=== PATIENT | female | born 1970 | race Two or more races ===

== ENCOUNTER 2020-10-10 11:33 | Outpatient (REF) | payer MEDICAID, SELFPAY | END 2020-10-10 11:34 | disposition home or self-care (01) | LOC: HO.LAB 11:33 | PROVIDERS: Visit Provider Internal Medicine | DX: Z20.822 Contact with and (suspected) exposure to COVID-19 (principal) | CPT/HCPCS: 36415; C9803; U0003; U0005 ==

== ENCOUNTER 2020-10-12 07:39 | Outpatient (REF) | payer MEDICAID, SELFPAY ==
[2020-10-12 14:52] LABS: CT PCR NOT DETECTED (Not Detect.); NG PCR NOT DETECTED (Not Detect.)
[2020-10-17 16:47] LABS: HPV mRNA E6/E7 rflx Not Detected (Not Detected)
== END 2020-10-12 07:40 | disposition home or self-care (01) ==
LOC: HO.LAB 07:39
PROVIDERS: PCP Internal Medicine; Visit Provider Advanced Practice Midwife
DX: Z01.419 Encounter for gynecological examination (general) (routine) without abnormal findings (principal); N90.7 Vulvar cyst; R03.0 Elevated blood-pressure reading, without diagnosis of hypertension; Z20.2 Contact with and (suspected) exposure to infections with a predominantly sexual mode of transmission; Z80.3 Family history of malignant neoplasm of breast
CPT/HCPCS: 36415; 87491; 87591; 87624; 88142

== ENCOUNTER 2020-11-30 07:37 | Outpatient (REF) | payer MEDICAID, SELFPAY ==
[2020-11-30 09:49] LABS: MANUAL DIFF FLAG NO
[2020-11-30 09:56] LABS: Basophils Percent Auto 0.5 % (0-2); Eosinophils Absolute Auto 0.2 X10*3/uL (0.0-0.4); Eosinophils Percent Auto 2.6 % (0-4); Hematocrit 42.9 % (37-47); Hemoglobin 13.9 g/dl (12.0-16.0); Imm Gran Abs Auto 0.04 X10*3/uL (0.00-0.03); Imm Gran Pct Auto 0.5 % (0.0-0.4); Lymphocytes Absolute Auto 2.2 X10*3/uL (1.2-4.9); Lymphocytes Percent Auto 25.9 % (20-40); Mean Corpuscular HGB Conc 32.4 g/dl (31.0-35.0); Mean Corpuscular Hemoglobin 26.6 pg (27.0-33.0); Mean Corpuscular Volume 82.2 fL (80-98); Monocytes Absolute Auto 0.6 X10*3/uL (0.1-1.2); Neutrophils Absolute Auto 5.4 X10*3/uL (2.0-8.3); Neutrophils Percent Auto 63.5 % (45-73); Platelet Count 342 X10*3/uL (160-400); Red Blood Count 5.22 X10*6/uL (4.20-5.50); White Blood Count 8.5 X10*3/uL (4.8-10.8)
[2020-11-30 10:14] LABS: Alanine Aminotransferase 24 U/L (0-31); Albumin Level 4.4 g/dL (3.5-5.0); Alkaline Phosphatase 92 U/L (39-117); Anion Gap 16 (12-20); Aspartate Amino Transferase 14 U/L (5-31); Bilirubin Total 0.2 mg/dL (0.0-1.0); Blood Urea Nitrogen 18 mg/dL (9-16); Calcium 10.1 mg/dL (8.4-10.2); Carbon Dioxide 28 mmol/L (22-29); Chloride 98 mmol/L (96-108); Cholesterol 237 mg/dL; Estimated Glomerular Filt Rate 56; Glucose Random 150 mg/dL (60-115); HDL Cholesterol 37 mg/dL; Potassium 4.5 mmol/L (3.3-5.1); Sodium 137 mmol/L (135-145); Total Protein 7.3 g/dL (6.5-8.0); Triglycerides 546 mg/dL
[2020-11-30 10:37] LABS: Thyroid Stimulating Hormone 2.21 uIU/mL (0.32-4.0)
== END 2020-11-30 07:38 | disposition home or self-care (01) ==
LOC: HO.LAB 07:37
PROVIDERS: PCP Internal Medicine; Visit Provider Internal Medicine
DX: N90.7 Vulvar cyst (principal); E78.2 Mixed hyperlipidemia; F32.89 Other specified depressive episodes; F41.8 Other specified anxiety disorders; I10 Essential (primary) hypertension
CPT/HCPCS: 36415; 56605; 80053; 80061; 84443; 85025; 88305

== ENCOUNTER → 2020-12-20 11:39 | Outpatient (BNVA) | payer MEDICAID, SELFPAY | PROVIDERS: Visit Provider Obstetrics & Gynecology ==

== ENCOUNTER 2021-01-06 08:10 | Outpatient (REF) | payer MEDICAID, SELFPAY ==
--- NOTE | ~2021-01-06 | MM_ITS ---
EXAMINATION: MM SCREENING DIGITAL BREAST TOMOSYNTHESIS, BILATERAL CLINICAL INFORMATION: Screening. Asymptomatic. The lifetime risk of breast cancer based on the Tyrer-Cuzick Model is 7%. COMPARISON: Mammography: 05/15/2019, 10/11/2016, 09/27/2016 TECHNIQUE: Digital breast tomosynthesis is performed in both the craniocaudal and mediolateral oblique views along with computer-aided detection (CAD). Synthesized 2D images are generated from the tomosynthesis. FINDINGS: The breasts are heterogeneously dense, which may obscure small masses (ACR BI-RADS breast composition Category c). Parenchymal pattern is similar to prior studies. There is no developing density or interval mass or architectural abnormality. Again, there are numerous scattered calcifications in both breasts, greater on left, similar in number and distribution to prior exams. The axilla and skin contours are unremarkable. MM/MM tomosynthesis screening BI IMPRESSION: No significant changes from prior exams. Diffuse bilateral calcifications similar to prior studies. ASSESSMENT: BI-RADS 2: Benign RECOMMENDATION: Routine annual mammography screening. This patient's information was entered into a reminder system with a target due date for their next mammogram.
== END 2021-01-06 08:11 | disposition home or self-care (01) ==
LOC: HO.MAMMO 08:10
PROVIDERS: Visit Provider Internal Medicine
DX: Z12.31 Encounter for screening mammogram for malignant neoplasm of breast (principal)
CPT/HCPCS: 77063; 77067

== ENCOUNTER 2021-04-30 09:04 | Outpatient (REF) | payer MEDICAID, SELFPAY | END 2021-04-30 09:05 | disposition home or self-care (01) | LOC: HO.LAB 09:04 | PROVIDERS: PCP Internal Medicine; Visit Provider Internal Medicine | DX: Z20.822 Contact with and (suspected) exposure to COVID-19 (principal) | CPT/HCPCS: C9803; U0003; U0005 ==

== ENCOUNTER 2021-05-08 16:30 | Inpatient (IN) | payer MEDICAID, SELFPAY ==
[2021-05-08] VITALS (7 sets, daily range): BP systolic 170–239; BP diastolic 61–103; PULSE 63–77; RESP 16–19; TEMP 36.8–36.9; O2SAT 97–100; BMI 28.3
--- NOTE | 2021-05-08 | ECG_ITS ---
Test Reason : REPEAT Blood Pressure : / mmHG Vent. Rate : 069 BPM Atrial Rate : 069 BPM P-R Int : 174 ms QRS Dur : 066 ms QT Int : 396 ms P-R-T Axes : 059 002 042 degrees QTc Int : 424 ms Normal sinus rhythm Normal ECG When compared with ECG of [id number] No significant changes seen Referred By: Klarissa Price Electronically Signed By:IRENA KNOWLES MD
--- NOTE | ~2021-05-08 | MR_ITS ---
MRI OF THE BRAIN WITHOUT IV CONTRAST INDICATION: Uncontrolled hypertension and headache. COMPARISON: Head CT 05/08/2021. TECHNIQUE: Multiplanar multisequence MR imaging of the brain was obtained without IV contrast. FINDINGS: There is no hydrocephalus, extra-axial surface collection, or herniation. There is an acute infarct within the right OFFAL ROLLER territory involving the right occipital lobe. Cytotoxic edema results in mild local sulcal effacement without midline shift. There is no hemorrhagic transformation. Mild background chronic microangiopathy. Chronic hemosiderin staining versus mineralization within the right putamen. Chronic lacunar infarct within the left thalamus. The major flow voids at the skull base are preserved. There is no intracranial hemorrhage on the gradient recalled echo acquisition. Pericallosal lipoma. The cerebellar tonsils are normally positioned. The cerebellum and brainstem are normal. The craniocervical junction is normal. Osseous marrow signal intensity is homogenous. The visualized soft tissues are unremarkable. MR/MR head/brain wo con IMPRESSION: - There is an acute infarct within the right occipital lobe in the right OFFAL ROLLER territory. No hemorrhagic transformation. - Pericallosal lipoma. - Chronic lacunar infarct within the left thalamus. Mild chronic microangiopathy. Chronic hemosiderin staining versus mineralization within the right putamen.
--- NOTE | ~2021-05-08 | CT_ITS ---
EXAMINATION: CT HEAD WITHOUT CONTRAST CLINICAL INFORMATION: high bp with headache rule out bleeding COMPARISON: 09/21/2018 TECHNIQUE: Contiguous axial imaging was performed from the skull base to vertex without intravenous administration of contrast. This CT examination was performed using dose optimization techniques as appropriate, variously including the following: *Automated exposure control *Adjustment of mA and/or kV according to patient size (this includes techniques or standardized protocols for targeted exams where dose is matched to indication/reason for exam; i.e. extremities or head) *Use of iterative reconstruction technique DLP: 688 mGy-cm FINDINGS: There is no evidence of acute intracranial hemorrhage or territorial infarction. No abnormal mass effect or midline shift is seen. Perdomo to white matter differentiation is well preserved. No extra-axial fluid collections are identified. The ventricles are normal in size. There is a chronic lacunar infarct in the left thalamus which is unchanged from prior. 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 The osseous structures and soft tissues are normal. The mastoid air cells and visualized portions of the paranasal sinuses are well aerated. CT/CT head/brain wo con IMPRESSION: No acute intracranial pathology.
--- NOTE | ~2021-05-08 | XR_ITS ---
EXAMINATION: XR CHEST CLINICAL INFORMATION: High blood pressure and TIA COMPARISON: 01/13/2019 TECHNIQUE: Frontal view of the chest was obtained. FINDINGS: No significant abnormality is noted involving the heart, lungs, mediastinum, bony thorax or soft tissues. XR/XR chest 1V IMPRESSION: Unremarkable examination.
--- NOTE | ~2021-05-08 | CT_ITS ---
EXAMINATION: CT ANGIOGRAM HEAD CT ANGIOGRAM NECK CLINICAL INFORMATION: Posterior stroke. COMPARISON: Brain MRI from 04/29/2021. TECHNIQUE: Initial noncontrast and rescue fire fighter crash fire imaging of the head and neck was performed. Noncontrast head CT was also performed. Test bolus sequences followed by intravenous administration 70 mL of Omnipaque 350. Helical imaging was performed in the axial plane from the aortic arch to the skull vertex. Delayed postcontrast imaging of the head was also performed. The data was processed at the process safety engineering technologist's workstation for generation of MIP sequences. Angled MIPs and volume rendered reformatted images were also generated at an offline 3D workstation. Stenoses are assessed in accordance with NASCET criteria unless otherwise indicated. This CT examination was performed using dose optimization techniques as appropriate, variously including the following: *Automated exposure control. *Adjustment of mA and/or kV according to patient size (this includes techniques or standardized protocols for targeted exams where dose is matched to indication/reason for exam; i.e. extremities or head). *Use of iterative reconstruction technique. DLP: 2347 mGy-cm FINDINGS: CT Head: There is a region of lost thomas-white matter differentiation within the posterior right occipitoparietal lobes correlating with previously demonstrated acute infarct. There is no evidence of acute intracranial hemorrhage. A few foci of hypoattenuation in the periventricular and deep white matter are consistent with mild to moderate microangiopathy. Chronic lacunar infarcts of the bilateral laminae. No additional loss of thomas-white matter differentiation. The ventricles are normal in size and configuration. No evidence for obstructive hydrocephalus. Posterior callosal lipoma. No abnormal mass effect or midline shift. No extra-axial fluid collections. No pathologic intra-axial enhancement. No acute soft tissue or osseous abnormalities. Mild mucosal thickening of the paranasal sinuses. The mastoid air cells and middle ear cavities are clear. CT Neck: The thyroid gland and remaining cervical soft tissues are within normal limits. Mild reversal the normal cervical lordosis centered on C4-C5. Moderate degenerative disc disease at C4-C5 and C5-C6. CT Upper Chest: The visualized lung apices and upper mediastinum are within normal limits. Neck CTA: Aortic Arch: Normal contour and caliber. Two vessel branching pattern of the arch with left common carotid artery arising from the brachiocephalic trunk. Great Vessel Origins: No significant stenosis of the branch origins. Right Common Carotid Artery: No focal stenosis or occlusion. Cervical Right Internal Carotid Artery: Mixed lipid rich and calcific atherosclerotic disease of the carotid bulb and proximal internal carotid artery causing less than 50% stenosis. Left Common Carotid Artery: No focal stenosis or occlusion. Cervical Left Internal Carotid Artery: Calcific atherosclerotic disease of the carotid bulb and proximal internal carotid artery causing less than 50% stenosis. Cervical Right Vertebral Artery: Co-dominant. No focal stenosis or occlusion. Cervical Left Vertebral Artery: Co-dominant. No focal stenosis or occlusion. Brain CTA: Intracranial Internal Carotid Arteries: Calcific atherosclerotic disease of the intracranial internal carotid arteries without occlusion or flow-limiting stenosis. There is a 0.3 cm triangular excrescence projecting inferiorly from the supraclinoid segment of the right ICA suggestive of a posterior, indicating artery infundibulum. Right Anterior Cerebral Artery: Normal A1 segment. Moderate stenosis of the A2 segment (image [id number]). Reconstitution of the distal ASHLEY segments. Left Anterior Cerebral Artery: Normal A1 segment. Normal opacification of the distal ASHLEY segments. Anterior Communicating Artery: Normal. Right Middle Cerebral Artery: Normal M1 segment of the MCA without focal stenosis or occlusion. Normal arborization of the distal segments. Left Middle Cerebral Artery: Normal M1 segment of the MCA without focal stenosis or occlusion. Normal arborization of the distal segments. Right Vertebral Artery: Normal V4 segment. Normal opacification of the proximal segments of the posterior inferior cerebellar artery. Left Vertebral Artery: Normal V4 segment. Normal opacification of the proximal segments of the posterior inferior cerebellar artery. Basilar Artery: Normal without focal stenosis or occlusion. Normal appearance of the proximal superior cerebellar arteries. Right Posterior Cerebral Artery: Normal P1 segment. Subtotal occlusion of the P1-P2 junction. Reconstitution of the distal WEATHER FORCASTER segments. Left Posterior Cerebral Artery: Normal P1 segment. Normal opacification of the distal WEATHER FORCASTER segments. Normal opacification of the superior sagittal, straight, transverse, and sigmoid sinuses. CT/CT angio head neck stroke IMPRESSION: 1. Evolving acute infarction of the right occipitoparietal lobes. No evidence of hemorrhagic conversion. Mild to moderate underlying microangiopathy. Chronic lacunar infarcts of the deep nuclei. 2. There is subtotal occlusion of the P1-P2 junction of the right WEATHER FORCASTER. 3. Moderate atherosclerotic stenosis of the A2 segment of the right ASHLEY. 4. CTA of the head and neck without additional proximal occlusion or flow-limiting stenosis.
[2021-05-08 18:41] LABS: MANUAL DIFF FLAG NO
[2021-05-08 18:45] LABS: Basophils Percent Auto 0.4 % (0-2); Eosinophils Absolute Auto 0.2 X10*3/uL (0.0-0.4); Eosinophils Percent Auto 2.5 % (0-4); Hematocrit 41.6 % (37-47); Hemoglobin 13.9 g/dl (12.0-16.0); Imm Gran Abs Auto 0.01 X10*3/uL (0.00-0.03); Imm Gran Pct Auto 0.1 % (0.0-0.4); Lymphocytes Percent Auto 29.2 % (20-40); Mean Corpuscular HGB Conc 33.4 g/dl (31.0-35.0); Mean Corpuscular Hemoglobin 27.4 pg (27.0-33.0); Mean Corpuscular Volume 81.9 fL (80-98); Mean Platelet Volume 10.1 fL (9.4-12.3); Monocytes Absolute Auto 0.4 X10*3/uL (0.1-1.2); Monocytes Percent Auto 6.3 % (2-11); Neutrophils Absolute Auto 4.2 X10*3/uL (2.0-8.3); Neutrophils Percent Auto 61.5 % (45-73); Platelet Count 279 X10*3/uL (160-400); Red Blood Count 5.08 X10*6/uL (4.20-5.50); Red Cell Distribution Width 13.9 % (11.0-16.0); White Blood Count 6.9 X10*3/uL (4.8-10.8)
[2021-05-08 18:58] LABS: Anion Gap 12 (12-20); Blood Urea Nitrogen 15 mg/dL (9-16); Calcium 9.3 mg/dL (8.4-10.2); Carbon Dioxide 31 mmol/L (22-29); Chloride 101 mmol/L (96-108); Estimated Glomerular Filt Rate 59; Glucose Random 104 mg/dL (60-115); Sodium 140 mmol/L (135-145)
--- NOTE | 2021-05-08 18:59 | ED_ITS ---
HPI - Neuro Symptoms/Deficit General Chief Complaint: Neuro Symptoms/Deficit Stated Complaint: high bp Time Seen by Provider: 05/08/21 18:59 Source: patient and interpreter deaf Mode of arrival: ambulatory Limitations: no limitations History of Present Illness HPI Narrative: 50-year-old female history of high blood pressure presented today for evaluation elevated high blood pressure and feeling numbness and weakness on her left side. Patient was cooking about 3 hours ago when suddenly started to feel lower lip numbness, left upper extremities numbness and heaviness, and felt dizziness with lightheadedness symptoms lasted for few minutes, then happened again. Patient while in the waiting room noted to have high blood pressure, but symptoms did not happen since then, patient declined chest pain, shortness of breath. Related Data Home Medications Medication Instructions Recorded Confirmed lisinopril 10 mg tablet 10 mg PO DAILY 10/12/20 Allergies Allergy/AdvReac Type Severity Reaction Status Date / Time No Known Allergies Allergy Verified 05/08/21 18:04 [No Known Allergies*] Review of Systems Review of Systems: All other systems are reviewed and are negative Constitutional: Reports as per HPI and Reports no additional constitutional complaints Eyes: Reports as per HPI and Reports no additional eye complaints Reports system reviewed and no additional complaints, except as documented Cardiovascular: Reports as per HPI and Reports no additional cardiovascular complaints Respiratory: Reports as per HPI and Reports no additional respiratory complaints Gastrointestinal: Reports as per HPI and Reports no additional gastrointestinal complaints Genitourinary: Reports no additional female genitourinary complaints Musculoskeletal: Reports no additional musculoskeletal complaints Skin/Breast: Reports system reviewed and no additional complaints, except as docu Psychiatric: Reports no additional psychiatric complaints Endocrine: Reports no additional endocrine complaints Hematologic/Lymphatic: Reports no additional hematologic/lymphatic complaints Allergic/Immunologic: Reports no additional allergic/immunologic complaints Reports system reviewed and no additional complaints, except as documented and R eports Abnormal speech present [facility] Past Medical History Medical History Abnormal Pap smear of cervix CVA (cerebral vascular accident) Depression FH: breast cancer in first degree relative HTN (hypertension) Hypertension Ovarian cyst Surgical History H/O prior ablation treatment History of removal of ovarian cyst Hx of tubal ligation Family History Family History Paternal Aunt Breast cancer Sister Breast cancer, Onset Age: 46 Social History Social History Alcohol intake: never Patient Tobacco Use Status: Never used Tobacco Use of substances other than those prescribed or required for medical reasons: No Advance Directives: No Advance Directives Information Provided: No Patient : No Gender identity: Female Physical Exam Vital Signs: Vital Signs: Last Vital Signs Temp 98.2 F 05/08/21 19:04 Pulse 63 05/08/21 19:08 Resp 18 05/08/21 19:04 BP 198/73 H 05/08/21 19:08 Pulse Ox 99 05/08/21 19:04 Body Mass Index 28.3 Vital signs have been reviewed as appeared to be correct. Blood pressure elevated. Heart rate normal. Respiration rate normal. Temperature normal. Oxygen saturation normal. Appearance: Alert. Oriented X3. No acute distress. Head: Normal external exam. Normocephalic. Atraumatic. No Taylor signs noted. No raccoon eyes noted Eyes: PERRLA. EOMI. Conjunctiva and sclera normal. Eyelids normal. ENT: TM's Normal. Pharynx normal. Uvula midline. Moist mucous membranes. No trismus noted. No drooling noted. No muffled voice noted. Neck: Normal inspection. Neck supple. FROM. No adenopathy. Thyroid Normal. No meningeal signs. No neck mass noted. CVS: Normal heart rate and rhythm. Heart sound normal. No murmurs noted. Pulses normal throughout. Respiratory: No respiratory distress. Painless inspiration. Breath sounds n ormal. No wheezes/rales/rhonchi noted. Chest nontender. No accessory muscle usage noted or decreased air movement noted. Abdomen: Soft and nontender. Bowel sounds normal in all 4 quadrants. No diste ntion noted. No organomegaly noted. No visible injury noted. Back: No CVA tenderness. Full range of motion noted. Skin: Skin warm and dry. Normal skin color. Normal skin turgor. No rashes/lesions/lacerations noted. Extremities: No lower extremity edema. Extremities exhibit normal range of m otion. Extremities nontender. Neuro: Oriented X 3. Cranial nerve exam: II-XII are grossly intact No motor deficit. No sensory deficit. Reflexes normal. Course Course Course Narrative: Assessment and plan. 50-year-old female history of hypertension on lisinopril at home, patient had left upper extremities weakness and numbness that last for few minutes and then resolved, patient found to be hypertensive in the emergency department at that lowered with p.o. amlodipine. Patient also was complaining of headache and dizziness, patient's symptoms resolved after controlling blood pressure, repeat neurological exam is intact, NIH score is 0. Will admit the patient for further neurological evaluation. MDM - Neuro Symptoms/Deficit Medical Records Attestation: I reviewed the patient's medical records. Lab Data Attestation: I reviewed the patient's lab results. Result diagrams: 05/08/21 18:35 05/08/21 18:35 Labs: Lab Results 05/08/21 05/08/21 Range/Units 18:35 18:35 WBC 6.9 (4.8-10.8) X10*3/uL RBC 5.08 (4.20-5.50) X10*6/uL Hgb 13.9 (12.0-16.0) g/dl Hct 41.6 (37-47) % MCV 81.9 (80-98) fL MCH 27.4 (27.0-33.0) pg MCHC 33.4 (31.0-35.0) g/dl RDW 13.9 (11.0-16.0) % Plt Count 279 (160-400) X10*3/uL MPV 10.1 (9.4-12.3) fL Immature Gran % (Auto) 0.1 (0.0-0.4) % Neut % (Auto) 61.5 (45-73) % Lymph % (Auto) 29.2 (20-40) % Rooks % (Auto) 6.3 (2-11) % Eos % (Auto) 2.5 (0-4) % Baso % (Auto) 0.4 (0-2) % Lymph # (Auto) 2.0 (1.2-4.9) X10*3/uL Rooks # (Auto) 0.4 (0.1-1.2) X10*3/uL Eos # (Auto) 0.2 (0.0-0.4) X10*3/uL Baso # (Auto) 0.0 (0.0-0.2) X10*3/uL Abs Immat Gran (auto) 0.01 (0.00-0.03) X10*3/uL Absolute Neuts (auto) 4.2 (2.0-8.3) X10*3/uL Absolute Nucleated RBC 0.000 (0.0-0.012) X10*3/uL Nucleated RBC % (auto) 0.0 (0.0-0.2) /100WBC Sodium 140 (135-145) mmol/L Potassium 4.0 (3.3-5.1) mmol/L Chloride 101 (96-108) mmol/L Carbon Dioxide 31 H (22-29) mmol/L Anion Gap 12 (12-20) BUN 15 (9-16) mg/dL Creatinine 0.99 (0.5-1.4) mg/dL Estim Creat Clear Calc 80.0 Estimated GFR 59 Random Glucose 104 (60-115) mg/dL Calcium 9.3 D (8.4-10.2) mg/dL Imaging Data CT scan - head: Radiologist's impression: No acute intracranial pathology. Chest x-ray: Radiologist's impression: Unremarkable examination. NIH Stroke Scale Internal: Initial- Upon Arrival Time: 19:20 Level of Consciousness: Alert Level of Consciousness Questions: Answers both questions correctly Level of Consciousness Commands: Performs both tasks correctly Best Gaze: Normal Visual: No visual loss Facial Palsy: Normal Motor Arm (Right): No drift Motor Arm (Left): No drift Motor Leg (Right): No drift Motor Leg (Left): No drift Limb Ataxia: Absent Sensory: Normal Best Language: No aphasia Dysarthia: Normal Extinction and Inattention: No abnormality Score: 0 Discharge Plan Discharge Clinical Impression: Hypertensive urgency, TIA (transient ischemic attack) Patient Disposition: Admitted As Inpatient Prescriptions: No Action lisinopril 10 mg tablet 10 mg PO DAILY RF: 0
[2021-05-08] MEDS: amLODIPine Besylate 5 MG TABLET PO (19:08)
--- NOTE | 2021-05-08 19:45 | PC.NURSE ---
Pt alert and oriented x4, calm and cooperative. Pt states headache and dizziness when getting out of bed. Pt states intermittent nasuea, none at this time. Pt BP very elevated, MD aware and medications given tolerated well. IV placed. Pt resting in stretcher stable at this time.
--- NOTE | 2021-05-08 21:26 | P.HPHOSP_ITS ---
History of Present Illness Date of Service: 05/08/21 Chief Complaint: headache, elevated bp 50-year-old female with past medical history of CVA, hypertension on 10 mg of lisinopril, history of depression presents to the hospital with acute complaints of elevated blood pressure as well as headache. Patient reports that she checked her blood pressure at home was in the 200/100s, she is having a significant headache therefore not really forthcoming with much information. She reports that her blood pressure is always this high, she is on lisinopril and reports compliance. Patient is also complaining of left-sided weakness numbness and tingling as well as lower lip tingling. The headache is diffuse, associated with blurred vision in the left eye that has now improved. Denies having any chest pain, palpitations, abdominal pain nausea or vomiting, no diarrhea constipation, urinary symptoms and no lower extremity edema. On arrival today the patient found to have blood pressure of 239/103, received a morphine p.o. with improvement of her blood pressure to 188/73, Labs unremarkable, EKG shows normal sinus rhythm Head CT done shows no acute intracranial pathology Patient will be admitted for further management Review of Systems Review of Systems: Yes all other systems are reviewed and are negative [facility] Medical History Abnormal Pap smear of cervix CVA (cerebral vascular accident) Depression FH: breast cancer in first degree relative HTN (hypertension) Hypertension Ovarian cyst Family History Paternal Aunt Breast cancer Sister Breast cancer, Onset Age: 46 Pertinent family history: Hypertension Surgical History H/O prior ablation treatment History of removal of ovarian cyst Hx of tubal ligation Social History Alcohol intake: never Patient Tobacco Use Status: Never used Tobacco Use of substances other than those prescribed or required for medical reasons: No Advance Directives: No Advance Directives Information Provided: No Patient : No Gender identity: Female Meds Allergies Allergy/AdvReac Type Severity Reaction Status Date / Time No Known Allergies Allergy Verified 05/08/21 18:04 [No Known Allergies*] Active Medications: Current Medications Acetaminophen (Acetaminophen 325 Mg Tablet) 650 mg PO Q6H PRN PRN Reason: Pain, Mild (Pain Scale 1-3) Oxycodone HCl (Oxycodone Hcl Immed Release 5 Mg Tablet) 5 mg PO ONCE ONE Stop: 05/08/21 21:26 Home Medications Medication Instructions Recorded Confirmed Last Taken Type hydroxyzine pamoate 50 mg capsule 1 cap PO DAILY PRN 05/08/21 05/08/21 Unknown History ketotifen fumarate 0.025 % (0.035 drp 05/08/21 Unknown History %) eye drops lisinopril 20 1 tab PO DAILY 05/08/21 05/08/21 Unknown History mg-hydrochlorothiazide 25 mg tablet trazodone 150 mg tablet 1 tab PO BEDTIME 05/08/21 05/08/21 Unknown History Physical Exam Vital Signs and Narrative: Vital Signs: Last Vital Signs Temp 98.2 F 05/08/21 19:04 Pulse 69 05/08/21 20:50 Resp 16 05/08/21 20:50 BP 211/99 H 05/08/21 20:50 Pulse Ox 97 05/08/21 20:50 Body Mass Index 28.3 Const: General: cooperative and no acute distress Orien tation/consciousness: patient oriented x3 Eyes: General: appearance normal, both eyes and all related structures Resp: Effort & Inspection: normal respiratory effort Auscultation: clear to auscultation bilaterally Cardio: Rate: regular rate Rhythm: regular rhythm GI: Palpation (GI): Soft to palpation Auscultation: normal bowel sounds Skin: General skin exam: no rashes or lesions noted Neuro: Other: Cranial nerves 2-12 intact Has 4/5 strength in the left upper and lower extremities General: patient oriented x3 Cognition (Neuro): normal cognition Extrem: General: Yes normal to inspection and Yes no pedal edema Results Labs CBC and Chem 7: 05/08/21 18:35 05/08/21 18:35 Labs: Laboratory Results - last 24 hr 05/08/21 05/08/21 18:35 18:35 MCV 81.9 MCH 27.4 MCHC 33.4 RDW 13.9 Plt Count 279 MPV 10.1 Immature Gran % (Auto) 0.1 Neut % (Auto) 61.5 Lymph % (Auto) 29.2 Casey % (Auto) 6.3 Eos % (Auto) 2.5 Baso % (Auto) 0.4 Lymph # (Auto) 2.0 Casey # (Auto) 0.4 Eos # (Auto) 0.2 Baso # (Auto) 0.0 Abs Immat Gran (auto) 0.01 Absolute Neuts (auto) 4.2 Absolute Nucleated RBC 0.000 Nucleated RBC % (auto) 0.0 Anion Gap 12 Estim Creat Clear Calc 80.0 Estimated GFR 59 Random Glucose 104 Calcium 9.3 D Imaging Radiologist's Impressions: Impressions Head CT 05/08/21 19:01 IMPRESSION: No acute intracranial pathology. Chest X-Ray 05/08/21 19:12 IMPRESSION: Unremarkable examination. Assessment and Plan (1) Hypertensive emergency: Status: Acute (2) Headache: Status: Acute This is a 50-year-old female with past medical history of hypertension presents to the hospital with a blood pressure of 239/100 as well as weakness numbness and tingling of her left side # hypertensive emergency - patient blood pressure improved after receiving amlodipine p.o. - she continued to have weakness numbness and tingling of her left side although improved - patient does have history of CVA foot not forthcoming with much details about that therefore unclear of her neurological exam showing strength of 4/5 in the left extremity is residual weakness from previous CVA - patient is on lisinopril-HTCZ will increase lisinopril to 40 mg and give 1st dose now - will order MRI of the brain - consult neurology # headache - most likely secondary to above - blood pressure control no lower than 25% in the next few hours - pain control DVT prophylaxis: [email or web address] Quality Stroke Does the patient have a stroke diagnosis?: No VTE Prior VTE?: No VTE Risk Level:: Medical - moderate - high VTE Device Contraindication: Treatment Not Indicated VTE Drug Contraindication: N/A - Med Ordered
[2021-05-08] MEDS: oxyCODONE HCl Immed Release 5 MG TABLET PO (21:43)
[2021-05-08] MEDS: Enoxaparin Sodium 40 MG/0.4 ML SYRINGE SUBCUT (23:55)
[2021-05-08] MEDS: lisinopriL 40 MG TABLET PO (23:55)
[2021-05-09] VITALS (12 sets, daily range): BP systolic 146–217; BP diastolic 67–108; PULSE 70–83; RESP 16–20; TEMP 36.5–36.7; O2SAT 97–98
[2021-05-09 00:34] LABS: COVID-19 Test Negative (Negative)
--- NOTE | 2021-05-09 03:06 | PC.NURSE ---
REPORT TAKEN FROM PAO RN, FIRST CONTACT WITH PT. RESTING IN BED SKIN PWD RESPIRATIONS EVEN UNLABORED. AWAITING BED ASSIGNMENT FOR ADMISSION. WILL CONTINUE TO MONITOR.
[2021-05-09 06:33] LABS: MANUAL DIFF FLAG NO
[2021-05-09 06:36] LABS: Basophils Percent Auto 0.6 % (0-2); Eosinophils Absolute Auto 0.2 X10*3/uL (0.0-0.4); Eosinophils Percent Auto 2.5 % (0-4); Hematocrit 41.3 % (37-47); Hemoglobin 13.4 g/dl (12.0-16.0); Imm Gran Abs Auto 0.01 X10*3/uL (0.00-0.03); Imm Gran Pct Auto 0.2 % (0.0-0.4); Lymphocytes Absolute Auto 1.6 X10*3/uL (1.2-4.9); Mean Corpuscular HGB Conc 32.4 g/dl (31.0-35.0); Mean Corpuscular Hemoglobin 26.2 pg (27.0-33.0); Mean Corpuscular Volume 80.8 fL (80-98); Mean Platelet Volume 10.2 fL (9.4-12.3); Monocytes Absolute Auto 0.4 X10*3/uL (0.1-1.2); Monocytes Percent Auto 6.9 % (2-11); Neutrophils Absolute Auto 4.1 X10*3/uL (2.0-8.3); Neutrophils Percent Auto 64.8 % (45-73); Platelet Count 277 X10*3/uL (160-400); Red Blood Count 5.11 X10*6/uL (4.20-5.50); Red Cell Distribution Width 13.8 % (11.0-16.0); White Blood Count 6.4 X10*3/uL (4.8-10.8)
[2021-05-09 06:47] LABS: Anion Gap 11 (12-20); Blood Urea Nitrogen 12 mg/dL (9-16); Calcium 8.8 mg/dL (8.4-10.2); Carbon Dioxide 28 mmol/L (22-29); Chloride 103 mmol/L (96-108); Creatinine Clr Calc Pharmacy 100.2; Estimated Glomerular Filt Rate > 60; Glucose Random 104 mg/dL (60-115); Potassium 3.9 mmol/L (3.3-5.1); Sodium 138 mmol/L (135-145)
[2021-05-09] MEDS: amLODIPine Besylate 5 MG TABLET PO (09:15)
[2021-05-09] MEDS: Acetaminophen 325 MG TABLET 650 MG PO ×2 (09:15→20:14)
[2021-05-09] MEDS: lisinopriL 10 MG TABLET 30 MG PO (09:15)
[2021-05-09] MEDS: hydroCHLOROthiazide 25 MG TABLET PO (09:15)
--- NOTE | 2021-05-09 10:38 | P.CNNE_ITS ---
History of Present Illness Data of Consult Service Date: 05/09/21 Primary Care Provider: Ani Bright MD [facility] Reason for consult: Headache and numbness 50 years old woman who probably has underlying hypertension that she was not treating well came to hospital with the headache blurred vision numbness and tingling on face and left hand and arm numbness. Her blood pressure at home was 200 systolic and in emergency room was 211 systolic. When I saw her she was feeling little bit better. She had received some treatment for hypertension. She reported having headaches about once or twice a month each 1 lasting for about a day. Review of Systems Review of Systems: No recent cold or flu-like illness or trauma. [facility] Past Medical History Medical History Abnormal Pap smear of cervix CVA (cerebral vascular accident) Depression FH: breast cancer in first degree relative HTN (hypertension) Hypertension Ovarian cyst Family History Family History Paternal Aunt Breast cancer Sister Breast cancer, Onset Age: 46 Surgical History Surgical History H/O prior ablation treatment History of removal of ovarian cyst Hx of tubal ligation Social History Social History Alcohol intake: never Patient Tobacco Use Status: Never used Tobacco Use of substances other than those prescribed or required for medical reasons: No Advance Directives: No Advance Directives Information Provided: No Patient : No Gender identity: Female Meds Allergies Allergy/AdvReac Type Severity Reaction Status Date / Time No Known Allergies Allergy Verified 05/08/21 18:04 [No Known Allergies*] Active Medications: Current Medications Acetaminophen (Acetaminophen 325 Mg Tablet) 650 mg PO Q6H PRN PRN Reason: Pain, Mild (Pain Scale 1-3) Last Admin: 05/09/21 09:15 Dose: 650 mg Documented by: Amlodipine Besylate (Amlodipine Besylate 5 Mg Tablet) 5 mg PO DAILY [facility]IA; Protocol Last Admin: 05/09/21 09:15 Dose: 5 mg Documented by: Docusate Sodium (Docusate Sodium 100 Mg Capsule) 100 mg PO DAILY PRN PRN Reason: Constipation Enoxaparin Sodium (Enoxaparin Sodium 40 Mg/0.4 Ml Syringe) 40 mg SUBCUT Q24H [facility] Last Admin: 05/08/21 23:55 Dose: 40 mg Documented by: Hydrochlorothiazide (Hydrochlorothiazide 25 Mg Tablet) 25 mg PO DAILY [facility]; Protocol Last Admin: 05/09/21 09:15 Dose: 25 mg Documented by: Lisinopril (Lisinopril 10 Mg Tablet) 30 mg PO DAILY [facility]; Protocol Last Admin: 05/09/21 09:15 Dose: 30 mg Documented by: Ondansetron HCl (Ondansetron Hcl 4 Mg/2 Ml Vial) 4 mg IVPUSH Q8H PRN PRN Reason: Nausea and Vomiting Pharmacy Consult (Consult Rx Perform Med Rec) 1 each MISCELLANE ONCE PRN PRN Reason: Consult order Sodium Chloride (0.9 % Sodium Chloride Flush 3 Ml Syringe) 3 ml IVFLUSH QSHIFT [facility] Last Admin: 05/09/21 07:14 Dose: Not Given Documented by: Trazodone HCl (Trazodone Hcl 50 Mg Tablet) 150 mg PO BEDTIME [facility] Home Medications Medication Instructions Recorded Confirmed Last Taken Type hydroxyzine pamoate 50 mg capsule 1 cap PO DAILY PRN 05/08/21 05/08/21 Unknown History ketotifen fumarate 0.025 % (0.035 drp 05/08/21 Unknown History %) eye drops lisinopril 20 1 tab PO DAILY 05/08/21 05/08/21 Unknown History mg-hydrochlorothiazide 25 mg tablet trazodone 150 mg tablet 1 tab PO BEDTIME 05/08/21 05/08/21 Unknown History Physical Exam Vital Signs: Vital Signs: Last Vital Signs Temp 98.4 F 05/08/21 23:56 Pulse 71 05/09/21 10:25 Resp 16 05/09/21 10:25 BP 158/78 H 05/09/21 10:25 Pulse Ox 98 05/09/21 10:25 Body Mass Index 28.3 Neuro: Other: Alert and awake with normal spontaneity of speech fluency comprehension and affect. She was moderately obese. Extraocular muscles were intact. Visual galvez are full. Face was symmetrical. There was no obvious focal weakness. Deep tendon reflexes were 2+ with flexor plantars. Results Labs CBC & Chem 7: 05/09/21 06:22 05/09/21 06:22 Labs: Short CBC 05/08/21 05/09/21 Range/Units 18:35 06:22 WBC 6.9 6.4 (4.8-10.8) X10*3/uL Hgb 13.9 13.4 (12.0-16.0) g/dl Hct 41.6 41.3 (37-47) % Plt Count 279 277 (160-400) X10*3/uL BMP 05/08/21 05/09/21 18:35 06:22 Sodium 140 138 Potassium 4.0 3.9 Chloride 101 103 Carbon Dioxide 31 H 28 BUN 15 12 Creatinine 0.99 0.79 Calcium 9.[address] did not reveal any significant pathology. Assessment and Plan (1) TIA (transient ischemic attack): Status: Acute 50 years old woman with uncontrolled hypertension presented with headache and multiple symptoms. These symptoms were likely due to hypertension with microvascular ischemia. There was also possibility of underlying migraine but that would not explain her hypertension. Mainstay of management at this time is blood pressure control. Other vascular risk factors including lipid profile should also be checked. I would recommend baby aspirin daily for for headaches, as needed Fioricet type of medicines are recommended vascular disease prevention. (2) Migraine: Status: Acute Procedures Date of Service Date of Service: 05/09/21
--- NOTE | 2021-05-09 11:18 | P.DS_ITS ---
DS: Providers Provider Date of Service: 05/11/21 Date of admission: 05/08/21 21:35 Primary care physician: Ani Bright MD Consults: 05/08/21 21:31 Consult to Neurology Routine Consulting Provider: [facility] Reason for consultation: left sided weakness post hypertensive emergency Has provider been notified: No DS: Diagnosis Discharge Diagnosis (1) TIA (transient ischemic attack): Status: Acute (2) Migraine: Status: Acute DS: Summary Hospital Course Hospital Course: Chief Complaint: headache, elevated bp 50-year-old female with past medical history of CVA, hypertension on 10 mg of lisinopril, history of depression presents to the hospital with acute complaints of elevated blood pressure as well as headache.? Patient reports that she checked her blood pressure at home was in the 200/100s, she is having a significant headache therefore not really forthcoming with much information.? She reports that her blood pressure is always this high, she is on lisinopril and reports compliance.? Patient is also complaining of left-sided weakness numbness and tingling as well as lower lip tingling.? The headache is diffuse, associated with blurred vision in the left eye that has now improved. Denies having any chest pain, palpitations, abdominal pain nausea or vomiting, no diarrhea constipation, urinary symptoms and no lower extremity edema. On arrival today the patient found to have blood pressure of 239/103, received a morphine p.o. with improvement of her blood pressure to 188/73, Labs unremarkable, EKG shows normal sinus rhythm Head CT done shows no acute intracranial pathology Patient will be admitted for further management Hospital course: 50-year-old female with past medical history of hypertension presents to the hospital with a blood pressure of 239/100 as well as weakness numbness and tingling of her left side and visual changes, MRI shows?acute infarct within the right occipital lobe in the right SOLAR ENERGY TECHNICIAN territory 1/acute infarct within the right occipital lobe in the right SOLAR ENERGY TECHNICIAN territory causing visual changes (bluriness) and headache. Headache has signficantly improved. Blur vision persist. PT and OT have been working with her and recommending acute inpatient rehab. Her medical management consists of BP control, statin, ASA. # hypertensive emergency--this is probably part of underlying stroke, it has resolved. Blood pressure is now better, and need to be agresively controlled to mitigate risk of further stroke. Presently, she is presently on Lisinopril 40 mg daily, HCTZ 25 and amlodipine 5 daily. #Headache likely related? to stroke, Tyelenol, fiorocet or Oxycodone for headace Time Spent with Patient Time attestation: Total time spent providing and/or coordinating discharge services: Discharge coordination time: Greater than 30 minutes Quality: Stroke Does the patient have a stroke diagnosis?: No Physical Exam Vital Signs: Vital Signs: Last Vital Signs Temp 98.4 F 05/08/21 23:56 Pulse 71 05/09/21 10:25 Resp 16 05/09/21 10:25 BP 158/78 H 05/09/21 10:25 Pulse Ox 98 05/09/21 10:25 Body Mass Index 28.3 Constitutional: Alert, in no distress, overweight. Mental Status: Oriented to person, place and time. Eyes: Pupils are equal, round and reactive to light. Ear, Nose and Throat: Oropharynx clear, Respiratory: Clear to auscultation. No wheezing, rales or rhonchi. Cardiovascular: S1 S2 regular. No murmurs, rubs or gallops. Gastrointestinal: Abdomen soft, non-tender, non-distended. Normal bowel sounds.? Neurologic: Cranial nerves II-XII grossly intact. No focal neurological deficits. Moves all extremities spontaneously.? Skin: No rashes or lesions.? Musculoskeletal: No cyanosis or clubbing. Psychiatric: Normal mood and affect? DS: Data Data Completed and Pending Labs on day of discharge: Laboratory Results - last 24 hr 05/08/21 05/08/21 05/08/21 18:35 18:35 23:59 WBC 6.9 RBC 5.08 Hgb 13.9 Hct 41.6 MCV 81.9 MCH 27.4 MCHC 33.4 RDW 13.9 Plt Count 279 MPV 10.1 Immature Gran % (Auto) 0.1 Neut % (Auto) 61.5 Lymph % (Auto) 29.2 Sutter % (Auto) 6.3 Eos % (Auto) 2.5 Baso % (Auto) 0.4 Lymph # (Auto) 2.0 Sutter # (Auto) 0.4 Eos # (Auto) 0.2 Baso # (Auto) 0.0 Abs Immat Gran (auto) 0.01 Absolute Neuts (auto) 4.2 Absolute Nucleated RBC 0.000 Nucleated RBC % (auto) 0.0 Sodium 140 Potassium 4.0 Chloride 101 Carbon Dioxide 31 H Anion Gap 12 BUN 15 Creatinine 0.99 Estim Creat Clear Calc 80.0 Estimated GFR 59 Random Glucose 104 Calcium 9.3 D COVID-19 (RANDAL) Negative COVID-19 Clin Com See Note 05/09/21 05/09/21 06:22 06:22 WBC 6.4 RBC 5.11 Hgb 13.4 Hct 41.3 MCV 80.8 MCH 26.2 L MCHC 32.4 RDW 13.8 Plt Count 277 MPV 10.2 Immature Gran % (Auto) 0.2 Neut % (Auto) 64.8 Lymph % (Auto) 25.0 Sutter % (Auto) 6.9 Eos % (Auto) 2.5 Baso % (Auto) 0.6 Lymph # (Auto) 1.6 Sutter # (Auto) 0.4 Eos # (Auto) 0.2 Baso # (Auto) 0.0 Abs Immat Gran (auto) 0.01 Absolute Neuts (auto) 4.1 Absolute Nucleated RBC 0.000 Nucleated RBC % (auto) 0.0 Sodium 138 Potassium 3.9 Chloride 103 Carbon Dioxide 28 Anion Gap 11 L BUN 12 Creatinine 0.79 Estim Creat Clear Calc 100.2 Estimated GFR > 60 Random Glucose 104 Calcium 8.8 COVID-19 (RANDAL) COVID-19 Clin Com Discharge Plan Discharge Anticipated Discharge Date/Time: 05/11/21 09:27 Patient Disposition: Home, Self-Care Discharge Diagnosis: Uncontrolled HTN, miagaine headache Referrals: Ani Bright MD [Primary Care Provider] - 1 Week Discharge Medications: New hydrochlorothiazide 25 mg tablet 25 mg PO QAM Qty: 30 RF: 0 amlodipine [Norvasc] 5 mg tablet 5 mg PO DAILY Qty: 30 RF: 0 [id number] [Fioricet] 50-300-40 mg capsule 1 cap PO Q8H PRN (Reason: headache) Qty: 14 RF: 0 lisinopril 40 mg tablet 40 mg PO DAILY Qty: 30 RF: 0 Continued ketotifen fumarate 0.025 % (0.035 %) drops RF: 0 hydroxyzine pamoate 50 mg capsule 1 cap PO DAILY PRN (Reason: Anxiety) RF: 0 trazodone 150 mg tablet 1 tab PO BEDTIME RF: 0 Discontinued lisinopril-hydrochlorothiazide 20-25 mg tablet 1 tab PO DAILY RF: 0 Discharge Orders: Discharge Order (Routine); Ordered 05/11/21 Ordered By: Alon Hennessy Diet: advance to usual diet Activity on Discharge: As tolerated Stand Alone Forms: Patient Portal Discharge page Care Plan Goals: Blood pressure control Health Concerns: Scute storke, uncontrolled HTN Plan of Treatment: Take bloodpre pressure medication as directed and take Fiorocet as needed for headace Take HCTZ, Lisinopril, Norvasc as directed for blood pressure control Assessment: as above
[2021-05-09] MEDS: Butalb/Acetamin/Caff 50/325/40 TABLET 1 TAB PO ×2 (11:29→15:48)
[2021-05-09] MEDS: Aspirin 81 MG TAB.CHEW PO (11:29)
[2021-05-09 11:39] LABS: Cholesterol 195 mg/dL; HDL Cholesterol 39 mg/dL; LDL Cholesterol Calculated 95 mg/dl; Triglycerides 309 mg/dL
--- NOTE | 2021-05-09 12:31 | P.PNIM_ITS ---
Subjective Subjective Date of Service: 05/09/21 Interval History: Seen in f/u for headache, uncontrolled HTN, persistent headach and now c/o some vision changes. BP is better. Neuro has seen her and is recommending MRI Review of Systems headache no fever Physical Exam Vital Signs: Vital Signs: Last Vital Signs Temp 98.4 F 05/08/21 23:56 Pulse 71 05/09/21 10:25 Resp 16 05/09/21 10:25 BP 158/78 H 05/09/21 10:25 Pulse Ox 98 05/09/21 10:25 Body Mass Index 28.3 Constitutional: Alert, in no distress, overweight. Mental Status: Oriented to person, place and time. Eyes: Pupils are equal, round and reactive to light. Ear, Nose and Throat: Oropharynx clear, mucous membranes moist. Ears and nose without eformities. Trachea midline. Respiratory: Clear to auscultation. No wheezing, rales or rhonchi. Cardiovascular: S1 S2 regular. No murmurs, rubs or gallops. Gastrointestinal: Abdomen soft, non-tender, non-distended. Normal bowel sounds.? Neurologic: Cranial nerves II-XII grossly intact. No focal neurological deficits. Moves all extremities spontaneously.? Skin: No rashes or lesions.? Musculoskeletal: No cyanosis or clubbing. Psychiatric: Normal mood and affect? Objective Data Active Medications Acetaminophen (Acetaminophen 325 Mg Tablet) 650 mg PO Q6H PRN PRN Reason: Pain, Mild (Pain Scale 1-3) Last Admin: 05/09/21 09:15 Dose: 650 mg Documented by: JOSH Acetaminophen/Butalbital/Caffeine (Butalb/Acetamin/Caff 50/325/40 Tablet) 1 tab PO Q4H PRN PRN Reason: Headache Last Admin: 05/09/21 11:29 Dose: 1 tab Documented by: JOSH Amlodipine Besylate (Amlodipine Besylate 5 Mg Tablet) 5 mg PO DAILY [facility]; Protocol Last Admin: 05/09/21 09:15 Dose: 5 mg Documented by: JOSH Aspirin (Aspirin 81 Mg Tab.Chew) 81 mg PO DAILY COUNT [facility] Last Admin: 05/09/21 11:29 Dose: 81 mg Documented by: JOSH Docusate Sodium (Docusate Sodium 100 Mg Capsule) 100 mg PO DAILY PRN PRN Reason: Constipation Enoxaparin Sodium (Enoxaparin Sodium 40 Mg/0.4 Ml Syringe) 40 mg SUBCUT Q24H COUNT [facility] Last Admin: 05/08/21 23:55 Dose: 40 mg Documented by: VIVEK Hydrochlorothiazide (Hydrochlorothiazide 25 Mg Tablet) 25 mg PO DAILY [facility]; Protocol Last Admin: 05/09/21 09:15 Dose: 25 mg Documented by: JOSH Lisinopril (Lisinopril 10 Mg Tablet) 30 mg PO DAILY [facility]; Protocol Last Admin: 05/09/21 09:15 Dose: 30 mg Documented by: JOSH Ondansetron HCl (Ondansetron Hcl 4 Mg/2 Ml Vial) 4 mg IVPUSH Q8H PRN PRN Reason: Nausea and Vomiting Pharmacy Consult (Consult Rx Perform Med Rec) 1 each MISCELLANE ONCE PRN PRN Reason: Consult order Sodium Chloride (0.9 % Sodium Chloride Flush 3 Ml Syringe) 3 ml IVFLUSH QSHIFT COUNT [facility] Last Admin: 05/09/21 07:14 Dose: Not Given Documented by: JOSH Non-Admin Reason: Med Not Available Trazodone HCl (Trazodone Hcl 50 Mg Tablet) 150 mg PO BEDTIME COUNT [facility]CLUD[facility] Labs CBC & Chem 7: 05/09/21 06:22 05/09/21 06:22 Labs: Laboratory Results - last 24 hr 05/08/21 05/08/21 05/08/21 18:35 18:35 23:59 MCV 81.9 MCH 27.4 MCHC 33.4 RDW 13.9 Plt Count 279 MPV 10.1 Immature Gran % (Auto) 0.1 Neut % (Auto) 61.5 Lymph % (Auto) 29.2 [place] % (Auto) 6.3 Eos % (Auto) 2.5 Baso % (Auto) 0.4 Lymph # (Auto) 2.0 [place] # (Auto) 0.4 Eos # (Auto) 0.2 Baso # (Auto) 0.0 Abs Immat Gran (auto) 0.01 Absolute Neuts (auto) 4.2 Absolute Nucleated RBC 0.000 Nucleated RBC % (auto) 0.0 Anion Gap 12 Estim Creat Clear Calc 80.0 Estimated GFR 59 Random Glucose 104 Calcium 9.3 D Triglycerides Cancelled Cholesterol Cancelled LDL Cholesterol, Calc Cancelled HDL Cholesterol Cancelled COVID-19 (RANDAL) Negative COVID-19 Clin Com See Note 05/09/21 05/09/21 06:22 06:22 MCV 80.8 MCH 26.2 L MCHC 32.4 RDW 13.8 Plt Count 277 MPV 10.2 Immature Gran % (Auto) 0.2 Neut % (Auto) 64.8 Lymph % (Auto) 25.0 [place] % (Auto) 6.9 Eos % (Auto) 2.5 Baso % (Auto) 0.6 Lymph # (Auto) 1.6 [place] # (Auto) 0.4 Eos # (Auto) 0.2 Baso # (Auto) 0.0 Abs Immat Gran (auto) 0.01 Absolute Neuts (auto) 4.1 Absolute Nucleated RBC 0.000 Nucleated RBC % (auto) 0.0 Anion Gap 11 L Estim Creat Clear Calc 100.2 Estimated GFR > 60 Random Glucose 104 Calcium 8.8 Triglycerides 309 Cholesterol 195 LDL Cholesterol, Calc 95 HDL Cholesterol 39 COVID-19 (RANDAL) COVID-19 Clin Com Assessment and Plan (1) Headache: Status: Acute (2) Occipital stroke: Status: Acute Assessment and Plan: 50-year-old female with past medical history of hypertension presents to the hospital with a blood pressure of 239/100 as well as weakness numbness and tingling of her left side and visual changes, MRI shows acute infarct within the right occipital lobe in the right OPERATIONS FORESTER territory 1/acute infarct within the right occipital lobe in the right OPERATIONS FORESTER territory causing visual --needs BP control, statin, ASA. PT/OT following for rehab vs home # hypertensive emergency--this is probably part of underlying stroke, it has resolved. Blood pressure is now better, but should not be agresively controlled in setting of acute stroke. -Continue Lisinpril, HCTZ, and Norvasc #Headache likely related to stroke, Tyelenol, fiorocet or Oxycodone for headace DVT prophylaxis:? Lovenox Quality Stroke Does the patient have a stroke diagnosis?: No VTE Prior VTE?: No VTE Risk Level:: Medical - moderate - high VTE Device Contraindication: Treatment Not Indicated VTE Drug Contraindication: N/A - Med Ordered
--- NOTE | 2021-05-09 13:02 | PC.NURSE ---
Pt has been medicated throughout the morning for reported headache and noted hypertension. 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 MD was notified and pt brought to MRI by the stroke RN.
--- NOTE | 2021-05-09 14:06 | MHC.STROKE ---
Addendum entered by Nisa Garcia RN 05/15/21 16:16: I did a follow up call to [facility] in [place], I spoke with Freda the shipwright supervisor. She verified that the patient was on Lipitor 40 mg QD. The discharge medication list reflects this medication. Addendum entered by Nisa Garcia RN 05/11/21 15:01: I REVIEWED THE DISCHARGE MEDS AND DR LUIS ADDED THE ASPIRIN 81MG, I DID CALL [facility] AND SPOKE WITH THE NURSING TANGIBLE PERSONAL PROPERTY APPRAISER YUMI. I INFORMED HER OF THIS ADDITIONAL MEDICATION. THE CASE MANAGAER WILL FAX ORDER THE REVISED DISCHARGE ORDERS. Original Note: 05/08/21 1630 WALK-IN, C/O LUE WEAKNESS, AND NUMBNESS AROUND HER LEFT LIP. BP WAS ELEVATED 239/103. CT HEAD DONE. PASSED SWALLOW SCREEN AT 2120. 05/09/21 AT 1200 I MET WITH THE PATIENT USING THE FRONT DESK HOST TO PROVIDE STROKE EDUCATION. SHE C/O ABRAHAM AND RIGHT VISUAL FIELD DISTURBANCE. MY NIHSS = 3, I NOTIFIED DR GALICIA AND IT WAS DECIDED TO OBTAIN A MRI BRAIN. THE MRI IS + FOR RIGHT OCCIPITAL ISCHEMIC INFARCT. I DISCUSSED CASE WITH DR LUIS AND A CTA H/N, AN ECHO WILL BE ORDERED, REHAB, ASPIRIN, LIPID PANEL (DONE) STATIN, TRIGLYCERIDES ALSO ELEVATED. I DISCUSSED THIS WITH THE PATIENT. I REVIEWED THE STROKE EDUCATION BOOKLET, SHOWED HER A SCREEN SHOT OF THE MRI AND WHERE THE STROKE IS. I REVIEWED HER BP MEDICATIONS WITH HER AND SHE SAID SHE WAS TAKING HER MEDICATIONS, AND SHE TAKES HER BP AT HOME. I WILL CONTINUE TO FOLLOW.
[2021-05-09] MEDS: 0.9 % Sodium Chloride Flush 3 ML SYRINGE IVFLUSH ×2 (16:19)
--- NOTE | 2021-05-09 16:55 | PC.NURSE ---
P BP elevated 198/94 pulse 81,c/o dizziness coming and going,blurred vision more on a left I Dr. Hennessy notified of the above E will monitor
[2021-05-09] MEDS: Atorvastatin Calcium 40 MG TABLET PO (20:08)
[2021-05-09] MEDS: traZODone HCL 50 MG TABLET 150 MG PO (20:08)
--- NOTE | 2021-05-09 20:13 | PC.NURSE ---
Addendum entered by Bere Bonilla RN 05/09/21 22:22: patient was medicated for headache with Morphine IV,no headache at present,BP down 146/69,pulse 73 Original Note: P BP 198/[address] Hennessy aware E will monitor
[2021-05-09] MEDS: iohexoL 350 MG/ML 100 ML INFUS..BTL IV (20:38)
[2021-05-09] MEDS: Morphine Sulfate 2 MG/ML CARTRIDGE IVPUSH (21:02)
[2021-05-09] MEDS: Enoxaparin Sodium 40 MG/0.4 ML SYRINGE SUBCUT (22:20)
[2021-05-10] VITALS (8 sets, daily range): BP systolic 131–182; BP diastolic 60–86; PULSE 65–84; RESP 15–18; TEMP 36.5–37; O2SAT 95–99
[2021-05-10] MEDS: 0.9 % Sodium Chloride Flush 3 ML SYRINGE IVFLUSH ×4 (00:10→23:39)
[2021-05-10] MEDS: Morphine Sulfate 2 MG/ML CARTRIDGE IVPUSH (04:58)
[2021-05-10] MEDS: Aspirin 81 MG TAB.CHEW PO (09:05)
[2021-05-10] MEDS: amLODIPine Besylate 5 MG TABLET PO (09:05)
[2021-05-10] MEDS: hydroCHLOROthiazide 25 MG TABLET PO (09:05)
[2021-05-10] MEDS: lisinopriL 10 MG TABLET 30 MG PO (09:06)
--- NOTE | 2021-05-10 09:56 | P.PNIM_ITS ---
Subjective Subjective Date of Service: 05/10/21 Interval History: She is feeling better but still has isses with blurry vision and dizziness Review of Systems Gen: no fever eye--blury vision Resp: no sob, no cough CV: no chest, no RÍOS, no leg edema GI: No n/v, no abd pain Neuro: No confusion. has dizziness and headache Physical Exam Vital Signs: Vital Signs: Last Vital Signs Temp 97.9 F 05/10/21 07:28 Pulse 69 05/10/21 09:10 Resp 18 05/10/21 07:28 BP 143/73 H 05/10/21 09:10 Pulse Ox 95 05/10/21 09:10 Body Mass Index 28.3 Objective Data Active Medications Acetaminophen (Acetaminophen 325 Mg Tablet) 650 mg PO Q6H PRN PRN Reason: Pain, Mild (Pain Scale 1-3) Last Admin: 05/09/21 20:14 Dose: 650 mg Documented by: DIGNA Acetaminophen/Butalbital/Caffeine (Butalb/Acetamin/Caff 50/325/40 Tablet) 1 tab PO Q4H PRN PRN Reason: Headache Last Admin: 05/09/21 15:48 Dose: 1 tab Documented by: JOSH Amlodipine Besylate (Amlodipine Besylate 5 Mg Tablet) 5 mg PO DAILY [facility]; Protocol Last Admin: 05/10/21 09:05 Dose: 5 mg Documented by: IRMA Aspirin (Aspirin 81 Mg Tab.Chew) 81 mg PO DAILY [facility] Last Admin: 05/10/21 09:05 Dose: 81 mg Documented by: IRMA Atorvastatin Calcium (Atorvastatin Calcium 40 Mg Tablet) 40 mg PO BEDTIME [facility] Last Admin: 05/09/21 20:08 Dose: 40 mg Documented by: DIGNA Docusate Sodium (Docusate Sodium 100 Mg Capsule) 100 mg PO DAILY PRN PRN Reason: Constipation Enoxaparin Sodium (Enoxaparin Sodium 40 Mg/0.4 Ml Syringe) 40 mg SUBCUT Q24H [facility] Last Admin: 05/09/21 22:20 Dose: 40 mg Documented by: DIGNA Hydrochlorothiazide (Hydrochlorothiazide 25 Mg Tablet) 25 mg PO DAILY [facility]; Protocol Last Admin: 05/10/21 09:05 Dose: 25 mg Documented by: IRMA Lisinopril (Lisinopril 10 Mg Tablet) 30 mg PO DAILY [facility]; Protocol Last Admin: 05/10/21 09:06 Dose: 30 mg Documented by: IRMA Morphine Sulfate (Morphine Sulfate 2 Mg/Ml Cartridge) 2 mg IVPUSH Q4H PRN; Protocol PRN Reason: Pain, Severe (Pain Scale 7-10) Last Admin: 05/10/21 04:58 Dose: 2 mg Documented by: MARY ELLEN Ondansetron HCl (Ondansetron Hcl 4 Mg/2 Ml Vial) 4 mg IVPUSH Q8H PRN PRN Reason: Nausea and Vomiting Pharmacy Consult (Consult Rx Perform Med Rec) 1 each MISCELLANE ONCE PRN PRN Reason: Consult order Sodium Chloride (0.9 % Sodium Chloride Flush 3 Ml Syringe) 3 ml IVFLUSH QSHIFT [facility] Last Admin: 05/10/21 09:06 Dose: 3 ml Documented by: IRMA Trazodone HCl (Trazodone Hcl 50 Mg Tablet) 150 mg PO BEDTIME [facility] Last Admin: 05/09/21 20:08 Dose: 150 mg Documented by: DIGNA Labs CBC & Chem 7: 05/09/21 06:22 05/09/21 06:22 Labs: Laboratory Results - last 24 hr 05/08/21 05/09/21 18:35 06:22 Triglycerides Cancelled 309 Cholesterol Cancelled 195 LDL Cholesterol, Calc Cancelled 95 HDL Cholesterol Cancelled 39 Quality Stroke Does the patient have a stroke diagnosis?: No VTE Prior VTE?: No VTE Risk Level:: Medical - moderate - high VTE Device Contraindication: Treatment Not Indicated VTE Drug Contraindication: N/A - Med Ordered
--- NOTE | 2021-05-10 13:40 | CA_ITS ---
Transthoracic Echocardiogram Patient (Last, First, Middle): Michelle Yoon, Gender: Female Date of : 1970 Age: 50 Procedure Date: 05/10/2021 Procedure Type: Transthoracic Echocardiogram Location: S3E Height: 175.26 cm Weight: 87.09 kg BSA: 2.03 m2 Heart Rate: bpm BP: 140 / 65 mmHg Human Resources Operations Manager: DSG Referring MD: Alon Hennessy MD Symptoms: stroke Study Quality: Fair ECG Rhythm: Sinus Conclusions: - The left ventricular systolic function is normal. The visually estimated ejection fraction is between 65-70%. - No obvious valvular pathology seen on this study. - There is no evidence of interatrial shunt by agitated saline. Findings Left Ventricle Normal left ventricular cavity size. There is mildly increased left ventricular wall thickness. The left ventricular systolic function is normal. The visually estimated ejection fraction is between 65-70%. There is no evidence of regional wall motion abnormalities. E/E prime ratio is between 8 and 15 consistent with indeterminate filling pressures. Evidence suggests grade I (mild) diastolic dysfunction. Right Ventricle Normal right ventricular cavity size and systolic function. Atria Both atria are normal in size. There is no evidence of interatrial shunt by agitated saline. (rest and valsalva). Aortic Valve There is a normal trileaflet aortic valve. There is no aortic valve stenosis. There is no aortic valve regurgitation. Mitral Valve The mitral valve appears normal. There is trace mitral valve regurgitation. There is no mitral valve stenosis. Pulmonic Valve The pulmonic valve was not well visualized. Tricuspid Valve Normal tricuspid valve structure. There is trace tricuspid valve regurgitation. The pulmonary artery systolic pressure is normal. Great Vessels The aortic annulus, sinuses of valsalva, and asc aorta are normal in size. Venous The inferior vena cava is normal in size and collapses greater than 50% with inspiration. Pericardium/Pleural There is no evidence of pericardial effusion. Prior Study Comparison No prior study available for comparison. Recommendations, Care & Conclusions No obvious valvular pathology seen on this study. Measurements 2D Linear Measurements IVSd: 1.31 0.6-0.9/0.6-1.0 cm LVIDd: 3.98 3.9-5.3/4.2-5.9 cm LVIDd Index: 1.96 2.4-3.2/2.2-3.1 cm/m2 LVIDs: 2.66 2.0-3.6 cm LVPWd: 1.25 0.7-1.1 cm Ao Root: 3.00 2.1-3.5 cm LA Diam: 3.60 2.7-3.8/3.0-4.0 cm LAIDs Index: 1.77 1.5-2.3 cm/m2 LV Mass: 225.35 67-162/88-224 g LV Mass Index: 111.01 43-95/49-115 g/m2 LVOT Diam: 2.20 3.0+(-)1.3 cm 2D Systolic Function EF 4C: 60.90 >55% Mitral Valve MV Pk E: 0.75 MV PK A: 0.71 MV Decel Time: 232.00 E/A: 1.10 E'Lateral: 7.51 E'Medial: 5.22 E/E' Med: 14.30 E/E' Lat: 9.90 PHT: 68.00 MVA PHT: 3.24 Decel Metcalfe: 3.21 Aortic Valve AoV Pk Miguel: 1.25 AoV Pk Grad: 6.00 LVOT LVOT Pk Miguel: 0.93 LVOT Mn Miguel: 0.64 LVOT VTI: 0.20 LVOT Pk Grad: 3.00 LVOT Mn Grad: 2.00 LVOT Diam: 2.20 LVOT Area: 3.80 Diastolic Function MV Pk E: 0.75 MV Pk A: 0.71 E/A: 1.10 E'Medial: 5.22 E/E' Med: 14.30 E' Laterial: 7.51 E/E' Lat: 9.90 Right Ventricle TAPSE (mm): 2.04 Tricuspid Valve RA Press: 3.00 Great Vessels Aorta Ao Root-2D: 3.00 2.0-3.7 cm Updated in Other Vendor System with Status of Final Abdias Santiago MD electronically signed on 05/10/2021 4:08:02 PM with status of Final
--- NOTE | 2021-05-10 14:45 | MHC.CM.PN ---
PATIENT AGREEABLE TO REFERRALS TO ALL 3 LOCAL ACUTE REHAB FACILITIES, NOW PLACED. PATIENT IS AWARE THAT ALL THREE ARE OFFERING. SHE DOES PREFER TO DC HOME WITH SERVICES BUT IS OPEN TO SPEAKING WITH DOCTOR TOMORROW. SHE IS CURRENTLY ATTEMPTING TO HAVE HER NEIGHBOR LOOK AFTER HER 20-YEAR-OLD DISABLED DAUGHTER IN THE MEANTIME. HER PREFERENCE FOR FACILITY IS [facility]. FACILITY MADE AWARE AND IS ATTEMPTING AUTH NOW
[2021-05-10] MEDS: Butalb/Acetamin/Caff 50/325/40 TABLET 1 TAB PO (15:24)
[2021-05-10] MEDS: traZODone HCL 50 MG TABLET 150 MG PO (21:31)
[2021-05-10] MEDS: Atorvastatin Calcium 40 MG TABLET PO (21:31)
[2021-05-10] MEDS: Enoxaparin Sodium 40 MG/0.4 ML SYRINGE SUBCUT (23:37)
[2021-05-11 03:07] VITALS: BP 138/71; PULSE 74; RESP 16; TEMP 36.9; O2SAT 96
[2021-05-11] MEDS: Butalb/Acetamin/Caff 50/325/40 TABLET 1 TAB PO (03:22)
[2021-05-11 08:00] VITALS: BP 157/80; PULSE 69; RESP 18; TEMP 36.9; O2SAT 96
[2021-05-11] MEDS: Aspirin 81 MG TAB.CHEW PO (08:27)
[2021-05-11] MEDS: hydroCHLOROthiazide 25 MG TABLET PO (08:28)
[2021-05-11] MEDS: lisinopriL 10 MG TABLET 30 MG PO (08:28)
[2021-05-11] MEDS: amLODIPine Besylate 5 MG TABLET PO (08:28)
[2021-05-11] MEDS: 0.9 % Sodium Chloride Flush 3 ML SYRINGE IVFLUSH (08:28)
--- NOTE | 2021-05-11 09:29 | MHC.CM.PN ---
[employer] VACCINE SERIES CARD UPLOADED INTO [employer]
[2021-05-11 09:32] VITALS: BP 157/80; PULSE 69; O2SAT 96
[2021-05-11] MEDS: lisinopriL 10 MG TABLET PO (10:01)
[2021-05-11 10:17] LABS: Anion Gap 15 (12-20); Blood Urea Nitrogen 16 mg/dL (9-16); Calcium 9.4 mg/dL (8.4-10.2); Carbon Dioxide 27 mmol/L (22-29); Chloride 101 mmol/L (96-108); Creatinine Clr Calc Pharmacy 82.5; Estimated Glomerular Filt Rate > 60; Glucose Random 116 mg/dL (60-115); Potassium 4.3 mmol/L (3.3-5.1); Sodium 139 mmol/L (135-145)
--- NOTE | 2021-05-11 10:56 | P.PNIM_ITS ---
Subjective Subjective Date of Service: 05/11/21 Interval History: Seen in f/u for acute stroke causing blury vision, some weaknes, headache. Headache is better, blury vision persists Review of Systems no hedache blury vision Physical Exam Vital Signs: Vital Signs: Last Vital Signs Temp 98.4 F 05/11/21 08:00 Pulse 69 05/11/21 09:32 Resp 18 05/11/21 08:00 BP 157/80 H 05/11/21 09:32 Pulse Ox 96 05/11/21 09:32 Body Mass Index 28.3 General: AO X 3, no acute distress Resp: CTA bilateral CVS: S1,S2,RRR GI: +BS, NT, no distention Skin: No rash Neuro: motor grossly intact Psych: appropriate affect Objective Data Active Medications Acetaminophen (Acetaminophen 325 Mg Tablet) 650 mg PO Q6H PRN PRN Reason: Pain, Mild (Pain Scale 1-3) Last Admin: 05/09/21 20:14 Dose: 650 mg Documented by: DIGNA Acetaminophen/Butalbital/Caffeine (Butalb/Acetamin/Caff 50/325/40 Tablet) 1 tab PO Q4H PRN PRN Reason: Headache Last Admin: 05/11/21 03:22 Dose: 1 tab Documented by: SASHA Amlodipine Besylate (Amlodipine Besylate 5 Mg Tablet) 5 mg PO DAILY [facility]; Protocol Last Admin: 05/11/21 08:28 Dose: 5 mg Documented by: IRMA Aspirin (Aspirin 81 Mg Tab.Chew) 81 mg PO DAILY [facility] Last Admin: 05/11/21 08:27 Dose: 81 mg Documented by: IRMA Atorvastatin Calcium (Atorvastatin Calcium 40 Mg Tablet) 40 mg PO BEDTIME [facility] Last Admin: 05/10/21 21:31 Dose: 40 mg Documented by: SASHA Docusate Sodium (Docusate Sodium 100 Mg Capsule) 100 mg PO DAILY PRN PRN Reason: Constipation Enoxaparin Sodium (Enoxaparin Sodium 40 Mg/0.4 Ml Syringe) 40 mg SUBCUT Q24H [facility] Last Admin: 05/10/21 23:37 Dose: 40 mg Documented by: SASHA Hydrochlorothiazide (Hydrochlorothiazide 25 Mg Tablet) 25 mg PO DAILY [facility]; Protocol Last Admin: 05/11/21 08:28 Dose: 25 mg Documented by: IRMA Lisinopril (Lisinopril 40 Mg Tablet) 40 mg PO DAILY [facility]; Protocol Morphine Sulfate (Morphine Sulfate 2 Mg/Ml Cartridge) 2 mg IVPUSH Q4H PRN; Protocol PRN Reason: Pain, Severe (Pain Scale 7-10) Last Admin: 05/10/21 04:58 Dose: 2 mg Documented by: MARY ELLEN Ondansetron HCl (Ondansetron Hcl 4 Mg/2 Ml Vial) 4 mg IVPUSH Q8H PRN PRN Reason: Nausea and Vomiting Pharmacy Consult (Consult Rx Perform Med Rec) 1 each MISCELLANE ONCE PRN PRN Reason: Consult order Sodium Chloride (0.9 % Sodium Chloride Flush 3 Ml Syringe) 3 ml IVFLUSH QSHIFT [facility] Last Admin: 05/11/21 08:28 Dose: 3 ml Documented by: IRMA Trazodone HCl (Trazodone Hcl 50 Mg Tablet) 150 mg PO BEDTIME [facility] Last Admin: 05/10/21 21:31 Dose: 150 mg Documented by: SASHA Labs CBC & Chem 7: 05/09/21 06:22 05/11/21 09:47 Labs: Laboratory Results - last 24 hr 05/11/21 09:47 Anion Gap 15 Estim Creat Clear Calc 82.5 Estimated GFR > 60 Random Glucose 116 H Calcium 9.4 D Assessment and Plan (1) Headache: Status: Acute (2) Occipital stroke: Status: Acute Assessment and Plan: 50-year-old female with past medical history of hypertension presents to the hospital with a blood pressure of 239/100 as well as weakness numbness and tingling of her left side and visual changes, MRI shows acute infarct within the right occipital lobe in the right SQUEEGEE TENDER territory 1/acute infarct within the right occipital lobe in the right SQUEEGEE TENDER territory causing visual --needs BP control, statin, ASA. PT/OT recommend acute inpatient rehab, she is agreable # hypertensive emergency--this is probably part of underlying stroke, increase Lisinopril, continue Norvasc, and HCTZ #Headache likely related to stroke, Tyelenol, fiorocet or Oxycodone for headace DVT prophylaxis:? Lovenox Awaiting rehab bed Quality Stroke Does the patient have a stroke diagnosis?: No VTE Prior VTE?: No VTE Risk Level:: Medical - moderate - high VTE Device Contraindication: Treatment Not Indicated VTE Drug Contraindication: N/A - Med Ordered
[2021-05-11 11:55] VITALS: BP 167/87; PULSE 75; RESP 20; TEMP 37.1; O2SAT 97
--- NOTE | 2021-05-11 15:09 | MHC.CM.PN ---
POST DISCHARGE NOTE. FINALIZED MEDICATIONS FAXED TO [facility] @ [phone]
--- NOTE | 2021-05-11 16:06 | P.DS_ITS ---
DS: Providers Provider Date of Service: 05/11/21 Date of admission: 05/08/21 21:35 Primary care physician: Ani Bright MD Consults: 05/08/21 21:31 Consult to Neurology Routine Consulting Provider: [facility] [place] [facility] Reason for consultation: left sided weakness post hypertensive emergency Has provider been notified: No DS: Diagnosis Discharge Diagnosis (1) TIA (transient ischemic attack): (2) Migraine: Status: Acute DS: Summary Hospital Course Hospital Course: Chief Complaint: headache, elevated bp 50-year-old female with past medical history of CVA, hypertension on 10 mg of li sinopril, history of depression presents to the hospital with acute complaints of elevated blood pressure as well as headache.? Patient reports that she checked her blood pressure at home was in the 200/100s, she is having a significant headache therefore not really forthcoming with much information.? She reports that her blood pressure is always this high, she is on lisinopril and reports compliance.? Patient is alsocomplaining of left sided weakness numbness and tingling as well as lower lip tingling.? The headache is diffuse, associated with blurred vision in the left eye that has now improved. Denies having any chest pain, palpitations, abdominal pain nausea or vomiting, no diarrhea constipation, urinary symptoms and no lower extremity edema. On arrival today the patient found to have blood pressure of 239/103, received a morphine p.o. with improvement of her blood pressure to 188/73, Labs unremarkable, EKG shows normal sinus rhythm Head CT done shows no acute intracranial pathology Patient will be admitted for further management Hospital course: 50-year-old female with past medical history of hypertension presents to the hospital with a blood pressure of 239/100 as well as weakness numbness and tingling of her left side and visual changes, initial head CT did not show acute stroke, yet MRI later showed?acute infarct within the right occipital lobe in the right PRODUCT GRADER territory which corespond to her visual impairment, mainly blurry vision and headache. She was evaluated by Neurology with recommendation BP, and lipid managment and rehab. Further work up included echocardiogram showing no intracardiac clot, there was no AFIB on cardiac monior, heada neck CTA confirmed occipital lobe CVA. Patient's medical management consisted of treatment of extremely high blood pressure, ASA, and statin, She was follwed by rehab service (PT and OT) and was recommended for acute inpatient rehab which she was agreable to #HTN-it appears that she has not been compliant with meds leading to extremely high BP and ultimately stroke--she was restarted on Lisinopril, HCTZ and Norvasc was added with improvement and may need further adjustment on outpatient basis #Headache likely related? to stroke, treated with Tyelenol, fiorocet and Oxycodone PRN #HLD--TG 309, LDL 95, Chol 195, HDL 39--Lipitor Time Spent with Patient Time attestation: Total time spent providing and/or coordinating discharge services: Discharge coordination time: Greater than 30 minutes Quality: Stroke Does the patient have a stroke diagnosis?: No Physical Exam Vital Signs: Vital Signs: Last Vital Signs Temp 98.7 F 05/11/21 11:55 Pulse 75 05/11/21 11:55 Resp 20 05/11/21 11:55 BP 167/87 H 05/11/21 11:55 Pulse Ox 97 05/11/21 11:55 Body Mass Index 28.3 Discharge Plan Discharge Anticipated Discharge Date/Time: 05/11/21 09:27 Patient Disposition: Xfer Acute Care Hospital Discharge Diagnosis: Uncontrolled HTN, miagaine headache Referrals: Ani Bright MD [Primary Care Provider] - 1 Week Discharge Medications: New hydrochlorothiazide 25 mg tablet 25 mg PO QAM Qty: 30 RF: 0 amlodipine [Norvasc] 5 mg tablet 5 mg PO DAILY Qty: 30 RF: 0 lgaekcevlt-qyjbxvbhpilti-epbk [Fioricet] 50-300-40 mg capsule 1 cap PO Q8H PRN (Reason: headache) Qty: 14 RF: 0 lisinopril 40 mg tablet 40 mg PO DAILY Qty: 30 RF: 0 aspirin 81 mg capsule 81 mg PO DAILY Qty: 60 RF: 0 atorvastatin [Lipitor] 40 mg tablet 40 mg PO BEDTIME Qty: 30 RF: 0 Continued ketotifen fumarate 0.025 % (0.035 %) drops RF: 0 hydroxyzine pamoate 50 mg capsule 1 cap PO DAILY PRN (Reason: Anxiety) RF: 0 trazodone 150 mg tablet 1 tab PO BEDTIME RF: 0 Discontinued lisinopril-hydrochlorothiazide 20-25 mg tablet 1 tab PO DAILY RF: 0 Discharge Orders: Discharge Order (Routine); Ordered 05/11/21 Ordered By: Alon Hennessy Diet: advance to usual diet Activity on Discharge: As tolerated Stand Alone Forms: Patient Portal Discharge page Care Plan Goals: Blood pressure control Health Concerns: Scbraydon simons, uncontrolled HTN Plan of Treatment: Take bloodpre pressure medication as directed and take Fiorocet as needed for headace Take HCTZ, Lisinopril, Norvasc as directed for blood pressure control Assessment: as above Discharge Date/Time: 05/11/21 14:21
== END 2021-05-11 14:21 | disposition short-term general hospital (02) | DRG 45 ==
LOC: HO.ED 20:36 → HO.EDOVER 23:47 → HO.S3 05-09 15:29
PROVIDERS: Admitting Provider Internal Medicine; Emergency Provider Emergency Medicine; PCP Internal Medicine; Visit Provider Internal Medicine
DX: I63.531 Cerebral infarction due to unspecified occlusion or stenosis of right posterior cerebral artery (principal); G81.94 Hemiplegia, unspecified affecting left nondominant side; I10 Essential (primary) hypertension; H53.8 Other visual disturbances; R20.9 Unspecified disturbances of skin sensation; I16.1 Hypertensive emergency; R29.700 NIHSS score 0; Z20.822 Contact with and (suspected) exposure to COVID-19; Z86.73 Personal history of transient ischemic attack (TIA), and cerebral infarction without residual deficits; Z79.899 Other long term (current) drug therapy
CPT/HCPCS: 36415; 70450; 70496; 70498; 70551; 71045; 80048; 80061; 85025; 87635; 93005; 93306; 97110; 97116; 97162; 97166; 97530; 97535; 99285; J1650; J2270; Q9967

== ENCOUNTER 2021-06-11 13:24 | Outpatient (REF) | payer MEDICAID, SELFPAY ==
--- NOTE | ~2021-06-11 | US_ITS ---
EXAMINATION: US VENOUS ULTRASOUND WITH DOPPLER LOWER EXTREMITY, LEFT CLINICAL INFORMATION: Lower extremity edema. Assess for occult DVT. COMPARISON: None TECHNIQUE: Ultrasound of the deep veins is performed from the hip to the calf with compression sonography and color and pulse Doppler assessment. Spectral analysis with color-flow imaging is performed. FINDINGS: There is normal venous compression and respiratory variation and augmented flow. The visualized common femoral vein, superficial femoral vein, profunda femoral vein, popliteal vein, and the trifurcation region shows no evidence of deep venous thrombosis. No popliteal fossa cyst demonstrated. US/US venous duplex LE LT IMPRESSION: No DVT demonstrated in the left lower extremity.
== END 2021-06-11 13:25 | disposition home or self-care (01) ==
LOC: HO.US 13:24
PROVIDERS: PCP Internal Medicine; Visit Provider Internal Medicine
DX: R60.0 Localized edema (principal)
CPT/HCPCS: 93971

== ENCOUNTER 2021-06-18 16:50 | Outpatient (REF) | payer MEDICAID, SELFPAY ==
[2021-06-18 18:32] LABS: Total Protein Urine Random < 7 mg/dL (<12)
[2021-06-18 18:38] LABS: Alanine Aminotransferase 18 U/L (0-31); Albumin Level 4.5 g/dL (3.5-5.0); Alkaline Phosphatase 93 U/L (39-117); Anion Gap 14 (12-20); Aspartate Amino Transferase 12 U/L (5-31); Bilirubin Total 0.3 mg/dL (0.0-1.0); Blood Urea Nitrogen 17 mg/dL (9-16); Calcium 9.9 mg/dL (8.4-10.2); Carbon Dioxide 29 mmol/L (22-29); Chloride 102 mmol/L (96-108); Cholesterol 198 mg/dL; Estimated Glomerular Filt Rate > 60; Glucose Random 81 mg/dL (60-115); HDL Cholesterol 44 mg/dL; LDL Cholesterol Calculated 109 mg/dl; Sodium 141 mmol/L (135-145); Total Protein 7.5 g/dL (6.5-8.0); Triglycerides 226 mg/dL
[2021-06-18 18:58] LABS: Thyroid Stimulating Hormone 1.49 uIU/mL (0.32-4.0)
== END 2021-06-18 16:51 | disposition home or self-care (01) ==
LOC: HO.LAB 16:50
PROVIDERS: PCP Internal Medicine; Visit Provider Internal Medicine
DX: R60.0 Localized edema (principal); E78.00 Pure hypercholesterolemia, unspecified; I10 Essential (primary) hypertension
CPT/HCPCS: 36415; 80053; 80061; 84156; 84443

== ENCOUNTER 2021-06-25 11:07 | Emergency (ER) | payer MEDICAID, SELFPAY ==
--- NOTE | ~2021-06-25 | US_ITS ---
EXAMINATION: US VENOUS ULTRASOUND WITH DOPPLER LOWER EXTREMITY, BILATERAL CLINICAL INFORMATION: Bilateral lower extremity swelling and erythema COMPARISON: None TECHNIQUE: Ultrasound of the deep veins is performed from the hip to the calf with compression sonography and color and pulse Doppler assessment. Spectral analysis with color-flow imaging is performed. FINDINGS: RIGHT: There is normal venous compression and respiratory variation and augmented flow. The visualized common femoral vein, superficial femoral vein, profunda femoral vein, popliteal vein, and the trifurcation region shows no evidence of deep venous thrombosis. There is no significant popliteal fossa cyst. LEFT: There is normal venous compression and respiratory variation and augmented flow. The visualized common femoral vein, superficial femoral vein, profunda femoral vein, popliteal vein, and the trifurcation region shows no evidence of deep venous thrombosis. There is no significant popliteal fossa cyst. A lymph node with a large fatty tye, not pathologic, is noted in the left groin. If the patient's symptoms persist, followup ultrasound in 5 days 7 days might be of value to exclude proximal propagation from a non-visualized calf vein. US/US venous duplex LE IMPRESSION: No DVT demonstrated in either lower extremity.
[2021-06-25 11:49] VITALS: BP 140/73; PULSE 86; RESP 18; TEMP 36.5; O2SAT 100; BMI 30.7
--- NOTE | 2021-06-25 15:08 | ED.GENADULT ---
HPI - General Adult General Chief complaint: General Medical Stated complaint: Cellulitis? Time Seen by Provider: 06/25/21 15:08 Source: patient Mode of arrival: ambulatory Limitations: no limitations History of Present Illness HPI narrative: patient with 3 weeks of swelling, now with erythema to both legs. Onset (ago): week(s) Location: left, right and lower extremity Severity: moderate Quality: burning Pain Consistency: constant Associated symptoms: rash Related Data Home Medications Medication Instructions Recorded Confirmed hydroxyzine pamoate 50 mg capsule 1 cap PO DAILY PRN 05/08/21 05/08/21 ketotifen fumarate 0.025 % (0.035 drp 05/08/21 %) eye drops trazodone 150 mg tablet 1 tab PO BEDTIME 05/08/21 05/08/21 Previous Rx's Medication Instructions Recorded amlodipine 5 mg tablet (Norvasc) 5 mg PO DAILY #30 tab 05/09/21 uvugfcndpl-gnvxjxdixirfn-bzdnbdqi 1 cap PO Q8H PRN #14 cap 05/09/21 50 mg-300 mg-40 mg capsule (Fioricet) hydrochlorothiazide 25 mg tablet 25 mg PO QAM #30 tab 05/09/21 aspirin 81 mg capsule 81 mg PO DAILY #60 cap 05/11/21 lisinopril 40 mg tablet 40 mg PO DAILY #30 tab 05/11/21 atorvastatin 40 mg tablet (Lipitor) 40 mg PO BEDTIME #30 tab 05/15/21 cephalexin 500 mg capsule 500 mg PO Q6H 10 Days #40 cap 06/25/21 hydrochlorothiazide 50 mg tablet 50 mg PO DAILY #20 tab 06/25/21 Allergies Allergy/AdvReac Type Severity Reaction Status Date / Time No Known Allergies Allergy Verified 06/25/21 11:49 [No Known Allergies*] Review of Systems Constitutional: Constitutional: Reports no additional constitutional complaints Eyes: Eyes: Reports no additional eye complaints ENT: Denies dizziness Cardiovascular: Cardiovascular: Reports no additional cardiovascular complaints Respiratory: Respiratory: Reports as per HPI Gastrointestinal: Gastrointestinal: Reports no additional gastrointestinal complaints Genitourinary: Genitourinary: Reports no additional female genitourinary complaints Musculoskeletal: Musculoskeletal: Reports no additional musculoskeletal complaints Integumentary/Breasts: Skin/Breast: Denies rash Neurologic: Reports system reviewed and no additional complaints, except as documented, Denies dizziness and Denies Sensory deficit (Neuro) Psychiatric: Psychiatric: Denies anxiety [facility] Past Medical History Medical History Abnormal Pap smear of cervix CVA (cerebral vascular accident) Depression FH: breast cancer in first degree relative HTN (hypertension) Hypertension Ovarian cyst TIA (transient ischemic attack) Surgical History H/O prior ablation treatment History of removal of ovarian cyst Hx of tubal ligation Family History Family History Paternal Aunt Breast cancer Sister Breast cancer, Onset Age: 46 Social History Social History Household Members: Family Housing: Apartment Do you presently have visiting nurse or other home services: No Alcohol intake: unknown Patient Tobacco Use Status: Never used Tobacco Use of substances other than those prescribed or required for medical reasons: No Advance Directives: No Advance Directives Information Provided: No Patient : No Gender identity: Female Physical Exam Vital Signs: Vital Signs: Last Vital Signs Temp 98.3 F 06/25/21 16:03 Pulse 87 06/25/21 16:03 Resp 16 06/25/21 16:03 BP 144/74 H 06/25/21 16:03 Pulse Ox 98 06/25/21 16:03 BMI result Body Mass Index 30.7 Const: General: healthy appearing Nutritional Appearance: average body habitus Orientation/consciousness: oriented to person and patient oriented x3 Limitations: no limitations HENMT: Head: Yes normal to inspection Ears: external ears normal General nose exam: Normal external nose present Mouth: Normal oral and palatal mucosa present and oropharynx normal Throat: Yes posterior oropharynx normal Eyes: General: appearance normal, both eyes and all related structures Neck: Other: supple Neck: Yes normal visual inspection Chest: Chest palpation & inspection: normal inspection of the chest Resp: Auscultation: clear to auscultation bilaterally Cardio: Jugular venous distension: no JVD Rate: regular rate Rhythm: regular rhythm Heart sounds: S1 normal heart sound present and S2 normal heart sound present GI: Inspection: Yes normal to inspection Palpation (GI): Soft to palpation, nontender and No hepatosplenomegaly present Auscultation: normal bowel sounds : General: Yes no CVA tenderness Back/Spine/Pelvis: Back: no CVA tenderness Skin: Other: bilateral erythema to both legs Neuro: General: oriented to person and patient oriented x3 Cranial nerves: Yes CN's II-XII intact bilaterally Motor exam (neuro): 5/5 motor strength present throughout Sensory Exam: No Sensory deficit (Neuro) Extrem: Other: 3+ edema bilaterally Psych: Appearance: grossly normal Course Reevaluation(s) Reevaluation #1: patient with worsening edema with now what appears to be bilateral cellulitis, will start keflex and increase diuretics and dc home Time: 17:48 Medical Decision Making Lab Data Result diagrams: 06/25/21 16:00 06/25/21 16:00 Labs: Lab Results 06/25/21 06/25/21 06/25/21 Range/Units 16:00 16:00 16:00 WBC 7.1 (4.8-10.8) X10*3/uL RBC 4.67 (4.20-5.50) X10*6/uL Hgb 12.6 (12.0-16.0) g/dl Hct 38.5 (37.0-47.0) % MCV 82.4 (80.0-98.0) fL MCH 27.0 (27.0-33.0) pg MCHC 32.7 (31.0-35.0) g/dl RDW 14.5 (11.0-16.0) % Plt Count 336 (160-400) X10*3/uL MPV 10.1 (9.4-12.3) fL Immature Gran % (Auto) 0.4 (0.0-0.4) % Neut % (Auto) 65.2 (45-73) % Lymph % (Auto) 25.1 (20-40) % Divide % (Auto) 7.1 (2-11) % Eos % (Auto) 1.8 (0-4) % Baso % (Auto) 0.4 (0-2) % Lymph # (Auto) 1.8 (1.2-4.9) X10*3/uL Divide # (Auto) 0.5 (0.1-1.2) X10*3/uL Eos # (Auto) 0.1 (0.0-0.4) X10*3/uL Baso # (Auto) 0.0 (0.0-0.2) X10*3/uL Abs Immat Gran (auto) 0.03 (0.00-0.03) X10*3/uL Absolute Neuts (auto) 4.6 (2.0-8.3) x10*3/uL Absolute Nucleated RBC 0.000 (0.0-0.012) X10*3/uL Nucleated RBC % (auto) 0.0 (0.0-0.2) /100WBC ESR 23 H (0-20) MM/HR Sodium 142 (135-145) mmol/L Potassium 4.1 (3.3-5.1) mmol/L Chloride 105 (96-108) mmol/L Carbon Dioxide 28 (22-29) mmol/L Anion Gap 13 (12-20) BUN 14 (9-16) mg/dL Creatinine 0.89 (0.5-1.4) mg/dL Estim Creat Clear Calc 83.6 Estimated GFR > 60 Random Glucose 122 H (60-115) mg/dL Calcium 9.7 (8.4-10.2) mg/dL Total Bilirubin 0.4 (0.0-1.0) mg/dL Direct Bilirubin < 0.2 (0.0-0.5) mg/dL AST 17 D (5-31) U/L ALT 26 (0-31) U/L Alkaline Phosphatase 90 (39-117) U/L Total Protein 7.1 (6.5-8.0) g/dL Albumin 4.2 (3.5-5.0) g/dL Urine Color Urine Appearance Urine pH (5.0-8.0) Ur Specific [place] (1.005-1.025) Urine Protein (NEG-TRACE) MG/DL Urine Glucose (UA) (NEG) MG/DL Urine Ketones (NEG) MG/DL Urine Blood (NEG) Urine Nitrite (NEG) Ur Leukocyte Esterase (NEG) 06/25/21 Range/Units 16:09 WBC (4.8-10.8) X10*3/uL RBC (4.20-5.50) X10*6/uL Hgb (12.0-16.0) g/dl Hct (37.0-47.0) % MCV (80.0-98.0) fL MCH (27.0-33.0) pg MCHC (31.0-35.0) g/dl RDW (11.0-16.0) % Plt Count (160-400) X10*3/uL MPV (9.4-12.3) fL Immature Gran % (Auto) (0.0-0.4) % Neut % (Auto) (45-73) % Lymph % (Auto) (20-40) % Divide % (Auto) (2-11) % Eos % (Auto) (0-4) % Baso % (Auto) (0-2) % Lymph # (Auto) (1.2-4.9) X10*3/uL Divide # (Auto) (0.1-1.2) X10*3/uL Eos # (Auto) (0.0-0.4) X10*3/uL Baso # (Auto) (0.0-0.2) X10*3/uL Abs Immat Gran (auto) (0.00-0.03) X10*3/uL Absolute Neuts (auto) (2.0-8.3) x10*3/uL Absolute Nucleated RBC (0.0-0.012) X10*3/uL Nucleated RBC % (auto) (0.0-0.2) /100WBC ESR (0-20) MM/HR Sodium (135-145) mmol/L Potassium (3.3-5.1) mmol/L Chloride (96-108) mmol/L Carbon Dioxide (22-29) mmol/L Anion Gap (12-20) BUN (9-16) mg/dL Creatinine (0.5-1.4) mg/dL Estim Creat Clear Calc Estimated GFR Random Glucose (60-115) mg/dL Calcium (8.4-10.2) mg/dL Total Bilirubin (0.0-1.0) mg/dL Direct Bilirubin (0.0-0.5) mg/dL AST (5-31) U/L ALT (0-31) U/L Alkaline Phosphatase (39-117) U/L Total Protein (6.5-8.0) g/dL Albumin (3.5-5.0) g/dL Urine Color YELLOW Urine Appearance CLEAR Urine pH 7.0 (5.0-8.0) Ur Specific [place] 1.010 (1.005-1.025) Urine Protein NEG (NEG-TRACE) MG/DL Urine Glucose (UA) NEG (NEG) MG/DL Urine Ketones NEG (NEG) MG/DL Urine Blood NEG (NEG) Urine Nitrite NEG (NEG) Ur Leukocyte Esterase NEG (NEG) Imaging Data bilateral duplex: Radiologist's impression: IMPRESSION: No DVT demonstrated in either lower extremity. Discharge Plan Discharge Clinical Impression: Cellulitis Qualifiers: Site of cellulitis: extremity Site of cellulitis of extremity: lower extremity Laterality: unspecified laterality Qualified Code(s): L03.119 - Cellulitis of unspecified part of limb Edema Qualifiers: Edema type: localized Qualified Code(s): R60.0 - Localized edema Patient Disposition: Home, Self-Care Instructions: Cellulitis (ED), Edema (ED) Prescriptions: New cephalexin 500 mg capsule 500 mg PO Q6H 10 Days Qty: 40 RF: 0 hydrochlorothiazide 50 mg tablet 50 mg PO DAILY Qty: 20 RF: 0 No Action ketotifen fumarate 0.025 % (0.035 %) drops RF: 0 hydroxyzine pamoate 50 mg capsule 1 cap PO DAILY PRN (Reason: Anxiety) RF: 0 trazodone 150 mg tablet 1 tab PO BEDTIME RF: 0 hydrochlorothiazide 25 mg tablet 25 mg PO QAM Qty: 30 RF: 0 amlodipine [Norvasc] 5 mg tablet 5 mg PO DAILY Qty: 30 RF: 0 xdrvlttolh-zjutfedxrfdvb-iorb [Fioricet] 50-300-40 mg capsule 1 cap PO Q8H PRN (Reason: headache) Qty: 14 RF: 0 lisinopril 40 mg tablet 40 mg PO DAILY Qty: 30 RF: 0 aspirin 81 mg capsule 81 mg PO DAILY Qty: 60 RF: 0 atorvastatin [Lipitor] 40 mg tablet 40 mg PO BEDTIME Qty: 30 RF: 0 Referrals: Ani Bright MD [Primary Care Provider] - 5 days
[2021-06-25 16:03] VITALS: BP 144/74; PULSE 87; RESP 16; TEMP 36.8; O2SAT 98
[2021-06-25 16:06] LABS: MANUAL DIFF FLAG NO
[2021-06-25 16:11] LABS: Basophils Percent Auto 0.4 % (0-2); Eosinophils Absolute Auto 0.1 X10*3/uL (0.0-0.4); Eosinophils Percent Auto 1.8 % (0-4); Hematocrit 38.5 % (37.0-47.0); Hemoglobin 12.6 g/dl (12.0-16.0); Imm Gran Abs Auto 0.03 X10*3/uL (0.00-0.03); Imm Gran Pct Auto 0.4 % (0.0-0.4); Lymphocytes Absolute Auto 1.8 X10*3/uL (1.2-4.9); Lymphocytes Percent Auto 25.1 % (20-40); Mean Corpuscular HGB Conc 32.7 g/dl (31.0-35.0); Mean Corpuscular Volume 82.4 fL (80.0-98.0); Mean Platelet Volume 10.1 fL (9.4-12.3); Monocytes Absolute Auto 0.5 X10*3/uL (0.1-1.2); Monocytes Percent Auto 7.1 % (2-11); Neutrophils Absolute Auto 4.6 x10*3/uL (2.0-8.3); Neutrophils Percent Auto 65.2 % (45-73); Platelet Count 336 X10*3/uL (160-400); Red Blood Count 4.67 X10*6/uL (4.20-5.50); Red Cell Distribution Width 14.5 % (11.0-16.0); White Blood Count 7.1 X10*3/uL (4.8-10.8)
[2021-06-25 16:20] LABS: Appearance Urine CLEAR; Color Urine YELLOW; Glucose Urine UA NEG (NEG); Leukocyte Esterase Urine NEG (NEG); Nitrite Urine NEG (NEG); Urine Blood NEG (NEG); Urine Ketones NEG (NEG); Urine Protein NEG (NEG-TRACE)
[2021-06-25 16:27] LABS: Alanine Aminotransferase 26 U/L (0-31); Albumin Level 4.2 g/dL (3.5-5.0); Alkaline Phosphatase 90 U/L (39-117); Anion Gap 13 (12-20); Aspartate Amino Transferase 17 U/L (5-31); Bilirubin Direct < 0.2 mg/dL (0.0-0.5); Bilirubin Total 0.4 mg/dL (0.0-1.0); Blood Urea Nitrogen 14 mg/dL (9-16); Calcium 9.7 mg/dL (8.4-10.2); Carbon Dioxide 28 mmol/L (22-29); Chloride 105 mmol/L (96-108); Creatinine Clr Calc Pharmacy 83.6; Estimated Glomerular Filt Rate > 60; Glucose Random 122 mg/dL (60-115); Potassium 4.1 mmol/L (3.3-5.1); Sodium 142 mmol/L (135-145); Total Protein 7.1 g/dL (6.5-8.0)
[2021-06-25 17:10] LABS: Erythrocyte Sedimentation Rate 23 MM/HR (0-20)
[2021-06-25] MEDS: cephALEXin 500 MG CAPSULE PO (18:10)
== END 2021-06-25 18:14 | disposition home or self-care (01) ==
PROVIDERS: Emergency Provider Emergency Medicine; PCP Internal Medicine
DX: L03.116 Cellulitis of left lower limb (principal); L03.115 Cellulitis of right lower limb; R60.0 Localized edema; R21 Rash and other nonspecific skin eruption; R20.8 Other disturbances of skin sensation; I10 Essential (primary) hypertension; Z86.73 Personal history of transient ischemic attack (TIA), and cerebral infarction without residual deficits
CPT/HCPCS: 36415; 80048; 80076; 81003; 85025; 85652; 93970; 99284

== ENCOUNTER 2022-03-22 17:30 | Emergency (ER) | payer OTHER, SELFPAY ==
[2022-03-22 17:39] VITALS: BP 206/93; PULSE 88; RESP 16; TEMP 36.2; O2SAT 98; BMI 31.9
[2022-03-22] MEDS: Ibuprofen 600 MG TABLET PO (17:44)
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
[2022-03-22] MEDS: Cyclobenzaprine HCl 5 MG TABLET PO (20:18)
[2022-03-22] MEDS: Ketorolac Tromethamine 15 MG/ML VIAL IM (20:18)
== END 2022-03-22 20:28 | disposition home or self-care (01) ==
PROVIDERS: Emergency Provider Student in an Organized Health Care Education/Training Program; PCP Internal Medicine
DX: S49.92XA Unspecified injury of left shoulder and upper arm, initial encounter (principal); X58.XXXA Exposure to other specified factors, initial encounter; Y93.9 Activity, unspecified; Y92.410 Unspecified street and highway as the place of occurrence of the external cause; Y99.9 Unspecified external cause status; Z79.899 Other long term (current) drug therapy
CPT/HCPCS: 96372; 99283; 99284; J1885

== ENCOUNTER 2022-04-01 09:24 | Outpatient (REF) | payer MEDICAID, SELFPAY ==
--- NOTE | ~2022-04-01 | MM_ITS ---
EXAMINATION: MM SCREENING DIGITAL BREAST TOMOSYNTHESIS, BILATERAL CLINICAL INFORMATION: Screening. Asymptomatic. Family history breast cancer, sister. The lifetime risk of breast cancer based on the Tyrer-Cuzick Model is 18%. COMPARISON: Mammography: 01/06/2021, 05/15/2019, 10/11/2016, 09/27/2016 (baseline) TECHNIQUE: Digital breast tomosynthesis is performed in both the craniocaudal and mediolateral oblique views along with computer-aided detection (CAD). Synthesized 2D images are generated from the tomosynthesis. FINDINGS: The breasts are heterogeneously dense, which may obscure small masses (ACR BI-RADS breast composition Category c). Parenchymal pattern is similar to prior studies. There is no interval mass or developing density or architectural abnormality. Again, there are diffuse bilateral scattered round and some vascular calcifications similar in number and distribution to prior exams. The axilla and skin contours are unremarkable. MM/MM tomosynthesis screening BI IMPRESSION: No mammographic evidence of malignancy. ASSESSMENT: BI-RADS 2: Benign RECOMMENDATION: Routine annual mammography screening. This patient's information was entered into a reminder system with a target due date for their next mammogram.
== END 2022-04-01 09:25 | disposition home or self-care (01) ==
LOC: HO.MAMMO 09:24
PROVIDERS: PCP Internal Medicine; Visit Provider Internal Medicine
DX: Z12.31 Encounter for screening mammogram for malignant neoplasm of breast (principal)
CPT/HCPCS: 77063; 77067

== ENCOUNTER 2022-05-08 10:45 | Emergency (ER) | payer MEDICAID, SELFPAY ==
--- NOTE | ~2022-05-08 | XR_ITS ---
EXAMINATION: XR KNEE, RIGHT CLINICAL INFORMATION: Unable to bear weight. COMPARISON: None TECHNIQUE: Four views of the right knee. FINDINGS: Bones and soft tissues are normal. No fracture or joint effusion. Alignment is anatomic. Joint spaces are well maintained. Possible trace suprapatellar joint effusion. XR/XR knee RT 4V IMPRESSION: Possible trace suprapatellar joint effusion without other significant abnormality.
[2022-05-08 10:52] VITALS: BP 160/98; PULSE 78; O2SAT 97
[2022-05-08 13:00] VITALS: BP 229/92; PULSE 68; RESP 20; TEMP 36.8; O2SAT 98; BMI 30.8
[2022-05-08] MEDS: Ibuprofen 600 MG TABLET PO (13:19)
--- NOTE | 2022-05-08 14:36 | ED.LOWEXIN ---
HPI - Extremity Injury (Lower) General Chief Complaint: Extremity Injury, Lower Stated Complaint: Knee pain Time Seen by Provider: 05/08/22 14:05 Related Data Home Medications Medication Instructions Recorded Confirmed hydroxyzine pamoate 50 mg capsule 1 cap PO DAILY PRN Anxiety 05/08/21 05/08/21 ketotifen fumarate 0.025 % (0.035 drp 05/08/21 %) eye drops trazodone 150 mg tablet 1 tab PO BEDTIME 05/08/21 05/08/21 Previous Rx's Medication Instructions Recorded amlodipine 5 mg tablet (Norvasc) 5 mg PO DAILY #30 tabs 05/09/21 [id number]-ytnilhsdfowge-ynookljc 1 cap PO Q8H PRN headache #14 caps 05/09/21 50 mg-300 mg-40 mg capsule (Fioricet) hydrochlorothiazide 25 mg tablet 25 mg PO QAM #30 tabs 05/09/21 aspirin 81 mg capsule 81 mg PO DAILY #60 caps 05/11/21 lisinopril 40 mg tablet 40 mg PO DAILY #30 tabs 05/11/21 atorvastatin 40 mg tablet (Lipitor) 40 mg PO BEDTIME #30 tabs 05/15/21 cephalexin 500 mg capsule 500 mg PO Q6H 10 days #40 caps 06/25/21 hydrochlorothiazide 50 mg tablet 50 mg PO DAILY #20 tabs 06/25/21 cyclobenzaprine 5 mg tablet 5 mg PO TID PRN muscle spasm 7 03/22/22 days #21 tabs ibuprofen 800 mg tablet 800 mg PO Q8H PRN pain #14 tabs 05/08/22 oxycodone 5 mg tablet 5 mg PO Q6H PRN pain #14 tabs 05/08/22 Allergies Allergy/AdvReac Type Severity Reaction Status Date / Time No Known Allergies Allergy Verified 05/08/22 12:59 [No Known Allergies*] [facility] Past Medical History Medical History Abnormal Pap smear of cervix CVA (cerebral vascular accident) Depression FH: breast cancer in first degree relative HTN (hypertension) Hypertension Ovarian cyst TIA (transient ischemic attack) Surgical History H/O prior ablation treatment History of removal of ovarian cyst Hx of tubal ligation Family History Family History Paternal Aunt Breast cancer Sister Breast cancer, Onset Age: 46 Social History Social History Household Members: Family Housing: Apartment Do you presently have visiting nurse or other home services: No Alcohol intake: unknown Patient Tobacco Use Status: Never used Tobacco Advance Directives: No Gender identity: Female Physical Exam Vital Signs: Vital Signs: Last Vital Signs Temp 98.2 F 05/08/22 13:00 Pulse 68 05/08/22 13:00 Resp 20 05/08/22 13:00 BP 229/92 H 05/08/22 13:00 Pulse Ox 98 05/08/22 13:00 O2 Del Method 05/08/22 13:00 BMI result Body Mass Index 30.8 Discharge Plan Discharge Clinical Impression: Effusion of knee joint right, Right knee sprain Patient Disposition: Home, Self-Care Instructions: Knee Sprain (ED), Crutch Instructions (ED), How to Use an Elastic Bandage (ED), Swollen Knee Joint (ED) Prescriptions: New ibuprofen 800 mg tablet 800 mg PO Q8H PRN (Reason: pain) Qty: 14 0RF oxycodone 5 mg tablet 5 mg PO Q6H PRN (Reason: pain) Qty: 14 0RF Rx Instructions: Partial Fill upon patient request. No Action ketotifen fumarate 0.025 % (0.035 %) drops hydroxyzine pamoate 50 mg capsule 1 cap PO DAILY PRN (Reason: Anxiety) trazodone 150 mg tablet 1 tab PO BEDTIME hydrochlorothiazide 25 mg tablet 25 mg PO QAM Qty: 30 0RF amlodipine [Norvasc] 5 mg tablet 5 mg PO DAILY Qty: 30 0RF [id number]-eolqudsxzwtht-odka [Fioricet] 50-300-40 mg capsule 1 cap PO Q8H PRN (Reason: headache) Qty: 14 0RF lisinopril 40 mg tablet 40 mg PO DAILY Qty: 30 0RF aspirin 81 mg capsule 81 mg PO DAILY Qty: 60 0RF atorvastatin [Lipitor] 40 mg tablet 40 mg PO BEDTIME Qty: 30 0RF cephalexin 500 mg capsule 500 mg PO Q6H 10 Days Qty: 40 0RF hydrochlorothiazide 50 mg tablet 50 mg PO DAILY Qty: 20 0RF cyclobenzaprine 5 mg tablet 5 mg PO TID PRN (Reason: muscle spasm) 7 Days Qty: 21 0RF Referrals: Ani Bright MD [Primary Care Provider] - 3 days (Follow-up for further evaluation treatment) [facility] [Provider Group] (If symptoms persist for longer than 3-4 weeks make a follow-up appointment. Si los s?ntomas persisten por m?s de 3-4 semanas, fernandez homer beverley de seguimiento) Print Language: Sami
[2022-05-08] MEDS: oxyCODONE HCl Immed Release 5 MG TABLET PO (14:45)
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
== END 2022-05-08 15:02 | disposition home or self-care (01) ==
PROVIDERS: Emergency Provider Emergency Medicine Emergency Medical Services; PCP Internal Medicine
DX: M25.461 Effusion, right knee (principal); S83.91XA Sprain of unspecified site of right knee, initial encounter; V49.9XXA Car occupant (driver) (passenger) injured in unspecified traffic accident, initial encounter; I10 Essential (primary) hypertension; Y93.9 Activity, unspecified; Y92.9 Unspecified place or not applicable; Y99.9 Unspecified external cause status
CPT/HCPCS: 73564; 99283

== ENCOUNTER 2022-05-27 | Outpatient (REF) | payer MEDICAID, SELFPAY ==
--- NOTE | ~2022-05-27 | XR_ITS ---
EXAMINATION: XR KNEE AP STANDING XR KNEE, RIGHT CLINICAL INFORMATION: Right knee pain COMPARISON: Radiographs right knee 05/08/2022 TECHNIQUE: Standing AP view of both knees is performed along with axial view right patella. FINDINGS: Right: Normal bony mineralization. No destructive process. No definite joint narrowing. No erosive change or chondrocalcinosis. Axial view patella shows no lateralization or tilting. Left: Normal bony mineralization. No destructive process. No definite joint narrowing and no erosive change or chondrocalcinosis. XR/XR knee RT 1V IMPRESSION: No definite joint narrowing or erosive change.
--- NOTE | ~2022-05-27 | XR_ITS ---
EXAMINATION: XR KNEE AP STANDING XR KNEE, RIGHT CLINICAL INFORMATION: Right knee pain COMPARISON: Radiographs right knee 05/08/2022 TECHNIQUE: Standing AP view of both knees is performed along with axial view right patella. FINDINGS: Right: Normal bony mineralization. No destructive process. No definite joint narrowing. No erosive change or chondrocalcinosis. Axial view patella shows no lateralization or tilting. Left: Normal bony mineralization. No destructive process. No definite joint narrowing and no erosive change or chondrocalcinosis. XR/XR knee standing BI IMPRESSION: No definite joint narrowing or erosive change.
== END 2022-05-27 00:01 | disposition home or self-care (01) ==
LOC: HO.HOSX
PROVIDERS: Visit Provider Physician Assistant
DX: M17.11 Unilateral primary osteoarthritis, right knee (principal); M25.461 Effusion, right knee
CPT/HCPCS: 20610; 73560; 73565; 99202; J1040

== ENCOUNTER 2022-06-19 10:01 | Outpatient (REF) | payer MEDICAID, SELFPAY ==
--- NOTE | ~2022-06-19 | MR_ITS ---
EXAMINATION: MR KNEE WITHOUT CONTRAST, RIGHT CLINICAL INFORMATION: Unilateral primary osteoarthritis. COMPARISON: None TECHNIQUE: MRI of the knee without contrast was performed using routine sequences on a high-field scanner. FINDINGS: MENISCI: Medial Meniscus: There is abnormal signal and at least partial absence of the posterior root of the medial meniscus compatible with a posterior root tear. There is outward extrusion of the meniscus not uncommonly seen with this type of tear. Lateral Meniscus: Intact. LIGAMENTS: Cruciate: Intact. Collateral: Intact. EXTENSOR MECHANISM: Intact. ARTICULAR CARTILAGE/BONE: Patellofemoral Compartment: Mild surface irregularity of the lateral facet of the patella. Trochlear cartilage normal. Overall minimal patellofemoral arthrosis. Medial Compartment: There is nonuniform up to high-grade cartilage loss involving both the femoral and tibial articular surfaces in the weightbearing portion of the compartment. There is some reactive edema and subchondral cystic change in the tibial side of the joint. Findings indicative of moderate arthrosis. Lateral Compartment: There is fissuring and up to full-thickness cartilage loss in the posterior weightbearing femoral articular surface extending over approximately a centimeter AP and 5 mm transverse. Additional surface irregularity and cartilage heterogeneity in the tibial side of the joint. Findings indicative of mild arthrosis. JOINT FLUID AND BURSAE: There is a mild joint effusion and synovitis. MR/MR knee RT wo con IMPRESSION: 1. Tear of the posterior root of the medial meniscus. 2. Minimal patellofemoral arthrosis. 3. Moderate arthrosis of the medial compartment. 4. Mild arthrosis of the lateral compartment. Mild joint effusion and synovitis.
== END 2022-06-19 10:02 | disposition home or self-care (01) ==
LOC: HO.MRI 10:01
PROVIDERS: Visit Provider Physician Assistant
DX: M17.11 Unilateral primary osteoarthritis, right knee (principal)
CPT/HCPCS: 73721

== ENCOUNTER → 2022-06-26 14:19 | Outpatient (BNVA) | payer MEDICAID, SELFPAY | PROVIDERS: PCP Internal Medicine; Visit Provider Physician Assistant | DX: S83.241D Other tear of medial meniscus, current injury, right knee, subsequent encounter (principal); M17.11 Unilateral primary osteoarthritis, right knee | CPT/HCPCS: 99212 ==

== ENCOUNTER → 2022-06-27 08:55 | Outpatient (BNVA) | payer MEDICAID, SELFPAY | PROVIDERS: PCP Internal Medicine; Visit Provider Orthopaedic Surgery | DX: M17.11 Unilateral primary osteoarthritis, right knee (principal); S83.241A Other tear of medial meniscus, current injury, right knee, initial encounter | CPT/HCPCS: 99212 ==

== ENCOUNTER 2022-08-07 09:27 | Outpatient (REF) | payer MEDICAID, SELFPAY ==
[2022-08-07 09:35] LABS: MANUAL DIFF FLAG NO
[2022-08-07 09:43] LABS: Basophils Percent Auto 0.7 % (0-2); Eosinophils Absolute Auto 0.1 X10*3/uL (0.0-0.4); Eosinophils Percent Auto 1.6 % (0-4); Hematocrit 38.7 % (37.0-47.0); Hemoglobin 12.6 g/dl (12.0-16.0); Imm Gran Abs Auto 0.01 X10*3/uL (0.00-0.03); Imm Gran Pct Auto 0.2 % (0.0-0.4); Lymphocytes Absolute Auto 1.5 X10*3/uL (1.2-4.9); Lymphocytes Percent Auto 26.5 % (20-40); Mean Corpuscular HGB Conc 32.6 g/dl (31.0-35.0); Mean Corpuscular Hemoglobin 27.2 pg (27.0-33.0); Mean Corpuscular Volume 83.4 fL (80.0-98.0); Mean Platelet Volume 9.9 fL (9.4-12.3); Monocytes Absolute Auto 0.3 X10*3/uL (0.1-1.2); Monocytes Percent Auto 5.4 % (2-11); Neutrophils Absolute Auto 3.7 x10*3/uL (2.0-8.3); Neutrophils Percent Auto 65.6 % (45-73); Platelet Count 263 X10*3/uL (160-400); Red Blood Count 4.64 X10*6/uL (4.20-5.50); Red Cell Distribution Width 14.1 % (11.0-16.0); White Blood Count 5.7 X10*3/uL (4.8-10.8)
[2022-08-07 10:20] LABS: Alanine Aminotransferase 12 U/L (0-31); Albumin Level 4.1 g/dL (3.5-5.0); Alkaline Phosphatase 66 U/L (39-117); Anion Gap 12 (12-20); Aspartate Amino Transferase 12 U/L (5-31); Bilirubin Total 0.6 mg/dL (0.0-1.0); Blood Urea Nitrogen 16 mg/dL (9-16); Calcium 9.3 mg/dL (8.4-10.2); Carbon Dioxide 25 mmol/L (22-29); Chloride 107 mmol/L (96-108); Cholesterol 213 mg/dL; Estimated Glomerular Filt Rate > 60; Glucose Random 102 mg/dL (60-115); HDL Cholesterol 43 mg/dL; LDL Cholesterol Calculated 130 mg/dl; Potassium 3.9 mmol/L (3.3-5.1); Sodium 140 mmol/L (135-145); Total Protein 6.7 g/dL (6.5-8.0); Triglycerides 204 mg/dL
[2022-08-07 11:42] LABS: Creatinine Urine 452.94 mg/dL; Microalbum/Creatinine Ratio Ur 8.3 ug/mg cr
== END 2022-08-07 09:28 | disposition home or self-care (01) ==
LOC: HO.LAB 09:27
PROVIDERS: PCP Internal Medicine; Visit Provider Internal Medicine
DX: E78.00 Pure hypercholesterolemia, unspecified (principal); I10 Essential (primary) hypertension; M25.461 Effusion, right knee
CPT/HCPCS: 36415; 80053; 80061; 82043; 85025

== ENCOUNTER → 2022-09-05 11:59 | Outpatient (BNVA) | payer MEDICAID, SELFPAY | PROVIDERS: PCP Internal Medicine; Visit Provider Orthopaedic Surgery | DX: M17.11 Unilateral primary osteoarthritis, right knee (principal); M25.461 Effusion, right knee | CPT/HCPCS: 20610; 99212; J1100 ==

== ENCOUNTER 2022-09-13 15:24 | Emergency (ER) | payer MEDICAID, SELFPAY ==
[2022-09-13 15:34] VITALS: BP 170/68; PULSE 100; RESP 16; TEMP 36.8; O2SAT 99; BMI 27.4
--- NOTE | 2022-09-13 15:34 | ED_ITS ---
HPI - General Adult General Chief complaint: Extremity Injury, Lower Stated complaint: R foot pain Time Seen by Provider: 09/13/22 15:40 Source: patient and telephone triage nurse Mode of arrival: ambulatory Limitations: language barrier History of Present Illness HPI narrative: Patient is a 51 year old assigned female at with a history of a right torn meniscus presenting to the emergency department today with worsening right knee pain. Patient states that she has been following up with orthopedics for this right knee pain but it doesn't seem to be getting better. Patient states that she has not been going to PT. Patient denies any dizziness, lightheadedness, abdominal pain, nausea, vomiting, fever, chills, blurry vision, double vision, loss of vision, chest pain, difficulty breathing, shortness of breath, back pain, night sweats, pain with urination, increased urinary frequency, increased urinary urgency, blood in her urine or stool, syncope or a near syncopal episode, bowel incontinence, bladder incontinence, bowel retention, bladder retention, or any other complaints at this time. Onset (ago): week(s) Location: right and lower extremity Severity: mild Severity scale (1-10): 3 Quality: aching Pain Consistency: constant Relieving factors: none Exacerbating factors: movement Associated symptoms: denies other symptoms Treatments prior to arrival: none Related Data Home Medications Medication Instructions Recorded Confirmed hydroxyzine pamoate 50 mg capsule 1 cap PO DAILY PRN Anxiety 05/08/21 06/26/22 ketotifen fumarate 0.025 % (0.035 drp 05/08/21 06/26/22 %) eye drops trazodone 150 mg tablet 1 tab PO BEDTIME 05/08/21 06/26/22 amlodipine 10 mg tablet 10 mg PO DAILY 05/27/22 06/26/22 diclofenac sodium 75 mg 75 mg PO BID 05/27/22 06/26/22 tablet,delayed release doxazosin 4 mg tablet 4 mg PO BEDTIME 05/27/22 06/26/22 furosemide 20 mg tablet 20 mg PO DAILY 05/27/22 06/26/22 gabapentin 100 mg capsule 100 mg PO BEDTIME 05/27/22 06/26/22 Previous Rx's Medication Instructions Recorded amlodipine 5 mg tablet (Norvasc) 5 mg PO DAILY #30 tabs 05/09/21 fsayykakyy-jgpjyfccrbmwq-svjfakgp 1 cap PO Q8H PRN headache #14 caps 05/09/21 50 mg-300 mg-40 mg capsule (Fioricet) hydrochlorothiazide 25 mg tablet 25 mg PO QAM #30 tabs 05/09/21 aspirin 81 mg capsule 81 mg PO DAILY #60 caps 05/11/21 lisinopril 40 mg tablet 40 mg PO DAILY #30 tabs 05/11/21 atorvastatin 40 mg tablet (Lipitor) 40 mg PO BEDTIME #30 tabs 05/15/21 hydrochlorothiazide 50 mg tablet 50 mg PO DAILY #20 tabs 06/25/21 cyclobenzaprine 5 mg tablet 5 mg PO TID PRN muscle spasm 7 03/22/22 days #21 tabs ibuprofen 800 mg tablet 800 mg PO Q8H PRN pain #14 tabs 05/08/22 ibuprofen 800 mg tablet 800 mg PO Q8H PRN pain 30 days #90 05/27/22 tabs naproxen 500 mg tablet 500 mg PO BID #60 tabs 06/27/22 hydrocodone 5 mg-acetaminophen 325 1 tab PO DAILY PRN pain #7 tabs 09/13/22 mg tablet oxycodone 10 mg tablet 10 mg PO Q6H PRN pain #7 tabs 09/13/22 Allergies Allergy/AdvReac Type Severity Reaction Status Date / Time No Known Allergies Allergy Verified 09/13/22 15:33 [No Known Allergies*] Review of Systems Constitutional: Constitutional: Reports no additional constitutional complaints, Denies chills, Denies fever(s) and Denies night sweats Eyes: Eyes: Reports no additional eye complaints, Denies blurry vision, Denies change in vision, Denies diplopia, Denies eye discharge, Denies loss of vision and Denies eye pain ENT: Denies dizziness Cardiovascular: Cardiovascular: Reports no additional cardiovascular complaints, Denies chest pain, Denies lightheadedness, Denies Loss of Consciousness and Denies dyspnea Respiratory: Respiratory: Reports no additional respiratory complaints and Denies dyspnea Gastrointestinal: Gastrointestinal: Reports no additional gastrointestinal complaints, Denies abdominal pain, Denies melena, Denies hematochezia, Denies change in bowel habits and Denies change in stool character Genitourinary: Genitourinary: Denies hematuria, Denies urinary frequency, Denies dysuria, Denies urinary incontinence, Denies urinary hesitancy and Denies urinary urgency Musculoskeletal: Musculoskeletal: Reports no additional musculoskeletal complaints, Denies numbness and Denies tingling Comments: right knee pain Neurologic: Denies dizziness, Denies loss of vision, Denies numbness and Denies tingling Psychiatric: Psychiatric: Reports no additional psychiatric complaints Endocrine: Endocrine: Reports no additional endocrine complaints Hematologic/Lymphatic: Hematologic/Lymphatic: Reports no additional hematologic/lymphatic complaints Allergic/Immunologic: Allergic/Immunologic: Reports no additional allergic/immunologic complaints PMFSH Past Medical History Attestation statement: The following information was validated with the patient. Source: old records reviewed and nursing notes reviewed Medical History Abnormal Pap smear of cervix CVA (cerebral vascular accident) Depression FH: breast cancer in first degree relative HTN (hypertension) Hypertension Ovarian cyst TIA (transient ischemic attack) Surgical History H/O prior ablation treatment History of removal of ovarian cyst Hx of tubal ligation Family History Family History Paternal Aunt Breast cancer Sister Breast cancer, Onset Age: 46 Social History Social History Household Members: Family Housing: Apartment Do you presently have visiting nurse or other home services: No Alcohol intake: never Patient Tobacco Use Status: Never used Tobacco Advance Directives: Yes Advance Directives on File: Yes Advance Directives Date on File: 11/30/20 Current occupational status: unemployed and retired Gender identity: Female Physical Exam ED Vital Signs: Vital Signs - 24 hr 09/13/22 15:34 Temperature 98.2 F Pulse Rate 100 Respiratory Rate 16 Blood Pressure 170/68 H Pulse Oximetry 99 Oxygen Delivery Method Room Air BMI result Body Mass Index 27.4 Const General: cooperative, no acute distress, alert and awake Nutritional Appearance: well nourished Orientation/consciousness: patient oriented x3 Limitations: no limitations HENMT Head: Yes normal to inspection and Yes atraumatic Ears: hearing grossly normal bilaterally and external ears normal General nose exam: Normal external nose present, no nasal discharge noted and no epistaxis Face and sinus: Yes normal facial exam, No abrasion and No laceration Mouth: Normal oral and palatal mucosa present, no drooling and no muffled voice Eyes General: appearance normal, both eyes and all related structures Periorbital: periorbital findings normal Eyelids: Yes eyelids normal Conjunctivae: conjunctivae normal Pupils: Equal, round and reactive pupils present EOM: EOMs intact bilaterally Neck Neck: Yes normal visual inspection, Yes full ROM and Yes no lymphadenopathy Chest Chest palpation & inspection: normal inspection of the chest Resp Effort & Inspection: normal respiratory effort and able to speak in complete sentences Auscultation: clear to auscultation bilaterally Cardio Rate: regular rate Rhythm: regular rhythm GI Inspection: Yes normal to inspection Neuro General: patient oriented x3 and moves all extremities Cranial nerves: Yes Equal, round and reactive pupils present Cognition (Neuro): normal cognition Motor exam (neuro): 5/5 motor strength present throughout Sensory Exam: Normal double simultaneous stimulation for sensation Coordination: [id number]-cr-[id number] test normal Extrem Other: pain with ROM of the right knee General: Yes capillary refill normal Psych Appearance: grossly normal Mental Status: mental status grossly normal Affect: normal affect Attitude: cooperative Thought process: Normal thought process present Thought content: Normal thought content present Insight: Good insight present (Psych) Procedures Orthopedic Splinting/Casting Injury #1: Side: right Lower Extremity Injury Location: knee Lower Extremity Immobilizer: knee immobilizer Other Orthopedic Equipment: crutches Medical Decision Making Medical Decision Making MDM Narrative: Patient is a 51 year old assigned female at with a history of a torn right meniscus presenting to the emergency department today with right knee pain. Patient's physical exam showed an uncomfortable individual who has pain with right knee ROM but was otherwise unremarkable. I explained my physical exam findings to the patient. I answered all questions asked by the patient. Patient's right knee was immobilized and she was given crutches with crutch instructions. I stressed the importance of the patient taking her medication as prescribed. I stressed the importance of the patient following up with her primary care provider and an orthopedic provider. I stressed the importance of the patient returning to the emergency department immediately if her symptoms were to worsen or if she were to develop any dizziness, shortness of breath, difficulty breathing, chest pain, blurry vision, loss of vision, nausea, vomiting, abdominal pain, fever, chills, back pain, or any other complaints. Patient verbalized agreement and understanding with this treatment plan and discharge. Differential Diagnosis Differential Diagnoses: The differential diagnosis associated with the prese ntation includes right knee pain, torn right meniscus Discharge Plan Discharge Clinical Impression: Acute knee pain Patient Disposition: Home, Self-Care Instructions: Narcotic Safety (ED), Knee Pain (ED), Safe Disposal of Narcotics (ED) Additional Instructions: Follow up with your primary care provider and an orthopedic provider. Return to the emergency department immediately if your symptoms worsen or if you develop any dizziness, shortness of breath, difficulty breathing, chest pain, blurry vision, loss of vision, nausea, vomiting, abdominal pain, fever, chills, back pain, or any other complaints. Kush un seguimiento con olivera proveedor de atenci?n primaria y un proveedor o rtop?dico. Regrese al departamento de emergencias de inmediato si raeann s?ntomas empeoran o si presenta mareos, falta de aire, dificultad para respirar, dolor de pecho, visi?n borrosa, p?rdida de la visi?n, n?useas, v?mitos, dolor abdominal, fiebre, escalofr?os, dolor de espalda o cualquier otras quejas. Prescriptions: New hydrocodone-acetaminophen 5-325 mg tablet 1 tab PO DAILY PRN (Reason: pain) Qty: 7 0RF Rx Instructions: Partial Fill upon patient request. oxycodone 10 mg tablet 10 mg PO Q6H PRN (Reason: pain) Qty: 7 0RF Rx Instructions: Partial Fill upon patient request. No Action ketotifen fumarate 0.025 % (0.035 %) drops hydroxyzine pamoate 50 mg capsule 1 cap PO DAILY PRN (Reason: Anxiety) trazodone 150 mg tablet 1 tab PO BEDTIME hydrochlorothiazide 25 mg tablet 25 mg PO QAM Qty: 30 0RF amlodipine [Norvasc] 5 mg tablet 5 mg PO DAILY Qty: 30 0RF [id number]-awhytqhoceclu-nahx [Fioricet] 50-300-40 mg capsule 1 cap PO Q8H PRN (Reason: headache) Qty: 14 0RF lisinopril 40 mg tablet 40 mg PO DAILY Qty: 30 0RF aspirin 81 mg capsule 81 mg PO DAILY Qty: 60 0RF atorvastatin [Lipitor] 40 mg tablet 40 mg PO BEDTIME Qty: 30 0RF hydrochlorothiazide 50 mg tablet 50 mg PO DAILY Qty: 20 0RF cyclobenzaprine 5 mg tablet 5 mg PO TID PRN (Reason: muscle spasm) 7 Days Qty: 21 0RF ibuprofen 800 mg tablet 800 mg PO Q8H PRN (Reason: pain) Qty: 14 0RF naproxen 500 mg tablet 500 mg PO BID Qty: 60 2RF diclofenac sodium 75 mg tablet,delayed release (DR/EC) 75 mg PO BID furosemide 20 mg tablet 20 mg PO DAILY doxazosin 4 mg tablet 4 mg PO BEDTIME gabapentin 100 mg capsule 100 mg PO BEDTIME amlodipine 10 mg tablet 10 mg PO DAILY ibuprofen 800 mg tablet 800 mg PO Q8H PRN (Reason: pain) 30 Days Qty: 90 3RF Referrals: [facility] [place] Orth[facility] Surgeons [Provider Group] Ani Bright MD [Primary Care Provider] - Discharge Date/Time: 09/13/22 15:52 Print Language: Fijian
== END 2022-09-13 15:52 | disposition home or self-care (01) ==
LOC: HO.ED 15:48
PROVIDERS: Emergency Provider Student in an Organized Health Care Education/Training Program; PCP Internal Medicine
DX: M25.561 Pain in right knee (principal); Z79.899 Other long term (current) drug therapy
CPT/HCPCS: 99281; 99283

== ENCOUNTER → 2022-10-03 10:34 | Outpatient (BNVA) | payer MEDICAID, SELFPAY | PROVIDERS: PCP Internal Medicine; Visit Provider Orthopaedic Surgery | DX: M17.11 Unilateral primary osteoarthritis, right knee (principal); M25.461 Effusion, right knee | CPT/HCPCS: 20610; 99212; J1100 ==

== ENCOUNTER 2022-10-09 17:10 | Emergency (ER) | payer MEDICAID, SELFPAY | END 2022-10-09 18:49 | disposition left against medical advice (07) | PROVIDERS: Emergency Provider Internal Medicine; PCP Internal Medicine | DX: R10.9 Unspecified abdominal pain (principal) ==

== ENCOUNTER 2022-10-29 18:00 | Inpatient (IN) | payer MEDICAID, SELFPAY ==
[2022-10-29] VITALS (8 sets, daily range): BP systolic 171–222; BP diastolic 79–116; PULSE 67–103; RESP 15–18; TEMP 36.6–36.9; O2SAT 94–100; BMI 30.7
--- NOTE | ~2022-10-29 | US_ITS ---
EXAMINATION: US RETROPERITONEAL LIMITED (RENAL ONLY) CLINICAL INFORMATION: Hypertension. COMPARISON: Previous CT of the abdomen and pelvis January 2019 and renal ultrasound January 2016. TECHNIQUE: Doppler, color and grayscale imaging of the kidneys. Grayscale color and Doppler imaging including waveform spectral analysis of the renal arteries. FINDINGS: RIGHT KIDNEY: 12 x 5 x 6 cm (SAG x AP x TRV). The kidney is normal in size, contour, and echogenicity. There is cortical thinning in the upper pole of the right kidney. Cortical thickness is otherwise normal. No calculi or focal parenchymal lesions. No hydronephrosis. LEFT KIDNEY: 11.4 x 5.7 x 4.8 cm (SAG x AP x TRV). The kidney is normal in size, contour, and echogenicity. Renal cortical thickness is normal. No calculi or focal parenchymal lesions. No hydronephrosis. Aortic peak systolic velocity is 86 cm/s. The right renal artery is patent. Renal artery peak systolic velocities measure 160, 135 and 63 cm/s proximally, in the midportion and distally. Right renal artery to aorta ratio is 1.8. Resistive indices of the segmental renal arteries in the right kidney are normal measuring 0.7-0.8. The right renal vein is patent. Left renal artery is patent. Left renal artery peak systolic velocities measure 158, 162 cm/s proximally, in the midportion and distally. Left renal artery to aorta ratio is normal measuring 1.8. Resistive indices of the segmental renal arteries in the left kidney are normal measuring 0.7-0.8. The left renal vein is patent. US/US renal BI IMPRESSION: Area of cortical thinning or scarring in the upper pole of the right kidney. Otherwise normal renal ultrasound. Normal renal Doppler exam. No evidence of renal artery stenosis.
--- NOTE | ~2022-10-29 | XR_ITS ---
EXAMINATION: XR CHEST CLINICAL INFORMATION: Dizziness. COMPARISON: 05/08/2021 chest radiograph. TECHNIQUE: Frontal view of the chest was obtained. FINDINGS: No significant abnormality is noted involving the heart, lungs, mediastinum, bony thorax or soft tissues. XR/XR chest 1V IMPRESSION: No acute cardiopulmonary process.
--- NOTE | ~2022-10-29 | CT_ITS ---
EXAMINATION: CT HEAD WITHOUT CONTRAST (STROKE PROTOCOL) CLINICAL INFORMATION: Stroke protocol. . Headache. Hypertensive. COMPARISON: CT head 05/09/2021 TECHNIQUE: Contiguous axial imaging was performed from the skull base to vertex without intravenous administration of contrast. Coronal and sagittal reformatted images are performed at CT scanner This CT examination was performed using dose optimization techniques as appropriate, variously including the following: *Automated exposure control *Adjustment of mA and/or kV according to patient size (this includes techniques or standardized protocols for targeted exams where dose is matched to indication/reason for exam; i.e. extremities or head) *Use of iterative reconstruction technique DLP: 734 mGy-cm FINDINGS: Focal encephalomalacia from old infarct in the right occipital lobe. There is no evidence of acute intracranial hemorrhage or acute territorial infarction. No abnormal mass-effect or midline shift is seen. Perdomo to white matter differentiation is well preserved. No extra-axial fluid collections are identified. There is mild hypodensity of the periventricular white matter due to chronic small vessel ischemic disease. There are vascular calcifications of the internal carotid arteries bilaterally. There is no osseous abnormality. The mastoid air cells and visualized portions of the paranasal sinuses are well-aerated. CT/CT head for stroke IMPRESSION: No acute intracranial pathology. This critical result was discussed with Dr Wagner at 1840 hours on 10/29/2022. It was ascertained that the content and urgency of the report was understood at the time of direct communication.
--- NOTE | ~2022-10-29 | CT_ITS ---
EXAMINATION: CT ANGIOGRAM HEAD CT ANGIOGRAM NECK CLINICAL INFORMATION: Reason for Exam dizzy with rt eye blurry COMPARISON: Same day CT head without contrast, CTA head and neck 05/09/2021 TECHNIQUE: Initial noncontrast director public imaging of the head and neck was performed. Comparison is made with noncontrast head CT from earlier today. Test bolus sequences followed by intravenous administration 70 mL of Omnipaque 350. Helical imaging was performed in the axial plane from the aortic arch to the skull vertex. Delayed postcontrast imaging of the head was also performed. The data was processed at the chief ultrasound technologist's workstation for generation of MIP sequences. Angled MIPs and volume rendered reformatted images were also generated at an offline 3D workstation. Stenoses are assessed in accordance with NASCET criteria unless otherwise indicated. DLP: 1575.31 mGy-cm This CT examination was performed using dose optimization techniques as appropriate, variously including the following: *Automated exposure control. *Adjustment of mA and/or kV according to patient size (this includes techniques or standardized protocols for targeted exams where dose is matched to indication/reason for exam; i.e. extremities or head). *Use of iterative reconstruction technique. FINDINGS: CT Head: There is no evidence of acute intracranial hemorrhage or edematous territorial infarction. Chronic right MEAT LUGGER territory infarct. Chronic left thalamic lacunar infarct. Perdomo-white matter differentiation is preserved. The ventricles are normal in size and configuration. No evidence for obstructive hydrocephalus. No abnormal mass effect or midline shift. No extra-axial fluid collections. Callosal lipoma. No pathologic intra-axial enhancement or regional oligemia. No acute soft tissue or osseous abnormalities. The mastoid air cells and paranasal sinuses are clear. CT Neck: The thyroid gland and remaining cervical soft tissues are within normal limits. Mild multilevel cervical spondylosis CT Upper Chest: The visualized lung apices and upper mediastinum are within normal limits. Neck CTA: Aortic Arch: Normal contour and caliber. Classic 3 vessel branching pattern of the aortic arch. Great Vessel Origins: No significant stenosis of the branch origins. Right Common Carotid Artery: No focal stenosis or occlusion. Cervical Right Internal Carotid Artery: Calcific atherosclerotic disease of the carotid bulb and proximal internal carotid artery causing less than 50% stenosis. Left Common Carotid Artery: No focal stenosis or occlusion. Cervical Left Internal Carotid Artery: Calcific atherosclerotic disease of the carotid bulb and proximal internal carotid artery causing less than 50% stenosis. Cervical Right Vertebral Artery: No focal stenosis or occlusion. Cervical Left Vertebral Artery: No focal stenosis or occlusion. Brain CTA: Intracranial Internal Carotid Arteries: Calcific atherosclerotic disease of the intracranial internal carotid arteries without occlusion or flow-limiting stenosis. Right Anterior Cerebral Artery: Normal A1 segment. There is a progressive high-grade stenosis of the right A2 segment (series 6 image 203) with distal vessel reconstitution and normal contrast filling of the remainder of the right ASHLEY complex. Left Anterior Cerebral Artery: Normal A1 segment. Normal opacification of the distal ASHLEY segments. Anterior Communicating Artery: Normal. Right Middle Cerebral Artery: Normal M1 segment of the MCA without focal stenosis or occlusion. Normal arborization of the distal segments. Left Middle Cerebral Artery: Normal M1 segment of the MCA without focal stenosis or occlusion. Normal arborization of the distal segments. Right Vertebral Artery: Normal V4 segment. Left Vertebral Artery: Normal V4 segment. Basilar Artery: Normal without focal stenosis or occlusion. Normal appearance of the proximal superior cerebellar arteries. Right Posterior Cerebral Artery: Normal P1 segment. Normal opacification of the distal MEAT LUGGER segments. There is improved caliber of the right P1 P2 junction compared to CTA from 05/09/2021 with mild to moderate residual stenosis. Left Posterior Cerebral Artery: Normal P1 segment. Normal opacification of the distal MEAT LUGGER segments. Normal opacification of the superior sagittal, straight, transverse, and sigmoid sinuses. CT/CT angio head neck stroke IMPRESSION: 1. Progressive short segment high-grade stenosis of the A2 segment of the right anterior cerebral artery with immediate distal vessel reconstitution and preserved contrast filling of the remainder of the right ASHLEY complex. 2. No other new or progressive arterial high-grade stenosis or large vessel occlusion in the head or neck compared to CTA from 05/09/2021. There is improved caliber of the right P1 P2 junction with mild to moderate residual stenosis. Above impression was communicated to Dr Wagner on 10/29/2022 at 7:02 PM
--- NOTE | ~2022-10-29 | US_ITS ---
EXAMINATION: US RETROPERITONEAL LIMITED (RENAL ONLY) CLINICAL INFORMATION: Hypertension. COMPARISON: Previous CT of the abdomen and pelvis January 2019 and renal ultrasound January 2016. TECHNIQUE: Doppler, color and grayscale imaging of the kidneys. Grayscale color and Doppler imaging including waveform spectral analysis of the renal arteries. FINDINGS: RIGHT KIDNEY: 12 x 5 x 6 cm (SAG x AP x TRV). The kidney is normal in size, contour, and echogenicity. There is cortical thinning in the upper pole of the right kidney. Cortical thickness is otherwise normal. No calculi or focal parenchymal lesions. No hydronephrosis. LEFT KIDNEY: 11.4 x 5.7 x 4.8 cm (SAG x AP x TRV). The kidney is normal in size, contour, and echogenicity. Renal cortical thickness is normal. No calculi or focal parenchymal lesions. No hydronephrosis. Aortic peak systolic velocity is 86 cm/s. The right renal artery is patent. Renal artery peak systolic velocities measure 160, 135 and 63 cm/s proximally, in the midportion and distally. Right renal artery to aorta ratio is 1.8. Resistive indices of the segmental renal arteries in the right kidney are normal measuring 0.7-0.8. The right renal vein is patent. Left renal artery is patent. Left renal artery peak systolic velocities measure 158, 162 cm/s proximally, in the midportion and distally. Left renal artery to aorta ratio is normal measuring 1.8. Resistive indices of the segmental renal arteries in the left kidney are normal measuring 0.7-0.8. The left renal vein is patent. US/US renal doppler IMPRESSION: Area of cortical thinning or scarring in the upper pole of the right kidney. Otherwise normal renal ultrasound. Normal renal Doppler exam. No evidence of renal artery stenosis.
--- NOTE | 2022-10-29 18:02 | ED.NEUROSD ---
HPI - Neuro Symptoms/Deficit General Chief Complaint: Stroke <WENDY Betancourt - Last Filed: 10/29/22 18:10> Stated Complaint: stroke? 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 Patient reports headaches, feeling off balance, as well as some difficulties with speech, and eye blurriness. She states her blood pressure has been under control and she is continued take her medication. She denies any changes in medications or new medications. <Keya Wagner MD - Last Filed: 10/29/22 19:59> Related Data Home Medications: Home Medications Medication Instructions Recorded Confirmed hydroxyzine pamoate 50 mg capsule 1 cap PO DAILY PRN Anxiety 05/08/21 06/26/22 ketotifen fumarate 0.025 % (0.035 drp 05/08/21 06/26/22 %) eye drops trazodone 150 mg tablet 1 tab PO BEDTIME 05/08/21 06/26/22 amlodipine 10 mg tablet 10 mg PO DAILY 05/27/22 06/26/22 diclofenac sodium 75 mg 75 mg PO BID 05/27/22 06/26/22 tablet,delayed release doxazosin 4 mg tablet 4 mg PO BEDTIME 05/27/22 06/26/22 furosemide 20 mg tablet 20 mg PO DAILY 05/27/22 06/26/22 gabapentin 100 mg capsule 100 mg PO BEDTIME 05/27/22 06/26/22 Previous Rx's Medication Instructions Recorded amlodipine 5 mg tablet (Norvasc) 5 mg PO DAILY #30 tabs 05/09/21 evzwzqyhhl-kzghwfvlfsfyd-jufpfwjx 1 cap PO Q8H PRN headache #14 caps 05/09/21 50 mg-300 mg-40 mg capsule (Fioricet) hydrochlorothiazide 25 mg tablet 25 mg PO QAM #30 tabs 05/09/21 aspirin 81 mg capsule 81 mg PO DAILY #60 caps 05/11/21 lisinopril 40 mg tablet 40 mg PO DAILY #30 tabs 05/11/21 atorvastatin 40 mg tablet (Lipitor) 40 mg PO BEDTIME #30 tabs 05/15/21 hydrochlorothiazide 50 mg tablet 50 mg PO DAILY #20 tabs 06/25/21 cyclobenzaprine 5 mg tablet 5 mg PO TID PRN muscle spasm 7 03/22/22 days #21 tabs ibuprofen 800 mg tablet 800 mg PO Q8H PRN pain #14 tabs 05/08/22 naproxen 500 mg tablet 500 mg PO BID #60 tabs 06/27/22 hydrocodone 5 mg-acetaminophen 325 1 tab PO DAILY PRN pain #7 tabs 09/13/22 mg tablet ibuprofen 800 mg tablet 800 mg PO Q8H PRN pain 30 days #90 09/23/22 tabs <WENDY Betancourt - Last Filed: 10/29/22 18:10> Allergies/Adverse Reactions: Allergies Allergy/AdvReac Type Severity Reaction Status Date / Time No Known Allergies Allergy Verified 10/03/22 10:52 [No Known Allergies*] <WENDY Betancourt - Last Filed: 10/29/22 18:10> Review of Systems Review of Systems: Pertinent positives and negatives as stated in HPI <Keya Wagner MD - Last Filed: 10/29/22 19:59> [facility] Past Medical History Source: nursing notes reviewed <Keya Wagner MD - Last Filed: 10/29/22 19:59> Medical History: Medical History Abnormal Pap smear of cervix CVA (cerebral vascular accident) Depression FH: breast cancer in first degree relative HTN (hypertension) Hypertension Ovarian cyst TIA (transient ischemic attack) <WENDY Betancourt - Last Filed: 10/29/22 18:10> Surgical History: Surgical History H/O prior ablation treatment History of removal of ovarian cyst Hx of tubal ligation <WENDY Betancourt - Last Filed: 10/29/22 18:10> Family History Family History: Family History Paternal Aunt Breast cancer Sister Breast cancer, Onset Age: 46 <WENDY Betancourt - Last Filed: 10/29/22 18:10> Social History Social History: Social History Household Members: Family Housing: Apartment Do you presently have visiting nurse or other home services: No Alcohol intake: never Patient Tobacco Use Status: Never used Tobacco Smoked in Last 30 Days: No Use of substances other than those prescribed or required for medical reasons: No Advance Directives: Yes Advance Directives on File: Yes Advance Directives Date on File: 05/09/21 Current occupational status: unemployed and retired Gender identity: Female <WENDY Betancourt - Last Filed: 10/29/22 18:10> Physical Exam Vital Signs: Vital Signs: Last Vital Signs Temp 98.4 F 10/29/22 19:37 Pulse 83 10/29/22 19:41 Resp 18 10/29/22 19:37 BP 211/104 H 10/29/22 19:41 Pulse Ox 94 10/29/22 19:37 O2 Del Method Room Air 10/29/22 19:37 BMI result Body Mass Index 30.7 <WENDY Betancourt - Last Filed: 10/29/22 18:10> Vital Signs: Last Vital Signs Temp 98.4 F 10/29/22 19:37 Pulse 83 10/29/22 19:41 Resp 18 10/29/22 19:37 BP 211/104 H 10/29/22 19:41 Pulse Ox 94 10/29/22 19:37 O2 Del Method Room Air 10/29/22 19:37 BMI result Body Mass Index 30.7 VITAL SIGNS: Reviewed. GENERAL: Well developed, well nourished, in no acute distress. HEAD: Normocephalic/atraumatic EYES: PERRLA, EOMI EARS: Ext canals without abnormality NOSE: Nares patent bilateral OROPHARYNX: no oral lesions noted, posterior pharynx clear NECK: Supple, no adenopathy LUNGS: Normal breath sounds. No adventitious sounds or accessory muscle use. SpO2<98> CARDIOVASCULAR: Regular rate and rhythm without noted murmurs ABDOMEN: Soft, non-tender, non-distended with bowel sounds. MUSCULOSKELETAL: No tenderness, deformities, or effusions noted on gross inspection. EXTREMITIES: No cyanosis, clubbing or edema. SKIN: Inspection of the skin reveals no rashes NEUROLOGIC: Alert and oriented x 4. Strength and sensation to light touch were grossly intact x 4, I do not appreciate any speech deficits, please review NIH stroke scale details. <Keya Wagner MD - Last Filed: 10/29/22 19:59> Course Course Course Narrative: RME-- 51yo F w/PMHx CVA/TIA, depression, HTN, c/o ABRAHAM, lightheadedness, dizziness, dry mouth, myalgias, nausea, feeling off balance since 10AM. Symptoms worsening. Reports when she talks she feels like shes biting her tongue. Reports feels like she is having a stroke No focal deficits on exam, Ambulating w/steady gait w/assistance HTNsive in triage 222/116 > admits to taking her BP meds today Charge nurse aware. EKG, labs, CXR, Head CT, Orthos ordered <WENDY Betancourt - Last Filed: 10/29/22 18:10> Medications Administered Discontinued Medications Generic Name Dose Route Start Last Admin Trade Name Freq PRN Reason Stop Dose Admin Iohexol 100 ml 10/29/22 18:37 10/29/22 18:37 Iohexol 350 Mg/Ml 100 Ml Infus..Btl IV 10/29/22 18:38 70 ml ONCE ONE Administration Labetalol HCl 5 mg 10/29/22 18:11 10/29/22 18:44 Labetalol Hcl 100 Mg/20 Ml Vial IVPUSH 10/29/22 18:12 5 mg ONCE ONE Administration <WENDY Betancourt - Last Filed: 10/29/22 18:10> Medications Administered Discontinued Medications Generic Name Dose Route Start Last Admin Trade Name Freq PRN Reason Stop Dose Admin Iohexol 100 ml 10/29/22 18:37 10/29/22 18:37 Iohexol 350 Mg/Ml 100 Ml Infus..Btl IV 10/29/22 18:38 70 ml ONCE ONE Administration Labetalol HCl 5 mg 10/29/22 18:11 10/29/22 18:44 Labetalol Hcl 100 Mg/20 Ml Vial IVPUSH 10/29/22 18:12 5 mg ONCE ONE Administration <Keya Wagner MD - Last Filed: 10/29/22 19:59> Medical Decision Making Medical Decision Making [facility] Narrative: 1809: 51-year-old female with history and clinical presentation concerning for stroke-like symptoms, patient is subacute, but suspect there may be some pathology in left posterior. Since patient is also noted to be hypertensive suspect that this may be driving her symptoms, IV line placed and 5 mg of labetalol administered. 1837: Page out to Neuro 1841: Noncontrast CT of the head is negative for acute abnormalities. 1854: I discussed the case with Dr. Scott: His recommendations are to treat the blood pressure, no need for tPA given non debilitating symptoms such as gross motor or sensory deficits. No gross visual or speech deficit at this time. 1859: I discussed the CT angio of head and neck with radiology who describes no acute changes but does communicate that the right ASHLEY has worsening stenosis when compared to prior imaging studies. There are no focal findings on my exam to further support this stenosis contributing to patient's presentation. 1945: On re-evaluation patient's blood pressure continues to remain elevated, I discussed the case with the inpatient hospitalist who accepts admission for hypertensive crisis and further blood pressure control. I discussed all results and findings at the bedside with dining room busser. Patient is aware that she will be admitted. <Keya Wagner MD - Last Filed: 10/29/22 19:59> Differential Diagnosis Please see the discussion above <Keya Wagner MD - Last Filed: 10/29/22 19:59> Consult Healthcare Provider Please see the discussion above <Keya Wagner MD - Last Filed: 10/29/22 19:59> Lab Data Please see the discussion above <Keya Wagner MD - Last Filed: 10/29/22 19:59> Result Diagrams: 10/29/22 19:00 10/29/22 19:00 <WENDY Betancourt - Last Filed: 10/29/22 18:10> Labs: Lab Results 10/29/22 10/29/22 10/29/22 Range/Units 18:25 18:27 19:00 WBC 7.5 (4.8-10.8) X10*3/uL RBC 4.80 (4.20-5.50) X10*6/uL Hgb 12.9 (12.0-16.0) g/dl Hct 39.2 (37.0-47.0) % MCV 81.7 (80.0-98.0) fL MCH 26.9 L (27.0-33.0) pg MCHC 32.9 (31.0-35.0) g/dl RDW 14.1 (11.0-16.0) % Plt Count 299 (160-400) X10*3/uL MPV 9.6 (9.4-12.3) fL Immature Gran % (Auto) 0.4 (0.0-0.4) % Neut % (Auto) 72.5 (45-73) % Lymph % (Auto) 19.7 L (20-40) % [place] % (Auto) 5.7 (2-11) % Eos % (Auto) 1.2 (0-4) % Baso % (Auto) 0.5 (0-2) % Lymph # (Auto) 1.5 (1.2-4.9) X10*3/uL [place] # (Auto) 0.4 (0.1-1.2) X10*3/uL Eos # (Auto) 0.1 (0.0-0.4) X10*3/uL Baso # (Auto) 0.0 (0.0-0.2) X10*3/uL Abs Immat Gran (auto) 0.03 (0.00-0.03) X10*3/uL Absolute Neuts (auto) 5.5 (2.0-8.3) x10*3/uL Absolute Nucleated RBC 0.000 (0.0-0.012) X10*3/uL Nucleated RBC % (auto) 0.0 (0.0-0.2) /100WBC PT (10.0-13.1) SEC Whole Blood PT 11.3 (11.1-13.5) sec INR (0.9-1.1) Whole Blood INR 0.9 (0.9-1.1) Sodium (135-145) mmol/L Potassium (3.3-5.1) mmol/L Chloride (96-108) mmol/L Carbon Dioxide (22-29) mmol/L Anion Gap (12-20) BUN (9-16) mg/dL Creatinine (0.5-1.4) mg/dL Estim Creat Clear Calc Estimated GFR POC Glucose 110 (60-115) mg/dL Random Glucose (60-115) mg/dL Calcium (8.4-10.2) mg/dL Magnesium (1.6-2.6) mg/dL Total Bilirubin (0.0-1.0) mg/dL Direct Bilirubin (0.0-0.5) mg/dL AST (5-31) U/L ALT (0-31) U/L Alkaline Phosphatase (39-117) U/L Troponin I High Sens (<3.5-17.0) ng/L Total Protein (6.5-8.0) g/dL Albumin (3.5-5.0) g/dL 10/29/22 10/29/22 10/29/22 Range/Units 19:00 19:00 19:00 WBC (4.8-10.8) X10*3/uL RBC (4.20-5.50) X10*6/uL Hgb (12.0-16.0) g/dl Hct (37.0-47.0) % MCV (80.0-98.0) fL MCH (27.0-33.0) pg MCHC (31.0-35.0) g/dl RDW (11.0-16.0) % Plt Count (160-400) X10*3/uL MPV (9.4-12.3) fL Immature Gran % (Auto) (0.0-0.4) % Neut % (Auto) (45-73) % Lymph % (Auto) (20-40) % [place] % (Auto) (2-11) % Eos % (Auto) (0-4) % Baso % (Auto) (0-2) % Lymph # (Auto) (1.2-4.9) X10*3/uL [place] # (Auto) (0.1-1.2) X10*3/uL Eos # (Auto) (0.0-0.4) X10*3/uL Baso # (Auto) (0.0-0.2) X10*3/uL Abs Immat Gran (auto) (0.00-0.03) X10*3/uL Absolute Neuts (auto) (2.0-8.3) x10*3/uL Absolute Nucleated RBC (0.0-0.012) X10*3/uL Nucleated RBC % (auto) (0.0-0.2) /100WBC PT 10.9 (10.0-13.1) SEC Whole Blood PT (11.1-13.5) sec INR 1.0 (0.9-1.1) Whole Blood INR (0.9-1.1) Sodium 139 (135-145) mmol/L Potassium 4.8 D (3.3-5.1) mmol/L Chloride 103 (96-108) mmol/L Carbon Dioxide 28 (22-29) mmol/L Anion Gap 13 (12-20) BUN 13 (9-16) mg/dL Creatinine 0.84 (0.5-1.4) mg/dL Estim Creat Clear Calc 87.6 Estimated GFR > 60 POC Glucose (60-115) mg/dL Random Glucose 111 (60-115) mg/dL Calcium 8.8 (8.4-10.2) mg/dL Magnesium 2.1 (1.6-2.6) mg/dL Total Bilirubin 0.4 (0.0-1.0) mg/dL Direct Bilirubin 0.1 (0.0-0.5) mg/dL AST 11 (5-31) U/L ALT 15 (0-31) U/L Alkaline Phosphatase 84 (39-117) U/L Troponin I High Sens < 2.7 (<3.5-17.0) ng/L Total Protein 6.6 (6.5-8.0) g/dL Albumin 4.0 (3.5-5.0) g/dL <WENDY Betancourt - Last Filed: 10/29/22 18:10> Lab Results 10/29/22 10/29/22 10/29/22 Range/Units 18:25 18:27 19:00 WBC 7.5 (4.8-10.8) X10*3/uL RBC 4.80 (4.20-5.50) X10*6/uL Hgb 12.9 (12.0-16.0) g/dl Hct 39.2 (37.0-47.0) % MCV 81.7 (80.0-98.0) fL MCH 26.9 L (27.0-33.0) pg MCHC 32.9 (31.0-35.0) g/dl RDW 14.1 (11.0-16.0) % Plt Count 299 (160-400) X10*3/uL MPV 9.6 (9.4-12.3) fL Immature Gran % (Auto) 0.4 (0.0-0.4) % Neut % (Auto) 72.5 (45-73) % Lymph % (Auto) 19.7 L (20-40) % [place] % (Auto) 5.7 (2-11) % Eos % (Auto) 1.2 (0-4) % Baso % (Auto) 0.5 (0-2) % Lymph # (Auto) 1.5 (1.2-4.9) X10*3/uL [place] # (Auto) 0.4 (0.1-1.2) X10*3/uL Eos # (Auto) 0.1 (0.0-0.4) X10*3/uL Baso # (Auto) 0.0 (0.0-0.2) X10*3/uL Abs Immat Gran (auto) 0.03 (0.00-0.03) X10*3/uL Absolute Neuts (auto) 5.5 (2.0-8.3) x10*3/uL Absolute Nucleated RBC 0.000 (0.0-0.012) X10*3/uL Nucleated RBC % (auto) 0.0 (0.0-0.2) /100WBC PT (10.0-13.1) SEC Whole Blood PT 11.3 (11.1-13.5) sec INR (0.9-1.1) Whole Blood INR 0.9 (0.9-1.1) Sodium (135-145) mmol/L Potassium (3.3-5.1) mmol/L Chloride (96-108) mmol/L Carbon Dioxide (22-29) mmol/L Anion Gap (12-20) BUN (9-16) mg/dL Creatinine (0.5-1.4) mg/dL Estim Creat Clear Calc Estimated GFR POC Glucose 110 (60-115) mg/dL Random Glucose (60-115) mg/dL Calcium (8.4-10.2) mg/dL Magnesium (1.6-2.6) mg/dL Total Bilirubin (0.0-1.0) mg/dL Direct Bilirubin (0.0-0.5) mg/dL AST (5-31) U/L ALT (0-31) U/L Alkaline Phosphatase (39-117) U/L Troponin I High Sens (<3.5-17.0) ng/L Total Protein (6.5-8.0) g/dL Albumin (3.5-5.0) g/dL 10/29/22 10/29/22 10/29/22 Range/Units 19:00 19:00 19:00 WBC (4.8-10.8) X10*3/uL RBC (4.20-5.50) X10*6/uL Hgb (12.0-16.0) g/dl Hct (37.0-47.0) % MCV (80.0-98.0) fL MCH (27.0-33.0) pg MCHC (31.0-35.0) g/dl RDW (11.0-16.0) % Plt Count (160-400) X10*3/uL MPV (9.4-12.3) fL Immature Gran % (Auto) (0.0-0.4) % Neut % (Auto) (45-73) % Lymph % (Auto) (20-40) % [place] % (Auto) (2-11) % Eos % (Auto) (0-4) % Baso % (Auto) (0-2) % Lymph # (Auto) (1.2-4.9) X10*3/uL [place] # (Auto) (0.1-1.2) X10*3/uL Eos # (Auto) (0.0-0.4) X10*3/uL Baso # (Auto) (0.0-0.2) X10*3/uL Abs Immat Gran (auto) (0.00-0.03) X10*3/uL Absolute Neuts (auto) (2.0-8.3) x10*3/uL Absolute Nucleated RBC (0.0-0.012) X10*3/uL Nucleated RBC % (auto) (0.0-0.2) /100WBC PT 10.9 (10.0-13.1) SEC Whole Blood PT (11.1-13.5) sec INR 1.0 (0.9-1.1) Whole Blood INR (0.9-1.1) Sodium 139 (135-145) mmol/L Potassium 4.8 D (3.3-5.1) mmol/L Chloride 103 (96-108) mmol/L Carbon Dioxide 28 (22-29) mmol/L Anion Gap 13 (12-20) BUN 13 (9-16) mg/dL Creatinine 0.84 (0.5-1.4) mg/dL Estim Creat Clear Calc 87.6 Estimated GFR > 60 POC Glucose (60-115) mg/dL Random Glucose 111 (60-115) mg/dL Calcium 8.8 (8.4-10.2) mg/dL Magnesium 2.1 (1.6-2.6) mg/dL Total Bilirubin 0.4 (0.0-1.0) mg/dL Direct Bilirubin 0.1 (0.0-0.5) mg/dL AST 11 (5-31) U/L ALT 15 (0-31) U/L Alkaline Phosphatase 84 (39-117) U/L Troponin I High Sens < 2.7 (<3.5-17.0) ng/L Total Protein 6.6 (6.5-8.0) g/dL Albumin 4.0 (3.5-5.0) g/dL <Keya Wagner MD - Last Filed: 10/29/22 19:59> Independent Interpretation I performed an independent interpretation of an: EKG <Keya Wagner MD - Last Filed: 10/29/22 19:59> Interpretation: Sinus rhythm, HR-79, no STEMI, CA/QRS/QTC are within normal limits. <Keya Wagner MD - Last Filed: 10/29/22 19:59> Radiology Impression Discussion of test interpretation with radiology: I discussed test interpretation with the radiologist <Keya Wagner MD - Last Filed: 10/29/22 19:59> Radiologist Impression: My interpretation is in agreement with radiology's impression of the imaging studies. <Keya Wagner MD - Last Filed: 10/29/22 19:59> External Record Review External record reviewed: Inpatient record, Outpatient record and Prior outpatient labs <Keya Wagner MD - Last Filed: 10/29/22 19:59> Chronic Conditions Patient?s care impacted by: Hypertension <Keya Wagner MD - Last Filed: 10/29/22 19:59> NIH Stroke Scale Internal: Initial- Upon Arrival <Keya Wagner MD - Last Filed: 10/29/22 19:59> Level of Consciousness: Alert <Keya Wagner MD - Last Filed: 10/29/22 19:59> Level of Consciousness Questions: Answers both questions correctly <Keya Wagner MD - Last Filed: 10/29/22 19:59> Level of Consciousness Commands: Performs both tasks correctly <Keya Wagner MD - Last Filed: 10/29/22 19:59> Best Gaze: Normal <Keya Wagner MD - Last Filed: 10/29/22 19:59> Visual: Partial hemianopia <Keya Wagner MD - Last Filed: 10/29/22 19:59> Facial Palsy: Normal <Keya Wagner MD - Last Filed: 10/29/22 19:59> Motor Arm (Right): No drift <Keya Wagner MD - Last Filed: 10/29/22 19:59> Motor Arm (Left): No drift <Keya Wagner MD - Last Filed: 10/29/22 19:59> Motor Leg (Right): No drift <Keya Wagner MD - Last Filed: 10/29/22 19:59> Motor Leg (Left): No drift <Keya Wagner MD - Last Filed: 10/29/22 19:59> Limb Ataxia: Absent <Keya Wagner MD - Last Filed: 10/29/22 19:59> Sensory: Normal <Keya Wagner MD - Last Filed: 10/29/22 19:59> Best Language: No aphasia <Keya Wagner MD - Last Filed: 10/29/22 19:59> Dysarthia: Normal <Keya Wagner MD - Last Filed: 10/29/22 19:59> Extinction and Inattention: No abnormality <Keya Wagner MD - Last Filed: 10/29/22 19:59> Score: 1 <Keya Wagner MD - Last Filed: 10/29/22 19:59> Discharge Plan Discharge Clinical Impression: Hypertensive emergency, Headache, Blurred vision <WENDY Betancourt - Last Filed: 10/29/22 18:10> Patient Disposition: Admitted As Inpatient <WENDY Betancourt - Last Filed: 10/29/22 18:10> Prescriptions: No Action ibuprofen 800 mg tablet 800 mg PO Q8H PRN (Reason: pain) 30 Days Qty: 90 3RF ketotifen fumarate 0.025 % (0.035 %) drops hydroxyzine pamoate 50 mg capsule 1 cap PO DAILY PRN (Reason: Anxiety) trazodone 150 mg tablet 1 tab PO BEDTIME hydrochlorothiazide 25 mg tablet 25 mg PO QAM Qty: 30 0RF amlodipine [Norvasc] 5 mg tablet 5 mg PO DAILY Qty: 30 0RF uvaksinusx-krgfqjqssthqe-cfll [Fioricet] 50-300-40 mg capsule 1 cap PO Q8H PRN (Reason: headache) Qty: 14 0RF lisinopril 40 mg tablet 40 mg PO DAILY Qty: 30 0RF aspirin 81 mg capsule 81 mg PO DAILY Qty: 60 0RF atorvastatin [Lipitor] 40 mg tablet 40 mg PO BEDTIME Qty: 30 0RF hydrochlorothiazide 50 mg tablet 50 mg PO DAILY Qty: 20 0RF cyclobenzaprine 5 mg tablet 5 mg PO TID PRN (Reason: muscle spasm) 7 Days Qty: 21 0RF ibuprofen 800 mg tablet 800 mg PO Q8H PRN (Reason: pain) Qty: 14 0RF hydrocodone-acetaminophen 5-325 mg tablet 1 tab PO DAILY PRN (Reason: pain) Qty: 7 0RF Rx Instructions: Partial Fill upon patient request. naproxen 500 mg tablet 500 mg PO BID Qty: 60 2RF diclofenac sodium 75 mg tablet,delayed release (DR/EC) 75 mg PO BID furosemide 20 mg tablet 20 mg PO DAILY doxazosin 4 mg tablet 4 mg PO BEDTIME gabapentin 100 mg capsule 100 mg PO BEDTIME amlodipine 10 mg tablet 10 mg PO DAILY <WENDY Betancourt - Last Filed: 10/29/22 18:10>
--- NOTE | 2022-10-29 18:07 | ECG_ITS ---
Test Reason : ?STROKE Blood Pressure : / mmHG Vent. Rate : 079 BPM Atrial Rate : 079 BPM P-R Int : 166 ms QRS Dur : 072 ms QT Int : 402 ms P-R-T Axes : 060 005 040 degrees QTc Int : 460 ms Normal sinus rhythm Normal ECG When compared with ECG of 08-MAY-2021 20:48, No significant change was found Referred By: Janny Kelly Electronically Signed By:VICTOR HUGO ELDER MD
--- NOTE | 2022-10-29 18:29 | PC.NURSE ---
Patient presents stating that she is experiencing S/S of a stroke. Patient had a stroke approximately 2 years ago. Patient woke this morning with dizziness, feeling unbalanced when she walks, and that her vision is more blurry than usual. BP noted to be high but patient denying missing any of her blood pressure medication. Upon exam patient is able to move all extremities but her right eye is much more blurry than the left to the point that the patient is unable to see when only looking with that eye.
[2022-10-29 18:30] LABS: Glucose, Whole Blood 110 mg/dL (60-115)
[2022-10-29 18:34] LABS: Prothrombin Time Whole Bld POC 11.3 sec (11.1-13.5); ~PT, ~INR - Anti Coag Clinic 0.9 (0.9-1.1)
[2022-10-29] MEDS: iohexoL 350 MG/ML 100 ML INFUS..BTL IV (18:37)
[2022-10-29] MEDS: Labetalol HCL 100 MG/20 ML VIAL IVPUSH (18:44)
[2022-10-29 19:10] LABS: MANUAL DIFF FLAG NO
[2022-10-29 19:28] LABS: Basophils Percent Auto 0.5 % (0-2); Eosinophils Absolute Auto 0.1 X10*3/uL (0.0-0.4); Eosinophils Percent Auto 1.2 % (0-4); Hematocrit 39.2 % (37.0-47.0); Hemoglobin 12.9 g/dl (12.0-16.0); Imm Gran Abs Auto 0.03 X10*3/uL (0.00-0.03); Imm Gran Pct Auto 0.4 % (0.0-0.4); Lymphocytes Absolute Auto 1.5 X10*3/uL (1.2-4.9); Lymphocytes Percent Auto 19.7 % (20-40); Mean Corpuscular HGB Conc 32.9 g/dl (31.0-35.0); Mean Corpuscular Hemoglobin 26.9 pg (27.0-33.0); Mean Corpuscular Volume 81.7 fL (80.0-98.0); Mean Platelet Volume 9.6 fL (9.4-12.3); Monocytes Absolute Auto 0.4 X10*3/uL (0.1-1.2); Monocytes Percent Auto 5.7 % (2-11); Neutrophils Absolute Auto 5.5 x10*3/uL (2.0-8.3); Neutrophils Percent Auto 72.5 % (45-73); Platelet Count 299 X10*3/uL (160-400); Red Cell Distribution Width 14.1 % (11.0-16.0); White Blood Count 7.5 X10*3/uL (4.8-10.8)
[2022-10-29 19:31] LABS: Prothrombin Time 10.9 SEC (10.0-13.1)
[2022-10-29 19:33] LABS: Alanine Aminotransferase 15 U/L (0-31); Alkaline Phosphatase 84 U/L (39-117); Anion Gap 13 (12-20); Aspartate Amino Transferase 11 U/L (5-31); Bilirubin Direct 0.1 mg/dL (0.0-0.5); Bilirubin Total 0.4 mg/dL (0.0-1.0); Blood Urea Nitrogen 13 mg/dL (9-16); Calcium 8.8 mg/dL (8.4-10.2); Carbon Dioxide 28 mmol/L (22-29); Chloride 103 mmol/L (96-108); Creatinine Clr Calc Pharmacy 87.6; Estimated Glomerular Filt Rate > 60; Glucose Random 111 mg/dL (60-115); Magnesium 2.1 mg/dL (1.6-2.6); Potassium 4.8 mmol/L (3.3-5.1); Sodium 139 mmol/L (135-145); Total Protein 6.6 g/dL (6.5-8.0)
[2022-10-29 19:40] LABS: Troponin-I High Sensitivity < 2.7 ng/L (<3.5-17.0)
--- NOTE | 2022-10-29 20:14 | PHA.MEDREC ---
Addendum entered by Kayy Pizarro RPh 10/30/22 09:33: Confirmed with pharmacy that patient is still taking furosemide. Added to home med list and provider notified. Original Note: Pharmacy Consult ? Medication Reconciliation Pharmacy has completed the medication reconciliation.
[2022-10-29] MEDS: Nitroglycerin 2 % Oint 1 GM Packet 1 INCH TRANSDERMA (20:20)
[2022-10-29] MEDS: Labetalol HCL 100 MG/20 ML VIAL 10 MG IVPUSH (20:21)
--- NOTE | 2022-10-29 20:25 | PM.IMHP ---
History of Present Illness Date of Service: 10/29/22 Attending physician on admission: Darren Pro Chief Complaint: headache, dizziness 51-year-old female with history of hypertension, depression, history of multiple CVA, and depression/anxiety presented to the ED for evaluation of headache, feeling of off-balance, right eye blurred vision that started around 10:00 this morning. She states the symptoms were constant for about 3 hours and are now more intermittent. Describes a right-sided throbbing headache with associated blurred vision in the right eye I. There is also a room spinning sensation that causes her to feel off balance but denies any near syncope or falls. She denies any unilateral paresthesias, weakness, dysphagia, slurred speech, facial droop. On arrival, patient in hypertensive emergency with blood pressures persistently elevated up to 211/104 treated wtih 15mg IV labetalol, 1 inch nitro paste, SBP now 180. She reports compliance with all of her medications, including antihypertensive agents. Has been taking ibuprofen but has not taken in 3 days. Checks BP at home and states it is consistently elevated. Labs unremarkable. Head CT without acute intracranial abnormality. CTA of the head/neck showing progressive short-segment high-grade stenosis of the A2 segment of the right anterior cerebral artery with immediate distal vessel reconstitution and preserve contrast filling of the remainder of the right ASHLEY complex. No other new or progressive arterial high-grade stenosis are LV 0 compared to prior imaging. CXR negative. EKG NSR, rate 79. Review of Systems Review of Systems: Yes all other systems are reviewed and are negative [facility] Medical History Abnormal Pap smear of cervix CVA (cerebral vascular accident) Depression FH: breast cancer in first degree relative HTN (hypertension) Hypertension Ovarian cyst TIA (transient ischemic attack) Family History Paternal Aunt Breast cancer Sister Breast cancer, Onset Age: 46 Surgical History H/O prior ablation treatment History of removal of ovarian cyst Hx of tubal ligation Social History Household Members: Family Housing: Apartment Do you presently have visiting nurse or other home services: No Alcohol intake: never Patient Tobacco Use Status: Never used Tobacco Smoked in Last 30 Days: No Use of substances other than those prescribed or required for medical reasons: No Advance Directives: Yes Advance Directives on File: Yes Advance Directives Date on File: 05/09/21 Current occupational status: unemployed and retired Gender identity: Female Meds Allergies Allergy/AdvReac Type Severity Reaction Status Date / Time No Known Allergies Allergy Verified 10/03/22 10:52 [No Known Allergies*] Active Medications: Current Medications Pharmacy Consult (Consult Rx Perform Med Rec) 1 each MISCELLANE ONCE PRN PRN Reason: Consult order Home Medications Medication Instructions Recorded Confirmed Last Taken Type trazodone 150 mg tablet 1 tab PO BEDTIME 05/08/21 10/29/22 10/28/22 History amlodipine 10 mg tablet 10 mg PO DAILY 05/27/22 10/29/22 10/29/22 History diclofenac sodium 75 mg 75 mg PO BID 05/27/22 10/29/22 10/28/22 History tablet,delayed release doxazosin 4 mg tablet 4 mg PO BEDTIME 05/27/22 10/29/22 10/28/22 History furosemide 20 mg tablet 20 mg PO DAILY 05/27/22 06/26/22 Unknown History atorvastatin 80 mg tablet 80 mg PO BEDTIME 10/29/22 10/29/22 10/28/22 History gabapentin 300 mg capsule 300 mg PO BEDTIME 10/29/22 10/29/22 10/28/22 History hydroxyzine HCl 50 mg tablet 50 mg PO BEDTIME 10/29/22 10/29/22 10/28/22 History lisinopril 20 2 tab PO DAILY 10/29/22 10/29/22 10/29/22 History mg-hydrochlorothiazide 25 mg tablet sertraline 50 mg tablet 50 mg PO DAILY 10/29/22 10/29/22 10/29/22 History Physical Exam Vital Signs and Narrative: Vital Signs: Last Vital Signs Temp 98.4 F 10/29/22 19:37 Pulse 83 10/29/22 19:41 Resp 18 10/29/22 19:37 BP 211/104 H 10/29/22 19:41 Pulse Ox 94 10/29/22 19:37 O2 Del Method Room Air 10/29/22 19:37 BMI result Body Mass Index 30.7 Constitutional - Awake and Alert, No apparent distress Eyes - PERRLA, EOMI Cardiovascular - S1S2, RRR, No edema Respiratory - Normal lung expansion, Normal respiratory effort, No respiratory distress, CTA bilaterally Gastrointestinal - NT / ND; +BS; No rebound or guarding Extremities - no calf tenderness bilaterally, no swelling Skin - Warm/Dry Neurological - Alert & oriented x3, CN II-XII in tact, 5/5 strength BUE and BLE, negative pronator drift Psychological - Appropriate affect Results Labs 10/29/22 19:00 10/29/22 19:00 Labs: Laboratory Results - last 24 hr 10/29/22 10/29/22 10/29/22 18:25 18:27 19:00 MCV 81.7 MCH 26.9 L MCHC 32.9 RDW 14.1 Plt Count 299 MPV 9.6 Immature Gran % (Auto) 0.4 Neut % (Auto) 72.5 Lymph % (Auto) 19.7 L [place] % (Auto) 5.7 Eos % (Auto) 1.2 Baso % (Auto) 0.5 Lymph # (Auto) 1.5 [place] # (Auto) 0.4 Eos # (Auto) 0.1 Baso # (Auto) 0.0 Abs Immat Gran (auto) 0.03 Absolute Neuts (auto) 5.5 Absolute Nucleated RBC 0.000 Nucleated RBC % (auto) 0.0 PT Whole Blood PT 11.3 INR Whole Blood INR 0.9 Anion Gap Estim Creat Clear Calc Estimated GFR POC Glucose 110 Random Glucose Calcium Magnesium Total Bilirubin Direct Bilirubin AST ALT Alkaline Phosphatase Troponin I High Sens Total Protein Albumin 10/29/22 10/29/22 10/29/22 19:00 19:00 19:00 MCV MCH MCHC RDW Plt Count MPV Immature Gran % (Auto) Neut % (Auto) Lymph % (Auto) Assumption % (Auto) Eos % (Auto) Baso % (Auto) Lymph # (Auto) Assumption # (Auto) Eos # (Auto) Baso # (Auto) Abs Immat Gran (auto) Absolute Neuts (auto) Absolute Nucleated RBC Nucleated RBC % (auto) PT 10.9 Whole Blood PT INR 1.0 Whole Blood INR Anion Gap 13 Estim Creat Clear Calc 87.6 Estimated GFR > 60 POC Glucose Random Glucose 111 Calcium 8.8 Magnesium 2.1 Total Bilirubin 0.4 Direct Bilirubin 0.1 AST 11 ALT 15 Alkaline Phosphatase 84 Troponin I High Sens < 2.7 Total Protein 6.6 Albumin 4.0 Imaging Radiologist's Impressions: Impressions Chest X-Ray 10/29/22 18:19 IMPRESSION: No acute cardiopulmonary process. Head CT 10/29/22 18:31 IMPRESSION: No acute intracranial pathology. This critical result was discussed with Dr Wagner at 1840 hours on 10/29/2022. It was ascertained that the content and urgency of the report was understood at the time of direct communication. Head/Neck CTA 10/29/22 18:38 IMPRESSION: 1. Progressive short segment high-grade stenosis of the A2 segment of the right anterior cerebral artery with immediate distal vessel reconstitution and preserved contrast filling of the remainder of the right ASHLEY complex. 2. No other new or progressive arterial high-grade stenosis or large vessel occlusion in the head or neck compared to CTA from 05/09/2021. There is improved caliber of the right P1 P2 junction with mild to moderate residual stenosis. Above impression was communicated to Dr Wagner on 10/29/2022 at 7:02 PM Assessment and Plan (1) Hypertensive emergency: Status: Acute Plan 51-year-old female with history of hypertension, depression, history of multiple CVA, and depression/anxiety admitted for hypertensive emergency. #Hypertensive emergency -Head CT and CTA head/neck without evidence acute CVA. Low suspicion given presenting symptoms -Reports refractory htn at home despite compliance with amlodipine 10, lisinopril 40, hctz 50 -Treated with 15mg IV labetalol, 1 inch nitro paste -Add coreg 3.125mg BID. Continue home antihypertensives -Plasma renin/aldosterone ordered -Renal doppler ordered to r/o MARCK -Echo ordered -Monitor BP q2h until stable -Appreciate cardiology input #History CVA -Continue statin. Add asa #Depression/anxiety -continue home meds DVT prophylaxis- lovenox Full code Patient requires inpatient stay of at least 2 midnights for management of hypertensive emergency requiring IV antihypertensives and nitroglycerin to manage blood pressure and requires close blood pressure monitoring to prevent cardiovascular decompensation or event that cannot be achieved in an outpatient setting. Time Spent With Patient Time: Total time managing care of this patient today ____ minutes. Quality Stroke Does the patient have a stroke diagnosis?: No VTE Prior VTE?: No VTE Risk Level:: Medical - moderate - high VTE Device Contraindication: Treatment Not Indicated VTE Drug Contraindication: N/A - Med Ordered
[2022-10-29] MEDS: hydrALAZINE HCl 20 MG/ML VIAL 10 MG IVPUSH (20:53)
[2022-10-29] MEDS: carvediloL 3.125 MG TABLET PO (21:10)
[2022-10-29] MEDS: Doxazosin Mesylate 2 MG TABLET 4 MG PO (21:10)
[2022-10-29] MEDS: Atorvastatin Calcium 80 MG TABLET PO (21:11)
[2022-10-29] MEDS: Gabapentin 300 MG CAPSULE PO (21:11)
[2022-10-29] MEDS: traZODone HCL 50 MG TABLET 150 MG PO (21:11)
[2022-10-29] MEDS: hydrOXYzine HCL 50 MG TABLET PO (21:11)
[2022-10-29] MEDS: Enoxaparin Sodium 40 MG/0.4 ML SYRINGE SUBCUT (21:11)
[2022-10-29 23:47] LABS: COVID-19 Test Negative (Negative); IDNOW Serial# BCCEAD1C
[2022-10-30] VITALS (7 sets, daily range): BP systolic 98–164; BP diastolic 42–83; PULSE 60–83; RESP 15–21; TEMP 36–36.8; O2SAT 91–100; BMI 32.5
[2022-10-30 01:22] LABS: Appearance Urine Clear; Color Urine Yellow; Glucose Urine UA Negative (Negative); Leukocyte Esterase Urine Negative (Negative); Nitrite Urine Negative (Negative); Specific Gravity - Urine 1.025 (1.005-1.025); Urine Blood Negative (Negative); Urine Ketones Negative (Negative); Urine Protein Negative (Neg-Trace)
--- NOTE | 2022-10-30 03:00 | PC.NURSE ---
nitro paste d/c per Dr. Pro
--- NOTE | 2022-10-30 07:00 | CA_ITS ---
Transthoracic Echocardiogram Patient (Last, First, Middle): Michelle Yoon, Gender: Female Date of : 1970 Age: 51 Procedure Date: 10/30/2022 Procedure Type: Transthoracic Echocardiogram Location: [facility] [place] Height: 167.64 cm Weight: 86.18 kg BSA: 1.96 m2 Heart Rate: 56 bpm BP: 129 / 58 mmHg Lead Oracle Developer: SB Referring MD: Maura NGUYEN Safe Technician: Marlo Lantigua MD Symptoms: hypertensive emergency Study Quality: Fair but adequate ECG Rhythm: Bradycardia Conclusions: - Essentially normal study Findings Left Ventricle Normal left ventricular size, thickness, and systolic function. The visually estimated ejection fraction is between 60-65%. Spectral Doppler is indicative of a normal filling pattern. Right Ventricle Normal right ventricular cavity size and systolic function. Atria Both atria are normal in size. There is no evidence of interatrial shunt. Aortic Valve Normal aortic valve structure and function. There is no aortic valve stenosis. There is no aortic valve regurgitation. Mitral Valve Normal mitral valve structure and function. There is trace mitral valve regurgitation. There is no mitral valve stenosis. Pulmonic Valve The pulmonic valve is likely normal. Tricuspid Valve Normal tricuspid valve structure. There is trace tricuspid valve regurgitation. The right ventricular systolic pressure is normal. The right ventricular systolic pressure is 30 mmHg. Normal right atrial pressure. There is no evidence of pulmonary hypertension. Great Vessels All visible segments of the aorta are normal in size. The pulmonary artery was not well visualized. Venous The inferior vena cava is normal in size and collapses greater than 50% with inspiration. Pericardium/Pleural There is no evidence of pericardial effusion. Prior Study Comparison No significant change compared to prior study dated: 05/10/2021. Measurements 2D Linear Measurements IVSd: 0.93 0.6-0.9/0.6-1.0 cm LVIDd: 4.61 3.9-5.3/4.2-5.9 cm LVIDd Index: 2.35 2.4-3.2/2.2-3.1 cm/m2 LVIDs: 2.88 2.0-3.6 cm LVPWd: 0.69 0.7-1.1 cm LA Diam: 4.00 2.7-3.8/3.0-4.0 cm LAIDs Index: 2.04 1.5-2.3 cm/m2 LV Mass: 150.56 67-162/88-224 g LV Mass Index: 76.81 43-95/49-115 g/m2 LVOT Diam: 2.10 3.0+(-)1.3 cm 2D Systolic Function EF 4C: 59.50 >55% EF 2C: 59.50 >55% EF BiP: 60.80 >55% Mitral Valve MV Pk E: 1.10 MV PK A: 0.72 MV Decel Time: 249.00 E/A: 1.50 E'Lateral: 6.42 E'Medial: 6.96 E/E' Med: 15.80 E/E' Lat: 17.10 PHT: 73.00 MVA PHT: 3.01 Decel [place]: 4.42 Aortic Valve AoV Pk Miguel: 1.40 AoV Mn Miguel: 0.95 AoV VTI: 0.33 AoV Pk Grad: 8.00 Aov Mn Grad: 4.00 TEJ Cont.VTI: 2.62 LVOT LVOT Pk Miguel: 0.99 LVOT Mn Miguel: 0.75 LVOT VTI: 0.25 LVOT Pk Grad: 4.00 LVOT Mn Grad: 2.00 LVOT Diam: 2.10 LVOT Area: 3.46 Diastolic Function MV Pk E: 1.10 MV Pk A: 0.72 E/A: 1.50 E'Medial: 6.96 E/E' Med: 15.80 E' Laterial: 6.42 E/E' Lat: 17.10 Right Ventricle TAPSE (mm): 30.90 TVS' Miguel: 12.00 Tricuspid Valve TR Pk Miguel: 2.59 TR Pk Grad: 27.00 RA Press: 3.00 RVSP: 30.00 Great Vessels Aorta Sinus of Valsalva: 2.90 2.0-3.5 cm Ao Asc: 3.20 2.1-3.4 cm Pulmonary Veins Pulm Vein S/D 1.50 Pulmonary Valve PV Pk Miguel: 0.91 Peak PV Grad: 3.00 Updated in Other Vendor System with Status of Final Marlo Lantigua MD electronically signed on 10/30/2022 12:57:42 PM with status of Final
--- NOTE | 2022-10-30 07:01 | PC.NURSE ---
pt had a swallow eval prior to taking oral medications
[2022-10-30] MEDS: Acetaminophen 325 MG TABLET 650 MG PO ×2 (07:57→17:08)
[2022-10-30] MEDS: Docusate Sodium 100 MG CAPSULE PO (07:58)
[2022-10-30] MEDS: Sertraline HCL 50 MG TABLET PO (07:58)
[2022-10-30] MEDS: Aspirin Enteric Coated 81 MG TABLET.DR PO (07:59)
[2022-10-30] MEDS: amLODIPine Besylate 10 MG TABLET PO (08:27)
[2022-10-30] MEDS: carvediloL 3.125 MG TABLET PO ×2 (08:27→20:23)
[2022-10-30 09:08] LABS: MANUAL DIFF FLAG NO
[2022-10-30 09:13] LABS: Basophils Percent Auto 0.6 % (0-2); Eosinophils Absolute Auto 0.1 X10*3/uL (0.0-0.4); Eosinophils Percent Auto 1.5 % (0-4); Hematocrit 38.7 % (37.0-47.0); Hemoglobin 12.6 g/dl (12.0-16.0); Imm Gran Abs Auto 0.03 X10*3/uL (0.00-0.03); Imm Gran Pct Auto 0.4 % (0.0-0.4); Lymphocytes Percent Auto 27.4 % (20-40); Mean Corpuscular HGB Conc 32.6 g/dl (31.0-35.0); Mean Corpuscular Hemoglobin 26.5 pg (27.0-33.0); Mean Corpuscular Volume 81.3 fL (80.0-98.0); Mean Platelet Volume 9.9 fL (9.4-12.3); Monocytes Absolute Auto 0.5 X10*3/uL (0.1-1.2); Monocytes Percent Auto 6.8 % (2-11); Neutrophils Absolute Auto 4.6 x10*3/uL (2.0-8.3); Neutrophils Percent Auto 63.3 % (45-73); Platelet Count 287 X10*3/uL (160-400); Red Blood Count 4.76 X10*6/uL (4.20-5.50); Red Cell Distribution Width 14.2 % (11.0-16.0); White Blood Count 7.2 X10*3/uL (4.8-10.8)
[2022-10-30 09:25] LABS: Anion Gap 12 (12-20); Blood Urea Nitrogen 14 mg/dL (9-16); Carbon Dioxide 27 mmol/L (22-29); Chloride 104 mmol/L (96-108); Creatinine Clr Calc Pharmacy 93.5; Estimated Glomerular Filt Rate > 60; Glucose Random 101 mg/dL (60-115); Potassium 4.4 mmol/L (3.3-5.1); Sodium 139 mmol/L (135-145)
--- NOTE | 2022-10-30 10:59 | MHC.CM.PN ---
CM met Patient at bedside with the assist of a Manager Distribution. Patient lives in an apartment with her Daughter and she required no services nor DME SKILLED HELPER. Home/self care is the tentative plan and CM has initiated and will follow for dc planning. Patient has received Quack/Agrivi vax x2 and her PCP is Dr. Ani Bright.
--- NOTE | 2022-10-30 13:47 | HO.PM.IMPN ---
Subjective Subjective Date of Service: 10/30/22 Interval History: Pressures improving; no acute issue Review of Systems Denies chest pain Denies shortness of breath Denies nausea vomiting diarrhea Denies fever chills Physical Exam Vital Signs: Vital Signs: Last Vital Signs Temp 96.8 F 10/30/22 11:06 Pulse 83 10/30/22 11:06 Resp 16 10/30/22 11:06 BP 130/80 10/30/22 11:06 Pulse Ox 98 10/30/22 11:06 O2 Del Method Room Air 10/30/22 11:06 BMI result Body Mass Index 32.5 Const: Other: No acute issues Resp: Other: Clear to auscultation bilaterally nose rales rhonchi or wheezes Cardio: Other: No S4; positive S1-S2; no S3 murmurs rubs or gallops Extrem: Other: No edema bilaterally Objective Data Active Medications Acetaminophen (Acetaminophen 325 Mg Tablet) 650 mg PO Q6H PRN PRN Reason: Pain, Mild (Pain Scale 1-3) Last Admin: 10/30/22 07:57 Dose: 650 mg Documented By: LOBO Amlodipine Besylate (Amlodipine Besylate 10 Mg Tablet) 10 mg PO DAILY [facility]; Protocol Last Admin: 10/30/22 08:27 Dose: 10 mg Documented By: LOBO Aspirin (Aspirin Enteric Coated 81 Mg Tablet.) 81 mg PO DAILY [facility] Last Admin: 10/30/22 07:59 Dose: 81 mg Documented By: LOBO Atorvastatin Calcium (Atorvastatin Calcium 80 Mg Tablet) 80 mg PO BEDTIME [facility] Last Admin: 10/29/22 21:11 Dose: 80 mg Documented By: MARY Carvedilol (Carvedilol 3.125 Mg Tablet) 3.125 mg PO BID [facility]; Protocol Last Admin: 10/30/22 08:27 Dose: 3.125 mg Documented By: LOBO Lisinopril 40 mg/ (Hydrochlorothiazide 50 mg) 0 mg PO DAILY [facility] Last Admin: 10/30/22 08:26 Dose: 3 tablet Documented By: LOBO Docusate Sodium (Docusate Sodium 100 Mg Capsule) 100 mg PO DAILY PRN PRN Reason: Constipation Last Admin: 10/30/22 07:58 Dose: 100 mg Documented By: LOBO Doxazosin Mesylate (Doxazosin Mesylate 2 Mg Tablet) 4 mg PO BEDTIME [facility]; Protocol Last Admin: 10/29/22 21:10 Dose: 4 mg Documented By: MARY Enoxaparin Sodium (Enoxaparin Sodium 40 Mg/0.4 Ml Syringe) 40 mg SUBCUT Q24H [facility] Last Admin: 10/29/22 21:11 Dose: 40 mg Documented By: MARY Gabapentin (Gabapentin 300 Mg Capsule) 300 mg PO BEDTIME [facility] Last Admin: 10/29/22 21:11 Dose: 300 mg Documented By: MARY Hydroxyzine HCl (Hydroxyzine Hcl 50 Mg Tablet) 50 mg PO BEDTIME [facility] Last Admin: 10/29/22 21:11 Dose: 50 mg Documented By: MARY Ondansetron HCl (Ondansetron Hcl 4 Mg/2 Ml Vial) 4 mg IVPUSH Q8H PRN PRN Reason: Nausea and Vomiting Pharmacy Consult (Consult Rx Perform Med Rec) 1 each MISCELLANE ONCE PRN PRN Reason: Consult order Sertraline HCl (Sertraline Hcl 50 Mg Tablet) 50 mg PO DAILY [facility] Last Admin: 10/30/22 07:58 Dose: 50 mg Documented By: LOBO Trazodone HCl (Trazodone Hcl 50 Mg Tablet) 150 mg PO BEDTIME [facility] Last Admin: 10/29/22 21:11 Dose: 150 mg Documented By: MARY Labs 10/30/22 08:16 10/30/22 08:16 Labs: Laboratory Results - last 24 hr 10/29/22 10/29/22 10/29/22 18:25 18:27 19:00 MCV 81.7 MCH 26.9 L MCHC 32.9 RDW 14.1 Plt Count 299 MPV 9.6 Immature Gran % (Auto) 0.4 Neut % (Auto) 72.5 Lymph % (Auto) 19.7 L [place] % (Auto) 5.7 Eos % (Auto) 1.2 Baso % (Auto) 0.5 Lymph # (Auto) 1.5 [place] # (Auto) 0.4 Eos # (Auto) 0.1 Baso # (Auto) 0.0 Abs Immat Gran (auto) 0.03 Absolute Neuts (auto) 5.5 Absolute Nucleated RBC 0.000 Nucleated RBC % (auto) 0.0 PT Whole Blood PT 11.3 INR Whole Blood INR 0.9 Anion Gap Estim Creat Clear Calc Estimated GFR POC Glucose 110 Random Glucose Calcium Magnesium Total Bilirubin Direct Bilirubin AST ALT Alkaline Phosphatase Troponin I High Sens Total Protein Albumin TSH Urine Color Urine Appearance Urine pH Ur Specific [place] Urine Protein Urine Glucose (UA) Urine Ketones Urine Blood Urine Nitrite Ur Leukocyte Esterase COVID-19 ([facility]) COVID-19 Clin Com 10/29/22 10/29/22 10/29/22 19:00 19:00 19:00 MCV MCH MCHC RDW Plt Count MPV Immature Gran % (Auto) Neut % (Auto) Lymph % (Auto) [place] % (Auto) Eos % (Auto) Baso % (Auto) Lymph # (Auto) [place] # (Auto) Eos # (Auto) Baso # (Auto) Abs Immat Gran (auto) Absolute Neuts (auto) Absolute Nucleated RBC Nucleated RBC % (auto) PT 10.9 Whole Blood PT INR 1.0 Whole Blood INR Anion Gap 13 Estim Creat Clear Calc 87.6 Estimated GFR > 60 POC Glucose Random Glucose 111 Calcium 8.8 Magnesium 2.1 Total Bilirubin 0.4 Direct Bilirubin 0.1 AST 11 ALT 15 Alkaline Phosphatase 84 Troponin I High Sens < 2.7 Total Protein 6.6 Albumin 4.0 TSH Urine Color Urine Appearance Urine pH Ur Specific [place] Urine Protein Urine Glucose (UA) Urine Ketones Urine Blood Urine Nitrite Ur Leukocyte Esterase COVID-19 ([facility]AL) COVID-19 Clin Com 10/29/22 10/29/22 10/30/22 19:00 19:00 01:09 MCV MCH MCHC RDW Plt Count MPV Immature Gran % (Auto) Neut % (Auto) Lymph % (Auto) [place] % (Auto) Eos % (Auto) Baso % (Auto) Lymph # (Auto) [place] # (Auto) Eos # (Auto) Baso # (Auto) Abs Immat Gran (auto) Absolute Neuts (auto) Absolute Nucleated RBC Nucleated RBC % (auto) PT Whole Blood PT INR Whole Blood INR Anion Gap Estim Creat Clear Calc Estimated GFR POC Glucose Random Glucose Calcium Magnesium Total Bilirubin Direct Bilirubin AST ALT Alkaline Phosphatase Troponin I High Sens Total Protein Albumin TSH 1.10 Urine Color Yellow Urine Appearance Clear Urine pH 8.0 Ur Specific [place] 1.025 Urine Protein Negative Urine Glucose (UA) Negative Urine Ketones Negative Urine Blood Negative Urine Nitrite Negative Ur Leukocyte Esterase Negative COVID-19 ([facility]ANDAL) Negative COVID-19 Clin Com See Note 10/30/22 10/30/22 08:16 08:16 MCV 81.3 MCH 26.5 L MCHC 32.6 RDW 14.2 Plt Count 287 MPV 9.9 Immature Gran % (Auto) 0.4 Neut % (Auto) 63.3 Lymph % (Auto) 27.4 [place] % (Auto) 6.8 Eos % (Auto) 1.5 Baso % (Auto) 0.6 Lymph # (Auto) 2.0 [place] # (Auto) 0.5 Eos # (Auto) 0.1 Baso # (Auto) 0.0 Abs Immat Gran (auto) 0.03 Absolute Neuts (auto) 4.6 Absolute Nucleated RBC 0.000 Nucleated RBC % (auto) 0.0 PT Whole Blood PT INR Whole Blood INR Anion Gap 12 Estim Creat Clear Calc 93.5 Estimated GFR > 60 POC Glucose Random Glucose 101 Calcium 9.0 Magnesium Total Bilirubin Direct Bilirubin AST ALT Alkaline Phosphatase Troponin I High Sens Total Protein Albumin TSH Urine Color Urine Appearance Urine pH Ur Specific [place] Urine Protein Urine Glucose (UA) Urine Ketones Urine Blood Urine Nitrite Ur Leukocyte Esterase COVID-19 ([facility]) COVID-19 Clin Com Assessment and Plan (1) Hypertensive emergency: Status: Acute Plan 51-year-old female with history of hypertension, depression, history of multiple CVA, and depression/anxiety admitted for hypertensive emergency secondary to noncompliance 1.Hypertensive emergency (resolved) -Head CT and CTA head/neck without evidence acute CVA. Low suspicion given presenting symptoms -coreg 3.125mg BID. Continue home antihypertensives -follow renals/divalents 2.History CVA -Continue statin. Add asa lovenox Full code Patient requires ongoing hospitalization to titrate blood pressure medicine did not stabilized pressure Time Spent With Patient Time: Total time managing care of this patient today ____ minutes. Quality Stroke Does the patient have a stroke diagnosis?: No VTE Prior VTE?: No VTE Risk Level:: Medical - moderate - high VTE Device Contraindication: Treatment Not Indicated VTE Drug Contraindication: N/A - Med Ordered
--- NOTE | 2022-10-30 14:25 | P.CONCA_ITS ---
History of Present Illness History of Present Illness Date of Service: 10/30/22 Requesting physician: Sotero Yeung Consult reason: other (Hypertension) Chief complaint: hypertensive emergency Narrative: I was consulted to see Michelle in cardiology consultation today for management of hypertension and admission with hypertensive urgency. Patient has prior history of hypertension, depression, CVA or present hospital with headache and feeling of balance with blood vision in the right eye. She was noted to be markedly hypertensive in the emergency room with blood pressure up to 211/104. I did obtain history with help of developmental psychologist. She says she is extremely compliant with her medications occasionally forgets to take it but then usually takes with few hours later. Patient is on multiple antihypertensive agent. No recent increased salt intake in her diet. She a was required multiple IV medications in the emergency room and subsequently had hypotensive reaction. Patient was admitted because of acute neurologic symptoms and acutely elevated blood pressure. All her medications were restarted and she was also started on carved ilol therapy. A blood pressure currently is well controlled at 130/80. Patient underwent a CT scan of her head and subsequently CTA. There were no new acute neurologic lesions but was showing evidence of high-grade stenosis of the A2 segment of right anterior cerebral artery. Review of Systems Constitutional: Constitutional: Reports no additional constitutional complaints and Reports headache(s) Eyes: Eyes: Reports blurry vision ENT: Reports headache(s) and Reports disequilibrium Cardiovascular: Cardiovascular: Reports no additional cardiovascular complaints Respiratory: Respiratory: Reports no additional respiratory complaints Gastrointestinal: Gastrointestinal: Reports no additional gastrointestinal complaints Musculoskeletal: Musculoskeletal: Reports no additional musculoskeletal complaints Neurologic: Reports headache(s) and Reports disequilibrium Endocrine: Endocrine: Reports no additional endocrine complaints Hematologic/Lymphatic: Hematologic/Lymphatic: Reports no additional hematologic/lymphatic complaints [facility] Past Medical History Medical History Abnormal Pap smear of cervix CVA (cerebral vascular accident) Depression FH: breast cancer in first degree relative HTN (hypertension) Hypertension Ovarian cyst TIA (transient ischemic attack) Family History Family History Paternal Aunt Breast cancer Sister Breast cancer, Onset Age: 46 Surgical History Surgical History H/O prior ablation treatment History of removal of ovarian cyst Hx of tubal ligation Social History Social History Household Members: Children Housing: Apartment Do you presently have visiting nurse or other home services: No Alcohol intake: never Patient Tobacco Use Status: Never used Tobacco e-Cigarette/Vaping Use: Never Used Advance Directives Date on File: 05/09/21 service: No Current occupational status: disabled Gender identity: Female Meds Allergies Allergy/AdvReac Type Severity Reaction Status Date / Time No Known Allergies Allergy Verified 10/03/22 10:52 [No Known Allergies*] Active Medications: Current Medications Acetaminophen (Acetaminophen 325 Mg Tablet) 650 mg PO Q6H PRN PRN Reason: Pain, Mild (Pain Scale 1-3) Last Admin: 10/30/22 07:57 Dose: 650 mg Amlodipine Besylate (Amlodipine Besylate 10 Mg Tablet) 10 mg PO DAILY [facility]; Protocol Last Admin: 10/30/22 08:27 Dose: 10 mg Aspirin (Aspirin Enteric Coated 81 Mg Tablet.Dr) 81 mg PO DAILY [facility] Last Admin: 10/30/22 07:59 Dose: 81 mg Atorvastatin Calcium (Atorvastatin Calcium 80 Mg Tablet) 80 mg PO BEDTIME [facility] Last Admin: 10/29/22 21:11 Dose: 80 mg Carvedilol (Carvedilol 3.125 Mg Tablet) 3.125 mg PO BID [facility]; Protocol Last Admin: 10/30/22 08:27 Dose: 3.125 mg Lisinopril 40 mg/ (Hydrochlorothiazide 50 mg) 0 mg PO DAILY [facility] Last Admin: 10/30/22 08:26 Dose: 3 tablet Docusate Sodium (Docusate Sodium 100 Mg Capsule) 100 mg PO DAILY PRN PRN Reason: Constipation Last Admin: 10/30/22 07:58 Dose: 100 mg Doxazosin Mesylate (Doxazosin Mesylate 2 Mg Tablet) 4 mg PO BEDTIME [facility]; Protocol Last Admin: 10/29/22 21:10 Dose: 4 mg Enoxaparin Sodium (Enoxaparin Sodium 40 Mg/0.4 Ml Syringe) 40 mg SUBCUT Q24H [facility] Last Admin: 10/29/22 21:11 Dose: 40 mg Gabapentin (Gabapentin 300 Mg Capsule) 300 mg PO BEDTIME [facility] Last Admin: 10/29/22 21:11 Dose: 300 mg Hydroxyzine HCl (Hydroxyzine Hcl 50 Mg Tablet) 50 mg PO BEDTIME [facility] Last Admin: 10/29/22 21:11 Dose: 50 mg Ondansetron HCl (Ondansetron Hcl 4 Mg/2 Ml Vial) 4 mg IVPUSH Q8H PRN PRN Reason: Nausea and Vomiting Pharmacy Consult (Consult Rx Perform Med Rec) 1 each MISCELLANE ONCE PRN PRN Reason: Consult order Sertraline HCl (Sertraline Hcl 50 Mg Tablet) 50 mg PO DAILY [facility] Last Admin: 10/30/22 07:58 Dose: 50 mg Trazodone HCl (Trazodone Hcl 50 Mg Tablet) 150 mg PO BEDTIME [facility] Last Admin: 10/29/22 21:11 Dose: 150 mg Home Medications Medication Instructions Recorded Confirmed Last Taken Type trazodone 150 mg tablet 1 tab PO BEDTIME 05/08/21 10/29/22 10/28/22 History amlodipine 10 mg tablet 10 mg PO DAILY 05/27/22 10/29/22 10/29/22 History diclofenac sodium 75 mg 75 mg PO BID 05/27/22 10/29/22 10/28/22 History tablet,delayed release doxazosin 4 mg tablet 4 mg PO BEDTIME 05/27/22 10/29/22 10/28/22 History furosemide 20 mg tablet 20 mg PO DAILY 05/27/22 10/30/22 Unknown History atorvastatin 80 mg tablet 80 mg PO BEDTIME 10/29/22 10/29/22 10/28/22 History gabapentin 300 mg capsule 300 mg PO BEDTIME 10/29/22 10/29/22 10/28/22 History hydroxyzine HCl 50 mg tablet 50 mg PO BEDTIME 10/29/22 10/29/22 10/28/22 History lisinopril 20 2 tab PO DAILY 10/29/22 10/29/22 10/29/22 History mg-hydrochlorothiazide 25 mg tablet sertraline 50 mg tablet 50 mg PO DAILY 10/29/22 10/29/22 10/29/22 History Physical Exam Vital Signs: Vital Signs: Last Vital Signs Temp 96.8 F 10/30/22 11:06 Pulse 83 10/30/22 11:06 Resp 16 10/30/22 11:06 BP 130/80 10/30/22 11:06 Pulse Ox 98 10/30/22 11:06 O2 Del Method Room Air 10/30/22 11:06 BMI result Body Mass Index 32.5 Const: General: cooperative, comfortable, no acute distress, alert and awake Nutritional Appearance: overweight Orientation/consciousness: patient oriented x3 Limitations: no limitations HEENT: Head: Yes normocephalic and Yes atraumatic Neck: Neck: Yes trachea midline, Yes supple and Yes no JVD Resp: Effort & Inspection: normal respiratory effort Auscultation: clear to auscultation bilaterally Cardio: Jugular venous distension: no JVD Palpation: normal PMI Rate: regular rate Rhythm: regular rhythm Heart sounds: S1 normal heart sound present, S2 normal heart sound present, no click, no gallops, no murmurs and no rubs GI: Auscultation: normal bowel sounds Skin: General skin exam: no rashes or lesions noted Neuro: General: patient oriented x3 and no focal motor deficits Extrem: General: Yes no clubbing, cyanosis or edema Objective Labs and Meds 10/30/22 08:16 10/30/22 08:16 Lab results: Laboratory Results - last 24 hr 10/29/22 10/29/22 10/29/22 18:25 18:27 19:00 WBC 7.5 RBC 4.80 Hgb 12.9 Hct 39.2 MCV 81.7 MCH 26.9 L MCHC 32.9 RDW 14.1 Plt Count 299 MPV 9.6 Immature Gran % (Auto) 0.4 Neut % (Auto) 72.5 Lymph % (Auto) 19.7 L [place] % (Auto) 5.7 Eos % (Auto) 1.2 Baso % (Auto) 0.5 Lymph # (Auto) 1.5 [place] # (Auto) 0.4 Eos # (Auto) 0.1 Baso # (Auto) 0.0 Abs Immat Gran (auto) 0.03 Absolute Neuts (auto) 5.5 Absolute Nucleated RBC 0.000 Nucleated RBC % (auto) 0.0 PT Whole Blood PT 11.3 INR Whole Blood INR 0.9 Sodium Potassium Chloride Carbon Dioxide Anion Gap BUN Creatinine Estim Creat Clear Calc Estimated GFR POC Glucose 110 Random Glucose Calcium Magnesium Total Bilirubin Direct Bilirubin AST ALT Alkaline Phosphatase Troponin I High Sens Total Protein Albumin TSH Urine Color Urine Appearance Urine pH Ur Specific [place] Urine Protein Urine Glucose (UA) Urine Ketones Urine Blood Urine Nitrite Ur Leukocyte Esterase COVID-19 ([facility]) COVID-19 [employer] 10/29/22 10/29/22 10/29/22 19:00 19:00 19:00 WBC RBC Hgb Hct MCV MCH MCHC RDW Plt Count MPV Immature Gran % (Auto) Neut % (Auto) Lymph % (Auto) [place] % (Auto) Eos % (Auto) Baso % (Auto) Lymph # (Auto) [place] # (Auto) Eos # (Auto) Baso # (Auto) Abs Immat Gran (auto) Absolute Neuts (auto) Absolute Nucleated RBC Nucleated RBC % (auto) PT 10.9 Whole Blood PT INR 1.0 Whole Blood INR Sodium 139 Potassium 4.8 D Chloride 103 Carbon Dioxide 28 Anion Gap 13 BUN 13 Creatinine 0.84 Estim Creat Clear Calc 87.6 Estimated GFR > 60 POC Glucose Random Glucose 111 Calcium 8.8 Magnesium 2.1 Total Bilirubin 0.4 Direct Bilirubin 0.1 AST 11 ALT 15 Alkaline Phosphatase 84 Troponin I High Sens < 2.7 Total Protein 6.6 Albumin 4.0 TSH Urine Color Urine Appearance Urine pH Ur Specific [place] Urine Protein Urine Glucose (UA) Urine Ketones Urine Blood Urine Nitrite Ur Leukocyte Esterase COVID-19 ([facility]ANDAL) COVID-19 [employer] 10/29/22 10/29/22 10/30/22 19:00 19:00 01:09 WBC RBC Hgb Hct MCV MCH MCHC RDW Plt Count MPV Immature Gran % (Auto) Neut % (Auto) Lymph % (Auto) [place] % (Auto) Eos % (Auto) Baso % (Auto) Lymph # (Auto) [place] # (Auto) Eos # (Auto) Baso # (Auto) Abs Immat Gran (auto) Absolute Neuts (auto) Absolute Nucleated RBC Nucleated RBC % (auto) PT Whole Blood PT INR Whole Blood INR Sodium Potassium Chloride Carbon Dioxide Anion Gap BUN Creatinine Estim Creat Clear Calc Estimated GFR POC Glucose Random Glucose Calcium Magnesium Total Bilirubin Direct Bilirubin AST ALT Alkaline Phosphatase Troponin I High Sens Total Protein Albumin TSH 1.10 Urine Color Yellow Urine Appearance Clear Urine pH 8.0 Ur Specific [place] 1.025 Urine Protein Negative Urine Glucose (UA) Negative Urine Ketones Negative Urine Blood Negative Urine Nitrite Negative Ur Leukocyte Esterase Negative COVID-19 ([facility]) Negative [employer] See Note 10/30/22 10/30/22 08:16 08:16 WBC 7.2 RBC 4.76 Hgb 12.6 Hct 38.7 MCV 81.3 MCH 26.5 L MCHC 32.6 RDW 14.2 Plt Count 287 MPV 9.9 Immature Gran % (Auto) 0.4 Neut % (Auto) 63.3 Lymph % (Auto) 27.4 [place] % (Auto) 6.8 Eos % (Auto) 1.5 Baso % (Auto) 0.6 Lymph # (Auto) 2.0 [place] # (Auto) 0.5 Eos # (Auto) 0.1 Baso # (Auto) 0.0 Abs Immat Gran (auto) 0.03 Absolute Neuts (auto) 4.6 Absolute Nucleated RBC 0.000 Nucleated RBC % (auto) 0.0 PT Whole Blood PT INR Whole Blood INR Sodium 139 Potassium 4.4 Chloride 104 Carbon Dioxide 27 Anion Gap 12 BUN 14 Creatinine 0.81 Estim Creat Clear Calc 93.5 Estimated GFR > 60 POC Glucose Random Glucose 101 Calcium 9.0 Magnesium Total Bilirubin Direct Bilirubin AST ALT Alkaline Phosphatase Troponin I High Sens Total Protein Albumin TSH Urine Color Urine Appearance Urine pH Ur Specific [place] Urine Protein Urine Glucose (UA) Urine Ketones Urine Blood Urine Nitrite Ur Leukocyte Esterase COVID-19 ([facility]AL) COVID-19 Clin Com EKG shows normal sinus rhythm with normal EKG Imaging Radiologist's impression: Impressions Chest X-Ray 10/29/22 18:19 IMPRESSION: No acute cardiopulmonary process. Head CT 10/29/22 18:31 IMPRESSION: No acute intracranial pathology. This critical result was discussed with Dr Wagner at 1840 hours on 10/29/2022. It was ascertained that the content and urgency of the report was understood at the time of direct communication. Head/Neck CTA 10/29/22 18:38 IMPRESSION: 1. Progressive short segment high-grade stenosis of the A2 segment of the right anterior cerebral artery with immediate distal vessel reconstitution and preserved contrast filling of the remainder of the right ASHLEY complex. 2. No other new or progressive arterial high-grade stenosis or large vessel occlusion in the head or neck compared to CTA from 05/09/2021. There is improved caliber of the right P1 P2 junction with mild to moderate residual stenosis. Above impression was communicated to Dr Wagner on 10/29/2022 at 7:02 PM Assessment and Plan (1) Hypertensive emergency: Status: Acute Patient present with acute neurologic symptoms with hypertensive urgency with significant elevated blood pressure. She has responded very well to her usual antihypertensive medications. I suspect that might be a component of noncompliance although this is difficult to prove as patient says that she is taking all her medications. One option could be a direct observation therapy as outpatient. I would agree with currently pursuing renal duplex to assess for renal artery stenosis. Also outpatient evaluation with sleep study to evaluate for untreated sleep apnea contributing to her significant blood pressure. Stress mitigation strategies advised. Low-salt diet advised. Importance of compliance with medication was advised. I would consider monitoring of for 1 more day to see however blood pressure response to her usual medications. Surprisingly or EKG does not show any significant LVH and her echocardiogram also does not show any significant hypertensive heart disease. Continue aspirin high-intensity statin therapy for prior CVA and intracranial vascular disease. Will sign of the case at this point time. Thank you for allowing me to partake in her care Time Spent With Patient Time: Total time managing care of this patient today ____ minutes. Procedures Date of Service Date of Service: 10/30/22
[2022-10-30] MEDS: ondansetron HCL 4 MG/2 ML VIAL IVPUSH (17:08)
[2022-10-30] MEDS: traZODone HCL 50 MG TABLET 150 MG PO (20:22)
[2022-10-30] MEDS: Doxazosin Mesylate 2 MG TABLET 4 MG PO (20:23)
[2022-10-30] MEDS: hydrOXYzine HCL 50 MG TABLET PO (20:23)
[2022-10-30] MEDS: Gabapentin 300 MG CAPSULE PO (20:23)
[2022-10-30] MEDS: Atorvastatin Calcium 80 MG TABLET PO (20:24)
[2022-10-30] MEDS: Enoxaparin Sodium 40 MG/0.4 ML SYRINGE SUBCUT (20:24)
[2022-10-31] VITALS: BP 109/58; PULSE 54; RESP 18; TEMP 37.1; O2SAT 97
--- NOTE | 2022-10-31 02:37 | PC.NURSE ---
VSS. Telemetry-SR. Pt's daughter, Barbie stayed overnight last night and is staying overnight again tonight. Pt sleeping comfortably throughout night with call sarmiento within reach. Denies dizziness/weakness/Rodríguez. Ambulating to BR independently with a steady gait. Will continue to monitor.
[2022-10-31 03:14] VITALS: BP 108/51; PULSE 65; RESP 20; TEMP 36.4; O2SAT 100
[2022-10-31 07:49] VITALS: BP 128/60; PULSE 70; RESP 20; TEMP 36.4; O2SAT 100
[2022-10-31] MEDS: Aspirin Enteric Coated 81 MG TABLET.DR PO (08:14)
[2022-10-31] MEDS: carvediloL 3.125 MG TABLET PO (08:14)
[2022-10-31] MEDS: Sertraline HCL 50 MG TABLET PO (08:15)
[2022-10-31] MEDS: amLODIPine Besylate 10 MG TABLET PO (08:19)
--- NOTE | 2022-10-31 10:35 | P.PNCA_ITS ---
Subjective Subjective Date of Service: 10/31/22 Principal diagnosis: Hypertension urgency Interval history: Patient's blood pressure remains extremely well control and probably over corrected on some readings. Did discuss this with help of a certified retail presentation specialist at bedside. It appears that patient is noncompliant with her medications at home. Importance of compliance to prevent acute neurologic events was discussed with her. No cardiac symptoms at current point in time. Renal duplex is within normal limits Review of Systems Constitutional: Reports no additional constitutional complaints Cardiovascular: Reports no additional cardiovascular complaints Respiratory: Reports no additional respiratory complaints Gastrointestinal: Reports no additional gastrointestinal complaints Genitourinary: Reports no additional female genitourinary complaints Musculoskeletal: Reports no additional musculoskeletal complaints Reports system reviewed and no additional complaints, except as documented Endocrine: Reports no additional endocrine complaints Physical Exam Vital Signs: Last Vital Signs Temp 97.5 F 10/31/22 07:49 Pulse 70 10/31/22 07:49 Resp 20 10/31/22 07:49 BP 128/60 10/31/22 07:49 Pulse Ox 100 10/31/22 07:49 O2 Del Method Room Air 10/31/22 07:49 BMI result Body Mass Index 32.5 Const General: cooperative, comfortable, no acute distress, alert and awake Nutritional Appearance: overweight Orientation/consciousness: patient oriented x3 Limitations: no limitations Neck Neck: Yes trachea midline, Yes supple and Yes no JVD Resp Effort & Inspection: normal respiratory effort Auscultation: clear to auscultation bilaterally Cardio Jugular venous distension: no JVD Palpation: normal PMI Rate: regular rate Rhythm: regular rhythm Heart sounds: S1 normal heart sound present, S2 normal heart sound present, no click, no gallops, no murmurs and no rubs Neuro General: patient oriented x3 and no focal motor deficits Extrem General: Yes no clubbing, cyanosis or edema Objective Labs and Meds 10/30/22 08:16 10/30/22 08:16 Imaging Radiologist's impression: Impressions Renal Ultrasound 10/30/22 10:08 IMPRESSION: Area of cortical thinning or scarring in the upper pole of the right kidney. Otherwise normal renal ultrasound. Normal renal Doppler exam. No evidence of renal artery stenosis. Renal Ultrasound 10/30/22 10:08 IMPRESSION: Area of cortical thinning or scarring in the upper pole of the right kidney. Otherwise normal renal ultrasound. Normal renal Doppler exam. No evidence of renal artery stenosis. Progress Note: A&P Assessment and plan (1) Hypertensive emergency: Status: Acute Assessment and Plan: Hypertensive urgency with neurologic symptoms related to her not taking medications. Discussed with her the importance of compliance with medication avoiding missing her medications at this can lead to catastrophic neurologic complications as well as other complications. She showed understanding but not sure she is going to follow through with it. Likelihood if she does not take her medications for recurrent hospitalization is possible. Continue current medications. Low-salt diet was discussed. Stress mitigation strategies were discussed. For her prior CVA and intracranial vascular disease should be on high-intensity statin therapy and aspirin therapy. Will sign of the case. Thank you for allowing me to partake in her care Time Spent With Patient Time: Total time managing care of this patient today ____ minutes. Progress Note: Quality Stroke Does the patient have a stroke diagnosis?: No Procedures Date of Service Date of Service: 10/31/22
--- NOTE | 2022-10-31 12:07 | PM.DS ---
DS: Providers Provider Date of Service: 10/31/22 Date of admission: 10/29/22 20:23 Date of discharge: 10/31/22 Primary care physician: Ani Bright MD Consults: 10/29/22 20:50 Consult to Cardiology Routine Consulting Provider: [facility] [place] Cardiovascular Services Reason for consultation: hypertensive emergency Has provider been notified: Yes DS: Diagnosis Discharge Diagnosis (1) Hypertensive emergency: Status: Acute DS: Summary Hospital Course Hospital Course: 51-year-old female with history of hypertension, depression, history of multiple CVA, and depression/anxiety presented to the ED for evaluation of headache, feeling of off-balance, right eye blurred vision that started around 10:00 this morning.? She states the symptoms were constant for about 3 hours and are now more intermittent.? Describes a right-sided throbbing headache with associated blurred vision in the right eye I.? There is also a room spinning sensation that causes her to feel off balance but denies any near syncope or falls.? She denies any unilateral paresthesias, weakness, dysphagia, slurred speech, facial droop. On arrival, patient in hypertensive emergency with blood pressures persistently elevated up to 211/104 treated wtih 15mg IV labetalol, 1 inch nitro paste, SBP now 180. She reports compliance with all of her medications, including antihypertensive agents. Has been taking ibuprofen but has not taken in 3 days. Checks BP at home and states it is consistently elevated. Labs unremarkable. Head CT without acute intracranial abnormality.? CTA of the head/neck showing progressive short-segment high-grade stenosis of the A2 segment of the right anterior cerebral artery with immediate distal vessel reconstitution and preserve contrast filling of the remainder of the right ASHLEY complex.? No other new or progressive arterial high-grade stenosis are LV 0 compared to prior imaging.? CXR negative. EKG NSR, rate 79. Hospital [facility] Patient admitted to telemetry where monitor failed to show any dysrhythmias. Outpatient meds were restarted and blood pressure normalized almost immediately. Seen in consultation by Cardiology who felt this is all related to noncompliance and no changes should be made. Continue to educate patient on the importance of compliance with her medications to avoid further neurological issues. She voices understanding however is unclear if she will follow through with her compliant Time Spent with Patient Time attestation: Total time managing care of this patient today ____ minutes. Discharge coordination time: Greater than 30 minutes Quality: Safe Use of Opioids Does Pt have an Active Cancer Diagnosis on the Problem List?: No Quality: Stroke Does the patient have a stroke diagnosis?: No Physical Exam Vital Signs: Vital Signs: Last Vital Signs Temp 97.5 F 10/31/22 07:49 Pulse 70 10/31/22 07:49 Resp 20 10/31/22 07:49 BP 128/60 10/31/22 07:49 Pulse Ox 100 10/31/22 07:49 O2 Del Method Room Air 10/31/22 07:49 BMI result Body Mass Index 32.5 Const: Other: No acute issues Resp: Other: Clear to auscultation bilaterally nose rales rhonchi or wheezes Cardio: Other: No S4; positive S1-S2; no S3 murmurs rubs or gallops Extrem: Other: No edema bilaterally Discharge Plan Discharge Anticipated Discharge Date/Time: 10/31/22 12:05 Patient Disposition: Home, Self-Care Discharge Diagnosis: Hypertensive emergency Referrals: Ani Bright MD [Primary Care Provider] - 1 Week Discharge Medications: Continued ibuprofen 800 mg tablet 800 mg PO Q8H PRN (Reason: pain) 30 Days Qty: 90 3RF trazodone 150 mg tablet 1 tab PO BEDTIME atorvastatin 80 mg tablet 80 mg PO BEDTIME hydroxyzine HCl 50 mg tablet 50 mg PO BEDTIME gabapentin 300 mg capsule 300 mg PO BEDTIME lisinopril-hydrochlorothiazide 20-25 mg tablet 2 tab PO DAILY sertraline 50 mg tablet 50 mg PO DAILY diclofenac sodium 75 mg tablet,delayed release (DR/EC) 75 mg PO BID furosemide 20 mg tablet 20 mg PO DAILY doxazosin 4 mg tablet 4 mg PO BEDTIME amlodipine 10 mg tablet 10 mg PO DAILY Discharge Orders: Discharge Order (Routine); Ordered 10/31/22 Ordered By: Sotero Yeung Diet: Advance to usual diet Activity on Discharge: As tolerated Stand Alone Forms: Patient Portal Discharge page Care Plan Goals: Very important that you take your meds as ordered Health Concerns: Close follow-up with your PCP in 2 weeks for blood pressure monitoring and changes Plan of Treatment: Continue all meds as pre-hospital Assessment: See discharge summary
--- NOTE | 2022-10-31 12:19 | MHC.CM.PN ---
Patient has been medically cleared for dc to home today, self care.
[2022-11-07 15:53] LABS: Aldosterone/Renin Ratio 20.3 Ratio (0.9-28.9); Plasma Renin Activity 0.69 ng/mL/h (0.25-5.82)
== END 2022-10-31 13:00 | disposition home or self-care (01) | DRG 199 ==
LOC: HO.ED 19:59 → HO.EDOVER 21:04 → HO.IMC 10-30 06:55
PROVIDERS: Physician Assistant; Admitting Provider Physician Assistant; Emergency Provider Student in an Organized Health Care Education/Training Program; PCP Internal Medicine; Visit Provider Hospitalist
DX: I16.1 Hypertensive emergency (principal); F32.A Depression, unspecified; Z20.822 Contact with and (suspected) exposure to COVID-19; Z91.148 Patient's other noncompliance with medication regimen for other reason; Z86.73 Personal history of transient ischemic attack (TIA), and cerebral infarction without residual deficits; Z79.899 Other long term (current) drug therapy
CPT/HCPCS: 36415; 70450; 70496; 70498; 71045; 76775; 80048; 80076; 81003; 82088; 82947; 83735; 84443; 84484; 85025; 85610; 87635; 93005; 93306; 93975; 99222; 99285; J1650; J2405; Q9957; Q9967

== ENCOUNTER → 2022-11-11 10:09 | Outpatient (BNVA) | payer MEDICAID, SELFPAY | PROVIDERS: PCP Internal Medicine; Visit Provider Orthopaedic Surgery | DX: M17.11 Unilateral primary osteoarthritis, right knee (principal); S83.241D Other tear of medial meniscus, current injury, right knee, subsequent encounter | CPT/HCPCS: 99212 ==

== ENCOUNTER 2022-12-09 19:56 | Emergency (ER) | payer MEDICAID, SELFPAY ==
--- NOTE | ~2022-12-09 | XR_ITS ---
EXAMINATION: XR KNEE, LEFT CLINICAL INFORMATION: Effusion, swelling with pain COMPARISON: None available. TECHNIQUE: Four views of the left knee. FINDINGS: There is a large suprapatellar joint effusion with a moderate-sized anterior superior patellar enthesophyte. No loose bodies, fracture or dislocation seen. There is loss of medial and patellofemoral compartment joint space. XR/XR knee LT 3V IMPRESSION: 1. Large suprapatellar joint effusion with a moderate-sized anterior superior patellar enthesophyte. 2. Mild degenerative changes medial and patellofemoral compartment. 3. No acute fracture or dislocation seen.
[2022-12-09 20:07] VITALS: BP 210/88; PULSE 75; RESP 18; TEMP 36.6; O2SAT 100; BMI 32.1
--- NOTE | 2022-12-09 20:10 | ED.LOWEXIN ---
HPI - Extremity Injury (Lower) General Chief Complaint: Extremity Injury, Lower Stated Complaint: left knee pain ,elevated bp Time Seen by Provider: 12/09/22 21:27 Source: patient Mode of arrival: ambulatory Limitations: no limitations History of Present Illness HPI Narrative: Given his significant past joint problems noted sudden onset of pain while walking the left knee with swelling about 4 days ago getting worse seen her PCP today about knee aspiration was unsuccessful plan to see Orthopedics this week. No history of gout no fever no redness the skin. Patient refusing knee aspiration at this time Related Data Home Medications Medication Instructions Recorded Confirmed trazodone 150 mg tablet 1 tab PO BEDTIME 05/08/21 10/29/22 amlodipine 10 mg tablet 10 mg PO DAILY 05/27/22 10/29/22 diclofenac sodium 75 mg 75 mg PO BID 05/27/22 10/29/22 tablet,delayed release doxazosin 4 mg tablet 4 mg PO BEDTIME 05/27/22 10/29/22 furosemide 20 mg tablet 20 mg PO DAILY 05/27/22 10/30/22 atorvastatin 80 mg tablet 80 mg PO BEDTIME 10/29/22 10/29/22 gabapentin 300 mg capsule 300 mg PO BEDTIME 10/29/22 10/29/22 hydroxyzine HCl 50 mg tablet 50 mg PO BEDTIME 10/29/22 10/29/22 lisinopril 20 2 tab PO DAILY 10/29/22 10/29/22 mg-hydrochlorothiazide 25 mg tablet sertraline 50 mg tablet 50 mg PO DAILY 10/29/22 10/29/22 Previous Rx's Medication Instructions Recorded ibuprofen 800 mg tablet 800 mg PO Q8H PRN pain 30 days #90 09/23/22 tabs oxycodone-acetaminophen 5 mg-325 1 tab PO Q6H PRN pain #20 tabs 12/09/22 mg tablet (Percocet) prednisone 20 mg tablet 40 mg PO DAILY #10 tabs 12/09/22 Allergies Allergy/AdvReac Type Severity Reaction Status Date / Time No Known Allergies Allergy Verified 12/09/22 20:14 [No Known Allergies*] Review of Systems Review of Systems: Yes all other systems are reviewed and are negative PMFSH Past Medical History Medical History Abnormal Pap smear of cervix CVA (cerebral vascular accident) Depression FH: breast cancer in first degree relative HTN (hypertension) Hypertension Ovarian cyst TIA (transient ischemic attack) Surgical History H/O prior ablation treatment History of removal of ovarian cyst Hx of tubal ligation Family History Family History Paternal Aunt Breast cancer Sister Breast cancer, Onset Age: 46 Social History Social History Household Members: Children Housing: Apartment Do you presently have visiting nurse or other home services: No Alcohol intake: never Patient Tobacco Use Status: Never used Tobacco e-Cigarette/Vaping Use: Never Used Advance Directives: Yes Advance Directives on File: Yes Advance Directives Date on File: 05/09/21 service: No Current occupational status: disabled Gender identity: Female Physical Exam Vital Signs: Vital Signs: Last Vital Signs Temp 97.8 F 12/09/22 20:07 Pulse 71 12/09/22 21:33 Resp 16 12/09/22 21:33 BP 209/89 H 12/09/22 21:33 Pulse Ox 99 12/09/22 21:33 O2 Del Method Room Air 12/09/22 21:33 BMI result Body Mass Index 32.1 Extrem: Knee images: 1. Significant joint effusion left knee Lindsay and anterior drawer sign was negative Course Course Course Narrative: This is a rapid medical exam. Deferred additional HPI, ROS, PE to primary provider. 51 yo female with history of hypertension, depression, history of multiple CVA, and depression/anxiety here with complaints of left knee pain since with swelling, difficulty with ambulating. Went to PCP today and attempted for arthrocentesis which was unsuccessful per patient. Has appt with orthopedics on . Patient denies injury/fall. Will check x-rays. VSS Medications Administered Discontinued Medications Generic Name Dose Route Start Last Admin Trade Name Freq PRN Reason Stop Dose Admin Oxycodone HCl 10 mg 12/09/22 21:43 12/09/22 21:49 Oxycodone Hcl Immed Release 5 Mg Tablet PO 12/09/22 21:44 10 mg ONCE ONE Administration Medical Decision Making Medical Decision Making MDM Narrative: Patient likely inflammatory joint effusion refusing knee aspiration at this time as she is supposed to see Orthopedics in 4 days will give her Percocet and prednisone for inflammation. Discharge Plan Discharge Clinical Impression: Patellofemoral arthritis of right knee, Effusion, right knee Patient Disposition: Home, Self-Care Instructions: Swollen Knee Joint (ED) Additional Instructions: Take pain medication and steroids as prescribed Knee immobilizer for support Avoid going upstairs See orthopedic as scheduled Check blood pressure should be less than 135/85 Prescriptions: New prednisone 20 mg tablet 40 mg PO DAILY Qty: 10 0RF oxycodone-acetaminophen [Percocet] 5-325 mg tablet 1 tab PO Q6H PRN (Reason: pain) Qty: 20 0RF Rx Instructions: Partial Fill upon patient request. No Action ibuprofen 800 mg tablet 800 mg PO Q8H PRN (Reason: pain) 30 Days Qty: 90 3RF trazodone 150 mg tablet 1 tab PO BEDTIME atorvastatin 80 mg tablet 80 mg PO BEDTIME hydroxyzine HCl 50 mg tablet 50 mg PO BEDTIME gabapentin 300 mg capsule 300 mg PO BEDTIME lisinopril-hydrochlorothiazide 20-25 mg tablet 2 tab PO DAILY sertraline 50 mg tablet 50 mg PO DAILY diclofenac sodium 75 mg tablet,delayed release (DR/EC) 75 mg PO BID furosemide 20 mg tablet 20 mg PO DAILY doxazosin 4 mg tablet 4 mg PO BEDTIME amlodipine 10 mg tablet 10 mg PO DAILY
[2022-12-09 21:33] VITALS: BP 209/89; PULSE 71; RESP 16; O2SAT 99
[2022-12-09] MEDS: oxyCODONE HCl Immed Release 5 MG TABLET 10 MG PO (21:49)
[2022-12-09] MEDS: predniSONE 20 MG TABLET 40 MG PO (22:04)
== END 2022-12-09 22:28 | disposition home or self-care (01) ==
PROVIDERS: Emergency Provider Internal Medicine; PCP Internal Medicine
DX: M17.12 Unilateral primary osteoarthritis, left knee (principal); M25.462 Effusion, left knee; M25.562 Pain in left knee
CPT/HCPCS: 73562; 99283

== ENCOUNTER → 2022-12-10 14:54 | Outpatient (BNVA) | payer MEDICAID, SELFPAY | PROVIDERS: PCP Internal Medicine; Referring Provider Internal Medicine; Visit Provider Nurse Practitioner Family | DX: Z01.810 Encounter for preprocedural cardiovascular examination (principal); I10 Essential (primary) hypertension; I63.9 Cerebral infarction, unspecified; Z09 Encounter for follow-up examination after completed treatment for conditions other than malignant neoplasm | CPT/HCPCS: 99212 ==

== ENCOUNTER → 2022-12-12 09:29 | Outpatient (BNVA) | payer MEDICAID, SELFPAY | PROVIDERS: PCP Internal Medicine; Visit Provider Physician Assistant ==

== ENCOUNTER 2023-01-01 05:58 | Day surgery (SDC) | payer MEDICAID, SELFPAY ==
--- NOTE | 2022-12-31 09:10 | P.CONAN_ITS ---
Documented by User: Freda Harris NP 12/31/22 09:23 HPI - Anesthesia Eval Consult details Narrative: 52yo F for Right?Knee Arthroscopy Cardiac cleared 12/10/22 (increased htn meds) [facility] [place]2022 with hypertensive urgency PMFSH Active Problems Active Problems: All Active Problems (Updated 12/11/22 @ 20:41 by Samaria Ugarte NP-C) Hospital discharge follow-up (Acute) Preop cardiovascular exam (Acute) HTN (hypertension) (Acute) CVA (cerebral vascular accident) (Acute) Effusion, right knee (Acute) Tear of medial meniscus of right knee (Acute) Patellofemoral arthritis of right knee (Acute) Effusion, right knee (Acute) Osteoarthritis of right knee (Acute) Occipital stroke (Acute) Encounter for annual routine gynecological examination (Acute) FH: breast cancer (Acute) Elevated blood pressure reading (Acute) Potential exposure to STD (Acute) Sebaceous cyst of labia (Acute) Vulvar cyst (Acute) FH: breast cancer in first degree relative (Acute) Past Medical History Medical History Abnormal Pap smear of cervix CVA (cerebral vascular accident) Depression FH: breast cancer in first degree relative HTN (hypertension) Hypertension Ovarian cyst TIA (transient ischemic attack) Family History Family History Paternal Aunt Breast cancer Sister Breast cancer, Onset Age: 46 Surgical History Surgical History H/O prior ablation treatment History of removal of ovarian cyst Hx of tubal ligation Social History Social History Household Members: Children Housing: Apartment Do you presently have visiting nurse or other home services: No Alcohol intake: never Patient Tobacco Use Status: Never used Tobacco e-Cigarette/Vaping Use: Never Used Use of substances other than those prescribed or required for medical reasons: No Are you DNR?: No Advance Directives: No Advance Directives Information Provided: Yes Advance Directives Date on File: 05/09/21 service: No Current occupational status: disabled Gender identity: Female Meds Allergies Allergy/AdvReac Type Severity Reaction Status Date / Time No Known Allergies Allergy Verified 01/01/23 06:16 [No Known Allergies*] Home Medications Medication Instructions Recorded Confirmed Last Taken Type amlodipine 10 mg tablet 10 mg PO DAILY 05/27/22 01/01/23 01/01/23 06:00 History diclofenac sodium 75 mg 75 mg PO BID 05/27/22 01/01/23 10/28/22 History tablet,delayed release doxazosin 4 mg tablet 4 mg PO BEDTIME 05/27/22 01/01/23 10/28/22 History furosemide 20 mg tablet 20 mg PO DAILY 05/27/22 01/01/23 Unknown History atorvastatin 80 mg tablet 80 mg PO BEDTIME 10/29/22 01/01/23 10/28/22 History gabapentin 300 mg capsule 300 mg PO BEDTIME 10/29/22 01/01/23 10/28/22 History hydroxyzine HCl 50 mg tablet 50 mg PO BEDTIME 10/29/22 01/01/23 10/28/22 History lisinopril 20 2 tab PO DAILY 10/29/22 01/01/23 10/29/22 History mg-hydrochlorothiazide 25 mg tablet sertraline 50 mg tablet 50 mg PO DAILY 10/29/22 01/01/23 01/01/23 06:00 History aspirin 81 mg tablet,delayed 81 mg PO DAILY 12/10/22 01/01/23 12/25/22 History release trazodone 150 mg tablet 150 mg PO BEDTIME 12/10/22 01/01/23 Unknown History carvedilol 12.5 mg tablet 12.5 mg PO BID 12/30/22 01/01/23 01/01/23 06:00 History Exam Exam Date and Time: December 31, 2022 0910 Pertinent Lab Results Pertinent Lab Results: Laboratory Tests 10/30/22 10/30/22 08:16 08:16 WBC 7.2 Hgb 12.6 Hct 38.7 Plt Count 287 Sodium 139 Potassium 4.4 Chloride 104 Carbon Dioxide 27 BUN 14 Creatinine 0.81 Narrative Narrative: EKG 10/2022 Vent. Rate : 079 BPM ? ? Atrial Rate : 079 BPM ?? P-R Int : 166 ms? QRS Dur : 072 ms ? ? QT Int : 402 ms ? ? ? P-R-T Axes : 060 005 040 degrees ?? QTc Int : 460 ms ? Normal sinus rhythm Normal ECG When compared with ECG of 08-MAY-2021 20:48, No significant change was found ECHO 10/2022 Conclusions: - Essentially normal study ? Assessment and Plan Assessment Anesthesia Assessment: Chart Reviewed Documented by User: Pancho Gayle MD 01/01/23 08:52 HPI - Anesthesia Eval Consult details Narrative: 52yo F for Right?Knee Arthroscopy CVA , x3 . residual vision deficits b/l . As per patient follows up with neurology and saw neurologist recently and as per neurologist is optimized to undergo procedure . Cardiac cleared 12/10/22 (increased htn meds) [facility] [place] 10/2022 with hypertensive urgency PMFSH Past Medical History Medical History Abnormal Pap smear of cervix CVA (cerebral vascular accident) Depression FH: breast cancer in first degree relative HTN (hypertension) Hypertension Ovarian cyst TIA (transient ischemic attack) Family History Family History Paternal Aunt Breast cancer Sister Breast cancer, Onset Age: 46 Family history of problems with anesthesia: No Surgical History Surgical History H/O prior ablation treatment History of removal of ovarian cyst Hx of tubal ligation History of Problems with Anesthesia: No Social History Social History Household Members: Children Housing: Apartment Do you presently have visiting nurse or other home services: No Alcohol intake: never Patient Tobacco Use Status: Never used Tobacco e-Cigarette/Vaping Use: Never Used Use of substances other than those prescribed or required for medical reasons: No Are you DNR?: No Advance Directives: No Advance Directives Information Provided: Yes Advance Directives Date on File: 05/09/21 service: No Current occupational status: disabled Gender identity: Female Meds Allergies Allergy/AdvReac Type Severity Reaction Status Date / Time No Known Allergies Allergy Verified 01/01/23 06:16 [No Known Allergies*] Home Medications Medication Instructions Recorded Confirmed Last Taken Type amlodipine 10 mg tablet 10 mg PO DAILY 05/27/22 01/01/23 01/01/23 06:00 History diclofenac sodium 75 mg 75 mg PO BID 05/27/22 01/01/23 10/28/22 History tablet,delayed release doxazosin 4 mg tablet 4 mg PO BEDTIME 05/27/22 01/01/23 10/28/22 History furosemide 20 mg tablet 20 mg PO DAILY 05/27/22 01/01/23 Unknown History atorvastatin 80 mg tablet 80 mg PO BEDTIME 10/29/22 01/01/23 10/28/22 History gabapentin 300 mg capsule 300 mg PO BEDTIME 10/29/22 01/01/23 10/28/22 History hydroxyzine HCl 50 mg tablet 50 mg PO BEDTIME 10/29/22 01/01/23 10/28/22 History lisinopril 20 2 tab PO DAILY 10/29/22 01/01/23 10/29/22 History mg-hydrochlorothiazide 25 mg tablet sertraline 50 mg tablet 50 mg PO DAILY 10/29/22 01/01/23 01/01/23 06:00 History aspirin 81 mg tablet,delayed 81 mg PO DAILY 12/10/22 01/01/23 12/25/22 History release trazodone 150 mg tablet 150 mg PO BEDTIME 12/10/22 01/01/23 Unknown History carvedilol 12.5 mg tablet 12.5 mg PO BID 12/30/22 01/01/23 01/01/23 06:00 History Exam Airway Mallampati Class: IV TM Dist: >3cm Neck ROM: Full Loose/Missing/Broken Teeth: Yes Assessment and Plan Assessment Anesthesia Assessment: Anesthesia Plan Discussed Final Anesthetic Review Family History of Problems with Anesthesia: No History of Problems with Anesthesia: No NPO: Yes ASA Class: III Final Preanesthetic Review: Meds/Allgs Chart Reviewed, Consent Obtained/Reviewed and Anes Risks/Benef Reviewed Patient Risk: High Procedure Risk: Intermediate Anesthetic Plan Anesthetic Plan: GA Disposition: Standard PACU
[2023-01-01] VITALS (9 sets, daily range): BP systolic 98–190; BP diastolic 52–86; PULSE 56–74; RESP 14–18; TEMP 36.1–36.5; O2SAT 96–99; BMI 31.6
--- NOTE | 2023-01-01 06:35 | PC.NURSE ---
Patient voiced refusal for blood products. Surgical consent initialed where indicated. Dr. Thompson, OR nurse, and Anesthesia on case made aware.
--- NOTE | 2023-01-01 06:36 | PC.NURSE ---
Chele backpack with cell phone inside handed to Barbei (patients daughter) in waiting room per patients request.
--- NOTE | 2023-01-01 07:34 | MHC.SHP ---
Pre-Procedural Eval Section A Date of Service: 01/01/23 The patient is an INPATIENT: No Changes since office visit: No Cold of Flu in the past 2 weeks, No New Medical Problems, No Changes in Medication and No Patient answered all questions The History & Physical has been completed within 30 days and I have reviewed it.: Yes Section B Chief Complaint: Displaced spiral fracture of shaft of right tibia Allergies: Allergies Allergy/AdvReac Type Severity Reaction Status Date / Time No Known Allergies Allergy Verified 01/01/23 06:16 [No Known Allergies*] Plan I have reviewed the history and physical and performed a pertinent physical examination on my patient. No changes have occurred unless specified. Time Spent With Patient Time: Total time managing care of this patient today ____ minutes.
[2023-01-01] MEDS: oxyCODONE HCl Immed Release 5 MG TABLET PO (09:20)
--- NOTE | 2023-01-01 10:13 | PM.OP ---
Brief Operative Note Date of Service: 01/01/23 Pre-op diagnosis: Right knee MMT Post-op diagnosis: other (Right knee OA and right knee MMT) Procedure: right knee and chondroplasty Implants: none Surgeon: Erik Thompson MD Was an Wire Drawing Setter used for this Procedure?: No Estimated blood loss (mL): 0 Tourniquet time (min): 17 IV fluids (mL): 500 Pathology: none sent Condition: stable Disposition: PACU
--- NOTE | 2023-01-16 19:58 | W.PM.OPN ---
Operative Note Operative Note Date of Service: 01/01/23 Narrative: Date of Service: 01/01/23 Pre-op diagnosis: Right knee MMT Post-op diagnosis: other (Right knee OA and right knee MMT) Procedure: right knee and chondroplasty Implants: none Surgeon: Erik Thompson MD Was an Flight Operations Specialist used for this Procedure?: No Estimated blood loss (mL): 0 Tourniquet time (min): 17 IV fluids (mL): 500 Pathology: none sent Condition: stable Disposition: PACU Procedure in detail: Patient was brought to the operating room placed supine on the arthroscopic table and prepped and draped in standard sterile fashion. A time-out was called to identify proper site proper procedure proper surgeon and IV antibiotics per weight were administered. I began by exsanguinating the limb and insufflating tourniquet to 300 mm Hg. Then made a standard anterolateral stab incision. The knee was insufflated with water and 30 degree arthroscope was placed. There was grade 2 changes of the patella and G3/4 changes of the trochlea. The suprapatellar pouch and the gutters were clean. I descended into the medial compartment where I made my medial portal under direct visualization. There was G3/4 changes of the medial comaprtment with a degenerative MMT. I used a combination of biter shaver and cautery to remove unstable portions of the meniscus. Approximately 25% meniscal volume was removed. Once I was satisfied with this the ACL was examined and intact. The lateral compartment was notable with G3/4 changes and an intact mensicus. Chondroplasty of the articular surfaces was done with a shaver and the cautery wand. I then removed all instrumentation and closed the portals with skin glue. 25 mL of 2% Marcaine with epinephrine was injected into the joint and the surrounding soft tissues. Patient was then placed in sterile dressing extubated brought recovery room stable condition. There were no known complications.
== END 2023-01-01 10:26 | disposition home or self-care (01) ==
PROVIDERS: PCP Internal Medicine; Visit Provider Orthopaedic Surgery
PROC: (CPT 29870; principal; 2023-01-01 07:30)
DX: S83.241A Other tear of medial meniscus, current injury, right knee, initial encounter (principal); X58.XXXA Exposure to other specified factors, initial encounter; Y93.9 Activity, unspecified; Y92.9 Unspecified place or not applicable; Y99.8 Other external cause status; M17.11 Unilateral primary osteoarthritis, right knee; I10 Essential (primary) hypertension; Z86.73 Personal history of transient ischemic attack (TIA), and cerebral infarction without residual deficits; Z79.82 Long term (current) use of aspirin; Z79.52 Long term (current) use of systemic steroids; Z79.1 Long term (current) use of non-steroidal anti-inflammatories (NSAID); Z79.899 Other long term (current) drug therapy
CPT/HCPCS: 29881; J0131; J0171; J0690; J1100; J1170; J1885; J2250; J2405; J2795; J3010

== ENCOUNTER → 2023-01-06 08:05 | Outpatient (BNVA) | payer MEDICAID, SELFPAY | PROVIDERS: PCP Internal Medicine; Visit Provider Physician Assistant | DX: Z47.89 Encounter for other orthopedic aftercare (principal); Z98.890 Other specified postprocedural states | CPT/HCPCS: 99212 ==

== ENCOUNTER 2023-01-09 10:00 | Outpatient (RCR) | payer MEDICAID, SELFPAY ==
--- NOTE | 2023-01-07 15:16 | MHC.PT.EP ---
[facility] [place] [facility] [place] [facility] [place] [facility] [address] [place] [address] [phone] F: [phone] F: [phone] F: [phone] F: [phone] Physical Therapy Plan of Care Date of Evaluation: Date of Surgery: 01/01/23 Diagnosis: s/o R knee meniscectomy on 01/01/23 (RL) S83.241A other tear of medial meniscus, current injury, right knee, initial encounter M17.11 unilateral primary osteoarthritis, right knee Assessment: pt is a 52 y/o female presenting to physical therapy w/ referring diagnosis of s/p R knee medial meniscectomy. Impairments include pain, decreased range of motion, decreased strength, impaired functional mobility, impaired postural awareness, and altered ambulation mechanics. pt is a good candidate for skilled PT due to age, potential remediation of impairments, typical disease/condition progression and prognosis, comorbidities, and motivation. pt would benefit from skilled PT intervention to provide a tailored strengthening and stretching exercise program, functional training, gait training, postural re-training, neuromuscular re-education, modalities as needed for pain, equipment safety demonstration. Frequency and Duration: The patient will be seen 2x/wk for 6 wks Short Term Goals: pt will be I w/ HEP to promote self-management of condition. pt will improve R knee extension to 0 degrees to normalize gait pattern on even ground. Intermediate Goals: pt will report a statistically significant improvement in self-reported outcome measure, LEFI, to promote return to PLOF. pt will improve R knee extension strength to at least 4+/5 to promote ease in ascending stairs. Treatment Plan: Modalities to reduce pain, spasms and effusion. Manual therapy to restore motion and function. Therapeutic exercise to improve strength and flexibility. Neuromuscular re-education for posture and balance. Therapeutic activities to return to functional activities of daily living. Electronically signed by: Nimco Gonzales PT, DPT Please sign and return to therapist. Thank you for your referral.
--- NOTE | 2023-01-23 10:14 | MHC.PT.DC ---
[facility] [place] [facility] [place] Office [place] Office [address] [place] 140 [facility] [phone] F: [phone] F: [phone] F: [phone] F: [phone] Physical Therapy Discharge Report Diagnosis: s/o R knee meniscectomy on 01/01/23 (RL) S83.241A other tear of medial meniscus, current injury, right knee, initial encounter M17.11 unilateral primary osteoarthritis, right knee Date of Surgery: 01/01/23 Date of Evaluation: 01/07/23 Date of Discharge: 01/23/23 Treatments to Date: 2 Cancellations to Date: 1 No Shows to Date: 3 Discharge Status: Discharge Summary: The patient has no showed three appointments. Per [facility] [place] Core Therapy attendance policy she is to be discharged from this physical therapy plan of care. For the two visits she did attend she had poor tolerance of exercise and would often become tearful. Electronically signed by: Nimco Gonzales PT, DPT Please sign and return to therapist. Thank you for your referral.
== END 2023-01-23 10:14 | disposition home or self-care (01) ==
LOC: HO.PT 10:00
PROVIDERS: PCP Internal Medicine; Visit Provider Orthopaedic Surgery
DX: S83.241D Other tear of medial meniscus, current injury, right knee, subsequent encounter (principal); M17.11 Unilateral primary osteoarthritis, right knee
CPT/HCPCS: 97110; 97162

== ENCOUNTER 2023-01-30 14:44 | Outpatient (AMB) | payer MEDICAID, SELFPAY ==
--- NOTE | 2023-01-30 14:58 | MHC.OFFVIS ---
Intake Vital Signs 01/30/23 15:01 Height 5 ft 6 in Weight 198 lb BMI 32.0 Intake Visit Reasons: Postop-RT Knee 01/01/23NE F/U Intake Note: Michelle is a 52 year old female who presents today for a post op appointment for her right knee 01/01/23 NE. Patient reports her right knee is doing better. She states that her left knee is causing her pain exactly like her right knee. PT is going well. Allergies No Known Allergies [No Known Allergies*] Allergy (Verified 01/30/23 15:01) HPI Postop-RT Knee 01/01/23NE F/U HPI Details 52-year-old female, who is [place] speaking, presents in the office today 1 month status post right knee arthroscopy and chondroplasty, which was performed on 01/01/[address] Thompson. The patient reports her right knee is doing better. She states her left knee is causing her a lot of pain, just like her right knee. She confirms participating in physical therapy and states it is going well. PFSH Medical History Abnormal Pap smear of cervix CVA (cerebral vascular accident) Depression FH: breast cancer in first degree relative HTN (hypertension) Hypertension Ovarian cyst TIA (transient ischemic attack) Surgical History H/O prior ablation treatment History of removal of ovarian cyst Hx of tubal ligation Family History Paternal Aunt Breast cancer Sister Breast cancer, Onset Age: 46 Social History Household Members: Children Housing: Apartment Do you presently have visiting nurse or other home services: No Alcohol intake: never Patient Tobacco Use Status: Never used Tobacco e-Cigarette/Vaping Use: Never Used Advance Directives Date on File: 05/09/21 service: No Current occupational status: disabled Gender identity: Female Review of Systems Const All systems reviewed & are unremarkable except as noted in HPI and below Physical Exam Vital Signs: BMI result Body Mass Index 32.0 Const General: cooperative and no acute distress Orientation/consciousness: patient oriented x3 Resp Effort & Inspection: normal respiratory effort and able to speak in complete sentences Cardio Peripheral pulses: Peripheral pulses 2+ throughout Neuro General: patient oriented x3 Extrem Other: Right knee: Incision site is clean, dry, and intact. No signs of infection. No ecchymosis, erythema, or joint effusion. No tenderness to palpation to the medial or lateral joint lines. Full knee extension and flexion. Negative Viktor's. Negative anterior draw. NVI. Left knee: ROM is 0-100 degrees. Tenderness to palpation globally. Mild to moderate effusion. Psych Mental Status: mental status grossly normal Office Procedures Joint Injection/Drain Joint Injection/Drain Primary Site: left knee Prep: site was prepped using aseptic technique, ethochloride spray was applied and injection warnings given Injected: 80 mg of, DepoMedrol and with 8 mL of (2% plain lido) Approach Used: anterolateral Procedure: The patient tolerated the procedure well, but had some pain with the injection and there was some relief with the local anesthesia Coding 57663 - Large joint Procedure code (CPT) selection complete Results Reviewed Results Reviewed: 01/30/23 15:20 Lidocaine HCl 2 % MPF [Xylocaine 2 % MPF] 5 ml .ROUTE .STK-MED ONE methylPREDNISolone acetate [DEPO-MedroL] 80 mg .ROUTE .STK-MED ONE Assessment & Plan Assessment & Plan (1) S/P right knee arthroscopy: Comment: Right knee arthroscopy and chondroplasty 01/01/2023 NE Code(s): Z98.890 - Other specified postprocedural states (2) Internal derangement of left knee: Code(s): M23.92 - Unspecified internal derangement of left knee Plan Ms. Yoon is a 52-year-old female, who is [place]se speaking, presents in the office today 1 month status post right knee arthroscopy and chondroplasty, which was performed on 01/01/[address] Thompson. The patient reports her right knee is doing better. She states her left knee is causing her a lot of pain, just like her right knee. She confirms participating in physical therapy and states it is going well. Right knee: The patient will continue to work with physical therapy. Left knee: The patient was offered a cortisone injection in the left knee with 80 mg of DepoMedrol. The patient was explained the risk, benefits, and alternatives to receiving this injection. After receiving consent for the injection, the patient had the procedure done while in office today. The patient tolerated the procedure well with no complications. The patient will call when she has completed all her sessions of physical therapy. At this time if the left knee is still causing her pain then we will consider moving forward with an MRI. Follow up will be PRN, or sooner if needed. Medications: Discontinued carvedilol must administer with a meal/food - Take 1.5 tablets twice daily 18.75 mg (1.5 x 12.5 mg) PO BID 90 days 270 tabs 1RF Patient Instructions: Scribed for Flavia Edouard PA-C by Flora Salas medical oncologist, on 01/30/2023 at 2:47 pm, EST. Your attestation Coding Level of Care Code Global (80790) Diagnoses S/P right knee arthroscopy Z98.890 Internal derangement of left knee M23.92 CPT Codes Coding - 88075 Large joint: 35626 - Large joint ([id number])
[2023-01-30 15:01] VITALS: BMI 32.0
== END 2023-01-30 16:22 | disposition home or self-care (01) ==
PROVIDERS: PCP Internal Medicine; Visit Provider Physician Assistant
DX: M23.92 Unspecified internal derangement of left knee (principal)
CPT/HCPCS: 20610; 99024

== ENCOUNTER → 2023-01-30 14:44 | Outpatient (BNVA) | payer MEDICAID, SELFPAY | PROVIDERS: PCP Internal Medicine; Visit Provider Physician Assistant | DX: M23.92 Unspecified internal derangement of left knee (principal); Z98.890 Other specified postprocedural states; Z68.32 Body mass index [BMI] 32.0-32.9, adult | CPT/HCPCS: 20610; J1040 ==

== ENCOUNTER 2023-03-31 09:20 | Outpatient (REF) | payer MEDICAID, SELFPAY ==
[2023-03-31 10:35] LABS: Alanine Aminotransferase 26 U/L (0-31); Albumin Level 3.8 g/dL (3.5-5.0); Alkaline Phosphatase 74 U/L (39-117); Anion Gap 12 (12-20); Aspartate Amino Transferase 19 U/L (5-31); Bilirubin Total 0.3 mg/dL (0.0-1.0); Blood Urea Nitrogen 16 mg/dL (9-16); Calcium 8.8 mg/dL (8.4-10.2); Carbon Dioxide 27 mmol/L (22-29); Chloride 106 mmol/L (96-108); Cholesterol 223 mg/dL (<200); Estimated Glomerular Filt Rate > 60; Glucose Random 131 mg/dL (60-115); HDL Cholesterol 44 mg/dL (>40); LDL Cholesterol Calculated 126 mg/dL (<100); Sodium 141 mmol/L (135-145); Total Protein 6.7 g/dL (6.5-8.0); Triglycerides 268 mg/dL (<150)
== END 2023-03-31 09:21 | disposition home or self-care (01) ==
LOC: HO.LAB 09:20
PROVIDERS: PCP Internal Medicine; Visit Provider Internal Medicine
DX: Z00.00 Encounter for general adult medical examination without abnormal findings (principal); E78.00 Pure hypercholesterolemia, unspecified; I10 Essential (primary) hypertension; F32.9 Major depressive disorder, single episode, unspecified
CPT/HCPCS: 36415; 80053; 80061

== ENCOUNTER 2023-04-01 22:19 | Emergency (ER) | payer MEDICAID, SELFPAY ==
--- NOTE | ~2023-04-01 | XR_ITS ---
Examination: XR knee LT 3V, XR knee RT 3V Indication: painful Comparison: 12/09/2022 images of the left knee Technique: 4 views of each knee obtained Findings: Left: Moderate sized joint effusion is seen decrease in the prior study. Tricompartmental degenerative changes are noted more so in the medial compartment where there is more significant loss of joint space and small osteophyte formation no acute fracture or dislocation. Right: Moderate-sized joint effusion. Extensive tricompartmental degenerative changes are seen again more so in the medial compartment where there is more significant loss of joint height, subchondral sclerosis, and osteophyte formation. XR/XR knee RT 3V Impression: Extensive bilateral tricompartmental degenerative changes more so in the medial compartments. Bilateral joint effusions are present. No acute fracture or dislocation.
--- NOTE | ~2023-04-01 | XR_ITS ---
Examination: XR knee LT 3V, XR knee RT 3V Indication: painful Comparison: 12/09/2022 images of the left knee Technique: 4 views of each knee obtained Findings: Left: Moderate sized joint effusion is seen decrease in the prior study. Tricompartmental degenerative changes are noted more so in the medial compartment where there is more significant loss of joint space and small osteophyte formation no acute fracture or dislocation. Right: Moderate-sized joint effusion. Extensive tricompartmental degenerative changes are seen again more so in the medial compartment where there is more significant loss of joint height, subchondral sclerosis, and osteophyte formation. XR/XR knee LT 3V Impression: Extensive bilateral tricompartmental degenerative changes more so in the medial compartments. Bilateral joint effusions are present. No acute fracture or dislocation.
[2023-04-01 22:27] VITALS: BP 218/98; PULSE 88; RESP 18; TEMP 36.7; O2SAT 98; BMI 30.7
--- NOTE | 2023-04-01 23:37 | ECG_ITS ---
Test Reason : HYPERTENSION Blood Pressure : / mmHG Vent. Rate : 073 BPM Atrial Rate : 073 BPM P-R Int : 162 ms QRS Dur : 078 ms QT Int : 424 ms P-R-T Axes : 061 003 038 degrees QTc Int : 467 ms Normal sinus rhythm Nonspecific T wave abnormality Abnormal ECG When compared with ECG of 29-OCT-2022 18:46, Nonspecific T wave abnormality now evident in Lateral leads Referred By: Olivia Vickers Electronically Signed By:BANG RANGEL
[2023-04-01 23:56] LABS: MANUAL DIFF FLAG NO
[2023-04-01] MEDS: Morphine Sulfate 4 MG/ML CARTRIDGE IVPUSH (23:57)
--- NOTE | 2023-04-01 23:57 | ED_ITS ---
HPI - General Adult General Chief complaint: Extremity Injury, Lower Stated complaint: bilateral knee pain Time Seen by Provider: 04/01/23 22:49 Source: patient Mode of arrival: wheelchair Limitations: no limitations History of Present Illness HPI narrative: Patient comes to the emergency room complaining of bilateral knee pain. Patient states that almost 3 months ago, patient had a surgery in her right knee done. Patient states that she was told by her orthopedic surgeon that she will need surgery on the left knee as well. Patient states that both her knees are swollen, painful, has been taking naproxen, Aleve, ibuprofen, Tylenol without relief. Patient states that both legs look swollen. Patient takes ?a water pill? and she is compliant with her medications. Patient states that is very painful to walk. Patient call her orthopedic surgeon and was advised to come to the emergency room. In triage she was noted that patient has high blood pressure, patient states that she has been feeling lightheaded lately, no chest pain or shortness of breath. Related Data Home Medications Medication Instructions Recorded Confirmed amlodipine 10 mg tablet 10 mg PO DAILY 05/27/22 01/01/23 diclofenac sodium 75 mg 75 mg PO BID 05/27/22 01/01/23 tablet,delayed release doxazosin 4 mg tablet 4 mg PO BEDTIME 05/27/22 01/01/23 furosemide 20 mg tablet 20 mg PO DAILY 05/27/22 01/01/23 atorvastatin 80 mg tablet 80 mg PO BEDTIME 10/29/22 01/01/23 gabapentin 300 mg capsule 300 mg PO BEDTIME 10/29/22 01/01/23 hydroxyzine HCl 50 mg tablet 50 mg PO BEDTIME 10/29/22 01/01/23 lisinopril 20 2 tab PO DAILY 10/29/22 01/01/23 mg-hydrochlorothiazide 25 mg tablet sertraline 50 mg tablet 50 mg PO DAILY 10/29/22 01/01/23 aspirin 81 mg tablet,delayed 81 mg PO DAILY 12/10/22 01/01/23 release trazodone 150 mg tablet 150 mg PO BEDTIME 12/10/22 01/01/23 carvedilol 12.5 mg tablet 12.5 mg PO BID 12/30/22 01/01/23 Previous Rx's Medication Instructions Recorded oxycodone-acetaminophen 5 mg-325 1 tab PO Q6H PRN pain #20 tabs 12/09/22 mg tablet (Percocet) oxycodone-acetaminophen 5 mg-325 1 tab PO Q8H PRN pain (scale score 01/01/23 mg tablet (Percocet) 4-6) 7 days #21 tabs ibuprofen 800 mg tablet 800 mg PO Q8H PRN for pain #90 tabs 01/22/23 carvedilol 25 mg tablet 25 mg PO BID #60 tabs 04/02/23 furosemide 40 mg tablet (Lasix) 40 mg PO DAILY #4 tabs 04/02/23 oxycodone 5 mg tablet 5 mg PO BID PRN pain #7 tabs 04/02/23 Allergies Allergy/AdvReac Type Severity Reaction Status Date / Time No Known Allergies Allergy Verified 01/30/23 15:01 [No Known Allergies*] Review of Systems 2 Review of Systems: Constitutional : No Weight loss, No Fever, No Chills, No Night Sweats, No Fatigue, No Malaise ENT/Mouth : No Hearing loss, No Ear Pain, No Nasal Congestion, No Sinus Pain, No Hoarseness, No sore throat, No Rhinorrhea, No Swallowing Difficulty Eyes: No Eye Pain, No Swelling, No Redness, No Foreign Body, No Discharge, No Vision Changes Cardiovascular : No Chest Pain, No SOB, No Dyspnea on Exertion, No Orthopnea, No Edema, No Palpitations Respiratory : No Cough, No Sputum, No Wheezing, No Smoke Exposure, No Dyspnea Gastrointestinal : No Nausea, No Vomiting, No Diarrhea, No Constipation, No abdominal Pain, No Hematochezia, No Melena Genitourinary : no irregular bleeding, No Dysuria, No Urinary Frequency, No Hematuria, No Urinary Incontinence, No Urgency, No Flank Pain, No Urinary Flow Changes, No Hesitancy Musculoskeletal : Complaining of chronic bilateral knee pain and swelling No Myalgias, No Joint Swelling Skin : No Skin Lesions, No rash Neuro : No Weakness, No Numbness, No Paresthesias, No Loss of Consciousness, No Dizziness, No Headache Psych : No Anxiety/Panic, No Depression, No SI/HI/AH/VH, No Social Issues, Heme/Lymph: No Bruising, No Bleeding,No Lymphadenopathy Endocrine : No Polyuria, No Polydipsia, No Temperature Intolerance PMFSH Past Medical History Medical History TIA (transient ischemic attack) CVA (cerebral vascular accident) Hypertension FH: breast cancer in first degree relative Abnormal Pap smear of cervix Ovarian cyst Depression HTN (hypertension) Surgical History H/O prior ablation treatment Hx of tubal ligation History of removal of ovarian cyst Family History Family History Paternal Aunt Breast cancer Sister Breast cancer, Onset Age: 46 Social History Social History Household Members: Children Housing: Apartment Do you presently have visiting nurse or other home services: No Alcohol intake: never Patient Tobacco Use Status: Never used Tobacco Smoked in Last 30 Days: No e-Cigarette/Vaping Use: Never Used Use of substances other than those prescribed or required for medical reasons: No Advance Directives: Yes Advance Directives on File: Yes Advance Directives Date on File: 05/09/21 Patient : No service: No Current occupational status: disabled Gender identity: Female Physical Exam ED Vital Signs: Vital Signs - 24 hr 04/01/23 22:27 04/02/23 01:06 Temperature 98.1 F Pulse Rate 88 73 Respiratory Rate 18 16 Blood Pressure 218/98 H 172/76 H Pulse Oximetry 98 98 Oxygen Delivery Method Room Air Room Air BMI result Body Mass Index 30.7 Const Other: Appearance: Alert. Oriented X3. No acute distress. Eyes: Pupils equal, round and reactive to light. ENT: Pharynx normal. Neck: Normal inspection. Neck supple. No lymph nodes noted. No crepitus CVS: Normal heart rate and rhythm. Pulses normal. Normal S1 and S2 Respiratory: No respiratory distress. Breath sounds normal. No Wheezing. No rales Abdomen: Soft and nontender. No rigidity. No distention. Skin: Skin warm and dry. Normal skin color. Normal skin turgor. Extremities: No lower extremity edema. Has bilateral lower extremity edema from the toes up to the knees bilaterally. Plus two nonpitting edema. Patient's knee seemed to have effusions. The knees are not erythematous or warm to touch Neuro: Oriented X 3. No motor deficit. No sensory deficit. Moving all extremities. No slurred speech. CN 2 through 12 grossly intact Psych: calm, cooperative, normal affect Course Course Course Narrative: -patient has bilateral lower extremity edema from the toes up to the knees. Physical exam does not suggest septic joints. Patient has no fever chills. -in triage, it was noted that patient's has a blood pressure of 218/98. Whenever checked when he was 138 systolic. Patient denies chest pain or shortness of breath. Patient states at home she takes amlodipine 10 mg and carvedilol 12.5 mg b.i.d. and doxazosin 4 mg, states she is compliant with her meds. -given the patient's history of CVA secondary to hypertension, patient will be getting labs, EKG, patient will be given pain medication to help both the knees and hopefully a blood pressure. Discussed with the patient that if her blood pressure does not improve shortly after getting pain medications, we will have to treat her for hypertensive urgency. Patient agreeable with plan. Medications Administered Discontinued Medications Generic Name Dose Route Start Last Admin Trade Name Freq PRN Reason Stop Dose Admin Labetalol HCl 10 mg 04/02/23 00:40 04/02/23 00:45 Labetalol Hcl 100 Mg/20 Ml Vial IVPUSH 04/02/23 00:41 10 mg ONCE ONE Administration Morphine Sulfate 4 mg 04/01/23 23:37 04/01/23 23:57 Morphine Sulfate 4 Mg/Ml Cartridge IVPUSH 04/01/23 23:38 4 mg ONCE ONE Administration Protocol Medical Decision Making Medical Decision Making MDM Narrative: -patient received 4 mg IV of morphine for the pain, patient states that the pain is better controlled. Blood pressure still 220 systolic. Patient states that she still feels dizzy/lightheaded -Patient given labetalol 10 mg IV -patient's blood pressure improved to 172/76, patient no longer feeling lightheaded, no chest pain shortness of breath headache or visual changes -discussed with the patient that I will go ahead and increase her blood pressure medication carvedilol 12.5 mg b.i.d. which she usually takes to 25 mg b.i.d.. Patient instructed to have close follow-up with her primary care physician. -patient also given Lasix for tomorrow, usually takes 20 mg, for a few days will increase it to 40 mg b.i.d. to help with the lower extremity edema Differential Diagnosis Differential Diagnoses: The differential diagnosis associated with the presentation includes (Hypertensive urgency, hypertensive emergency, chronic hypertension, chronic lower extremity pain) Admission/Observation Consideration of admission/observation: Escalation of care including admission/observation considered (Due to patient's high blood pressure, vision considered) Lab Data MDM Lab Attestation statement: I reviewed the patient's lab results. 04/01/23 23:50 04/01/23 23:50 Labs: Lab Results 04/01/23 Range/Units 23:50 WBC 6.5 (4.8-10.8) X10*3/uL RBC 4.21 (4.20-5.50) X10*6/uL Hgb 11.4 L (12.0-16.0) g/dl Hct 34.5 L (37.0-47.0) % MCV 81.9 (80.0-98.0) fL MCH 27.1 (27.0-33.0) pg MCHC 33.0 (31.0-35.0) g/dl RDW 14.6 (11.0-16.0) % Plt Count 262 (160-400) X10*3/uL MPV 9.7 (9.4-12.3) fL Immature Gran % (Auto) 0.2 (0.0-0.4) % Neut % (Auto) 59.8 (45-73) % Lymph % (Auto) 29.3 (20-40) % Randall % (Auto) 7.9 (2-11) % Eos % (Auto) 2.2 (0-4) % Baso % (Auto) 0.6 (0-2) % Lymph # (Auto) 1.9 (1.2-4.9) X10*3/uL Randall # (Auto) 0.5 (0.1-1.2) X10*3/uL Eos # (Auto) 0.1 (0.0-0.4) X10*3/uL Baso # (Auto) 0.0 (0.0-0.2) X10*3/uL Abs Immat Gran (auto) 0.01 (0.00-0.03) X10*3/uL Absolute Neuts (auto) 3.9 (2.0-8.3) x10*3/uL Absolute Nucleated RBC 0.000 (0.0-0.012) X10*3/uL Nucleated RBC % (auto) 0.0 (0.0-0.2) /100WBC Sodium 141 (135-145) mmol/L Potassium 3.9 (3.3-5.1) mmol/L Chloride 106 (96-108) mmol/L Carbon Dioxide 25 (22-29) mmol/L Anion Gap 14 (12-20) BUN 14 (9-16) mg/dL Creatinine 0.76 (0.5-1.4) mg/dL Estim Creat Clear Calc 95.7 Estimated GFR > 60 Random Glucose 162 H (60-115) mg/dL Calcium 9.1 (8.4-10.2) mg/dL Troponin I High Sens < 2.7 (<3.5-17.0) ng/L Independent Interpretation I performed an independent interpretation of an: EKG (Interpretation of EKG: Normal sinus rhythm, heart rate 73, no ST segment depression or elevation, no T- wave inversion, QTC 467) Critical Care Time Critical Care Time Critical Care Time: Yes Total Critical Care Time: 75 Attestation: I have personally provided critical care time. Time includes review of lab data, radiology results, discussion with consultants, and monitoring for potential decompensation. Intervention performed as documented. Discharge Plan Discharge Clinical Impression: Hypertensive urgency, Bilateral knee pain Patient Disposition: Home, Self-Care Instructions: Chronic Hypertension (ED), Leg Edema (ED), Arthralgia (ED) Additional Instructions: Please follow-up with your primary care physician tomorrow. If you have any worsening or new symptoms, please return to the emergency room or call 911 Prescriptions: New carvedilol 25 mg tablet 25 mg PO BID Qty: 60 1RF Rx Instructions: must administer with a meal/food furosemide [Lasix] 40 mg tablet 40 mg PO DAILY Qty: 4 0RF oxycodone 5 mg tablet 5 mg PO BID PRN (Reason: pain) Qty: 7 0RF Rx Instructions: Partial Fill upon patient request. No Action ibuprofen 800 mg tablet 800 mg PO Q8H PRN (Reason: for pain) Qty: 90 3RF trazodone 150 mg tablet 150 mg PO BEDTIME carvedilol 12.5 mg tablet 12.5 mg PO BID Rx Instructions: must administer with a meal/food - Take 1.5 tablets twice daily oxycodone-acetaminophen [Percocet] 5-325 mg tablet 1 tab PO Q8H PRN (Reason: pain (scale score 4-6)) 7 Days Qty: 21 0RF Rx Instructions: Partial Fill upon patient request. atorvastatin 80 mg tablet 80 mg PO BEDTIME hydroxyzine HCl 50 mg tablet 50 mg PO BEDTIME gabapentin 300 mg capsule 300 mg PO BEDTIME lisinopril-hydrochlorothiazide 20-25 mg tablet 2 tab PO DAILY sertraline 50 mg tablet 50 mg PO DAILY oxycodone-acetaminophen [Percocet] 5-325 mg tablet 1 tab PO Q6H PRN (Reason: pain) Qty: 20 0RF Rx Instructions: Partial Fill upon patient request. diclofenac sodium 75 mg tablet,delayed release (DR/EC) 75 mg PO BID furosemide 20 mg tablet 20 mg PO DAILY doxazosin 4 mg tablet 4 mg PO BEDTIME amlodipine 10 mg tablet 10 mg PO DAILY aspirin 81 mg tablet,delayed release (DR/EC) 81 mg PO DAILY
[2023-04-01 23:58] LABS: Basophils Percent Auto 0.6 % (0-2); Eosinophils Absolute Auto 0.1 X10*3/uL (0.0-0.4); Eosinophils Percent Auto 2.2 % (0-4); Hematocrit 34.5 % (37.0-47.0); Hemoglobin 11.4 g/dl (12.0-16.0); Imm Gran Abs Auto 0.01 X10*3/uL (0.00-0.03); Imm Gran Pct Auto 0.2 % (0.0-0.4); Lymphocytes Absolute Auto 1.9 X10*3/uL (1.2-4.9); Lymphocytes Percent Auto 29.3 % (20-40); Mean Corpuscular Hemoglobin 27.1 pg (27.0-33.0); Mean Corpuscular Volume 81.9 fL (80.0-98.0); Mean Platelet Volume 9.7 fL (9.4-12.3); Monocytes Absolute Auto 0.5 X10*3/uL (0.1-1.2); Monocytes Percent Auto 7.9 % (2-11); Neutrophils Absolute Auto 3.9 x10*3/uL (2.0-8.3); Neutrophils Percent Auto 59.8 % (45-73); Platelet Count 262 X10*3/uL (160-400); Red Blood Count 4.21 X10*6/uL (4.20-5.50); Red Cell Distribution Width 14.6 % (11.0-16.0); White Blood Count 6.5 X10*3/uL (4.8-10.8)
[2023-04-02 00:19] LABS: Anion Gap 14 (12-20); Blood Urea Nitrogen 14 mg/dL (9-16); Calcium 9.1 mg/dL (8.4-10.2); Carbon Dioxide 25 mmol/L (22-29); Chloride 106 mmol/L (96-108); Creatinine Clr Calc Pharmacy 95.7; Estimated Glomerular Filt Rate > 60; Glucose Random 162 mg/dL (60-115); Potassium 3.9 mmol/L (3.3-5.1); Sodium 141 mmol/L (135-145)
[2023-04-02 00:36] LABS: Troponin-I High Sensitivity < 2.7 ng/L (<3.5-17.0)
[2023-04-02] MEDS: Labetalol HCL 100 MG/20 ML VIAL 10 MG IVPUSH (00:45)
[2023-04-02 01:06] VITALS: BP 172/76; PULSE 73; RESP 16; O2SAT 98
[2023-04-02] MEDS: oxyCODONE HCl Immed Release 5 MG TABLET PO (01:45)
== END 2023-04-02 01:56 | disposition home or self-care (01) ==
PROVIDERS: Emergency Provider Emergency Medicine; PCP Internal Medicine
DX: M25.562 Pain in left knee (principal); M25.561 Pain in right knee; I16.0 Hypertensive urgency; I10 Essential (primary) hypertension; Z79.899 Other long term (current) drug therapy
CPT/HCPCS: 36415; 73562; 80048; 84484; 85025; 93005; 96374; 96375; 99284; 99285; J2270

== ENCOUNTER 2023-04-07 | Outpatient (REF) | payer MEDICAID, SELFPAY | END 2023-04-07 00:01 | LOC: CF | PROVIDERS: PCP Internal Medicine; Visit Provider Physician Assistant | DX: M23.92 Unspecified internal derangement of left knee (principal); M25.562 Pain in left knee; M25.561 Pain in right knee; Z98.890 Other specified postprocedural states | CPT/HCPCS: 99213 ==

== ENCOUNTER 2023-04-07 11:56 | Outpatient (AMB) | payer MEDICAID, SELFPAY ==
[2023-04-07 12:27] VITALS: BMI 30.7
--- NOTE | 2023-04-07 12:27 | A.OFFVIS_ITS ---
Intake Vital Signs 04/07/23 12:27 Height 5 ft 6 in Weight 190 lb BMI 30.7 Intake Visit Reasons: ov- Bilateral knee pain Intake Note: Michelle is a 52 year old female who presents today for a follow up appointment for her bilateral knee pain, hx of right knee 01/01/23 NE. Hx of injection 01/30/23. Patient reports her last injection gave her 2 - 3 days of relief. She states that both of her knees are in the same level in pain. Patient reports from her knee down there is some swelling. Allergies No Known Allergies [No Known Allergies*] Allergy (Verified 04/07/23 12:28) HPI ov- Bilateral knee pain HPI Details 52-year-old female, who is [place] speak ing, presents in the office today for a follow up of bilateral knee pain. The patient report her bilateral knees are equal in pain. She claims to have edema from the knee down. Right knee: She is 3 month status post right knee arthroscopy and chondroplasty, which was performed on 01/01/[address] Thompson. Left knee: The patient had a cortisone injection in the left knee on 01/30/2023. She reports the injection gave her 2-3 days of relief. [facility] Medical History TIA (transient ischemic attack) CVA (cerebral vascular accident) Hypertension FH: breast cancer in first degree relative Abnormal Pap smear of cervix Ovarian cyst Depression HTN (hypertension) Surgical History H/O prior ablation treatment Hx of tubal ligation History of removal of ovarian cyst Family History Paternal Aunt Breast cancer Sister Breast cancer, Onset Age: 46 Social History Household Members: Children Housing: Apartment Do you presently have visiting nurse or other home services: No Alcohol intake: never Patient Tobacco Use Status: Never used Tobacco e-Cigarette/Vaping Use: Never Used Advance Directives Date on File: 05/09/21 service: No Current occupational status: disabled Gender identity: Female Review of Systems Const All systems reviewed & are unremarkable except as noted in HPI and below Physical Exam Vital Signs: BMI result Body Mass Index 30.7 Const General: cooperative, healthy appearing and no acute distress Resp Effort & Inspection: normal respiratory effort and able to speak in complete sentences Cardio Rate: regular rate Peripheral pulses: Peripheral pulses 2+ throughout GI Palpation (GI): Soft to palpation Skin Lesions: no lesions Rashes: no rashes Extrem Other: Right knee: Incision site is clean, dry, and intact. No signs of infection. No ecchymosis, erythema, or joint effusion. No tenderness to palpation to the medial or lateral joint lines. Full knee extension and flexion. Negative Viktor's. Negative anterior draw. NVI. Left knee: ROM is 0-100 degrees. Tenderness to palpation globally. Mild to moderate effusion. Assessment & Plan Assessment & Plan (1) S/P right knee arthroscopy: Comment: Right knee arthroscopy and chondroplasty 01/01/2023 [place] Code(s): Z98.890 - Other specified postprocedural states (2) Internal derangement of left knee: Code(s): M23.92 - Unspecified internal derangement of left knee Plan Ms. Yoon is a 52-year-old female, who is [place]amb[place] speaking, presents in the office today for a follow up of bilateral knee pain. The patient report her bilateral knees are equal in pain. She claims to have edema from the knee down. Right knee: She is 3 month status post right knee arthroscopy and chondroplasty, which was performed on 01/01/[address] Thompson. Left knee: The patient had a cortisone injection in the left knee on 01/30/2023. She reports the injection gave her 2-3 days of relief. The patient will be referred to Pain Management for bilateral knee pain for further evaluation of geniculant nerve block. Follow up will be PRN, or sooner if needed. Orders: Referrals Pain Management Referral M23.92 - Unspecified internal derangement of left knee, Z98.890 - Other specified postprocedural states Patient Instructions: Scribed for Flavia Edouard PA-C by Flora Salas medical front desk specialist, on 04/07/2023 at 12:00 pm, EST. Coding Level of Care Code Est Pt Level 3 (78484) Diagnoses S/P right knee arthroscopy Z98.890 Internal derangement of left knee M23.92
== END 2023-04-07 12:55 | disposition home or self-care (01) ==
PROVIDERS: PCP Internal Medicine; Visit Provider Physician Assistant
DX: M23.92 Unspecified internal derangement of left knee (principal); S83.241D Other tear of medial meniscus, current injury, right knee, subsequent encounter
CPT/HCPCS: 99213

== ENCOUNTER 2023-04-11 10:39 | Outpatient (AMB) | payer MEDICAID, SELFPAY ==
--- NOTE | 2023-04-11 10:43 | A.OFFVIS_ITS ---
Intake Vital Signs 04/11/23 10:56 04/11/23 10:58 04/11/23 11:15 Height 5 ft 6 in Weight 190 lb BMI 30.7 BP 242/115 H 231/93 H 208/104 H Blood Pressure Location Rt brachial Lt brachial Lt brachial Position Sitting Sitting Sitting Pulse Source Pulse Oximeter Pulse Oximeter Temp 83 F L Pulse Oximetry (%) 98 Oxygen Delivery Method Room Air Comment bp recheck Manual BP cuff Intake Visit Reasons: Unspecified internal derangement of left knee Intake Note: Pain today 10/10 walking, movements, changing positions, climbing stairs. 6-7/10 sitting, resting. Stamping Operator Required: Yes Stamping Operator Language: Early Childhood Specialist Name: Jose Roberto # [id number] Allergies No Known Allergies [No Known Allergies*] Allergy (Verified 04/11/23 10:47) HPI Unspecified internal derangement of left knee HPI Details Patient is a pleasant 52 years old Mauritian speaking female presents today for bilateral knee pain. Patient was referred to [facility] Orthopedic services. Patient had right knee arthroscopy and chondroplasty on 01/01/[address] Thompson and had left knee cortisone injection on 01/30/23. She reports good relief with injection for only 3 days. Patient reports she has been in significant pain for over one year for both knees, left worse than right. She presents with elevated, asymptomatic BP readings today and attributes this to significant knee pain with walking, climbing or weight bearing. Patient urged to go to ER for evaluation. Patient declined and reports she is compliant with her BP medications which she took this morning. Reports elevated BP readings at home with pain. Discussed importance of BP management especially given history of previous TIA and CVA. Patient has to hold and guard her knees manually as she gets up from sitting position to standing due to unsteadiness r/t knee pain. She has been previously managed her pain with short scripts of oxycodone 5 mg but has to take 2 tabs at once to decrease her pain to 5/10. Pain is constant and is rated 9-10/10 in intensity. Patient is interested to undergo genicular nerve blocks for potential stimulative or ablative treatments for a longer term knee pain relief. Denies any fever, chills, dizziness, chest pain, headache, shortness of breaths, back pain, bladder or bowel dysfunction or saddle anesthesia. Location Bilateral knee pain, left side is worse Duration Chronic pain for >1 year, left knee worse than right Characteristics of symptom or complaint Aching, throbbing, sore, burning, tingling Aggravating or associated factors Movements, walking, climbing stairs, weight bearing Relieving factors Rest, oxycodone, cortisone injection -3 days pain relief, Ibuprofen Treatment PT- finished in January- no improvement, cortisone injections PFSH Medical History TIA (transient ischemic attack) CVA (cerebral vascular accident) Hypertension FH: breast cancer in first degree relative Abnormal Pap smear of cervix Ovarian cyst Depression HTN (hypertension) Surgical History H/O prior ablation treatment Hx of tubal ligation History of removal of ovarian cyst Family History Paternal Aunt Breast cancer Sister Breast cancer, Onset Age: 46 Social History Household Members: Children Housing: Apartment Do you presently have visiting nurse or other home services: No Alcohol intake: never Patient Tobacco Use Status: Never used Tobacco e-Cigarette/Vaping Use: Never Used Advance Directives Date on File: 05/09/21 service: No Current occupational status: disabled Gender identity: Female Review of Systems Const All systems reviewed & are unremarkable except as noted in HPI and below Reports as per HPI, Denies body aches, Denies chills, Reports difficulty sleeping, Reports fatigue, Reports fever(s), Denies frequent falls, Denies malaise and Denies weakness ENT Reports Normal hearing present Card Reports as per HPI, Denies chest pain, Denies chest pain at rest, Denies chest pain with activity, Denies irregular heart rhythm, Denies lightheadedness, Denies dyspnea and Denies dyspnea on exertion Resp Denies dyspnea and Denies dyspnea on exertion Musc Reports as per HPI, Denies back pain, Reports arthralgias, Reports joint swelling, Reports limited range of motion, Denies numbness, Denies radiating pain into limb, Reports stiffness and Reports tingling Neuro Reports Normal hearing present, Denies confusion, Denies frequent falls, Denies numbness, Denies Sensory deficit (Neuro), Reports tingling and Denies weakness Psych Denies confusion Endo Reports fatigue Physical Exam Vital Signs: Last Vital Signs Temp 83 F L 04/11/23 11:15 BP 208/104 H 04/11/23 11:15 Pulse Ox 98 04/11/23 10:56 Oxygen Delivery Method Room Air 04/11/23 10:56 BMI result Body Mass Index 30.7 Const General: cooperative, healthy appearing, alert, awake, in distress (due to knee pain) moderate, anxious and well groomed; No confusion Nutritional Appearance: obese Orientation/consciousness: patient oriented x3 and No confusion Limitations: language barrier HEENT Head: Yes normal to inspection and Yes normocephalic Ears: hearing grossly normal bilaterally Face and sinus: Yes normal facial exam and Yes face symmetric Eyes General: appearance normal, both eyes and all related structures Resp Effort & Inspection: normal respiratory effort, able to speak in complete sentences, no cough and symmetric chest movement Cardio Rate: regular rate Bruits: no carotid bruits Peripheral pulses: Peripheral pulses 2+ throughout GI Inspection: Yes normal to inspection and Yes obesity Palpation (GI): Soft to palpation and no guarding Skin General skin exam: no rashes or lesions noted Lesions: no lesions Rashes: no rashes Neuro General: patient oriented x3, Normal light touch and pain sensation and No confusion Cranial nerves: Yes Normal hearing present Cognition (Neuro): normal cognition Gait exam (Neuro): Antalgic gait present and No Assistive device used Motor exam (neuro): no tremor noted and Motor abnormalities not present Sensory Exam: No Sensory deficit (Neuro) Extrem General: Yes capillary refill normal, Yes no clubbing, cyanosis or edema and Yes no calf tenderness Right lower extremity: knee Details: normal to inspection, tenderness Location: of the medial joint line, normal ROM and crepitus; no swelling, no ecchymosis and no unusual warmth Left lower extremity: knee (Limited ROM due to pain) Details: tenderness Location: of the patella, of the medial joint line and of the lateral joint li ne, swelling (Mild to moderate effusion) and crepitus; no ecchymosis and no unusual warmth Results Reviewed Results Reviewed: 04/01/23 XR/XR knee RT 3V Impression: Extensive bilateral tricompartmental degenerative changes more so in the medial compartments. Bilateral joint effusions are present. No acute fracture or dislocation. 04/01/23 XR/XR knee LT 3V Impression: Extensive bilateral tricompartmental degenerative changes more so in the medial compartments. Bilateral joint effusions are present. No acute fracture or dislocation. 12/09/22 XR/XR knee LT 3V IMPRESSION: 1. Large suprapatellar joint effusion with a moderate-sized anterior superior patellar enthesophyte. 2. Mild degenerative changes medial and patellofemoral compartment. 3. No acute fracture or dislocation seen. Assessment & Plan Assessment & Plan (1) Internal derangement of left knee: Code(s): M23.92 - Unspecified internal derangement of left knee (2) S/P right knee arthroscopy: Comment: Right knee arthroscopy and chondroplasty 01/01/2023 [place] Code(s): Z98.890 - Other specified postprocedural states (3) Bilateral knee pain: Code(s): M25.561 - Pain in right knee; M25.562 - Pain in left knee (4) HTN (hypertension): Code(s): I10 - Essential (primary) hypertension Plan 1. Schedule Bilateral Diagnostic Saphenous Nerve Blocks at the adductor canal with local and US guidance. If positive response, will consider Sprint PNS trial as first option, and genicular RFA as back up option. Informational pamphlets provided in Mauritian. Expectations, risks and benefits were reviewed. Patient is aware she will be contacted to schedule this procedure. 2. Will change gabapentin to BID. Also short script provided for oxycodone 10 mg #30 tabs for severe pain while awaiting PA for bilateral knee nerve blocks. [facility] reviewed for previous scripts for oxycodone and results are consistent with patient's history intake. Side effects and precautions reviewed for both medications, which patient has tolerated well before. 3. Patient will continue to monitor her BP at home and notify her PCP for any sustained elevated BP readings. Patient declined medical evaluation at ER today for significant, asymptomatic BP readings. All questions and concerns have been answered and patient agreed with the plan. Follow up after injections and sooner as needed. Medications: New oxycodone Partial Fill upon patient request. 10 mg PO Q12H 15 days PRN 30 tabs 0RF pain M23.92 - Unspecified internal derangement of left knee, M25.561 - Pain in right knee, M25.562 - Pain in left knee, Z98.890 - Other specified postprocedural states Changed From gabapentin 300 mg PO BEDTIME M23.92 - Unspecified internal derangement of left knee, M25.561 - Pain in right knee, M25.562 - Pain in left knee, Z98.890 - Other specified postprocedural states To gabapentin 300 mg PO BID 30 days 60 caps 1RF pain M23.92 - Unspecified internal derangement of left knee, M25.561 - Pain in right knee, M25.562 - Pain in left knee, Z98.890 - Other specified postprocedural states Discontinued oxycodone-acetaminophen 5-325 mg (Percocet) Partial Fill upon patient request. Discontinued Reason: Patient no longer taking 1 tab PO Q8H 7 days PRN 21 tabs 0RF pain (scale score 4-6) oxycodone-acetaminophen 5-325 mg (Percocet) Partial Fill upon patient request. Discontinued Reason: Patient no longer taking 1 tab PO Q6H PRN 20 tabs 0RF pain oxycodone Partial Fill upon patient request. Discontinued Reason: Patient no longer taking 5 mg PO BID PRN 7 tabs 0RF pain Coding Level of Care Code New Pt Level 4 (46323) Diagnoses Internal derangement of left knee M23.92 S/P right knee arthroscopy Z98.890 Bilateral knee pain M25.561; M25.562 HTN (hypertension) I10
[2023-04-11 10:56] VITALS: BP 242/115; O2SAT 98; BMI 30.7
[2023-04-11 10:58] VITALS: BP 231/93
[2023-04-11 11:15] VITALS: BP 208/104; TEMP 28.3
== END 2023-04-11 11:20 | disposition home or self-care (01) ==
PROVIDERS: PCP Internal Medicine; Visit Provider Nurse Practitioner Family
DX: M23.92 Unspecified internal derangement of left knee (principal); Z98.890 Other specified postprocedural states; M25.561 Pain in right knee; M25.562 Pain in left knee; I10 Essential (primary) hypertension
CPT/HCPCS: 99204

== ENCOUNTER → 2023-04-11 10:39 | Outpatient (BNVA) | payer MEDICAID, SELFPAY | PROVIDERS: PCP Internal Medicine; Visit Provider Nurse Practitioner Family | DX: M23.92 Unspecified internal derangement of left knee (principal); M25.562 Pain in left knee; M25.561 Pain in right knee; I10 Essential (primary) hypertension | CPT/HCPCS: 99212 ==

== ENCOUNTER 2023-04-16 14:36 | Outpatient (REF) | payer MEDICAID, SELFPAY ==
[2023-04-18 11:33] LABS: TS Negative Control Passed; TS Panel A 0; TS Panel B 0; TS Positive Control Passed; TSpotTB Negative (Negative)
== END 2023-04-16 14:37 | disposition home or self-care (01) ==
LOC: HO.LAB 14:36
PROVIDERS: PCP Internal Medicine; Visit Provider Internal Medicine
DX: Z11.1 Encounter for screening for respiratory tuberculosis (principal)
CPT/HCPCS: 36415; 86481

== ENCOUNTER 2023-05-02 10:53 | Outpatient (AMB) | payer MEDICAID, SELFPAY ==
--- NOTE | 2023-05-02 11:42 | A.OFFVIS_ITS ---
Intake Intake Visit Reasons: RIGHT DIAGNOSTIC SNB AT ADDUCTOR CANAL Allergies No Known Allergies [No Known Allergies*] Allergy (Verified 04/11/23 10:47) HPI RIGHT DIAGNOSTIC SNB AT ADDUCTOR CANAL HPI Details 52-year-old female who presents today to the office for a right diagnostic SNB at adductor canal. Denies any recent cough, cold, infection, fever or other significant changes in medical history since last office visit. PFSH Medical History TIA (transient ischemic attack) CVA (cerebral vascular accident) Hypertension FH: breast cancer in first degree relative Abnormal Pap smear of cervix Ovarian cyst Depression HTN (hypertension) Surgical History H/O prior ablation treatment Hx of tubal ligation History of removal of ovarian cyst Family History Paternal Aunt Breast cancer Sister Breast cancer, Onset Age: 46 Social History Household Members: Children Housing: Apartment Do you presently have visiting nurse or other home services: No Alcohol intake: never Patient Tobacco Use Status: Never used Tobacco e-Cigarette/Vaping Use: Never Used Advance Directives Date on File: 05/09/21 service: No Current occupational status: disabled Gender identity: Female Review of Systems Const All systems reviewed & are unremarkable except as noted in HPI and below Physical Exam General: Appears afebrile. Alert and oriented. Mood and affect appropriate. Follows and participates in conversation appropriately. Respiratory effort is unlabored. Able to transition from sit to stand unassisted. Ambulates with bilaterally normal heel strike and toe off. Office Procedures Nerve Block Details: Right diagnostic SNB at adductor canal, ultrasound guided. After obtaining written consent, pre-procedure blood pressure and heart rate were stable and recorded in the nursing record. The patient was placed supine on the table. The medial thigh area overlying the adductor canal was widely prepped with chloraprep, allowed to dry and sterilely draped. Using ultrasound, the appropriate landmarks including the femoral artery and saphenous nerve were identified. The skin overlying the target was anesthetized with 1% lidocaine. A 21 gauge 100 mm echostim needle was advanced under sonographic guidance to the adductor canal. Aspiration was negative for heme and synovial fluid. 10 cc of lidocaine 1% was injected around the saphenous nerve. The needles were removed, skin cleansed and a sterile bandage was applied. The patient tolerated the procedure well and no complications were encountered. Following the procedure the patient's vital signs and knee strength were stable. The patient was discharged home in good condition with post-procedural instructions. Time Out: Immediately prior to the procedure, the following was verbally confirmed that there is a signed consent form and that the correct patient, planned procedure, site and side are consistent with documentation and that necessary equipment and/or blood products are available prior to the start of the case. Complications: none EBL: <1 cc Note: An ultrasound image of the injection was taken and stored in the permanent record. [id number] - Saphenous (ultrasound guided) Procedure code (CPT) selection complete Results Reviewed Results Reviewed: No imaging is available for review. Assessment & Plan Assessment & Plan (1) Osteoarthritis of right knee: Code(s): M17.11 - Unilateral primary osteoarthritis, right knee Plan Patient is status post right diagnostic SNB at adductor canal under ultrasound guided. Patient tolerated procedure well and was discharged home in stable condition with discharge instructions. All questions were answered. We will follow-up in two weeks via telephone or in clinic to assess response to therapy. A follow-up appointment was made during today's visit. Scribed for Dr. Obrien by Ky Mari, territory sales manager medical, on 05/02/2023. I, Dr. Obrien, have personally reviewed and agree with the information entered by the scribe. Coding Level of Care Code Procedure Only Diagnoses Osteoarthritis of right knee M17.11 CPT Codes Nerve Block - Nerve Block 10: 76313 - Saphenous ([id number])
== END 2023-05-02 11:55 | disposition home or self-care (01) ==
PROVIDERS: PCP Internal Medicine; Visit Provider Internal Medicine
DX: M17.11 Unilateral primary osteoarthritis, right knee (principal)
CPT/HCPCS: 64450; 76942

== ENCOUNTER → 2023-05-02 10:53 | Outpatient (BNVA) | payer MEDICAID, SELFPAY | PROVIDERS: PCP Internal Medicine; Visit Provider Internal Medicine | DX: M17.11 Unilateral primary osteoarthritis, right knee (principal) | CPT/HCPCS: 64450 ==

== ENCOUNTER 2023-05-07 15:45 | Emergency (ER) | payer MEDICAID, SELFPAY ==
--- NOTE | ~2023-05-07 | CT_ITS ---
EXAMINATION: CT ABDOMEN AND PELVIS WITHOUT CONTRAST CLINICAL INFORMATION: Diffuse abdominal pain. Bright red blood per rectum. COMPARISON: Previous renal ultrasound October [address] January 2019 the abdomen TECHNIQUE: Multidetector volumetric imaging was performed from the superior aspect of the liver through the pubic symphysis. Sagittal and coronal reformatted images were obtained on the technologist's workstation. This CT examination was performed using dose optimization techniques as appropriate, variously including the following: *Automated exposure control *Adjustment of mA and/or kV according to patient size (this includes techniques or standardized protocols for targeted exams where dose is matched to indication/reason for exam; i.e. extremities or head) *Use of iterative reconstruction technique DLP: 611 mGy-cm FINDINGS: LUNG BASES: Heterogeneous attenuation of the lung bases probably representing hypoventilatory changes. LIVER, GALLBLADDER, AND BILIARY TREE: The liver is enlarged, right lobe measuring 23 cm in length.. No focal hepatic lesion or biliary ductal dilatation is present. The gallbladder is unremarkable with no evidence of radiopaque gallstones, gallbladder wall thickening, or obvious pericholecystic inflammatory changes. PANCREAS: Unremarkable. SPLEEN: Unremarkable. ADRENAL GLANDS: Unremarkable. KIDNEYS AND URETERS: The kidneys are normal in size, shape, and attenuation. No hydronephrosis, hydroureter, or calculi seen. No perinephric stranding. BLADDER: Unremarkable. GASTROINTESTINAL TRACT: The small and large bowel are unremarkable. The appendix is not seen. No inflammatory changes in the right lower quadrant. ABDOMINAL WALL: No significant hernia is appreciated. LYMPH NODES: Small retroperitoneal lymph nodes. No enlarged nodes. VASCULAR: Small 8 mm splenic artery aneurysm similar in size to 2019. PELVIC VISCERA: Small amount of fluid in the pelvis. Low-attenuation seen centrally in the uterus questionable for endometrial fluid or thickening. 1.4 cm in dimension. Correlation with menstrual history recommended. Uterus and adnexa are otherwise unremarkable. OSSEOUS STRUCTURES: Degenerative changes of the spine. AVN of the left femoral head. CT/CT abdomen pelvis wo IV con IMPRESSION: No acute findings. Enlarged liver. Stable small splenic artery aneurysm. Fleischner guidelines were followed.
[2023-05-07 16:08] VITALS: BP 220/93; PULSE 88; RESP 18; TEMP 37.3; O2SAT 97; BMI 31.0
--- NOTE | 2023-05-07 16:08 | ED.ABDPAIN ---
HPI - Abdominal Pain General Chief Complaint: GI Bleed Stated Complaint: abdominal pain Time Seen by Provider: 05/07/23 19:09 Source: patient Mode of arrival: ambulatory Limitations: no limitations History of Present Illness HPI narrative: When patient had to urinate she noted bleeding from her rectum. She went to the bathroom again and blood was dripping into the toilet. patient with some crampy pain, no rectal pain. Patient denies constipation or diarrhea. MD elicited complaint: abdominal pain Pertinent past history: none Onset (ago): hour(s) Pain Consistency: constant Severity: mild Related Data Home Medications Medication Instructions Recorded Confirmed amlodipine 10 mg tablet 10 mg PO DAILY 05/27/22 01/01/23 diclofenac sodium 75 mg 75 mg PO BID 05/27/22 01/01/23 tablet,delayed release doxazosin 4 mg tablet 4 mg PO BEDTIME 05/27/22 01/01/23 furosemide 20 mg tablet 20 mg PO DAILY 05/27/22 01/01/23 atorvastatin 80 mg tablet 80 mg PO BEDTIME 10/29/22 01/01/23 hydroxyzine HCl 50 mg tablet 50 mg PO BEDTIME 10/29/22 01/01/23 lisinopril 20 2 tab PO DAILY 10/29/22 01/01/23 mg-hydrochlorothiazide 25 mg tablet sertraline 50 mg tablet 50 mg PO DAILY 10/29/22 01/01/23 aspirin 81 mg tablet,delayed 81 mg PO DAILY 12/10/22 01/01/23 release trazodone 150 mg tablet 150 mg PO BEDTIME 12/10/22 01/01/23 carvedilol 12.5 mg tablet 12.5 mg PO BID 12/30/22 01/01/23 Previous Rx's Medication Instructions Recorded ibuprofen 800 mg tablet 800 mg PO Q8H PRN for pain #90 tabs 01/22/23 carvedilol 25 mg tablet 25 mg PO BID #60 tabs 04/02/23 furosemide 40 mg tablet (Lasix) 40 mg PO DAILY #4 tabs 04/02/23 gabapentin 300 mg capsule 300 mg PO BID pain 30 days #60 caps 04/11/23 oxycodone 10 mg tablet 10 mg PO Q12H PRN pain 15 days #30 04/11/23 tabs docusate sodium 100 mg capsule 100 mg PO DAILY #14 caps 05/07/23 (Colace) psyllium husk 3.4 gram/5.4 gram 1 tsp PO DAILY #660 grams 05/07/23 oral powder (Metamucil) Allergies Allergy/AdvReac Type Severity Reaction Status Date / Time No Known Allergies Allergy Verified 04/11/23 10:47 [No Known Allergies*] Review of Systems Review of Systems Yes all other systems are reviewed and are negative Denies Sensory deficit (Neuro) PMFSH Past Medical History Medical History TIA (transient ischemic attack) CVA (cerebral vascular accident) Hypertension FH: breast cancer in first degree relative Abnormal Pap smear of cervix Ovarian cyst Depression HTN (hypertension) Surgical History H/O prior ablation treatment Hx of tubal ligation History of removal of ovarian cyst Family History Family History Paternal Aunt Breast cancer Sister Breast cancer, Onset Age: 46 Social History Social History Household Members: Children Housing: Apartment Do you presently have visiting nurse or other home services: No Alcohol intake: never Patient Tobacco Use Status: Never used Tobacco e-Cigarette/Vaping Use: Never Used Advance Directives: Yes Advance Directives on File: Yes Advance Directives Date on File: 05/09/21 service: No Current occupational status: disabled Gender identity: Female Physical Exam ED Vital Signs: Vital Signs - 24 hr 05/07/23 16:08 Temperature 99.2 F Pulse Rate 88 Respiratory Rate 18 Blood Pressure 220/93 H Pulse Oximetry 97 Oxygen Delivery Method Room Air BMI result Body Mass Index 31.0 Const Other: obese female anxious General: healthy appearing Nutritional Appearance: obese Orientation/consciousness: oriented to person and patient oriented x3 Limitations: no limitations HENMT Head: Yes normal to inspection Ears: external ears normal General nose exam: Normal external nose present Mouth: Normal oral and palatal mucosa present and oropharynx normal Throat: Yes posterior oropharynx normal Eyes General: appearance normal, both eyes and all related structures Neck Neck: Yes normal visual inspection Chest Chest palpation & inspection: normal inspection of the chest Resp Auscultation: clear to auscultation bilaterally Cardio Jugular venous distension: no JVD Rate: regular rate Rhythm: regular rhythm Heart sounds: S1 normal heart sound present and S2 normal heart sound present GI Inspection: Yes normal to inspection Palpation (GI): Soft to palpation, nontender and No hepatosplenomegaly present Auscultation: normal bowel sounds Other: rectal with hemorrhoids and rectal fissure, no active bleeding currently General: Yes no CVA tenderness Back/Spine/Pelvis Back: no CVA tenderness Skin General skin exam: no rashes or lesions noted Neuro General: oriented to person and patient oriented x3 Cranial nerves: Yes CN's II-XII intact bilaterally Motor exam (neuro): 5/5 motor strength present throughout Sensory Exam: No Sensory deficit (Neuro) Extrem General: Yes normal to inspection Psych Appearance: grossly normal Course Course Course Narrative: RME - 52 yo Italian speaking female with history of CVA, HTN, HLD who presents to the ER for evaluation of 2-3 days of diffuse 8/10 abdominal pain radiating to her back with new onset of BRBPR x4-5 times today when she wipes. Not on blood thinner. Pain mostly in the lower abdomen. Plan: labs and CT scan abd/pelvis Reevaluation(s) Reevaluation #1: patient with rectal fissure and hemorrhoids, nontender abdomen, CT negative will dc on stool softner and metamucil Time: 19:47 Medical Decision Making Differential Diagnosis Differential Diagnoses: The differential diagnosis associated with the presentation includes (GI mass, diverticulosis, diverticulitis, rectal hemorrhoids, rectal fissure) Admission/Observation Consideration of admission/observation: Escalation of care including admission/observation considered (upon arrival patient was considered for admission) Lab Data MDM Lab Attestation statement: I reviewed the patient's lab results. (slight anemia which is chronic) 05/07/23 17:02 05/07/23 17:02 Labs: Lab Results 05/07/23 05/07/23 Range/Units 17:02 17:07 WBC 6.4 (4.8-10.8) X10*3/uL RBC 4.46 (4.20-5.50) X10*6/uL Hgb 12.1 (12.0-16.0) g/dl Hct 36.5 L (37.0-47.0) % MCV 81.8 (80.0-98.0) fL MCH 27.1 (27.0-33.0) pg MCHC 33.2 (31.0-35.0) g/dl RDW 13.9 (11.0-16.0) % Plt Count 247 (160-400) X10*3/uL MPV 10.0 (9.4-12.3) fL Immature Gran % (Auto) 0.3 (0.0-0.4) % Neut % (Auto) 61.0 (45-73) % Lymph % (Auto) 29.8 (20-40) % Cannon % (Auto) 6.4 (2-11) % Eos % (Auto) 1.9 (0-4) % Baso % (Auto) 0.6 (0-2) % Lymph # (Auto) 1.9 (1.2-4.9) X10*3/uL Cannon # (Auto) 0.4 (0.1-1.2) X10*3/uL Eos # (Auto) 0.1 (0.0-0.4) X10*3/uL Baso # (Auto) 0.0 (0.0-0.2) X10*3/uL Abs Immat Gran (auto) 0.02 (0.00-0.03) X10*3/uL Absolute Neuts (auto) 3.9 (2.0-8.3) x10*3/uL Absolute Nucleated RBC 0.000 (0.0-0.012) X10*3/uL Nucleated RBC % (auto) 0.0 (0.0-0.2) /100WBC Sodium 141 (135-145) mmol/L Potassium 4.0 (3.3-5.1) mmol/L Chloride 105 (96-108) mmol/L Carbon Dioxide 27 (22-29) mmol/L Anion Gap 13 (12-20) BUN 18 H (9-16) mg/dL Creatinine 0.84 (0.5-1.4) mg/dL Estim Creat Clear Calc 87.0 Estimated GFR > 60 Random Glucose 108 (60-115) mg/dL Calcium 9.8 D (8.4-10.2) mg/dL Magnesium 2.0 (1.6-2.6) mg/dL Total Bilirubin 0.2 (0.0-1.0) mg/dL Direct Bilirubin < 0.2 (0.0-0.5) mg/dL AST 19 (5-31) U/L ALT 28 (0-31) U/L Alkaline Phosphatase 85 (39-117) U/L Total Protein 7.4 (6.5-8.0) g/dL Albumin 4.2 (3.5-5.0) g/dL Urine Color Yellow Urine Appearance Clear Urine pH 7.5 (5.0-9.0) Ur Specific [place] 1.020 (1.005-1.025) Urine Protein Negative (Neg-Trace) mg/dL Urine Glucose (UA) Negative (Negative) mg/dL Urine Ketones Negative (Negative) mg/dL Urine Blood Negative (Negative) Urine Nitrite Negative (Negative) Ur Leukocyte Esterase Trace H (Negative) Urine RBC 0-2 (0-2) /HPF Urine WBC 6-10 H (0-5) /HPF Ur Squamous Epith Cells 3-5 (0-2) /HPF Urine Bacteria 1+ (None Seen) Hyaline Casts 3-5 (0-2) /LPF Independent Interpretation I performed an independent interpretation of an: CT Scan (no diverticulitis) Radiology Impression Discussion of test interpretation with radiology: I have reviewed the radiologist's reading. (fatty liver) Independent Historian Clinical information obtained from an independent historian. History obtained from or confirmed by: Other (daughter) Prescription Management I considered prescription management with: Antibiotic (no infection seen) Chronic Conditions Patient?s care impacted by: Hypertension Discharge Plan Discharge Clinical Impression: Hemorrhoids, Anal fissure Patient Disposition: Home, Self-Care Instructions: Hemorrhoids (ED), Rectal Bleeding (ED), Anal Fissure (ED) Prescriptions: New docusate sodium [Colace] 100 mg capsule 100 mg PO DAILY Qty: 14 0RF Metamucil 3.4 gram/5.4 gram powder 1 tsp PO DAILY Qty: 660 0RF Rx Instructions: mix into at least 4 oz water or juice before administering No Action ibuprofen 800 mg tablet 800 mg PO Q8H PRN (Reason: for pain) Qty: 90 3RF trazodone 150 mg tablet 150 mg PO BEDTIME carvedilol 12.5 mg tablet 12.5 mg PO BID Rx Instructions: must administer with a meal/food - Take 1.5 tablets twice daily carvedilol 25 mg tablet 25 mg PO BID Qty: 60 1RF Rx Instructions: must administer with a meal/food furosemide [Lasix] 40 mg tablet 40 mg PO DAILY Qty: 4 0RF atorvastatin 80 mg tablet 80 mg PO BEDTIME hydroxyzine HCl 50 mg tablet 50 mg PO BEDTIME lisinopril-hydrochlorothiazide 20-25 mg tablet 2 tab PO DAILY sertraline 50 mg tablet 50 mg PO DAILY diclofenac sodium 75 mg tablet,delayed release (DR/EC) 75 mg PO BID furosemide 20 mg tablet 20 mg PO DAILY doxazosin 4 mg tablet 4 mg PO BEDTIME amlodipine 10 mg tablet 10 mg PO DAILY aspirin 81 mg tablet,delayed release (DR/EC) 81 mg PO DAILY gabapentin 300 mg capsule 300 mg PO BID 30 Days Qty: 60 1RF oxycodone 10 mg tablet 10 mg PO Q12H PRN (Reason: pain) 15 Days Qty: 30 0RF Rx Instructions: Partial Fill upon patient request.
--- NOTE | 2023-05-07 17:07 | MHC.EDTECH ---
PATIENT BLOOD DRAWN AND URINE SAMPLE COLLECTED AND SENT TO LAB .
[2023-05-07 17:08] LABS: MANUAL DIFF FLAG NO
[2023-05-07 17:16] LABS: Basophils Percent Auto 0.6 % (0-2); Eosinophils Absolute Auto 0.1 X10*3/uL (0.0-0.4); Eosinophils Percent Auto 1.9 % (0-4); Hematocrit 36.5 % (37.0-47.0); Hemoglobin 12.1 g/dl (12.0-16.0); Imm Gran Abs Auto 0.02 X10*3/uL (0.00-0.03); Imm Gran Pct Auto 0.3 % (0.0-0.4); Lymphocytes Absolute Auto 1.9 X10*3/uL (1.2-4.9); Lymphocytes Percent Auto 29.8 % (20-40); Mean Corpuscular HGB Conc 33.2 g/dl (31.0-35.0); Mean Corpuscular Hemoglobin 27.1 pg (27.0-33.0); Mean Corpuscular Volume 81.8 fL (80.0-98.0); Monocytes Absolute Auto 0.4 X10*3/uL (0.1-1.2); Monocytes Percent Auto 6.4 % (2-11); Neutrophils Absolute Auto 3.9 x10*3/uL (2.0-8.3); Platelet Count 247 X10*3/uL (160-400); Red Blood Count 4.46 X10*6/uL (4.20-5.50); Red Cell Distribution Width 13.9 % (11.0-16.0); White Blood Count 6.4 X10*3/uL (4.8-10.8)
[2023-05-07 17:24] LABS: Alanine Aminotransferase 28 U/L (0-31); Albumin Level 4.2 g/dL (3.5-5.0); Alkaline Phosphatase 85 U/L (39-117); Anion Gap 13 (12-20); Aspartate Amino Transferase 19 U/L (5-31); Bilirubin Direct < 0.2 mg/dL (0.0-0.5); Bilirubin Total 0.2 mg/dL (0.0-1.0); Blood Urea Nitrogen 18 mg/dL (9-16); Calcium 9.8 mg/dL (8.4-10.2); Carbon Dioxide 27 mmol/L (22-29); Chloride 105 mmol/L (96-108); Estimated Glomerular Filt Rate > 60; Glucose Random 108 mg/dL (60-115); Sodium 141 mmol/L (135-145); Total Protein 7.4 g/dL (6.5-8.0)
[2023-05-07 17:26] LABS: Appearance Urine Clear; Color Urine Yellow; Glucose Urine UA Negative (Negative); Leukocyte Esterase Urine Trace (Negative); Nitrite Urine Negative (Negative); PH 7.5 (5.0-9.0); UMIC TRIGGER UACC YES; Urine Blood Negative (Negative); Urine Ketones Negative (Negative); Urine Protein Negative (Neg-Trace)
[2023-05-07 17:29] LABS: Bacteria Urine 1+ (None Seen); RBC Urine 0-2 /HPF (0-2); UACC Culture Trigger YES
--- NOTE | 2023-05-07 20:05 | PC.NURSE ---
PT DENIES ANY ACTIVE BLEEDING AT D/C
== END 2023-05-07 20:06 | disposition home or self-care (01) ==
PROVIDERS: Physician Assistant; Emergency Provider Emergency Medicine; PCP Internal Medicine
DX: K64.9 Unspecified hemorrhoids (principal); K62.5 Hemorrhage of anus and rectum; K60.2 Anal fissure, unspecified; Z79.899 Other long term (current) drug therapy
CPT/HCPCS: 36415; 74176; 80048; 80076; 81001; 83735; 85025; 87086; 99284

== ENCOUNTER 2023-05-09 11:20 | Outpatient (AMB) | payer MEDICAID, SELFPAY ==
--- NOTE | 2023-05-09 12:05 | MHC.OFFVIS ---
Intake Vital Signs 05/09/23 12:07 Height 5 ft 6 in Weight 192 lb BMI 31.0 Blood Pressure Location Lt brachial Position Sitting Respiration 14 Pulse 79 Pulse Source Pulse Oximeter Pulse Oximetry (%) 99 Oxygen Delivery Method Room Air Intake Visit Reasons: LEFT DX SNB AT ADDUCTOR CANAL/CONFIRMED Allergies No Known Allergies [No Known Allergies*] Allergy (Verified 04/11/23 10:47) HPI LEFT DX SNB AT ADDUCTOR CANAL/CONFIRMED HPI Details 52-year-old female who presents today to the office for a left diagnostic SNB at adductor canal. A certified body presser was present during the visit. Denies any recent cough, cold, infection, fever or other significant changes in medical history since last office visit. The patient reports 70-80% relief following the procedure for about 3-4 hours. Past procedure: 05/02/23: Right diagnostic SNB at adductor canal under ultrasound guided: 80% relief for about 3-4 hours. [facility] Medical History TIA (transient ischemic attack) CVA (cerebral vascular accident) Hypertension FH: breast cancer in first degree relative Abnormal Pap smear of cervix Ovarian cyst Depression HTN (hypertension) Surgical History H/O prior ablation treatment Hx of tubal ligation History of removal of ovarian cyst Family History Paternal Aunt Breast cancer Sister Breast cancer, Onset Age: 46 Social History Household Members: Children Housing: Apartment Do you presently have visiting nurse or other home services: No Alcohol intake: never Patient Tobacco Use Status: Never used Tobacco e-Cigarette/Vaping Use: Never Used Advance Directives Date on File: 05/09/21 service: No Current occupational status: disabled Gender identity: Female Review of Systems Const All systems reviewed & are unremarkable except as noted in HPI and below Physical Exam Vital Signs: Last Vital Signs Pulse 79 05/09/23 12:07 Resp 14 05/09/23 12:07 Pulse Ox 99 05/09/23 12:07 Oxygen Delivery Method Room Air 05/09/23 12:07 BMI result Body Mass Index 31.0 General: Appears afebrile. Alert and oriented. Mood and affect appropriate. Follows and participates in conversation appropriately. Respiratory effort is unlabored. Able to transition from sit to stand unassisted. Ambulates with bilaterally normal heel strike and toe off. Office Procedures Nerve Block Details: Left diagnostic SNB at adductor canal, ultrasound guided. After obtaining written consent, pre-procedure blood pressure and heart rate were stable and recorded in the nursing record. The patient was placed supine on the table. The medial thigh area overlying the adductor canal was widely prepped with chloraprep, allowed to dry and sterilely draped. Using ultrasound, the appropriate landmarks including the femoral artery and saphenous nerve were identified. The skin overlying the target was anesthetized with 1% lidocaine. A 21 gauge 100 mm echostim needle was advanced under sonographic guidance to the adductor canal. Aspiration was negative for heme and synovial fluid. 10 cc of lidocaine 1% was injected around the saphenous nerve. The needles were removed, skin cleansed and a sterile bandage was applied. The patient tolerated the procedure well and no complications were encountered. Following the procedure the patient's vital signs and knee strength were stable. The patient was discharged home in good condition with post-procedural instructions. Time Out: Immediately prior to the procedure, the following was verbally confirmed that there is a signed consent form and that the correct patient, planned procedure, site and side are consistent with documentation and that necessary equipment and/or blood products are available prior to the start of the case. Complications: none EBL: <1 cc Note: An ultrasound image of the injection was taken and stored in the permanent record. 31648 - Saphenous (Left) Procedure code (CPT) selection complete Results Reviewed Results Reviewed: No imaging is available for review. Assessment & Plan Assessment & Plan (1) Left knee pain: Code(s): M25.562 - Pain in left knee Plan Patient is status post left diagnostic SNB at adductor canal. Patient tolerated procedure well and was discharged home in stable condition with discharge instructions. All questions were answered. We will follow-up in two weeks via telephone or in clinic to assess response to therapy. A follow-up appointment was made during today's visit. Scribed for Dr. Obrien by [place] [facility] medical surgical tech, on 05/09/2023. I, Dr. Obrien, have personally reviewed and agree with the information entered by the scribe. Coding Level of Care Code Procedure Only Diagnoses Left knee pain M25.562 CPT Codes Nerve Block - Nerve Block 10: 36158 - Saphenous ([id number])
[2023-05-09 12:07] VITALS: PULSE 79; RESP 14; O2SAT 99; BMI 31.0
== END 2023-05-09 12:26 | disposition home or self-care (01) ==
PROVIDERS: PCP Internal Medicine; Visit Provider Internal Medicine
DX: M25.562 Pain in left knee (principal)
CPT/HCPCS: 64450; 76942

== ENCOUNTER → 2023-05-09 11:20 | Outpatient (BNVA) | payer MEDICAID, SELFPAY | PROVIDERS: PCP Internal Medicine; Visit Provider Internal Medicine | DX: M25.562 Pain in left knee (principal) | CPT/HCPCS: 64450 ==

== ENCOUNTER 2023-05-16 13:31 | Outpatient (AMB) | payer MEDICAID, SELFPAY ==
--- NOTE | 2023-05-16 13:33 | A.OFFVIS_ITS ---
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 Obrien. Patient reports 90% pain relief on the right for 4 days with ongoing 50% pain relief. However, no pain relief on the left. She continues to walk with antalgic gait with moderate limping favoring right side. Patient reports global left knee pain and reports Tylenol and Ibuprofen for left hip pain which partially alleviate her left hip pain but not left knee. She reports mild to moderate pain relief with short script of oxycodone that I provided to her at previous office visit for severe left knee pain. Patient reports right knee has been doing better since diagnostic injections and does not need to proceed with further interventions at this time. She is concerned for ongoing and worsening pain in her left knee which affects her walking capacity, mobility, climbing stairs, ADLs, functioning and sleep. She denies significant left hip pain. Recent CT scan abdomen and pelvis showed AVN of left femoral head. Previous imaging is noted that this was present in 2019. We will proceed with left knee MRI and left hip xray imaging. Patient will follow up with Orthopedic provider for further evaluation. May consider left femoral nerve block if no significant findings per left knee MRI. Patient currently does not work, she is on permanent disability with history of 3 strokes (CVAs and TIA), memory and visual function disrupted as well. Patient lives in an apartment on the 3rd floor with no elevator access, she lives with her adult daughter who is cognitively disabled. Patient has supportive adult son who also comes by during the day to help her out. Current pain level right knee rated at 5/10 and left knee at 10/10. Past Procedures: 05/09/23: Diagnostic Left SNB at adducto r canal-0% pain relief 05/02/23: Diagnostic Right SNB at adduct or canal-90% pain relief for 4 days, ongoing 50% pain relief PRIOR: Patient is a pleasant 52 years old [place] speaking female presents today for bilateral knee pain. Patient was referred to [facility] Orthopedic services. Patient had right knee arthroscopy and chondroplasty on 01/01/[address] Thompson and had left knee cortisone injection on 01/30/23. She reports good relief with injection for only 3 days. Patient reports she has been in significant pain for over one year for both knees, left worse than right. She presents with elevated, asymptomatic BP readings today and attributes this to significant knee pain with walking, climbing or weight bearing. Patient urged to go to ER for evaluation. Patient declined and reports she is compliant with her BP medications which she took this morning. Reports elevated BP readings at home with pain. Discussed importance of BP management especially given history of previous TIA and CVA. Patient has to hold and guard her knees manually as she gets up from sitting position to standing due to unsteadiness r/t knee pain. She has been previously managed her pain with short scripts of oxycodone 5 mg but has to take 2 tabs at once to decrease her pain to 5/10. Pain is constant and is rated 9-10/10 in intensity. Patient is interested to undergo genicular nerve blocks for potential stimulative or ablative treatments for a longer term knee pain relief. Denies any fever, chills, dizziness, chest pain, headache, shortness of breaths, back pain, bladder or bowel dysfunction or saddle anesthesia. Location Bilateral knee pain, left side is worse Duration Chronic pain for >1 year, left knee worse than right Characteristics of symptom or complaint Aching, throbbing, sore, burning, tingling Aggravating or associated factors Movements, walking, climbing stairs, weight bearing Relieving factors Rest, oxycodone, cortisone injection -3 days pain relief, Ibuprofen Treatment PT- finished in January- no improvement, cortisone injections [facility] Medical History TIA (transient ischemic attack) CVA (cerebral vascular accident) Hypertension FH: breast cancer in first degree relative Abnormal Pap smear of cervix Ovarian cyst Depression HTN (hypertension) Surgical History H/O prior ablation treatment Hx of tubal ligation History of removal of ovarian cyst Family History Paternal Aunt Breast cancer Sister Breast cancer, Onset Age: 46 Social History Household Members: Children Housing: Apartment Do you presently have visiting nurse or other home services: No Alcohol intake: never Patient Tobacco Use Status: Never used Tobacco e-Cigarette/Vaping Use: Never Used Advance Directives Date on File: 05/09/21 service: No Current occupational status: disabled Gender identity: Female Review of Systems Const All systems reviewed & are unremarkable except as noted in HPI and below Physical Exam Vital Signs: Last Vital Signs Pulse 97 05/16/23 13:39 BP 221/109 H 05/16/23 13:40 Pulse Ox 99 05/16/23 13:39 Oxygen Delivery Method Room Air 05/16/23 13:39 BMI result Body Mass Index 30.7 General: Appears afebrile. Alert and oriented. Mood and affect appropriate. Follows and participates in conversation appropriately. Respiratory effort is unlabored. No cough. Able to transition from sit to stand unassisted. Antalgic gait, no assistive devices. Ambulates with bilaterally normal heel strike and toe off, reports imbalance on left due to pain. Extrem General: Yes capillary refill normal, Yes no clubbing, cyanosis or edema and Yes no calf tenderness Right lower extremity: knee Details: normal to inspection, tenderness Location: of the medial joint line, normal ROM and crepitus; no swelling Left lower extremity: hip/thigh (Limited ROM, +groin pain with I/E hip rotations, 4/5 strength due to pain) Details: tenderness Location: of the hip Location: laterally, anteriorly and over the great trochanter; no swelling and no unusual warmth and knee (Limited ROM due to pain. Global knee tenderness) Details: tenderness Location: of the patella, of the medial joint line and of the lateral joint line, swelling (Mild to moderate effusion) and crepitus; no ecchymosis and no unusual warmth Results Reviewed Results Reviewed: CT ABDOMEN AND PELVIS WITHOUT CONTRAST 05/07/23 OSSEOUS STRUCTURES: Degenerative changes of the spine. AVN of the left femoral head. CT ABDOMEN AND PELVIS WITH CONTRAST 01/19/2019 OSSEOUS STRUCTURES: No acute or suspicious osseous abnormality. Degenerative changes at the lower lumbar spine. 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 This is new from 2015. 04/01/23 XR/XR knee RT 3V Impression: Extensive bilateral tricompartmental degenerative changes more so in the medial compartments. Bilateral joint effusions are present. No acute fracture or dislocation. 04/01/23 XR/XR knee LT 3V Impression: Extensive bilateral tricompartmental degenerative changes more so in the medial compartments. Bilateral joint effusions are present. No acute fracture or dislocation. 12/09/22 XR/XR knee LT 3V IMPRESSION: 1. Large suprapatellar joint effusion with a moderate-sized anterior superior patellar enthesophyte. 2. Mild degenerative changes medial and patellofemoral compartment. 3. No acute fracture or dislocation seen. Assessment & Plan Assessment & Plan (1) Left knee pain: Code(s): M25.562 - Pain in left knee (2) Internal derangement of left knee: Code(s): M23.92 - Unspecified internal derangement of left knee (3) Avascular necrosis of left femoral head: Code(s): M87.052 - Idiopathic aseptic necrosis of left femur (4) Patellofemoral arthritis of right knee: Code(s): M17.11 - Unilateral primary osteoarthritis, right knee (5) Left hip pain: Code(s): M25.552 - Pain in left hip Plan Patient is status post bilateral diagnostic SNB at adductor canal with good results for right knee pain and no pain relief for left knee pain. We will proceed with left knee MRI to further evaluate her ongoing symptoms without response to nerve block. If no significant findings on knee MRI, will consider left femoral nerve block. Patient reports ongoing 50% pain relief for right knee and will notify our office when pain return for a longer term management with Sprint trial. Recent CT scan abdomen and pelvis showed AVN of left femoral head. Patient was encouraged to follow up with Orthopedic provider for left knee and hip for further evaluation. All questions and concerns have been answered and patient agreed with the plan. Follow up for MRI/xray results and sooner if needed. Orders: Orders XR hip LT min 2V Today M25.562 - Pain in left knee, M87.052 - Idiopathic aseptic necrosis of left femur MR knee LT wo con Today M23.92 - Unspecified internal derangement of left knee, M25.562 - Pain in left knee Coding Level of Care Code Est Pt Level 4 (62969) Diagnoses Left knee pain M25.562 Internal derangement of left knee M23.92 Avascular necrosis of left femoral head M87.052 Patellofemoral arthritis of right knee M17.11 Left hip pain M25.552
[2023-05-16 13:39] VITALS: BP 230/110; PULSE 97; O2SAT 99; BMI 30.7
[2023-05-16 13:40] VITALS: BP 221/109
== END 2023-05-16 14:06 | disposition home or self-care (01) ==
PROVIDERS: PCP Internal Medicine; Visit Provider Nurse Practitioner Family
DX: M25.562 Pain in left knee (principal); M23.92 Unspecified internal derangement of left knee; M87.052 Idiopathic aseptic necrosis of left femur; M17.11 Unilateral primary osteoarthritis, right knee; M25.552 Pain in left hip
CPT/HCPCS: 99214

== ENCOUNTER → 2023-05-16 13:31 | Outpatient (BNVA) | payer MEDICAID, SELFPAY | PROVIDERS: PCP Internal Medicine; Visit Provider Nurse Practitioner Family | DX: M25.562 Pain in left knee (principal); M23.92 Unspecified internal derangement of left knee; M87.052 Idiopathic aseptic necrosis of left femur; M17.11 Unilateral primary osteoarthritis, right knee; M25.552 Pain in left hip | CPT/HCPCS: 99212 ==

== ENCOUNTER 2023-05-20 11:39 | Outpatient (REF) | payer MEDICAID, SELFPAY ==
--- NOTE | ~2023-05-20 | XR_ITS ---
EXAMINATION: XR HIP, LEFT CLINICAL INFORMATION: Left hip pain. Pain in left knee. COMPARISON: None available. TECHNIQUE: Two views of the left hip. FINDINGS: Moderate degenerative changes of left hip with joint space narrowing and hypertrophic change. Degenerative changes in the partially imaged lower lumbar spine. XR/XR hip LT min 2V IMPRESSION: Moderate degenerative changes, left hip. Additional imaging with CT scan or MRI should be considered for better visualization as these modalities are much more sensitive for detection of fracture or other underlying pathology.
== END 2023-05-20 11:40 | disposition home or self-care (01) ==
LOC: HO.XRAY 11:39
PROVIDERS: PCP Internal Medicine; Visit Provider Nurse Practitioner Family
DX: M25.562 Pain in left knee (principal); M87.052 Idiopathic aseptic necrosis of left femur
CPT/HCPCS: 73502

== ENCOUNTER 2023-05-27 14:01 | Outpatient (AMB) | payer MEDICAID, SELFPAY ==
--- NOTE | 2023-05-27 14:03 | MHC.OFFVIS ---
Intake Vital Signs 05/27/23 14:08 05/27/23 14:09 Height 5 ft 6 in Weight 190 lb BMI 30.7 BP 216/103 H 223/123 H Blood Pressure Location Lt brachial Rt brachial Position Sitting Sitting Pulse 91 90 Pulse Source Pulse Oximeter Pulse Oximeter Pulse Oximetry (%) 97 97 Oxygen Delivery Method Room Air Room Air Comment BP recheck Intake Visit Reasons: HIP XRAY FOLLOW UP/RESULTS Intake Note: Pain today 04/29 Hospital Medical Assistant Required: No Accompanied by: Unknown Allergies No Known Allergies [No Known Allergies*] Allergy (Verified 05/16/23 13:41) HPI HPI Comments History of Present Illness Details Patient presents today to review results of recent left hip xray. She continues to endorse signficant left leg pain pain, worse in left knee than left hip. Pain limits her walking capacity, mobility, climbing stairs, daily functioning and sleep. Patient also reports she would like to proceed with right knee Sprint trial and also undergo left therapeutic hip injection. Denies any recent cough, cold, infection, fever or other significant changes in medical history since last office visit. Patient presents with significantly elevated BP again, she is asymptomatic, denies any chest pain, dizziness or shortness of breaths. She was urged again to follow up with her PCP or go directly to ER. Patient reports she takes her BP twice daily and still has to take evening dose. PRIOR: Patient presents today to assess response to recent Diagnostic Right SNB on 05/02/23 and Left SNB on 05/09/23 at adductor canal, ultrasound guided with Dr. Obrien. Patient reports 90% pain relief on the right for 4 days with ongoing 50% pain relief. However, no pain relief on the left. She continues to walk with antalgic gait with moderate limping favoring right side. Patient reports global left knee pain and reports Tylenol and Ibuprofen for left hip pain which partially alleviate her left hip pain but not left knee. She reports mild to moderate pain relief with short script of oxycodone that I provided to her at previous office visit for severe left knee pain. Patient reports right knee has been doing better since diagnostic injections and does not need to proceed with further interventions at this time. She is concerned for ongoing and worsening pain in her left knee which affects her walking capacity, mobility, climbing stairs, ADLs, functioning and sleep. She denies significant left hip pain. Recent CT scan abdomen and pelvis showed AVN of left femoral head. Previous imaging is noted that this was present in 2019. We will proceed with left knee MRI and left hip xray imaging. Patient will follow up with Orthopedic provider for further evaluation. May consider left femoral nerve block if no significant findings per left knee MRI. Patient currently does not work, she is on permanent disability with history of 3 strokes (CVAs and TIA), memory and visual function disrupted as well. Patient lives in an apartment on the 3rd floor with no elevator access, she lives with her adult daughter who is cognitively disabled. Patient has supportive adult son who also comes by during the day to help her out. Current pain level right knee rated at 5/10 and left knee at 10/10. Past Procedures: 05/09/23: Diagnostic Left SNB at adductor canal-0% pain relief 05/02/23: Diagnostic Right SNB at adductor canal-90% pain relief for 4 days, ongoing 50% pain relief PRIOR: Patient is a pleasant 52 years old Hebrew speaking female presents today for bilateral knee pain. Patient was referred to [facility] Orthopedic services. Patient had right knee arthroscopy and chondroplasty on 01/01/[address] Thompson and had left knee cortisone injection on 01/30/23. She reports good relief with injection for only 3 days. Patient reports she has been in significant pain for over one year for both knees, left worse than right. She presents with elevated, asymptomatic BP readings today and attributes this to significant knee pain with walking, climbing or weight bearing. Patient urged to go to ER for evaluation. Patient declined and reports she is compliant with her BP medications which she took this morning. Reports elevated BP readings at home with pain. Discussed importance of BP management especially given history of previous TIA and CVA. Patient has to hold and guard her knees manually as she gets up from sitting position to standing due to unsteadiness r/t knee pain. She has been previously managed her pain with short scripts of oxycodone 5 mg but has to take 2 tabs at once to decrease her pain to 5/10. Pain is constant and is rated 9-10/10 in intensity. Patient is interested to undergo genicular nerve blocks for potential stimulative or ablative treatments for a longer term knee pain relief. Denies any fever, chills, dizziness, chest pain, headache, shortness of breaths, back pain, bladder or bowel dysfunction or saddle anesthesia. Location Bilateral knee pain, left side is worse Duration Chronic pain for >1 year, left knee worse than right Characteristics of symptom or complaint Aching, throbbing, sore, burning, tingling Aggravating or associated factors Movements, walking, climbing stairs, weight bearing Relieving factors Rest, oxycodone, cortisone injection -3 days pain relief, Ibuprofen Treatment PT- finished in January- no improvement, cortisone injections PFSH Medical History TIA (transient ischemic attack) CVA (cerebral vascular accident) Hypertension FH: breast cancer in first degree relative Abnormal Pap smear of cervix Ovarian cyst Depression HTN (hypertension) Surgical History H/O prior ablation treatment Hx of tubal ligation History of removal of ovarian cyst Family History Paternal Aunt Breast cancer Sister Breast cancer, Onset Age: 46 Social History Household Members: Children Housing: Apartment Do you presently have visiting nurse or other home services: No Alcohol intake: never Patient Tobacco Use Status: Never used Tobacco e-Cigarette/Vaping Use: Never Used Advance Directives Date on File: 05/09/21 service: No Current occupational status: disabled Gender identity: Female Review of Systems Const All systems reviewed & are unremarkable except as noted in HPI and below Physical Exam Vital Signs: Last Vital Signs Pulse 90 05/27/23 14:09 BP 223/123 H 05/27/23 14:09 Pulse Ox 97 05/27/23 14:09 Oxygen Delivery Method Room Air 05/27/23 14:09 BMI result Body Mass Index 30.7 General: Appears afebrile. Alert and oriented. Mood and affect appropriate. Follows and participates in conversation appropriately. Respiratory effort is unlabored. No cough. Able to transition from sit to stand unassisted. Antalgic gait, no assistive devices. Ambulates with bilaterally normal heel strike and toe off, reports imbalance on left due to pain. Extrem General: Yes capillary refill normal, Yes no clubbing, cyanosis or edema and Yes no calf tenderness Right lower extremity: knee (Limited ROM due to pain) Details: normal to inspection, tenderness Location: of the medial joint line and crepitus; no swelling and no unusual warmth Left lower extremity: hip/thigh (Limited ROM, +groin pain with I/E hip rotations, 4/5 strength due to pain) Details: tenderness Location: of the hip Location: laterally, anteriorly and over the great trochanter and crepitus; no swelling and no unusual warmth and knee (Limited ROM due to significant pain. Global knee tenderness) Details: tenderness Location: of the patella, of the medial joint line and of the lateral joint line, swelling (Mild to moderate effusion) and crepitus; no ecchymosis and no unusual warmth Results Reviewed Results Reviewed: XR HIP, LEFT 05/20/23 CLINICAL INFORMATION: Left hip pain. Pain in left knee. COMPARISON: None available. TECHNIQUE: Two views of the left hip. FINDINGS: Moderate degenerative changes of left hip with joint space narrowing and hypertrophic change. Degenerative changes in the partially imaged lower lumbar spine. IMPRESSION: Moderate degenerative changes, left hip. Additional imaging with CT scan or MRI should be considered for better visualization as these modalities are much more sensitive for detection of fracture or other underlying pathology. CT ABDOMEN AND PELVIS WITHOUT CONTRAST 05/07/23 OSSEOUS STRUCTURES: Degenerative changes of the spine. AVN of the left femoral head. CT ABDOMEN AND PELVIS WITH CONTRAST 01/19/2019 OSSEOUS STRUCTURES: No acute or suspicious osseous abnormality. Degenerative changes at the lower lumbar spine. 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 This is new from 2016. 04/01/23 XR/XR knee RT 3V Impression: Extensive bilateral tricompartmental degenerative changes more so in the medial compartments. Bilateral joint effusions are present. No acute fracture or dislocation. 04/01/23 XR/XR knee LT 3V Impression: Extensive bilateral tricompartmental degenerative changes more so in the medial compartments. Bilateral joint effusions are present. No acute fracture or dislocation. 12/09/22 XR/XR knee LT 3V IMPRESSION: 1. Large suprapatellar joint effusion with a moderate-sized anterior superior patellar enthesophyte. 2. Mild degenerative changes medial and patellofemoral compartment. 3. No acute fracture or dislocation seen. Assessment & Plan Assessment & Plan (1) Internal derangement of left knee: Code(s): M23.92 - Unspecified internal derangement of left knee (2) S/P right knee arthroscopy: Comment: Right knee arthroscopy and chondroplasty 01/01/2023 [place] Code(s): Z98.890 - Other specified postprocedural states (3) Bilateral knee pain: Code(s): M25.561 - Pain in right knee; M25.562 - Pain in left knee (4) HTN (hypertension): Code(s): I10 - Essential (primary) hypertension Plan 1. Schedule Left hip intra-articular steroid injection with local and fluoroscopy. 2. Subsequently schedule Right Saphenous Nerve Sprint PNS lead placement at the adductor canal with OR local and US guidance. Patient will follow up with Orthopedics for ongoing left knee pain with no pain relief with diagnostic saphenous nerve block. 3. Patient will continue to monitor her BP at home and notify her PCP for any sustained elevated BP readings. Patient again declined medical evaluation at ER today for significantly elevated, asymptomatic high BP readings. She attributes this to pain. All questions and concerns have been answered and patient agreed with the plan. Follow up after injections and sooner as needed. Justification for interventional therapy: ? Patient with average pain > 6/10 ? Patient has exhausted conservative therapy The risks, consequences, alternatives, and benefits of various treatment options were discussed with the patient in great detail, including conservative management, injections and procedures. Patient is aware of hyperglycemic effects of steroids. Coding Level of Care Code Est Pt Level 4 (59181) Diagnoses Internal derangement of left knee M23.92 S/P right knee arthroscopy Z98.890 Bilateral knee pain M25.561; M25.562 HTN (hypertension) I10
[2023-05-27 14:08] VITALS: BP 216/103; PULSE 91; O2SAT 97; BMI 30.7
[2023-05-27 14:09] VITALS: BP 223/123; PULSE 90; O2SAT 97
== END 2023-05-27 14:20 | disposition home or self-care (01) ==
PROVIDERS: PCP Internal Medicine; Visit Provider Nurse Practitioner Family
DX: M23.92 Unspecified internal derangement of left knee (principal); Z98.890 Other specified postprocedural states; M25.561 Pain in right knee; M25.562 Pain in left knee; I10 Essential (primary) hypertension
CPT/HCPCS: 99214

== ENCOUNTER → 2023-05-27 14:01 | Outpatient (BNVA) | payer MEDICAID, SELFPAY | PROVIDERS: PCP Internal Medicine; Visit Provider Nurse Practitioner Family | DX: M23.92 Unspecified internal derangement of left knee (principal); M25.561 Pain in right knee; M25.562 Pain in left knee; I10 Essential (primary) hypertension; Z98.890 Other specified postprocedural states | CPT/HCPCS: 99212 ==

== ENCOUNTER 2023-06-11 05:56 | Outpatient (REF) | payer MEDICAID, SELFPAY ==
--- NOTE | ~2023-06-11 | FL_ITS ---
EXAMINATION: XR FLUOROSCOPY WITH IMAGES CLINICAL INFORMATION: Pain in left hip. COMPARISON: None available. TECHNIQUE: Fluoroscopy Supervised By: Dr. Tito Obrien. Fluoroscopy Time: 0.2 minutes. Cumulative Dose: 12.1 mGy. DAP: 0.933 Gycm2. Images: 1. FINDINGS: Image demonstrates needle placement and contrast injection of the left hip joint FL/FL guidance in treatment room IMPRESSION: Fluoroscopy guidance for pain management procedure
== END 2023-06-11 05:57 | disposition home or self-care (01) ==
LOC: CF 05:56
PROVIDERS: Visit Provider Internal Medicine
DX: M25.552 Pain in left hip (principal)
CPT/HCPCS: 20610; J2795; J3301; Q9967

== ENCOUNTER 2023-06-11 07:23 | Outpatient (AMB) | payer MEDICAID, SELFPAY ==
[2023-06-11 07:32] VITALS: BP 134/84; PULSE 16; RESP 16; O2SAT 98; BMI 30.7
--- NOTE | 2023-06-11 07:32 | MHC.OFFVIS ---
Intake Vital Signs 06/11/23 07:32 06/11/23 08:13 Height 5 ft 6 in 5 ft 6 in Weight 190 lb BMI 30.7 BP 134/84 160/82 H Blood Pressure Location Lt brachial Lt brachial Position Sitting Respiration 16 Pulse 16 L 86 Pulse Source Pulse Oximeter Pulse Oximeter Pulse Oximetry (%) 98 96 Oxygen Delivery Method Room Air Room Air Comment Pre-Op Post-Op Intake Visit Reasons: left intraarticular hip inj Allergies No Known Allergies [No Known Allergies*] Allergy (Verified 05/16/23 13:41) HPI left intraarticular hip inj HPI Details Patient presents for scheduled procedure. Denies any recent cough, cold, infection, fever or other significant changes in medical history since last office visit. [facility] Medical History TIA (transient ischemic attack) CVA (cerebral vascular accident) Hypertension FH: breast cancer in first degree relative Abnormal Pap smear of cervix Ovarian cyst Depression HTN (hypertension) Surgical History H/O prior ablation treatment Hx of tubal ligation History of removal of ovarian cyst Family History Paternal Aunt Breast cancer Sister Breast cancer, Onset Age: 46 Household Members: Children Housing: Apartment Do you presently have visiting nurse or other home services: No Alcohol intake: never Patient Tobacco Use Status: Never used Tobacco e-Cigarette/Vaping Use: Never Used Advance Directives Date on File: 05/09/21 service: No Current occupational status: disabled Gender identity: Female Physical Exam Vital Signs: Last Vital Signs Pulse 16 L 06/11/23 07:32 Resp 16 06/11/23 07:32 BP 134/84 06/11/23 07:32 Pulse Ox 98 06/11/23 07:32 Oxygen Delivery Method Room Air 06/11/23 07:32 BMI result Body Mass Index 30.7 Office Procedures Joint Injection/Drain Joint Injection/Drain Details: Hip Intra-articular Injection, fluoroscopy guided, Left After informed written consent was obtained, the patient was placed in the lateral position. Pre-procedure oxygen saturation, heart rate, and blood pressure were recorded. The skin was prepped with Chloroprep, and draped in a sterile fashion. With the use of fluroscopy the hip joint was identified. With a 25-gauge 1.5 hypodermic needle 0.75% lidocaine was injected subcutaneously over the entry site. A 22-gauge 3.5 spinal needle was then advanced toward the joint capsule from a lateral approach. Once in position, and after negative aspiration, 0.5mL of Omnipaque was injected outlining the joint capsule followed by injection of 40mg Kenalog mixed with 0.5% lidocaine (3mL total). There was no evidence of paresthesias throughout needle placement. The stylet was replaced and then the needle was withdrawn. The patient tolerated the procedure well and there was no evidence of procedural complications. EBL: <1cc Coding 09009 - Large joint Procedure code (CPT) selection complete Assessment & Plan Assessment & Plan (1) Left hip pain: Code(s): M25.552 - Pain in left hip Plan Patient is status post left intra-articular hip joint injection of corticosteroid. Patient tolerated procedure well and was discharged home in stable condition with discharge instructions. All questions were answered. We will follow-up via telephone or in clinic to assess response to therapy. A follow-up appointment was made during today's visit. Orders: Orders FL guidance in treatment room Today M25.552 - Pain in left hip Coding Level of Care Code Procedure Only Diagnoses Left hip pain M25.552 CPT Codes Coding - 00441 Large joint: 01668 - Large joint ([id number])
[2023-06-11 08:13] VITALS: BP 160/82; PULSE 86; O2SAT 96
== END 2023-06-11 08:07 | disposition home or self-care (01) ==
LOC: HO.PMCPRC 07:23
PROVIDERS: PCP Internal Medicine; Visit Provider Internal Medicine
DX: M25.552 Pain in left hip (principal)
CPT/HCPCS: 20610

== ENCOUNTER 2023-06-19 13:06 | Outpatient (AMB) | payer MEDICAID, SELFPAY ==
[2023-06-19 13:44] VITALS: BP 160/115; PULSE 79; O2SAT 95; BMI 34.2
--- NOTE | 2023-06-19 13:44 | HO.NEPHOV ---
HPI HPI Comments History of Present Illness Details Middle aged woman with resistant HTN Here for follow up compliance seems to be an issue Interpretor service was used [facility] Medical History (Updated 06/19/23 @ 14:07 by Kali Franco MD) TIA (transient ischemic attack) CVA (cerebral vascular accident) Hypertension FH: breast cancer in first degree relative Abnormal Pap smear of cervix Ovarian cyst Depression HTN (hypertension) Surgical History H/O prior ablation treatment Hx of tubal ligation History of removal of ovarian cyst Family History Paternal Aunt Breast cancer Sister Breast cancer, Onset Age: 46 Social History Household Members: Children Housing: Apartment Do you presently have visiting nurse or other home services: No Alcohol intake: never Comment: Pt refuses alarms-ambulating independently Patient Tobacco Use Status: Never used Tobacco e-Cigarette/Vaping Use: Never Used Advance Directives Date on File: 05/09/21 service: No Current occupational status: disabled Gender identity: Female Vital Signs 06/19/23 13:44 Height 5 ft 6 in Weight 212 lb BMI 34.2 BP 160/115 H Blood Pressure Location Lt brachial Position Sitting Pulse 79 Pulse Source Pulse Oximeter Pulse Oximetry (%) 95 Oxygen Delivery Method Room Air Physical Exam Vital Signs: Last Vital Signs Pulse 79 06/19/23 13:44 BP 160/115 H 06/19/23 13:44 Pulse Ox 95 06/19/23 13:44 Oxygen Delivery Method Room Air 06/19/23 13:44 BMI result Body Mass Index 34.2 Const General: comfortable; No acute distress Orientation/consciousness: patient oriented x3 Eyes General: appearance normal, both eyes and all related structures Visual Craft: normal visual craft by confrontation Neck Neck: Yes supple and Yes no JVD Resp Effort & Inspection: normal respiratory effort and respiratory effort not decreased Auscultation: rhonchi Cardio Palpation: no palpable S3 and no palpable S4 Heart sounds: no rubs GI Inspection: Yes normal to inspection Palpation (GI): Soft to palpation Percussion: Yes normal to percussion Auscultation: normal bowel sounds General: Yes no CVA tenderness Back/Spine/Pelvis Back: no CVA tenderness Skin General skin exam: no petechiae and no purpura Neuro General: patient oriented x3 and no focal motor deficits Extrem General: No clubbing and No edema Results Reviewed Results Reviewed: Cr normal Assessment & Plan Assessment & Plan (1) Hypertension: Code(s): I10 - Essential (primary) hypertension Plan: BP sub optimal Needs weight loss Low salt diet Will add Lasix 20 mg QD Needs to bring all medications next visit (2) Obesity: Code(s): E66.9 - Obesity, unspecified Plan: At here request, will refer to weight loss clinic Orders: Orders Total Protein Urine Random 3 Months I10 - Essential (primary) hypertension Electrolytes 3 Months I10 - Essential (primary) hypertension Blood Urea Nitrogen 3 Months I10 - Essential (primary) hypertension Calcium 3 Months I10 - Essential (primary) hypertension Creatinine Urine 3 Months I10 - Essential (primary) hypertension Creatinine 3 Months I10 - Essential (primary) hypertension Referrals Medical Weight Management Referral E66.9 - Obesity, unspecified, I10 - Essential (primary) hypertension Medications: New furosemide 20 mg PO DAILY 30 tabs 3RF Discontinued ibuprofen Discontinued Reason: Doctor's Order 800 mg PO Q8H PRN 90 tabs 3RF for pain M25.461 - Effusion, right knee Coding Level of Care Code Tele New Pt Level 3 (48522) Diagnoses Hypertension I10 Obesity E66.9
== END 2023-06-19 14:08 | disposition home or self-care (01) ==
LOC: HO.HKA 13:06
PROVIDERS: PCP Internal Medicine; Visit Provider Internal Medicine Hypertension Specialist
DX: I10 Essential (primary) hypertension (principal); E66.9 Obesity, unspecified; Z68.34 Body mass index [BMI] 34.0-34.9, adult
CPT/HCPCS: 99203

== ENCOUNTER → 2023-06-19 13:06 | Outpatient (BNVA) | payer MEDICAID, SELFPAY | PROVIDERS: PCP Internal Medicine; Visit Provider Internal Medicine Hypertension Specialist | DX: I10 Essential (primary) hypertension (principal); E66.9 Obesity, unspecified | CPT/HCPCS: 99202 ==

== ENCOUNTER 2023-06-19 17:52 | Emergency (ER) | payer MEDICAID, SELFPAY ==
--- NOTE | ~2023-06-19 | CT_ITS ---
EXAMINATION: CT ABDOMEN AND PELVIS WITH CONTRAST CLINICAL INFORMATION: Left lower quadrant pain COMPARISON: CT abdomen 05/07/2023 TECHNIQUE: Multidetector volumetric images were obtained from the superior aspect of the liver through the pubic symphysis following administration 85 mL of Omnipaque 350 intravenous contrast. Sagittal and coronal reformatted images were obtained on the technologist's workstation. Oral contrast: No This CT examination was performed using dose optimization techniques as appropriate, variously including the following: *Automated exposure control *Adjustment of mA and/or kV according to patient size (this includes techniques or standardized protocols for targeted exams where dose is matched to indication/reason for exam; i.e. extremities or head) *Use of iterative reconstruction technique DLP: 688 mGy-cm FINDINGS: LUNG BASES: The lung bases are clear. The heart size is normal. LIVER, GALLBLADDER, AND BILIARY TREE: The liver is enlarged in size measuring 22 cm. There is a normal shape shape, normal contour and diffuse hypoattenuation. There is a focal area of fatty sparing right hepatic lobe image 19/3. No focal hepatic lesion or biliary ductal dilatation is present. The gallbladder is unremarkable with no evidence of radiopaque gallstones, gallbladder wall thickening, or obvious pericholecystic inflammatory changes. PANCREAS: Unremarkable. SPLEEN: Unremarkable. ADRENAL GLANDS: Unremarkable. KIDNEYS AND URETERS: The kidneys are normal in size, shape, and attenuation. No hydronephrosis, hydroureter, or calculi seen. No perinephric stranding. BLADDER: Unremarkable. GASTROINTESTINAL TRACT: There is scattered stool and gas seen throughout the colon without significant distention. The stomach is distended with recently ingested food. The small bowel loops are normal caliber. Appendix is not visualized with certainty. The cecum lies in mid pelvis. ABDOMINAL WALL: No significant hernia is appreciated. LYMPH NODES: Normal. VASCULAR: Unremarkable. PELVIC VISCERA: The uterus is anteverted focal thickening of fundal endometrium approximately measuring 1.5 cm. Suspect small nabothian cyst in the cervix. OSSEOUS STRUCTURES: No aggressive lytic or sclerotic process seen. There are degenerative disc changes with vacuum disc phenomena L4-L5 and L5-S1 disc levels. CT/CT abdomen pelvis w IV con IMPRESSION: No acute intra-abdominal process seen. Hepatic steatosis with focal fatty sparing. Thickening of the fundal endometrium.. Follow-up possible nabothian cysts. If patient has clinical pain in the pelvis correlation with ultrasound can be performed. Fleischner guidelines were followed.
[2023-06-19 18:35] VITALS: BP 214/111; PULSE 87; RESP 16; TEMP 37.1; O2SAT 99; BMI 33.9
--- NOTE | 2023-06-19 18:35 | ED.GENADULT ---
HPI - General Adult General Chief complaint: General Medical Stated complaint: abdominal/side pain Time Seen by Provider: 06/19/23 20:59 Source: patient, family and lang interpreter Mode of arrival: ambulatory History of Present Illness HPI narrative: 52-year-old female who presents with acute onset of left lower quadrant pain approximately 1730 this evening associated with nausea and vomiting but she denies any fever chills denies any recent dysuria. Related Data Home Medications Medication Instructions Recorded Confirmed amlodipine 10 mg tablet 10 mg PO DAILY 05/27/22 01/01/23 diclofenac sodium 75 mg 75 mg PO BID 05/27/22 01/01/23 tablet,delayed release doxazosin 4 mg tablet 4 mg PO BEDTIME 05/27/22 01/01/23 atorvastatin 80 mg tablet 80 mg PO BEDTIME 10/29/22 01/01/23 hydroxyzine HCl 50 mg tablet 50 mg PO BEDTIME 10/29/22 01/01/23 sertraline 50 mg tablet 50 mg PO DAILY 10/29/22 01/01/23 aspirin 81 mg tablet,delayed 81 mg PO DAILY 12/10/22 01/01/23 release trazodone 150 mg tablet 150 mg PO BEDTIME 12/10/22 01/01/23 carvedilol 12.5 mg tablet 12.5 mg PO BID 12/30/22 01/01/23 rosuvastatin 40 mg tablet 40 mg PO BEDTIME 05/16/23 lisinopril 20 1 tab PO DAILY 06/19/23 06/19/23 mg-hydrochlorothiazide 25 mg tablet Previous Rx's Medication Instructions Recorded gabapentin 300 mg capsule 300 mg PO BID pain 30 days #60 caps 04/11/23 docusate sodium 100 mg capsule 100 mg PO DAILY #14 caps 05/07/23 (Colace) psyllium husk 3.4 gram/5.4 gram 1 tsp PO DAILY #660 grams 05/07/23 oral powder (Metamucil) furosemide 20 mg tablet 20 mg PO DAILY #30 tabs 06/19/23 Allergies Allergy/AdvReac Type Severity Reaction Status Date / Time No Known Allergies Allergy Verified 06/19/23 13:46 [No Known Allergies*] Review of Systems Review of Systems: Pertinent positives and negatives as stated in HPI [facility] Past Medical History Source: nursing notes reviewed Medical History TIA (transient ischemic attack) CVA (cerebral vascular accident) Hypertension FH: breast cancer in first degree relative Abnormal Pap smear of cervix Ovarian cyst Depression HTN (hypertension) Surgical History H/O prior ablation treatment Hx of tubal ligation History of removal of ovarian cyst Family History Family History Paternal Aunt Breast cancer Sister Breast cancer, Onset Age: 46 Social History Social History Household Members: Children Housing: Apartment Do you presently have visiting nurse or other home services: No Alcohol intake: never Comment: Pt refuses alarms-ambulating independently Patient Tobacco Use Status: Never used Tobacco Smoked in Last 30 Days: No e-Cigarette/Vaping Use: Never Used Use of substances other than those prescribed or required for medical reasons: No Advance Directives: Yes Advance Directives on File: Yes Advance Directives Date on File: 05/09/21 Patient : No service: No Current occupational status: disabled Gender identity: Female Physical Exam ED Vital Signs: Vital Signs - 24 hr 06/19/23 18:35 06/19/23 20:54 Temperature 98.7 F 98.5 F Pulse Rate 87 86 Respiratory Rate 16 16 Blood Pressure 214/111 H 173/73 H Pulse Oximetry 99 99 Oxygen Delivery Method Room Air Room Air BMI result Body Mass Index 33.9 VITAL SIGNS: Reviewed. GENERAL: Well developed, well nourished, in no acute distress. HEAD: Normocephalic/atraumatic EYES: PERRLA, EOMI EARS: Ext canals without abnormality NOSE: Nares patent bilateral OROPHARYNX: no oral lesions noted, posterior pharynx clear NECK: Supple, no adenopathy LUNGS: Normal breath sounds. No adventitious sounds or accessory muscle use. SpO2<99> CARDIOVASCULAR: Regular rate and rhythm without noted murmurs ABDOMEN: Soft, non-tender, non-distended with bowel sounds. MUSCULOSKELETAL: No tenderness, deformities, or effusions noted on gross inspection. EXTREMITIES: No cyanosis, clubbing or edema. SKIN: Inspection of the skin reveals no rashes NEUROLOGIC: Alert and oriented x 4. Strength and sensation to light touch were grossly intact x 4. Course Course Course Narrative: This is a rapid medical exam: Additional HPI, ROS, PE not included below will be deferred to primary provider. Patient is a 52-year-old female with history of TIA, CVA, HTN, appendectomy presenting to the emergency department with complaint of acute onset severe LLQ abdominal pain one hour prior to arrival. Also complains of nausea and urinary frequency. Denies hematuria or history of kidney stones. Patient appears extremely uncomfortable in triage. Plan: IM ketorolac, zofran, UA, labs, CT abdomen/pelvis Medications Administered Generic Name Dose Route Start Last Admin Trade Name Freq PRN Reason Stop Dose Admin Sodium Chloride 1,000 mls @ 999 mls/hr 06/19/23 21:45 06/19/23 21:39 Ns IV 06/19/23 22:45 999 mls/hr .Q1H1M ANIA Administration Discontinued Medications Generic Name Dose Route Start Last Admin Trade Name Freq PRN Reason Stop Dose Admin Iohexol 100 ml 06/19/23 21:37 06/19/23 21:38 Iohexol 350 Mg/Ml 100 Ml Infus..Btl IV 06/19/23 21:38 85 ml ONCE ONE Administration Ketorolac Tromethamine 30 mg 06/19/23 18:36 06/19/23 18:45 Ketorolac Tromethamine 30 Mg/Ml Vial IM 06/19/23 18:37 30 mg ONCE ONE Administration Ondansetron HCl 4 mg 06/19/23 18:40 06/19/23 18:44 Ondansetron Odt 4 Mg Tab.Rapdis TRANSLINGU 06/19/23 18:41 4 mg ONCE ONE Administration Medical Decision Making Medical Decision Making MDM Narrative: 52-year-old female with history and clinical presentation, DDX: Renal colic, musculoskeletal, less likely diverticulitis/SBO/UTI. I reviewed all investigations and hematologic indices demonstrate the fact that she has recently received corticosteroids on 06/11 with a leukocytosis and left shift. Otherwise, there is no evidence of anemia or thrombocytopenia. Chemistry indices are grossly within normal limits without demonstration of MELLISSA/electrolyte or liver enzyme derangements. Urinalysis negative for UTI or hematuria. CT scan negative for evidence diverticulitis/renal colic and no evidence to suggest an obstruction. Patient offered IV fluids, combination analgesics and will provide her with a GI cocktail as I suspect some of the noted epigastric discomfort on palpation may be secondary to gastritis secondary to side effects from steroids. My interpretation is that patient is experiencing chronic pain as well as side effects from steroids. I will ensure that she is discharged with antacids and instruct her to follow up with the physician that performed the injection and her primary care provider. Differential Diagnosis Differential Diagnoses: The differential diagnosis associated with the presentation includes Please see the discussion above Admission/Observation Consideration of admission/observation: Escalation of care including admission/observation considered Please see the discussion above Lab Data MDM Lab Attestation statement: I reviewed the patient's lab results. Please see the discussion above 06/19/23 20:22 06/19/23 20:22 Labs: Lab Results 06/19/23 Range/Units 20:22 WBC 13.0 H (4.8-10.8) X10*3/uL RBC 5.12 (4.20-5.50) X10*6/uL Hgb 13.6 (12.0-16.0) g/dl Hct 41.9 (37.0-47.0) % MCV 81.8 (80.0-98.0) fL MCH 26.6 L (27.0-33.0) pg MCHC 32.5 (31.0-35.0) g/dl RDW 14.6 (11.0-16.0) % Plt Count 334 D (160-400) X10*3/uL MPV 9.8 (9.4-12.3) fL Immature Gran % (Auto) 0.4 (0.0-0.4) % Neut % (Auto) 77.6 H (45-73) % Lymph % (Auto) 14.8 L (20-40) % [place] % (Auto) 5.8 (2-11) % Eos % (Auto) 0.9 (0-4) % Baso % (Auto) 0.5 (0-2) % Lymph # (Auto) 1.9 (1.2-4.9) X10*3/uL [place] # (Auto) 0.8 (0.1-1.2) X10*3/uL Eos # (Auto) 0.1 (0.0-0.4) X10*3/uL Baso # (Auto) 0.1 (0.0-0.2) X10*3/uL Abs Immat Gran (auto) 0.05 H (0.00-0.03) X10*3/uL Absolute Neuts (auto) 10.1 H (2.0-8.3) x10*3/uL Absolute Nucleated RBC 0.000 (0.0-0.012) X10*3/uL Nucleated RBC % (auto) 0.0 (0.0-0.2) /100WBC Sodium 138 (135-145) mmol/L Potassium 4.3 (3.3-5.1) mmol/L Chloride 100 (96-108) mmol/L Carbon Dioxide 29 (22-29) mmol/L Anion Gap 13 (12-20) BUN 15 (9-16) mg/dL Creatinine 0.84 (0.5-1.4) mg/dL Estim Creat Clear Calc 91.1 Estimated GFR > 60 Random Glucose 108 (60-115) mg/dL Calcium 9.8 (8.4-10.2) mg/dL Total Bilirubin 0.4 (0.0-1.0) mg/dL AST 23 (5-31) U/L ALT 39 H (0-31) U/L Alkaline Phosphatase 91 (39-117) U/L Total Protein 7.8 (6.5-8.0) g/dL Albumin 4.4 (3.5-5.0) g/dL Urine Color Yellow Urine Appearance Clear Urine pH 8.0 (5.0-9.0) Ur Specific [place] 1.010 (1.005-1.025) Urine Protein 30 (1+) H (Neg-Trace) mg/dL Urine Glucose (UA) Negative (Negative) mg/dL Urine Ketones Negative (Negative) mg/dL Urine Blood Negative (Negative) Urine Nitrite Negative (Negative) Ur Leukocyte Esterase Negative (Negative) Urine RBC 0-2 (0-2) /HPF Urine WBC 0-5 (0-5) /HPF Ur Squamous Epith Cells 0-2 (0-2) /HPF Urine Bacteria None Seen (None Seen) Hyaline Casts 0-2 (0-2) /LPF Radiology Impression Discussion of test interpretation with radiology: I have reviewed the radiologist's reading. Radiologist Impression: Please see the discussion above External Record Review External record reviewed: Office record, Outpatient record, Prior outpatient labs and Prior outpatient radiology Chronic Conditions Patient?s care impacted by: Hypertension Discharge Plan Discharge Clinical Impression: Medication side effect, Gastritis, Abdominal discomfort Patient Disposition: Home, Self-Care Instructions: Gastritis (ED), Diet for Stomach Ulcers and Gastritis (ED), Abdominal Pain (ED), Adverse Drug Reaction (ED) Additional Instructions: 1. Reanudar todos los medicamentos caseros seg?n lo recetado. 2. La inyecci?n de esteroides que recibi? recientemente provocar? un aumento de la producci?n de ?cido y un aumento de la presi?n arterial. 3. Le recomiendo que limite la cantidad de ibuprofeno/Naprosyn/Motrin/aspirina que ingiere, ya que esto puede contribuir a olivera malestar estomacal. 4. Kush un seguimiento con olivera m?dico de atenci?n primaria y con el m?dico que realiz? el procedimiento. Regrese a la shari de emergencias si los s?ntomas empeoran. 1. Resume all home medications as prescribed. 2. The steroid injection you recently received will result in increased acid production, increased blood pressure. 3. I recommend that you limit the amount of ibuprofen/Naprosyn/Motrin/aspirin that you ingest as this can contribute to your stomach discomfort. 4. Please follow-up with your primary care doctor as well as the physician who performed the procedure. Return to the ER for any worsening symptoms. Prescriptions: No Action trazodone 150 mg tablet 150 mg PO BEDTIME carvedilol 12.5 mg tablet 12.5 mg PO BID Rx Instructions: must administer with a meal/food - Take 1.5 tablets twice daily docusate sodium [Colace] 100 mg capsule 100 mg PO DAILY Qty: 14 0RF Metamucil 3.4 gram/5.4 gram powder 1 tsp PO DAILY Qty: 660 0RF Rx Instructions: mix into at least 4 oz water or juice before administering atorvastatin 80 mg tablet 80 mg PO BEDTIME hydroxyzine HCl 50 mg tablet 50 mg PO BEDTIME sertraline 50 mg tablet 50 mg PO DAILY diclofenac sodium 75 mg tablet,delayed release (DR/EC) 75 mg PO BID doxazosin 4 mg tablet 4 mg PO BEDTIME amlodipine 10 mg tablet 10 mg PO DAILY aspirin 81 mg tablet,delayed release (DR/EC) 81 mg PO DAILY gabapentin 300 mg capsule 300 mg PO BID 30 Days Qty: 60 1RF rosuvastatin 40 mg tablet 40 mg PO BEDTIME lisinopril-hydrochlorothiazide 20-25 mg tablet 1 tab PO DAILY furosemide 20 mg tablet 20 mg PO DAILY Qty: 30 3RF Referrals: Ani Bright MD [Primary Care Provider] - Tito Obrien MD [Physician] - Print Language: Cymro
[2023-06-19] MEDS: Ondansetron ODT 4 MG TAB.RAPDIS TRANSLINGU (18:44)
[2023-06-19] MEDS: Ketorolac Tromethamine 30 MG/ML VIAL IM (18:45)
--- OUTSIDE RECORDS SUMMARY | 2023-06-19 19:07 | XMS_ITS | Continuity of Care Document ---
Author Name Unknown Organization [facility] Address [address] [place] [id number]- Care Team Providers Care Community Administrator Name Role Phone Ani Bright MD Primary Care Physician Encounter [facility] [place] Date(s): 05/18/21 - 06/17/21 [facility] [address] [place] [id number] Attending Physician: Not on Staff, Attending MD Admitting Physician: Not on Staff, Admitting MD Referring Physician: Not on Staff, Referring MD Social History Social History Type Response Sex Female
--- OUTSIDE RECORDS SUMMARY | 2023-06-19 19:07 | XMS_ITS | Continuity of Care Document ---
Demographics Address [address] [place] [address] [address] [place] [address]- Mobile Preferred Language es Marital Status Unknown Shinto Affiliation Unknown Race Unknown Ethnic Group Unknown Author Name Unknown Organization [facility] Address [address] [place] [address]- Care Team Providers [employer] Name Role Phone Kaila PEREZ, Ani Liang Primary Care Physician Encounter 05/22/21 - 07/03/21 [facility] [address] [place] [address]- Discharge Disposition: GOALS MET Social History Social History Type Response Sex Female
[2023-06-19 20:33] LABS: MANUAL DIFF FLAG NO
[2023-06-19 20:35] LABS: Appearance Urine Clear; Color Urine Yellow; Glucose Urine UA Negative (Negative); Leukocyte Esterase Urine Negative (Negative); Nitrite Urine Negative (Negative); UMIC TRIGGER UACC YES; Urine Blood Negative (Negative); Urine Ketones Negative (Negative); Urine Protein 30 (1+) mg/dL (Neg-Trace)
[2023-06-19 20:36] LABS: Basophils Absolute Auto 0.1 X10*3/uL (0.0-0.2); Basophils Percent Auto 0.5 % (0-2); Eosinophils Absolute Auto 0.1 X10*3/uL (0.0-0.4); Eosinophils Percent Auto 0.9 % (0-4); Hematocrit 41.9 % (37.0-47.0); Hemoglobin 13.6 g/dl (12.0-16.0); Imm Gran Abs Auto 0.05 X10*3/uL (0.00-0.03); Imm Gran Pct Auto 0.4 % (0.0-0.4); Lymphocytes Absolute Auto 1.9 X10*3/uL (1.2-4.9); Lymphocytes Percent Auto 14.8 % (20-40); Mean Corpuscular HGB Conc 32.5 g/dl (31.0-35.0); Mean Corpuscular Hemoglobin 26.6 pg (27.0-33.0); Mean Corpuscular Volume 81.8 fL (80.0-98.0); Mean Platelet Volume 9.8 fL (9.4-12.3); Monocytes Absolute Auto 0.8 X10*3/uL (0.1-1.2); Monocytes Percent Auto 5.8 % (2-11); Neutrophils Absolute Auto 10.1 x10*3/uL (2.0-8.3); Neutrophils Percent Auto 77.6 % (45-73); Platelet Count 334 X10*3/uL (160-400); Red Blood Count 5.12 X10*6/uL (4.20-5.50); Red Cell Distribution Width 14.6 % (11.0-16.0)
[2023-06-19 20:38] LABS: Bacteria Urine None Seen (None Seen); Hyaline Casts Urine 0-2 /LPF (0-2); RBC Urine 0-2 /HPF (0-2); Squamous Epithelial Cell Urine 0-2 /HPF (0-2); WBC Urine 0-5 /HPF (0-5)
[2023-06-19 20:48] LABS: Alanine Aminotransferase 39 U/L (0-31); Albumin Level 4.4 g/dL (3.5-5.0); Alkaline Phosphatase 91 U/L (39-117); Anion Gap 13 (12-20); Aspartate Amino Transferase 23 U/L (5-31); Bilirubin Total 0.4 mg/dL (0.0-1.0); Blood Urea Nitrogen 15 mg/dL (9-16); Calcium 9.8 mg/dL (8.4-10.2); Carbon Dioxide 29 mmol/L (22-29); Chloride 100 mmol/L (96-108); Creatinine Clr Calc Pharmacy 91.1; Estimated Glomerular Filt Rate > 60; Glucose Random 108 mg/dL (60-115); Potassium 4.3 mmol/L (3.3-5.1); Sodium 138 mmol/L (135-145); Total Protein 7.8 g/dL (6.5-8.0)
[2023-06-19 20:54] VITALS: BP 173/73; PULSE 86; RESP 16; TEMP 36.9; O2SAT 99
[2023-06-19] MEDS: iohexoL 350 MG/ML 100 ML INFUS..BTL IV (21:38)
[2023-06-19] MEDS: 0.9 % Sodium Chloride 1,000 ML 999 ML IV (21:39)
--- NOTE | 2023-06-19 22:44 | PC.NURSE ---
pt self ambulated to the bathroom, gait even and steady at this time
[2023-06-19] MEDS: Lidocaine 4 % Patch ADH..PATCH 1 PATCH TRANSDERMA (22:47)
[2023-06-19] MEDS: Magnesium Hydrox/Alum Hydrox 30 ML ORAL.SUSP PO (22:47)
[2023-06-19] MEDS: Lidocaine HCl Viscous 2 % 15 ML SOLUTION 10 ML MUCOUS MEM (22:48)
[2023-06-19 22:58] VITALS: BP 221/93; PULSE 84; RESP 20; O2SAT 96
--- NOTE | 2023-06-19 23:08 | PC.NURSE ---
pt's BP >200/75 X3. aware. pt medicated per MAR
[2023-06-19] MEDS: amLODIPine Besylate 10 MG TABLET PO (23:11)
[2023-06-19 23:30] VITALS: BP 198/84
[2023-06-20 00:04] VITALS: BP 192/86
== END 2023-06-20 00:05 | disposition home or self-care (01) ==
PROVIDERS: Registered Nurse Emergency; Emergency Provider Student in an Organized Health Care Education/Training Program; PCP Internal Medicine
DX: R10.32 Left lower quadrant pain (principal); R11.2 Nausea with vomiting, unspecified; Z79.899 Other long term (current) drug therapy
CPT/HCPCS: 36415; 74177; 80053; 81001; 85025; 96360; 96372; 99284; 99285; J1885; Q9967

== ENCOUNTER 2023-08-06 07:36 | Day surgery (SDC) | payer MEDICAID, SELFPAY ==
[2023-08-06 08:09] VITALS: BP 185/87; PULSE 74; RESP 18; TEMP 36.6; O2SAT 100; BMI 32.7
--- NOTE | 2023-08-06 09:08 | MHC.SHP ---
Pre-Procedural Eval Section A Date of Service: 08/06/23 The patient is an INPATIENT: No Changes since office visit: Yes Patient answered all questions The History & Physical has been completed within 30 days and I have reviewed it.: Yes Section B Chief Complaint: Pain in right knee Relevant Family History (Specify if Yes): No Relevant Social History: None Present Medications: see Short Stay Collaborative assessment Medical History: No relevant PMH History of Previous Operations: No relevant previous surgery Allergies: Allergies Allergy/AdvReac Type Severity Reaction Status Date / Time No Known Allergies Allergy Verified 06/19/23 13:46 [No Known Allergies*] Review of Systems Sugical H&P ROS: Negative: Constitution, Cardiovascular and Respiratory Exam Surgical H&P Exam: Normal: HEENT, Normal: Heart and Normal: Lungs Plan Diagnosis/Plan: Unchanged I have reviewed the history and physical and performed a pertinent physical examination on my patient. No changes have occurred unless specified. Time Spent With Patient Time: Total time managing care of this patient today ____ minutes.
--- NOTE | 2023-08-06 09:42 | P.BOP_ITS ---
Brief Operative Note Date of Service: 08/06/23 Pre-op diagnosis: Chronic right knee pain Post-op diagnosis: same Procedure: Temporary right saphenous nerve stimulator placement Implants: Splint temporary PNS system Surgeon: Tito Obrien MD Anesthesia: local Was an Computer Numerical Control Machinist used for this Procedure?: No Estimated blood loss (mL): 2 Pathology: none sent Condition: stable Disposition: same day
--- NOTE | 2023-08-06 09:43 | P.OP_ITS ---
Operative Note Operative Note Date of Service: 08/06/23 Narrative: Peripheral Nerve Stimulation Temporary Lead Placement, Ultrasound-Guided, Saphenous Nerve, Right ? After the risks, benefits and alternatives were discussed with the patient and informed consentwas obtained, patient was placed in the supine position and padded to foster comfort. Appropriate skin and bony landmarks were identified, and pertinent vascular structures were located. The skin overlying the needle entry site was prepped and draped in sterile fashion. Ultrasound was used to identify the femoral artery, the femoral vein and the saphenous nerve. After identifying and marking the intended target along the course of the saphenous nerve, the skin around the planned entry point and the subcutaneous tissues were injected with local anesthetic. An introducer needle and stimulating probe were assembled, inserted and advanced along the intended course of the saphenous; nerve, taking care to maintain the proper depth of insertion as the introducer was advanced under ultrasound guidance. The introducer needle was delivered to a location in proximity to the nerve taking care not to puncture the femoral artery or the vein. Multiple stimulation parameters were used to deliver stimulation to the saphenous nerve in concert with stimulating at multiple positions around the nerve. Nerve target acquisition was confirmed noting generation of sensory and mild motor effects (paresthesia, muscle tension, etc) in the medial knee, leg and ankle; corresponding to the distribution of the saphenous nerve. Various electrical parameter combinations were tested, and the lead location was adjusted (physic ally relocated under ultrasound guidance) until the patient indicated medial knee paresthesia and tension overlapping the distribution of the patient?s typical region of pain. The stimulating probe was removed from the introducer and a percutaneous lead was guided through the needle and delivered to a location in similar proximity to the nerve. Final location was verified with electrical stimulation and documented. The introducer needle was removed, and the exposed end of the percutaneous lead was attached to an external stimulator unit. Various electrical parameter combinations were again tested until the patient indicated paresthesia and muscle tension overlapping the distribution of the patient?s typical region of pain. After confirming that lead impedance was in the normal range, the external unit was detached, the needle was removed, and the lead was anchored at the skin. The lead was threaded into the connector block and electrical continuity and desired patient response was confirmed. The connector block was attached to the external stimulator unit. The site was covered with a sterile occlusive dressing. A final ultrasound image was taken to document final placement. The patient was observed for stability of vital signs and comfort.
[2023-08-06 09:52] VITALS: BP 195/87; PULSE 69; RESP 16; TEMP 36.6; O2SAT 98
== END 2023-08-06 11:00 | disposition home or self-care (01) ==
PROVIDERS: PCP Internal Medicine; Visit Provider Internal Medicine
PROC: (CPT 64555; principal; 2023-08-06 08:50)
DX: M25.561 Pain in right knee (principal); I10 Essential (primary) hypertension; Z86.73 Personal history of transient ischemic attack (TIA), and cerebral infarction without residual deficits
CPT/HCPCS: 64555; C1778

== ENCOUNTER → 2023-08-06 07:36 | Outpatient (BNV) | payer MEDICAID, SELFPAY | PROVIDERS: PCP Internal Medicine; Visit Provider Internal Medicine | DX: M25.561 Pain in right knee (principal) | CPT/HCPCS: 64555 ==

== ENCOUNTER 2023-08-12 14:42 | Outpatient (AMB) | payer MEDICAID, SELFPAY ==
--- NOTE | 2023-08-12 15:03 | A.OFFVIS_ITS ---
Intake Vital Signs 08/12/23 15:07 Height 5 ft 7 in Weight 208 lb BMI 32.6 BP 201/93 H Blood Pressure Location Lt brachial Position Sitting Pulse 76 Pulse Source Pulse Oximeter Pulse Oximetry (%) 99 Oxygen Delivery Method Room Air Intake Visit Reasons: S/p (R) Saphenous Nerve Sprint 08/06/23/lvm Intake Note: Pain today 8/10 Telecom Network Manager Required: Yes Telecom Network Manager Language: Container Crane Operator Name: Daughter María Accompanied by: Family/Other Allergies No Known Allergies [No Known Allergies*] Allergy (Verified 08/12/23 15:08) HPI HPI Comments History of Present Illness Details Patient presents today one week status post Right saphenous nerve Sprint placement on 08/06/[address] Obrien. Patient reports 70-80% pain relief when device is on at stimulation setting 80- 83 which provides her paresthesia in distal thigh, knee and right leal. Patient reports 8/10 left knee and 1-2/10 right knee pain. She was scheduled for left knee MRI on 07/11/23 but was no show. We discussed device care, dressing changes and therapy on for 12 hours a day. Patient reports improvement in her daily functioning, mobility and sleep with PNS trial. She will continue to adjust her settings as needed and continue therapy for 12 hours during the day. Denies any recent cough, cold, infection, fever, any significant changes in her medical history, medications or recent hospitalizations. The dressing was removed today. Lead insertion sites look clean, dry, intact, no redness, no swelling, no pathological discharge. Area was cleansed with Chloraprep, applied Bacitracin and covered it with gauze and Tegaderm Sprint dressing.? Past Procedures: 08/06/23: Right saphenous nerve Sprint - 70-80% pain relief, stimulation at 80-83 06/11/23: Left intra-articular hip joint injection of corticosteroid-60% pain relief 05/09/23: Diagnostic Left SNB at adducto r canal-0% pain relief 05/02/23: Diagnostic Right SNB at adduct or canal-90% pain relief for 4 days, ongoing 50% pain relief PRIOR: Patient is a pleasant 52 years old Taiwanese speaking female presents today for bilateral knee pain. Patient was referred to [facility] Orthopedic services. Patient had right knee arthroscopy and chondroplasty on 01/01/[address] Thompson and had left knee cortisone injection on 01/30/23. She reports good relief with injection for only 3 days. Patient reports she has been in significant pain for over one year for both knees, left worse than right. She presents with elevated, asymptomatic BP readings today and attributes this to significant knee pain with walking, climbing or weight bearing. Patient urged to go to ER for evaluation. Patient declined and reports she is compliant with her BP medications which she took this morning. Reports elevated BP readings at home with pain. Discussed importance of BP management especially given history of previous TIA and CVA. Patient has to hold and guard her knees manually as she gets up from sitting position to standing due to unsteadiness r/t knee pain. She has been previously managed her pain with short scripts of oxycodone 5 mg but has to take 2 tabs at once to decrease her pain to 5/10. Pain is constant and is rated 9-10/10 in intensity. Patient is interested to undergo genicular nerve blocks for potential stimulative or ablative treatments for a longer term knee pain relief. Denies any fever, chills, dizziness, chest pain, headache, shortness of breaths, back pain, bladder or bowel dysfunction or saddle anesthesia. Location Bilateral knee pain, left side is worse Duration Chronic pain for >1 year, left knee worse than right Characteristics of symptom or complaint Aching, throbbing, sore, burning, tingling Aggravating or associated factors Movements, walking, climbing stairs, weight bearing Relieving factors Rest, oxycodone, cortisone injection -3 days pain relief, Ibuprofen Treatment PT- finished in January- no improvement, cortisone injections PFSH Medical History TIA (transient ischemic attack) CVA (cerebral vascular accident) Hypertension FH: breast cancer in first degree relative Abnormal Pap smear of cervix Ovarian cyst Depression HTN (hypertension) Surgical History H/O prior ablation treatment Hx of tubal ligation History of removal of ovarian cyst Family History Paternal Aunt Breast cancer Sister Breast cancer, Onset Age: 46 Social History Household Members: Children Housing: Apartment Do you presently have visiting nurse or other home services: No Alcohol intake: never Comment: Pt refuses alarms-ambulating independently Patient Tobacco Use Status: Never used Tobacco e-Cigarette/Vaping Use: Never Used Advance Directives Date on File: 05/09/21 service: No Current occupational status: disabled Gender identity: Female Review of Systems Const All systems reviewed & are unremarkable except as noted in HPI and below Physical Exam Vital Signs: Last Vital Signs Pulse 76 08/12/23 15:07 BP 201/93 H 08/12/23 15:07 Pulse Ox 99 08/12/23 15:07 Oxygen Delivery Method Room Air 08/12/23 15:07 BMI result Body Mass Index 32.6 General: Appears afebrile. Alert and oriented. Mood and affect appropriate. Follows and participates in conversation appropriately. Respiratory effort is unlabored. No cough. Able to transition from sit to stand unassisted. Antalgic gait, no assistive devices. Ambulates with bilaterally normal heel strike and toe off, reports imbalance on left due to pain. Lead Insertion Site: Lead insertion sites look clean, dry, intact. No pathological discharge, no swelling and no erythema. Lead site dressing changed today in the clinic. Assessment & Plan Assessment & Plan (1) Internal derangement of left knee: Code(s): M23.92 - Unspecified internal derangement of left knee (2) S/P right knee arthroscopy: Comment: Right knee arthroscopy and chondroplasty 01/01/2023 [place] Code(s): Z98.890 - Other specified postprocedural states (3) Bilateral knee pain: Code(s): M25.561 - Pain in right knee; M25.562 - Pain in left knee Plan Patient is status post right knee Sprint placement on 08/06/23 with ongoing 70- 80% pain relief. Site dressing change done in clinic today. Patient will continue to adjust her stimulation settings as needed. Dressing changes to be done by patient or her family per patient. She reports changing her dressing few times at home since procedure without any difficulty. For ongoing left knee pain and no relief with diagnostic nerve block, patient was scheduled for left knee MRI on 07/11/23 but was no show. We will attempt to reschedule this again after right knee Sprint removal in September. All questions and concerns have been answered and patient agreed with the plan. Follow up for Sprint removal as scheduled and sooner as needed. Coding Level of Care Code Est Pt Level 3 (97305) Diagnoses Internal derangement of left knee M23.92 S/P right knee arthroscopy Z98.890 Bilateral knee pain M25.561; M25.562
[2023-08-12 15:07] VITALS: BP 201/93; PULSE 76; O2SAT 99; BMI 32.6
== END 2023-08-12 15:24 | disposition home or self-care (01) ==
PROVIDERS: PCP Internal Medicine; Visit Provider Nurse Practitioner Family
DX: M23.92 Unspecified internal derangement of left knee (principal); Z98.890 Other specified postprocedural states; M25.561 Pain in right knee; M25.562 Pain in left knee
CPT/HCPCS: 99024

== ENCOUNTER → 2023-08-12 14:42 | Outpatient (BNVA) | payer MEDICAID, SELFPAY | PROVIDERS: PCP Internal Medicine; Visit Provider Nurse Practitioner Family | DX: M23.92 Unspecified internal derangement of left knee (principal); M25.562 Pain in left knee; M25.561 Pain in right knee; Z98.890 Other specified postprocedural states | CPT/HCPCS: 99212 ==

== ENCOUNTER 2023-08-21 13:39 | Outpatient (AMB) | payer MEDICAID, SELFPAY ==
--- NOTE | 2023-08-21 13:41 | MHC.OFFVIS ---
Intake Vital Signs 08/21/23 13:42 Height 5 ft 7 in Weight 211 lb BMI 33.0 BP 142/90 H Blood Pressure Location Lt brachial Position Sitting Pulse 70 Pulse Source Pulse Oximeter Pulse Oximetry (%) 99 Oxygen Delivery Method Room Air Intake Visit Reasons: 2 mo fu w/ Confirmed Allergies No Known Allergies [No Known Allergies*] Allergy (Verified 08/21/23 13:47) HPI HPI Comments History of Present Illness Details 52 yr old woman with resistnant HTN Here for follow up Seems complaint with meds now NO change in weight PFSH Medical History TIA (transient ischemic attack) CVA (cerebral vascular accident) Hypertension FH: breast cancer in first degree relative Abnormal Pap smear of cervix Ovarian cyst Depression HTN (hypertension) Surgical History H/O prior ablation treatment Hx of tubal ligation History of removal of ovarian cyst Family History Paternal Aunt Breast cancer Sister Breast cancer, Onset Age: 46 Social History Household Members: Children Housing: Apartment Do you presently have visiting nurse or other home services: No Alcohol intake: never Comment: Pt refuses alarms-ambulating independently Patient Tobacco Use Status: Never used Tobacco e-Cigarette/Vaping Use: Never Used Advance Directives Date on File: 05/09/21 service: No Current occupational status: disabled Gender identity: Female Review of Systems Const Denies fever(s) and Denies weight loss Card Denies chest pain Resp Denies cough and Denies hemoptysis GI Denies abdominal pain, Denies diarrhea and Denies nausea Musc Denies back pain Neuro Denies focal weakness Physical Exam Vital Signs: Last Vital Signs Pulse 70 08/21/23 13:42 BP 142/90 H 08/21/23 13:42 Pulse Ox 99 08/21/23 13:42 Oxygen Delivery Method Room Air 08/21/23 13:42 BMI result Body Mass Index 33.0 Const General: comfortable Nutritional Appearance: well nourished Orientation/consciousness: patient oriented x3 HEENT Head: No normal to inspection Mouth: moist mucous membranes Neck Neck: Yes supple and Yes no JVD Resp Auscultation: clear to auscultation bilaterally, no rales and rub present Cardio Jugular venous distension: no JVD Palpation: no palpable S3 and no palpable S4 Heart sounds: no rubs GI Palpation (GI): Soft to palpation and nontender Percussion: No Fluid wave present General: Yes no CVA tenderness Back/Spine/Pelvis Back: no CVA tenderness Skin General skin exam: no rashes or lesions noted Neuro General: patient oriented x3 Extrem General: Yes no pedal edema and No clubbing Results Reviewed Results Reviewed: Cr normal Assessment & Plan Assessment & Plan (1) Hypertension: Code(s): I10 - Essential (primary) hypertension Plan: BP is better controlled Keep current meds l Needs weight loss Low salt diet NO changes were made (2) Obesity: Code(s): E66.9 - Obesity, unspecified Plan: Seen by weight loss clinic work up in progress Coding Level of Care Code Est Pt Level 3 (15345) Diagnoses Hypertension I10 Obesity E66.9
[2023-08-21 13:42] VITALS: BP 142/90; PULSE 70; O2SAT 99; BMI 33.0
== END 2023-08-21 14:00 | disposition home or self-care (01) ==
PROVIDERS: PCP Internal Medicine; Referring Provider Internal Medicine; Visit Provider Internal Medicine Hypertension Specialist
DX: I10 Essential (primary) hypertension (principal); E66.9 Obesity, unspecified
CPT/HCPCS: 99213

== ENCOUNTER → 2023-08-21 13:39 | Outpatient (BNVA) | payer MEDICAID, SELFPAY | PROVIDERS: PCP Internal Medicine; Visit Provider Internal Medicine Hypertension Specialist | DX: I10 Essential (primary) hypertension (principal); E66.9 Obesity, unspecified; Z68.33 Body mass index [BMI] 33.0-33.9, adult | CPT/HCPCS: 99212 ==

== ENCOUNTER 2023-09-12 20:05 | Emergency (ER) | payer MEDICAID, SELFPAY | END 2023-09-12 23:09 | disposition left against medical advice (07) | PROVIDERS: Emergency Provider Emergency Medicine; PCP Internal Medicine | DX: M25.562 Pain in left knee (principal); M25.561 Pain in right knee ==

== ENCOUNTER 2023-09-14 12:11 | Emergency (ER) | payer MEDICAID, SELFPAY ==
--- NOTE | 2023-09-14 12:16 | ED_ITS ---
HPI - General Adult General Chief complaint: Extremity Problem Stated complaint: Pain from sensor placed on leg Time Seen by Provider: 09/14/23 12:41 Source: patient Mode of arrival: ambulatory Limitations: no limitations History of Present Illness HPI narrative: Patient is a 52-year-old female who presents emergency department for evaluation of bilateral knee pain. She reports previously having a sensor placed to the right proximal thigh, upon review of her medical record she had right saphenous nerve splint placement on 08/06/2023. She reports that over the past week she has been having increasing pain to the bilateral knees but was significantly worse today, and unrelieved with ibuprofen/naproxen at home. Denies injury or fall. Related Data Home Medications Medication Instructions Recorded Confirmed amlodipine 10 mg tablet 10 mg PO DAILY 05/27/22 01/01/23 diclofenac sodium 75 mg 75 mg PO BID 05/27/22 01/01/23 tablet,delayed release doxazosin 4 mg tablet 4 mg PO BEDTIME 05/27/22 01/01/23 atorvastatin 80 mg tablet 80 mg PO BEDTIME 10/29/22 01/01/23 hydroxyzine HCl 50 mg tablet 50 mg PO BEDTIME 10/29/22 01/01/23 sertraline 50 mg tablet 50 mg PO DAILY 10/29/22 01/01/23 aspirin 81 mg tablet,delayed 81 mg PO DAILY 12/10/22 01/01/23 release trazodone 150 mg tablet 150 mg PO BEDTIME 12/10/22 01/01/23 carvedilol 12.5 mg tablet 12.5 mg PO BID 12/30/22 01/01/23 rosuvastatin 40 mg tablet 40 mg PO BEDTIME 05/16/23 lisinopril 20 1 tab PO DAILY 06/19/23 06/19/23 mg-hydrochlorothiazide 25 mg tablet Previous Rx's Medication Instructions Recorded gabapentin 300 mg capsule 300 mg PO BID pain 30 days #60 caps 04/11/23 docusate sodium 100 mg capsule 100 mg PO DAILY #14 caps 05/07/23 (Colace) psyllium husk 3.4 gram/5.4 gram 1 tsp PO DAILY #660 grams 05/07/23 oral powder (Metamucil) furosemide 20 mg tablet 20 mg PO DAILY #30 tabs 06/19/23 oxycodone 10 mg tablet 10 mg PO Q8H PRN pain #10 tabs 09/14/23 Allergies Allergy/AdvReac Type Severity Reaction Status Date / Time No Known Allergies Allergy Verified 09/14/23 12:16 [No Known Allergies*] Review of Systems Review of Systems: Yes all other systems are reviewed and are negative FORMERLY [facility], [facility] Past Medical History Attestation statement: The following information was validated with the patient. Source: old records reviewed Medical History TIA (transient ischemic attack) CVA (cerebral vascular accident) Hypertension FH: breast cancer in first degree relative Abnormal Pap smear of cervix Ovarian cyst Depression HTN (hypertension) Surgical History H/O prior ablation treatment Hx of tubal ligation History of removal of ovarian cyst Family History Family History Paternal Aunt Breast cancer Sister Breast cancer, Onset Age: 46 Social History Social History Household Members: Children Housing: Apartment Do you presently have visiting nurse or other home services: No Alcohol intake: never Comment: Pt refuses alarms-ambulating independently Patient Tobacco Use Status: Never used Tobacco Smoked in Last 30 Days: No e-Cigarette/Vaping Use: Never Used Use of substances other than those prescribed or required for medical reasons: No Advance Directives: Yes Advance Directives on File: Yes Advance Directives Date on File: 05/09/21 Patient : No service: No Current occupational status: disabled Gender identity: Female Physical Exam ED Vital Signs: Vital Signs - 24 hr 09/14/23 12:17 09/14/23 14:57 09/14/23 15:37 Temperature 97.8 F Pulse Rate 81 65 64 Respiratory Rate 16 14 14 Blood Pressure 233/98 H 194/91 H 189/87 H Pulse Oximetry 98 97 98 Oxygen Delivery Method Room Air Room Air BMI result Body Mass Index 29.8 Appearance: Alert.?Oriented to person, place and time. No acute distress.?Normal affect. Eyes: Pupils equal, round and reactive to light.? ENT: Pharynx normal.?? Neck: Normal inspection.? Neck supple.?? CVS: Heart sounds normal. Normal heart rate and rhythm.? Pulses normal.?? Respiratory: No respiratory distress.? Lung sounds clear to auscultation bilaterally?? Abdomen: Soft and non-tender. Normoactive bowel sounds. Skin: Skin warm and dry.? Normal skin color.? Extremities: No lower extremity edema.? No calf ttp. 2+ DP/PT pulse bilaterally. Bilateral knees normal to inspection, tenderness primarily over the right medial knee and left lateral/ medial knee, bilateral effusion crepitus, no ecchymosis, erythema, warmth, rashes or lesions. Neuro: Moves all extremities spontaneously. Sensation intact bilaterally. No focal neuro deficits. Ambulates with normal steady gait. Course Course Course Narrative: This is an RME: Additional HPI, ROS, PE not included below will be deferred to primary provider. Patient is a 52-year-old female who presents emergency department for evaluation of bilateral knee pain. She reports previously having a sensor placed to the right proximal thigh, upon review of her medical record she had right saphenous nerve splint placement on 08/06/2023. She reports that over the past week she has been having increasing pain to the bilateral knees but was significantly worse today, and unrelieved with ibuprofen/naproxen at home. Denies injury or fall. Reevaluation(s) Reevaluation #1: Pain has improved, currently 3/10 with use of oxycodone. Advised that she will require close follow-up with pain management/PCP for further evaluation, will send short prescription to pharmacy. Remains hypertensive at 210/92, she reports that this is usual for her, she is asymptomatic. Will trial additional dose of carvedilol. Time: 14:21 Reevaluation #2: Blood pressure has improved, stable for discharge, outpatient follow-up. Time: 15:32 Medications Administered Discontinued Medications Generic Name Dose Route Start Last Admin Trade Name Marla PRN Reason Stop Dose Admin Acetaminophen 975 mg 09/14/23 12:42 09/14/23 13:17 Acetaminophen 325 Mg Tablet PO 09/14/23 12:43 975 mg ONCE ONE Administration Carvedilol 12.5 mg 09/14/23 14:08 09/14/23 14:56 Carvedilol 12.5 Mg Tablet PO 09/14/23 14:09 12.5 mg ONCE ONE Administration Protocol Lidocaine 2 patch 09/14/23 12:58 09/14/23 13:18 Lidocaine 4 % Patch Adh..Patch TRANSDERMA 09/14/23 12:59 2 patch ONCE ONE Administration Protocol Oxycodone HCl 10 mg 09/14/23 12:42 09/14/23 13:17 Oxycodone Hcl Immed Release 5 Mg Tablet PO 09/14/23 12:43 10 mg ONCE ONE Administration Medical Decision Making Medical Decision Making MDM Narrative: Patient is a 52-year-old female with history of bilateral extensive tricompartmental degenerative changes of the knees and chronic effusions, followed by Orthopedics and pain management with recent right saphenous nerve Sprint placement on 08/06/2023 for management of chronic pain, she is pending MRI of the left knee had a no show in June of 2023, pain management plan to reschedule once right knee Sprint is removed in September. Reports she was having some improvement but pain became worse again over the past week without any precipitating injury and was notably worse today which prompted her visit to the ED. she attempted to use ibuprofen at home, admits that when this was not helpful she trialed naproxen which also did not alleviate her pain (she has aware not to take the 2 medications in combination as they are of the same drug class). She is also noted to be hypertensive upon arrival, she reports having taken all of her prescribed antihypertensives, which may additionally be elevated secondary to pain response. Plan to attempt pain management and re- evaluate.. Differential Diagnosis Differential Diagnoses: The differential diagnosis associated with the presentation includes (Chronic osteoarthritis, history physical examination not consistent with septic joint, unlikely any acute fracture/dislocation as this is atraumatic and she is ambulatory) Admission/Observation Consideration of admission/observation: Escalation of care including admission/observation considered (See narrative above and course narrative for further detail) External Record Review External record reviewed: Outpatient record and Other ([employer]) Tests considered The following testing was considered but not selected: Considered XR imaging, atraumatic, chronic osteoarthritis, low suspicion for acute fracture/dislocation. Prescription Management I considered prescription management with: Pain Medication Critical Care Time Critical Care Time Critical Care Time: Yes Total Critical Care Time: 35 Attestation: I personally attest to this critical care time spent taking care of the patient exclusive of all other billable procedures was approximately 35 minutes including initial evaluation of patient, ordering tests, x-ray interpretation, EKG interpretation, medical consultation, documentation, re-evaluation. Discharge Plan Discharge Clinical Impression: Osteoarthritis of both knees Patient Disposition: Home, Self-Care Additional Instructions: As discussed, short prescription for oxycodone was sent to your pharmacy, please take this for pain that is unrelieved with acetaminophen/ibuprofen. This medication is a narcotic, it can be addictive. May make you drowsy. You should not drive, drink alcohol, or work while taking this medication. Follow-up with pain management as scheduled on , you may also follow-up with your primary care provider. Your blood pressure was notably elevated while in the emergency department, it did improve with your dose of carvedilol, this should be further followed up with your primary care provider should your blood pressure remain elevated despite your medications. Return back to emergency department any new or worsening symptoms or concerns. Prescriptions: New oxycodone 10 mg tablet 10 mg PO Q8H PRN (Reason: pain) Qty: 10 0RF Rx Instructions: Partial Fill upon patient request. No Action trazodone 150 mg tablet 150 mg PO BEDTIME carvedilol 12.5 mg tablet 12.5 mg PO BID Rx Instructions: must administer with a meal/food - Take 1.5 tablets twice daily docusate sodium [Colace] 100 mg capsule 100 mg PO DAILY Qty: 14 0RF Metamucil 3.4 gram/5.4 gram powder 1 tsp PO DAILY Qty: 660 0RF Rx Instructions: mix into at least 4 oz water or juice before administering atorvastatin 80 mg tablet 80 mg PO BEDTIME hydroxyzine HCl 50 mg tablet 50 mg PO BEDTIME sertraline 50 mg tablet 50 mg PO DAILY diclofenac sodium 75 mg tablet,delayed release (DR/EC) 75 mg PO BID doxazosin 4 mg tablet 4 mg PO BEDTIME amlodipine 10 mg tablet 10 mg PO DAILY aspirin 81 mg tablet,delayed release (DR/EC) 81 mg PO DAILY gabapentin 300 mg capsule 300 mg PO BID 30 Days Qty: 60 1RF rosuvastatin 40 mg tablet 40 mg PO BEDTIME lisinopril-hydrochlorothiazide 20-25 mg tablet 1 tab PO DAILY furosemide 20 mg tablet 20 mg PO DAILY Qty: 30 3RF Referrals: Ani Bright MD [Primary Care Provider] - Interventions: ED Discharge Assessment Last Done: 09/14/23 15:36 Discharge Date/Time: 09/14/23 15:37
[2023-09-14 12:17] VITALS: BP 233/98; PULSE 81; RESP 16; TEMP 36.6; O2SAT 98; BMI 29.8
[2023-09-14] MEDS: Acetaminophen 325 MG TABLET 975 MG PO (13:17)
[2023-09-14] MEDS: oxyCODONE HCl Immed Release 5 MG TABLET 10 MG PO (13:17)
[2023-09-14] MEDS: Lidocaine 4 % Patch ADH..PATCH 2 PATCH TRANSDERMA (13:18)
--- NOTE | 2023-09-14 13:23 | PC.NURSE ---
pt a&ox4, vss, reporting chronic but worsening bilateral knee pain over the past 3 days, advised by pain management to come to ED. pt medicated per SEP, lidocaine patches applied to bilateral knees. pt resting quietly, no new orders at this time.
[2023-09-14] MEDS: carvediloL 12.5 MG TABLET PO (14:56)
[2023-09-14 14:57] VITALS: BP 194/91; PULSE 65; RESP 14; O2SAT 97
[2023-09-14 15:37] VITALS: BP 189/87; PULSE 64; RESP 14; O2SAT 98
== END 2023-09-14 15:37 | disposition home or self-care (01) ==
PROVIDERS: Emergency Provider Emergency Medicine; PCP Internal Medicine
DX: M17.0 Bilateral primary osteoarthritis of knee (principal); M25.561 Pain in right knee; M25.562 Pain in left knee; Z79.899 Other long term (current) drug therapy
CPT/HCPCS: 99283; 99284

== ENCOUNTER 2023-09-18 09:04 | Outpatient (AMB) | payer MEDICAID, SELFPAY ==
--- NOTE | 2023-09-18 09:18 | MHC.OFFVIS ---
Intake Vital Signs 09/18/23 09:31 Height 5 ft 7 in Weight 190 lb BMI 29.8 BP 240/120 H Blood Pressure Location Rt brachial Position Sitting Pulse 80 Pulse Source Pulse Oximeter Pulse Oximetry (%) 98 Oxygen Delivery Method Room Air Comment BP done manually Intake Visit Reasons: (R) Saphenous Nerve Sprint REMOVAL Intake Note: Pain today 04/29, Patients blood pressure was grossly high, states that she took her bp meds this morning. Spiral Spring Winder Required: Yes Spiral Spring Winder Language: Linter Drier Operator Name: Cachorro # [id number] Accompanied by: Family/Other Allergies No Known Allergies [No Known Allergies*] Allergy (Verified 09/18/23 09:33) HPI HPI Comments History of Present Illness Details Patient presents today 6 weeks status post Right saphenous nerve Sprint placement on 08/06/[address] Obrien. Patient reports 70-80 % pain relief for 3 weeks only, after which her pain has returned to baseline despite adjusting her stimulation settings. Denies any recent trauma, injury or falls. She reports initially Sprint PNS provided her 60-70% pain relief at 75-80 stimulation. She reports recent ER visit on 09/14/23 for severe bilateral knee pain and notes improved pain with oxycodone. Patient requests to remove Sprint today due to its ineffectiveness. Patient once again presents with highly elevated BP, which she attributes to moderate-severe pain and is asymptomatic. Declined ER visit for this today. Patient was encouraged to follow up with her Cardiology and PCP providers. She recently was seen by Test Puller earlier this month who are aware of her uncontrolled HTN. Patient will return to Orthopedic provider to further evaluate and treat her chronic bilateral knee pain which has been resistant to conservative and our interventional treatments. Denies any recent cough, cold, infection, fever, any significant changes in her medical history, medications or recent hospitalizations. The dressing was removed today. Lead insertion sites look clean, dry, intact, no redness, no swelling, no pathological discharge. Area was cleansed with Chloraprep. Lead pulled with tip intact and the area was cleansed again with Chloraprep, applied Bacitracin and covered it with gauze and Tegaderm film dressing. Past Procedures: 09/18/23: Right saphenous nerve Sprint PNS- no pain relief 08/06/23: Right saphenous nerve Sprint PNS -70-80% pain relief, stimulation at 80-83 06/11/23: Left intra-articular hip joint injection of corticosteroid-60% pain relief 05/09/23: Diagnostic Left SNB at adductor canal-0% pain relief 05/02/23: Diagnostic Right SNB at adductor canal-90% pain relief for 4 days, ongoing 50% pain relief PRIOR: Patient is a pleasant 52 years old Tajik speaking female presents today for bilateral knee pain. Patient was referred to [facility] Orthopedic services. Patient had right knee arthroscopy and chondroplasty on 01/01/[address] Thompson and had left knee cortisone injection on 01/30/23. She reports good relief with injection for only 3 days. Patient reports she has been in significant pain for over one year for both knees, left worse than right. She presents with elevated, asymptomatic BP readings today and attributes this to significant knee pain with walking, climbing or weight bearing. Patient urged to go to ER for evaluation. Patient declined and reports she is compliant with her BP medications which she took this morning. Reports elevated BP readings at home with pain. Discussed importance of BP management especially given history of previous TIA and CVA. Patient has to hold and guard her knees manually as she gets up from sitting position to standing due to unsteadiness r/t knee pain. She has been previously managed her pain with short scripts of oxycodone 5 mg but has to take 2 tabs at once to decrease her pain to 5/10. Pain is constant and is rated 9-10/10 in intensity. Patient is interested to undergo genicular nerve blocks for potential stimulative or ablative treatments for a longer term knee pain relief. Denies any fever, chills, dizziness, chest pain, headache, shortness of breaths, back pain, bladder or bowel dysfunction or saddle anesthesia. Location Bilateral knee pain, left side is worse Duration Chronic pain for >1 year, left knee worse than right Characteristics of symptom or complaint Aching, throbbing, sore, burning, tingling Aggravating or associated factors Movements, walking, climbing stairs, weight bearing Relieving factors Rest, oxycodone, cortisone injection -3 days pain relief, Ibuprofen Treatment PT- finished in January- no improvement, cortisone injections [facility] Medical History TIA (transient ischemic attack) CVA (cerebral vascular accident) Hypertension FH: breast cancer in first degree relative Abnormal Pap smear of cervix Ovarian cyst Depression HTN (hypertension) Surgical History H/O prior ablation treatment Hx of tubal ligation History of removal of ovarian cyst Family History Paternal Aunt Breast cancer Sister Breast cancer, Onset Age: 46 Social History Household Members: Children Housing: Apartment Do you presently have visiting nurse or other home services: No Alcohol intake: never Comment: Pt refuses alarms-ambulating independently Patient Tobacco Use Status: Never used Tobacco e-Cigarette/Vaping Use: Never Used Advance Directives Date on File: 05/09/21 service: No Current occupational status: disabled Gender identity: Female Review of Systems Const All systems reviewed & are unremarkable except as noted in HPI and below Reports as per HPI, Denies body aches, Denies chills, Reports difficulty sleeping, Reports fatigue, Denies frequent falls, Denies headache(s), Denies malaise, Denies night sweats and Denies weakness ENT Denies headache(s) Card Reports as per HPI, Denies chest pain at rest, Denies chest pain with activity, Denies irregular heart rhythm, Denies claudication, Denies lightheadedness, Denies radiating jaw, neck or arm pain, Denies palpitations and Denies dyspnea on exertion Resp Denies dyspnea on exertion Neuro Denies frequent falls, Denies headache(s) and Denies weakness Endo Reports fatigue and Denies palpitations Physical Exam Vital Signs: Last Vital Signs Pulse 80 09/18/23 09:31 BP 240/120 H 09/18/23 09:31 Pulse Ox 98 09/18/23 09:31 Oxygen Delivery Method Room Air 09/18/23 09:31 BMI result Body Mass Index 29.8 General: Appears afebrile. Alert and oriented. Mood and affect appropriate. Follows and participates in conversation appropriately. Respiratory effort is unlabored. No cough. Able to transition from sit to stand unassisted. Antalgic gait, no assistive devices. Ambulates with bilaterally normal heel strike and toe off, reports imbalance on left due to pain. Lead Insertion Site: Lead insertion site looks clean, dry, intact.? Lead pulled with tip intact. Extrem General: Yes capillary refill normal, Yes no clubbing, cyanosis or edema and Yes no calf tenderness Results Reviewed Results Reviewed: XR HIP, LEFT 05/20/23 CLINICAL INFORMATION: Left hip pain. Pain in left knee. COMPARISON: None available. TECHNIQUE: Two views of the left hip. FINDINGS: Moderate degenerative changes of left hip with joint space narrowing and hypertrophic change. Degenerative changes in the partially imaged lower lumbar spine. IMPRESSION: Moderate degenerative changes, left hip. Additional imaging with CT scan or MRI should be considered for better visualization as these modalities are much more sensitive for detection of fracture or other underlying pathology. CT ABDOMEN AND PELVIS WITHOUT CONTRAST 05/07/23 OSSEOUS STRUCTURES: Degenerative changes of the spine. AVN of the left femoral head. CT ABDOMEN AND PELVIS WITH CONTRAST 01/19/2019 OSSEOUS STRUCTURES: No acute or suspicious osseous abnormality. Degenerative changes at the lower lumbar spine. 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 This is new from 2015. 04/01/23 XR/XR knee RT 3V Impression: Extensive bilateral tricompartmental degenerative changes more so in the medial compartments. Bilateral joint effusions are present. No acute fracture or dislocation. 04/01/23 XR/XR knee LT 3V Impression: Extensive bilateral tricompartmental degenerative changes more so in the medial compartments. Bilateral joint effusions are present. No acute fracture or dislocation. 12/09/22 XR/XR knee LT 3V IMPRESSION: 1. Large suprapatellar joint effusion with a moderate-sized anterior superior patellar enthesophyte. 2. Mild degenerative changes medial and patellofemoral compartment. 3. No acute fracture or dislocation seen. Assessment & Plan Assessment & Plan (1) Internal derangement of left knee: Code(s): M23.92 - Unspecified internal derangement of left knee (2) S/P right knee arthroscopy: Comment: Right knee arthroscopy and chondroplasty 01/01/2023 [place] Code(s): Z98.890 - Other specified postprocedural states (3) Bilateral knee pain: Code(s): M25.561 - Pain in right knee; M25.562 - Pain in left knee (4) Uncontrolled hypertension: Code(s): I10 - Essential (primary) hypertension (5) Patellofemoral arthritis of right knee: Code(s): M17.11 - Unilateral primary osteoarthritis, right knee Plan Right knee Sprint lead removed today. Unfortunately, patient reports mild-moderate pain relief for 3 weeks only. Patient will return to Orthopedic provider to further evaluate and treat her chronic bilateral knee pain which has been resistant to conservative and our interventional treatments. Unfortunately her insurance does not cover genicular ablation. Follow up with PCP and Cardiology for uncontrolled HTN. Return to ED for elevated BP red flags which we reviewed again today. I have remainded patient that our office does not offer continued opioid prescribing. I will submit last one time short script of oxycodone for severe pain only. Script sent for topical diclofenac and refill for gabapentin. All questions and concerns have been answered and patient agreed with the plan. Follow up as needed. Orders: Referrals Cardiology Referral I10 - Essential (primary) hypertension Medications: New diclofenac sodium 1% (Arthritis Pain (diclofenac)) 4 grams topical QID 100 grams 0RF pain M25.561 - Pain in right knee, M25.562 - Pain in left knee Refilled oxycodone Partial Fill upon patient request. 10 mg PO Q8H PRN 15 tabs 0RF pain M17.11 - Unilateral primary osteoarthritis, right knee, M23.92 - Unspecified internal derangement of left knee, M25.561 - Pain in right knee, M25.562 - Pain in left knee, Z98.890 - Other specified postprocedural states gabapentin 300 mg PO BID 30 days 60 caps 1RF pain M23.92 - Unspecified internal derangement of left knee, M25.561 - Pain in right knee, M25.562 - Pain in left knee, Z98.890 - Other specified postprocedural states Coding Level of Care Code Est Pt Level 4 (30767) Diagnoses Internal derangement of left knee M23.92 S/P right knee arthroscopy Z98.890 Bilateral knee pain M25.561; M25.562 Uncontrolled hypertension I10 Patellofemoral arthritis of right knee M17.11
[2023-09-18 09:31] VITALS: BP 240/120; PULSE 80; O2SAT 98; BMI 29.8
== END 2023-09-18 09:52 | disposition home or self-care (01) ==
PROVIDERS: PCP Internal Medicine; Visit Provider Nurse Practitioner Family
DX: M23.92 Unspecified internal derangement of left knee (principal); Z98.890 Other specified postprocedural states; M25.561 Pain in right knee; M25.562 Pain in left knee; I10 Essential (primary) hypertension; M17.11 Unilateral primary osteoarthritis, right knee
CPT/HCPCS: 99214

== ENCOUNTER → 2023-09-18 09:04 | Outpatient (BNVA) | payer MEDICAID, SELFPAY | PROVIDERS: PCP Internal Medicine; Visit Provider Nurse Practitioner Family | DX: M23.92 Unspecified internal derangement of left knee (principal); M25.561 Pain in right knee; M25.562 Pain in left knee; M17.11 Unilateral primary osteoarthritis, right knee; I10 Essential (primary) hypertension; Z98.890 Other specified postprocedural states | CPT/HCPCS: 99212 ==

== ENCOUNTER 2024-01-08 12:48 | Outpatient (AMB) | payer MEDICARE, MEDICAID, SELFPAY ==
[2024-01-08 13:24] VITALS: BP 148/88; BMI 29.8
--- NOTE | 2024-01-08 13:24 | MHC.OFFVIS ---
Vital Signs 01/08/24 13:24 Height 5 ft 7 in Weight 190 lb BMI 29.8 BP 148/88 H Blood Pressure Location Lt brachial Position Sitting Intake Visit Reasons: annual Allergies No Known Allergies [No Known Allergies*] Allergy (Verified 01/08/24 13:27) HPI Comments Details: Presenting for annual exam. No complaints. Last Pap/HPV was negative in 10/08 Last Mammogram was BI-RADS 2 in 04/11, next mammogram scheduled in 02/10 No previous Colonoscopy PFSH Medical History TIA (transient ischemic attack) CVA (cerebral vascular accident) Hypertension FH: breast cancer in first degree relative Abnormal Pap smear of cervix Ovarian cyst Depression HTN (hypertension) Surgical History H/O prior ablation treatment Hx of tubal ligation History of removal of ovarian cyst Family History Paternal Aunt Breast cancer Sister Breast cancer, Onset Age: 46 Social History Household Members: Children Housing: Apartment Do you presently have visiting nurse or other home services: No Alcohol intake: never Comment: Pt refuses alarms-ambulating independently Patient Tobacco Use Status: Never used Tobacco e-Cigarette/Vaping Use: Never Used Advance Directives Date on File: 05/09/21 service: No Current occupational status: disabled Gender identity: Female Female Reproductive History Menstrual control method: none Total pregnancies: 3 Full term: 3 Number of Living Children: 3 Date of last pap smear: 10/13/20 History of abnormal pap smear: Yes ( 09/19/17, abnormal ASCUS) History of STI: No Date of Mammogram: 04/01/22 History of abnormal mammogram: No Review of Systems Const All systems reviewed & are unremarkable except as noted in HPI and below Card Reports as per HPI Resp Reports as per HPI GI Reports as per HPI and Reports no additional complaints Reports as per HPI Physical Exam Vital Signs: Last Vital Signs BP 148/88 H 01/08/24 13:24 BMI result Body Mass Index 29.8 Const General: cooperative, healthy appearing and comfortable Chest Chest palpation & inspection: normal inspection of the chest and normal palpation of entire chest wall Breast/axilla inspection: normal inspection of the breasts and normal inspection of the axillae Breast/axilla palpation: normal palpation of the breasts, normal palpation of the axillae and no axillary lymphadenopathy Resp Effort & Inspection: normal respiratory effort Auscultation: clear to auscultation bilaterally Percussion: percussion normal Cardio Palpation: normal PMI Rate: regular rate Rhythm: regular rhythm Heart sounds: no murmurs and no rubs Peripheral pulses: Peripheral pulses 2+ throughout GI Inspection: Yes normal to inspection Palpation (GI): Soft to palpation, nontender, no guarding, not rigid and No hepatosplenomegaly present Percussion: Yes normal to percussion Auscultation: normal bowel sounds Rectal Exam - Female: deferred General: Yes bladder normal to palpation External Female Exam: No lesion Speculum Exam - Vagina: normal appearance of the vagina, normal palpation, normal vaginal discharge and not erythematous Speculum Exam - Cervix: normal appearance of the cervix and normal palpation Bimanual exam- vagina & uterus: normal bimanual exam, normal palpation, uterine size normal, bladder normal to palpation, consistency normal and normal palpation Bimanual Exam- Adnexa, other: normal adnexae, no masses and no tenderness Assessment & Plan Assessment & Plan (1) Well woman exam: Code(s): Z01.419 - Encounter for gynecological examination (general) (routine) without abnormal findings Category: Medical Plan: Co testing not indicated this year. Counseled the patient about the recommended dietary allowance of 1200 mg of Calcium & 600 IU of vitamin D. Mammogram scheduled in 02/10. The patient was referred to GI for screening colonoscopy . The patient was instructed to perform monthly self-breast exams and schedule annual exam in a year. All questions answered and the patient verbalized understanding. Orders: Referrals Gastroenterology Referral Z12.11 - Encounter for screening for malignant neoplasm of colon Coding Level of Care Code Est Pt Prev Care 40-64y(16068) Diagnoses Well woman exam Z01.419
== END 2024-01-08 14:07 | disposition home or self-care (01) ==
PROVIDERS: PCP Internal Medicine; Visit Provider Obstetrics & Gynecology
DX: Z01.419 Encounter for gynecological examination (general) (routine) without abnormal findings (principal)
CPT/HCPCS: 99396

== ENCOUNTER → 2024-01-08 12:48 | Outpatient (BNVA) | payer MEDICARE, MEDICAID, SELFPAY | PROVIDERS: PCP Internal Medicine; Visit Provider Obstetrics & Gynecology | DX: Z01.419 Encounter for gynecological examination (general) (routine) without abnormal findings (principal) | CPT/HCPCS: 99396 ==

== ENCOUNTER 2024-01-12 11:39 | Outpatient (AMB) | payer MEDICARE, MEDICAID, SELFPAY ==
[2024-01-12 11:43] VITALS: BP 144/90; PULSE 71; O2SAT 96; BMI 29.8
--- NOTE | 2024-01-12 11:43 | HO.NEPHOV_ITS ---
Vital Signs 01/12/24 11:43 Height 5 ft 7 in Weight 190 lb BMI 29.8 BP 144/90 H Blood Pressure Location Lt brachial Position Sitting Pulse 71 Pulse Source Pulse Oximeter Pulse Oximetry (%) 96 Oxygen Delivery Method Room Air Intake Visit Reasons: Rscng missed 01/04 appt/ Conf Sheet [employer] Required: Yes Sheet [employer]eter Name: Ignacio [id number] Accompanied by: Self / Same As Patient Allergies No Known Allergies [No Known Allergies*] Allergy (Verified 01/12/24 11:45) Medication List - Last Reconciled 01/12/24 by Kali Franco MD amlodipine 10 mg PO DAILY aspirin 81 mg PO DAILY atorvastatin 80 mg PO BEDTIME carvedilol 12.5 mg PO BID diclofenac sodium 75 mg PO BID diclofenac sodium 1% 4 grams topical QID docusate sodium (Colace) 100 mg PO DAILY doxazosin 4 mg PO BEDTIME furosemide 20 mg PO DAILY gabapentin 300 mg PO BID 30 days hydroxyzine HCl 50 mg PO BEDTIME lisinopril-hydrochlorothiazide 20-25 mg 1 tab PO DAILY rosuvastatin 40 mg PO BEDTIME sertraline 50 mg PO DAILY trazodone 150 mg PO BEDTIME HPI Comments Details: 53 yr old woman with resistnant HTN Here for follow up Seems complaint with meds now NO change in weight PFSH Medical History TIA (transient ischemic attack) CVA (cerebral vascular accident) Hypertension FH: breast cancer in first degree relative Abnormal Pap smear of cervix Ovarian cyst Depression HTN (hypertension) Surgical History H/O prior ablation treatment Hx of tubal ligation History of removal of ovarian cyst Family History Paternal Aunt Breast cancer Sister Breast cancer, Onset Age: 46 Social History Household Members: Children Housing: Apartment Do you presently have visiting nurse or other home services: No Alcohol intake: never Comment: Pt refuses alarms-ambulating independently Patient Tobacco Use Status: Never used Tobacco e-Cigarette/Vaping Use: Never Used Advance Directives Date on File: 05/09/21 service: No Current occupational status: disabled Gender identity: Female Review of Systems Const All systems reviewed & are unremarkable except as noted in HPI and below Card Reports as per HPI Resp Reports as per HPI GI Reports as per HPI and Reports no additional complaints Reports as per HPI Physical Exam Vital Signs: Last Vital Signs Pulse 71 01/12/24 11:43 BP 144/90 H 01/12/24 11:43 Pulse Ox 96 01/12/24 11:43 Oxygen Delivery Method Room Air 01/12/24 11:43 BMI result Body Mass Index 29.8 Const General: comfortable; No acute distress Orientation/consciousness: patient oriented x3 Eyes General: appearance normal, both eyes and all related structures Visual Craft: normal visual craft by confrontation Neck Neck: Yes supple and Yes no JVD Resp Effort & Inspection: normal respiratory effort and respiratory effort not decreased Auscultation: rhonchi Cardio Palpation: no palpable S3 and no palpable S4 Heart sounds: no rubs GI Inspection: Yes normal to inspection Palpation (GI): Soft to palpation Percussion: Yes normal to percussion Auscultation: normal bowel sounds General: Yes no CVA tenderness Back/Spine/Pelvis Back: no CVA tenderness Skin General skin exam: no petechiae and no purpura Neuro General: patient oriented x3 and no focal motor deficits Extrem General: No clubbing and No edema Results Reviewed Results Reviewed: Labs ordered Nephrology Results: No Data to Display Assessment & Plan Assessment & Plan (1) Hypertension: Code(s): I10 - Essential (primary) hypertension Category: Medical Plan: BP is better controlled Keep current meds l Needs weight loss Low salt diet NO changes were made (2) Obesity: Code(s): E66.9 - Obesity, unspecified Category: Medical Plan: Seen by weight loss clinic work up in progress Orders: Orders Basic Metabolic Panel Today I10 - Essential (primary) hypertension Total Protein Urine Random Today I10 - Essential (primary) hypertension UA and rflx microscopic Today I10 - Essential (primary) hypertension Creatinine Urine Today I10 - Essential (primary) hypertension Coding Level of Care Code Est Pt Level 3 (98438) Diagnoses Hypertension I10 Obesity E66.9
== END 2024-01-12 11:58 | disposition home or self-care (01) ==
PROVIDERS: PCP Internal Medicine; Visit Provider Internal Medicine Hypertension Specialist
DX: I10 Essential (primary) hypertension (principal); E66.9 Obesity, unspecified
CPT/HCPCS: 99213

== ENCOUNTER → 2024-01-12 11:39 | Outpatient (BNVA) | payer MEDICARE, MEDICAID, SELFPAY | PROVIDERS: PCP Internal Medicine; Visit Provider Internal Medicine Hypertension Specialist | DX: I10 Essential (primary) hypertension (principal); E66.9 Obesity, unspecified; Z68.29 Body mass index [BMI] 29.0-29.9, adult | CPT/HCPCS: 99212 ==

== ENCOUNTER 2024-01-16 10:52 | Emergency (ER) | payer MEDICARE, MEDICAID, SELFPAY ==
--- NOTE | ~2024-01-16 | XR_ITS ---
EXAMINATION: XR KNEE, LEFT CLINICAL INFORMATION: Pain COMPARISON: Previous x-ray March 2023 TECHNIQUE: Four views of the left knee. FINDINGS: Bone alignment is normal. No fracture or dislocation. Mild arthritis at the femoral tibial and patellofemoral joints with small osteophytes. Osteophyte at the quadriceps tendon insertion to the patella. Small joint effusion. XR/XR knee LT 4V IMPRESSION: Mild degenerative changes and small joint effusion.
--- NOTE | 2024-01-16 11:03 | ED_ITS ---
HPI - Extremity Injury (Lower) General Chief Complaint: Extremity Injury, Lower Stated Complaint: l foot pain Time Seen by Provider: 01/16/24 11:02 Source: patient Mode of arrival: ambulatory Limitations: language barrier ( Ethiopian-speaking sample prep technician utilized) History of Present Illness HPI Narrative: Patient is a 53-year-old female who presents emergency department for evaluation. She has been experiencing acute on chronic left knee pain for the past 2 weeks, admits to a history of chronic bilateral knee pain, reporting that she has had surgery on the right knee approximately year ago. She has trialed naproxen and ibuprofen with out much improvement to the left knee pain. She has been using topical diclofenac cream as well without any improvement. She denies any precipitating injury. Denies redness swelling numbness tingling of the lower extremities, calf pain, pain. Denies chest pain or shortness of breath. Related Data Home Medications ?Medication ?Instructions ?Recorded ?Confirmed amlodipine 10 mg tablet 10 mg PO DAILY 05/27/22 01/12/24 diclofenac sodium 75 mg 75 mg PO BID 05/27/22 01/12/24 tablet,delayed release doxazosin 4 mg tablet 4 mg PO BEDTIME 05/27/22 01/12/24 atorvastatin 80 mg tablet 80 mg PO BEDTIME 10/29/22 01/12/24 hydroxyzine HCl 50 mg tablet 50 mg PO BEDTIME 10/29/22 01/12/24 sertraline 50 mg tablet 50 mg PO DAILY 10/29/22 01/12/24 aspirin 81 mg tablet,delayed 81 mg PO DAILY 12/10/22 01/12/24 release trazodone 150 mg tablet 150 mg PO BEDTIME 12/10/22 01/12/24 carvedilol 12.5 mg tablet 12.5 mg PO BID 12/30/22 01/12/24 rosuvastatin 40 mg tablet 40 mg PO BEDTIME 05/16/23 01/12/24 lisinopril 20 1 tab PO DAILY 06/19/23 01/12/24 mg-hydrochlorothiazide 25 mg tablet Previous Rx's ?Medication ?Instructions ?Recorded docusate sodium 100 mg capsule 100 mg PO DAILY #14 caps 05/07/23 (Colace) furosemide 20 mg tablet 20 mg PO DAILY #30 tabs 06/19/23 gabapentin 300 mg capsule 300 mg PO BID pain 30 days #60 caps 09/18/23 diclofenac sodium 1 % topical gel 4 g topical QID for pain #100 grams 10/27/23 oxycodone 5 mg tablet 5 mg PO Q6H PRN pain #10 tabs 01/16/24 Allergies Allergy/AdvReac Type Severity Reaction Status Date / Time No Known Allergies Allergy Verified 01/16/24 11:11 [No Known Allergies*] Review of Systems Review of Systems: Yes all other systems are reviewed and are negative PMFSH Past Medical History Attestation statement: The following information was validated with the patient. Source: old records reviewed Medical History TIA (transient ischemic attack) CVA (cerebral vascular accident) Hypertension FH: breast cancer in first degree relative Abnormal Pap smear of cervix Ovarian cyst Depression HTN (hypertension) Surgical History H/O prior ablation treatment Hx of tubal ligation History of removal of ovarian cyst Family History Family History Paternal Aunt Breast cancer Sister Breast cancer, Onset Age: 46 Social History Social History Household Members: Children Housing: Apartment Do you presently have visiting nurse or other home services: No Alcohol intake: never Comment: Pt refuses alarms-ambulating independently Patient Tobacco Use Status: Never used Tobacco e-Cigarette/Vaping Use: Never Used Advance Directives: Yes Advance Directives on File: Yes Advance Directives Date on File: 05/09/21 Do you have a plan to hurt others: No Plan service: No Current occupational status: disabled Gender identity: Female Physical Exam Vital Signs: Vital Signs: Last Vital Signs Temp 97.1 F 01/16/24 11:09 Pulse 75 01/16/24 11:09 Resp 18 01/16/24 11:09 BP 207/90 H 01/16/24 11:09 Pulse Ox 96 01/16/24 11:09 O2 Del Method Room Air 01/16/24 11:09 BMI result Body Mass Index 35.2 Appearance: Alert.?Oriented to person, place and time. No acute distress.?Normal affect. Neck: Normal inspection.? Neck supple.?? CVS: Heart sounds normal. Normal heart rate and rhythm.? Pulses normal.?? Respiratory: No respiratory distress.? Lung sounds clear to auscultation bilaterally?? Abdomen: Soft and non-tender. Normoactive bowel sounds. Skin: Skin warm and dry.? Normal skin color.? Extremities: No lower extremity edema.? No calf ttp. 2+ DP/PT pulse bilaterally. Bilateral knees normal to inspection, tenderness primarily over the left medial knee and left lateral/ medial knee, bilateral knees without crepitus, no ecchymosis, erythema, warmth, rashes or lesions. Neuro: Moves all extremities spontaneously. Sensation intact bilaterally. No focal neuro deficits. Ambulates with normal steady gait. Course Reevaluation(s) Reevaluation #1: XR is without evidence of acute pathology, pain consistent with acute on chronic osteoarthritis. I discussed with her a short prescription for oxycodone for breakthrough pain. We had an at length discussion about neck steps, she was advised to contact your primary care provider and discuss pain management options for breakthrough pain. She does advise me that her primary care provider does not prescribed chronic opiates, she was also advised this from the pain management Clinic, I did advise her that she should speak with them specifically about breakthrough pain, as she states she does not take the oxycodone daily when she has been provided with a prescription. Furthermore, she does state that she had a follow-up appointment with Cardiology 2 days ago, her blood pressure at that time was 140/ 80, and she was advised to continue her current antihypertensive regimen. Her degree of hypertension today may be exacerbated by her acute on chronic pain. I advised her to follow-up closely with her primary care doctor, and if she continues to have elevated blood pressure readings as we have noted in our record, they may need to consider referral back to Cardiology sooner than 6 months Medical Decision Making Medical Decision Making MDM Narrative: patient is a 53-year-old female who presents emergency department for evaluation of left knee pain as per HPI, she has acute on chronic bilateral knee pain, history of right knee arthroscopy and chondroplasty December of 2022, she has underwent cortisone injections to the left knee in the past. She was referred to pain management from orthopedics and had right saphenous nerve sprint placement July of 2023 which was subsequently removed as she Only had release for approximately 3 thencontinued to have severe pain. management discussed with her genicular ablation her insurance does not cover it. She has had relief from opiates, however her most recent came management visit August of 2023 at [facility] [place] she was advised that with a would not offer continuous opioid prescribing and she was given a prescription for diclofenac gabapentin. review of her records she has poorly controlled hypertension, multiple visits with pain Medicine Clinic as well as emergency department with elevated blood pressure readings of similar extent to today, asymptomatic, she has been told in the past to assure follow-up with Cardiology and primary care provider, she is currently prescribed amlodipine 10 mg daily and carvedilol 25 mg twice daily which she states compliant with. Differential Diagnosis Differential Diagnoses: The differential diagnosis associated with the presentation includes ( see narrative above) Admission/Observation Consideration of admission/observation: Escalation of care including admission/o bservation considered Independent Interpretation I performed an independent interpretation of an: Plain X-Ray ( no acute fracture) Radiology Impression Discussion of test interpretation with radiology: I have reviewed the radiologist's reading. Radiologist Impression: XR/XR knee LT 4V IMPRESSION: Mild degenerative changes and small joint effusion. External Record Review External record reviewed: Outpatient record ( see narrative above) Prescription Management I considered prescription management with: Pain Medication Discharge Plan Discharge Clinical Impression: Knee osteoarthritis, Hypertension Patient Disposition: Home, Self-Care Additional Instructions: as discussed, your blood pressure readings have been quite elevated on review of our records and you are on a maximum dosage of amlodipine and carvedilol. By your report, your blood pressure was under better control when you were recently seen by warehouse attendant. Please follow-up closely with your primary care doctor within 1 week and if you continue to have elevated blood pressure readings once your pain is under better control they may consider adding a medication or having you follow-up with Cardiology sooner than 6 months. You can take ibuprofen 200 mg, 3 tablets (600mg) every 6-8 hours as needed for pain, in addition to Tylenol 500 mg, 2 tablets (1,000mg) every 4-6 hours as needed for pain, but not to exceed 3 doses daily (3,000mg).? For pain that is unrelieved by ibuprofen/ acetaminophen, I have sent a prescription for oxycodone to your pharmacy. This medication should only be taken for severe pain. It is a narcotic medication. It can be addictive. It m ay make you drowsy. You should not drive, drink alcohol, or work while taking this medication. As discussed today, it is imperative that you follow-up with your primary care doctor and have a discussion as well with pain management clinic about what your options are for breakthrough pain as you stated that you are not using the oxycodone routinely when you are provided with a short prescription. Prescriptions: New oxycodone 5 mg tablet 5 mg PO Q6H PRN (Reason: pain) Qty: 10 0RF Rx Instructions: Partial Fill upon patient request. No Action diclofenac sodium 1 % gel 4 g topical QID Qty: 100 3RF trazodone 150 mg tablet 150 mg PO BEDTIME carvedilol 12.5 mg tablet 12.5 mg PO BID Rx Instructions: must administer with a meal/food - Take 1.5 tablets twice daily docusate sodium [Colace] 100 mg capsule 100 mg PO DAILY Qty: 14 0RF atorvastatin 80 mg tablet 80 mg PO BEDTIME hydroxyzine HCl 50 mg tablet 50 mg PO BEDTIME sertraline 50 mg tablet 50 mg PO DAILY diclofenac sodium 75 mg tablet,delayed release (DR/EC) 75 mg PO BID doxazosin 4 mg tablet 4 mg PO BEDTIME amlodipine 10 mg tablet 10 mg PO DAILY gabapentin 300 mg capsule 300 mg PO BID 30 Days Qty: 60 1RF aspirin 81 mg tablet,delayed release (DR/EC) 81 mg PO DAILY rosuvastatin 40 mg tablet 40 mg PO BEDTIME lisinopril-hydrochlorothiazide 20-25 mg tablet 1 tab PO DAILY furosemide 20 mg tablet 20 mg PO DAILY Qty: 30 3RF Referrals: Ani Bright MD [Primary Care Provider] - Print Language: Ethiopian
[2024-01-16 11:09] VITALS: BP 207/90; PULSE 75; RESP 18; TEMP 36.2; O2SAT 96; BMI 35.2
--- NOTE | 2024-01-16 11:19 | PC.NURSE ---
WENDY Reynolds aware of elevated blood pressure, no new orders at this time.
[2024-01-16 12:56] VITALS: BP 190/98; PULSE 75; RESP 18; TEMP 36.2; O2SAT 96
== END 2024-01-16 13:01 | disposition home or self-care (01) ==
PROVIDERS: Emergency Provider Emergency Medicine; PCP Internal Medicine
DX: M17.12 Unilateral primary osteoarthritis, left knee (principal); M79.672 Pain in left foot; I10 Essential (primary) hypertension
CPT/HCPCS: 73564; 99282; 99283

== ENCOUNTER 2024-01-29 10:01 | Outpatient (REF) | payer MEDICARE, MEDICAID, SELFPAY ==
[2024-01-29 12:57] LABS: TSH reflex Free T4 0.96 uIU/mL (0.32-4.0)
[2024-01-29 13:03] LABS: Cortisol Random 7.1 ug/dL
[2024-02-02 15:23] LABS: Metanephrine, Free 30 pg/mL (<=57); Normetanephrines, Free 93 pg/mL (<=148); Total Metanephrine, Free 123 pg/mL (<=205)
[2024-02-03 13:34] LABS: Renin 0.38 ng/mL/h (0.25-5.82)
[2024-02-03 14:57] LABS: Aldosterone/Renin Ratio 38.9 Ratio (0.9-28.9); Plasma Renin Activity 0.36 ng/mL/h (0.25-5.82)
== END 2024-01-29 10:02 | disposition home or self-care (01) ==
LOC: HO.LAB 10:01
PROVIDERS: PCP Internal Medicine; Visit Provider Internal Medicine Cardiovascular Disease
DX: I10 Essential (primary) hypertension (principal)
CPT/HCPCS: 36415; 82088; 82533; 83835; 84244; 84443; 93005; 99212

== ENCOUNTER 2024-01-29 10:01 | Outpatient (AMB) | payer MEDICARE, MEDICAID, SELFPAY ==
--- NOTE | 2024-01-29 10:28 | A.OFFVIS_ITS ---
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: Yes Allergies No Known Allergies [No Known Allergies*] Allergy (Verified 01/16/24 11:11) Medication List - Last Reconciled 01/29/24 by Marlo Lantigua MD amlodipine 10 mg PO DAILY aspirin 81 mg PO DAILY atorvastatin 80 mg PO BEDTIME carvedilol 12.5 mg PO BID diclofenac sodium 75 mg PO BID diclofenac sodium 1% 4 grams topical QID doxazosin 4 mg PO BEDTIME furosemide 20 mg PO DAILY gabapentin 300 mg PO BID 30 days hydroxyzine HCl 50 mg PO BEDTIME rosuvastatin 40 mg PO BEDTIME sertraline 50 mg PO DAILY trazodone 150 mg PO BEDTIME HPI Comments Details: Michelle comes for follow-up after a long gap. Today blood pressure is significantly elevated. History was obtained with help of bottom turning lathe turner. She says she did not take her medication as she rushed to the hospital. She said otherwise she is very irregular with a blood pressure medicines at home through the bottom turning lathe turner and despite that her blood pressure is significantly elevated at home. She has not had a blood pressure machine at home calibrated at any of the office visits. She says a blood pressure usually remains elevated when she does not sleep well at night. She says she uses trazodone at nighttime. She has never been worked up for sleep apnea. No other workup for secondary hypertension can be seen. She has not had any new neurologic symptoms. Denies any active cardiac symptoms. [facility] Medical History TIA (transient ischemic attack) CVA (cerebral vascular accident) Hypertension FH: breast cancer in first degree relative Abnormal Pap smear of cervix Ovarian cyst Depression HTN (hypertension) Surgical History H/O prior ablation treatment Hx of tubal ligation History of removal of ovarian cyst Family History Paternal Aunt Breast cancer Sister Breast cancer, Onset Age: 46 Social History Household Members: Children Housing: Apartment Do you presently have visiting nurse or other home services: No Alcohol intake: never Comment: Pt refuses alarms-ambulating independently Patient Tobacco Use Status: Never used Tobacco e-Cigarette/Vaping Use: Never Used Advance Directives Date on File: 05/09/21 service: No Current occupational status: disabled Gender identity: Female Review of Systems Const Denies chills, Denies fatigue, Denies fever(s), Denies frequent falls, Denies weakness, Denies weight gain and Denies weight loss ENT Denies dizziness Card Denies chest pain, Denies leg edema, Denies lightheadedness, Denies palpitations, Denies dyspnea, Denies dyspnea on exertion, Denies orthopnea and Denies other (loss of consciousness) Resp Denies cough, Denies dyspnea and Denies dyspnea on exertion GI Denies hematochezia and Denies change in stool character Musc Denies abnormal gait, Denies muscle weakness, Denies numbness, Denies radiating pain into limb and Denies tingling Neuro Denies abnormal gait, Denies dizziness, Denies frequent falls, Denies numbness, Denies tingling and Denies weakness Endo Denies fatigue and Denies palpitations Physical Exam Vital Signs: Last Vital Signs Pulse 74 01/29/24 10:29 BP 168/100 H 01/29/24 10:29 BMI result Body Mass Index 33.8 Const General: cooperative, healthy appearing, comfortable and no acute distress Orientation/consciousness: patient oriented x3 Neck Neck: Yes normal visual inspection and Yes no JVD Resp Effort & Inspection: normal respiratory effort Auscultation: clear to auscultation bilaterally, no crackles, no rales, no rhonchi and no wheezes Cardio Jugular venous distension: no JVD Rate: regular rate Rhythm: regular rhythm Heart sounds: S1 normal heart sound present, S2 normal heart sound present, no gallops, no murmurs and no rubs GI Inspection: Yes normal to inspection Neuro General: patient oriented x3 Extrem General: Yes normal to inspection and No no pedal edema Psych Appearance: grossly normal Mental Status: mental status grossly normal Speech and movement: Normal speech and movement present Office Procedures EKG Details: EKG shows normal sinus rhythm nonspecific changes with prolonged QT at 468 milliseconds [id number], Complete Assessment & Plan Assessment & Plan (1) Uncontrolled hypertension: Code(s): I10 - Essential (primary) hypertension Category: Medical Plan: Uncontrolled hypertension in this middle-aged woman, unsure if this is related to noncompliance with medications. I would strongly recommended her to be very compliant with the medications, she says most days she is. Also suggest workup for secondary hypertension including renal duplex, home sleep study as well as hormonal workup. These tests will be scheduled in near future. Meanwhile I have advised her to monitor blood pressure at home regularly multiple times a day and actually maintain a written log including logs of taking medication any stressors that might contribute to elevated blood pressure. I have advised low- salt diet. Continue current medications, I am not making any changes as I am not sure her blood pressure uncontrolled is related to her not taking her medication on a regular basis. Follow-up in 2 weeks time for nurse visit with blood pressure check including calibration with her own blood pressure medication. Risk of uncontrolled blood pressure with end-organ damage and/or stroke was discussed with her. She showed understanding agree. Follow up in 2 weeks for nurse visit Orders: Orders TSH reflex Free T4 Today I10 - Essential (primary) hypertension Metanephrines, Plasma Today I10 - Essential (primary) hypertension Aldost/Renin Today I10 - Essential (primary) hypertension Cortisol Random Today I10 - Essential (primary) hypertension US renal doppler Today I10 - Essential (primary) hypertension Aldosterone Today I10 - Essential (primary) hypertension Renin Today I10 - Essential (primary) hypertension RT home sleep study Today I10 - Essential (primary) hypertension Coding Level of Care Code Est Pt Level 4 (59539) Diagnoses Uncontrolled hypertension I10 CPT Codes EKG - CPT: 73066-[id number], Complete ([id number])
[2024-01-29 10:29] VITALS: BP 168/100; PULSE 74; BMI 33.8
== END 2024-01-29 11:01 | disposition home or self-care (01) ==
PROVIDERS: PCP Internal Medicine; Referring Provider Internal Medicine; Visit Provider Internal Medicine Cardiovascular Disease
DX: I10 Essential (primary) hypertension (principal)
CPT/HCPCS: 93010; 99214

== ENCOUNTER 2024-02-11 08:42 | Outpatient (REF) | payer MEDICARE, MEDICAID, SELFPAY ==
--- NOTE | ~2024-02-11 | US_ITS ---
EXAMINATION: ULTRASOUND RENAL WITH DOPPLER CLINICAL INFORMATION: Essential primary hypertension COMPARISON: CT abdomen from 06/19/2023 TECHNIQUE: Real-time grayscale, color Doppler, and duplex Doppler evaluation of the kidneys and renal vasculature was performed. FINDINGS: RENAL MEASUREMENTS: Right: 12.2 x 4.6 x 4.4 cm (Sag x AP x TV) Left: 12.0 x 4.9 x 4.7 cm (Sag x AP x TV) The renal parenchyma appears normal. No hydronephrosis or nephrolithiasis. DOPPLER INTERROGATION: Aorta: 102.1 cm/sec (Hologic greater than 100 cm/s cannot be used to calculate the RAR) RIGHT: Main Renal Artery: Proximal: 129 cm/sec Mid: 163 cm/sec Distal: 125 cm/sec Resistive Index: Upper Pole Segmental: 0.66 Inter Polar Segmental: 0.71 Lower Pole Segmental: 0.72 Right renal vein is patent. LEFT: Main Renal Artery: Proximal: 150 cm/sec Mid: 125 cm/sec Distal: 226 cm/sec Resistive Index: Upper Pole Segmental: 0.69 Inter Polar Segmental: 0.81 Lower Pole Segmental: 0.67 Left renal vein is patent. Renal-Aortic Ratio (RAR): Right: Not applicable secondary to mid aortic velocity greater than 100 cm/s Left: Not applicable secondary to mid aortic velocity greater than 100 cm/s US/US renal doppler IMPRESSION: 1. No nephrolithiasis or hydronephrosis. 2. Mid aortic velocity greater than 100 cm/s precludes evaluation of the RAR. 3. RIGHT: No sonographic evidence of renal artery stenosis. 4. LEFT: Borderline elevated interpolar segmental resistivity indices and elevated velocity of the distal renal artery suggesting stenosis though further evaluation is limited without an RAR.
== END 2024-02-11 08:43 | disposition home or self-care (01) ==
LOC: HO.US 08:42
PROVIDERS: PCP Internal Medicine; Visit Provider Internal Medicine Cardiovascular Disease
DX: I10 Essential (primary) hypertension (principal)
CPT/HCPCS: 93975

== ENCOUNTER 2024-02-14 20:16 | Emergency (ER) | payer MEDICARE, MEDICAID, SELFPAY ==
--- NOTE | 2024-02-14 | ECG_ITS ---
Test Reason : cp Blood Pressure : / mmHG Vent. Rate : 083 BPM Atrial Rate : 083 BPM P-R Int : 146 ms QRS Dur : 072 ms QT Int : 386 ms P-R-T Axes : 052 002 029 degrees QTc Int : 453 ms Normal sinus rhythm Nonspecific ST and T wave abnormality Abnormal ECG When compared with ECG of 02-APR-2023 00:09, No significant change was found Referred By: Generic ED Physician Electronically Signed By:JACKY JORGENSEN
[2024-02-14 20:54] LABS: MANUAL DIFF FLAG NO
[2024-02-14 20:56] VITALS: BP 224/91; PULSE 64; RESP 18; TEMP 36.8; O2SAT 98; BMI 34.0
[2024-02-14 20:58] LABS: Basophils Percent Auto 0.5 % (0-2); Eosinophils Absolute Auto 0.1 X10*3/uL (0.0-0.4); Eosinophils Percent Auto 1.7 % (0-4); Hematocrit 36.2 % (37.0-47.0); Hemoglobin 12.3 g/dl (12.0-16.0); Imm Gran Abs Auto 0.03 X10*3/uL (0.00-0.03); Imm Gran Pct Auto 0.4 % (0.0-0.4); Lymphocytes Absolute Auto 1.9 X10*3/uL (1.2-4.9); Lymphocytes Percent Auto 25.3 % (20-40); Mean Corpuscular Hemoglobin 27.2 pg (27.0-33.0); Mean Corpuscular Volume 80.1 fL (80.0-98.0); Mean Platelet Volume 9.6 fL (9.4-12.3); Monocytes Absolute Auto 0.6 X10*3/uL (0.1-1.2); Monocytes Percent Auto 8.3 % (2-11); Neutrophils Absolute Auto 4.7 x10*3/uL (2.0-8.3); Neutrophils Percent Auto 63.8 % (45-73); Platelet Count 256 X10*3/uL (160-400); Red Blood Count 4.52 X10*6/uL (4.20-5.50); Red Cell Distribution Width 14.6 % (11.0-16.0); White Blood Count 7.4 X10*3/uL (4.8-10.8)
[2024-02-14 21:14] LABS: Alanine Aminotransferase 45 U/L (0-31); Albumin Level 4.4 g/dL (3.5-5.0); Alkaline Phosphatase 87 U/L (39-117); Anion Gap 15 (12-20); Aspartate Amino Transferase 22 U/L (5-31); Bilirubin Total 0.2 mg/dL (0.0-1.0); Blood Urea Nitrogen 18 mg/dL (9-16); Calcium 9.8 mg/dL (8.4-10.2); Carbon Dioxide 25 mmol/L (22-29); Chloride 105 mmol/L (96-108); Creatinine Clr Calc Pharmacy 77.4; Estimated Glomerular Filt Rate 59; Glucose Random 136 mg/dL (60-115); Potassium 3.8 mmol/L (3.3-5.1); Sodium 141 mmol/L (135-145); Total Protein 7.3 g/dL (6.5-8.0)
[2024-02-14 21:15] LABS: Troponin-I High Sensitivity < 2.7 ng/L (<3.5-17.0)
[2024-02-14 21:40] VITALS: BP 204/91; PULSE 70
[2024-02-14] MEDS: Labetalol HCL 100 MG/20 ML VIAL 10 MG IVPUSH (21:40)
--- NOTE | 2024-02-14 21:45 | ED_ITS ---
HPI - Chest Pain General Chief Complaint: Chest Pain Stated Complaint: hypertension, chest pain Time Seen by Provider: 02/14/24 21:04 Source: patient, RN notes reviewed, old records reviewed and seismic interpreter Mode of arrival: ambulatory Limitations: language barrier History of Present Illness ED Provider: Nora HPI narrative: 53-year-old female with past medical history significant for uncontrolled hypertension, obesity, previous CVA x3, obstructive sleep apnea, presenting for evaluation of headache, chest pain and high blood pressure. Patient states that she has been compliant with all of her medications up until her nighttime medications tonight because she presents to the ER instead of taking medications. She is on lisinopril, hydrochlorothiazide, amlodipine, carvedilol for hypertension Patient states that she has an 8/10 global headache that started about an hour and a half prior to arrival. She also complains of burning chest pressure that she states is mild. Patient reports increased stress due to her son's incarceration Denies any trauma to the head or neck She denies any personal history of coronary artery disease Related Data Home Medications ?Medication ?Instructions ?Recorded ?Confirmed amlodipine 10 mg tablet 10 mg PO DAILY 05/27/22 01/29/24 diclofenac sodium 75 mg 75 mg PO BID 05/27/22 01/29/24 tablet,delayed release doxazosin 4 mg tablet 4 mg PO BEDTIME 05/27/22 01/29/24 atorvastatin 80 mg tablet 80 mg PO BEDTIME 10/29/22 01/29/24 hydroxyzine HCl 50 mg tablet 50 mg PO BEDTIME 10/29/22 01/29/24 sertraline 50 mg tablet 50 mg PO DAILY 10/29/22 01/29/24 aspirin 81 mg tablet,delayed 81 mg PO DAILY 12/10/22 01/29/24 release trazodone 150 mg tablet 150 mg PO BEDTIME 12/10/22 01/29/24 carvedilol 12.5 mg tablet 12.5 mg PO BID 12/30/22 01/29/24 rosuvastatin 40 mg tablet 40 mg PO BEDTIME 05/16/23 01/29/24 Previous Rx's ?Medication ?Instructions ?Recorded furosemide 20 mg tablet 20 mg PO DAILY #30 tabs 06/19/23 gabapentin 300 mg capsule 300 mg PO BID pain 30 days #60 caps 09/18/23 diclofenac sodium 1 % topical gel 4 g topical QID for pain #100 grams 10/27/23 Allergies Allergy/AdvReac Type Severity Reaction Status Date / Time No Known Allergies Allergy Verified 02/14/24 21:00 [No Known Allergies*] Review of Systems 2 Constitutional: Constitutional: Denies body ache(s), Denies chills, Denies fever(s) and Reports headache(s) Eyes: Eyes: Denies blurry vision ENT: Denies vertigo, Denies dizziness and Reports headache(s) Cardiovascular: Cardiovascular: Reports chest pain, Reports chest pain at rest and Denies dyspnea Respiratory: Respiratory: Denies cough and Denies dyspnea Gastrointestinal: Gastrointestinal: Denies abdominal pain, Denies nausea and Denies vomiting Musculoskeletal: Musculoskeletal: Denies back pain Integumentary/Breasts: Skin/Breast: Denies rash Neurologic: Denies vertigo, Denies dizziness and Reports headache(s) FOR[facility]LY [facility], [facility] Past Medical History Medical History TIA (transient ischemic attack) CVA (cerebral vascular accident) Hypertension FH: breast cancer in first degree relative Abnormal Pap smear of cervix Ovarian cyst Depression HTN (hypertension) Surgical History H/O prior ablation treatment Hx of tubal ligation History of removal of ovarian cyst Family History Family History Paternal Aunt Breast cancer Sister Breast cancer, Onset Age: 46 Social History Social History Household Members: Children Housing: Apartment Do you presently have visiting nurse or other home services: No Alcohol intake: never Comment: Pt refuses alarms-ambulating independently Patient Tobacco Use Status: Never used Tobacco Smoked in Last 30 Days: No e-Cigarette/Vaping Use: Never Used Advance Directives: Yes Advance Directives on File: Yes Advance Directives Date on File: 05/09/21 service: No Current occupational status: disabled Gender identity: Female Physical Exam 2 Vital Signs: Vital Signs: Last Vital Signs Temp 98.1 F 02/15/24 00:00 Pulse 69 02/15/24 00:00 Resp 18 02/15/24 00:00 BP 176/91 H 02/15/24 00:00 Pulse Ox 98 02/15/24 00:00 O2 Del Method Room Air 02/15/24 00:00 BMI result Body Mass Index 34.0 Const: General: healthy appearing, comfortable, no acute distress, alert and awake Nutritional Appearance: well nourished Orientation/consciousness: p atient oriented x3 HEENT: Head: Yes normocephalic and Yes atraumatic Throat: Yes posterior oropharynx normal Eyes: Eyelids: Yes eyelids normal Conjunctivae: conjunctivae normal S clerae: sclerae normal Corneas: corneas normal Pupils: Equal, round and reactive pupils present EOM: EOMs intact bilaterally Neck: Neck: Yes full ROM Resp: Effort & Inspection: normal respiratory effort, able to speak in complete sentences and not labored Cardio: Rate: regular rate Rhythm: regular rhythm GI: Inspection: No distended Palpation (GI): Soft to palpation, not firm, nontender, no guarding and not rigid Skin: General skin exam: elasticity normal Neuro: General: patient oriented x3 Cranial nerves: Yes CN's II-XII intact bilaterally, Yes Equal, round and reactive pupils present and Yes Bilaterally intact EOM present Cognition (Neuro): normal cognition Course Reevaluation(s) Reevaluation #1: Patient's blood pressure improved to 176/91, her cardiac workup was unremarkable, she is currently asymptomatic and requesting discharge home. She is stable for discharge home at this time. Time: 00:40 Medications Administered Discontinued Medications Generic Name Dose Route Start Last Admin Trade Name Freq PRN Reason Stop Dose Admin Diphenhydramine HCl 25 mg 02/14/24 21:48 02/14/24 22:05 Diphenhydramine Hcl 50 Mg/Ml Vial IVPUSH 02/14/24 21:49 25 mg ONCE ONE Administration Labetalol HCl 10 mg 02/14/24 21:26 02/14/24 21:40 Labetalol Hcl 100 Mg/20 Ml Vial IVPUSH 02/14/24 21:27 10 mg ONCE ONE Administration Metoclopramide HCl 10 mg 02/14/24 21:48 02/14/24 22:05 Metoclopramide Hcl 10 Mg/2 Ml Vial IVPUSH 02/14/24 21:49 10 mg ONCE ONE Administration Medical Decision Making Medical Decision Making MDM Narrative: 83-year-old female with past medical history as documented above presents for evaluation of chest pain, headache and hypertension. The patient is followed by Nephrology due to uncontrolled hypertension. She is on 4 antihypertensive medications. She reports being compliant with these medications. She was seen here as recently as 01/16/2024 in the ER for hypertension. Plan for cardiac workup, she has no neuro deficits to suggest intracranial hemorrhage or mass effect. Plan to treat hypertension and re-evaluate. Differential Diagnosis Differential Diagnoses: The differential diagnosis associated with the presentation includes Uncontrolled hypertension Hypertensive urgency Hypertensive emergency Acute headache ACS less likely Anxiety Stress Lab Data MDM Lab Attestation statement: I reviewed the patient's lab results. Patient has no leukocytosis no significant anemia. She has a normal platelet count. There is no left shift. Chemistries are significant for a slightly elevated BUN to 18 with a normal creatinine of 0.98. Glucose is elevated to 136 but no evidence of DKA. It is important to note this is a random glucose draw no other significant electrolyte or chemistry abnormalities. There is no evidence of end-organ damage related to hypertension 02/14/24 20:50 02/14/24 20:50 Labs: Lab Results 02/14/24 02/15/24 Range/Units 20:50 00:04 WBC 7.4 (4.8-10.8) X10*3/uL RBC 4.52 (4.20-5.50) X10*6/uL Hgb 12.3 (12.0-16.0) g/dl Hct 36.2 L (37.0-47.0) % MCV 80.1 (80.0-98.0) fL MCH 27.2 (27.0-33.0) pg MCHC 34.0 (31.0-35.0) g/dl RDW 14.6 (11.0-16.0) % Plt Count 256 (160-400) X10*3/uL MPV 9.6 (9.4-12.3) fL Immature Gran % (Auto) 0.4 (0.0-0.4) % Neut % (Auto) 63.8 (45-73) % Lymph % (Auto) 25.3 (20-40) % Wharton % (Auto) 8.3 (2-11) % Eos % (Auto) 1.7 (0-4) % Baso % (Auto) 0.5 (0-2) % Lymph # (Auto) 1.9 (1.2-4.9) X10*3/uL Wharton # (Auto) 0.6 (0.1-1.2) X10*3/uL Eos # (Auto) 0.1 (0.0-0.4) X10*3/uL Baso # (Auto) 0.0 (0.0-0.2) X10*3/uL Abs Immat Gran (auto) 0.03 (0.00-0.03) X10*3/uL Absolute Neuts (auto) 4.7 (2.0-8.3) x10*3/uL Absolute Nucleated RBC 0.000 (0.0-0.012) X10*3/uL Nucleated RBC % (auto) 0.0 (0.0-0.2) /100WBC Sodium 141 (135-145) mmol/L Potassium 3.8 (3.3-5.1) mmol/L Chloride 105 (96-108) mmol/L Carbon Dioxide 25 (22-29) mmol/L Anion Gap 15 (12-20) BUN 18 H (9-16) mg/dL Creatinine 0.98 (0.5-1.4) mg/dL Estim Creat Clear Calc 77.4 Estimated GFR 59 Random Glucose 136 H (60-115) mg/dL Calcium 9.8 (8.4-10.2) mg/dL Total Bilirubin 0.2 (0.0-1.0) mg/dL AST 22 (5-31) U/L ALT 45 H (0-31) U/L Alkaline Phosphatase 87 (39-117) U/L Troponin I High Sens < 2.7 < 2.7 (<3.5-17.0) ng/L Total Protein 7.3 (6.5-8.0) g/dL Albumin 4.4 (3.5-5.0) g/dL Independent Interpretation I performed an independent interpretation of an: EKG Interpretation: Normal sinus rhythm with a rate of [address] segment elevation or depressions. No significant change when compared to previous from 04/02/2023. Discharge Plan Discharge Clinical Impression: HTN (hypertension), Chest pain, Headache Patient Disposition: Home, Self-Care Instructions: Chronic Hypertension (ED), Acute Headache (ED), Chest Pain (ED) Additional Instructions: Your workup in the emergency department today was reassuring. This includes your cardiac workup with blood work, EKG as well as her CT scan of your brain. Follow-up with your primary doctor and your collections agent regarding your elevated blood pressure Take all your current medications as prescribed Prescriptions: No Action diclofenac sodium 1 % gel 4 g topical QID Qty: 100 3RF trazodone 150 mg tablet 150 mg PO BEDTIME carvedilol 12.5 mg tablet 12.5 mg PO BID Rx Instructions: must administer with a meal/food - Take 1.5 tablets twice daily atorvastatin 80 mg tablet 80 mg PO BEDTIME hydroxyzine HCl 50 mg tablet 50 mg PO BEDTIME sertraline 50 mg tablet 50 mg PO DAILY diclofenac sodium 75 mg tablet,delayed release (DR/EC) 75 mg PO BID doxazosin 4 mg tablet 4 mg PO BEDTIME amlodipine 10 mg tablet 10 mg PO DAILY gabapentin 300 mg capsule 300 mg PO BID 30 Days Qty: 60 1RF aspirin 81 mg tablet,delayed release (DR/EC) 81 mg PO DAILY rosuvastatin 40 mg tablet 40 mg PO BEDTIME furosemide 20 mg tablet 20 mg PO DAILY Qty: 30 3RF Print Language: Iraqi
[2024-02-14 22:00] VITALS: BP 184/86; PULSE 62; RESP 22; TEMP 36.7; O2SAT 97
[2024-02-14] MEDS: diphenhydrAMINE HCL 50 MG/ML VIAL 25 MG IVPUSH (22:05)
[2024-02-14] MEDS: Metoclopramide HCl 10 MG/2 ML VIAL IVPUSH (22:05)
[2024-02-15] VITALS: BP 176/91; PULSE 69; RESP 18; TEMP 36.7; O2SAT 98
[2024-02-15 00:32] LABS: Troponin-I High Sensitivity < 2.7 ng/L (<3.5-17.0)
[2024-02-15 00:54] VITALS: BP 176/91; PULSE 69; RESP 18; TEMP 36.7; O2SAT 98
== END 2024-02-15 00:55 | disposition home or self-care (01) ==
PROVIDERS: Physician Assistant; Emergency Provider Emergency Medicine; PCP Internal Medicine
DX: R07.9 Chest pain, unspecified (principal); I10 Essential (primary) hypertension; R51.9 Headache, unspecified; Z86.73 Personal history of transient ischemic attack (TIA), and cerebral infarction without residual deficits; Z79.02 Long term (current) use of antithrombotics/antiplatelets; Z79.82 Long term (current) use of aspirin; Z79.899 Other long term (current) drug therapy
CPT/HCPCS: 36415; 80053; 84484; 85025; 93005; 96374; 96375; 99284; 99285; J1200; J1920; J2765

== ENCOUNTER → 2024-02-14 20:17 | Outpatient (BNV) | payer MEDICARE, MEDICAID, SELFPAY | PROVIDERS: Emergency Provider Emergency Medicine; PCP Internal Medicine; Visit Provider Internal Medicine | DX: R07.9 Chest pain, unspecified (principal); R94.31 Abnormal electrocardiogram [ECG] [EKG] | CPT/HCPCS: 93010 ==

== ENCOUNTER → 2024-03-18 13:35 | Outpatient (REF) | payer MEDICARE, MEDICAID, SELFPAY | LOC: HO.SL 13:35 | PROVIDERS: PCP Internal Medicine; Visit Provider Internal Medicine Cardiovascular Disease | DX: R06.83 Snoring (principal); I10 Essential (primary) hypertension; R40.0 Somnolence; G47.33 Obstructive sleep apnea (adult) (pediatric) | CPT/HCPCS: 95806 ==

== ENCOUNTER → 2024-03-18 13:49 | Outpatient (BNV) | payer MEDICARE, MEDICAID, SELFPAY | PROVIDERS: PCP Internal Medicine; Visit Provider Internal Medicine | DX: R06.83 Snoring (principal) | CPT/HCPCS: 95806 ==

== ENCOUNTER 2024-03-20 11:57 | Emergency (ER) | payer MEDICARE, MEDICAID, SELFPAY ==
[2024-03-20 12:03] VITALS: BP 207/91; PULSE 86; RESP 16; TEMP 36.8; O2SAT 95; BMI 26.6
--- NOTE | 2024-03-20 12:03 | ED_ITS ---
HPI - Skin/Abscess/Foreign Bdy General Chief complaint: Wound/Laceration Stated complaint: hand laceration Time Seen by Provider: 03/20/24 12:11 Source: patient and legal activity adjudicator (taiwanese) Mode of arrival: ambulatory Limitations: language barrier (taiwanese speaking) History of Present Illness ED Provider: PINEDA BETTENCOURT PA-C HPI narrative: 53-year-old Russian-speaking [id number] female with pmhx of uncontrolled hypertension presents to the ED today for evaluation of laceration sustained to right hand 20 minutes prior to arrival. She states that while washing the dishes, she accidentally cut the palm of her right hand with a knife. The area immediately began to bleed. She reports washing the laceration out and coming to the emergency department. Denies anticoagulation. Tetanus not UTD. Not on anticoagulation. Related Data Home Medications ?Medication ?Instructions ?Recorded ?Confirmed amlodipine 10 mg tablet 10 mg PO DAILY 05/27/22 01/29/24 diclofenac sodium 75 mg 75 mg PO BID 05/27/22 01/29/24 tablet,delayed release doxazosin 4 mg tablet 4 mg PO BEDTIME 05/27/22 01/29/24 atorvastatin 80 mg tablet 80 mg PO BEDTIME 10/29/22 01/29/24 hydroxyzine HCl 50 mg tablet 50 mg PO BEDTIME 10/29/22 01/29/24 sertraline 50 mg tablet 50 mg PO DAILY 10/29/22 01/29/24 aspirin 81 mg tablet,delayed 81 mg PO DAILY 12/10/22 01/29/24 release trazodone 150 mg tablet 150 mg PO BEDTIME 12/10/22 01/29/24 carvedilol 12.5 mg tablet 12.5 mg PO BID 12/30/22 01/29/24 rosuvastatin 40 mg tablet 40 mg PO BEDTIME 05/16/23 01/29/24 Previous Rx's ?Medication ?Instructions ?Recorded furosemide 20 mg tablet 20 mg PO DAILY #30 tabs 06/19/23 gabapentin 300 mg capsule 300 mg PO BID pain 30 days #60 caps 09/18/23 diclofenac sodium 1 % topical gel 4 g topical QID for pain #100 grams 10/27/23 Allergies Allergy/AdvReac Type Severity Reaction Status Date / Time No Known Allergies Allergy Verified 03/20/24 12:06 [No Known Allergies*] Review of Systems Review of Systems: Constitutional: No fever, chills, fatigue, night sweats, weight changes ENT/Mouth: No ear pain, hearing loss, nasal congestion, sinus pain, rhinorrhea, sore throat Eyes: No eye pain, swelling, redness, vision changes, discharge Cardio: No chest pain, palpitations, RÍOS, orthopnea, peripheral edema Pulm: No SOB, cough, sputum, wheezing, dyspnea, hemoptysis GI: No nausea, vomiting, hematemesis, abdominal pain, diarrhea, constipation, hematochezia, melena : No irregular bleeding, dysuria, frequency, urgency, hesitancy, hematuria, flank pain, urinary flow changes, urinary incontinence or retention MSK: No back pain, neck pain, joint pain, myalgias Skin: No lesions, rashes, +hand laceration Neuro: No weakness, numbness, paresthesias, LOC, dizziness, headache Psych: No anxiety/panic, depression, SI/HI, AH/VH All other systems reviewed and are negative. [facility] Past Medical History Attestation statement: The following information was validated with the patient. Source: old records reviewed and nursing notes reviewed Medical History TIA (transient ischemic attack) CVA (cerebral vascular accident) Hypertension FH: breast cancer in first degree relative Abnormal Pap smear of cervix Ovarian cyst Depression HTN (hypertension) Surgical History H/O prior ablation treatment Hx of tubal ligation History of removal of ovarian cyst Family History Family History Paternal Aunt Breast cancer Sister Breast cancer, Onset Age: 46 Social History Social History Household Members: Children Housing: Apartment Do you presently have visiting nurse or other home services: No Alcohol intake: never Comment: Pt refuses alarms-ambulating independently Patient Tobacco Use Status: Never used Tobacco e-Cigarette/Vaping Use: Never Used Advance Directives: Yes Advance Directives on File: Yes Advance Directives Date on File: 05/09/21 Do you have a plan to hurt others: No Plan service: No Current occupational status: disabled Gender identity: Female Physical Exam Vital Signs: Vital Signs: Last Vital Signs Temp 98.2 F 03/20/24 12:03 Pulse 86 03/20/24 12:03 Resp 16 03/20/24 12:03 BP 207/ H 03/20/24 12:03 Pulse Ox 95 03/20/24 12:03 O2 Del Method Room Air 03/20/24 12:03 BMI result Body Mass Index 26.6 Hypertensive, vitals otherwise wnl. General: Well appearing, in no acute distress. Skin: Warm, dry, intact. No rashes or lesions. Head: Normocephalic, atraumatic. Cardiac: Chest wall symmetric. RRR. No MRG. No JVD. Lungs: Normal respiratory effort without accessory muscle use. CTA bilaterally. No rales, rhonchi, or wheezes.? Ext: v-shaped laceration to right thenar eminence. bleeding controlled. no involvement of deeper structures. 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 finger to thumb opposition intact. 2+ radial/lunar pulse intact. Neuro: AOx3. Normal speech. CN 2-12 grossly intact. Strength 5/5 intact throughout. No saddle anesthesia. Sensation intact to light touch. NV intact distally. Reflexes 2+ bilaterally. Ambulating with steady gait. Psych: Appropriate mood and affect. Responds appropriately to questions. Course Course Course Narrative: This is an RME performed by Ghazala Reynolds CNP: Additional HPI, ROS, PE not included below will be deferred to primary provider. Patient is a 53-year-old female who presents to the emergency department for evaluation of accidental laceration from a knife to the right thenar eminence, she is right-hand dominant. Unaware of date of last tetanus vaccination. No use of anticoagulants. Reevaluation(s) Reevaluation #1: 1319 -- patient initially noted to be hypertensive to the . When compared to priors, this appears to be around patient's baseline as she was not compliant with her medications. She does not endorse any headache dizziness vision changes chest pain or palpitations this time. I did discuss follow up with PCP regarding med management and patient is agreeable with this. > lac repaired with 6 sutures. patient tolerated procedure well. tdap updated. Patient has remained stable throughout ED visit today. Discussed worrisome signs and symptoms and when to return to the ED. All questions answered at this time. Patient is agreeable with disposition and stable for discharge. Medical Decision Making Medical Decision Making MDM Narrative: 53-year-old Russian-speaking [id number] female with pmhx of uncontrolled hypertension presents to the ED today for evaluation of laceration sustained to right hand prior to arrival. Hypertensie to 207/ which appears to be around patient's baseline when compared to priors, consistent with her nonmed compliance. She is asymptomatic. On exam, there is a v-shaped laceration to right thenar eminence. bleeding controlled. no involvement of deeper structures. 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 finger to thumb opposition intact. 2+ radial/lunar pulse intact. Differential diagnosis includes laceration. Unlikely fracture, tendon/ligament injury. Plan for suture repair and tdap booster. Differential Diagnosis Differential Diagnoses: The differential diagnosis associated with the presentation includes as above. Admission/Observation Not indicated. Social Determinants Patient?s care significantly limited by Social Determinants of Health including: Other Social Determinant of Health Procedures Laceration Laceration 1: Site: hand Side (If applicable): right Size (cm): 3 Description: irregular (v shaped) Depth: simple, single layer Local Anesthetic: lidocaine 1% Amount of anesthesia used (mL): 10 Pre-repair: wound explored, irrigated extensively and deep structures intact Skin layer closed with: nylon Size (cm): 3-0 Number of sutures: 6 Technique: simple, interrupted Critical Care Time Critical Care Time Critical Care Time: No Discharge Plan Discharge Clinical Impression: Laceration of right palm Qualifiers: Encounter type: initial encounter Qualified Code(s): S61.411A - Laceration without foreign body of right hand, initial encounter Patient Disposition: Still a Patient Instructions: Care For Your Stitches (ED), Laceration (ED) Additional Instructions: You have been evaluated in the Emergency Department today for a laceration to your right hand. Your laceration was repaired in the ED with 6 sutures.? Please keep the area surrounding the laceration clean and dry. Please keep the area out of the sunlight for the next 6 months to help prevent scarring.? If you develop redness or swelling at the site of your laceration please come back to the ER for a wound check. I recommend you take 600mg ibuprofen every 6 hours or tylenol 650mg every 6 hours as needed for pain. If needed, you can alternate these medications so that you take one medication every 3 hours. For example, at noon take ibuprofen, then at 3pm take tylenol, then at 6pm take ibuprofen. Please follow up with your primary care physician in 7-10 days for suture removal. You can also return to the ER or another urgent care facility for this service. Return to the Emergency Department if you experience discharge from your laceration, redness around your laceration, warmth around your laceration, fever, vomiting, numbness, tingling, or any other concerning symptoms. In the case of an emergency call 911. Please follow up with your PCP regarding your high blood pressure. Make sure you are taking your home medications as prescribed. Prescriptions: No Action diclofenac sodium 1 % gel 4 g topical QID Qty: 100 3RF trazodone 150 mg tablet 150 mg PO BEDTIME carvedilol 12.5 mg tablet 12.5 mg PO BID Rx Instructions: must administer with a meal/food - Take 1.5 tablets twice daily atorvastatin 80 mg tablet 80 mg PO BEDTIME hydroxyzine HCl 50 mg tablet 50 mg PO BEDTIME sertraline 50 mg tablet 50 mg PO DAILY diclofenac sodium 75 mg tablet,delayed release (DR/EC) 75 mg PO BID doxazosin 4 mg tablet 4 mg PO BEDTIME amlodipine 10 mg tablet 10 mg PO DAILY gabapentin 300 mg capsule 300 mg PO BID 30 Days Qty: 60 1RF aspirin 81 mg tablet,delayed release (DR/EC) 81 mg PO DAILY rosuvastatin 40 mg tablet 40 mg PO BEDTIME furosemide 20 mg tablet 20 mg PO DAILY Qty: 30 3RF Referrals: Ani Bright MD [Primary Care Provider] - Print Language: Russian
[2024-03-20 13:32] VITALS: BP 216/98; PULSE 68; RESP 18; TEMP 36.4; O2SAT 96
[2024-03-20] MEDS: Diphth,Pertus(ACell),Tet Adult 0.5 ML SYRINGE IM (13:39)
[2024-03-20] MEDS: Lidocaine HCl 1 % MPF 5 ML VIAL INFILTRATI ×2 (13:39)
--- NOTE | 2024-03-20 13:46 | PC.NURSE ---
wound cleaned and sutured by provider. this RN dressed and wrapped hand. tdap given left deltoid, pt tolerated well. discharge instructions and VIS reviewed via video attraction worker.
[2024-03-20 13:48] VITALS: BP 216/98; PULSE 68; RESP 18; TEMP 36.4; O2SAT 96
== END 2024-03-20 13:49 | disposition home or self-care (01) ==
PROVIDERS: Emergency Provider Emergency Medicine; PCP Internal Medicine
DX: S61.411A Laceration without foreign body of right hand, initial encounter (principal); W26.0XXA Contact with knife, initial encounter; Y93.9 Activity, unspecified; Y92.89 Other specified places as the place of occurrence of the external cause; Y99.9 Unspecified external cause status; Z23 Encounter for immunization
CPT/HCPCS: 12002; 90471; 90715; 99283; 99284

== ENCOUNTER 2024-04-14 09:32 | Outpatient (REF) | payer MEDICARE, MEDICAID, SELFPAY ==
[2024-04-14 09:42] LABS: MANUAL DIFF FLAG NO
[2024-04-14 10:04] LABS: Basophils Percent Auto 0.8 % (0-2); Eosinophils Absolute Auto 0.1 X10*3/uL (0.0-0.4); Eosinophils Percent Auto 2.3 % (0-4); Hematocrit 39.6 % (37.0-47.0); Hemoglobin 13.1 g/dl (12.0-16.0); Imm Gran Abs Auto 0.02 X10*3/uL (0.00-0.03); Imm Gran Pct Auto 0.4 % (0.0-0.4); Lymphocytes Absolute Auto 1.6 X10*3/uL (1.2-4.9); Lymphocytes Percent Auto 31.7 % (20-40); Mean Corpuscular HGB Conc 33.1 g/dl (31.0-35.0); Mean Corpuscular Hemoglobin 26.8 pg (27.0-33.0); Mean Platelet Volume 9.7 fL (9.4-12.3); Monocytes Absolute Auto 0.3 X10*3/uL (0.1-1.2); Monocytes Percent Auto 6.6 % (2-11); Neutrophils Percent Auto 58.2 % (45-73); Platelet Count 237 X10*3/uL (160-400); Red Blood Count 4.89 X10*6/uL (4.20-5.50); White Blood Count 5.2 X10*3/uL (4.8-10.8)
[2024-04-14 12:50] LABS: Cholesterol 243 mg/dL (<200); HDL Cholesterol 47 mg/dL (>40); LDL Cholesterol Calculated 147 mg/dL (<100); Triglycerides 247 mg/dL (<150)
== END 2024-04-14 09:33 | disposition home or self-care (01) ==
LOC: HO.LAB 09:32
PROVIDERS: Absent Provider Internal Medicine; PCP Internal Medicine; Visit Provider Internal Medicine Hypertension Specialist
DX: Z00.01 Encounter for general adult medical examination with abnormal findings (principal); E78.00 Pure hypercholesterolemia, unspecified; I10 Essential (primary) hypertension; R73.01 Impaired fasting glucose
CPT/HCPCS: 36415; 80061; 85025

== ENCOUNTER 2024-04-16 14:00 | Outpatient (AMB) | payer MEDICARE, MEDICAID, SELFPAY ==
[2024-04-16 14:02] VITALS: BP 196/96; PULSE 80; O2SAT 97; BMI 33.3
--- NOTE | 2024-04-16 14:02 | MHC.OFFVIS ---
Vital Signs 04/16/24 14:02 Height 5 ft 6 in Weight 206 lb 5.643 oz BMI 33.3 BP 196/96 H Blood Pressure Location Lt brachial Position Sitting Pulse 80 Pulse Source Pulse Oximeter Pulse Oximetry (%) 97 Oxygen Delivery Method Room Air Intake Visit Reasons: Routine colo scrn Intake Note: Michelle presents in office today for a scheduled colo consult CC: Pt was unsure why she was coming in today. PCP was not forthcoming with the information per pt. Pt denies any GI sx or hx. Pt does reort having pertinent family hx via her sister and her father. Pt states that her sister had breast cancer, and her father had leukemia. Pt also reports family hx of polyps. Core Cutter And Reamer Required: Yes Core Cutter And Reamer Services: Core Cutter And Reamer Present [employer] Cutter And Reamer Name: [id number] Information Interpreted: non-clinical & clinical Accompanied by: Family/Other Allergies No Known Allergies [No Known Allergies*] Allergy (Verified 04/16/24 14:03) HPI HPI Routine colo scrn: Details: 53 year old? female here today for pre colonoscopy screening.? Patient was sent to us by her PCP.? This is her first colonoscopy screening.? Patient denies any gastrointestinal symptoms in the past or at present.? Denies any personal or family history of gastrointestinal disease, colon polyps, or CRC.? Denies history of difficulty with sedation or anesthesia in the past.? Negative for history of sleep apnea.? Denies any history of cardiac, renal, pulmonary, or hepatic disease.?? No history of infectious? diseases like hepatitis A, B, C, HIV or tuberculosis.? Patient is on low-dose aspirin. Patient's blood pressure high in the office. Patient reports that she took her medication this morning, reports that she had a dental procedure this morning [facility] Medical History TIA (transient ischemic attack) CVA (cerebral vascular accident) Hypertension FH: breast cancer in first degree relative Abnormal Pap smear of cervix Ovarian cyst Depression HTN (hypertension) Surgical History H/O prior ablation treatment Hx of tubal ligation History of removal of ovarian cyst Family History Paternal Aunt Breast cancer Sister Breast cancer, Onset Age: 46 Social History Household Members: Children Housing: Apartment Do you presently have visiting nurse or other home services: No Alcohol intake: never Comment: Pt refuses alarms-ambulating independently Patient Tobacco Use Status: Never used Tobacco e-Cigarette/Vaping Use: Never Used Advance Directives Date on File: 05/09/21 service: No Current occupational status: disabled Gender identity: Female Review of Systems Const Denies weight gain and Denies weight loss ENT Reports no additional complaints, Denies dysphagia and Denies odynophagia Card Reports no additional complaints Resp Reports no additional complaints GI Denies abdominal pain, Denies belching, Denies melena, Denies bloating, Denies change in bowel habits, Denies dysphagia, Denies excessive flatus, Denies dyspepsia, Denies heartburn, Denies diarrhea, Denies loose stools, Denies nausea, Denies odynophagia and Denies vomiting Musc Reports no additional complaints Neuro Reports no additional complaints Psych Reports no additional complaints Endo Reports no additional complaints Physical Exam Vital Signs: Last Vital Signs Pulse 80 04/16/24 14:02 BP 196/96 H 04/16/24 14:02 Pulse Ox 97 04/16/24 14:02 Oxygen Delivery Method Room Air 04/16/24 14:02 BMI result Body Mass Index 33.3 Const General: healthy appearing, no acute distress and well developed Nutritional Appearance: well nourished Orientation/consciousness: patient oriented x3 Resp Effort & Inspection: normal respiratory effort, able to speak in complete sentences, no tracheal deviation and symmetric chest movement Auscultation: clear to auscultation bilaterally Cardio Rate: regular rate GI Inspection: Yes normal to inspection and No distended Palpation (GI): Soft to palpation, not firm, nontender and No hepatosplenomegaly present Auscultation: normal bowel sounds General: Yes no CVA tenderness Back/Spine/Pelvis Back: no CVA tenderness Skin General skin exam: elasticity normal, turgor normal and dry skin Neuro General: patient oriented x3 Psych Appearance: grossly normal Mental Status: mental status grossly normal Assessment & Plan Assessment & Plan (1) Screen for colon cancer: Code(s): Z12.11 - Encounter for screening for malignant neoplasm of colon Plan Patient denies any GI, cardiac or respiratory symptoms.? Denies any issues with anesthesia in the past.? Denies any history of sleep apnea.? No history infectious diseases in the past or present.? Patient is on low-dose aspirin.? No family or personal history of colon cancer or polyps.? Patient denies melena, hematochezia, unintentional weight loss or ribbon like stools.? Discussed at length the pre-procedure,? prep, diet & medications as well as what to expect prior, during and after the procedure.?? Stressed the importance of good bowel prep.? Recommended the use of Vaseline or Calmoseptine OTC & baby wipes with bowel movements to promote comfort.? ?Patient verbalizes understanding and agrees to plan of care.? She was given the opportunity to ask questions and all questions answered.? We will see her after the procedure.? Medications: New magnesium citrate Drink one bottle at 17:00 and 2nd bottle at 22:00 296 mL PO ONCE 296 mL 1RF constipation Z12.11 - Encounter for screening for malignant neoplasm of colon bisacodyl (Dulcolax (bisacodyl)) Start taking 2 tablet every night 6 days before the procedure and 1 day before procedure take 2 tablets at noon time followed by MiraLax prep 10 mg (2 x 5 mg) PO BEDTIME 14 tabs 0RF Z12.11 - Encounter for screening for malignant neoplasm of colon Coding Level of Care Code New Pt Level 3 (89766) Diagnoses Screen for colon cancer Z12.11 Time Spent (min) 40 Comment 30 minutes spent with patient and additional 10 minutes spent reviewing her records
== END 2024-04-16 14:57 | disposition home or self-care (01) ==
PROVIDERS: PCP Internal Medicine; Visit Provider Nurse Practitioner Family
DX: Z01.818 Encounter for other preprocedural examination (principal); Z12.11 Encounter for screening for malignant neoplasm of colon; Z83.719 Family history of colon polyps, unspecified
CPT/HCPCS: 99024

== ENCOUNTER → 2024-04-16 14:00 | Outpatient (BNVA) | payer MEDICARE, MEDICAID, SELFPAY | PROVIDERS: PCP Internal Medicine; Visit Provider Nurse Practitioner Family | DX: Z12.11 Encounter for screening for malignant neoplasm of colon (principal) | CPT/HCPCS: 99212 ==

== ENCOUNTER 2024-04-27 14:41 | Outpatient (REF) | payer MEDICARE, MEDICAID, SELFPAY ==
--- NOTE | ~2024-04-27 | CT_ITS ---
EXAMINATION: CT ANGIOGRAPHY ABDOMEN AND PELVIS WITHOUT AND WITH CONTRAST CLINICAL INFORMATION: Atherosclerosis of renal artery COMPARISON: None TECHNIQUE: Initial noncontrast localizing manager interventional images were obtained. A timing bolus at the level of the celiac artery was calculated. Subsequently, arterial phase multidetector volumetric imaging was performed through the abdomen and pelvis following the administration of 85 mL Omnipaque 350 intravenous contrast. No contrast reaction reported. Sagittal and coronal reformatted images were obtained on the technologist workstation. After extensive post-processing on a dedicated 3-D workstation, 3-D reformatted images were uploaded to PACS and reviewed as well. This CT examination was performed using dose optimization techniques as appropriate, variously including the following: *Automated exposure control *Adjustment of mA and/or kV according to patient size (this includes techniques or standardized protocols for targeted exams where dose is matched to indication/reason for exam; i.e. extremities or head) *Use of iterative reconstruction technique DLP: 238 mGy-cm FINDINGS: VASCULAR FINDINGS: Aorta: No aneurysm or dissection of the abdominal aorta. No penetrating atheromatous ulcer. Mesenteric Arteries: Celiac artery is patent. 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 Superior mesenteric artery patent. Inferior mesenteric artery patent. Renal arteries: Single renal arteries bilaterally. Renal arteries are patent and without stenosis or other vascular anomaly. Iliac arteries: The common, external and internal iliac arteries are patent. Proximal femoral vessels are patent. NONVASCULAR: Lung Bases: The visualized lung bases are clear. Liver: Homogeneous hypoattenuation of the hepatic parenchyma consistent with hepatic steatosis. Hepatomegaly measuring 19 cm in the midclavicular line. Gallbladder: Contracted Biliary System: No intrahepatic or extrahepatic biliary dilation. Pancreas: Homogeneous in attenuation. Spleen: Normal in size. Genitourinary: Bilateral kidneys demonstrate symmetric enhancement. No perinephric fluid collection. No renal calculi. No hydroureteronephrosis. Adrenal Glands: Unremarkable. Reproductive: Uterus and and bilateral adnexa are unremarkable. Gastrointestinal: The visualized alimentary tract is normal in course. No evidence of obstruction. Appendix: The appendix is seen in its entirety and is unremarkable. Peritoneum: No pneumoperitoneum. No intra-abdominal fluid collection. Lymph Nodes: No pathologically enlarged abdominal or pelvic lymph nodes. Soft Tissues/Musculoskeletal: Moderate bilateral L5-S1 neural foraminal stenosis secondary to facet hypertrophy and disc osteophyte complex. Degenerative disc disease at L5-4-5 results in mild bilateral neural foraminal stenosis. No acute fractures or focal osseous lesions. CT/CT angio abdomen IMPRESSION: VASCULAR FINDINGS: 1. Normal morphology of single bilateral renal arteries without vascular pathology. No stenosis or atherosclerotic disease. Renal veins are patent bilaterally. 2. 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 NONVASCULAR FINDINGS: 1. Symmetric size of bilateral kidneys without atrophy. No hydronephrosis or renal calculi. 2. Hepatomegaly and hepatic steatosis. Fleischner guidelines were followed. Electronically signed by: Pillo Gooden DO 05/08/2024 09:43 AM EDT
[2024-04-27] MEDS: iohexoL 350 MG/ML 100 ML INFUS..BTL IV (16:41)
[2024-04-28 10:33] LABS: Creatinine POC 0.7 mg/dL (0.5-1.4); GFR POC > 60
== END 2024-04-27 14:42 | disposition home or self-care (01) ==
LOC: HO.CT 14:41
PROVIDERS: PCP Internal Medicine; Visit Provider Internal Medicine Cardiovascular Disease
DX: I70.1 Atherosclerosis of renal artery (principal); I10 Essential (primary) hypertension
CPT/HCPCS: 74175; 82565; Q9967

== ENCOUNTER 2024-04-28 19:44 | Emergency (ER) | payer MEDICARE, MEDICAID, SELFPAY ==
--- NOTE | ~2024-04-28 | CT_ITS ---
EXAMINATION: CT HEAD WITHOUT CONTRAST CLINICAL INFORMATION: Headache. Hypertension. COMPARISON: CTA Head and Neck from 10/29/2022. TECHNIQUE: Contiguous axial imaging was performed from the skull base to vertex without intravenous administration of contrast. This CT examination was performed using dose optimization techniques as appropriate, variously including the following: *Automated exposure control. *Adjustment of mA and/or kV according to patient size (this includes techniques or standardized protocols for targeted exams where dose is matched to indication/reason for exam; i.e. extremities or head). *Use of iterative reconstruction technique. DLP: 775 mGy-cm FINDINGS: There is chronic encephalomalacia within the medial aspect of the right occipital lobe and medial right cerebellar hemisphere with associated volume loss. Chronic lacunar infarct of the left thalamus. No additional loss of thomas-white matter differentiation. No evidence of acute intracranial hemorrhage. There is no abnormal attenuation within the brain parenchyma. The ventricles are normal in morphology and size. No evidence for obstructive hydrocephalus. No abnormal mass effect or midline shift. No extra-axial fluid collections. No acute soft tissue or osseous abnormalities. Mild mucosal thickening of the paranasal sinuses. The mastoid air cells and middle ear cavities are clear. CT/CT head/brain wo IV con IMPRESSION: 1. No evidence of acute intracranial hemorrhage or edematous territorial infarction. 2. Chronic encephalomalacia of the medial aspect of the right occipital lobe and medial right cerebellar hemisphere. Chronic lacunar infarct of the left thalamus. Electronically signed by: Julio Wood DO 04/28/2024 11:07 PM EDT
--- NOTE | ~2024-04-28 | XR_ITS ---
EXAMINATION: XR RIBS, RIGHT CLINICAL INFORMATION: Pain in right lower lobe ribs COMPARISON: None available. TECHNIQUE: 3 views of the right ribs were obtained. FINDINGS: Lungs are clear. No consolidation, pneumothorax, or pleural effusion. The cardiomediastinal silhouette and pulmonary vasculature are normal. Osseous structures are unremarkable. Ribs are intact. No fractures are identified. XR/XR ribs RT min 3V w CXR1V IMPRESSION: Unremarkable examination. Electronically signed by: Pillo Gooden DO 04/28/2024 11:04 PM EDT
[2024-04-28 19:51] VITALS: BP 208/110; PULSE 110; O2SAT 98
[2024-04-28 19:53] VITALS: BP 189/89; PULSE 85; RESP 22; TEMP 36.9; O2SAT 98; BMI 35.6
--- NOTE | 2024-04-28 19:57 | ECG_ITS ---
Test Reason : HIGH BP Blood Pressure : / mmHG Vent. Rate : 077 BPM Atrial Rate : 077 BPM P-R Int : 178 ms QRS Dur : 076 ms QT Int : 404 ms P-R-T Axes : 067 002 046 degrees QTc Int : 457 ms Normal sinus rhythm Normal ECG When compared with ECG of 14-FEB-2024 20:17, Nonspecific T wave abnormality no longer evident in Anterior leads Referred By: Generic ED Physician Electronically Signed By:VICTOR HUGO ELDER MD
[2024-04-28 20:16] LABS: MANUAL DIFF FLAG NO
[2024-04-28 20:23] LABS: Basophils Percent Auto 0.5 % (0-2); Eosinophils Absolute Auto 0.1 X10*3/uL (0.0-0.4); Eosinophils Percent Auto 1.7 % (0-4); Hematocrit 40.2 % (37.0-47.0); Hemoglobin 13.3 g/dl (12.0-16.0); Imm Gran Abs Auto 0.04 X10*3/uL (0.00-0.03); Imm Gran Pct Auto 0.5 % (0.0-0.4); Lymphocytes Absolute Auto 1.2 X10*3/uL (1.2-4.9); Mean Corpuscular HGB Conc 33.1 g/dl (31.0-35.0); Mean Corpuscular Hemoglobin 26.8 pg (27.0-33.0); Monocytes Absolute Auto 0.4 X10*3/uL (0.1-1.2); Monocytes Percent Auto 5.3 % (2-11); Neutrophils Absolute Auto 6.2 x10*3/uL (2.0-8.3); Platelet Count 277 X10*3/uL (160-400); Red Blood Count 4.96 X10*6/uL (4.20-5.50); Red Cell Distribution Width 13.9 % (11.0-16.0); White Blood Count 8.1 X10*3/uL (4.8-10.8)
[2024-04-28 20:38] LABS: Alanine Aminotransferase 61 U/L (0-31); Albumin Level 4.5 g/dL (3.5-5.0); Alkaline Phosphatase 92 U/L (39-117); Anion Gap 15 (12-20); Aspartate Amino Transferase 34 U/L (5-31); Bilirubin Total 0.2 mg/dL (0.0-1.0); Blood Urea Nitrogen 15 mg/dL (9-16); Calcium 9.7 mg/dL (8.4-10.2); Carbon Dioxide 27 mmol/L (22-29); Chloride 103 mmol/L (96-108); Creatinine Clr Calc Pharmacy 76.5; Estimated Glomerular Filt Rate 59; Glucose Random 135 mg/dL (60-115); Potassium 4.1 mmol/L (3.3-5.1); Sodium 141 mmol/L (135-145); Total Protein 7.9 g/dL (6.5-8.0)
[2024-04-28 20:43] LABS: Troponin-I High Sensitivity 13.8 ng/L (<3.5-17.0)
--- NOTE | 2024-04-28 20:50 | ED.HA ---
HPI - Headache General Chief Complaint: Headache Stated Complaint: HTN Crisis Time Seen by Provider: 04/28/24 20:00 Source: patient Mode of arrival: ambulatory Limitations: no limitations History of Present Illness ED Provider: denzel MORLEY Narrative: Patient has been coughing for last 1 week and been having pain on the right lower ribs from the cough does have running nose body aches today earlier do not son p.m. started having headache took her blood pressure medication which she has vomited light sensitive no history of migraines but does get headaches repeat blood pressure on arrival was 189/89 Related Data Home Medications ?Medication ?Instructions ?Recorded ?Confirmed amlodipine 10 mg tablet 10 mg PO DAILY 05/27/22 01/29/24 diclofenac sodium 75 mg 75 mg PO BID 05/27/22 01/29/24 tablet,delayed release doxazosin 4 mg tablet 4 mg PO BEDTIME 05/27/22 01/29/24 atorvastatin 80 mg tablet 80 mg PO BEDTIME 10/29/22 01/29/24 hydroxyzine HCl 50 mg tablet 50 mg PO BEDTIME 10/29/22 01/29/24 aspirin 81 mg tablet,delayed 81 mg PO DAILY 12/10/22 01/29/24 release rosuvastatin 40 mg tablet 40 mg PO BEDTIME 05/16/23 01/29/24 albuterol sulfate 90 mcg/actuation inhalation 04/16/24 aerosol inhaler (Ventolin HFA) carvedilol 25 mg tablet 25 mg PO BID 04/16/24 lisinopril 20 tab PO 04/16/24 mg-hydrochlorothiazide 25 mg tablet sertraline 100 mg tablet 100 mg PO DAILY 04/16/24 trazodone 300 mg tablet 300 mg PO BEDTIME 04/16/24 Previous Rx's ?Medication ?Instructions ?Recorded furosemide 20 mg tablet 20 mg PO DAILY #30 tabs 06/19/23 gabapentin 300 mg capsule 300 mg PO BID pain 30 days #60 caps 09/18/23 diclofenac sodium 1 % topical gel 4 g topical QID for pain #100 grams 10/27/23 bisacodyl 5 mg tablet,delayed 10 mg (2 x 5 mg) PO BEDTIME #14 04/16/24 release (Dulcolax (bisacodyl)) tabs magnesium citrate 296 ml PO ONCE constipation #296 mL 04/16/24 lexjowzfsk-kimnstwwwqajx-hqawhxiq 1 tab PO Q6H PRN haeadace #20 tabs 04/28/24 50 mg-325 mg-40 mg tablet prednisone 20 mg tablet 40 mg (2 x 20 mg) PO DAILY #10 tabs 04/28/24 tramadol 50 mg tablet 50 mg PO Q6H PRN pain #20 tabs 04/28/24 Allergies Allergy/AdvReac Type Severity Reaction Status Date / Time No Known Allergies Allergy Verified 04/28/24 19:56 [No Known Allergies*] Review of Systems Review of Systems: Yes all other systems are reviewed and are negative [facility] Past Medical History Medical History TIA (transient ischemic attack) CVA (cerebral vascular accident) Hypertension FH: breast cancer in first degree relative Abnormal Pap smear of cervix Ovarian cyst Depression HTN (hypertension) Surgical History H/O prior ablation treatment Hx of tubal ligation History of removal of ovarian cyst Family History Family History Paternal Aunt Breast cancer Sister Breast cancer, Onset Age: 46 Social History Social History Household Members: Children Housing: Apartment Do you presently have visiting nurse or other home services: No Alcohol intake: never Comment: Pt refuses alarms-ambulating independently Patient Tobacco Use Status: Never used Tobacco Smoked in Last 30 Days: No e-Cigarette/Vaping Use: Never Used Use of substances other than those prescribed or required for medical reasons: No Advance Directives: Yes Advance Directives on File: Yes Advance Directives Date on File: 05/09/21 Do you have a plan to hurt others: No Plan service: No Current occupational status: disabled Gender identity: Female Physical Exam Vital Signs: Vital Signs: Last Vital Signs Temp 97.4 F 04/29/24 00:10 Pulse 64 04/29/24 00:10 Resp 20 04/29/24 00:10 BP 183/85 H 04/29/24 00:10 Pulse Ox 96 04/29/24 00:10 O2 Del Method Room Air 04/29/24 00:00 BMI result Body Mass Index 35.6 Appearance: Alert. Oriented X3. No acute distress. Eyes: PERRLA, No Nystagmus light sensitive ENT: Pharynx normal. Oral Mucosa moist no sinus tenderness Neck: Normal inspection. Neck supple. CVS: Normal heart rate and rhythm. Pulses normal. Respiratory: No respiratory distress. Equal air entry bilateral, no wheezing/rales/rhonchi Abdomen: Soft and nontender. Bowel sounds are present, no mass palpable, no CVA tenderness Skin: Skin warm and dry. Normal skin color. Normal skin turgor. Extremities: No lower extremity edema. No calf tenderness Neuro: Oriented X 3. No motor deficit. No sensory deficit.No cerebellar signs , cranial nerves II-XII intact Medications Administered Discontinued Medications Generic Name Dose Route Start Last Admin Trade Name Tobiq PRN Reason Stop Dose Admin Acetaminophen/Butalbital/Caffeine 1 tab 04/28/24 23:43 04/28/24 23:55 Butalb/Acetamin/Caff 50/325/40 Tablet PO 04/28/24 23:44 1 tab ONCE ONE Administration Dexamethasone 10 mg 04/28/24 23:49 04/28/24 23:55 Dexamethasone 2 Mg Tablet PO 04/28/24 23:50 10 mg ONCE ONE Administration Morphine Sulfate 4 mg 04/28/24 20:47 04/28/24 21:29 Morphine Sulfate 4 Mg/Ml Cartridge IVPUSH 04/28/24 20:48 4 mg ONCE ONE Administration Protocol Ondansetron HCl 4 mg 04/28/24 20:47 04/28/24 21:29 Ondansetron Hcl 4 Mg/2 Ml Vial IVPUSH 04/28/24 20:48 4 mg ONCE ONE Administration Medical Decision Making Medical Decision Making [facility] Narrative: Patient's slightly elevated blood pressure with no focal findings comes here with frontal headache likely migraine CT scan head negative for acute chest x-ray and rib x-ray negative for rib fracture or pneumonia Differential Diagnosis Differential Diagnoses: The differential diagnosis associated with the presentation includes Lab Data [facility] Lab Attestation statement: I reviewed the patient's lab results. 04/28/24 20:08 04/28/24 20:08 Labs: Lab Results 04/28/24 04/28/24 Range/Units 20:08 21:33 WBC 8.1 (4.8-10.8) X10*3/uL RBC 4.96 (4.20-5.50) X10*6/uL Hgb 13.3 (12.0-16.0) g/dl Hct 40.2 (37.0-47.0) % MCV 81.0 (80.0-98.0) fL MCH 26.8 L (27.0-33.0) pg MCHC 33.1 (31.0-35.0) g/dl RDW 13.9 (11.0-16.0) % Plt Count 277 (160-400) X10*3/uL MPV 10.0 (9.4-12.3) fL Immature Gran % (Auto) 0.5 H (0.0-0.4) % Neut % (Auto) 77.0 H (45-73) % Lymph % (Auto) 15.0 L (20-40) % [place] % (Auto) 5.3 (2-11) % Eos % (Auto) 1.7 (0-4) % Baso % (Auto) 0.5 (0-2) % Lymph # (Auto) 1.2 (1.2-4.9) X10*3/uL [place] # (Auto) 0.4 (0.1-1.2) X10*3/uL Eos # (Auto) 0.1 (0.0-0.4) X10*3/uL Baso # (Auto) 0.0 (0.0-0.2) X10*3/uL Abs Immat Gran (auto) 0.04 H (0.00-0.03) X10*3/uL Absolute Neuts (auto) 6.2 (2.0-8.3) x10*3/uL Absolute Nucleated RBC 0.000 (0.0-0.012) X10*3/uL Nucleated RBC % (auto) 0.0 (0.0-0.2) /100WBC Hold Blue Top SEE NOTE Sodium 141 (135-145) mmol/L Potassium 4.1 (3.3-5.1) mmol/L Chloride 103 (96-108) mmol/L Carbon Dioxide 27 (22-29) mmol/L Anion Gap 15 (12-20) BUN 15 (9-16) mg/dL Creatinine 0.98 (0.5-1.4) mg/dL Estim Creat Clear Calc 76.5 Estimated GFR 59 Random Glucose 135 H (60-115) mg/dL Calcium 9.7 (8.4-10.2) mg/dL Magnesium 2.0 (1.6-2.6) mg/dL Total Bilirubin 0.2 (0.0-1.0) mg/dL AST 34 H (5-31) U/L ALT 61 H (0-31) U/L Alkaline Phosphatase 92 (39-117) U/L Troponin I High Sens 13.8 D (<3.5-17.0) ng/L Total Protein 7.9 (6.5-8.0) g/dL Albumin 4.5 (3.5-5.0) g/dL Influenza Type A (PCR) NEGATIVE (Negative) Influenza Type B (PCR) NEGATIVE (Negative) RSV RNA Qual (PCR) NEGATIVE (Negative) SARS-CoV-2 RNA (RT-PCR) NEGATIVE (Negative) Independent Interpretation I performed an independent interpretation of an: Plain X-Ray and CT Scan Radiology Impression Discussion of test interpretation with radiology: I have reviewed the radiologist's reading. Discharge Plan Discharge Clinical Impression: Migraine, Rib pain on right side Patient Disposition: Home, Self-Care Instructions: Migraine Headache (ED), Rib Contusion (ED) Additional Instructions: Your headache is likely from migraine CT scan negative for acute Take medication as prescribed for headache and follow up with your PCP Tramadol for rib pain Continue to use your albuterol inhaler and start taking prednisone Prescriptions: New llzimcegnu-hkargdjanrhwu-bwyu 50-325-40 mg tablet 1 tab PO Q6H PRN (Reason: haeadace) Qty: 20 0RF tramadol 50 mg tablet 50 mg PO Q6H PRN (Reason: pain) Qty: 20 0RF prednisone 20 mg tablet 40 mg PO DAILY Qty: 10 0RF No Action diclofenac sodium 1 % gel 4 g topical QID Qty: 100 3RF atorvastatin 80 mg tablet 80 mg PO BEDTIME hydroxyzine HCl 50 mg tablet 50 mg PO BEDTIME diclofenac sodium 75 mg tablet,delayed release (DR/EC) 75 mg PO BID doxazosin 4 mg tablet 4 mg PO BEDTIME amlodipine 10 mg tablet 10 mg PO DAILY gabapentin 300 mg capsule 300 mg PO BID 30 Days Qty: 60 1RF albuterol sulfate [Ventolin HFA] 90 mcg/actuation HFA aerosol inhaler inhalation lisinopril-hydrochlorothiazide 20-25 mg tablet PO sertraline 100 mg tablet 100 mg PO DAILY carvedilol 25 mg tablet 25 mg PO BID trazodone 300 mg tablet 300 mg PO BEDTIME bisacodyl [Dulcolax (bisacodyl)] 5 mg tablet,delayed release (DR/EC) 10 mg PO BEDTIME Qty: 14 0RF Rx Instructions: Start taking 2 tablet every night 6 days before the procedure and 1 day before procedure take 2 tablets at noon time followed by MiraLax prep magnesium citrate Solution 296 ml PO ONCE Qty: 296 1RF Rx Instructions: Drink one bottle at 17:00 and 2nd bottle at 22:00 aspirin 81 mg tablet,delayed release (DR/EC) 81 mg PO DAILY rosuvastatin 40 mg tablet 40 mg PO BEDTIME furosemide 20 mg tablet 20 mg PO DAILY Qty: 30 3RF Interventions: ED Discharge Assessment Last Done: 04/29/24 00:10 Discharge Date/Time: 04/29/24 00:11 Print Language: Burkinan
[2024-04-28] MEDS: ondansetron HCL 4 MG/2 ML VIAL IVPUSH (21:29)
[2024-04-28] MEDS: Morphine Sulfate 4 MG/ML CARTRIDGE IVPUSH (21:29)
[2024-04-28 22:14] LABS: Influenza A PCR NEGATIVE (Negative); Influenza B PCR NEGATIVE (Negative); Resp Syncy Virus RNA Qual PCR NEGATIVE (Negative); SARS COV2 PCR INHOUSE NEGATIVE (Negative)
[2024-04-28] MEDS: dexAMETHasone 2 MG TABLET 10 MG PO (23:55)
[2024-04-28] MEDS: Butalb/Acetamin/Caff 50/325/40 TABLET 1 TAB PO (23:55)
[2024-04-29] VITALS: BP 183/85; PULSE 64; RESP 20; TEMP -12.6; TEMP 9.4; O2SAT 96
--- NOTE | 2024-04-29 00:01 | PC.NURSE ---
Took over care from Mary Kay Shafer, medicated per Sep, removed Iv, Reviewed discharge instructions wit pt . pt verbalized under standing
[2024-04-29 00:10] VITALS: BP 183/85; PULSE 64; RESP 20; TEMP 36.3; O2SAT 96
== END 2024-04-29 00:11 | disposition home or self-care (01) ==
PROVIDERS: Emergency Provider Internal Medicine; PCP Internal Medicine
DX: G43.909 Migraine, unspecified, not intractable, without status migrainosus (principal); R07.81 Pleurodynia; R05.9 Cough, unspecified; I10 Essential (primary) hypertension; Z03.818 Encounter for observation for suspected exposure to other biological agents ruled out
CPT/HCPCS: 0241U; 36415; 70450; 71101; 80053; 83735; 84484; 85025; 93005; 96374; 96375; 99284; 99285; J2270; J2405; J8540

== ENCOUNTER → 2024-04-28 19:57 | Outpatient (BNV) | payer MEDICARE, MEDICAID, SELFPAY | PROVIDERS: Emergency Provider Internal Medicine; PCP Internal Medicine; Visit Provider Internal Medicine Cardiovascular Disease | DX: I10 Essential (primary) hypertension (principal) | CPT/HCPCS: 93010 ==

== ENCOUNTER 2024-08-09 11:09 | Outpatient (REF) | payer MEDICARE, MEDICAID, SELFPAY ==
[2024-08-09 12:04] LABS: Anion Gap 14 (12-20); Blood Urea Nitrogen 15 mg/dL (9-16); Calcium 9.7 mg/dL (8.4-10.2); Carbon Dioxide 25 mmol/L (22-29); Chloride 105 mmol/L (96-108); Estimated Glomerular Filt Rate > 60; Glucose Random 169 mg/dL (60-115); Potassium 4.1 mmol/L (3.3-5.1); Sodium 140 mmol/L (135-145)
[2024-08-09 12:31] LABS: Appearance Urine Turbid; Color Urine Yellow; Glucose Urine UA Negative (Negative); Leukocyte Esterase Urine Trace (Negative); Nitrite Urine Negative (Negative); PH 5.5 (5.0-9.0); Specific Gravity - Urine >= 1.030 (1.005-1.025); UMIC TRIGGER UA YES; Urine Blood Negative (Negative); Urine Ketones Trace mg/dL (Negative); Urine Protein 30 (1+) mg/dL (Neg-Trace)
[2024-08-09 12:43] LABS: Bacteria Urine 4+ (None Seen); Calcium Oxalate Crystals Urine Present; WBC Urine 21-50 /HPF (0-5)
[2024-08-09 13:05] LABS: Creatinine Urine 350.58 mg/dL; Total Protein Urine Random 25 mg/dL (<12)
== END 2024-08-09 11:10 | disposition home or self-care (01) ==
LOC: HO.LAB 11:09
PROVIDERS: PCP Internal Medicine; Visit Provider Internal Medicine Hypertension Specialist
DX: I10 Essential (primary) hypertension (principal)
CPT/HCPCS: 36415; 80048; 81001; 82570; 84156

== ENCOUNTER 2024-08-10 14:43 | Outpatient (AMB) | payer MEDICARE, MEDICAID, SELFPAY ==
[2024-08-10 14:44] VITALS: BP 184/98; PULSE 72; O2SAT 98; BMI 34.8
--- NOTE | 2024-08-10 14:44 | HO.NEPHOV ---
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 Required: Yes Agricultural Plow Operator Name: Kevin [phone] Accompanied by: Self / Same As Patient Allergies No Known Allergies [No Known Allergies*] Allergy (Verified 08/10/24 14:46) Medication List - Last Reconciled 08/10/24 by Kali Franco MD albuterol sulfate 90 mcg/actuation (Ventolin HFA) inhalation amlodipine 10 mg PO DAILY aspirin 81 mg PO DAILY atorvastatin 80 mg PO BEDTIME bisacodyl (Dulcolax (bisacodyl)) 10 mg (2 x 5 mg) PO BEDTIME iavoexwrho-jewrgjbgvrqez-sreb 50-325-40 mg 1 tab PO Q6H PRN carvedilol 25 mg PO BID diclofenac sodium 75 mg PO BID diclofenac sodium 1% 4 grams topical QID doxazosin 4 mg PO BEDTIME furosemide 20 mg PO DAILY gabapentin 300 mg PO BID 30 days hydroxyzine HCl 50 mg PO BEDTIME lisinopril-hydrochlorothiazide 20-25 mg tabs PO magnesium citrate 296 mL PO ONCE prednisone 40 mg (2 x 20 mg) PO DAILY rosuvastatin 40 mg PO BEDTIME sertraline 100 mg PO DAILY tramadol 50 mg PO Q6H PRN trazodone 300 mg PO BEDTIME HPI Comments Details: 53 yr old woman with resistnant HTN Here for follow up Seems complaint with meds now NO change in weight PFSH Medical History (Updated 08/24/24 @ 07:34 by Betsy Ponce MD) TIA (transient ischemic attack) CVA (cerebral vascular accident) Hypertension FH: breast cancer in first degree relative Abnormal Pap smear of cervix Ovarian cyst Depression Surgical History H/O prior ablation treatment Hx of tubal ligation History of removal of ovarian cyst Family History Paternal Aunt Breast cancer Sister Breast cancer, Onset Age: 46 Social History Household Members: Children Housing: Apartment Do you presently have visiting nurse or other home services: No Alcohol intake: never Comment: Pt refuses alarms-ambulating independently Patient Tobacco Use Status: Never used Tobacco e-Cigarette/Vaping Use: Never Used Advance Directives Date on File: 05/09/21 service: No Current occupational status: disabled Gender identity: Female Physical Exam Vital Signs: Last Vital Signs Pulse 72 08/10/24 14:44 BP 184/98 H 08/10/24 14:44 Pulse Ox 98 08/10/24 14:44 Oxygen Delivery Method Room Air 08/10/24 14:44 BMI result Body Mass Index 34.8 Results Reviewed Nephrology Results: Hgb 13.3 g/dl (12.0-16.0) 04/28/24 WBC 8.1 X10*3/uL (4.8-10.8) 04/28/24 Plt Count 277 X10*3/uL (160-400) 04/28/24 Sodium 140 mmol/L (135-145) 08/09/24 Potassium 4.1 mmol/L (3.3-5.1) 08/09/24 Chloride 105 mmol/L (96-108) 08/09/24 Carbon Dioxide 25 mmol/L (22-29) 08/09/24 BUN 15 mg/dL (9-16) 08/09/24 Creatinine 0.94 mg/dL (0.5-1.4) 08/09/24 Calcium 9.7 mg/dL (8.4-10.2) 08/09/24 Urine Protein 30 (1+) mg/dL (Neg-Trace) H 08/09/24 Urine Creatinine 350.58 mg/dL 08/09/24 Assessment & Plan Assessment & Plan (1) Hypertension: Code(s): I10 - Essential (primary) hypertension Category: Medical Plan: BP is suboptimal Compliance seems to be the main issue. Asked her to bring all her medications Needs weight loss Low salt diet (2) Obesity: Code(s): E66.9 - Obesity, unspecified Category: Medical Plan: Seen by weight loss clinic work up in progress Medications: New amlodipine 10 mg PO DAILY 30 tabs 0RF Discontinued tramadol Discontinued Reason: Patient no longer taking 50 mg PO Q6H PRN 20 tabs 0RF pain prednisone Discontinued Reason: Patient no longer taking 40 mg (2 x 20 mg) PO DAILY 10 tabs 0RF magnesium citrate Drink one bottle at 17:00 and 2nd bottle at 22:00 Discontinued Reason: Patient no longer taking 296 mL PO ONCE 296 mL 1RF constipation Z12.11 - Encounter for screening for malignant neoplasm of colon diclofenac sodium 1% Discontinued Reason: Patient no longer taking 4 grams topical QID 100 grams 3RF for pain M25.561 - Pain in right knee, M25.562 - Pain in left knee bisacodyl Start taking 2 tablet every night 6 days before the procedure and 1 day before procedure take 2 tablets at noon time followed by MiraLax prep Discontinued Reason: Patient no longer taking 10 mg (2 x 5 mg) PO BEDTIME 14 tabs 0RF Z12.11 - Encounter for screening for malignant neoplasm of colon Coding Level of Care Code Est Pt Level 4 (01825) Diagnoses Hypertension I10 Obesity E66.9
--- OUTSIDE RECORDS SUMMARY | 2024-08-10 16:49 | XMS_ITS | Clinical Summary ---
Author Organization [facility] Address [address] [place] [address] Phone Care Team Providers Care Manager New Product Name Role Phone Ani Bright MD Primary Care Provider [phone] Allergies No known active allergies Medications amLODIPine (NORVASC) 10 MG tablet Comments: Filled Date: May 13 2019 4:16PM Patient Notes: TAKE ONE TABLET BY MOUTH EVERY DAY Duration: 30 9 Active lisinopril-hydr oCHLOROthiazide (PRINZIDE,ZESTO RETIC) 20-25 MG per tablet Take 1 tablet by mouth 2 (two) times a day Active Aspirin Low Dose 81 MG EC tablet 1 Active atorvastatin (LIPITOR) 40 MG tablet 1 Active doxazosin (CARDURA) 4 MG tablet 1 Active hydrOXYzine (ATARAX) 50 MG tablet 1 Active traZODone (DESYREL) 150 MG tablet 1 Active gabapentin (NEURONTIN) 100 MG capsule Take 100 mg by mouth at bed time 2 Active furosemide (LASIX) 20 MG tablet Take 20 mg by mouth 1 (one) time each day 2 Active diclofenac (VOLTAREN) 75 MG EC tablet Take 75 mg by mouth in the morning and 75 mg in the evening. 2 Active ibuprofen (ADVIL,MOTRIN) 800 MG tablet TOME KATYA TABLETA POR V A ORAL CADA OCHO HORAS CUANDO SEA NECESARIO PARA EL DOLOR 2 Active Active Problems Problem Noted Date Diagnosed Date Benign essential hypertension 04/04/2021 Social History Tobacco Use Types Packs/Day Years Used Date Smoking Tobacco: Never Smokeless Tobacco: Never Tobacco Cessation:Counseling Given: Not Answered Alcohol Use Standard Drinks/Week Comments No 0 (1 standard drink = 0.6 oz pur e alcohol) Comments Unknown Sex and Gender Information Value Date Recorded Sex Assigned at Not on file Legal Sex Female 5:09 PM EST Gender Identity Not on file Sexual Orientation Not on file Last Filed Vital Signs Vital Sign Reading Time Taken Comments Blood Pressure 124/80 12/05/2022 1:28 PM EDT Pulse 58 12/05/2022 1:28 PM EDT Temperature - - Respiratory Rate - - Oxygen Saturation 58% 12/05/2022 1:28 PM EDT Inhaled Oxygen Concentration - - Weight 90.3 kg (199 lb) 12/05/2022 1:28 PM EDT Height 167.6 cm (5' 6 ) 12/05/2022 1:28 PM EDT Body Mass Index 32.12 12/05/2022 1:28 PM EDT Plan of Treatment Health Maintenance Due Date Last Done Comments Breast Cancer Screening 1970 Pneumococcal Vaccine: Pediat rics (0 to 5 Years) and At-Risk Patients (6 to 64 Years) (1 of 2 - PCV) 1976 Hepatitis B Vaccine (1 of 3 - 19+ 3-dose series) 12/20 Colorectal Cancer Screening: Annual FOBT 12/21/2019 Colorectal Cancer Screening: Colonoscopy 12/21/2019 Colorectal Cancer Screening: Sigmoidoscopy 12/21/2019 Influenza Vaccine (#1) 2024 Insurance MEDICAID [place]ICAID [place] Care Teams Manager New Product Relationship Specialty Start Date End Date Ani Bright MD [address] [facility] [address] [place], [place] PCP - General Internal Medicine 02/28/21
--- OUTSIDE RECORDS SUMMARY | 2024-08-10 16:49 | XMS_ITS | Clinical Summary ---
Author Organization [facility] it Address [address] [place] [address] Care Team Providers Care Auto Transmission Mechanic Name Role Phone Unavailable Primary Care Provider Unavailabl e Social History Tobacco Use Types Packs/Day Years Used Date Smoking Tobacco: Never Assessed Sex and Gender Information Value Date Recorded Sex Assigned at Not on file Gender Identity Not on file Sexual Orientation Not on file Plan of Treatment Health Maintenance Due Date Last Done Comments Breast Cancer Screening 1970 DTaP,Tdap,and Td Vaccines (1 - Tdap) 1989 Hepatitis B Vaccines (1 of 3 - 19+ 3-dose series) 1989 Cervical Cancer Screening: P ap Smear 12/21/1991 Zoster Vaccines (1 of 2) 2020 COVID-19 Vaccine ( - 2023-2 5 season) 2024 Influenza Vaccine (#1) 2024 HIB Vaccines Aged Out No longer eligi ble based on patient's age to complete this topic HPV Vaccines Aged Out No longer eligi ble based on patient's age to complete this topic Hepatitis A Vaccines Aged Out No long er eligible based on patient's age to complete this topic IPV Vaccines Aged Out No longer eligi ble based on patient's age to complete this topic MMR Vaccines Aged Out No longer eligi ble based on patient's age to complete this topic Meningococcal ACWY Vaccine Aged Out N o longer eligible based on patient's age to complete this topic Pneumococcal Vaccine: Pediat rics (0 to 5 Years) and At-Risk Patients (6 to 64 Years) Aged Out No longer eligible b ased on patient's age to complete this topic RSV Immunization Patients Un santi 20 months Aged Out No longer eligible b ased on patient's age to complete this topic Varicella Vaccines Aged Out No longer eligible based on patient's age to complete this topic
--- OUTSIDE RECORDS SUMMARY | 2024-08-10 16:49 | XMS_ITS | Clinical Summary ---
Author Organization [facility] Address [address] [place] [address] Care Team Providers Care Battery Recharger Name Role Phone Unavailable Primary Care Provider Unavailabl e Immunizations Name Administration Dates Next Due Influenza Injectable Quadriv alant Preservative Free IIV4 MDCK 08/29/2021 Influenza injectable quadrivalent preservative f ree 05/27/2022 Moderna Covid-19 Vaccine 12+ 01/29/2021 Pfizer Covid-19 Vaccine 12+ 09/04/2023 Pfizer Covid-19 Vaccine 12+ Bivalent 07/19/2022 Pneumococcal Conjugate PCV 20 08/12/2022 Zoster, Recombinant 08/12/2022 Social History Tobacco Use Types Packs/Day Years Used Date Smoking Tobacco: Never Assessed Comments Unknown Sex and Gender Information Value Date Recorded Sex Assigned at Female 05/20/2022 10:38 AM EDT Legal Sex Female 10:38 AM EDT Gender Identity Female 05/20/2022 10:38 AM EDT Sexual Orientation Straight 05/20/2022 10 :38 AM EDT Plan of Treatment Health Maintenance Due Date Last Done Comments CT Colonography 1970 Colonoscopy 1970 Colorectal Cancer Screening 1970 Depression Screening 1970 FIT DNA/Cologuard 1970 FIT 1970 FOBT 1970 HIV Screening 1970 Lipid Panel 1970 SDOH Screening 1970 Sigmoidoscopy 1970 Alcohol/Substance Use Screening 1982 Tobacco Screening 1982 Hepatitis C Screening 1988 DTaP/Tdap/Td Vaccines (1 - Tdap) 1989 Hepatitis B Vaccines (1 of 3 - 19+ 3-dose series) 1989 Pap Smear 12/21/1991 Cervical Cancer Screening 2000 HPV/Cotest 2000 Mammogram 2010 Zoster Vaccines (2 of 2) 10/07/2022 08/12/2022 COVID-19 Vaccine ( season) 2024 09/04/2023, 07/19/2022, 07/04/2021, Additional history exists Influenza Vaccine (#1) 2024 05/27/2022, 2021 RSV Patients and Patients Aged 60 years or older (1 - 1-dose 75+ series) 2045 Pneumococcal Vaccine: Pediatrics (0 to 5 Years) and At-Risk Patients (6 to 64 Years) Aged Out 08/12/2022 No longer eligible based on patient's age to complete this topic HIB Vaccines Aged Out No longer eligi [...] patient's age to complete this topic Meningococcal Vaccine Aged Out No jareth nadine eligible based on patient's age to complete this topic RSV under 20 months Aged Out No longe r eligible based on patient's age to complete this topic Rotavirus Vaccines Aged Out No longer eligible based on patient's age to complete this topic Insurance [facility] STANDARD
== END 2024-08-10 15:00 | disposition home or self-care (01) ==
PROVIDERS: PCP Internal Medicine; Visit Provider Internal Medicine Hypertension Specialist
DX: I10 Essential (primary) hypertension (principal); E66.9 Obesity, unspecified; Z68.34 Body mass index [BMI] 34.0-34.9, adult
CPT/HCPCS: 99214

== ENCOUNTER → 2024-08-10 14:43 | Outpatient (BNVA) | payer MEDICARE, MEDICAID, SELFPAY | PROVIDERS: PCP Internal Medicine; Visit Provider Internal Medicine Hypertension Specialist | DX: I1A.0 Resistant hypertension (principal); E66.9 Obesity, unspecified; Z68.34 Body mass index [BMI] 34.0-34.9, adult | CPT/HCPCS: 99212 ==

== ENCOUNTER 2024-08-24 06:31 | Day surgery (SDC) | payer MEDICARE, MEDICAID, SELFPAY ==
[2024-08-20 13:10] VITALS: BMI 33.2
--- NOTE | 2024-08-23 12:30 | HO.ANESPROP2 ---
Documented by User: Freda Harris NP 08/23/24 12:35 HPI - Anesthesia Eval Consult details Narrative: 53yo F for Colonoscopy Follows [facility] [place] [place] Cardiology and [facility] [place] [place] renal for resistant HTN. Hx CVA PMFSH Active Problems Active Problems: All Active Problems Well woman exam (Acute) Uncontrolled hypertension (Acute) Obesity (Acute) Hypertension (Acute) Left hip pain (Acute) Avascular necrosis of left femoral head (Acute) Left knee pain (Acute) Internal derangement of left knee (Acute) S/P right knee arthroscopy (Acute) Hospital discharge follow-up (Acute) Preop cardiovascular exam (Acute) HTN (hypertension) (Acute) CVA (cerebral vascular accident) (Acute) Effusion, right knee (Acute) Tear of medial meniscus of right knee (Acute) Patellofemoral arthritis of right knee (Acute) Effusion, right knee (Acute) Osteoarthritis of right knee (Acute) Occipital stroke (Acute) Encounter for annual routine gynecological examination (Acute) FH: breast cancer (Acute) Elevated blood pressure reading (Acute) Potential exposure to STD (Acute) Sebaceous cyst of labia (Acute) Vulvar cyst (Acute) FH: breast cancer in first degree relative (Acute) Past Medical History Medical History (Updated 08/24/24 @ 07:34 by Betsy Ponce MD) TIA (transient ischemic attack) CVA (cerebral vascular accident) Hypertension FH: breast cancer in first degree relative Abnormal Pap smear of cervix Ovarian cyst Depression Family History Family History Paternal Aunt Breast cancer Sister Breast cancer, Onset Age: 46 Family history of problems with anesthesia: No Surgical History Surgical History H/O prior ablation treatment Hx of tubal ligation History of removal of ovarian cyst History of Problems with Anesthesia: No Social History Social History Household Members: Children Housing: Apartment Do you presently have visiting nurse or other home services: No Alcohol intake: never Comment: Pt refuses alarms-ambulating independently Patient Tobacco Use Status: Never used Tobacco e-Cigarette/Vaping Use: Never Used Advance Directives: No Advance Directives Information Provided: Yes Advance Directives Date on File: 05/09/21 service: No Current occupational status: disabled Gender identity: Female Meds Allergies Allergy/AdvReac Type Severity Reaction Status Date / Time No Known Allergies Allergy Verified 08/10/24 14:46 [No Known Allergies*] Home Medications ?Medication ?Instructions ?Recorded ?Confirmed ?Last Taken ?Type doxazosin 4 mg tablet 4 mg PO BEDTIME 05/27/22 08/10/24 10/28/22 History hydroxyzine HCl 50 mg tablet 50 mg PO BEDTIME 10/29/22 08/10/24 10/28/22 History aspirin 81 mg tablet,delayed 81 mg PO DAILY 12/10/22 08/10/24 12/25/22 History release albuterol sulfate 90 mcg/actuation inhalation 04/16/24 08/10/24 Unknown History aerosol inhaler (Ventolin HFA) carvedilol 25 mg tablet 25 mg PO BID 04/16/24 08/10/24 Unknown History lisinopril 20 tab PO 04/16/24 08/10/24 Unknown History mg-hydrochlorothiazide 25 mg tablet trazodone 150 mg tablet 300 mg PO BEDTIME PRN 08/13/24 Unknown History Exam Height,Weight and Vital Signs: Height 5 ft 6 in Weight 93.44 kg Pertinent Lab Results Pertinent Lab Results: Laboratory Tests 04/28/24 08/09/24 20:08 11:17 WBC 8.1 Hgb 13.3 Hct 40.2 Plt Count 277 Sodium 140 Potassium 4.1 Chloride 105 Carbon Dioxide 25 BUN 15 Creatinine 0.94 Narrative Narrative: EKG 04/2024 Vent. Rate : 077 BPM Atrial Rate : 077 BPM P-R Int : 178 ms QRS Dur : 076 ms QT Int : 404 ms P-R-T Axes : 067 002 046 degrees QTc Int : 457 ms Normal sinus rhythm Normal ECG When compared with ECG of 14-FEB-2024 20:17, Nonspecific T wave abnormality no longer evident in Anterior leads Assessment and Plan Assessment Anesthesia Assessment: Chart Reviewed Final Anesthetic Review Family History of Problems with Anesthesia: No History of Problems with Anesthesia: No Documented by User: Betsy Ponce MD 08/24/24 08:04 HPI - Anesthesia Eval Consult details Narrative: 53yo F for Colonoscopy Follows [facility] [place] [place] Cardiology and [facility] [place] [place] renal for resistant HTN. Hx CVA. Occipital with some blurring of vision PMFSH Active Problems Active Problems: All Active Problems Well woman exam (Acute) Uncontrolled hypertension (Acute) Obesity (Acute) Left hip pain (Acute) Avascular necrosis of left femoral head (Acute) Left knee pain (Acute) Internal derangement of left knee (Acute) S/P right knee arthroscopy (Acute) Hospital discharge follow-up (Acute) Preop cardiovascular exam (Acute) HTN (hypertension) (Acute) CVA (cerebral vascular accident) (Acute) Effusion, right knee (Acute) Tear of medial meniscus of right knee (Acute) Patellofemoral arthritis of right knee (Acute) Osteoarthritis of right knee (Acute). On gabapentin Occipital stroke (Acute) Encounter for annual routine gynecological examination (Acute) FH: breast cancer (Acute) Elevated blood pressure reading (Acute) Potential exposure to STD (Acute) Sebaceous cyst of labia (Acute) Vulvar cyst (Acute) FH: breast cancer in first degree relative (Acute) Occasional migraines Albuterol prescribed some time ago when patient had a cold. No h/o asthma Denies MADHAVI Past Medical History Medical History (Updated 08/24/24 @ 07:34 by Betsy Ponce MD) TIA (transient ischemic attack) CVA (cerebral vascular accident) Hypertension FH: breast cancer in first degree relative Abnormal Pap smear of cervix Ovarian cyst Depression Family History Family History Paternal Aunt Breast cancer Sister Breast cancer, Onset Age: 46 Family history of problems with anesthesia: No Surgical History Surgical History H/O prior ablation treatment Hx of tubal ligation History of removal of ovarian cyst History of Problems with Anesthesia: No Social History Social History Household Members: Children Housing: Apartment Do you presently have visiting nurse or other home services: No Alcohol intake: never Comment: Pt refuses alarms-ambulating independently Patient Tobacco Use Status: Never used Tobacco e-Cigarette/Vaping Use: Never Used Advance Directives: No Advance Directives Information Provided: Yes Advance Directives Date on File: 05/09/21 service: No Current occupational status: disabled Gender identity: Female Meds Allergies Allergy/AdvReac Type Severity Reaction Status Date / Time No Known Allergies Allergy Verified 08/10/24 14:46 [No Known Allergies*] Home Medications ?Medication ?Instructions ?Recorded ?Confirmed ?Last Taken ?Type doxazosin 4 mg tablet 4 mg PO BEDTIME 05/27/22 08/10/24 10/28/22 History hydroxyzine HCl 50 mg tablet 50 mg PO BEDTIME 10/29/22 08/10/24 10/28/22 History aspirin 81 mg tablet,delayed 81 mg PO DAILY 12/10/22 08/10/24 12/25/22 History release albuterol sulfate 90 mcg/actuation inhalation 04/16/24 08/10/24 Unknown History aerosol inhaler (Ventolin HFA) carvedilol 25 mg tablet 25 mg PO BID 04/16/24 08/10/24 Unknown History lisinopril 20 tab PO 04/16/24 08/10/24 Unknown History mg-hydrochlorothiazide 25 mg tablet trazodone 150 mg tablet 300 mg PO BEDTIME PRN 08/13/24 Unknown History Exam Height,Weight and Vital Signs: Height 5 ft 6 in Weight 93.44 kg Vital Signs Temp Pulse Resp BP Pulse Ox O2 Del Method 08/24/24 07:34 97.7 F 96 16 149/85 H 97 Room Air Airway Mallampati Class: II TM Dist: >3cm Neck ROM: Full Loose/Missing/Broken Teeth: No Heart: RRR Lungs: CTAB Assessment and Plan Assessment Anesthesia Assessment: Anesthesia Plan Discussed and Chart Reviewed Final Anesthetic Review Family History of Problems with Anesthesia: No History of Problems with Anesthesia: No NPO: Yes ASA Class: III Final Preanesthetic Review: No Changes in Pt Med Stat, Meds/Allgs Chart Reviewed, Consent Obtained/Reviewed and Anes Risks/Benef Reviewed Patient Risk: Intermediate Procedure Risk: Low Assessment/Block/Sedation in SS: Assess/Block/Sedation-SS Anesthetic Plan Anesthetic Plan: TIVA Disposition: Standard PACU
--- OUTSIDE RECORDS SUMMARY | 2024-08-24 06:34 | XMS_ITS | Clinical Summary ---
Author Organization [facility] Address [address] [place] [address] Phone Care Team Providers Care Bowl Sander Name Role Phone Ani Bright MD Primary Care Provider Allergies No known active allergies Medications amLODIPine [...] Vaccine (#1) 2024 Insurance [place]ID [place] Care Teams Bowl Sander Relationship Specialty Start Date End Date Ani Bright MD [address] [facility] [address] [place], [place] PCP - General Internal Medicine 02/28/21
--- OUTSIDE RECORDS SUMMARY | 2024-08-24 06:34 | XMS_ITS | Clinical Summary ---
Author Organization [employer] [facility] it Address [address] [place] [address] Care Team Providers Care Molded Goods Controls Operator Name Role Phone Unavailable Primary Care Provider [...]
--- OUTSIDE RECORDS SUMMARY | 2024-08-24 06:34 | XMS_ITS | Clinical Summary ---
Author Organization [employer] Address [address] [facility] [address] [place] [address] Care Team Providers Care Oral Health Therapist Name Role Phone Unavailable Primary Care Provider [...] - 1-dose 75+ series) 2045 Pneumococcal Vaccine: 50+ Years Completed 08/12/2022 Pneumococcal Vaccine: Pediatrics (0 to 5 Years) and At-Risk Patients (6 to 49) Years) Aged Out 08/12/2022 No longer eligible [...] patient's age to complete this topic Insurance [employer] [facility] [facility] STANDARD
[2024-08-24 07:15] VITALS: BMI 33.1
[2024-08-24 07:34] VITALS: BP 149/85; PULSE 96; RESP 16; TEMP 36.5; O2SAT 97
[2024-08-24] MEDS: Lactated Ringers 1,000 ML 100 ML IVCONT (07:43)
--- NOTE | 2024-08-24 08:19 | P.HPSUR_ITS ---
Pre-Procedural Eval Section A - 24 Hr Update-Section A only Date of Service: 08/24/24 Section B - Complete if H&P > 30 days Chief Complaint: Encounter for screening for malignant neoplasm of Relevant Family History (Specify if Yes): No Relevant Social History: None Present Medications: see Short Stay Collaborative assessment Medical History: Significant History (TIA (transient ischemic attack) CVA (cer ebral vascular accident) Hypertension FH: breast cancer in first degree relative Abnormal Pap smear of cervix Ovarian cyst Depression) History of Previous Operations: Relevant previous surgery/procedure and date(s) (H/O prior ablation treatment Hx of tubal ligation History of removal of ovarian cyst) Allergies: Allergies Allergy/AdvReac Type Severity Reaction Status Date / Time No Known Allergies Allergy Verified 08/10/24 14:46 [No Known Allergies*] Review of Systems Sugical H&P ROS: Negative: Constitution, Cardiovascular, Respiratory, Neurological, Psychiatric, Hem-Onc, Allergic/Immunologic, Gastrointestinal, Genitourinary, Musculoskeletal, Integumentary, Endocrine and Eyes/Ears/Nose/Throat Exam Surgical H&P Exam: Normal: HEENT, Normal: Heart, Normal: Lungs, Normal: Extremities, Normal: Abdomen, Normal: Skin and Normal: Neurological Plan Diagnosis/Plan: Unchanged I have reviewed the history and physical and performed a pertinent physical examination on my patient. No changes have occurred unless specified. Time Spent With Patient Time: Total time managing care of this patient today ____ minutes.
--- NOTE | 2024-08-24 08:48 | P.OPN-COLO_ITS ---
Colonoscopy Operative Note Operative Note Date of Service: 08/24/24 Narrative: Operative Information Procedure Description: Colonoscopy Indication: Screening Anesthesia: MAC COLONOSCOPY Instrument: Olympus variable stiffness pediatric scope 190L Colonoscopy Monitoring: Vital signs and clinical assessment, continuous EKG monitoring, Pulse oximetry, Carbon Dioxide monitoring and blood pressure monitoring were done throughout the procedure. Colon withdrawal time was 16 minutes. Procedure: The patient was placed in the left lateral decubitis position and pre-procedure medications were administered. After a digital rectal examination of the ano-rectum, the video colonoscope was inserted into the rectum and advanced through the colon to the cecum/TI. The colonoscope was slowly withdrawn in a retrograde panoramic fashion and the colon mucosa was carefully examined including a retroflexed view of the rectum. Findings and interventions are described below. Procedure Difficulty: easy Findings: Terminal Ileum-normal Cecum: over the appendiceal orifice there was a well circumscribed polypoid lesion measuring about 18 mm, this was gently biopsied, it did not appear to be a prolapsed appendiceal orifice. It could be a lipoma. Ascending Colon: normal Transverse Colon -normal Descending Colon: 10 mm sessile polyp removed with cold snare Sigmoid Colon: 11-12 mm sessile polyp removed with cold snare Rectum: Retroflexion with small internal hemorrhoids seen, grade I, patchy erythema and granularitiy, bx taken Anorectum - normal Intervention: cold snare, cold forceps bx Colon preparation: [place] Bowel Preparation Scale Right colon; 2 Transverse colon: 2 Left colon; 1-2 (0 = Unprepared colon segment with mucosa not seen due to solid stool that cannot be cleared. 1 = Portion of mucosa of the colon segment seen, but other areas of the colon segment not well seen due to staining, residual stool and/or opaque liquid. 2 = Minor amount of residual staining, small fragments of stool and/or opaque liquid, but mucosa of colon segment seen well. 3 = Entire mucosa of colon segment seen well with no residual staining, small fragments of stool or opaque liquid) Impression and Post Procedure Diagnosis: submucosal lesion, appendiceal orifice colon polyps internal hemorrhoids Plan: High fiber diet leaflet Avoid straining at stool, epsom salts and sitz bath, anusol supps or cream Repeat Colonoscopy in 3-6 months due to fair prep on left and x2 polyps removed or earlier if clinically indicated also will get CT scan of the A/P with contrast Above findings were reviewed with the patient and relevant handouts were provided if indicated.
[2024-08-24 08:55] VITALS: BP 122/72; PULSE 95; RESP 20; TEMP 36.2; O2SAT 95
[2024-08-24 09:10] VITALS: BP 139/77; PULSE 87; RESP 20; TEMP 36.2; O2SAT 98
== END 2024-08-24 09:35 | disposition home or self-care (01) ==
PROVIDERS: PCP Internal Medicine; Visit Provider Internal Medicine Gastroenterology
PROC: 0DJD8ZZ Inspection of Lower Intestinal Tract, Via Natural or Artificial Opening Endoscopic (ICD-10-PCS; CPT 45378; principal; 2024-08-24 08:20)
DX: Z12.11 Encounter for screening for malignant neoplasm of colon (principal); Z83.719 Family history of colon polyps, unspecified; D12.4 Benign neoplasm of descending colon; D12.5 Benign neoplasm of sigmoid colon; D21.4 Benign neoplasm of connective and other soft tissue of abdomen; K64.0 First degree hemorrhoids; K62.89 Other specified diseases of anus and rectum; I10 Essential (primary) hypertension; F32.A Depression, unspecified; Z80.3 Family history of malignant neoplasm of breast; Z86.73 Personal history of transient ischemic attack (TIA), and cerebral infarction without residual deficits; Z79.82 Long term (current) use of aspirin; Z79.899 Other long term (current) drug therapy; Z98.51 Tubal ligation status; Z98.890 Other specified postprocedural states
CPT/HCPCS: 45385; 45380; 88305; J2003; J2704

== ENCOUNTER → 2024-08-24 06:31 | Outpatient (BNV) | payer MEDICARE, MEDICAID, SELFPAY | PROVIDERS: PCP Internal Medicine; Visit Provider Internal Medicine Gastroenterology | DX: Z12.11 Encounter for screening for malignant neoplasm of colon (principal); D12.4 Benign neoplasm of descending colon; D12.5 Benign neoplasm of sigmoid colon; K62.1 Rectal polyp; K64.0 First degree hemorrhoids | CPT/HCPCS: 45380; 45385 ==

== ENCOUNTER 2024-09-03 10:42 | Outpatient (REF) | payer MEDICARE, MEDICAID, SELFPAY ==
--- NOTE | ~2024-09-03 | CT_ITS ---
EXAMINATION: CT ABDOMEN PELVIS WITH IV CONTRAST HISTORY: K63.89 - Other specified diseases of intestine. Lesion overlying appendiceal orifice on colonoscopy. COMPARISON: Comparison is made with the prior examination dated 04/27/2024. TECHNIQUE: CT scan of the abdomen and pelvis was performed following administration of 85 mL Omnipaque 350 using standard departmental protocol. Coronal and sagittal reformatted images were generated and reviewed. The patient received oral contrast material. This CT exam was performed with one or more of the following dose reduction techniques: automated exposure control, adjustment of the mA and/or kV according to patient size, use of iterative reconstruction technique. DLP: 442 mGy-cm FINDINGS: LOWER CHEST: The visualized lung bases are clear. There is no pleural effusion. CARDIOVASCULATURE: The heart is normal in size. There is no pericardial effusion. LIVER: The liver is normal in size and contour. No liver mass is identified. The hepatic and portal veins are patent. GALLBLADDER / BILE DUCTS: The gallbladder is unremarkable. There is no intra or extrahepatic biliary ductal dilatation. SPLEEN: The spleen is normal in size. No focal splenic lesion is identified. PANCREAS: The pancreas is unremarkable in appearance. ADRENAL GLANDS: Within normal limits. KIDNEYS/RETROPERITONEUM: No renal calculi are identified. There is no hydronephrosis. No renal masses are identified. LYMPH NODES: No abdominal or pelvic lymphadenopathy. VASCULATURE: The abdominal aorta demonstrates atherosclerotic calcification, but is normal in caliber. MESENTERY/PERITONEUM: No free fluid. No masses. There is no free intraperitoneal gas. STOMACH: The stomach is unremarkable. SMALL BOWEL: The small bowel is normal in caliber. COLON: There is diverticulosis of the sigmoid colon, without evidence of diverticulitis. APPENDIX: The appendix is not definitely identified. URINARY BLADDER/PELVIC ORGANS: The urinary bladder is unremarkable. The uterus is unremarkable. BONES / SOFT TISSUES: There is degenerative disc disease of the lower lumbar spine. CT/CT abdomen pelvis w IV con IMPRESSION: 1. Diverticulosis of the sigmoid colon, without evidence of diverticulitis. 2. The appendix is not identified. On review of multiple prior studies dating back to 2019, the appendix is not identified. Is the patient is status post appendectomy? Electronically signed by: Harpreet Montaño MD 09/03/2024 02:13 PM [facility]
--- OUTSIDE RECORDS SUMMARY | 2024-09-03 11:32 | XMS_ITS | Clinical Summary ---
Author Organization [facility] Address [address] [place] [address] Phone Care Team Providers Care Mounter Automatic Name Role Phone Ani Bright MD Primary [...] Vaccine (#1) 2024 Insurance [place]ID [place] Care Teams Mounter Automatic Relationship Specialty Start Date End Date Ani Bright MD [address] [facility] [address] [place], [place] PCP - General Internal Medicine 02/28/21
--- OUTSIDE RECORDS SUMMARY | 2024-09-03 11:32 | XMS_ITS | Clinical Summary ---
Author Organization [facility] [employer] [facility] ity Address [address] [place] [address] Care Team Providers Care Production Welding Supervisor Name Role Phone Unavailable Primary Care Provider Unavailabl e Social History Tobacco Use Types Packs/Day Years Used Date Smoking Tobacco: Never Assessed Comments Unknown Sex and Gender Information Value Date Recorded Sex Assigned at Not on file Legal Sex Female 11:13 AM EST Gender Identity Not on file Sexual Orientation Not on file Plan of Treatment Health Maintenance Due Date Last Done Comments Breast Cancer Screening 1970 DTaP,Tdap,and Td Vaccines (1 - Tdap) 1989 Hepatitis B Vaccines (1 of 3 - 19+ 3-dose series) 1989 Cervical Cancer Screening: P ap Smear 12/21/1991 Pneumococcal Vaccine: 50+ Ye ars (1 of 1 - PCV) 2020 Zoster Vaccines (1 of 2) 2020 COVID-19 [...] patient's age to complete this topic Meningococcal B Vacine Aged Out No lo nger eligible based on patient's age to complete [...]
--- OUTSIDE RECORDS SUMMARY | 2024-09-03 11:32 | XMS_ITS | Clinical Summary ---
Author Organization [employer] Address [address] [facility] [address] [place] [address] Care Team Providers Care Inspector Of Dredging Name Role Phone Unavailable Primary Care Provider Unavailabl e Immunizations Name Administration Dates Next Due Influenza Injectable Quadriv alant Preservative Free IIV4 MDCK 08/29/2021 Influenza injectable quadrivalent preservative f ree 05/27/2022 Moderna Covid-19 Vaccine 12+ 01/29/2021 Pfizer Covid-19 Vaccine + 09/04/2023 Pfizer Covid-19 Vaccine 12+ Bivalent 07/19/2022 [...] Tobacco Screening 1982 Hepatitis C Screening 1988 Hepatitis B Vaccines (1 of 3 - 19+ 3-dose series) 1989 Pap Smear 12/21/1991 Cervical Cancer Screening 2000 HPV/Cotest 2000 Mammogram 2010 COVID-19 Vaccine ( season) 2024 09/04/2023, 07/19/2022, 07/04/2021, Additional history exists DTaP/Tdap/Td Vaccines (2 - Td or Tdap) 03/20/2034 03/20/2024 RSV Patients and Patients Aged 60 years or older (1 - 1-dose 75+ series) 2045 Pneumococcal Vaccine: 50+ Years Completed 08/12/2022 Influenza Vaccine Completed 04/29/2024, , 08/29/2021 Zoster Vaccines Completed 04/29/2024, 08/12/2022 HIB Vaccines Aged Out No longer eligi [...] patient's age to complete this topic Insurance [facility] STANDARD
[2024-09-03] MEDS: Barium Sulfate Oral (Berry) 450 ML ORAL.SUSP 900 ML PO (13:50)
[2024-09-03] MEDS: iohexoL 350 MG/ML 100 ML INFUS..BTL IV (13:51)
== END 2024-09-03 10:43 | disposition home or self-care (01) ==
LOC: HO.CT 10:42
PROVIDERS: PCP Internal Medicine; Visit Provider Internal Medicine Gastroenterology
DX: K63.89 Other specified diseases of intestine (principal)
CPT/HCPCS: 74177; Q9967

== ENCOUNTER → 2024-09-03 10:43 | Outpatient (BNV) | payer MEDICARE, MEDICAID, SELFPAY | PROVIDERS: PCP Internal Medicine; Visit Provider Radiology Diagnostic Radiology | DX: K63.89 Other specified diseases of intestine (principal); K57.30 Diverticulosis of large intestine without perforation or abscess without bleeding | CPT/HCPCS: 74177 ==

== ENCOUNTER 2024-09-07 14:47 | Outpatient (REF) | payer MEDICARE, MEDICAID, SELFPAY ==
[2024-09-07 15:40] LABS: Appearance Urine Cloudy; Color Urine Yellow; Glucose Urine UA 250 mg/dL (Negative); Leukocyte Esterase Urine Trace (Negative); Nitrite Urine Negative (Negative); PH 5.5 (5.0-9.0); Specific Gravity - Urine >= 1.030 (1.005-1.025); UMIC TRIGGER UA YES; Urine Blood Negative (Negative); Urine Ketones Trace mg/dL (Negative); Urine Protein 30 (1+) mg/dL (Neg-Trace)
[2024-09-07 15:45] LABS: Bacteria Urine 3+ (None Seen); Hyaline Casts Urine 0-2 /LPF (0-2); RBC Urine 0-2 /HPF (0-2); WBC Urine 21-50 /HPF (0-5)
--- OUTSIDE RECORDS SUMMARY | 2024-09-07 15:50 | XMS_ITS | Clinical Summary ---
Author Organization [facility] Address [address] [place] [address] Phone Care Team Providers Care Fagot Heater Helper Name Role Phone Ani Bright MD Primary [...] Vaccine (#1) 2024 Insurance [place]ID [place] Care Teams Fagot Heater Helper Relationship Specialty Start Date End Date Ani Bright MD [address] [facility] [address] [place], [place] PCP - General Internal Medicine 02/28/21
--- OUTSIDE RECORDS SUMMARY | 2024-09-07 15:50 | XMS_ITS | Clinical Summary ---
Author Organization [facility] [employer] [facility] ity Address [address] [place] [address] Care Team Providers Care Head Cook Name Role Phone Unavailable Primary Care Provider [...]
--- OUTSIDE RECORDS SUMMARY | 2024-09-07 15:50 | XMS_ITS | Encounter Summary ---
Author Organization [employer] Address [address] [facility] [address] [place] [address] Care Team Providers Care Decision Support Analyst Name Role Phone Unavailable Primary Care Provider Unavailabl e Encounter Details Date Type Department Care Team (Late st Contact Info) Description 09/02/2024 9:00 AM EST Office Visit [facility] [address] [place] [address] Irene Berger, CHEN [address] [place] [address] Presbyopia (Primary Dx) Social History Tobacco Use Types Packs/Day Years Used Date Smoking Tobacco: Never Assessed Comments Unknown Sex and Gender Information Value Date Recorded Sex Assigned at Female 05/20/2022 10:38 AM EDT Legal Sex Female 10:38 AM EDT Gender Identity Female 05/20/2022 10:38 AM EDT Sexual Orientation Straight 05/20/2022 10 :38 AM EDT documented as of this encounter Progress Notes * Irene Berger OD - 09/02/2024 9:00 AM EST MH glasses were dispensed. documented in this encounter Plan of Treatment Not on file documented as of this encounter Visit Diagnoses Diagnosis Presbyopia- Primary documented in this encounter
--- OUTSIDE RECORDS SUMMARY | 2024-09-07 15:50 | XMS_ITS | Clinical Summary ---
Author Organization [employer] Address [address] [facility] [address] [place] [address] Care Team Providers Care Net Repairer Name Role Phone Unavailable Primary Care Provider Unavailabl e Encounters Date Type Department Care Team Description 09/02/2024 9:00 AM EST Office Visit [facility] [address] [place] [address] Ab, Irene, OD Presbyopia (Primary Dx) from Last 3 Months Immunizations Name Administration Dates Next Due Influenza [...] patient's age to complete this topic Insurance [facility] STANDARD
[2024-09-07 16:01] LABS: Anion Gap 14 (12-20); Blood Urea Nitrogen 17 mg/dL (9-16); Calcium 9.8 mg/dL (8.4-10.2); Carbon Dioxide 29 mmol/L (22-29); Chloride 101 mmol/L (96-108); Estimated Glomerular Filt Rate 57; Glucose Random 240 mg/dL (60-115); Potassium 4.5 mmol/L (3.3-5.1); Sodium 139 mmol/L (135-145)
[2024-09-07 16:09] LABS: Creatinine Urine 317.22 mg/dL; Total Protein Urine Random 23 mg/dL (<12)
== END 2024-09-07 14:48 | disposition home or self-care (01) ==
LOC: HO.LAB 14:47
PROVIDERS: PCP Internal Medicine; Visit Provider Internal Medicine Hypertension Specialist
DX: I10 Essential (primary) hypertension (principal)
CPT/HCPCS: 36415; 80048; 81001; 82570; 84156

== ENCOUNTER 2024-09-09 15:49 | Outpatient (AMB) | payer MEDICARE, MEDICAID, SELFPAY ==
[2024-09-09 15:49] VITALS: BP 156/80; BMI 33.6
--- NOTE | 2024-09-09 15:49 | HO.NEPHOV_ITS ---
Vital Signs 09/09/24 15:49 09/09/24 16:00 09/09/24 16:00 Height 5 ft 6 in Weight 208 lb BMI 33.6 BP 156/80 H 148/80 H 140/80 H Blood Pressure Location Lt brachial Lt brachial Lt brachial Position Sitting Sitting Standing Intake Visit Reasons: 3wk follow-up Collection Technician Required: Yes Collection Technician Name: Sharath [id number] Accompanied by: Self / Same As Patient Allergies No Known Allergies [No Known Allergies*] Allergy (Verified 09/09/24 15:52) Medication List - Last Reconciled 09/09/24 by Kali Franco MD albuterol sulfate 90 mcg/actuation (Ventolin HFA) inhalation amlodipine 10 mg PO DAILY aspirin 81 mg PO DAILY yyfppnwjhx-lqcniulnhktvx-pbsj 50-325-40 mg 1 tab PO Q6H PRN carvedilol 25 mg PO BID doxazosin 4 mg PO BEDTIME gabapentin 300 mg PO BID 30 days hydroxyzine HCl 50 mg PO BEDTIME lisinopril-hydrochlorothiazide 20-25 mg tabs PO spironolactone 25 mg PO DAILY trazodone 300 mg PO BEDTIME PRN HPI Comments Details: 53 yr old woman with resistnant HTN Here for follow up Seems complaint with meds now No change in weight 09/09/24 Recently had an episode of diziness REsolved PFSH Medical History (Updated 08/24/24 @ 07:34 by Betsy Ponce MD) TIA (transient ischemic attack) CVA (cerebral vascular accident) Hypertension FH: breast cancer in first degree relative Abnormal Pap smear of cervix Ovarian cyst Depression Surgical History H/O prior ablation treatment Hx of tubal ligation History of removal of ovarian cyst Family History Paternal Aunt Breast cancer Sister Breast cancer, Onset Age: 46 Social History Household Members: Children Housing: Apartment Do you presently have visiting nurse or other home services: No Alcohol intake: never Comment: Pt refuses alarms-ambulating independently Patient Tobacco Use Status: Never used Tobacco e-Cigarette/Vaping Use: Never Used Advance Directives Date on File: 05/09/21 service: No Current occupational status: disabled Gender identity: Female Physical Exam Vital Signs: Last Vital Signs BP 156/80 H 09/09/24 15:49 BMI result Body Mass Index 33.6 Const General: comfortable; No acute distress Orientation/consciousness: patient oriented x3 Eyes General: appearance normal, both eyes and all related structures Visual Craft: normal visual craft by confrontation Neck Neck: Yes supple and Yes no JVD Resp Effort & Inspection: normal respiratory effort and respiratory effort not decreased Auscultation: rhonchi Cardio Palpation: no palpable S3 and no palpable S4 Heart sounds: no rubs GI Inspection: Yes normal to inspection Palpation (GI): Soft to palpation Percussion: Yes normal to percussion Auscultation: normal bowel sounds General: Yes no CVA tenderness Back/Spine/Pelvis Back: no CVA tenderness Skin General skin exam: no petechiae and no purpura Neuro General: patient oriented x3 and no focal motor deficits Extrem General: No clubbing and No edema Results Reviewed Nephrology Results: Hgb 13.3 g/dl (12.0-16.0) 04/28/24 WBC 8.1 X10*3/uL (4.8-10.8) 04/28/24 Plt Count 277 X10*3/uL (160-400) 04/28/24 Sodium 139 mmol/L (135-145) 09/07/24 Potassium 4.5 mmol/L (3.3-5.1) 09/07/24 Chloride 101 mmol/L (96-108) 09/07/24 Carbon Dioxide 29 mmol/L (22-29) 09/07/24 BUN 17 mg/dL (9-16) H 09/07/24 Creatinine 1.01 mg/dL (0.5-1.4) 09/07/24 Calcium 9.8 mg/dL (8.4-10.2) 09/07/24 Urine Protein 30 (1+) mg/dL (Neg-Trace) H 09/07/24 Urine Creatinine 317.22 mg/dL 09/07/24 Assessment & Plan Assessment & Plan (1) Hypertension: Code(s): I10 - Essential (primary) hypertension Category: Medical Plan: BP is better controlled Compliance seems to be the main issue. Currently taking all her medications Needs weight loss Low salt diet (2) Obesity: Code(s): E66.9 - Obesity, unspecified Category: Medical Plan: Seen by weight loss clinic work up in progress Await follow up Coding Level of Care Code Est Pt Level 4 (24744) Diagnoses Hypertension I10 Obesity E66.9
[2024-09-09 16:00] VITALS: BP 140/80; BP 148/80
--- OUTSIDE RECORDS SUMMARY | 2024-09-09 16:44 | XMS_ITS | Clinical Summary ---
Author Organization [employer] Address [address] [facility] [address] [place] [address] Care Team Providers Care Trans Router Name Role Phone Unavailable Primary Care Provider Unavailabl e Encounters Date Type Department Care Team Description 09/02/2024 9:00 AM EST Office Visit [facility] [address] [place] [address] Ab, Irene, OD Presbyopia (Primary Dx) from [...] patient's age to complete this topic Insurance [facility]
--- OUTSIDE RECORDS SUMMARY | 2024-09-09 16:44 | XMS_ITS | Clinical Summary ---
Author Organization [facility] Address [address] [place] [address] Phone Care Team Providers Care Bridge Crane Operator Name Role Phone Ani Bright MD Primary [...] Vaccine (#1) 2024 Insurance [place]ID [place] Care Teams Bridge Crane Operator Relationship Specialty Start Date End Date Ani Bright MD [address] [facility] [address] [place], [place] PCP - General Internal Medicine 02/28/21
--- OUTSIDE RECORDS SUMMARY | 2024-09-09 16:44 | XMS_ITS | Clinical Summary ---
Author Organization [employer] [facility] it[facility] Address [address] [place] [address] Care Team Providers Care Market Garden Worker Name Role Phone Unavailable Primary Care Provider [...]
--- OUTSIDE RECORDS SUMMARY | 2024-09-09 16:44 | XMS_ITS | Encounter Summary ---
Author Organization [employer] Address [address] [facility] [address] [place] [address] Care Team Providers Care Development Manager Name Role Phone Unavailable Primary Care Provider Unavailabl e Encounter Details Date Type Department Care Team (Late st Contact Info) Description 09/02/2024 9:00 AM EST Office Visit [facility] [address] [place] [address] Irene Berger, CHEN [address] [place] [address] Presbyopia (Primary Dx) Social History Tobacco Use [...]
== END 2024-09-09 16:07 | disposition home or self-care (01) ==
PROVIDERS: PCP Internal Medicine; Visit Provider Internal Medicine Hypertension Specialist
DX: I10 Essential (primary) hypertension (principal); E66.9 Obesity, unspecified
CPT/HCPCS: 99214

== ENCOUNTER → 2024-09-09 15:49 | Outpatient (BNVA) | payer MEDICARE, MEDICAID, SELFPAY | PROVIDERS: PCP Internal Medicine; Visit Provider Internal Medicine Hypertension Specialist | DX: I10 Essential (primary) hypertension (principal); E66.9 Obesity, unspecified; Z68.33 Body mass index [BMI] 33.0-33.9, adult | CPT/HCPCS: 99212 ==

== ENCOUNTER 2024-10-15 11:45 | Inpatient (IN) | payer MEDICARE, MEDICAID, SELFPAY ==
[2024-10-15] VITALS (7 sets, daily range): BP systolic 138–184; BP diastolic 60–86; PULSE 67–78; RESP 16–20; TEMP 36.6–37.2; O2SAT 96–98; BMI 33.9
--- NOTE | ~2024-10-15 | MR_ITS ---
CLINICAL HISTORY: Right sided weakness, ?CVA MR brain without contrast. COMPARISON: CT head dated 10/15/24 at 11:56 EDT FINDINGS: Small focus of diffusion restriction within the left riley radiata extending into the left basal ganglia. There is associated mild increased T2/FLAIR signal within this region. There is mildly increased diffusion restriction with normalization on ADC map within the lateral right frontal lobe with associated increased T2/FLAIR signal in this region. Small amount of gradient blooming present along the right basal ganglia consistent with hemosiderin deposition. Encephalomalacia within the posterior right occipital lobe consistent with remote infarcts. Chronic lacunar infarct present within the thalami bilaterally. No evidence of mass, mass effect or midline shift. No abnormal extra-axial fluid collection. The ventricles are proportional with the degree of mild cerebral volume loss without evidence of hydrocephalus. Basilar cisterns are patent. Patchy hyperintense T2/FLAIR areas within the periventricular white matter and riley radiata compatible with mild white matter small vessel disease. Cerebellar hemispheres and cerebellar vermis are normal. Fourth ventricle is normal. No brainstem abnormality is identified. Intracranial flow voids are patent. The visualized paranasal sinuses and mastoid air-cells are clear. IMPRESSION: 1. Small focus of acute to subacute infarct within the left riley radiata extending into the left basal ganglia. There is associated increased T2/FLAIR signal changes. Additional small subacute infarct within the right frontal lobe also with associated increased T2/FLAIR signal. 2. Chronic right parietal and bilateral basal ganglia infarcts. 3. Mild white-matter small-vessel disease with mild global cerebral volume loss. This document has been electronically signed by: Bernard Sharma MD on 10/15/2024 18:03:31
--- NOTE | ~2024-10-15 | CT_ITS ---
EXAMINATION: CT ANGIOGRAM HEAD AND NECK CLINICAL INFORMATION: Right-sided weakness. COMPARISON: Noncontrast head CT performed earlier same day. CT angiogram head and neck 10/29/2022. TECHNIQUE: CT angiogram head and neck performed by test bolus sequences followed by intravenous bolus administration 70 mL of Omnipaque 350. Helical imaging was performed in the axial plane from the aortic arch to the skull vertex. The data was processed at the applied technologist's workstation for generation of MIP sequences. Angled MIPs and volume rendered reformatted images were also generated at an offline 3D workstation. Stenoses are assessed in accordance with NASCET criteria unless otherwise indicated. This CT examination was performed using dose optimization techniques as appropriate, variously including the following: *Automated exposure control *Adjustment of mA and/or kV according to patient size (this includes techniques or standardized protocols for targeted exams where dose is matched to indication/reason for exam; i.e. extremities or head) *Use of iterative reconstruction technique FINDINGS: NECK CTA: -AORTIC ARCH: Normal in caliber. Mild atheromatous calcification. Three-vessel branching pattern. -GREAT VESSEL ORIGINS: Widely patent. No stenosis. -RIGHT COMMON CAROTID ARTERY: Normal in course and caliber to the level of the bifurcation. -CERVICAL RIGHT INTERNAL CAROTID ARTERY: Calcific and soft atherosclerotic disease of the carotid bulb and proximal internal carotid artery causing an approximate 20% stenosis. Cervical right ICA is normal into the skull base. -LEFT COMMON CAROTID ARTERY: Normal in course and caliber to the level of the bifurcation. -CERVICAL LEFT INTERNAL CAROTID ARTERY: Calcific and soft atherosclerotic disease of the carotid bulb and proximal internal carotid artery causing an approximate 20% stenosis. Cervical left ICA is normal into the skull base. -CERVICAL RIGHT VERTEBRAL ARTERY: Codominant. Normal in course and caliber into the skull base. -CERVICAL LEFT VERTEBRAL ARTERY: Codominant. Normal in course and caliber into the skull base. OTHER, SOFT TISSUES: -No lymphadenopathy or mass. No abnormal fluid collection or soft tissue swelling. -Normal thyroid. -Imaged superior mediastinal structures normal. -Imaged lung apices demonstrate mild hypoventilatory changes/mosaic attenuation, but are otherwise clear. CTA OF THE BRAIN: -INTRACRANIAL INTERNAL CAROTID ARTERIES: Calcific atherosclerotic disease of the intracranial internal carotid arteries without occlusion or flow-limiting stenosis. There are small infundibula at the origin of both posterior communicating arteries. -RIGHT ANTERIOR CEREBRAL ARTERY: Normal A1 segment. Moderate to high grade short segment stenosis measuring approximately 6 mm of the right distal A2 segment (series 8, image 102). Immediately more distally, there is approximately 6 mm short segment moderate to high-grade stenosis of the proximal A3 segment (series 8, image 103). Reconstitution of normal caliber immediately more distally. -LEFT ANTERIOR CEREBRAL ARTERY: Normal A1 segment. Normal arborization of the distal segments. -ANTERIOR COMMUNICATING ARTERY: Normal. -RIGHT MIDDLE CEREBRAL ARTERY: Normal M1 segment of the MCA without focal stenosis or occlusion. There is a moderate stenosis of the origin of the anterior temporal branch (series 6, image 228). Normal arborization of the distal segments. -LEFT MIDDLE CEREBRAL ARTERY: In the distal M1 segment, there is a moderate focal stenosis (series 6, image 233; series 12, image 40). There is normal arborization of the more distal segments. -RIGHT VERTEBRAL ARTERY V4: Normal in course and caliber. Normal PICA branch. -LEFT VERTEBRAL ARTERY V4: Normal in course and caliber. Extradural origin of the PICA branch. -BASILAR ARTERY: Normal without focal stenosis or occlusion. Normal appearance of the proximal superior cerebellar arteries. Normal basilar tip. -RIGHT POSTERIOR CEREBRAL ARTERY: There is redemonstration of a mild to moderate stenosis of the P1/P2 junction. Normal opacification of the distal [employer] segments. -LEFT POSTERIOR CEREBRAL ARTERY: Normal P1 segment. Normal opacification of the distal W[employer] CONS[employer]ANT segments. -POSTERIOR COMMUNICATING ARTERIES: Diminutive bilaterally. Normal opacification of the superior sagittal, straight, transverse, and sigmoid sinuses. No venous thrombosis. No space-occupying hemorrhage or definite evolving infarct. CT/CT angio head neck STROKE IMPRESSION: CTA NECK: 1. Moderate degree of soft and calcific plaque at both carotid bulbs/proximal ICA origins resulting in approximately 20% stenosis bilaterally. 2. No vertebral artery stenosis. Vertebrals are codominant. 3. Aortic arch is normal in caliber and great vessels are widely patent. Three-vessel branching pattern. CTA HEAD: 1. There is a moderate focal stenosis of the left MCA, distal M1 segment. Normal arborization more distally. 2. There is a moderate focal stenosis of the origin of the superior division right MCA, proximal M2 segment. Normal arborization more distally. 3. There is a mild to moderate focal stenosis of the P1/P2 junction of the right posterior cerebral artery. 4. There is a moderate to high-grade short segment stenosis measuring 6 mm of the A3 segment, right anterior cerebral artery. 5. No space-occupying hemorrhage or definite evolving infarct identified. Electronically signed by: Jonathan Grant MD 10/15/2024 12:49 PM EDT RP
--- NOTE | ~2024-10-15 | CT_ITS ---
CLINICAL HISTORY: right hand not able to grasp CT head without contrast Comparison: MRI brain and CT head 10/15/2024 Findings: No intra-axial mass, midline shift, hydrocephalus, or acute hemorrhage. There is subtle hypodensity within the left riley radiata extending into the left basal ganglia. This is slightly more conspicuous when compared to the prior exams. The described small infarct within the right frontal lobe is not well visualized on CT. Again noted are stable old bilateral periventricular and subcortical white matter small-vessel ischemic changes. There is no sinus or mastoid fluid. The orbits are unremarkable. No skull fracture. IMPRESSION: No acute hemorrhage Mild evolution of prior described infarct within the left riley radiata extending into left basal ganglia which is slightly more conspicuous Prior described small infarct within the right frontal lobe is not visualized on CT Old small-vessel ischemic changes again noted This document has been electronically signed by: Harpreet Santana MD on 10/16/2024 04:56:03
--- NOTE | ~2024-10-15 | CT_ITS ---
EXAMINATION: CT HEAD WITHOUT IV CONTRAST STROKE HISTORY: right sided weakness. TECHNIQUE: Unenhanced helical CT of the head was performed per standard departmental protocol. Coronal and sagittal reformats of the head were also evaluated. One or more of the following techniques was used for dose reduction: Automated exposure control, adjustment of the mA and/or kV according to patient size, use of iterative reconstruction technique. DLP: 792 mGy-cm COMPARISON: Comparison is made with the prior examination dated 04/28/2024. FINDINGS: BRAIN: Again seen is encephalomalacia in the right occipital lobe, consistent with an old infarct. There are old lacunar infarcts of the bilateral thalami. There is no mass effect or midline shift. The ventricular system is normal in size and configuration. No intra- or extra-axial fluid collections are identified. SINUSES: The visualized paranasal sinuses are clear. The mastoid air cells and middle ear cavities are well pneumatized. ORBITS: The visualized orbits are unremarkable. BONES/SOFT TISSUES: The extracranial soft tissues are unremarkable. The calvarium is intact. No suspicious lytic or sclerotic lesions. CT/CT head for STROKE IMPRESSION: Chronic right occipital and bilateral thalamic infarcts. No acute intracranial abnormality. Electronically signed by: Harpreet Montaño MD 10/15/2024 12:07 PM EDT
--- NOTE | ~2024-10-15 | CT_ITS ---
CLINICAL HISTORY: recent strok, now with head CT head without contrast. COMPARISON: CT head dated 10/16/24 at 04:37 EDT MR brain dated 10/15/24 at 17:21 EDT FINDINGS: The visualized paranasal sinuses are clear. The mastoid air cells are clear. No calvarial fracture. Atherosclerotic intracranial vasculature. No evidence for mass or mass effect. No intracranial hemorrhage or abnormal extra-axial fluid collection. Stable appearance of hypodensity within the left riley radiata consistent with infarcts seen on prior MR. Chronic right parietal infarct redemonstrated. Chronic lacunar infarct within the left basal ganglia. No CT evidence of acute infarct. Hydrocephalus. Basilar cisterns are patent. There are periventricular areas of low attenuation compatible with mild white matter small vessel disease. Posterior fossa appears unremarkable. IMPRESSION: 1. No acute intracranial findings. Specifically, no evidence of intracranial hemorrhage. 2. Chronic findings as above. This document has been electronically signed by: Bernard Sharma MD on 10/16/2024 15:27:14
--- NOTE | 2024-10-15 11:54 | ED_ITS ---
HPI - General Adult General Chief complaint: Stroke Stated complaint: mini stroke ? Time Seen by Provider: 10/15/24 11:56 Source: patient Mode of arrival: ambulatory Limitations: no limitations History of Present Illness ED Provider: WENDY Butler HPI narrative: 53-year-old female with past medical history significant for hypertension, obesity, previous CVA presents for evaluation of right-sided weakness and dizziness. Patient reports that she went to bed around 10:00 p.m. last night feeling well, that was about 14 hours ago. She woke up at 8:00 a.m. this morning with symptoms of dizziness and right-sided weakness. She reports that she did not get up during the night, so her last known well time was 10:00 p.m. last night. She denies headache, vision change, head trauma, fevers, chills, cp, sob, nausea, vomiting, abd pain. Related Data Home Medications ?Medication ?Instructions ?Recorded ?Confirmed doxazosin 4 mg tablet 4 mg PO BEDTIME 05/27/22 09/09/24 hydroxyzine HCl 50 mg tablet 50 mg PO BEDTIME 10/29/22 09/09/24 aspirin 81 mg tablet,delayed 81 mg PO DAILY 12/10/22 09/09/24 release albuterol sulfate 90 mcg/actuation inhalation 04/16/24 09/09/24 aerosol inhaler (Ventolin HFA) carvedilol 25 mg tablet 25 mg PO BID 04/16/24 09/09/24 lisinopril 20 tab PO 04/16/24 09/09/24 mg-hydrochlorothiazide 25 mg tablet trazodone 150 mg tablet 300 mg PO BEDTIME PRN 08/13/24 09/09/24 Previous Rx's ?Medication ?Instructions ?Recorded gabapentin 300 mg capsule 300 mg PO BID pain 30 days #60 caps 09/18/23 vmfiwvzkpb-tgrmzpdrhpwwi-teviirqw 1 tab PO Q6H PRN haeadace #20 tabs 04/28/24 50 mg-325 mg-40 mg tablet amlodipine 10 mg tablet 10 mg PO DAILY #30 tabs 08/10/24 spironolactone 25 mg tablet 25 mg PO DAILY #90 tabs 08/12/24 Allergies Allergy/AdvReac Type Severity Reaction Status Date / Time No Known Allergies Allergy Verified 10/15/24 11:54 [No Known Allergies*] Review of Systems 2 Review of Systems: Yes all other systems are reviewed and are negative [facility] Past Medical History Attestation statement: The following information was validated with the patient. Source: old records reviewed and nursing notes reviewed Medical History TIA (transient ischemic attack) CVA (cerebral vascular accident) Hypertension FH: breast cancer in first degree relative Abnormal Pap smear of cervix Ovarian cyst Depression Surgical History H/O prior ablation treatment Hx of tubal ligation History of removal of ovarian cyst Family History Family History Paternal Aunt Breast cancer Sister Breast cancer, Onset Age: 46 Social History Social History Household Members: Children Housing: Apartment Do you presently have visiting nurse or other home services: No Alcohol intake: never Comment: Pt refuses alarms-ambulating independently Patient Tobacco Use Status: Never used Tobacco Smoked in Last 30 Days: No e-Cigarette/Vaping Use: Never Used Use of substances other than those prescribed or required for medical reasons: No Advance Directives: Yes Advance Directives on File: Yes Advance Directives Date on File: 05/09/21 Patient : No service: No Current occupational status: disabled Gender identity: Female Physical Exam ED Vital Signs: Vital Signs - 24 hr 10/15/24 11:49 10/15/24 12:23 10/15/24 12:41 Temperature 97.9 F Pulse Rate 75 73 70 Respiratory Rate 18 20 20 Blood Pressure 184/86 H 158/61 H 138/60 Pulse Oximetry 98 98 96 Oxygen Delivery Method Room Air Room Air BMI result Body Mass Index 33.9 vss Appearance: Alert.? Oriented X3.? No acute distress.? Head: Normocephalic, atraumatic, no step-offs or deformities. Symmetric smile Eyes: Pupils equal, round and reactive to light.? Neck: Normal inspection.? Neck supple.? CVS: Normal heart rate and rhythm.? Pulses normal.? Respiratory: No respiratory distress.? Breath sounds normal.? Abdomen: Soft and nontender.? Skin: Skin warm and dry.? Normal skin color.? Normal skin turgor.? Extremities: No lower extremity edema.? No calf ttp. 4/5 strength to right upper and right lower extremity. Left upper and left lower extremity 5/5 strength. Patient with normal nmxbfs-uo-kzlh. Normal xwug-ic-wfyz. She does have a slight pronator drift on the right. Neuro: Oriented X 3.? No motor deficit.? No sensory deficit. CN 2-12 intact Course Course Course Narrative: RME, this is a rapid medical exam performed by [facility] please refer to primary provider for complete H&P- 53-year-old female with past medical history significant for hypertension, obesity, previous CVA presents for evaluation of right-sided weakness and dizziness. Patient reports that she went to bed around 10:00 p.m. last night feeling well, that was about 14 hours ago. She woke up at 8:00 a.m. this morning with symptoms of dizziness and right-sided weakness. She reports that she did not get up during the night, so her last known well time was 10:00 p.m. last night. On exam she does have weakness to the right arm and leg, there is no objective facial droop. Patient was brought back to the ER as a stroke alert, CT scan was notified and orders were placed Reevaluation(s) Reevaluation #1: Dry head CT with chronic right occipital and bilateral fell make infarcts. No acute intracranial abnormality. Call out to neurology Time: 12:17 Reevaluation #2: I did discuss this case with Neurology Dr. Scott. Due to unclear last known well time will hold on TNK. Will give 81 mg of aspirin per neurology request. They would like patient admitted for MRI. Time: 12:28 Medications Administered Discontinued Medications Generic Name Dose Route Start Last Admin Trade Name Tobiq PRN Reason Stop Dose Admin Aspirin 81 mg 10/15/24 12:27 10/15/24 12:43 Aspirin Enteric Coated 81 [address] Table[address] PERDUE 10/15/24 12:28 81 mg ONCE ONE Administration Iohexol 100 ml 10/15/24 12:03 10/15/24 12:04 Iohexol 350 Mg/Ml 100 Ml Infus..Btl IV 10/15/24 12:04 70 ml ONCE ONE Administration Medical Decision Making Medical Decision Making MDM Narrative: 53-year-old female presents with right-sided weakness and heaviness upper and lower extremities last known well time 22:00. On exam afford 5 strength to right upper and lower extremity 5/5 on the left. Normal laebdw-th-msko, powg-mb-prrk. No notable facial droop. Will rule out LV0, stroke, hemorrhage. Also rule out metabolic derangements, urinary tract infection Plan labs, imaging, urine, stroke NIH Stroke Scale/Score (NIHSS) from [employer] on 10/15/2024 All calculations should be rechecked by clinician prior to use RESULT SUMMARY: 2 points NIH Stroke Scale INPUTS: 1A: Level of consciousness ?> 0 = Alert; keenly responsive 1B: Ask month and age ?> 0 = Both questions right 1C: 'Blink eyes' & 'squeeze hands' ?> 0 = Performs both tasks 2: Horizontal extraocular movements ?> 0 = Normal 3: Visual galvez ?> 0 = No visual loss 4: Facial palsy ?> 0 = Normal symmetry 5A: Left arm motor drift ?> 0 = No drift for 10 seconds 5B: Right arm motor drift ?> 1 = Drift, but doesn't hit bed 6A: Left leg motor drift ?> 0 = No drift for 5 seconds 6B: Right leg motor drift ?> 1 = Drift, but doesn't hit bed 7: Limb Ataxia ?> 0 = No ataxia 8: Sensation ?> 0 = Normal; no sensory loss 9: Language/aphasia ?> 0 = Normal; no aphasia 10: Dysarthria ?> 0 = Normal 11: Extinction/inattention ?> 0 = No abnormality Differential Diagnosis Differential Diagnoses: The differential diagnosis associated with the presentation includes (Will rule out LV0, stroke, hemorrhage. Also rule out metabolic derangements, urinary tract infection) Admission/Observation Consideration of admission/observation: Escalation of care including admission/observation considered Consult Healthcare Provider Management of the patient was discussed with: Ultrasound Applications Specialist Lab Data [facility] Lab Attestation statement: I reviewed the patient's lab results. 10/15/24 12:22 10/15/24 12:22 Labs: Lab Results 10/15/24 10/15/24 Range/Units 12:13 12:22 WBC 5.6 (4.8-10.8) X10*3/uL RBC 4.76 (4.20-5.50) X10*6/uL Hgb 12.9 (12.0-16.0) g/dl Hct 37.8 (37.0-47.0) % MCV 79.4 L (80.0-98.0) fL MCH 27.1 (27.0-33.0) pg MCHC 34.1 (31.0-35.0) g/dl RDW 13.5 (11.0-16.0) % Plt Count 226 (160-400) X10*3/uL MPV 9.7 (9.4-12.3) fL Immature Gran % (Auto) 0.4 (0.0-0.4) % Neut % (Auto) 67.1 (45-73) % Lymph % (Auto) 23.2 (20-40) % Woods % (Auto) 6.8 (2-11) % Eos % (Auto) 2.0 (0-4) % Baso % (Auto) 0.5 (0-2) % Lymph # (Auto) 1.3 (1.2-4.9) X10*3/uL Woods # (Auto) 0.4 (0.1-1.2) X10*3/uL Eos # (Auto) 0.1 (0.0-0.4) X10*3/uL Baso # (Auto) 0.0 (0.0-0.2) X10*3/uL Abs Immat Gran (auto) 0.02 (0.00-0.03) X10*3/uL Absolute Neuts (auto) 3.7 (2.0-8.3) x10*3/uL Absolute Nucleated RBC 0.000 (0.0-0.012) X10*3/uL Nucleated RBC % (auto) 0.0 (0.0-0.2) /100WBC PT 11.3 (10.9-12.4) SEC Whole Blood PT 12.0 (11.1-13.5) sec INR 1.0 (0.9-1.1) Whole Blood INR 1.0 (0.9-1.1) APTT 30.6 (26.0-36.8) SEC Sodium 135 (135-145) mmol/L Potassium 4.2 (3.3-5.1) mmol/L Chloride 100 (96-108) mmol/L Carbon Dioxide 25 (22-29) mmol/L Anion Gap 14 (12-20) BUN 9 (9-16) mg/dL Creatinine 0.94 (0.5-1.4) mg/dL Estim Creat Clear Calc 80.5 Estimated GFR > 60 POC Glucose 299 H (60-115) mg/dL Random Glucose 338 H (60-115) mg/dL Calcium 9.3 (8.4-10.2) mg/dL Troponin I High Sens < 2.7 D (<3.5-17.0) ng/L Triglycerides 278 H (<150) mg/dL Cholesterol 235 H (<200) mg/dL LDL Cholesterol, Calc 139 H (<100) mg/dL HDL Cholesterol 41 (>40) mg/dL Independent Interpretation I performed an independent interpretation of an: CT Scan (CT/CT head for STROKE IMPRESSION: Chronic right occipital and bilateral thalamic infarcts. No acute intracranial abnormality.) Interpretation: CTA HEAD: 1. There is a moderate focal stenosis of the left MCA, distal M1 segment. Normal arborization more distally. 2. There is a moderate focal stenosis of the origin of the superior division right MCA, proximal M2 segment. Normal arborization more distally. 3. There is a mild to moderate focal stenosis of the P1/P2 junction of the right posterior cerebral artery. 4. There is a moderate to high-grade short segment stenosis measuring 6 mm of the A3 segment, right anterior cerebral artery. 5. No space-occupying hemorrhage or definite evolving infarct identified. Radiology Impression Discussion of test interpretation with radiology: I have reviewed the radiologist's reading. External Record Review External record reviewed: Inpatient record, Office record, Outpatient record, Prior outpatient labs, Prior outpatient radiology, Primary care record and Outside ED record Chronic Conditions Patient?s care impacted by: Other Critical Care Time Critical Care Time Critical Care Time: Yes Total Critical Care Time: 35 Attestation: I attest to this time spent taking care of the patient, obtaining history, physical, reviewing labs, imaging, treatment of patients condition +/- specialist/hospitalist consult +/- procedure Discharge Plan Discharge Clinical Impression: CVA (cerebral vascular accident), Right sided weakness Patient Disposition: Admitted As Inpatient Print Language: Wallisian
--- NOTE | 2024-10-15 11:54 | ECG_ITS ---
Test Reason : R/O STROKE Blood Pressure : */* mmHG Vent. Rate : 69 BPM Atrial Rate : 69 BPM P-R Int : 172 ms QRS Dur : 88 ms QT Int : 350 ms P-R-T Axes : 53 1 67 degrees QTcB Int : 375 ms Normal sinus rhythm Nonspecific T wave abnormality Abnormal ECG When compared with ECG of 28-Apr-2024 19:56, Nonspecific T wave abnormality now evident in Inferior leads Nonspecific T wave abnormality, worse in Anterolateral leads QT has shortened Referred By: Jarocho Melendez Electronically Signed By: VICTOR HUGO ELDER MD
[2024-10-15] MEDS: iohexoL 350 MG/ML 100 ML INFUS..BTL IV (12:04)
[2024-10-15 12:21] LABS: Glucose, Whole Blood 299 mg/dL (60-115)
[2024-10-15 12:34] LABS: Basophils Percent Auto 0.5 % (0-2); Eosinophils Absolute Auto 0.1 X10*3/uL (0.0-0.4); Hematocrit 37.8 % (37.0-47.0); Hemoglobin 12.9 g/dl (12.0-16.0); Imm Gran Abs Auto 0.02 X10*3/uL (0.00-0.03); Imm Gran Pct Auto 0.4 % (0.0-0.4); Lymphocytes Absolute Auto 1.3 X10*3/uL (1.2-4.9); Lymphocytes Percent Auto 23.2 % (20-40); MANUAL DIFF FLAG NO; Mean Corpuscular HGB Conc 34.1 g/dl (31.0-35.0); Mean Corpuscular Hemoglobin 27.1 pg (27.0-33.0); Mean Corpuscular Volume 79.4 fL (80.0-98.0); Mean Platelet Volume 9.7 fL (9.4-12.3); Monocytes Absolute Auto 0.4 X10*3/uL (0.1-1.2); Monocytes Percent Auto 6.8 % (2-11); Neutrophils Absolute Auto 3.7 x10*3/uL (2.0-8.3); Neutrophils Percent Auto 67.1 % (45-73); Platelet Count 226 X10*3/uL (160-400); Red Blood Count 4.76 X10*6/uL (4.20-5.50); Red Cell Distribution Width 13.5 % (11.0-16.0); White Blood Count 5.6 X10*3/uL (4.8-10.8)
[2024-10-15 12:41] LABS: Prothrombin Time 11.3 SEC (10.9-12.4)
[2024-10-15 12:43] LABS: Partial Thromboplastin Time 30.6 SEC (26.0-36.8)
[2024-10-15] MEDS: Aspirin Enteric Coated 81 MG TABLET.DR PO (12:43)
[2024-10-15 12:44] LABS: Stroke Lab Use COMPLETE
[2024-10-15 12:49] LABS: Anion Gap 14 (12-20); Blood Urea Nitrogen 9 mg/dL (9-16); Calcium 9.3 mg/dL (8.4-10.2); Carbon Dioxide 25 mmol/L (22-29); Chloride 100 mmol/L (96-108); Cholesterol 235 mg/dL (<200); Creatinine Clr Calc Pharmacy 80.5; Estimated Glomerular Filt Rate > 60; Glucose Random 338 mg/dL (60-115); HDL Cholesterol 41 mg/dL (>40); LDL Cholesterol Calculated 139 mg/dL (<100); Potassium 4.2 mmol/L (3.3-5.1); Sodium 135 mmol/L (135-145); Triglycerides 278 mg/dL (<150)
[2024-10-15 12:58] LABS: Troponin-I High Sensitivity < 2.7 ng/L (<3.5-17.0)
--- NOTE | 2024-10-15 13:38 | MHC.STROKE ---
Met with patient in Room 9 Daughter was present for education. Ground Operations Supervisor declined. Pt awake, alert and oriented x 4. Answering questions appropriately. Right sided weakness noted with hand grasp and also noted in leg strength. Mild right sided facial droop. Tongue midline, speaking in full clear sentences. Stroke Education reviewed. Pamphlet provided in Bengali Risk factors discussed including medical hx, medications, diet, activity, and social behaviors. Pt denies smoking or alcohol use. Plan is for admission per provider. Pt aware and agreeable to plan. Will continue to assist as needed.
--- NOTE | 2024-10-15 13:49 | PHA.MEDREC ---
Addendum entered by Robbie Wu 10/15/24 14:30: reviewed Original Note: Pharmacy Consult ? Medication Reconciliation Pharmacy has completed the medication reconciliation. Spoke with patient and she confirmed her medications. Patient confirmed she takes the Trazodone 150mg tab twice a day. She confirmed she was not able to take any medications today and took everything last yesterday.
--- NOTE | 2024-10-15 14:36 | P.HPHOSP_ITS ---
History of Present Illness Date of Service: 10/15/24 Attending physician on admission: [facility] Chief Complaint: Dizziness and right-sided weakness Pt is a 53-year-old female with a PMH significant for HTN, hx of multiple CVAs,?depression, and anxiety who presents to the ED with?dizziness and right- sided weakness since waking this morning at 08:00. Last known well time 22:00 last night. Pt reports when she woke up this morning tried to stand up but experienced dizziness and sat back on the bed. Once dizziness subsided pt stood up in noticed her right leg was dragging and she could not lift it up. Right upper extremityfelt heavy and weak; was unable to grasp or hold onto items. Numbness in upper extremity, but not lower. Denies tingling in either extremities. Pt reports also experienced headache, blurry vision, as well as left-sided facial droop and dysarthria that have since resolved. No SOB or difficulty breathing. Denies fever, chills, nausea, vomiting, abdominal pain. No chest pain/pressure, palpitations. In the ED pt was initially hypertensive up to 184/86, vitals otherwise stable and WNL. Labs were significant for for random glucose 338, and elevated triglycerides of 278, cholesterol 235, and LDL of 139. No leukocytosis. Stable H&H. No significant electrolyte abnormalities. Renal function baseline. Troponin negative. CT?of head showing chronic right occipital and bilateral thalamic infarcts, but no acute intracranial abnormality. CTA of head and neck showed moderate focal stenosis of left MCA, origin of superior right MCA, [id number] focal stenosis in right posterior cerebral artery, and moderate to high-grade short segment stenosis in right anterior cerebral artery. But no space-occupying hemorrhage or definite evolving infarct. EKG demonstrated normal sinus rhythm without evidence of significant ST elevations or depressions. Pt was treated with aspirin. Pt will be admitted to the hospital for treatment and further evaluation of right-sided weakness and dizziness concerning for acute CVA. Review of Systems 2 Review of Systems: Negative except for that which is stated in the HPI. [facility] Medical History TIA (transient ischemic attack) CVA (cerebral vascular accident) Hypertension FH: breast cancer in first degree relative Abnormal Pap smear of cervix Ovarian cyst Depression Family History Paternal Aunt Breast cancer Sister Breast cancer, Onset Age: 46 Surgical History H/O prior ablation treatment Hx of tubal ligation History of removal of ovarian cyst Social History Household Members: Children Housing: Apartment Housing Other:: lives with adult child in 3rd floor apt Do you presently have visiting nurse or other home services: No Alcohol intake: never Comment: Pt refuses alarms-ambulating independently Patient Tobacco Use Status: Never used Tobacco Smoked in Last 30 Days: No e-Cigarette/Vaping Use: Never Used Use of substances other than those prescribed or required for medical reasons: No Have you been hit, kicked, punched, or otherwise hurt by someone within the past year? If so, by whom?: No Do you feel safe in your current relationship?: No Current Relationship Is there a partner from a previous relationship who is making you feel unsafe now?: No Advance Directives: Yes Advance Directives on File: Yes Advance Directives Date on File: 05/09/21 Recently lost weight without trying: No How much weight loss: Not applicable Eating poorly because of decreased appetite: No Nutrition screen score: 0 Nutrition Risks: Diabetes new onset/Uncontrolled Patient : No : No Poor oral hygiene: No service: No Current occupational status: disabled Gender identity: Female Meds Allergies Allergy/AdvReac Type Severity Reaction Status Date / Time No Known Allergies Allergy Verified 10/15/24 11:54 [No Known Allergies*] Home Medications ?Medication ?Instructions ?Recorded ?Confirmed ?Last Taken ?Type doxazosin 4 mg tablet 4 mg PO BEDTIME 05/27/22 10/15/24 10/14/24 History hydroxyzine HCl 50 mg tablet 50 mg PO BEDTIME 10/29/22 10/15/24 10/14/24 History aspirin 81 mg tablet,delayed 81 mg PO DAILY 12/10/22 10/15/24 10/14/24 History release albuterol sulfate 90 mcg/actuation 2 inh inhalation Q6H PRN Shortness 04/16/24 10/15/24 Unknown History aerosol inhaler (Ventolin HFA) Of Breath Or Wheezing carvedilol 25 mg tablet 25 mg PO BID 04/16/24 10/15/24 10/14/24 History lisinopril 20 1 tab PO DAILY 04/16/24 10/15/24 10/14/24 History mg-hydrochlorothiazide 25 mg tablet trazodone 150 mg tablet 150 mg PO BID PRN Psychosis 08/13/24 10/15/24 Unknown History rosuvastatin 40 mg tablet 40 mg PO BEDTIME 10/15/24 10/15/24 10/14/24 History sertraline 100 mg tablet 100 mg PO DAILY 10/15/24 10/15/24 10/14/24 History Physical Exam 2 Vital Signs and Narrative: Vital Signs: Last Vital Signs Temp 97.9 F 10/15/24 11:49 Pulse 70 10/15/24 12:41 Resp 20 10/15/24 12:41 BP 138/60 10/15/24 12:41 Pulse Ox 96 10/15/24 12:41 O2 Del Method Room Air 10/15/24 12:23 BMI result Body Mass Index 33.9 Constitutional: Alert, in no acute distress. Mental Status: Oriented to person, place and time. Eyes: Pupils are equal, round, and reactive to light. Ear, Nose, and Throat: Oropharynx clear, mucous membranes moist. Ears and nose without deformities. Trachea midline. Respiratory: Clear to auscultation bilaterally. No wheezing, rales, or rhonchi. Cardiovascular: S1, S2 regular. No murmurs, rubs, or gallops. Gastrointestinal: Abdomen soft, non-tender, non-distended. Normal bowel sounds. Neurologic: No facial droop noted. Speaking fluently and without difficulty. Sensation to light touch intact on face. Sensation diminished on right upper and lower extremity. Diminished 2/5 strength on right upper and lower extremity. Positive pronator drift. Skin: Warm, dry. Extremities: No edema. Psychiatric: Anxious. Results Labs 10/15/24 12:22 10/15/24 12:22 Labs: Laboratory Results - last 24 hr 10/15/24 10/15/24 12:13 12:22 MCV 79.4 L MCH 27.1 MCHC 34.1 RDW 13.5 Plt Count 226 MPV 9.7 Immature Gran % (Auto) 0.4 Neut % (Auto) 67.1 Lymph % (Auto) 23.2 [place] % (Auto) 6.8 Eos % (Auto) 2.0 Baso % (Auto) 0.5 Lymph # (Auto) 1.3 [place] # (Auto) 0.4 Eos # (Auto) 0.1 Baso # (Auto) 0.0 Abs Immat Gran (auto) 0.02 Absolute Neuts (auto) 3.7 Absolute Nucleated RBC 0.000 Nucleated RBC % (auto) 0.0 PT 11.3 Whole Blood PT 12.0 INR 1.0 Whole Blood INR 1.0 APTT 30.6 Anion Gap 14 Estim Creat Clear Calc 80.5 Estimated GFR > 60 POC Glucose 299 H Random Glucose 338 H Calcium 9.3 Triglycerides 278 H Cholesterol 235 H LDL Cholesterol, Calc 139 H HDL Cholesterol 41 Imaging Radiologist's Impressions: Impressions Head CT 10/15/24 11:54 IMPRESSION: Chronic right occipital and bilateral thalamic infarcts. No acute intracranial abnormality. Electronically signed by: Harpreet Montaño MD 10/15/2024 12:07 PM EDT RP Head/Neck CTA 10/15/24 12:03 IMPRESSION: CTA NECK: 1. Moderate degree of soft and calcific plaque at both carotid bulbs/proximal ICA origins resulting in approximately 20% stenosis bilaterally. 2. No vertebral artery stenosis. Vertebrals are codominant. 3. Aortic arch is normal in caliber and great vessels are widely patent. Three-vessel branching pattern. CTA HEAD: 1. There is a moderate focal stenosis of the left MCA, distal M1 segment. Normal arborization more distally. 2. There is a moderate focal stenosis of the origin of the superior division right MCA, proximal M2 segment. Normal arborization more distally. 3. There is a mild to moderate focal stenosis of the P1/P2 junction of the right posterior cerebral artery. 4. There is a moderate to high-grade short segment stenosis measuring 6 mm of the A3 segment, right anterior cerebral artery. 5. No space-occupying hemorrhage or definite evolving infarct identified. Electronically signed by: Jonathan Grant MD 10/15/2024 12:49 PM EDT RP Assessment and Plan (1) Right sided weakness: Status: Acute Plan Pt is a 53-year-old female with a PMH significant for HTN, hx of multiple CVAs,?depression, and anxiety who presents to the ED with?dizziness and right- sided weakness since waking this morning. Pt will be admitted to the hospital for treatment and further evaluation of right-sided weakness and dizziness concerning for acute CVA. Right-sided weakness Pt with dizziness, [place], left-sided facial droop, dysarthria, right-sided weakness +pronator drift, reduced sensation to light touch of right upper and lower extremities Concerning for acute CVA Hx of at least two previous strokes, one in 2020 Will get MRI of brain Continue aspirin, high-intensity statin Start Plavix 75mg daily Lipid profile elevated PT/OT evaluation Neurology consult Monitor on telemetry HTN Historically difficult to control, likely due to medication non-compliance Hold amlodipine, carvedilol, doxazosin, lisinopril/hydrochlorothiazide, and spironolactone for now to allow for permissive hypertension Monitor BP closely Treat if SBP <180 Type 2 diabetes Random glucose 338 A1c 8.9 Pt denies previous hx of diabetes, not on medications Will start with sliding scale insulin and Lantus 5 units at bedtime Diabetic diet Will need follow-up with PCP and/or endocrinology for outpatient monitoring and treatment Full Code Attending:?Dr. Hennessy DVT Prophylaxis: Lovenox Pt will require a hospitalization of at least two nights for treatment of?dizziness and right-sided deficits concerning for acute CVA. Pt will need hospital level care for additional imaging with an MRI, specialist consultation with Neurology, as well as evaluation by PT/OT for safe disposition home. Quality Stroke Does the patient have a stroke diagnosis?: No Reason for No Anti-thrombotic by Day Two: Contraindicated (Outside of TNK therapeutic window. Last known well time 10pm last night.) VTE Prior VTE?: No VTE Risk Level:: Medical - moderate - high VTE Device Contraindication: Treatment Not Indicated VTE Drug Contraindication: N/A - Med Ordered
[2024-10-15 15:03] LABS: Estimated Average Glucose 209 mg/dL; Hemoglobin A1c % 8.9 % (<6.0)
[2024-10-15] MEDS: Enoxaparin Sodium 40 MG/0.4 ML SYRINGE SUBCUT (15:09)
[2024-10-15] MEDS: Clopidogrel Bisulfate 75 MG TABLET PO (15:09)
[2024-10-15] MEDS: 0.9 % Sodium Chloride Flush 3 ML SYRINGE IVFLUSH ×2 (15:10→23:30)
--- NOTE | 2024-10-15 15:41 | PC.NURSE ---
MRI screening form completed with medical office manager. Copy of form sent to CONNIE Sarah per request. Hard copy placed in chart.
[2024-10-15] MEDS: Insulin Lispro 100 UNIT/ML 3 ML VIAL SUBCUT ×2 (16:24→22:24)
--- NOTE | 2024-10-15 17:32 | PC.NURSE ---
Pt off unit for MRI at approx. 1715.
--- NOTE | 2024-10-15 18:16 | PC.NURSE ---
Critical result called in from Veronica at [facility] Radiology on brain MRI: IMPRESSION: 1. Small focus of acute to subacute infarct within the left riley radiata extending into the left basal ganglia. There is associated increased T2/FLAIR signal changes. Additional small subacute infarct within the right frontal lobe also with associated increased T2/FLAIR signal. 2. Chronic right parietal and bilateral basal ganglia infarcts. 3. Mild white-matter small-vessel disease with mild global cerebral volume loss. Results sent to Dr. Hennessy via [employer]. No new orders received.
[2024-10-15] MEDS: Melatonin 3 MG TABLET 6 MG PO (21:02)
[2024-10-15] MEDS: Acetaminophen 325 MG TABLET 650 MG PO (21:02)
[2024-10-15] MEDS: Atorvastatin Calcium 80 MG TABLET PO (21:03)
[2024-10-15] MEDS: Insulin Glargine,Hum.rec.anlog 100 UNIT/ML 10 ML VIAL SUBCUT (22:24)
[2024-10-16] VITALS (9 sets, daily range): BP systolic 141–181; BP diastolic 77–98; PULSE 69–81; RESP 15–19; TEMP 36.1–37.3; O2SAT 93–96
[2024-10-16 02:01] LABS: Glucose, Whole Blood 229 mg/dL (60-115)
[2024-10-16 02:01] LABS: Glucose, Whole Blood 319 mg/dL (60-115)
[2024-10-16 02:02] LABS: Glucose, Whole Blood 263 mg/dL (60-115)
[2024-10-16] MEDS: HYDROmorphone HCl 0.5 MG/0.5 ML SYRINGE IVPUSH (03:41)
--- NOTE | 2024-10-16 04:34 | PM.EVENT ---
Event Note Date of Service: 10/16/24 Event Note: Right hand weakness: Patient reported that earlier she was able to move her fingers of the right hand compared to the left hand. She does have weakness on the right upper extremity compared to the left leg cramp street from presentation. MRI showed CVA. But over the night patient reported that she felt like she lost function in her right hand completely and not able to grasp. Ordered for stat CT head. Neurology follow-up in a.m. Will pass on to the day hospitalist Time Spent With Patient Time: Total time managing care of this patient today ____ minutes.
[2024-10-16 08:36] LABS: Glucose, Whole Blood 343 mg/dL (60-115)
[2024-10-16] MEDS: Aspirin Enteric Coated 81 MG TABLET.DR PO (09:24)
[2024-10-16] MEDS: 0.9 % Sodium Chloride Flush 3 ML SYRINGE IVFLUSH ×3 (09:25→21:00)
[2024-10-16] MEDS: Insulin Lispro 100 UNIT/ML 3 ML VIAL SUBCUT ×4 (09:25→20:53)
[2024-10-16] MEDS: Sertraline HCL 100 MG TABLET PO (09:25)
[2024-10-16] MEDS: Clopidogrel Bisulfate 75 MG TABLET PO (09:25)
--- NOTE | 2024-10-16 09:44 | MHC.CM.PN ---
CM met with Patient at bedside,with the assist of [place] [facility] [place]pre[place]/Translator and addressed IMM with her(original was given to Patient and a copy has been placed on the chart). Patient lives in a third floor apartment with her Daughter and her Son/Ervin is her HCP. PT is recommending Acute Rehab and [facility] is Patient's first choice, CM has initiated and will follow for dc planning. PCP is Dr. Ani milian Patient will require S transport to Rehab.
--- NOTE | 2024-10-16 09:58 | P.PNIM_ITS ---
Subjective Subjective Date of Service: 10/16/24 Interval History: f/u on acute stroke with right sided weakness Physical Exam 2 Vital Signs: Vital Signs: Last Vital Signs Temp 97.0 F 10/16/24 07:21 Pulse 77 10/16/24 07:21 Resp 19 10/16/24 07:21 BP 144/77 H 10/16/24 07:21 Pulse Ox 94 10/16/24 07:21 O2 Del Method Room Air 10/16/24 07:21 O2 Flow Rate 93 10/15/24 16:07 BMI result Body Mass Index 33.9 Const: Other: Constitutional: Alert, in no acute distress. Mental Status: Oriented to person, place and time. Eyes: Pupils are equal, round, and reactive to light. Ear, Nose, and Throat: Oropharynx clear, mucous membranes moist. Ears and nose without deformities. Trachea midline. Respiratory: Clear to auscultation bilaterally. No wheezing, rales, or rhonchi. Cardiovascular: S1, S2 regular. No murmurs, rubs, or gallops. Gastrointestinal: Abdomen soft, non-tender, non-distended. Normal bowel sounds. Neurologic: No facial droop noted. Speaking fluently and without difficulty. Sensation to light touch intact on face. Sensation diminished on right upper and lower extremity. Diminished 2/5 strength on right upper and lower extremity. Positive pronator drift. Skin: Warm, dry. Extremities: No edema. Psychiatric: Anxious Objective Data Active Medications Acetaminophen (Acetaminophen 325 Mg Tablet) 650 mg PO Q6H PRN PRN Reason: Pain, Mild 1-3,fever,headache Last Admin: 10/15/24 21:02 Dose: 650 mg Documented By: JOI Albuterol Sulfate (Albuterol Sulfate 90 Mcg 8 Gm Inhaler) 2 puff INHALE Q6H PRN PRN Reason: Shortness Of Breath Or Wheezing Aspirin (Aspirin Enteric Coated 81 Mg Tablet.) 81 mg PO DAILY [facility] Last Admin: 10/16/24 09:24 Dose: 81 mg Documented By: ALVA Atorvastatin Calcium (Atorvastatin Calcium 80 Mg Tablet) 80 mg PO BEDTIME [facility] Last Admin: 10/15/24 21:03 Dose: 80 mg Documented By: JOI Calcium Carbonate (Calcium Carbonate 750 Mg Tab.Chew) 750 mg PO Q4H PRN PRN Reason: Heartburn Clopidogrel Bisulfate (Clopidogrel Bisulfate 75 Mg Tablet) 75 mg PO DAILY [facility] Last Admin: 10/16/24 09:25 Dose: 75 mg Documented By: ALVA Dextrose (Dextrose 50 % 25 Gm/50 Ml Syringe) 25 gm IVPUSH Q15M PRN; Protocol PRN Reason: per Hypoglycemia Standing Ord. Enoxaparin Sodium (Enoxaparin Sodium 40 Mg/0.4 Ml Syringe) 40 mg SUBCUT Q24H [facility] Last Admin: 10/15/24 15:09 Dose: 40 mg Documented By: BENITO Glucose (Glucose Gel 15 Gm Gel..Gram.) 15 gm PO Q15M PRN; Protocol PRN Reason: per Hypoglycemia Standing Ord. Hydroxyzine HCl (Hydroxyzine Hcl 50 Mg Tablet) 50 mg PO BEDTIME [facility] Last Admin: 10/15/24 22:00 Dose: Not Given Documented By: JOI Non-Admin Reason: See Note Insulin Glargine (Insulin Glargine,Hum.Rec.Anlog 100 Unit/Ml 10 Ml Vial) 5 unit SUBCUT BEDTIME [facility] Last Admin: 10/15/24 22:24 Dose: 5 unit Documented By: JOI Insulin Human Lispro (Insulin Lispro 100 Unit/Ml 3 Ml Vial) 0 unit SUBCUT QIDACHS [facility]; Protocol Last Admin: 10/16/24 09:25 Dose: 8 unit Documented By: ALVA Magnesium Hydroxide (Milk Of Magnesia 30 Ml Oral.Susp) 30 ml PO DAILY PRN PRN Reason: Constipation Melatonin (Melatonin 3 Mg Tablet) 6 mg PO BEDTIME PRN PRN Reason: Insomnia Last Admin: 10/15/24 21:02 Dose: 6 mg Documented By: JOI Ondansetron HCl (Ondansetron Hcl 4 Mg/2 Ml Vial) 4 mg IVPUSH Q8H PRN PRN Reason: Nausea and Vomiting Sertraline HCl (Sertraline Hcl 100 Mg Tablet) 100 mg PO DAILY [facility] Last Admin: 10/16/24 09:25 Dose: 100 mg Documented By: ALVA Sodium Chloride (0.9 % Sodium Chloride Flush 3 Ml Syringe) 3 ml IVFLUSH QSHIFT [facility] Last Admin: 10/16/24 09:25 Dose: 3 ml Documented By: ALVA Trazodone HCl (Trazodone Hcl 50 Mg Tablet) 150 mg PO BID PRN PRN Reason: Psychosis Labs 10/15/24 12:22 10/15/24 12:22 Labs: Laboratory Results - last 24 hr 10/15/24 10/15/24 10/15/24 12:13 12:22 16:18 MCV 79.4 L MCH 27.1 MCHC 34.1 RDW 13.5 Plt Count 226 MPV 9.7 Immature Gran % (Auto) 0.4 Neut % (Auto) 67.1 Lymph % (Auto) 23.2 [place] % (Auto) 6.8 Eos % (Auto) 2.0 Baso % (Auto) 0.5 Lymph # (Auto) 1.3 [place] # (Auto) 0.4 Eos # (Auto) 0.1 Baso # (Auto) 0.0 Abs Immat Gran (auto) 0.02 Absolute Neuts (auto) 3.7 Absolute Nucleated RBC 0.000 Nucleated RBC % (auto) 0.0 PT 11.3 Whole Blood PT 12.0 INR 1.0 Whole Blood INR 1.0 APTT 30.6 Anion Gap 14 Estim Creat Clear Calc 80.5 Estimated GFR > 60 POC Glucose 299 H 319 H Random Glucose 338 H Estimat Average Glucose 209 Hemoglobin A1c % 8.9 H Calcium 9.3 Triglycerides 278 H Cholesterol 235 H LDL Cholesterol, Calc 139 H HDL Cholesterol 41 10/15/24 10/15/24 10/16/24 18:05 21:36 07:18 MCV MCH MCHC RDW Plt Count MPV Immature Gran % (Auto) Neut % (Auto) Lymph % (Auto) [place] % (Auto) Eos % (Auto) Baso % (Auto) Lymph # (Auto) [place] # (Auto) Eos # (Auto) Baso # (Auto) Abs Immat Gran (auto) Absolute Neuts (auto) Absolute Nucleated RBC Nucleated RBC % (auto) PT Whole Blood PT INR Whole Blood INR APTT Anion Gap Estim Creat Clear Calc Estimated GFR POC Glucose 229 H 263 H 343 H Random Glucose Estimat Average Glucose Hemoglobin A1c % Calcium Triglycerides Cholesterol LDL Cholesterol, Calc HDL Cholesterol Assessment and Plan (1) HTN (hypertension): Status: Acute (2) Hypertension: Status: Acute (3) Uncontrolled hypertension: Status: Acute Plan Pt is a 53-year-old female with a PMH significant for HTN, hx of multiple CVAs,?depression, and anxiety who presents to the ED with?dizziness and right- sided weakness since waking this morning. Pt will be admitted to the hospital for treatment and further evaluation of right-sided weakness and dizziness concerning for acute CVA. Right-sided weakness, MRI shows Small focus of diffusion restriction within the left riley radiata extending into the left basal ganglia, has persistent weakness on right side -continue ASA, Plavix, statin, Neuro consult pending, PT/OT and will likely need acute inpatient rehab HTN, hold med in acue stroke setting for permissive HTN, reasses in 2 days Type 2 diabetes, new A1C 9.9, FBS 343 Sliding scale insulin Lantus 10 am, 5 pm and adjust as needed diabetic diet Full Code DVT Prophylaxis: Lovenox Pt will require a hospitalization of at least two nights for treatment of?dizziness and right-sided deficits concerning for acute CVA. Pt will need hospital level care for additional imaging with an MRI, specialist consultation with Neurology, as well as evaluation by PT/OT for safe disposition home. Quality Stroke Does the patient have a stroke diagnosis?: No Reason for No Anti-thrombotic by Day Two: Contraindicated (Outside of TNK therapeutic window. Last known well time 10pm last night.) VTE Prior VTE?: No VTE Risk Level:: Medical - moderate - high VTE Device Contraindication: Treatment Not Indicated VTE Drug Contraindication: N/A - Med Ordered
[2024-10-16 11:39] LABS: Glucose, Whole Blood 261 mg/dL (60-115)
[2024-10-16] MEDS: Acetaminophen 325 MG TABLET 650 MG PO (12:17)
[2024-10-16] MEDS: Insulin Glargine,Hum.rec.anlog 100 UNIT/ML 10 ML VIAL 10 UNIT SUBCUT (12:18)
--- NOTE | 2024-10-16 14:25 | PC.NURSE ---
Addendum entered by Karin Antunez RN 10/16/24 15:56: per pt h/a improved to 5/10 and vision still blurry but improved from prior assessment. aware Addendum entered by Karin Antunez RN 10/16/24 14:49: stat head CT ordered Original Note: pt reporting worseing 10/10 h/a after giving Tylenol about an hour ago with vision changes. states the h/a starts from forehead to the back of head as well as eye pressure and blurry vision. Dr. Hennessy notified. no new orders at this time. medicated per SEP.
[2024-10-16] MEDS: Morphine Sulfate 4 MG/ML CARTRIDGE 2 MG IVPUSH ×2 (14:40→20:57)
--- NOTE | 2024-10-16 15:41 | PM.EVENT ---
Event Note Date of Service: 10/16/24 Event Note: pt c/o ABRAHAM, visual change that is new, exam unchanged. bp was elevated. Stat Head CT, no acute finding, sepecifically no hemorrhage. Treat pain. Awaiting Neuro eval Time Spent With Patient Time: Total time managing care of this patient today ____ minutes.
[2024-10-16 17:37] LABS: Glucose, Whole Blood 155 mg/dL (60-115)
[2024-10-16] MEDS: Enoxaparin Sodium 40 MG/0.4 ML SYRINGE SUBCUT (17:48)
[2024-10-16] MEDS: hydrOXYzine HCL 50 MG TABLET PO (20:53)
[2024-10-16] MEDS: Insulin Glargine,Hum.rec.anlog 100 UNIT/ML 10 ML VIAL SUBCUT (20:53)
[2024-10-16] MEDS: Atorvastatin Calcium 80 MG TABLET PO (20:53)
[2024-10-16 21:47] LABS: Glucose, Whole Blood 155 mg/dL (60-115)
[2024-10-16 21:48] LABS: Glucose, Whole Blood 155 mg/dL (60-115)
[2024-10-17] VITALS (7 sets, daily range): BP systolic 158–179; BP diastolic 62–95; PULSE 69–78; RESP 14–20; TEMP 36.2–37.2; O2SAT 92–96
[2024-10-17 07:39] LABS: Glucose, Whole Blood 222 mg/dL (60-115)
[2024-10-17] MEDS: Clopidogrel Bisulfate 75 MG TABLET PO (08:00)
[2024-10-17] MEDS: Aspirin Enteric Coated 81 MG TABLET.DR PO (08:00)
[2024-10-17] MEDS: Sertraline HCL 100 MG TABLET PO (08:00)
[2024-10-17] MEDS: Insulin Lispro 100 UNIT/ML 3 ML VIAL SUBCUT ×3 (08:00→20:31)
[2024-10-17] MEDS: 0.9 % Sodium Chloride Flush 3 ML SYRINGE IVFLUSH ×3 (08:01→20:31)
[2024-10-17] MEDS: Insulin Glargine,Hum.rec.anlog 100 UNIT/ML 10 ML VIAL 10 UNIT SUBCUT (08:01)
[2024-10-17 08:15] LABS: Hematocrit 41.6 % (37.0-47.0); Hemoglobin 14.1 g/dl (12.0-16.0); Mean Corpuscular HGB Conc 33.9 g/dl (31.0-35.0); Mean Corpuscular Hemoglobin 27.2 pg (27.0-33.0); Mean Corpuscular Volume 80.2 fL (80.0-98.0); Mean Platelet Volume 9.7 fL (9.4-12.3); Platelet Count 276 X10*3/uL (160-400); Red Blood Count 5.19 X10*6/uL (4.20-5.50); Red Cell Distribution Width 13.7 % (11.0-16.0); White Blood Count 6.7 X10*3/uL (4.8-10.8)
[2024-10-17 08:30] LABS: Anion Gap 14 (12-20); Blood Urea Nitrogen 22 mg/dL (9-16); Calcium 9.6 mg/dL (8.4-10.2); Carbon Dioxide 26 mmol/L (22-29); Chloride 101 mmol/L (96-108); Creatinine Clr Calc Pharmacy 77.2; Estimated Glomerular Filt Rate 59; Glucose Random 213 mg/dL (60-115); Potassium 3.9 mmol/L (3.3-5.1); Sodium 137 mmol/L (135-145)
--- NOTE | 2024-10-17 10:42 | P.PNIM_ITS ---
Subjective Subjective Date of Service: 10/17/24 Interval History: f/u on acute stroke with right sided weakness No new changed still weak on the right side with no function at all in the right arm and leg no further headache and visual changes Physical Exam 2 Vital Signs: Vital Signs: Last Vital Signs Temp 97.1 F 10/17/24 07:12 Pulse 78 10/17/24 07:12 Resp 18 10/17/24 07:12 BP 160/87 H 10/17/24 07:12 Pulse Ox 96 10/17/24 07:12 O2 Del Method Room Air 10/17/24 07:12 O2 Flow Rate 93 10/15/24 16:07 BMI result Body Mass Index 33.9 Const: Other: Constitutional: Alert, in no acute distress. Respiratory: Clear to auscultation bilaterally. No wheezing, rales, or rhonchi. Cardiovascular: S1, S2 regular. No murmurs, rubs, or gallops. Gastrointestinal: Abdomen soft, non-tender, non-distended. Normal bowel sounds. Neurologic: No facial droop noted. Speaking fluently and without difficulty. Sensation to light touch intact on face. Sensation diminished on right upper and lower extremity. very weak on the right side, not able to move arm at all Skin: Warm, dry. Extremities: No edema. Psychiatric: less Anxious Objective Data Active Medications Acetaminophen (Acetaminophen 325 Mg Tablet) 650 mg PO Q6H PRN PRN Reason: Pain, Mild 1-3,fever,headache Last Admin: 10/16/24 12:17 Dose: 650 mg Documented By: ALVA Albuterol Sulfate (Albuterol Sulfate 90 Mcg 8 Gm Inhaler) 2 puff INHALE Q6H PRN PRN Reason: Shortness Of Breath Or Wheezing Aspirin (Aspirin Enteric Coated 81 Mg Tablet.) 81 mg PO DAILY [facility] [place] Last Admin: 10/17/24 08:00 Dose: 81 mg Documented By: ALVA Atorvastatin Calcium (Atorvastatin Calcium 80 Mg Tablet) 80 mg PO BEDTIME [facility] [place] Last Admin: 10/16/24 20:53 Dose: 80 mg Documented By: YAZ Calcium Carbonate (Calcium Carbonate 750 Mg Tab.Chew) 750 mg PO Q4H PRN PRN Reason: Heartburn Clopidogrel Bisulfate (Clopidogrel Bisulfate 75 Mg Tablet) 75 mg PO DAILY [facility] [place] Last Admin: 10/17/24 08:00 Dose: 75 mg Documented By: ALVA Dextrose (Dextrose 50 % 25 Gm/50 Ml Syringe) 25 gm IVPUSH Q15M PRN; Protocol PRN Reason: per Hypoglycemia Standing Ord. Enoxaparin Sodium (Enoxaparin Sodium 40 Mg/0.4 Ml Syringe) 40 mg SUBCUT Q24H [facility] [place] Last Admin: 10/16/24 17:48 Dose: 40 mg Documented By: ALVA Glucose (Glucose Gel 15 Gm Gel..Gram.) 15 gm PO Q15M PRN; Protocol PRN Reason: per Hypoglycemia Standing Ord. Hydroxyzine HCl (Hydroxyzine Hcl 50 Mg Tablet) 50 mg PO BEDTIME [facility] [place] Last Admin: 10/16/24 20:53 Dose: 50 mg Documented By: YAZ Insulin Glargine (Insulin Glargine,Hum.Rec.Anlog 100 Unit/Ml 10 Ml Vial) 5 unit SUBCUT BEDTIME [facility] [place] Last Admin: 10/16/24 20:53 Dose: 5 unit Documented By: YAZ Insulin Glargine (Insulin Glargine,Hum.Rec.Anlog 100 Unit/Ml 10 Ml Vial) 10 unit SUBCUT DAILY [facility] [place] Last Admin: 10/17/24 08:01 Dose: 10 unit Documented By: ALVA Insulin Human Lispro (Insulin Lispro 100 Unit/Ml 3 Ml Vial) 0 unit SUBCUT QIDACHS [facility] [place]; Protocol Last Admin: 10/17/24 08:00 Dose: 4 unit Documented By: ALVA Magnesium Hydroxide (Milk Of Magnesia 30 Ml Oral.Susp) 30 ml PO DAILY PRN PRN Reason: Constipation Melatonin (Melatonin 3 Mg Tablet) 6 mg PO BEDTIME PRN PRN Reason: Insomnia Last Admin: 10/15/24 21:02 Dose: 6 mg Documented By: JOI Morphine Sulfate (Morphine Sulfate 4 Mg/Ml Cartridge) 2 mg IVPUSH Q4H PRN; Protocol PRN Reason: Pain, Severe (Pain Scale 7-10) Last Admin: 10/16/24 20:57 Dose: 2 mg Documented By: YAZ Ondansetron HCl (Ondansetron Hcl 4 Mg/2 Ml Vial) 4 mg IVPUSH Q8H PRN PRN Reason: Nausea and Vomiting Sertraline HCl (Sertraline Hcl 100 Mg Tablet) 100 mg PO DAILY [facility] [place] Last Admin: 10/17/24 08:00 Dose: 100 mg Documented By: ALVA Sodium Chloride (0.9 % Sodium Chloride Flush 3 Ml Syringe) 3 ml IVFLUSH QSHIFT [facility] [place] Last Admin: 10/17/24 08:01 Dose: 3 ml Documented By: ALVA Trazodone HCl (Trazodone Hcl 50 Mg Tablet) 150 mg PO BID PRN PRN Reason: Psychosis Labs 10/17/24 07:50 10/17/24 07:50 Labs: Laboratory Results - last 24 hr 10/16/24 10/16/24 10/16/24 11:31 16:27 20:23 MCV MCH MCHC RDW Plt Count MPV Absolute Nucleated RBC Nucleated RBC % (auto) Hold Purple Top Anion Gap Estim Creat Clear Calc Estimated GFR POC Glucose 261 H 155 H 155 H Random Glucose Calcium 10/16/24 10/17/24 10/17/24 20:23 07:15 07:50 MCV 80.2 MCH 27.2 MCHC 33.9 RDW 13.7 Plt Count 276 MPV 9.7 Absolute Nucleated RBC 0.000 Nucleated RBC % (auto) 0.0 Hold Purple Top SEE NOTE Anion Gap 14 Estim Creat Clear Calc 77.2 Estimated GFR 59 POC Glucose 155 H 222 H Random Glucose 213 H Calcium 9.6 Assessment and Plan (1) HTN (hypertension): Status: Acute (2) Hypertension: Status: Acute (3) Uncontrolled hypertension: Status: Acute Plan Pt is a 53-year-old female with a PMH significant for HTN, hx of multiple CVAs,?depression, and anxiety who presents to the ED with?dizziness and right- sided weakness since waking this morning. Pt will be admitted to the hospital for treatment and further evaluation of right-sided weakness and dizziness concerning for acute CVA. Right-sided weakness, MRI shows Small focus of diffusion restriction within the left riley radiata extending into the left basal ganglia, has persistent weakness on right side--repeat CT showed evolving stroke -continue ASA, Plavix, statin, Neuro consult pending, PT/OT recommend acute inpatient rehab HTN, holding med in acute e stroke setting for permissive HTN restart BP meds today Type 2 diabetes, new A1C 9.9, FBS 343 Sliding scale insulin Lantus 10 am, 5 pm and adjust as needed diabetic diet Full Code DVT Prophylaxis: Lovenox Pt will require a hospitalization of at least two nights for treatment of?dizziness and right-sided deficits concerning for acute CVA. Pt will need hospital level care for additional imaging with an MRI, specialist consultation with Neurology, as well as evaluation by PT/OT for safe disposition home. Quality Stroke Does the patient have a stroke diagnosis?: No Reason for No Anti-thrombotic by Day Two: Contraindicated (Outside of TNK therapeutic window. Last known well time 10pm last night.) VTE Prior VTE?: No VTE Risk Level:: Medical - moderate - high VTE Device Contraindication: Treatment Not Indicated VTE Drug Contraindication: N/A - Med Ordered
[2024-10-17 11:38] LABS: Glucose, Whole Blood 195 mg/dL (60-115)
--- NOTE | 2024-10-17 12:25 | PM.NEUROCN ---
History of Present Illness Data of Consult Service Date: 10/17/24 Primary Care Provider: MD PEYMAN Sheth Reason for consult: Stroke 53 years old woman with uncontrolled hypertension, uncontrolled diabetes and uncontrolled hyperlipidemia came to hospital with new onset of dizziness and mild right-sided weakness that was noted upon waking up. Last time well was the night before. In emergency room she had mild right-sided weakness and because of the extent of deficit and the timing issues, TNK was not considered. She was admitted for further evaluation. Her CTA revealed multiple areas of intracranial atherosclerotic stenosis but no obvious embolus. Now she was feeling better as far as dizziness was concerned but right arm was still weak. Review of Systems Review of Systems: No recent cold or flu-like illness or headache PMFSH Past Medical History Medical History TIA (transient ischemic attack) CVA (cerebral vascular accident) Hypertension FH: breast cancer in first degree relative Abnormal Pap smear of cervix Ovarian cyst Depression Family History Family History Paternal Aunt Breast cancer Sister Breast cancer, Onset Age: 46 Surgical History Surgical History H/O prior ablation treatment Hx of tubal ligation History of removal of ovarian cyst Social History Social History Household Members: Children Housing: Apartment Housing Other:: lives with adult child in 3rd floor apt Do you presently have visiting nurse or other home services: No Alcohol intake: never Comment: Pt refuses alarms-ambulating independently Patient Tobacco Use Status: Never used Tobacco Smoked in Last 30 Days: No e-Cigarette/Vaping Use: Never Used Use of substances other than those prescribed or required for medical reasons: No Currently Displaying Signs/Symptoms of Drug Intoxication Withdrawal: No Have you been hit, kicked, punched, or otherwise hurt by someone within the past year? If so, by whom?: No Do you feel safe in your current relationship?: No Current Relationship Is there a partner from a previous relationship who is making you feel unsafe now?: No Advance Directives: Yes Advance Directives on File: Yes Advance Directives Date on File: 05/09/21 Recently lost weight without trying: No How much weight loss: Not applicable Eating poorly because of decreased appetite: No Nutrition screen score: 0 Nutrition Risks: Diabetes new onset/Uncontrolled Patient : No : No Poor oral hygiene: No service: No Current occupational status: disabled Gender identity: Female Meds Allergies Allergy/AdvReac Type Severity Reaction Status Date / Time No Known Allergies Allergy Verified 10/15/24 11:54 [No Known Allergies*] Active Medications: Current Medications Acetaminophen (Acetaminophen 325 Mg Tablet) 650 mg PO Q6H PRN PRN Reason: Pain, Mild 1-3,fever,headache Last Admin: 10/16/24 12:17 Dose: 650 mg Albuterol Sulfate (Albuterol Sulfate 90 Mcg 8 Gm Inhaler) 2 puff INHALE Q6H PRN PRN Reason: Shortness Of Breath Or Wheezing Aspirin (Aspirin Enteric Coated 81 Mg Tablet.Dr) 81 mg PO DAILY [facility] Last Admin: 10/17/24 08:00 Dose: 81 mg Atorvastatin Calcium (Atorvastatin Calcium 80 Mg Tablet) 80 mg PO BEDTIME [facility] Last Admin: 10/16/24 20:53 Dose: 80 mg Calcium Carbonate (Calcium Carbonate 750 Mg Tab.Chew) 750 mg PO Q4H PRN PRN Reason: Heartburn Clopidogrel Bisulfate (Clopidogrel Bisulfate 75 Mg Tablet) 75 mg PO DAILY [facility] Last Admin: 10/17/24 08:00 Dose: 75 mg Dextrose (Dextrose 50 % 25 Gm/50 Ml Syringe) 25 gm IVPUSH Q15M PRN; Protocol PRN Reason: per Hypoglycemia Standing Ord. Enoxaparin Sodium (Enoxaparin Sodium 40 Mg/0.4 Ml Syringe) 40 mg SUBCUT Q24H [facility] Last Admin: 10/16/24 17:48 Dose: 40 mg Glucose (Glucose Gel 15 Gm Gel..Gram.) 15 gm PO Q15M PRN; Protocol PRN Reason: per Hypoglycemia Standing Ord. Hydroxyzine HCl (Hydroxyzine Hcl 50 Mg Tablet) 50 mg PO BEDTIME [facility] Last Admin: 10/16/24 20:53 Dose: 50 mg Insulin Glargine (Insulin Glargine,Hum.Rec.Anlog 100 Unit/Ml 10 Ml Vial) 5 unit SUBCUT BEDTIME [facility] Last Admin: 10/16/24 20:53 Dose: 5 unit Insulin Glargine (Insulin Glargine,Hum.Rec.Anlog 100 Unit/Ml 10 Ml Vial) 10 unit SUBCUT DAILY [facility] Last Admin: 10/17/24 08:01 Dose: 10 unit Insulin Human Lispro (Insulin Lispro 100 Unit/Ml 3 Ml Vial) 0 unit SUBCUT QIDACHS [facility]; Protocol Last Admin: 10/17/24 08:00 Dose: 4 unit Magnesium Hydroxide (Milk Of Magnesia 30 Ml Oral.Susp) 30 ml PO DAILY PRN PRN Reason: Constipation Melatonin (Melatonin 3 Mg Tablet) 6 mg PO BEDTIME PRN PRN Reason: Insomnia Last Admin: 10/15/24 21:02 Dose: 6 mg Morphine Sulfate (Morphine Sulfate 4 Mg/Ml Cartridge) 2 mg IVPUSH Q4H PRN; Protocol PRN Reason: Pain, Severe (Pain Scale 7-10) Last Admin: 10/16/24 20:57 Dose: 2 mg Ondansetron HCl (Ondansetron Hcl 4 Mg/2 Ml Vial) 4 mg IVPUSH Q8H PRN PRN Reason: Nausea and Vomiting Sertraline HCl (Sertraline Hcl 100 Mg Tablet) 100 mg PO DAILY [facility] Last Admin: 10/17/24 08:00 Dose: 100 mg Sodium Chloride (0.9 % Sodium Chloride Flush 3 Ml Syringe) [facility] Last Admin: 10/17/24 08:01 Dose: 3 ml Trazodone HCl (Trazodone Hcl 50 Mg Tablet) 150 mg PO BID PRN PRN Reason: Psychosis Home Medications ?Medication ?Instructions ?Recorded ?Confirmed ?Last Taken ?Type doxazosin 4 mg tablet 4 mg PO BEDTIME 05/27/22 10/15/24 10/14/24 History hydroxyzine HCl 50 mg tablet 50 mg PO BEDTIME 10/29/22 10/15/24 10/14/24 History aspirin 81 mg tablet,delayed 81 mg PO DAILY 12/10/22 10/15/24 10/14/24 History release albuterol sulfate 90 mcg/actuation 2 inh inhalation Q6H PRN Shortness 04/16/24 10/15/24 Unknown History aerosol inhaler (Ventolin HFA) Of Breath Or Wheezing carvedilol 25 mg tablet 25 mg PO BID 04/16/24 10/15/24 10/14/24 History lisinopril 20 1 tab PO DAILY 04/16/24 10/15/24 10/14/24 History mg-hydrochlorothiazide 25 mg tablet trazodone 150 mg tablet 150 mg PO BID PRN Psychosis 08/13/24 10/15/24 Unknown History rosuvastatin 40 mg tablet 40 mg PO BEDTIME 10/15/24 10/15/24 10/14/24 History sertraline 100 mg tablet 100 mg PO DAILY 10/15/24 10/15/24 10/14/24 History Physical Exam Vital Signs: Vital Signs: Last Vital Signs Temp 98.4 F 10/17/24 11:39 Pulse 77 10/17/24 11:39 Resp 17 10/17/24 11:39 BP 162/88 H 10/17/24 11:39 Pulse Ox 95 10/17/24 11:39 O2 Del Method Room Air 10/17/24 11:39 O2 Flow Rate 93 10/15/24 16:07 BMI result Body Mass Index 33.9 Neuro: Other: She is alert and awake with normal spontaneity of speech fluency comprehension and affect. Into was performed with the help of an lawyer. There was mild right-sided central facial weakness. She did not lift her right arm against gravity. She lifted her right leg against gravity. Plantars were equivocal. Deep tendon reflexes were trace to absent. There was no sensory or visual extinction. Visual galvez are full. Extraocular muscles were intact. Results Labs 10/17/24 07:50 10/17/24 07:50 Labs: Short CBC 10/17/24 Range/Units 07:50 WBC 6.7 (4.8-10.8) X10*3/uL Hgb 14.1 (12.0-16.0) g/dl Hct 41.6 (37.0-47.0) % Plt Count 276 (160-400) X10*3/uL BMP 10/17/24 07:50 Sodium 137 Potassium 3.9 Chloride 101 Carbon Dioxide 26 BUN 22 H Creatinine 0.98 Calcium 9.6 MRI of brain revealed a small area of restricted diffusion and left supra thalamic periventricular area. Evidence of chronic right occipital and smaller multiple bilateral ischemic infarctions were noted. CTA of brain and neck revealed bilateral middle cerebral artery and many other areas of similar stenosis and anterior posterior circulation. Assessment and Plan (1) CVA (cerebral vascular accident): Qualifiers: CVA mechanism: thrombosis Precerebral and cerebral artery: middle cerebral artery Laterality of affected vessel: left Qualified Code(s): I63.312 - Cerebral infarction due to thrombosis of left middle cerebral artery Status: Acute 53 years old woman with diffuse intracranial atherosclerotic stenotic disease affecting anterior and posterior circulation, uncontrolled hypertension, uncontrolled diabetes, and uncontrolled hyperlipidemia had a small left middle cerebral artery area ischemic infarction resulting in right hemiparesis. Mainstay of management is patient education, anti-platelet therapy, for now aspirin 81 mg +clopidogrel 75 mg, high dose statin, diabetic control, and blood pressure control. PT OT consultation is recommended. Procedures Date of Service Date of Service: 10/17/24
[2024-10-17] MEDS: Morphine Sulfate 4 MG/ML CARTRIDGE 2 MG IVPUSH (12:58)
[2024-10-17] MEDS: amLODIPine Besylate 10 MG TABLET PO (16:26)
[2024-10-17] MEDS: Enoxaparin Sodium 40 MG/0.4 ML SYRINGE SUBCUT (16:26)
[2024-10-17] MEDS: Atorvastatin Calcium 80 MG TABLET PO (20:30)
[2024-10-17] MEDS: hydrOXYzine HCL 50 MG TABLET PO (20:30)
[2024-10-17] MEDS: Melatonin 3 MG TABLET 6 MG PO (20:30)
[2024-10-17] MEDS: carvediloL 12.5 MG TABLET PO (20:30)
[2024-10-17] MEDS: Insulin Glargine,Hum.rec.anlog 100 UNIT/ML 10 ML VIAL SUBCUT (20:30)
[2024-10-17 21:05] LABS: Glucose, Whole Blood 169 mg/dL (60-115)
[2024-10-17 21:05] LABS: Glucose, Whole Blood 147 mg/dL (60-115)
[2024-10-18 03:03] VITALS: BP 163/91; PULSE 70; RESP 20; TEMP 36.2; O2SAT 92
[2024-10-18] MEDS: Morphine Sulfate 4 MG/ML CARTRIDGE 2 MG IVPUSH (05:44)
[2024-10-18 07:40] VITALS: BP 132/64; PULSE 69; RESP 17; TEMP 36.6; O2SAT 94
[2024-10-18 08:13] LABS: Glucose, Whole Blood 173 mg/dL (60-115)
[2024-10-18] MEDS: Aspirin Enteric Coated 81 MG TABLET.DR PO (08:39)
[2024-10-18] MEDS: Clopidogrel Bisulfate 75 MG TABLET PO (08:40)
[2024-10-18] MEDS: amLODIPine Besylate 10 MG TABLET PO (08:40)
[2024-10-18] MEDS: carvediloL 12.5 MG TABLET PO (08:40)
[2024-10-18] MEDS: Sertraline HCL 100 MG TABLET PO (08:41)
[2024-10-18] MEDS: Insulin Lispro 100 UNIT/ML 3 ML VIAL SUBCUT ×2 (08:41→11:56)
[2024-10-18] MEDS: hydroCHLOROthiazide 25 MG TABLET PO (08:41)
[2024-10-18] MEDS: lisinopriL 20 MG TABLET PO (08:41)
[2024-10-18] MEDS: Insulin Glargine,Hum.rec.anlog 100 UNIT/ML 10 ML VIAL 10 UNIT SUBCUT (08:41)
[2024-10-18] MEDS: 0.9 % Sodium Chloride Flush 3 ML SYRINGE IVFLUSH (08:45)
--- NOTE | 2024-10-18 10:50 | P.DS_ITS ---
DS: Providers Provider Date of Service: 10/18/24 Date of admission: 10/15/24 14:53 Date of discharge: 10/18/24 Primary care physician: Ani Bright MD Consults: 10/15/24 14:55 Consult to Neurology Routine Consulting Provider: Neurology Lydia [facility] Reason for consultation: Right-sided deficits, ?CVA 10/17/24 08:06 Consult to Neurology Routine Consulting Provider: Neurology Lydia [facility] Reason for consultation: Acute stroke DS: Diagnosis Discharge Diagnosis (1) CVA (cerebral vascular accident): Status: Acute DS: Summary Hospital Course Hospital Course: admission hpi Chief Complaint: Dizziness and right-sided weakness Pt is a 53-year-old female with a PMH significant for HTN, hx of multiple CVAs,?depression, and anxiety who presents to the ED with?dizziness and right- sided weakness since waking this morning at 08:00. Last known well time 22:00 last night. Pt reports when she woke up this morning tried to stand up but experienced dizziness and sat back on the bed. Once dizziness subsided pt stood up in noticed her right leg was dragging and she could not lift it up. Right upper extremityfelt heavy and weak; was unable to grasp or hold onto items. Numbness in upper extremity, but not lower. Denies tingling in either extremities. Pt reports also experienced headache, blurry vision, as well as left-sided facial droop and dysarthria that have since resolved. No SOB or difficulty breathing. Denies fever, chills, nausea, vomiting, abdominal pain. No chest pain/pressure, palpitations. In the ED pt was initially hypertensive up to 184/86, vitals otherwise stable and WNL. Labs were significant for for random glucose 338, and elevated triglycerides of 278, cholesterol 235, and LDL of 139. No leukocytosis. Stable H&H. No significant electrolyte abnormalities. Renal function baseline. Troponin negative. CT?of head showing chronic right occipital and bilateral thalamic infarcts, but no acute intracranial abnormality. CTA of head and neck showed moderate focal stenosis of left MCA, origin of superior right MCA, [id number] focal stenosis in right posterior cerebral artery, and moderate to high-grade short segment stenosis in right anterior cerebral artery. But no space-occupying hemorrhage or definite evolving infarct. EKG demonstrated normal sinus rhythm without evidence of significant ST elevations or depressions. Pt was treated with aspirin. Pt will be admitted to the hospital for treatment and further evaluation of right-sided weakness and dizziness concerning for acute CVA. hospital The patient is a 53-year-old female with a past medical history significant for hypertension, multiple cerebrovascular accidents, depression, and anxiety. She p resented to the emergency department with dizziness and right-sided weakness upon waking. An initial head CT revealed chronic right occipital and bilateral thalamic infarcts. CTA of the head and neck showed no large vessel occlusion. MRI demonstrated a small focus of diffusion restriction within the left riley radiata extending into the left basal ganglia. Neurology evaluated the patient and recommended treatment with aspirin (ASA), Plavix, Lipitor, and blood pressure control. Antihypertensive medications were initially held but have since been restarted. The patient continues to experience right-sided weakness/hemiparesis. Physical therapy recommends acute inpatient rehabilitation, as she will require extensive therapy with both physical and occupational therapy. Type 2 diabetes, new onset. Hemoglobin A1C 9.9, FBS.. She has been started on Lantus 5 at night and 10 during the day, and changing to lantus 15 units daily, in addition to sliding scale insulin and diabetic diet HTN, restarted home blood pressure medication. HLD--Lipitor inplace of Rozuvostatin Time Attestation Discharge Coordination Time (in mins): 45 Quality: Safe Use of Opioids Does Pt have an Active Cancer Diagnosis on the Problem List?: No Quality: Stroke Does the patient have a stroke diagnosis?: Yes Reason for No Anti-thrombotic at DC: N/A - Med Ordered Reason for No Anticoagulant at DC: Not indicated Reason Not Initiating IV-Tpa: Not indicated Reason for No Anti-thrombotic by Day Two: N/A - Med Ordered Reason for No Statin at DC: N/A - Med Ordered Physical Exam Vital Signs: Vital Signs: Last Vital Signs Temp 97.9 F 10/18/24 07:40 Pulse 69 10/18/24 07:40 Resp 17 10/18/24 07:40 BP 132/64 10/18/24 07:40 Pulse Ox 94 10/18/24 07:40 O2 Del Method Room Air 10/18/24 03:03 O2 Flow Rate 93 10/15/24 16:07 BMI result Body Mass Index 33.9 General: AO X 3, no acute distress Resp: CTA bilateral CVS: S1,S2,RRR GI: +BS, NT, no distention Skin: No rash Neuro: right sided weakness Psych: appropriate affect Neuro: Other: She is alert and awake with normal spontaneity of speech fluency comprehension and affect. Into was performed with the help of an physiological chemist. There was mild right-sided central facial weakness. She did not lift her right arm against gravity. She lifted her right leg against gravity. Plantars were equivocal. Deep tendon reflexes were trace to absent. There was no sensory or visual extinction. Visual galvez are full. Extraocular muscles were intact. DS: Data Data Completed and Pending Labs on day of discharge: Laboratory Results - last 24 hr 10/17/24 10/17/24 10/17/24 11:04 16:05 20:10 POC Glucose 195 H 147 H 169 H 10/18/24 07:07 POC Glucose 173 H Discharge Plan Discharge Anticipated Discharge Date/Time: 10/18/24 10:53 Patient Disposition: Xfer Inpatient Rehab Fac Discharge Diagnosis: Acute CVA with right hemiparesis Referrals: Ani Bright MD [Primary Care Provider] - 1 Week Discharge Medications: New atorvastatin 80 mg Tablet 80 mg PO BEDTIME Qty: 90 0RF clopidogrel 75 mg Tablet 75 mg PO DAILY Qty: 30 0RF insulin lispro [Admelog U-100 Insulin lispro] 100 unit/mL Solution See Protocol subcut QIDACHS Qty: 10 0RF Protocol: Insulin Correction Scale Less than or equal to 110 ---- Give (units): 0 111 to 150 Give (units): 0 151 to 200 Give (units): 2 201 to 250 Give (units): 4 251 to 300 Give (units): 6 301 to 350 Give (units): 8 Greater than 350 Give (units): 10 Call MD if Blood Glucose > : 350 Rx Instructions: BG <111 0 units, 111-150 - 0 units, 151-200 2 units, 201-250 4 units, 251-300 6 units, 301-350 8 units, >350 10 units insulin glargine [Lantus U-100 Insulin] 100 unit/mL Solution 15 unit subcut DAILY Qty: 10 0RF Continued spironolactone 25 mg tablet 25 mg PO DAILY Qty: 90 1RF trazodone 150 mg tablet 150 mg PO BID PRN (Reason: Psychosis) hydroxyzine HCl 50 mg tablet 50 mg PO BEDTIME sertraline 100 mg tablet 100 mg PO DAILY doxazosin 4 mg tablet 4 mg PO BEDTIME albuterol sulfate [Ventolin HFA] 90 mcg/actuation HFA aerosol inhaler 2 inh inhalation Q6H PRN (Reason: Shortness Of Breath Or Wheezing) lisinopril-hydrochlorothiazide 20-25 mg tablet 1 tab PO DAILY carvedilol 25 mg tablet 25 mg PO BID aspirin 81 mg tablet,delayed release (DR/EC) 81 mg PO DAILY amlodipine 10 mg tablet 10 mg PO DAILY Qty: 30 0RF Discontinued rosuvastatin 40 mg tablet 40 mg PO BEDTIME Diet: Advance to usual diet Activity on Discharge: As tolerated Stand Alone Forms: Patient Portal Discharge page Print Language: German Care Plan Goals: recovery from stroke and regain function on the right side Health Concerns: acu te stroke new diabetes right sided weakness and uncontrolled HTn Plan of Treatment: You need to participate rehab activities with PT and OT Please take all blood pressure medication as directed take Insulin for diabetes Assessment: See above
[2024-10-18 11:42] VITALS: BP 162/75; PULSE 64; RESP 17; TEMP 37.2; O2SAT 97
[2024-10-18 11:48] LABS: Glucose, Whole Blood 188 mg/dL (60-115)
[2024-10-18 16:00] VITALS: BP 166/79; PULSE 75; RESP 17; TEMP 37; O2SAT 98
[2024-10-18 18:01] LABS: Glucose, Whole Blood 208 mg/dL (60-115)
== END 2024-10-18 17:30 | DRG 65 ==
LOC: HO.ED 12:29 → HO.EDOVER 15:05 → HO.IMC 17:26
PROVIDERS: Physician Assistant; Admitting Provider Student in an Organized Health Care Education/Training Program; Emergency Provider Emergency Medicine; PCP Internal Medicine; Visit Provider Internal Medicine
DX: I63.312 Cerebral infarction due to thrombosis of left middle cerebral artery (principal); G81.91 Hemiplegia, unspecified affecting right dominant side; I10 Essential (primary) hypertension; E78.5 Hyperlipidemia, unspecified; E11.9 Type 2 diabetes mellitus without complications; R29.702 NIHSS score 2; R42 Dizziness and giddiness; Z91.148 Patient's other noncompliance with medication regimen for other reason; Z79.82 Long term (current) use of aspirin; Z79.899 Other long term (current) drug therapy
CPT/HCPCS: 36415; 70450; 70496; 70498; 70551; 80048; 80061; 82947; 83036; 84484; 85025; 85027; 85610; 85730; 93005; 97112; 97116; 97162; 97166; 99285; J1171; J1650; J2270; Q9967

== ENCOUNTER → 2024-10-15 11:54 | Outpatient (BNV) | payer MEDICARE, MEDICAID, SELFPAY | PROVIDERS: Emergency Provider Emergency Medicine; PCP Internal Medicine; Visit Provider Radiology Diagnostic Radiology | DX: I65.23 Occlusion and stenosis of bilateral carotid arteries (principal) | CPT/HCPCS: 70496; 70498 ==

== ENCOUNTER → 2024-10-15 11:54 | Outpatient (BNV) | payer MEDICARE, MEDICAID, SELFPAY | PROVIDERS: Emergency Provider Emergency Medicine; PCP Internal Medicine; Visit Provider Internal Medicine Cardiovascular Disease | DX: R94.31 Abnormal electrocardiogram [ECG] [EKG] (principal); I63.9 Cerebral infarction, unspecified | CPT/HCPCS: 93010 ==

== ENCOUNTER 2024-10-15 14:53 | Outpatient (BNV) | payer MEDICARE, MEDICAID, SELFPAY | END 2024-10-16 04:37 | PROVIDERS: Admitting Provider Student in an Organized Health Care Education/Training Program; Emergency Provider Emergency Medicine; PCP Internal Medicine; Visit Provider Radiology Diagnostic Radiology | DX: I63.9 Cerebral infarction, unspecified (principal) | CPT/HCPCS: 70450 ==

== ENCOUNTER → 2024-10-15 14:53 | Outpatient (BNV) | payer MEDICARE, MEDICAID, SELFPAY | PROVIDERS: Admitting Provider Student in an Organized Health Care Education/Training Program; Emergency Provider Emergency Medicine; PCP Internal Medicine; Visit Provider Student in an Organized Health Care Education/Training Program | DX: I10 Essential (primary) hypertension (principal) | CPT/HCPCS: 99233 ==

== ENCOUNTER → 2024-10-15 14:53 | Outpatient (BNV) | payer MEDICARE, MEDICAID, SELFPAY | PROVIDERS: Admitting Provider Student in an Organized Health Care Education/Training Program; Emergency Provider Emergency Medicine; PCP Internal Medicine; Visit Provider Psychiatry & Neurology Neurology | DX: I63.312 Cerebral infarction due to thrombosis of left middle cerebral artery (principal) | CPT/HCPCS: 99222 ==

== ENCOUNTER 2024-11-18 11:06 | Outpatient (REF) | payer MEDICARE, MEDICAID, SELFPAY ==
--- OUTSIDE RECORDS SUMMARY | 2024-11-18 12:57 | XMS_ITS | Encounter Summary ---
Author Organization [employer] Address [address] [place] [address] Care Team Providers Care Director Audience Marketing Name Role Phone Leslee Recinos MD Primary Care Provider Encounter Details Date Type Department Care Team (Late st Contact Info) Description 10/21/2024 Lab Requisition [facility] - Main Lab [address] [place] [address] Leslee Recinos MD [address] [place] [phone] Encounter for other general examination Social History Tobacco Use Types Packs/Day Years Used Date Smoking Tobacco: Never Assessed Comments Unknown Sex and Gender Information Value Date Recorded Sex Assigned at Not on file Legal Sex Female 11:13 AM EST Gender Identity Not on file Sexual Orientation Not on file documented as of this encounter Plan of Treatment Not on file documented as of this encounter Procedures Procedure Name Priority Date/Time Associated Diagnosis Comments LIPASE Routine 10/21/2024 5:40 AM EDT Encounter for other general examination documented in this encounter Results * Lipase (10/21/2024 5:40 AM EDT) Lipase 36 13 - 75 unit/L LAB CHEMISTRY METHOD 10/21/2024 10:09 AM EDT [facility] Blood Venous blood specimen / Unknown Venipuncture / Unknown 10/21/2024 5:40 AM EDT 10/21/2024 8:40 AM EDT us Leslee Recinos MD LAB BLOOD ORDERABLES Final Resu lt [facility] [address] [place] [address], documented in this encounter Visit Diagnoses Diagnosis Encounter for other general examination documented in this encounter Care Teams Director Audience Marketing Relationship Specialty Start Date End Date Leslee Recinos MD [address] [place] [phone] PCP - General Hospitalist Medicine 10/19/24 documented as of this encounter
--- OUTSIDE RECORDS SUMMARY | 2024-11-18 12:57 | XMS_ITS | Clinical Summary ---
Author Organization [address] [facility] Address [address] [place] [address] Phone Care Team Providers Care Head Tennis Professional Name Role Phone Leslee Recinos MD Primary Care Provider [phone] Encounters Date Type Department Care Team Description 11/01/2024 Lab Requisition [facility] Lab [address] [place] [address] Leslee Recinos MD Encounter for other general examination 10/25/2024 Lab Requisition [facility] Lab [address] [place] [address] Leslee Recinos MD Encounter for other general examination 10/23/2024 Lab Requisition [facility] Lab [address] [place] [address] Leslee Recinos MD Encounter for other general examination 10/21/2024 Lab Requisition [facility] Lab [address] [place] [address] Leslee Recinos MD Encounter for other general examination 10/19/2024 Lab Requisition [facility] [address] [place] [address] Leslee Recinos MD Encounter for other general examination from Last 3 Months Social History Tobacco Use Types Packs/Day Years [...] 19+ 3-dose series) 1989 Cervical Cancer Screening: Pap Smear 12/21/1991 Zoster Vaccines (2 of 2) 10/07/2022 08/12/2022 COVID-19 Vaccine (4 - season) 2024 09/04/2023, 07/19/2022, 01/29/2021 Cholesterol Screening (Lipid Panel) 10/19/2024 Colorectal Cancer Screening: Colonoscopy 10/19/2024 Depression Screening 10/19/2024 HIV Screening 10/19/2024 Hepatitis C Screening 10/19/2024 Medicare Annual Wellness Visit 10/19/2024 Social Influencers of Health Screening 10/19/2024 Influenza Vaccine (Season Ended) 2025 05/27/2022, 08/29/2021 Hypertension/CHF/CAD Annual BMP Blood Test 11/01/2025 11/01/2024, 10/25/2024, 10/23/2024, Additional history exists Pneumococcal Vaccine: 50+ Years Completed 08/12/2022 Pneumococcal [...] age to complete this topic Meningococcal B Vaccine Aged Out No l onger eligible based on patient's age to complete this topic RSV Immunization Patients Under 20 months Aged Out No longer eligible based on patient's age to complete this topic Varicella Vaccines Aged Out No longer eligible based on patient's age to complete this topic Procedures Procedure Name Priority Date/Time Associated Diagnosis Comments COMPLETE BLOOD COUNT Routine 11/01/2024 6:03 AM EDT Encounter for other general examination BASIC METABOLIC PANEL Routine 11/01/2024 6:03 AM EDT Encounter for other general examination MAGNESIUM Routine 10/25/2024 5:48 AM EDT Encounter for other general examination COMPLETE BLOOD COUNT Routine 10/25/2024 5:48 AM EDT Encounter for other general examination BASIC METABOLIC PANEL Routine 10/25/2024 5:48 AM EDT Encounter for other general examination MAGNESIUM Routine 10/23/2024 11:18 AM EDT Encounter for other general examination BASIC METABOLIC PANEL Routine 10/23/2024 11:18 AM EDT Encounter for other general examination LIPASE Routine 10/21/2024 5:40 AM EDT Encounter for other general examination CBC WITH AUTO DIFFERENTIAL Routine 10/19/2024 5:40 AM EDT Encounter for other general examination MAGNESIUM Routine 10/19/2024 5:40 AM EDT Encounter for other general examination CBC AND DIFFERENTIAL Routine 10/19/2024 5:40 AM EDT Encounter for other general examination COMPREHENSIVE METABOLIC PANEL Routine 10/19/2024 5:40 AM EDT Encounter for other general examination from Last 3 Months Results * (ABNORMAL) Complete blood count (11/01/2024 6:03 AM EDT) Only the most recent of2 resultswithin the time period is included. WBC 7.7 4.8 - 10.8 K/mcL LAB HEMETOLOGY METHOD 11/01/2024 12:18 PM EDT [facility] RBC 4.50 3.80 - 4.80 M/mcL LAB HEMETOLOGY METHOD 11/01/2024 12:18 PM EDT [facility] Hemoglobin 12.3 11.5 - 16.0 g/dL LAB HEMETOLOGY METHOD 11/01/2024 12:18 PM EDT [facility] Hematocrit 38.8 35.0 - 47.0 % LAB HEMETOLOGY METHOD 11/01/2024 12:18 PM EDT [facility] MCV 85.7 79.0 - 98.0 FL LAB HEMETOLOGY METHOD 11/01/2024 12:18 PM EDT [facility] MCH 27.2 27.0 - 32.0 pcg LAB HEMETOLOGY METHOD 11/01/2024 12:18 PM EDT [facility] MCHC 31.7(L) 32.0 - 37.0 g/dL LAB HEMETOLOGY METHOD 11/01/2024 12:18 PM EDT [facility] RDW 13.2 11.0 - 15.0 % LAB HEMETOLOGY METHOD 11/01/2024 12:18 PM EDT [facility] Platelets 301 130 - 400 K/mcL LAB HEMETOLOGY METHOD 11/01/2024 12:18 PM EDT [facility] MPV 10.8 7.0 - 11.0 FL LAB HEMETOLOGY METHOD 11/01/2024 12:18 PM EDT [facility] NRBC 0.0 <1.0 % LAB HEMETOLOGY METHOD 11/01/2024 12:18 PM EDT [facility] NRBC Absolute 0.00 <0.10 K/mcL LAB HEMETOLOGY METHOD 11/01/2024 12:18 PM EDT [facility] Blood Venous blood specimen / Unknown Venipuncture / Unknown 11/01/2024 6:03 AM EDT 11/01/2024 9:49 AM EDT us Leslee Recinos MD LAB BLOOD ORDERABLES Final Resu lt [facility] [address] [place] [address], * (ABNORMAL) Basic metabolic panel (11/01/2024 6:03 AM EDT) Only the most recent of3 resultswithin the time period is included. Sodium 141 133 - 145 mmol/L LAB CHEMISTRY METHOD 11/01/2024 12:36 PM [facility] Potassium 4.5 3.5 - 5.5 mmol/L LAB CHEMISTRY METHOD 11/01/2024 12:36 PM [facility] Chloride 105 96 - 110 mmol/L LAB CHEMISTRY METHOD 11/01/2024 12:36 PM [facility] CO2 28 21 - 32 mmol/L LAB CHEMISTRY METHOD 11/01/2024 12:36 PM [facility] Anion Gap 8 3 - 11 LAB CHEMISTRY METHOD 11/01/2024 12:36 PM [facility] Glucose 106(H) 70 - 100 mg/dL LAB CHEMISTRY METHOD 11/01/2024 12:36 PM [facility] BUN 14 5 - 25 mg/dL LAB CHEMISTRY METHOD 11/01/2024 12:36 PM [facility] Creatinine 1.03 0.50 - 1.10 mg/dL LAB CHEMISTRY METHOD 11/01/2024 12:36 PM [facility] eGFR 65 >=60 mL/min/1. 73m2 LAB CHEMISTRY METHOD 11/01/2024 12:36 PM [facility] Comment:Calculation based on the??Chronic Kidney Disease Epidemiology Collaboration (CKD-EPI) equation refit??without adjustment for race. BUN/Creatinine Ratio 13.6 LAB CHEMISTRY METHOD 11/01/2024 12:36 PM [facility] Calcium 9.5 8.5 - 10.5 mg/dL LAB CHEMISTRY METHOD 11/01/2024 12:36 PM [facility] Blood Venous blood specimen / Unknown Venipuncture / Unknown 11/01/2024 6:03 AM EDT 11/01/2024 9:49 AM EDT us Leslee Recinos MD LAB BLOOD ORDERABLES Final Resu lt Performing Organization Address [facility] de Phone Number [facility] [address] [place] [address], [place] [phone] * Magnesium (10/25/2024 5:48 AM EDT) Only the most recent of3 resultswithin the time period is included. Magnesium 2.3 1.9 - 2.6 mg/dL LAB CHEMISTRY METHOD 10/25/2024 8:46 AM EDT [facility] Blood Venous blood specimen / Unknown 10/25/2024 5:48 AM EDT 10/25/2024 8:11 AM EDT us Leslee Recinos MD LAB BLOOD ORDERABLES Final Resu lt Performing Organization Address [facility] de Phone Number [facility] [address] [place] [address], [place] [phone] * Lipase (10/21/2024 5:40 AM EDT) Lipase 36 13 - 75 unit/L LAB CHEMISTRY METHOD 10/21/2024 10:09 AM EDT [facility] Blood Venous blood specimen / Unknown Venipuncture / Unknown 10/21/2024 5:40 AM EDT 10/21/2024 8:40 AM EDT us Leslee Recinos MD LAB BLOOD ORDERABLES Final Resu lt Performing Organization Address [facility] Co de Phone Number [facility] [address] [place] [address], [place] [phone] * (ABNORMAL) CBC auto differential (10/19/2024 5:40 AM EDT) [facility] WBC 7.9 4.8 - 10.8 K/mcL LAB HEMETOLOGY METHOD 10/19/2024 10:31 AM [facility] RBC 5.00(H) 3.80 - 4.80 M/mcL LAB HEMETOLOGY METHOD 10/19/2024 10:31 AM [facility] Hemoglobin 13.7 11.5 - 16.0 g/dL LAB HEMETOLOGY METHOD 10/19/2024 10:31 AM [facility] Hematocrit 41.2 35.0 - 47.0 % LAB HEMETOLOGY METHOD 10/19/2024 10:31 AM [facility] MCV 82.1 79.0 - 98.0 FL LAB HEMETOLOGY METHOD 10/19/2024 10:31 AM [facility] MCH 27.3 27.0 - 32.0 pcg LAB HEMETOLOGY METHOD 10/19/2024 10:31 AM [facility] MCHC 33.3 32.0 - 37.0 g/dL LAB HEMETOLOGY METHOD 10/19/2024 10:31 AM [facility] RDW 13.9 11.0 - 15.0 % LAB HEMETOLOGY METHOD 10/19/2024 10:31 AM [facility] Platelets 261 130 - 400 K/mcL LAB HEMETOLOGY METHOD 10/19/2024 10:31 AM [facility] MPV 10.1 7.0 - 11.0 FL LAB HEMETOLOGY METHOD 10/19/2024 10:31 AM [facility] NRBC 0.0 <1.0 % LAB HEMETOLOGY METHOD 10/19/2024 10:31 AM [facility] NRBC Absolute 0.00 <0.10 K/[facility] LAB HEMETOLOGY METHOD 10/19/2024 10:31 AM [facility] Neutrophils Relative 64.6 % LAB HEMETOLOGY METHOD 10/19/2024 10:31 AM [facility] Lymphocytes Relative 26.0 % LAB HEMETOLOGY METHOD 10/19/2024 10:31 AM [facility] Monocytes Relative 7.7 % LAB HEMETOLOGY METHOD 10/19/2024 10:31 AM [facility] Eosinophils Relative 0.9 % LAB HEMETOLOGY METHOD 10/19/2024 10:31 AM [facility] Basophils Relative 0.4 % LAB HEMETOLOGY METHOD 10/19/2024 10:31 AM [facility] Immature Granulocytes Relative 0.4 % LAB HEMETOLOGY METHOD 10/19/2024 10:31 AM [facility] Neutrophils Absolute 5.12 1.50 - 7.00 K/mcL LAB HEMETOLOGY METHOD 10/19/2024 10:31 AM [facility] Lymphocytes Absolute 2.06 1.00 - 5.00 K/mcL LAB HEMETOLOGY METHOD 10/19/2024 10:31 AM [facility] Monocytes Absolute 0.61 0.20 - 1.00 K/mcL LAB HEMETOLOGY METHOD 10/19/2024 10:31 AM [facility] Eosinophils Absolute 0.07 0.00 - 0.50 K/mcL LAB HEMETOLOGY METHOD 10/19/2024 10:31 AM [facility] Basophils Absolute 0.03 0.00 - 0.20 K/mcL LAB HEMETOLOGY METHOD 10/19/2024 10:31 AM [facility] Immature Granulocytes Absolute 0.03 0.00 - 0.03 K/mcL LAB HEMETOLOGY METHOD 10/19/2024 10:31 AM [facility] Blood Venous blood specimen / Unknown Venipuncture / Unknown 10/19/2024 5:40 AM EDT 10/19/2024 9:43 AM EDT us Leslee Recinos MD LAB BLOOD ORDERABLES Final Resu lt [facility] [address] [place] [address], * (ABNORMAL) Comprehensive metabolic panel (10/19/2024 5:40 AM EDT) Sodium 136 133 - 145 mmol/L LAB CHEMISTRY METHOD 10/19/2024 12:03 PM [facility] Potassium 4.1 3.5 - 5.5 mmol/L LAB CHEMISTRY METHOD 10/19/2024 12:03 PM [facility] Chloride 98 96 - 110 mmol/L LAB CHEMISTRY METHOD 10/19/2024 12:03 PM [facility] CO2 27 21 - 32 mmol/L LAB CHEMISTRY METHOD 10/19/2024 12:03 PM [facility] Anion Gap 11 3 - 11 LAB CHEMISTRY METHOD 10/19/2024 12:03 PM [facility] Glucose 170(H) 70 - 100 mg/dL LAB CHEMISTRY METHOD 10/19/2024 12:03 PM [facility] BUN 24 5 - 25 mg/dL LAB CHEMISTRY METHOD 10/19/2024 12:03 PM [facility] Creatinine 1.04 0.50 - 1.10 mg/dL LAB CHEMISTRY METHOD 10/19/2024 12:03 PM [facility] eGFR 64 >=60 mL/min/1. 73m2 LAB CHEMISTRY METHOD 10/19/2024 12:03 PM [facility] Comment:Calculation based on the??Chronic Kidney Disease Epidemiology Collaboration (CKD-EPI) equation refit??without adjustment for race. BUN/Creatinine Ratio 23.1 LAB CHEMISTRY METHOD 10/19/2024 12:03 PM [facility] Calcium 9.4 8.5 - 10.5 mg/dL LAB CHEMISTRY METHOD 10/19/2024 12:03 PM [facility] AST (SGOT) 19 10 - 42 unit/L LAB CHEMISTRY METHOD 10/19/2024 12:03 PM [facility] ALT (SGPT) 39 10 - 60 unit/L LAB CHEMISTRY METHOD 10/19/2024 12:03 PM [facility] Alkaline Phosphatase 103 42 - 121 unit/L LAB CHEMISTRY METHOD 10/19/2024 12:03 PM [facility] Total Protein 7.2 6.0 - 8.0 g/dL LAB CHEMISTRY METHOD 10/19/2024 12:03 PM [facility] Albumin 3.9 3.2 - 5.0 g/dL LAB CHEMISTRY METHOD 10/19/2024 12:03 PM [facility] Total Bilirubin 0.9 0.0 - 1.4 mg/dL LAB CHEMISTRY METHOD 10/19/2024 12:03 PM [facility] Blood Venous blood specimen / Unknown Venipuncture / Unknown 10/19/2024 5:40 AM EDT 10/19/2024 9:43 AM EDT us Leslee Recinos MD LAB BLOOD ORDERABLES Final Resu lt [facility] [address] [place] [address], [place] [phone] from Last 3 Months Insurance MEDICARE MEDICAID - [place] Care Teams Head Tennis Professional Relationship Specialty Start Date End Date Leslee Recinos MD [address] [place] [phone] PCP - General Hospitalist Medicine 10/19/24
--- OUTSIDE RECORDS SUMMARY | 2024-11-18 12:57 | XMS_ITS | Encounter Summary ---
Author Organization [employer] Address [address] [place] [address] Care Team Providers Care Drencher Name Role Phone Leslee Recinos MD Primary Care Provider Encounter Details Date Type Department Care Team (Late st Contact Info) Description 11/01/2024 Lab Requisition [facility] - Main Lab [address] [place] [address] Leslee Recinos MD [address] [place] [phone] Encounter for other general examination Social History [...] examination documented in this encounter Results * (ABNORMAL) Complete blood count (11/01/2024 6:03 AM EDT) WBC 7.7 4.8 - 10.8 K/[facility] LAB HEMETOLOGY METHOD 11/01/2024 12:18 PM EDT [facility] LAB RBC 4.50 3.80 - 4.80 M/[facility] LAB HEMETOLOGY METHOD 11/01/2024 12:18 PM EDT [facility] LAB Hemoglobin 12.3 11.5 - 16.0 g/dL LAB HEMETOLOGY METHOD 11/01/2024 12:18 PM EDT [facility] LAB Hematocrit 38.8 35.0 - 47.0 % LAB HEMETOLOGY METHOD 11/01/2024 12:18 PM EDT [facility] LAB MCV 85.7 79.0 - 98.0 FL LAB HEMETOLOGY METHOD 11/01/2024 12:18 PM EDT [facility] LAB MCH 27.2 27.0 - 32.0 pcg LAB HEMETOLOGY METHOD 11/01/2024 12:18 PM EDT [facility] LAB MCHC 31.7(L) 32.0 - 37.0 g/dL LAB HEMETOLOGY METHOD 11/01/2024 12:18 PM EDT [facility] LAB RDW 13.2 11.0 - 15.0 % LAB HEMETOLOGY METHOD 11/01/2024 12:18 PM EDT [facility] LAB Platelets 301 130 - 400 K/mcL LAB HEMETOLOGY METHOD 11/01/2024 12:18 PM EDT [facility] LAB MPV 10.8 7.0 - 11.0 FL LAB HEMETOLOGY METHOD 11/01/2024 12:18 PM EDT [facility] LAB NRBC 0.0 <1.0 % LAB HEMETOLOGY METHOD 11/01/2024 12:18 PM EDT [facility] LAB NRBC Absolute 0.00 <0.10 K/mcL LAB HEMETOLOGY METHOD 11/01/2024 12:18 PM EDT [facility] LAB Blood Venous blood specimen / Unknown Venipuncture / Unknown 11/01/2024 6:03 AM EDT 11/01/2024 9:49 AM EDT us Leslee Recinos MD LAB BLOOD ORDERABLES Final Resu lt [facility] [address] [place] [address], * (ABNORMAL) Basic metabolic panel (11/01/2024 6:03 AM EDT) Sodium 141 133 - 145 mmol/L LAB CHEMISTRY METHOD 11/01/2024 12:36 PM [facility] LAB Potassium 4.5 3.5 - 5.5 mmol/L LAB CHEMISTRY METHOD 11/01/2024 12:36 PM [facility] LAB Chloride 105 96 - 110 mmol/L LAB CHEMISTRY METHOD 11/01/2024 12:36 PM [facility] LAB CO2 28 21 - 32 mmol/L LAB CHEMISTRY METHOD 11/01/2024 12:36 PM [facility] LAB Anion Gap 8 3 - 11 LAB CHEMISTRY METHOD 11/01/2024 12:36 PM [facility] LAB Glucose 106(H) 70 - 100 mg/dL LAB CHEMISTRY METHOD 11/01/2024 12:36 PM [facility] LAB BUN 14 5 - 25 mg/dL LAB CHEMISTRY METHOD 11/01/2024 12:36 PM [facility] LAB Creatinine 1.03 0.50 - 1.10 mg/dL LAB CHEMISTRY METHOD 11/01/2024 12:36 PM [facility] LAB eGFR 65 >=60 mL/min/1. 73m2 LAB CHEMISTRY METHOD 11/01/2024 12:36 PM [facility] LAB Comment:Calculation based on the??Chronic Kidney Disease Epidemiology Collaboration (CKD-EPI) equation refit??without adjustment for race. BUN/Creatinine Ratio 13.6 LAB CHEMISTRY METHOD 11/01/2024 12:36 PM [facility] LAB Calcium 9.5 8.5 - 10.5 mg/dL LAB CHEMISTRY METHOD 11/01/2024 12:36 PM [facility] LAB Blood Venous blood specimen / Unknown Venipuncture / Unknown 11/01/2024 6:03 AM EDT 11/01/2024 9:49 AM EDT us Leslee Recinos MD LAB BLOOD ORDERABLES Final Resu lt [facility] H[facility] LAB [address] [place] [address], documented in this encounter Visit Diagnoses Diagnosis Encounter for other general examination documented in this encounter Care Teams Drencher Relationship Specialty Start Date End Date Leslee Recinos MD [address] [place] [phone] PCP - General Hospitalist Medicine 10/19/24 documented as of this encounter
--- OUTSIDE RECORDS SUMMARY | 2024-11-18 12:57 | XMS_ITS | Clinical Summary ---
Author Organization [employer] Address [address] [facility] [address] [place] [address] Care Team Providers Care Epoxy Coatings Installer Name Role Phone Unavailable Primary Care Provider Unavailabl e Encounters Date Type Department Care Team Description 09/02/2024 9:00 AM EST Office Visit [facility] [address] [place] [address] Ab, Irene, OD Presbyopia (Primary Dx) from [...] patient's age to complete this topic Insurance [facility]
--- OUTSIDE RECORDS SUMMARY | 2024-11-18 12:57 | XMS_ITS | Encounter Summary ---
Author Organization [employer] Address [address] [place] [address] Care Team Providers Care Automotive Service Advisor Name Role Phone Leslee Recinos MD Primary Care Provider Encounter Details Date Type Department Care Team (Late st Contact Info) Description 10/25/2024 Lab Requisition [facility] - Main Lab [address] [place] [address] Leslee Recinos MD [address] [place] [phone] Encounter for other general examination Social History [...] Associated Diagnosis Comments COMPLETE BLOOD COUNT Routine 10/25/2024 5:48 AM EDT Encounter for other general examination MAGNESIUM Routine 10/25/2024 5:48 AM EDT Encounter for other general examination BASIC METABOLIC PANEL Routine 10/25/2024 5:48 AM EDT Encounter for other general examination documented in this encounter Results * Magnesium (10/25/2024 5:48 AM EDT) Magnesium 2.3 1.9 - 2.6 mg/dL LAB CHEMISTRY METHOD 10/25/2024 8:46 AM EDT [facility] LAB Blood Venous blood specimen / Unknown 10/25/2024 5:48 AM EDT 10/25/2024 8:11 AM EDT us Leslee Recinos MD LAB BLOOD ORDERABLES Final Resu lt [facility] LAB [address] [place] [address], [place] [phone] * (ABNORMAL) Complete blood count (10/25/2024 5:48 AM EDT) WBC 5.9 4.8 - 10.8 K/mcL LAB HEMETOLOGY METHOD 10/25/2024 8:40 AM EDT [facility] LAB RBC 4.80 3.80 - 4.80 M/mcL LAB HEMETOLOGY METHOD 10/25/2024 8:40 AM EDT [facility] LAB Hemoglobin 12.9 11.5 - 16.0 g/dL LAB HEMETOLOGY METHOD 10/25/2024 8:40 AM EDT [facility] LAB Hematocrit 40.0 35.0 - 47.0 % LAB HEMETOLOGY METHOD 10/25/2024 8:40 AM EDT [facility] LAB MCV 83.7 79.0 - 98.0 FL LAB HEMETOLOGY METHOD 10/25/2024 8:40 AM EDT [facility] LAB MCH 27.0 27.0 - 32.0 pcg LAB HEMETOLOGY METHOD 10/25/2024 8:40 AM EDT [facility] LAB MCHC 32.3 32.0 - 37.0 g/dL LAB HEMETOLOGY METHOD 10/25/2024 8:40 AM EDT [facility] LAB RDW 13.1 11.0 - 15.0 % LAB HEMETOLOGY METHOD 10/25/2024 8:40 AM EDT [facility] LAB Platelets 287 130 - 400 K/mcL LAB HEMETOLOGY METHOD 10/25/2024 8:40 AM EDT [facility] LAB MPV 11.2(H) 7.0 - 11.0 FL LAB HEMETOLOGY METHOD 10/25/2024 8:40 AM EDT [facility] LAB NRBC 0.0 <1.0 % LAB HEMETOLOGY METHOD 10/25/2024 8:40 AM EDT [facility] LAB NRBC Absolute 0.00 <0.10 K/mcL LAB HEMETOLOGY METHOD 10/25/2024 8:40 AM EDT [facility] LAB Blood Venous blood specimen / Unknown 10/25/2024 5:48 AM EDT 10/25/2024 8:11 AM EDT us Leslee Recinos MD LAB BLOOD ORDERABLES Final Resu lt [facility] LAB [address] [place] [address], * (ABNORMAL) Basic metabolic panel (10/25/2024 5:48 AM EDT) Sodium 135 133 - 145 mmol/L LAB CHEMISTRY METHOD 10/25/2024 8:46 AM [facility] LAB Potassium 4.1 3.5 - 5.5 mmol/L LAB CHEMISTRY METHOD 10/25/2024 8:46 AM [facility] LAB Chloride 98 96 - 110 mmol/L LAB CHEMISTRY METHOD 10/25/2024 8:46 AM [facility] LAB CO2 28 21 - 32 mmol/L LAB CHEMISTRY METHOD 10/25/2024 8:46 AM [facility] LAB Anion Gap 9 3 - 11 LAB CHEMISTRY METHOD 10/25/2024 8:46 AM [facility] LAB Glucose 157(H) 70 - 100 mg/dL LAB CHEMISTRY METHOD 10/25/2024 8:46 AM [facility] LAB BUN 24 5 - 25 mg/dL LAB CHEMISTRY METHOD 10/25/2024 8:46 AM EDT [facility] LAB Creatinine 1.10 0.50 - 1.10 mg/dL LAB CHEMISTRY METHOD 10/25/2024 8:46 AM EDT [facility] LAB eGFR 60 >=60 mL/min/1. 73m2 LAB CHEMISTRY METHOD 10/25/2024 8:46 AM EDT [facility] LAB Comment:Calculation based on the??Chronic Kidney Disease Epidemiology Collaboration (CKD-EPI) equation refit??without adjustment for race. BUN/Creatinine Ratio 21.8 LAB CHEMISTRY METHOD 10/25/2024 8:46 AM EDT [facility] LAB Calcium 9.8 8.5 - 10.5 mg/dL LAB CHEMISTRY METHOD 10/25/2024 8:46 AM T [facility] LAB Blood Venous blood specimen / Unknown 10/25/2024 5:48 AM EDT 10/25/2024 8:11 AM EDT us Leslee Recinos MD LAB BLOOD ORDERABLES Final Resu lt [facility] [address] [place] [address], documented in this encounter Visit Diagnoses Diagnosis Encounter for other general examination documented in this encounter Care Teams Automotive Service Advisor Relationship Specialty Start Date End Date Leslee Recinos MD [address] [place] [phone] PCP - General Hospitalist Medicine 10/19/24 documented as of this encounter
--- OUTSIDE RECORDS SUMMARY | 2024-11-18 12:57 | XMS_ITS | Clinical Summary ---
Author Organization [facility] Address [address] [place] [address] Phone Care Team Providers Care Graduate Recruiter Name Role Phone Ani Bright MD Primary [...] Last Done Comments Breast Cancer Screening 1970 Hepatitis B Vaccine (1 of 3 - 19+ 3-dose series) 12/20 Pneumococcal Vaccine: 50+ Years (1 of 2 - PCV) 990 Colorectal Cancer Screening: Annual FOBT 12/21/2019 Colorectal Cancer Screening: Colonoscopy 12/21/2019 Colorectal Cancer Screening: Sigmoidoscopy 12/21/2019 Influenza Vaccine (Season Ended) 2025 Insurance Medicaid [place] Medicaid [place] Care Teams Graduate Recruiter Relationship Specialty Start Date End Date Ani Bright MD [address] [facility] [address] [place], [place] PCP - General Internal Medicine 02/28/21
--- OUTSIDE RECORDS SUMMARY | 2024-11-18 12:57 | XMS_ITS | Encounter Summary ---
Author Organization [employer] Address [address] [place] [address] Care Team Providers Care Slat Grader Name Role Phone Leslee Recinos MD Primary Care Provider Encounter Details Date Type Department Care Team (Late st Contact Info) Description 10/23/[address] [facility] - Main Lab [address] [place] [address] Leslee Recinos MD [address] [place] [phone] Encounter for other general examination Social History [...] Procedure Name Priority Date/Time Associated Diagnosis Comments MAGNESIUM Routine 10/23/2024 11:18 AM EDT Encounter for other general examination BASIC METABOLIC PANEL Routine 10/23/2024 11:18 AM EDT Encounter for other general examination documented in this encounter Results * Magnesium (10/23/2024 11:18 AM EDT) Magnesium 2.0 1.9 - 2.6 mg/dL LAB CHEMISTRY METHOD 10/23/2024 1:30 PM EDT [facility] Blood Venous blood specimen / Unknown Venipuncture / Unknown 10/23/2024 11:18 AM EDT 10/23/2024 12:58 PM EDT Leslee Recinos MD LAB BLOOD ORDERABLES Final Resu lt [facility] LAB [address] [place] [address], * (ABNORMAL) Basic metabolic panel (10/23/2024 11:18 AM EDT) Sodium 137 133 - 145 mmol/L LAB CHEMISTRY METHOD 10/23/2024 1:30 PM [facility] LAB Potassium 4.5 3.5 - 5.5 mmol/L LAB CHEMISTRY METHOD 10/23/2024 1:30 PM [facility] LAB Chloride 101 96 - 110 mmol/L LAB CHEMISTRY METHOD 10/23/2024 1:30 PM [facility] LAB CO2 29 21 - 32 mmol/L LAB CHEMISTRY METHOD 10/23/2024 1:30 PM [facility] LAB Anion Gap 7 3 - 11 LAB CHEMISTRY METHOD 10/23/2024 1:30 PM [facility] LAB Glucose 148(H) 70 - 100 mg/dL LAB CHEMISTRY METHOD 10/23/2024 1:30 PM [facility] LAB BUN 27(H) 5 - 25 mg/dL LAB CHEMISTRY METHOD 10/23/2024 1:30 PM [facility] LAB Creatinine 1.16(H) 0.50 - 1.10 mg/dL LAB CHEMISTRY METHOD 10/23/2024 1:30 PM [facility] LAB eGFR 56(L) >=60 mL/min/1. 73m2 LAB CHEMISTRY METHOD 10/23/2024 1:30 PM [facility] LAB Comment:Calculation based on the??Chronic Kidney Disease Epidemiology Collaboration (CKD-EPI) equation refit??without adjustment for race. BUN/Creatinine Ratio 23.3 LAB CHEMISTRY METHOD 10/23/2024 1:30 PM [facility] LAB Calcium 10.0 8.5 - 10.5 mg/dL LAB CHEMISTRY METHOD 10/23/2024 1:30 PM EDT [facility] LAB Blood Venous blood specimen / Unknown Venipuncture / Unknown 10/23/2024 11:18 AM EDT 10/23/2024 12:58 PM EDT us Leslee Recinos MD LAB BLOOD ORDERABLES Final Resu lt [facility] LAB [address] [place] [address], [place] [phone] documented in this encounter Visit Diagnoses Diagnosis Encounter for other general examination documented in this encounter Care Teams Slat Grader Relationship Specialty Start Date End Date Leslee Recinos MD [address] [place] [phone] PCP - General Hospitalist Medicine 10/19/24 documented as of this encounter
--- OUTSIDE RECORDS SUMMARY | 2024-11-18 12:57 | XMS_ITS | Encounter Summary ---
Author Organization [employer] Address [address] [place] [address] Care Team Providers Care Senior Vice President Name Role Phone Leslee Recinos MD Primary Care Provider Encounter Details Date Type Department Care Team (Late st Contact Info) Description 10/19/2024 Lab Requisition [facility] - Main Lab [address] [facility] [place] [address] Leslee Recinos MD [address] [place] [phone] Encounter for other general examination Social History [...] Procedure Name Priority Date/Time Associated Diagnosis Comments CBC WITH AUTO DIFFERENTIAL Routine 10/19/2024 5:40 AM EDT Encounter for other general examination CBC AND DIFFERENTIAL Routine 10/19/2024 5:40 AM EDT Encounter for other general examination MAGNESIUM Routine 10/19/2024 5:40 AM EDT Encounter for other general examination COMPREHENSIVE METABOLIC PANEL Routine 10/19/2024 5:40 AM EDT Encounter for other general examination documented in this encounter Results * (ABNORMAL) CBC auto differential (10/19/2024 5:40 AM EDT) WBC 7.9 4.8 - 10.8 K/[facility] LAB HEMETOLOGY METHOD 10/19/2024 10:31 AM [facility] LAB RBC 5.00(H) 3.80 - 4.80 M/mcL LAB HEMETOLOGY METHOD 10/19/2024 10:31 AM [facility] LAB Hemoglobin 13.7 11.5 - 16.0 g/dL LAB HEMETOLOGY METHOD 10/19/2024 10:31 AM [facility] LAB Hematocrit 41.2 35.0 - 47.0 % LAB HEMETOLOGY METHOD 10/19/2024 10:31 AM [facility] LAB MCV 82.1 79.0 - 98.0 FL LAB HEMETOLOGY METHOD 10/19/2024 10:31 AM [facility] LAB MCH 27.3 27.0 - 32.0 pcg LAB HEMETOLOGY METHOD 10/19/2024 10:31 AM [facility] LAB MCHC 33.3 32.0 - 37.0 g/dL LAB HEMETOLOGY METHOD 10/19/2024 10:31 AM [facility] LAB RDW 13.9 11.0 - 15.0 % LAB HEMETOLOGY METHOD 10/19/2024 10:31 AM [facility] LAB Platelets 261 130 - 400 K/mcL LAB HEMETOLOGY METHOD 10/19/2024 10:31 AM [facility] LAB MPV 10.1 7.0 - 11.0 FL LAB HEMETOLOGY METHOD 10/19/2024 10:31 AM [facility] LAB NRBC 0.0 <1.0 % LAB HEMETOLOGY METHOD 10/19/2024 10:31 AM [facility] LAB NRBC Absolute 0.00 <0.10 K/mcL LAB HEMETOLOGY METHOD 10/19/2024 10:31 AM [facility] LAB Neutrophils Relative 64.6 % LAB HEMETOLOGY METHOD 10/19/2024 10:31 AM [facility] LAB Lymphocytes Relative 26.0 % LAB HEMETOLOGY METHOD 10/19/2024 10:31 AM [facility] LAB Monocytes Relative 7.7 % LAB HEMETOLOGY METHOD 10/19/2024 10:31 AM [facility] LAB Eosinophils Relative 0.9 % LAB HEMETOLOGY METHOD 10/19/2024 10:31 AM [facility] Basophils Relative 0.4 % LAB HEMETOLOGY METHOD 10/19/2024 10:31 AM [facility] LAB Immature Granulocytes Relative 0.4 % LAB HEMETOLOGY METHOD 10/19/2024 10:31 AM [facility] LAB Neutrophils Absolute 5.12 1.50 - 7.00 K/mcL LAB HEMETOLOGY METHOD 10/19/2024 10:31 AM [facility] LAB Lymphocytes Absolute 2.06 1.00 - 5.00 K/mcL LAB HEMETOLOGY METHOD 10/19/2024 10:31 AM [facility] LAB Monocytes Absolute 0.61 0.20 - 1.00 K/mcL LAB HEMETOLOGY METHOD 10/19/2024 10:31 AM [facility] LAB Eosinophils Absolute 0.07 0.00 - 0.50 K/mcL LAB HEMETOLOGY METHOD 10/19/2024 10:31 AM [facility] LAB Basophils Absolute 0.03 0.00 - 0.20 K/mcL LAB HEMETOLOGY METHOD 10/19/2024 10:31 AM [facility] LAB Immature Granulocytes Absolute 0.03 0.00 - 0.03 K/mcL LAB HEMETOLOGY METHOD 10/19/2024 10:31 AM [facility] LAB Blood Venous blood specimen / Unknown Venipuncture / Unknown 10/19/2024 5:40 AM EDT 10/19/2024 9:43 AM EDT us Leslee Recinos MD LAB BLOOD ORDERABLES Final Resu lt [facility] [address] [place] [address], [place] [phone] * Magnesium (10/19/2024 5:40 AM EDT) Pathologist [facility] Magnesium 2.1 1.9 - 2.6 mg/dL LAB CHEMISTRY METHOD 10/19/2024 12:03 PM EDT [facility] LAB Blood Venous blood specimen / Unknown Venipuncture / Unknown 10/19/2024 5:40 AM EDT 10/19/2024 9:43 AM EDT us Leslee Recinos MD LAB BLOOD ORDERABLES Final Resu lt Performing Organization Address City/[facility]/ZIP Co de Phone Number [facility] [address] [place] [address], [place] [phone] * (ABNORMAL) Comprehensive metabolic panel (10/19/2024 5:40 AM EDT) [facility] Sodium 136 133 - 145 mmol/L LAB CHEMISTRY METHOD 10/19/2024 12:03 PM [facility] Potassium 4.1 3.5 - 5.5 mmol/L LAB CHEMISTRY METHOD 10/19/2024 12:03 PM [facility] Chloride 98 96 - 110 mmol/L LAB CHEMISTRY METHOD 10/19/2024 12:03 PM [facility] LAB CO2 27 21 - 32 mmol/L LAB CHEMISTRY METHOD 10/19/2024 12:03 PM [facility] Anion Gap 11 3 - 11 LAB CHEMISTRY METHOD 10/19/2024 12:03 PM [facility] LAB Glucose 170(H) 70 - 100 mg/dL LAB CHEMISTRY METHOD 10/19/2024 12:03 PM [facility] BUN 24 5 - 25 mg/dL LAB CHEMISTRY METHOD 10/19/2024 12:03 PM [facility] LAB Creatinine 1.04 0.50 - 1.10 mg/dL LAB CHEMISTRY METHOD 10/19/2024 12:03 PM [facility] LAB eGFR 64 >=60 mL/min/1. 73m2 LAB CHEMISTRY METHOD 10/19/2024 12:03 PM [facility] LAB Comment:Calculation based on the??Chronic Kidney Disease Epidemiology Collaboration (CKD-EPI) equation refit??without adjustment for race. BUN/Creatinine Ratio 23.1 LAB CHEMISTRY METHOD 10/19/2024 12:03 PM [facility] Calcium 9.4 8.5 - 10.5 mg/dL LAB CHEMISTRY METHOD 10/19/2024 12:03 PM [facility] AST (SGOT) 19 10 - 42 unit/L LAB CHEMISTRY METHOD 10/19/2024 12:03 PM [facility] ALT (SGPT) 39 10 - 60 unit/L LAB CHEMISTRY METHOD 10/19/2024 12:03 PM [facility] Alkaline Phosphatase 103 42 - 121 unit/L LAB CHEMISTRY METHOD 10/19/2024 12:03 PM [facility] Total Protein 7.2 6.0 - 8.0 g/dL LAB CHEMISTRY METHOD 10/19/2024 12:03 PM [facility] Albumin 3.9 3.2 - 5.0 g/dL LAB CHEMISTRY METHOD 10/19/2024 12:03 PM [facility] Total Bilirubin 0.9 0.0 - 1.4 mg/dL LAB CHEMISTRY METHOD 10/19/2024 12:03 PM [facility] Blood Venous blood specimen / Unknown Venipuncture / Unknown 10/19/2024 5:40 AM EDT 10/19/2024 9:43 AM EDT us Rami A Ashkar MD LAB BLOOD ORDERABLES Final Resu lt [facility] [address] [place] [address], documented in this encounter Visit Diagnoses Diagnosis Encounter for other general examination documented in this encounter Care Teams Senior Vice President Relationship Specialty Start Date End Date Leslee Recinos MD [address] [place] [phone] PCP - General Hospitalist Medicine 10/19/24 documented as of this encounter
[2024-11-18 14:03] LABS: MANUAL DIFF FLAG NO
[2024-11-18 14:16] LABS: Basophils Percent Auto 0.6 % (0-2); Eosinophils Absolute Auto 0.1 X10*3/uL (0.0-0.4); Eosinophils Percent Auto 1.6 % (0-4); Hematocrit 38.3 % (37.0-47.0); Hemoglobin 12.5 g/dl (12.0-16.0); Imm Gran Abs Auto 0.07 X10*3/uL (0.00-0.03); Lymphocytes Absolute Auto 1.6 X10*3/uL (1.2-4.9); Lymphocytes Percent Auto 22.9 % (20-40); Mean Corpuscular HGB Conc 32.6 g/dl (31.0-35.0); Mean Corpuscular Hemoglobin 26.7 pg (27.0-33.0); Mean Corpuscular Volume 81.8 fL (80.0-98.0); Mean Platelet Volume 10.9 fL (9.4-12.3); Monocytes Absolute Auto 0.5 X10*3/uL (0.1-1.2); Monocytes Percent Auto 6.6 % (2-11); Neutrophils Absolute Auto 4.6 x10*3/uL (2.0-8.3); Neutrophils Percent Auto 67.3 % (45-73); Platelet Count 263 X10*3/uL (160-400); Red Blood Count 4.68 X10*6/uL (4.20-5.50); White Blood Count 6.8 X10*3/uL (4.8-10.8)
[2024-11-18 14:33] LABS: Alanine Aminotransferase 69 U/L (0-31); Albumin Level 4.4 g/dL (3.5-5.0); Alkaline Phosphatase 108 U/L (39-117); Anion Gap 13 (12-20); Aspartate Amino Transferase 34 U/L (5-31); Bilirubin Total 0.3 mg/dL (0.0-1.0); Blood Urea Nitrogen 18 mg/dL (9-16); Calcium 9.9 mg/dL (8.4-10.2); Carbon Dioxide 28 mmol/L (22-29); Chloride 102 mmol/L (96-108); Cholesterol 179 mg/dL (<200); Estimated Glomerular Filt Rate 52; Glucose Random 161 mg/dL (60-115); HDL Cholesterol 45 mg/dL (>40); Potassium 4.8 mmol/L (3.3-5.1); Sodium 138 mmol/L (135-145); Total Protein 7.7 g/dL (6.5-8.0)
[2024-11-18 14:36] LABS: Creatinine Urine 187.29 mg/dL; Microalbum/Creatinine Ratio Ur 6.4 ug/mg cr (<30)
[2024-11-18 14:47] LABS: LDL Cholesterol Calculated 98 mg/dL (<100); Triglycerides 183 mg/dL (<150)
== END 2024-11-18 11:07 | disposition home or self-care (01) ==
LOC: HO.10HDL 11:06
PROVIDERS: Visit Provider Internal Medicine
DX: E11.9 Type 2 diabetes mellitus without complications (principal); E78.00 Pure hypercholesterolemia, unspecified; F33.41 Major depressive disorder, recurrent, in partial remission; I10 Essential (primary) hypertension; I69.351 Hemiplegia and hemiparesis following cerebral infarction affecting right dominant side
CPT/HCPCS: 36415; 80053; 80061; 82043; 82570; 85025

== ENCOUNTER 2024-12-05 12:18 | Emergency (ER) | payer MEDICARE, MEDICAID, SELFPAY ==
--- NOTE | ~2024-12-05 | US_ITS ---
CLINICAL HISTORY: arm pain, swelling Venous duplex ultrasound right upper extremity Comparison: None Findings: Accessible deep venous segments are fully compressible with normal Doppler color flow and spectral tracings. IMPRESSION: 1. Negative for right upper extremity deep vein thrombosis. This document has been electronically signed by: Eboni La MD on 12/05/2024 15:47:52
--- NOTE | ~2024-12-05 | XR_ITS ---
CLINICAL HISTORY: atraumatic R shoulder pain 3 view right shoulder Comparison: None Findings: Bones intact. No dislocations. No significant arthritic change. No erosions. No radiopaque foreign body. IMPRESSION: 1. No acute findings This document has been electronically signed by: Eboni La MD on 12/05/2024 13:36:27
--- NOTE | ~2024-12-05 | CT_ITS ---
CLINICAL HISTORY: dizziness, hx CVAs CT head without contrast Comparison: CT/DE/SR - CT HEAD FOR STROKE - 10/16/24 15:04 EDT Findings: No intra-axial mass, midline shift, hydrocephalus, or acute hemorrhage. Small focus of chronic infarction within the right occipital lobe and small chronic lacunar infarct within the left thalamus without change. Remaining brain volume is age-appropriate. There is mild white matter disease. The visualized paranasal sinuses and mastoid air cells are normal. The orbits are within normal limits. There is no acute fracture. IMPRESSION: 1. No acute intracranial findings. This document has been electronically signed by: Eboni La MD on 12/05/2024 14:07:50
[2024-12-05 12:20] VITALS: BP 158/82; PULSE 85; RESP 18; TEMP 36.3; O2SAT 97; BMI 31.7
--- NOTE | 2024-12-05 12:20 | ED_ITS ---
HPI - General Adult General Chief complaint: Extremity Problem Stated complaint: Pain R shoulder/arm, dizziness Time Seen by Provider: 12/05/24 12:58 Source: patient Mode of arrival: ambulatory Limitations: language barrier (Omani-speaking medical education manager utilized) History of Present Illness ED Provider: moon pelletier np HPI narrative: Patient is a 53-year-old female who presents to the emergency department for evaluation. She had a CVA in September of 2024 for which she was seen at this hospital and she was discharged to a rehab facility for approximately 1 month and has otherwise been doing well at home. Her primary complaint is severe pain diffusely throughout her shoulder with onset 10 days ago no precipitating injury. She states that she had a CVA in September of 2024 where she experienced similar pain in the right shoulder but was much more mild than what she is currently experiencing. Since the CVA she does admit she has had ongoing pain but typically 2/10, currently she endorses the pain to be 200/10. She has been taking Tylenol and ibuprofen without relief. She was advised by [facility] in the home today that she should not be taking ibuprofen since she was started on Plavix after her CVA in September. post CVA she admits that she has been able to forward extent/elevate to approximately 45 degrees but now is able to minimally elevated the arm due to severe pain in the shoulder. She also states that she is having swelling in the right hand/wrist since the onset of the pain which is new for her. She additionally states that yesterday morning as well as this morning she is experiencing episodic dizziness that is positional when she is standing or getting out of bed lasting sec at a time. She does admit that with her dizziness associated with prior CVAs has presented episodic and similar to this. States that she did not come to emergency department yesterday as nobody would bring her. She thought to call 911 in the evening but ultimately she fell asleep. Today she decided to drive herself to the emergency department. She feels generally more weak than usual, states that since her CVA in September she has been ambulatory with the use of a cane and dragging of the right lower extremity, but she felt more unstable today requiring assistance from her daughter for ambulation. Related Data Home Medications ?Medication ?Instructions ?Recorded ?Confirmed doxazosin 4 mg tablet 4 mg PO BEDTIME 05/27/22 10/15/24 hydroxyzine HCl 50 mg tablet 50 mg PO BEDTIME 10/29/22 10/15/24 aspirin 81 mg tablet,delayed 81 mg PO DAILY 12/10/22 10/15/24 release albuterol sulfate 90 mcg/actuation 2 inh inhalation Q6H PRN Shortness 04/16/24 10/15/24 aerosol inhaler (Ventolin HFA) Of Breath Or Wheezing carvedilol 25 mg tablet 25 mg PO BID 04/16/24 10/15/24 lisinopril 20 1 tab PO DAILY 04/16/24 10/15/24 mg-hydrochlorothiazide 25 mg tablet trazodone 150 mg tablet 150 mg PO BID PRN Psychosis 08/13/24 10/15/24 sertraline 100 mg tablet 100 mg PO DAILY 10/15/24 10/15/24 Previous Rx's ?Medication ?Instructions ?Recorded amlodipine 10 mg tablet 10 mg PO DAILY #30 tabs 08/10/24 spironolactone 25 mg tablet 25 mg PO DAILY #90 tabs 08/12/24 atorvastatin 80 mg tablet 80 mg PO BEDTIME #90 tabs 10/18/24 clopidogrel 75 mg tablet 75 mg PO DAILY #30 tabs 10/18/24 insulin glargine 100 unit/mL 15 unit (0.15 mL) subcut DAILY #10 10/18/24 subcutaneous solution (Lantus mL U-100 Insulin) insulin lispro 100 unit/mL See Protocol subcut QIDACHS #10 mL 10/18/24 subcutaneous solution (Admelog U-100 Insulin lispro) oxycodone 10 mg tablet 10 mg PO Q6H PRN pain #10 tabs 12/05/24 Allergies Allergy/AdvReac Type Severity Reaction Status Date / Time No Known Allergies Allergy Verified 12/05/24 12:22 [No Known Allergies*] [facility] Past Medical History Medical History TIA (transient ischemic attack) CVA (cerebral vascular accident) Hypertension FH: breast cancer in first degree relative Abnormal Pap smear of cervix Ovarian cyst Depression Surgical History H/O prior ablation treatment Hx of tubal ligation History of removal of ovarian cyst Family History Family History Paternal Aunt Breast cancer Sister Breast cancer, Onset Age: 46 Social History Social History Household Members: Children Housing: Apartment Housing Other:: lives with adult child in 3rd floor apt Do you presently have visiting nurse or other home services: No Alcohol intake: never Comment: Pt refuses alarms-ambulating independently Patient Tobacco Use Status: Never used Tobacco e-Cigarette/Vaping Use: Never Used Advance Directives: Yes Advance Directives on File: Yes Advance Directives Date on File: 05/09/21 service: No Current occupational status: disabled Gender identity: Female Physical Exam ED Vital Signs: Vital Signs - 24 hr 12/05/24 12:20 12/05/24 14:23 12/05/24 15:56 Temperature 97.3 F Pulse Rate 85 66 58 Respiratory Rate 18 18 Blood Pressure 158/82 H 153/76 H 151/75 H Pulse Oximetry 97 99 Oxygen Delivery Method Room Air Room Air 12/05/24 15:57 12/05/24 15:57 12/05/24 16:04 Temperature 97.7 F Pulse Rate 64 77 58 Respiratory Rate 15 Blood Pressure 151/81 H 153/81 H 151/75 H Pulse Oximetry 92 Oxygen Delivery Method Room Air BMI result Body Mass Index 31.7 Appearance: Alert.?Oriented to person, place and time. No acute distress.?Normal affect. Eyes: Pupils equal, round and reactive to light.? No nystagmus. ENT: Pharynx normal.?? Neck: Normal inspection.? Neck supple.??Full range of motion. CVS: Heart sounds normal. Normal heart rate and rhythm.? Pulses normal.?? Respiratory: No respiratory distress.? Lung sounds clear to auscultation bilaterally?? Abdomen: Soft and non-tender. Normoactive bowel sounds. ?? Skin: Skin warm and dry.? Normal skin color.? Extremities: No lower extremity edema.? No calf ttp. Localized edema to the right hand and digits. Neuro: CN II-XII intact, normal sensory observed, normal coordination observed. Level of consciousness: Appropriate for age. Motor strength: Proximal right upper extremity 1/5, distal right upper extremity 1/5, proximal left upper extremity 5 /5, distal left upper extremity 5 /5, right lower extremity 1/5, left lower extremity 5 /5.? Speech: Normal, Gait: Dragging of the right lower extremity baseline per patient and family use of a cane, Bighkf-[id number] test: Normal on the left unable to perform on the right, [id number]-[id number] test: Normal on the left unable to perform on the right. Cerebellar function testing on the left side is normal, due to her residual weakness on the right she is unable to perform testing. Test of skew testing is negative bilaterally. She has no nystagmus. No associated headache or neck pain. Speech is clear. Course Course Course Narrative: 12/05/24 1221 WENDY Johns This is a Rapid Medical Examination (RME) performed by Felix Kent PA-C in triage. Full HPI, ROS, assessment and treatment plan per primary provider in the Main ED. 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 pain is worse w/ movement, occasionally radiates to right wrist/hand. pain is making it diffcult to taking motrin - was recently told she cannot take this medication anymore as she is on AC. pt was admitted to our facility in September 2024 for CVA then completed 1 mo of rehab. also reports two episodes of dizziness this morning which have since resolved. also reports brief episode of chest pain this morning with deep breathing which has since resolved. PE/vitals: well appearing, pain on abduction of R shoulder, noted R sided weakness which appears to be patient's baseline s/p CVA Plan: labs, ekg, imaging Reevaluation(s) Reevaluation #1: XR imaging of the shoulder is without acute pathology, venous duplex ultrasound is without evidence of DVT. She is now able to move the right upper extremity better near close to her baseline when compared to prior evaluation. No new neurological findings on evaluation. Pain has improved after oxycodone currently 11/27. Reviewed this is my attending Dr. Lopez, advises plan of care for discharge home, outpatient management of pain, will give referral for follow-up with orthopedics. Time: 16:20 Medications Administered Discontinued Medications Generic Name Dose Route Start Last Admin Trade Name Freq PRN Reason Stop Dose Admin Oxycodone HCl 5 mg 12/05/24 13:54 12/05/24 14:13 Oxycodone Hcl Immed Release 5 Mg Tablet PO 12/05/24 13:55 5 mg ONCE ONE Administration Oxycodone HCl 5 mg 12/05/24 14:05 12/05/24 14:13 Oxycodone Hcl Immed Release 5 Mg Tablet PO 12/05/24 14:06 5 mg ONCE ONE Administration Medical Decision Making Medical Decision Making [facility] Narrative: Patient is a 53-year-old female with past medical history of hypertension, obesity, TIA, CVA recent in September of 2024 with right-sided deficit on dual antiplatelet therapy with Plavix and aspirin presents emergency department for evaluation of her pain over the past 3 days intermittent swelling to the right hand/wrist as per HPI, advised by [facility] today she is not able to be taking ibuprofen secondary to her CVA in September. She additionally reported 2 episodes or dizziness this morning with position change that have resolved at time of my evaluation (13:30 once assumed care of patient and flower shop manager arrived). She has weakness to the right upper extremity and left lower extremity, by patient's account of the left lower extremity has not increased from her residual baseline since most recent CVA. However she does admit that increased weakness to the right upper extremity, she is able to lift the arm approximately 15 degrees off of the bed before having severe pain in the shoulder. She does have localized edema to the hand/digits, which may be dependent in nature especially given she has not been moving the upper extremity over the past 3 days. She otherwise does not have further/any new focal neurological deficits. Cerebellar function testing on the left side is normal, due to her residual weakness on the right she is unable to perform testing. Test of skew testing is negative bilaterally. She has no nystagmus. No associated headache or neck pain. Speech is clear. I reviewed this case extensively with my attending Dr. Lopez, who presented to bedside to evaluate the patient as well, I discussed with him obtaining CT angio head and neck though clinically I have a lower suspicion that these symptoms are consistent with CVA, he advises against CT angio at this time. Bedside vascular ultrasound without apparent occlusion of the vein, has patent IJ, will obtain obtain formal venous duplex ultrasound of the right upper extremity. Plan at this time to medicate with oxycodone 10 mg orally pending re-evaluation Differential Diagnosis Differential Diagnoses: The differential diagnosis associated with the presentation includes (See narrative above; shoulder strain, rotator cuff injury, DVT, CVA) Admission/Observation Consideration of admission/observation: Escalation of care including admission/observation considered Lab Data MDM Lab Attestation statement: I reviewed the patient's lab results. CBC is without leukocytosis, has a normocytic anemia that does not meet transfusion criteria, no thrombocytopenia. No electrolyte derangement. No MELLISSA. Non-anion gap hyperglycemia with random glucose of 225. Minimally elevated AST/ALT as seen on prior. High sensitive troponin below detectable limits. 12/05/24 12:42 12/05/24 12:42 Labs: Lab Results 12/05/24 Range/Units 12:42 WBC 7.0 (4.8-10.8) X10*3/uL RBC 4.19 L (4.20-5.50) X10*6/uL Hgb 11.5 L (12.0-16.0) g/dl Hct 33.8 L (37.0-47.0) % MCV 80.7 (80.0-98.0) fL MCH 27.4 (27.0-33.0) pg MCHC 34.0 (31.0-35.0) g/dl RDW 13.1 (11.0-16.0) % Plt Count 250 (160-400) X10*3/uL MPV 9.8 (9.4-12.3) fL Immature Gran % (Auto) 0.4 (0.0-0.4) % Neut % (Auto) 68.1 (45-73) % Lymph % (Auto) 23.9 (20-40) % [place] % (Auto) 5.3 (2-11) % Eos % (Auto) 1.9 (0-4) % Baso % (Auto) 0.4 (0-2) % Lymph # (Auto) 1.7 (1.2-4.9) X10*3/uL [place] # (Auto) 0.4 (0.1-1.2) X10*3/uL Eos # (Auto) 0.1 (0.0-0.4) X10*3/uL Baso # (Auto) 0.0 (0.0-0.2) X10*3/uL Abs Immat Gran (auto) 0.03 (0.00-0.03) X10*3/uL Absolute Neuts (auto) 4.8 (2.0-8.3) x10*3/uL Absolute Nucleated RBC 0.000 (0.0-0.012) X10*3/uL Nucleated RBC % (auto) 0.0 (0.0-0.2) /100WBC Sodium 139 (135-145) mmol/L Potassium 4.1 (3.3-5.1) mmol/L Chloride 102 (96-108) mmol/L Carbon Dioxide 26 (22-29) mmol/L Anion Gap 15 (12-20) BUN 16 (9-16) mg/dL Creatinine 0.81 (0.5-1.4) mg/dL Estim Creat Clear Calc 93.3 Estimated GFR > 60 Random Glucose 225 H (60-115) mg/dL Calcium 9.3 D (8.4-10.2) mg/dL Magnesium 1.9 (1.6-2.6) mg/dL Total Bilirubin 0.4 (0.0-1.0) mg/dL AST 35 H (5-31) U/L ALT 56 H (0-31) U/L Alkaline Phosphatase 101 (39-117) U/L Troponin I High Sens < 2.7 (<3.5-17.0) ng/L Total Protein 7.2 (6.5-8.0) g/dL Albumin 4.2 (3.5-5.0) g/dL Independent Interpretation I performed an independent interpretation of an: EKG (Normal sinus rhythm with ventricular rate of 74, normal ME 48 MS, QTC 452 MS, no ST-elevation) Radiology Impression Discussion of test interpretation with radiology: I have reviewed the radiologist's reading. Radiologist Impression: CT head without contrast Comparison: CT/ME/SR - CT HEAD FOR STROKE - 10/16/24 15:04 EDT Findings: No intra-axial mass, midline shift, hydrocephalus, or acute hemorrhage. Small focus of chronic infarction within the right occipital lobe and small chronic lacunar infarct within the left thalamus without change. Remaining brain volume is age-appropriate. There is mild white matter disease. The visualized paranasal sinuses and mastoid air cells are normal. The orbits are within normal limits. There is no acute fracture. IMPRESSION: 1. No acute intracranial findings. 3 view right shoulder Comparison: None Findings: Bones intact. No dislocations. No significant arthritic change. No erosions. No radiopaque foreign body. IMPRESSION: 1. No acute findings Venous duplex ultrasound right upper extremity Comparison: None Findings: Accessible deep venous segments are fully compressible with normal Doppler color flow and spectral tracings. IMPRESSION: 1. Negative for right upper extremity deep vein thrombosis. Independent Historian Clinical information obtained from an independent historian. History obtained from or confirmed by: Other (Daughter) External Record Review External record reviewed: Inpatient record and Outpatient record Tests considered The following testing was considered but not selected: See narrative above, deferred CT angio head renal Chronic Conditions Patient?s care impacted by: Other (See narrative above) Discharge Plan Discharge Clinical Impression: Right shoulder strain Patient Disposition: Home, Self-Care Instructions: Rotator Cuff Injury Exercises (DC) Additional Instructions: Extra today does not show evidence of bony abnormality in your right shoulder. There is no evidence of blood clot in the right arm. You were given oxycodone in the emergency department with improvement in your pain. Please be sure to rest over the next few days, apply ice/heat for 10-15 minutes 4-6 times daily. You can take Tylenol 500 mg, 2 tablets (1,000mg) every 4-6 hours as needed for pain, but not to exceed 3 doses daily (3,000mg).? Do not take ibuprofen/Motrin/Advil, Aleve/naproxen as you are taking Plavix and aspirin after your stroke. For pain that is unrelieved by the above measures I have sent a prescription for oxycodone to the pharmacy. This is a narcotic medication. It may make you drowsy. You should not drive, drink alcohol, while taking this medication. This medication may be addicting. It can also make you constipated you may find that you are having difficulty moving bowels while taking this medication, increased fiber intake and water intake, and use sums-[id number]-[id number] MiraLax per packaging instructions. Contact your primary care provider to arrange for a follow-up visit. I have additionally provided contact information for the orthopedic office, if your pain is not improving within 1 week you should contact their office for evaluation Prescriptions: New oxycodone 10 mg tablet 10 mg PO Q6H PRN (Reason: pain) Qty: 10 0RF Rx Instructions: Partial Fill upon patient request. No Action spironolactone 25 mg tablet 25 mg PO DAILY Qty: 90 1RF trazodone 150 mg tablet 150 mg PO BID PRN (Reason: Psychosis) hydroxyzine HCl 50 mg tablet 50 mg PO BEDTIME sertraline 100 mg tablet 100 mg PO DAILY clopidogrel 75 mg Tablet 75 mg PO DAILY Qty: 30 0RF atorvastatin 80 mg Tablet 80 mg PO BEDTIME Qty: 90 0RF insulin lispro [Admelog U-100 Insulin lispro] 100 unit/mL Solution See Protocol subcut QIDACHS Qty: 10 0RF Protocol: Insulin Correction Scale Less than or equal to 110 ---- Give (units): 0 111 to 150 Give (units): 0 151 to 200 Give (units): 2 201 to 250 Give (units): 4 251 to 300 Give (units): 6 301 to 350 Give (units): 8 Greater than 350 Give (units): 10 Call MD if Blood Glucose > : 350 Rx Instructions: BG <111 0 units, 111-150 - 0 units, 151-200 2 units, 201-250 4 units, 251-300 6 units, 301-350 8 units, >350 10 units insulin glargine [Lantus U-100 Insulin] 100 unit/mL Solution 15 unit subcut DAILY Qty: 10 0RF doxazosin 4 mg tablet 4 mg PO BEDTIME albuterol sulfate [Ventolin HFA] 90 mcg/actuation HFA aerosol inhaler 2 inh inhalation Q6H PRN (Reason: Shortness Of Breath Or Wheezing) lisinopril-hydrochlorothiazide 20-25 mg tablet 1 tab PO DAILY carvedilol 25 mg tablet 25 mg PO BID aspirin 81 mg tablet,delayed release (DR/EC) 81 mg PO DAILY amlodipine 10 mg tablet 10 mg PO DAILY Qty: 30 0RF Referrals: [facility] [Provider Group] Ani Bright MD [Primary Care Provider] - Print Language: Omani
--- NOTE | 2024-12-05 12:30 | ECG_ITS ---
Test Reason : SHOULDER PAIN Blood Pressure : */* mmHG Vent. Rate : 74 BPM Atrial Rate : 74 BPM P-R Int : 148 ms QRS Dur : 68 ms QT Int : 408 ms P-R-T Axes : 41 -9 97 degrees QTcB Int : 452 ms Normal sinus rhythm Low voltage QRS Abnormal QRS-T angle, consider primary T wave abnormality Abnormal ECG When compared with ECG of 15-Oct-2024 12:27, Nonspecific T wave abnormality no longer evident in Inferior leads QT has lengthened Referred By: Brianna Kent Electronically Signed By: Bruce Stern
--- OUTSIDE RECORDS SUMMARY | 2024-12-05 12:58 | XMS_ITS | Clinical Summary ---
Author Organization [address] [facility] Address [address] [place] [address] Phone Care Team Providers Care Bisque Kiln Placer Name Role Phone Leslee Recinos MD Primary Care Provider [phone] Encounters Date Type Department Care Team Description 11/01/2024 Lab Requisition [facility] Lab [address] [place] [address] Leslee Recinos MD Encounter for other general examination 10/25/2024 Lab Requisition [facility] Lab [address] [place] [address] Leslee Recinos MD Encounter for other general examination 10/23/2024 Lab Requisition [facility] Lab [address] [place] [address] Leslee Recinos MD Encounter for other general examination 10/21/2024 Lab Requisition [facility] Lab [address] [place] [address] Leslee Recinos MD Encounter for other general examination 10/19/2024 Lab Requisition [facility] Lab [address] [place] [address] Leslee Recinos MD Encounter for other general [...] LAB HEMETOLOGY METHOD 11/01/2024 12:18 PM EDT [facility] RBC 4.50 3.80 - 4.80 M/mcL LAB HEMETOLOGY METHOD 11/01/2024 12:18 PM EDT [facility] Hemoglobin 12.3 11.5 - 16.0 g/dL LAB HEMETOLOGY METHOD 11/01/2024 12:18 PM EDT [facility] Hematocrit 38.8 35.0 - 47.0 % LAB HEMETOLOGY METHOD 11/01/2024 12:18 PM EDT [facility] MCV 85.7 79.0 - 98.0 FL LAB HEMETOLOGY METHOD 11/01/2024 12:18 PM EDT [facility] MCH 27.2 27.0 - 32.0 pcg LAB HEMETOLOGY METHOD 11/01/2024 12:18 PM EDT [facility] MCHC 31.7(L) 32.0 - 37.0 g/dL LAB HEMETOLOGY METHOD 11/01/2024 12:18 PM EDT [facility] RDW 13.2 11.0 - 15.0 % LAB HEMETOLOGY METHOD 11/01/2024 12:18 PM EDT [facility] Platelets 301 130 - 400 K/mcL LAB HEMETOLOGY METHOD 11/01/2024 12:18 PM EDT [facility] MPV 10.8 7.0 - 11.0 FL LAB HEMETOLOGY METHOD 11/01/2024 12:18 PM EDT [facility] NRBC 0.0 <1.0 % LAB HEMETOLOGY METHOD 11/01/2024 12:18 PM EDT [facility] NRBC Absolute 0.00 <0.10 K/mcL LAB HEMETOLOGY METHOD 11/01/2024 12:18 PM EDT [facility] Blood Venous blood specimen / Unknown Venipuncture / Unknown 11/01/2024 6:03 AM EDT 11/01/2024 9:49 AM EDT us Leslee Recinos MD LAB BLOOD ORDERABLES Final Resu lt [facility] [address] [place] [address], * (ABNORMAL) Basic metabolic panel (11/01/2024 6:03 AM EDT) Only the most recent of3 resultswithin the time period is included. Sodium 141 133 - 145 mmol/L LAB CHEMISTRY METHOD 11/01/2024 12:36 PM [facility] Potassium 4.5 3.5 - 5.5 mmol/L LAB CHEMISTRY METHOD 11/01/2024 12:36 PM [facility] Chloride 105 96 - 110 mmol/L LAB CHEMISTRY METHOD 11/01/2024 12:36 PM [facility] CO2 28 21 - 32 mmol/L LAB CHEMISTRY METHOD 11/01/2024 12:36 PM [facility] Anion Gap 8 3 - 11 LAB CHEMISTRY METHOD 11/01/2024 12:36 PM [facility] Glucose 106(H) 70 - 100 mg/dL LAB CHEMISTRY METHOD 11/01/2024 12:36 PM [facility] BUN 14 5 - 25 mg/dL LAB CHEMISTRY METHOD 11/01/2024 12:36 PM [facility] Creatinine 1.03 0.50 - 1.10 mg/dL LAB CHEMISTRY METHOD 11/01/2024 12:36 PM [facility] eGFR 65 >=60 mL/min/1. 73m2 LAB CHEMISTRY METHOD 11/01/2024 12:36 PM [facility] Comment:Calculation based on the??Chronic Kidney Disease Epidemiology Collaboration (CKD-EPI) equation refit??without adjustment for race. BUN/Creatinine Ratio 13.6 LAB CHEMISTRY METHOD 11/01/2024 12:36 PM [facility] Calcium 9.5 8.5 - 10.5 mg/dL LAB CHEMISTRY METHOD 11/01/2024 12:36 PM [facility] Blood Venous blood specimen / Unknown Venipuncture / Unknown 11/01/2024 6:03 AM EDT 11/01/2024 9:49 AM EDT us Leslee Recinos MD LAB BLOOD ORDERABLES Final Resu lt Performing Organization Address [facility] de Phone Number [facility] [address] [place] [address], [place] [phone] * Magnesium (10/25/2024 5:48 AM EDT) Only the most recent of3 resultswithin the time period is included. Magnesium 2.3 1.9 - 2.6 mg/dL LAB CHEMISTRY METHOD 10/25/2024 8:46 AM EDT [facility] Blood Venous blood specimen / Unknown 10/25/2024 5:48 AM EDT 10/25/2024 8:11 AM EDT us Leslee Recinos MD LAB BLOOD ORDERABLES Final Resu lt Performing Organization Address [facility] de Phone Number [facility] [address] [place] [address], [place] [phone] * Lipase (10/21/2024 5:40 AM EDT) Lipase 36 13 - 75 unit/L LAB CHEMISTRY METHOD 10/21/2024 10:09 AM EDT [facility] Blood Venous blood specimen / Unknown Venipuncture / Unknown 10/21/2024 5:40 AM EDT 10/21/2024 8:40 AM EDT us Leslee Recinos MD LAB BLOOD ORDERABLES Final Resu lt Performing Organization Address [facility] Co de Phone Number [facility] [address] [place] [address], [place] [phone] * (ABNORMAL) CBC auto differential (10/19/2024 5:40 AM EDT) [facility] WBC 7.9 4.8 - 10.8 K/mcL LAB HEMETOLOGY METHOD 10/19/2024 10:31 AM [facility] RBC 5.00(H) 3.80 - 4.80 M/mcL LAB HEMETOLOGY METHOD 10/19/2024 10:31 AM [facility] Hemoglobin 13.7 11.5 - 16.0 g/dL LAB HEMETOLOGY METHOD 10/19/2024 10:31 AM [facility] Hematocrit 41.2 35.0 - 47.0 % LAB HEMETOLOGY METHOD 10/19/2024 10:31 AM [facility] MCV 82.1 79.0 - 98.0 FL LAB HEMETOLOGY METHOD 10/19/2024 10:31 AM [facility] MCH 27.3 27.0 - 32.0 pcg LAB HEMETOLOGY METHOD 10/19/2024 10:31 AM [facility] MCHC 33.3 32.0 - 37.0 g/dL LAB HEMETOLOGY METHOD 10/19/2024 10:31 AM [facility] RDW 13.9 11.0 - 15.0 % LAB HEMETOLOGY METHOD 10/19/2024 10:31 AM [facility] Platelets 261 130 - 400 K/mcL LAB HEMETOLOGY METHOD 10/19/2024 10:31 AM [facility] MPV 10.1 7.0 - 11.0 FL LAB HEMETOLOGY METHOD 10/19/2024 10:31 AM [facility] NRBC 0.0 <1.0 % LAB HEMETOLOGY METHOD 10/19/2024 10:31 AM [facility] NRBC Absolute 0.00 <0.10 K/[facility] LAB HEMETOLOGY METHOD 10/19/2024 10:31 AM [facility] Neutrophils Relative 64.6 % LAB HEMETOLOGY METHOD 10/19/2024 10:31 AM [facility] Lymphocytes Relative 26.0 % LAB HEMETOLOGY METHOD 10/19/2024 10:31 AM [facility] Monocytes Relative 7.7 % LAB HEMETOLOGY METHOD 10/19/2024 10:31 AM [facility] Eosinophils Relative 0.9 % LAB HEMETOLOGY METHOD 10/19/2024 10:31 AM [facility] Basophils Relative 0.4 % LAB HEMETOLOGY METHOD 10/19/2024 10:31 AM [facility] Immature Granulocytes Relative 0.4 % LAB HEMETOLOGY METHOD 10/19/2024 10:31 AM [facility] Neutrophils Absolute 5.12 1.50 - 7.00 K/mcL LAB HEMETOLOGY METHOD 10/19/2024 10:31 AM [facility] Lymphocytes Absolute 2.06 1.00 - 5.00 K/mcL LAB HEMETOLOGY METHOD 10/19/2024 10:31 AM [facility] Monocytes Absolute 0.61 0.20 - 1.00 K/mcL LAB HEMETOLOGY METHOD 10/19/2024 10:31 AM [facility] Eosinophils Absolute 0.07 0.00 - 0.50 K/mcL LAB HEMETOLOGY METHOD 10/19/2024 10:31 AM [facility] Basophils Absolute 0.03 0.00 - 0.20 K/mcL LAB HEMETOLOGY METHOD 10/19/2024 10:31 AM [facility] Immature Granulocytes Absolute 0.03 0.00 - 0.03 K/mcL LAB HEMETOLOGY METHOD 10/19/2024 10:31 AM [facility] Blood Venous blood specimen / Unknown Venipuncture / Unknown 10/19/2024 5:40 AM EDT 10/19/2024 9:43 AM EDT us Leslee Recinos MD LAB BLOOD ORDERABLES Final Resu lt [facility] [address] [place] [address], * (ABNORMAL) Comprehensive metabolic panel (10/19/2024 5:40 AM EDT) Sodium 136 133 - 145 mmol/L LAB CHEMISTRY METHOD 10/19/2024 12:03 PM [facility] Potassium 4.1 3.5 - 5.5 mmol/L LAB CHEMISTRY METHOD 10/19/2024 12:03 PM [facility] Chloride 98 96 - 110 mmol/L LAB CHEMISTRY METHOD 10/19/2024 12:03 PM [facility] CO2 27 21 - 32 mmol/L LAB CHEMISTRY METHOD 10/19/2024 12:03 PM [facility] Anion Gap 11 3 - 11 LAB CHEMISTRY METHOD 10/19/2024 12:03 PM [facility] Glucose 170(H) 70 - 100 mg/dL LAB CHEMISTRY METHOD 10/19/2024 12:03 PM [facility] BUN 24 5 - 25 mg/dL LAB CHEMISTRY METHOD 10/19/2024 12:03 PM [facility] Creatinine 1.04 0.50 - 1.10 mg/dL LAB CHEMISTRY METHOD 10/19/2024 12:03 PM [facility] eGFR 64 >=60 mL/min/1. 73m2 LAB CHEMISTRY METHOD 10/19/2024 12:03 PM [facility] Comment:Calculation based on the??Chronic Kidney Disease Epidemiology Collaboration (CKD-EPI) equation refit??without adjustment for race. BUN/Creatinine Ratio 23.1 LAB CHEMISTRY METHOD 10/19/2024 12:03 PM [facility] Calcium 9.4 8.5 - 10.5 mg/dL LAB CHEMISTRY METHOD 10/19/2024 12:03 PM [facility] AST (SGOT) 19 10 - 42 unit/L LAB CHEMISTRY METHOD 10/19/2024 12:03 PM [facility] ALT (SGPT) 39 10 - 60 unit/L LAB CHEMISTRY METHOD 10/19/2024 12:03 PM [facility] Alkaline Phosphatase 103 42 - 121 unit/L LAB CHEMISTRY METHOD 10/19/2024 12:03 PM [facility] Total Protein 7.2 6.0 - 8.0 g/dL LAB CHEMISTRY METHOD 10/19/2024 12:03 PM [facility] Albumin 3.9 3.2 - 5.0 g/dL LAB CHEMISTRY METHOD 10/19/2024 12:03 PM [facility] Total Bilirubin 0.9 0.0 - 1.4 mg/dL LAB CHEMISTRY METHOD 10/19/2024 12:03 PM [facility] Blood Venous blood specimen / Unknown Venipuncture / Unknown 10/19/2024 5:40 AM EDT 10/19/2024 9:43 AM EDT us Leslee Recinos MD LAB BLOOD ORDERABLES Final Resu lt [facility] [address] [place] [address], [place] [phone] from Last 3 Months Insurance MEDICARE MEDICAID - [place] Care Teams Bisque Kiln Placer Relationship Specialty Start Date End Date Leslee Recinos MD [address] [place] [phone] PCP - General Hospitalist Medicine 10/19/24
--- OUTSIDE RECORDS SUMMARY | 2024-12-05 12:58 | XMS_ITS | Encounter Summary ---
Author Organization Transfer To Address [address] [place] [address] Care Team Providers Care Blow Pit Operator Name Role Phone Leslee Recinos MD Primary Care Provider Encounter Details Date Type Department Care Team (Late st Contact Info) Description 10/25/[address] [facility] Lab [address] [place] [address] Leslee Recinos MD [address] [place] [phone] Encounter for other general examination Social History [...] LAB CHEMISTRY METHOD 10/25/2024 8:46 AM EDT [facility] ([facility] Blood Venous blood specimen / Unknown 10/25/2024 5:48 AM EDT 10/25/2024 8:11 AM EDT us Leslee Recinos MD LAB BLOOD ORDERABLES Final Resu lt [facility] [address] [place] [address], [place] [phone] * (ABNORMAL) Complete blood count (10/25/2024 5:48 AM EDT) WBC 5.9 4.8 - 10.8 K/mcL LAB HEMETOLOGY METHOD 10/25/2024 8:40 AM EDT [facility] RBC 4.80 3.80 - 4.80 M/mcL LAB HEMETOLOGY METHOD 10/25/2024 8:40 AM EDT [facility] Hemoglobin 12.9 11.5 - 16.0 g/dL LAB HEMETOLOGY METHOD 10/25/2024 8:40 AM EDT [facility] Hematocrit 40.0 35.0 - 47.0 % LAB HEMETOLOGY METHOD 10/25/2024 8:40 AM EDT [facility] MCV 83.7 79.0 - 98.0 FL LAB HEMETOLOGY METHOD 10/25/2024 8:40 AM EDT [facility] MCH 27.0 27.0 - 32.0 pcg LAB HEMETOLOGY METHOD 10/25/2024 8:40 AM EDT [facility] MCHC 32.3 32.0 - 37.0 g/dL LAB HEMETOLOGY METHOD 10/25/2024 8:40 AM EDT [facility] RDW 13.1 11.0 - 15.0 % LAB HEMETOLOGY METHOD 10/25/2024 8:40 AM EDT [facility] Platelets 287 130 - 400 K/mcL LAB HEMETOLOGY METHOD 10/25/2024 8:40 AM EDT [facility] MPV 11.2(H) 7.0 - 11.0 FL LAB HEMETOLOGY METHOD 10/25/2024 8:40 AM EDT [facility] NRBC 0.0 <1.0 % LAB HEMETOLOGY METHOD 10/25/2024 8:40 AM EDT [facility] NRBC Absolute 0.00 <0.10 K/mcL LAB HEMETOLOGY METHOD 10/25/2024 8:40 AM EDT [facility] Blood Venous blood specimen / Unknown 10/25/2024 5:48 AM EDT 10/25/2024 8:11 AM EDT us Leslee Recinos MD LAB BLOOD ORDERABLES Final Resu lt [facility] [address] [place] [address], * (ABNORMAL) Basic metabolic panel (10/25/2024 5:48 AM EDT) Sodium 135 133 - 145 mmol/L LAB CHEMISTRY METHOD 10/25/2024 8:46 AM [facility] Potassium 4.1 3.5 - 5.5 mmol/L LAB CHEMISTRY METHOD 10/25/2024 8:46 AM [facility] Chloride 98 96 - 110 mmol/L LAB CHEMISTRY METHOD 10/25/2024 8:46 AM [facility] CO2 28 21 - 32 mmol/L LAB CHEMISTRY METHOD 10/25/2024 8:46 AM [facility] Anion Gap 9 3 - 11 LAB CHEMISTRY METHOD 10/25/2024 8:46 AM [facility] Glucose 157(H) 70 - 100 mg/dL LAB CHEMISTRY METHOD 10/25/2024 8:46 AM [facility] BUN 24 5 - 25 mg/dL LAB CHEMISTRY METHOD 10/25/2024 8:46 AM EDT [facility] Creatinine 1.10 0.50 - 1.10 mg/dL LAB CHEMISTRY METHOD 10/25/2024 8:46 AM EDT [facility] eGFR 60 >=60 mL/min/1. 73m2 LAB CHEMISTRY METHOD 10/25/2024 8:46 AM EDT [facility] Comment:Calculation based on the??Chronic Kidney Disease Epidemiology Collaboration (CKD-EPI) equation refit??without adjustment for race. BUN/Creatinine Ratio 21.8 LAB CHEMISTRY METHOD 10/25/2024 8:46 AM EDT [facility] Calcium 9.8 8.5 - 10.5 mg/dL LAB CHEMISTRY METHOD 10/25/2024 8:46 AM T [facility] Blood Venous blood specimen / Unknown 10/25/2024 5:48 AM EDT 10/25/2024 8:11 AM EDT us Leslee Recinos MD LAB BLOOD ORDERABLES Final Resu lt [facility] [address] [place] [address], documented in this encounter Visit Diagnoses Diagnosis Encounter for other general examination documented in this encounter Care Teams Blow Pit Operator Relationship Specialty Start Date End Date Leslee Recinos MD [address] [place] [phone] PCP - General Hospitalist Medicine 10/19/24 documented as of this encounter
--- OUTSIDE RECORDS SUMMARY | 2024-12-05 12:58 | XMS_ITS | Encounter Summary ---
Author Organization [employer] Address [address] [place] [address] Care Team Providers Care Bottom Sander Name Role Phone Leslee Recinos MD Primary Care Provider Encounter Details Date Type Department Care Team (Late st Contact Info) Description 11/01/2024 Lab Requisition [facility] - Main Lab [address] [place] [address] Leslee Recinos MD [address] [place] [phone] Encounter for other general examination Social History [...] AM EDT) WBC 7.7 4.8 - 10.8 K/[facility] LAB HEMETOLOGY METHOD 11/01/2024 12:18 PM EDT [facility] RBC 4.50 3.80 - 4.80 M/[facility] LAB HEMETOLOGY METHOD 11/01/2024 12:18 PM EDT [...] Resu lt [facility] [address] [place] [address], * (ABNORMAL) Basic metabolic panel (11/01/2024 6:03 AM EDT) Sodium 141 133 - 145 mmol/L LAB CHEMISTRY METHOD 11/01/2024 12:36 PM [facility] Potassium 4.5 3.5 - 5.5 mmol/L LAB CHEMISTRY METHOD 11/01/2024 12:36 PM [facility] Chloride 105 96 - 110 mmol/L LAB CHEMISTRY METHOD 11/01/2024 12:36 PM [facility] CO2 28 21 - 32 mmol/L LAB CHEMISTRY METHOD 11/01/2024 12:36 PM [facility] Anion Gap 8 3 - 11 LAB CHEMISTRY METHOD 11/01/2024 12:36 PM [facility] Glucose 106(H) 70 - 100 mg/dL LAB CHEMISTRY METHOD 11/01/2024 12:36 PM [facility] BUN 14 5 - 25 mg/dL LAB CHEMISTRY METHOD 11/01/2024 12:36 PM [facility] Creatinine 1.03 0.50 - 1.10 mg/dL LAB CHEMISTRY METHOD 11/01/2024 12:36 PM [facility] LAB eGFR 65 >=60 mL/min/1. 73m2 LAB CHEMISTRY METHOD 11/01/2024 12:36 PM [facility] LAB Comment:Calculation based on the??Chronic Kidney Disease Epidemiology Collaboration (CKD-EPI) equation refit??without adjustment for race. BUN/Creatinine Ratio 13.6 LAB CHEMISTRY METHOD 11/01/2024 12:36 PM [facility] Calcium 9.5 8.5 - 10.5 mg/dL LAB CHEMISTRY METHOD 11/01/2024 12:36 PM [facility] Blood Venous blood specimen / Unknown Venipuncture / Unknown 11/01/2024 6:03 AM EDT 11/01/2024 9:49 AM EDT us Leslee Recinos MD LAB BLOOD ORDERABLES Final Resu lt [facility] LAB [address] [place] [address], documented in this encounter Visit Diagnoses Diagnosis Encounter for other general examination documented in this encounter Care Teams Bottom Sander Relationship Specialty Start Date End Date Leslee Recinos MD [address] [place] [phone] PCP - General Hospitalist Medicine 10/19/24 documented as of this encounter
--- OUTSIDE RECORDS SUMMARY | 2024-12-05 12:59 | XMS_ITS | Encounter Summary ---
Author Organization [employer] Address [address] [place] [address] Care Team Providers Care Sewage Treatment Plant Operator Name Role Phone Leslee Recinos MD Primary Care Provider Encounter Details Date Type Department Care Team (Late st Contact Info) Description 10/21/[address] [facility] - Main Lab [address] [place] [address] Leslee Recinos MD [address] [place] [address] Encounter for other general examination Social History [...] LAB CHEMISTRY METHOD 10/21/2024 10:09 AM EDT [facility] Blood Venous blood specimen / Unknown Venipuncture / Unknown 10/21/2024 5:40 AM EDT 10/21/2024 8:40 AM EDT us Leslee Recinos MD LAB BLOOD ORDERABLES Final Resu lt [facility] [address] [place] [address], documented in this encounter Visit Diagnoses Diagnosis Encounter for other general examination documented in this encounter Care Teams Sewage Treatment Plant Operator Relationship Specialty Start Date End Date Leslee Recinos MD [address] [place] [phone] PCP - General Hospitalist Medicine 10/19/24 documented as of this encounter
--- OUTSIDE RECORDS SUMMARY | 2024-12-05 12:59 | XMS_ITS | Encounter Summary ---
Author Organization [employer] Address [address] [place] [address] Care Team Providers Care Wool Fleece Sorter Name Role Phone Leslee Recinos MD Primary Care Provider Encounter Details Date Type Department Care Team (Late st Contact Info) Description 10/23/2024 Lab Requisition [facility] - Main Lab [address] [place] [address] Leslee Recinos MD [address] [place] [phone] Encounter for other general examination Social History [...] LAB CHEMISTRY METHOD 10/23/2024 1:30 PM EDT [facility] Blood Venous blood specimen / Unknown Venipuncture / Unknown 10/23/2024 11:18 AM EDT 10/23/2024 12:58 PM EDT Leslee Recinos MD LAB BLOOD ORDERABLES Final Resu lt [facility] [address] [place] [address], * (ABNORMAL) Basic metabolic panel (10/23/2024 11:18 AM EDT) Sodium 137 133 - 145 mmol/L LAB CHEMISTRY METHOD 10/23/2024 1:30 PM [facility] Potassium 4.5 3.5 - 5.5 mmol/L LAB CHEMISTRY METHOD 10/23/2024 1:30 PM [facility] Chloride 101 96 - 110 mmol/L LAB CHEMISTRY METHOD 10/23/2024 1:30 PM [facility] CO2 29 21 - 32 mmol/L LAB CHEMISTRY METHOD 10/23/2024 1:30 PM [facility] Anion Gap 7 3 - 11 LAB CHEMISTRY METHOD 10/23/2024 1:30 PM [facility] Glucose 148(H) 70 - 100 mg/dL LAB CHEMISTRY METHOD 10/23/2024 1:30 PM [facility] BUN 27(H) 5 - 25 mg/dL LAB CHEMISTRY METHOD 10/23/2024 1:30 PM [facility] Creatinine 1.16(H) 0.50 - 1.10 mg/dL LAB CHEMISTRY METHOD 10/23/2024 1:30 PM [facility] eGFR 56(L) >=60 mL/min/1. 73m2 LAB CHEMISTRY METHOD 10/23/2024 1:30 PM [facility] Comment:Calculation based on the??Chronic Kidney Disease Epidemiology Collaboration (CKD-EPI) equation refit??without adjustment for race. BUN/Creatinine Ratio 23.3 LAB CHEMISTRY METHOD 10/23/2024 1:30 PM [facility] Calcium 10.0 8.5 - 10.5 mg/dL LAB CHEMISTRY METHOD 10/23/2024 1:[address] [facility] Blood Venous blood specimen / Unknown Venipuncture / Unknown 10/23/2024 11:18 AM EDT 10/23/2024 12:58 PM EDT us Leslee Recinos MD LAB BLOOD ORDERABLES Final Resu lt [facility] [address] [place] [address], [place] [phone] documented in this encounter Visit Diagnoses Diagnosis Encounter for other general examination documented in this encounter Care Teams Wool Fleece Sorter Relationship Specialty Start Date End Date Leslee Recinos MD [address] [place] [phone] PCP - General Hospitalist Medicine 10/19/24 documented as of this encounter
--- OUTSIDE RECORDS SUMMARY | 2024-12-05 12:59 | XMS_ITS | Clinical Summary ---
Author Organization [facility] Address [address] [place] [address] Phone Care Team Providers Care Dispensing Audiologist Name Role Phone Ani Bright MD Primary [...] (Season Ended) 2025 Insurance Medicaid [place] Care Teams Dispensing Audiologist Relationship Specialty Start Date End Date Ani Bright MD [address] [facility] [address] [place], [place] PCP - General Internal Medicine 02/28/21
--- OUTSIDE RECORDS SUMMARY | 2024-12-05 12:59 | XMS_ITS | Encounter Summary ---
Author Organization [facility] Address [address] [place] [address] Care Team Providers Care Formula Bottler Name Role Phone Leslee Recinos MD Primary Care Provider Encounter Details Date Type Department Care Team (Late st Contact Info) Description 10/19/2024 Lab Requisition [facility] - Main Lab [address] [facility] [place] [address] Leslee Recinos MD [address] [place] [phone] Encounter for other general examination Social History [...] AM EDT) WBC 7.9 4.8 - 10.8 K/[facility] LAB HEMETOLOGY METHOD 10/19/2024 10:31 AM [facility] RBC 5.00(H) 3.80 - 4.80 M/mcL LAB HEMETOLOGY METHOD 10/19/2024 10:31 AM [facility] Hemoglobin 13.7 11.5 - 16.0 g/dL LAB HEMETOLOGY METHOD 10/19/2024 10:31 AM [facility] Hematocrit 41.2 35.0 - 47.0 % LAB HEMETOLOGY METHOD 10/19/2024 10:31 AM [facility] MCV 82.1 79.0 - 98.0 FL LAB HEMETOLOGY METHOD 10/19/2024 10:31 AM [facility] MCH 27.3 27.0 - 32.0 pcg LAB HEMETOLOGY METHOD 10/19/2024 10:31 AM [facility] MCHC 33.3 32.0 - 37.0 g/dL LAB HEMETOLOGY METHOD 10/19/2024 10:31 AM [facility] RDW 13.9 11.0 - 15.0 % LAB HEMETOLOGY METHOD 10/19/2024 10:31 AM [facility] Platelets 261 130 - 400 K/mcL LAB HEMETOLOGY METHOD 10/19/2024 10:31 AM [facility] MPV 10.1 7.0 - 11.0 FL LAB HEMETOLOGY METHOD 10/19/2024 10:31 AM [facility] NRBC 0.0 <1.0 % LAB HEMETOLOGY METHOD 10/19/2024 10:31 AM [facility] NRBC Absolute 0.00 <0.10 K/mcL LAB HEMETOLOGY METHOD 10/19/2024 10:31 AM [facility] Neutrophils Relative 64.6 % LAB HEMETOLOGY METHOD 10/19/2024 10:31 AM [facility] Lymphocytes Relative 26.0 % LAB HEMETOLOGY METHOD 10/19/2024 10:31 AM [facility] Monocytes Relative 7.7 % LAB HEMETOLOGY METHOD 10/19/2024 10:31 AM [facility] Eosinophils Relative 0.9 % LAB HEMETOLOGY METHOD 10/19/2024 10:31 AM [facility] Basophils Relative 0.4 % LAB HEMETOLOGY METHOD 10/19/2024 10:31 AM [facility] Immature Granulocytes Relative 0.4 % LAB HEMETOLOGY METHOD 10/19/2024 10:31 AM [facility] Neutrophils Absolute 5.12 1.50 - 7.00 K/mcL LAB HEMETOLOGY METHOD 10/19/2024 10:31 AM [facility] Lymphocytes Absolute 2.06 1.00 - 5.00 K/mcL LAB HEMETOLOGY METHOD 10/19/2024 10:31 AM [facility] Monocytes Absolute 0.61 0.20 - 1.00 K/mcL LAB HEMETOLOGY METHOD 10/19/2024 10:31 AM [facility] Eosinophils Absolute 0.07 0.00 - 0.50 K/mcL LAB HEMETOLOGY METHOD 10/19/2024 10:31 AM [facility] Basophils Absolute 0.03 0.00 - 0.20 K/mcL LAB HEMETOLOGY METHOD 10/19/2024 10:31 AM [facility] Immature Granulocytes Absolute 0.03 0.00 - 0.03 K/mcL LAB HEMETOLOGY METHOD 10/19/2024 10:31 AM [facility] Blood Venous blood specimen / Unknown Venipuncture / Unknown 10/19/2024 5:40 AM EDT 10/19/2024 9:43 AM EDT us Leslee Recinos MD LAB BLOOD ORDERABLES Final Resu lt [facility] [address] [place] [address], [place] [phone] * Magnesium (10/19/2024 5:40 AM EDT) Pathologist [facility] Magnesium 2.1 1.9 - 2.6 mg/dL LAB CHEMISTRY METHOD 10/19/2024 12:03 PM EDT [facility] Blood Venous blood specimen / Unknown Venipuncture / Unknown 10/19/2024 5:40 AM EDT 10/19/2024 9:43 AM EDT us Leslee Recinos MD LAB BLOOD ORDERABLES Final Resu lt Performing Organization Address City/[facility]/ZIP Co de Phone Number [facility] [address] [place] [address], [place] [phone] * (ABNORMAL) Comprehensive metabolic panel (10/19/2024 5:40 AM EDT) [facility] Sodium 136 133 - 145 mmol/L LAB CHEMISTRY METHOD 10/19/2024 12:03 PM [facility] Potassium 4.1 3.5 - 5.5 mmol/L LAB CHEMISTRY METHOD 10/19/2024 12:03 PM [facility] Chloride 98 96 - 110 mmol/L LAB CHEMISTRY METHOD 10/19/2024 12:03 PM [facility] CO2 27 21 - 32 mmol/L LAB CHEMISTRY METHOD 10/19/2024 12:03 PM [facility] Anion Gap 11 3 - 11 LAB CHEMISTRY METHOD 10/19/2024 12:03 PM [facility] Glucose 170(H) 70 - 100 mg/dL LAB CHEMISTRY METHOD 10/19/2024 12:03 PM [facility] BUN 24 5 - 25 mg/dL LAB CHEMISTRY METHOD 10/19/2024 12:03 PM [facility] Creatinine 1.04 0.50 - 1.10 mg/dL LAB CHEMISTRY METHOD 10/19/2024 12:03 PM [facility] eGFR 64 >=60 mL/min/1. 73m2 LAB CHEMISTRY METHOD 10/19/2024 12:03 PM [facility] Comment:Calculation based on the??Chronic Kidney Disease Epidemiology Collaboration (CKD-EPI) equation refit??without adjustment for race. BUN/Creatinine Ratio 23.1 LAB CHEMISTRY METHOD 10/19/2024 12:03 PM [facility] Calcium 9.4 8.5 - 10.5 mg/dL LAB CHEMISTRY METHOD 10/19/2024 12:03 PM [facility] AST (SGOT) 19 10 - 42 unit/L LAB CHEMISTRY METHOD 10/19/2024 12:03 PM [facility] ALT (SGPT) 39 10 - 60 unit/L LAB CHEMISTRY METHOD 10/19/2024 12:03 PM [facility] Alkaline Phosphatase 103 42 - 121 unit/L LAB CHEMISTRY METHOD 10/19/2024 12:03 PM [facility] Total Protein 7.2 6.0 - 8.0 g/dL LAB CHEMISTRY METHOD 10/19/2024 12:03 PM [facility] Albumin 3.9 3.2 - 5.0 g/dL LAB CHEMISTRY METHOD 10/19/2024 12:03 PM [facility] Total Bilirubin 0.9 0.0 - 1.4 mg/dL LAB CHEMISTRY METHOD 10/19/2024 12:03 PM [facility] Blood Venous blood specimen / Unknown Venipuncture / Unknown 10/19/2024 5:40 AM EDT 10/19/2024 9:43 AM EDT us Rami A Ashkar MD LAB BLOOD ORDERABLES Final Resu lt [facility] [address] [place] [address], documented in this encounter Visit Diagnoses Diagnosis Encounter for other general examination documented in this encounter Care Teams Formula Bottler Relationship Specialty Start Date End Date Leslee Recinos MD [address] [place] [phone] PCP - General Hospitalist Medicine 10/19/24 documented as of this encounter
[2024-12-05 13:04] LABS: MANUAL DIFF FLAG NO
[2024-12-05 13:05] LABS: Basophils Percent Auto 0.4 % (0-2); Eosinophils Absolute Auto 0.1 X10*3/uL (0.0-0.4); Eosinophils Percent Auto 1.9 % (0-4); Hematocrit 33.8 % (37.0-47.0); Hemoglobin 11.5 g/dl (12.0-16.0); Imm Gran Abs Auto 0.03 X10*3/uL (0.00-0.03); Imm Gran Pct Auto 0.4 % (0.0-0.4); Lymphocytes Absolute Auto 1.7 X10*3/uL (1.2-4.9); Lymphocytes Percent Auto 23.9 % (20-40); Mean Corpuscular Hemoglobin 27.4 pg (27.0-33.0); Mean Corpuscular Volume 80.7 fL (80.0-98.0); Mean Platelet Volume 9.8 fL (9.4-12.3); Monocytes Absolute Auto 0.4 X10*3/uL (0.1-1.2); Monocytes Percent Auto 5.3 % (2-11); Neutrophils Absolute Auto 4.8 x10*3/uL (2.0-8.3); Neutrophils Percent Auto 68.1 % (45-73); Platelet Count 250 X10*3/uL (160-400); Red Blood Count 4.19 X10*6/uL (4.20-5.50); Red Cell Distribution Width 13.1 % (11.0-16.0)
[2024-12-05 13:22] LABS: Alanine Aminotransferase 56 U/L (0-31); Albumin Level 4.2 g/dL (3.5-5.0); Alkaline Phosphatase 101 U/L (39-117); Anion Gap 15 (12-20); Aspartate Amino Transferase 35 U/L (5-31); Bilirubin Total 0.4 mg/dL (0.0-1.0); Blood Urea Nitrogen 16 mg/dL (9-16); Calcium 9.3 mg/dL (8.4-10.2); Carbon Dioxide 26 mmol/L (22-29); Chloride 102 mmol/L (96-108); Creatinine Clr Calc Pharmacy 93.3; Estimated Glomerular Filt Rate > 60; Glucose Random 225 mg/dL (60-115); Magnesium 1.9 mg/dL (1.6-2.6); Potassium 4.1 mmol/L (3.3-5.1); Sodium 139 mmol/L (135-145); Total Protein 7.2 g/dL (6.5-8.0)
[2024-12-05 13:31] LABS: Troponin-I High Sensitivity < 2.7 ng/L (<3.5-17.0)
[2024-12-05] MEDS: oxyCODONE HCl Immed Release 5 MG TABLET PO ×2 (14:13)
[2024-12-05 14:23] VITALS: BP 153/76; PULSE 66; RESP 18; O2SAT 99
[2024-12-05 15:56] VITALS: BP 151/75; PULSE 58
[2024-12-05 15:57] VITALS: BP 151/81; BP 153/81; PULSE 64; PULSE 77
[2024-12-05 16:04] VITALS: BP 151/75; PULSE 58; RESP 15; TEMP 36.5; O2SAT 92
[2024-12-05 17:35] VITALS: BP 150/73; PULSE 61; RESP 16; TEMP 36.2; O2SAT 95
== END 2024-12-05 17:37 | disposition home or self-care (01) ==
PROVIDERS: Physician Assistant Medical; Emergency Provider Emergency Medicine; PCP Internal Medicine
DX: S46.911A Strain of unspecified muscle, fascia and tendon at shoulder and upper arm level, right arm, initial encounter (principal); X58.XXXA Exposure to other specified factors, initial encounter; M25.511 Pain in right shoulder; M79.89 Other specified soft tissue disorders; R42 Dizziness and giddiness; R53.1 Weakness; Z86.73 Personal history of transient ischemic attack (TIA), and cerebral infarction without residual deficits; Z79.82 Long term (current) use of aspirin; Z79.899 Other long term (current) drug therapy; Z79.02 Long term (current) use of antithrombotics/antiplatelets; Z79.4 Long term (current) use of insulin; Y93.9 Activity, unspecified; Y92.9 Unspecified place or not applicable; Y99.9 Unspecified external cause status
CPT/HCPCS: 36415; 70450; 73030; 80053; 83735; 84484; 85025; 93005; 93971; 99284; 99285

== ENCOUNTER → 2024-12-05 12:30 | Outpatient (BNV) | payer MEDICARE, MEDICAID, SELFPAY | PROVIDERS: PCP Internal Medicine; Visit Provider Radiology Diagnostic Radiology | DX: R42 Dizziness and giddiness (principal); M79.601 Pain in right arm; S43.90XA Sprain of unspecified parts of unspecified shoulder girdle, initial encounter | CPT/HCPCS: 70450; 73030; 93971 ==

== ENCOUNTER → 2024-12-05 12:30 | Outpatient (BNV) | payer MEDICARE, MEDICAID, SELFPAY | PROVIDERS: Emergency Provider Emergency Medicine; PCP Internal Medicine; Visit Provider Internal Medicine Cardiovascular Disease | DX: R94.31 Abnormal electrocardiogram [ECG] [EKG] (principal); M25.519 Pain in unspecified shoulder | CPT/HCPCS: 93010 ==

== ENCOUNTER 2025-02-24 12:17 | Emergency (ER) | payer MEDICARE, MEDICAID, SELFPAY ==
--- NOTE | ~2025-02-24 | XR_ITS ---
CLINICAL HISTORY: atraumatic right shoulder pain 3 view right shoulder Comparison: CR - XR SHOULDER RT MIN 2V - 12/05/24 12:51 EDT Findings: No fractures or dislocations. No significant arthritic change. No erosions. No radiopaque foreign body. IMPRESSION: 1. No acute findings This document has been electronically signed by: Uma Ceballos MD on 02/24/2025 18:36:17
[2025-02-24 12:30] VITALS: BP 146/67; PULSE 80; RESP 16; TEMP 36.4; O2SAT 95; BMI 32.1
--- NOTE | 2025-02-24 12:33 | ED.GENADULT ---
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 Pain is localized to the outer aspect of her right shoulder. No radiation. No numbness/tingling down RUE. No neck pain. She reports trialing muscle relaxers without much relief. Patient reports chronic weakness to both right upper and right lower extremities following a CVA in December while in OR. She has completed PT for this however has residual weakness with difficulty moving the right arm at baseline. She also endorses intermittent dizziness x2 days. Dizziness is primarily on standing and ambulating. Episodes last a few minutes before completely resolving. Describes this feeling as motion sickness with associated nausea, no vomiting. Denies any dizziness at present. Denies vision changes. Related Data Home Medications ?Medication ?Instructions ?Recorded ?Confirmed doxazosin 4 mg tablet 4 mg PO BEDTIME 05/27/22 10/15/24 hydroxyzine HCl 50 mg tablet 50 mg PO BEDTIME 10/29/22 10/15/24 aspirin 81 mg tablet,delayed 81 mg PO DAILY 12/10/22 10/15/24 release albuterol sulfate 90 mcg/actuation 2 inh inhalation Q6H PRN Shortness 04/16/24 10/15/24 aerosol inhaler (Ventolin HFA) Of Breath Or Wheezing carvedilol 25 mg tablet 25 mg PO BID 04/16/24 10/15/24 lisinopril 20 1 tab PO DAILY 04/16/24 10/15/24 mg-hydrochlorothiazide 25 mg tablet trazodone 150 mg tablet 150 mg PO BID PRN Psychosis 08/13/24 10/15/24 sertraline 100 mg tablet 100 mg PO DAILY 10/15/24 10/15/24 Previous Rx's ?Medication ?Instructions ?Recorded amlodipine 10 mg tablet 10 mg PO DAILY #30 tabs 08/10/24 spironolactone 25 mg tablet 25 mg PO DAILY #90 tabs 08/12/24 atorvastatin 80 mg tablet 80 mg PO BEDTIME #90 tabs 10/18/24 clopidogrel 75 mg tablet 75 mg PO DAILY #30 tabs 10/18/24 insulin glargine 100 unit/mL 15 unit (0.15 mL) subcut DAILY #10 10/18/24 subcutaneous solution (Lantus mL U-100 Insulin) insulin lispro 100 unit/mL See Protocol subcut QIDACHS #10 mL 10/18/24 subcutaneous solution (Admelog U-100 Insulin lispro) oxycodone 10 mg tablet 10 mg PO Q6H PRN pain #10 tabs 12/05/24 oxycodone 5 mg tablet 5 mg PO Q8H PRN pain (scale score 02/24/25 7-10) 3 days #9 tabs Allergies Allergy/AdvReac Type Severity Reaction Status Date / Time No Known Allergies (No Known Allergy Verified 02/24/25 12:30 Allergies*) Review of Systems Review of Systems: Yes all other systems are reviewed and are negative [facility] Past Medical History Attestation statement: The following information was validated with the patient. Source: old records reviewed and nursing notes reviewed Medical History TIA (transient ischemic attack) CVA (cerebral vascular accident) Hypertension FH: breast cancer in first degree relative Abnormal Pap smear of cervix Ovarian cyst Depression Surgical History H/O prior ablation treatment Hx of tubal ligation History of removal of ovarian cyst Family History Family History Paternal Aunt Breast cancer Sister Breast cancer, Onset Age: 46 Social History Social History Household Members: Children Housing: Apartment Housing Other:: lives with adult child in 3rd floor apt Do you presently have visiting nurse or other home services: No Alcohol intake: never Comment: Pt refuses alarms-ambulating independently Patient Tobacco Use Status: Never used Tobacco e-Cigarette/Vaping Use: Never Used Advance Directives Date on File: 05/09/21 service: No Current occupational status: disabled Gender identity: Female Physical Exam ED Vital Signs: Vital Signs - 24 hr 02/24/25 12:30 02/24/25 16:45 02/24/25 18:37 Temperature 97.5 F Pulse Rate 80 69 61 Respiratory Rate 16 16 Blood Pressure 146/67 H 137/88 143/80 H Pulse Oximetry 95 98 Oxygen Delivery Method Room Air Room Air 02/24/25 18:37 02/24/25 18:37 02/24/25 20:26 Temperature 96.8 F Pulse Rate 65 72 58 Respiratory Rate 12 Blood Pressure 130/65 134/73 121/48 L Pulse Oximetry 100 Oxygen Delivery Method Room Air 02/24/25 20:55 Temperature 96.8 F Pulse Rate 58 Respiratory Rate 12 Blood Pressure 121/48 L Pulse Oximetry 100 Oxygen Delivery Method Room Air BMI result Body Mass Index 32.1 Vitals signs stable hx of htn General: Well appearing, uncomfortable appearing Skin: Warm, dry, intact. No rashes or lesions. Head: Normocephalic, atraumatic. Neck: Trachea midline.? Cardiac: Chest wall symmetric. RRR. Lungs: Normal respiratory effort without accessory muscle use. Back: No midline spinous or paraspinal tenderness. No step off deformity. Ext: Upper and lower extremities atraumatic, right shoulder limited ROM with abduction/extension, left shoulder full ROM. 3/5 bench jeweler strength to R, 5/5 bench jeweler strength to L which is baseline. Neuro: AOx3. Normal speech. CN 2-12 grossly intact. cerebellum intact. Psych: Appropriate mood and affect. Responds appropriately to questions. Course Course Course Narrative: This is a rapid medical exam performed by Braden Villagran NP: Additional HPI, ROS, PE not included below will be deferred to primary provider. Patient is a 54-year-old female with history of CVA with subsequent R sided weakness, HTN, obesity presenting to the ED with complaint of dizziness upon standing, acute on chronic worsening of right shoulder pain. Has ortho appointment in Apr. Plan: ekg, labs Reevaluation(s) Reevaluation #1: CBC without leukocytosis or left shift. Normocytic anemia, H and H stable, above transfusion threshold. Chemistry without acute electrolyte abnormality requiring intervention. BUN slightly elevated at 23, normal creatinine. Random glucose 308. No anion gap. Liver function at baseline. Troponin undetectable. X-ray right shoulder unremarkable. > exam findings concerning for rotator cuff injury. Patient seen for similar a few months ago. Prescribed oxycodone with relief, will trial this today. She does have follow up with ortho in March. advised to touch base with them. > ortho vitals postive, >10 drop in DBP. 1L fluids ordered. Medications Administered Discontinued Medications Generic Name Dose Route Start Last Admin Trade Name Freq PRN Reason Stop Dose Admin Sodium Chloride 1,000 mls @ 999 mls/hr 02/24/25 18:45 02/24/25 19:59 Ns IV 02/24/25 19:45 999 mls/hr .Q1H1M ANIA Administration Oxycodone HCl 5 mg 02/24/25 17:27 02/24/25 17:49 Oxycodone Hcl Immed Release 5 Mg Tablet PO 02/24/25 17:28 5 mg ONCE ONE Administration Medical Decision Making Differential Diagnosis Differential Diagnoses: The differential diagnosis associated with the presentation includes as above. Admission/Observation not indicated. Lab Data MDM Lab Attestation statement: I reviewed the patient's lab results. as above. 02/24/25 13:01 02/24/25 13:01 Labs: Lab Results 02/24/25 Range/Units 13:01 WBC 6.6 (4.8-10.8) X10*3/uL RBC 4.01 L (4.20-5.50) X10*6/uL Hgb 10.9 L (12.0-16.0) g/dl Hct 32.4 L (37.0-47.0) % MCV 80.8 (80.0-98.0) fL MCH 27.2 (27.0-33.0) pg MCHC 33.6 (31.0-35.0) g/dl RDW 13.7 (11.0-16.0) % Plt Count 261 (160-400) X10*3/uL MPV 9.7 (9.4-12.3) fL Immature Gran % (Auto) 0.5 H (0.0-0.4) % Neut % (Auto) 75.9 H (45-73) % Lymph % (Auto) 16.9 L (20-40) % Hubbard % (Auto) 4.7 (2-11) % Eos % (Auto) 1.5 (0-4) % Baso % (Auto) 0.5 (0-2) % Lymph # (Auto) 1.1 L (1.2-4.9) X10*3/uL Hubbard # (Auto) 0.3 (0.1-1.2) X10*3/uL Eos # (Auto) 0.1 (0.0-0.4) X10*3/uL Baso # (Auto) 0.0 (0.0-0.2) X10*3/uL Abs Immat Gran (auto) 0.03 (0.00-0.03) X10*3/uL Absolute Neuts (auto) 5.0 (2.0-8.3) x10*3/uL Absolute Nucleated RBC 0.000 (0.0-0.012) X10*3/uL Nucleated RBC % (auto) 0.0 (0.0-0.2) /100WBC Sodium 139 (135-145) mmol/L Potassium 4.4 (3.3-5.1) mmol/L Chloride 103 (96-108) mmol/L Carbon Dioxide 27 (22-29) mmol/L Anion Gap 13 (12-20) BUN 23 H (9-16) mg/dL Creatinine 1.20 (0.5-1.4) mg/dL Estim Creat Clear Calc 60.6 Estimated GFR 47 Random Glucose 308 H (60-115) mg/dL Calcium 9.3 (8.4-10.2) mg/dL Total Bilirubin 0.3 (0.0-1.0) mg/dL AST 22 (5-31) U/L ALT 25 (0-31) U/L Alkaline Phosphatase 92 (39-117) U/L Troponin I High Sens < 2.7 (<3.5-17.0) ng/L Total Protein 7.5 (6.5-8.0) g/dL Albumin 4.5 (3.5-5.0) g/dL Independent Interpretation I performed an independent interpretation of an: EKG and Plain X-Ray Interpretation: xr right shoulder without fracture or dislocation ekg showing NSR with rate of 71 bpm, no acut ischemic changes or st elevations. Radiology Impression Discussion of test interpretation with radiology: I have reviewed the radiologist's reading. Radiologist Impression: Date of Service: 02/24/25 Procedure(s): XR shoulder RT min 2V Accession Number(s): [id number] cc: Ani Bright MD; Brianna Kent~ CLINICAL HISTORY: atraumatic right shoulder pain 3 view right shoulder Comparison: CR - XR SHOULDER RT MIN 2V - 12/05/24 12:51 EDT Findings: No fractures or dislocations. No significant arthritic change. No erosions. No radiopaque foreign body. IMPRESSION: 1. No acute findings This document has been electronically signed by: Uma Ceballos MD on 02/24/2025 18:36:17 External Record Review External record reviewed: Inpatient record Prescription Management I considered prescription management with: Pain Medication Chronic Conditions Patient?s care impacted by: Diabetes and Other (CVAs) Social Determinants Patient?s care significantly limited by Social Determinants of Health including: Other Social Determinant of Health Critical Care Time Critical Care Time Critical Care Time: No Discharge Plan Discharge Clinical Impression: Orthostatic hypotension, Pain in right shoulder Patient Disposition: Home, Self-Care Instructions: Hypotension (ED), Shoulder Pain (ED) Additional Instructions: Your work up today is reassuring. Your blood pressure dropped slightly when you transitioned from a seated to a standing position, which may be causing your dizziness. You were treated with a liter of fluids today. Make sure you are staying hydrated. The xray of your right shoulder is normal. I have suspicion for muscle injury. I have placed your right arm in a sling for comfort. Take Tylenol for pain/discomfort. I am sending oxycodone, a controlled pain medication, to your pharmacy for you to take for breakthrough pain control. Please use this with caution as opioid pain medications have addictive properties. Opioid pain medications can often cause constipation. I recommend taking this with an over the counter laxative and/or stool softener to help move your bowels. Keep your follow up appointment with ortho. Follow up with your PCP as well. They may be able to provide you with a referral to physical therapy. Return with any new or worsening symptoms. In the case of an emergency call 911. Prescriptions: New oxycodone 5 mg tablet 5 mg PO Q8H PRN (Reason: pain (scale score 7-10)) 3 Days Qty: 9 0RF Rx Instructions: Partial Fill upon patient request. No Action spironolactone 25 mg tablet 25 mg PO DAILY Qty: 90 1RF trazodone 150 mg tablet 150 mg PO BID PRN (Reason: Psychosis) oxycodone 10 mg tablet 10 mg PO Q6H PRN (Reason: pain) Qty: 10 0RF Rx Instructions: Partial Fill upon patient request. hydroxyzine HCl 50 mg tablet 50 mg PO BEDTIME sertraline 100 mg tablet 100 mg PO DAILY clopidogrel 75 mg Tablet 75 mg PO DAILY Qty: 30 0RF atorvastatin 80 mg Tablet 80 mg PO BEDTIME Qty: 90 0RF insulin lispro [Admelog U-100 Insulin lispro] 100 unit/mL Solution See Protocol subcut QIDACHS Qty: 10 0RF Protocol: Insulin Correction Scale Less than or equal to 110 ---- Give (units): 0 111 to 150 Give (units): 0 151 to 200 Give (units): 2 201 to 250 Give (units): 4 251 to 300 Give (units): 6 301 to 350 Give (units): 8 Greater than 350 Give (units): 10 Call MD if Blood Glucose > : 350 Rx Instructions: BG <111 0 units, 111-150 - 0 units, 151-200 2 units, 201-250 4 units, 251-300 6 units, 301-350 8 units, >350 10 units insulin glargine [Lantus U-100 Insulin] 100 unit/mL Solution 15 unit subcut DAILY Qty: 10 0RF doxazosin 4 mg tablet 4 mg PO BEDTIME albuterol sulfate [Ventolin HFA] 90 mcg/actuation HFA aerosol inhaler 2 inh inhalation Q6H PRN (Reason: Shortness Of Breath Or Wheezing) lisinopril-hydrochlorothiazide 20-25 mg tablet 1 tab PO DAILY carvedilol 25 mg tablet 25 mg PO BID aspirin 81 mg tablet,delayed release (DR/EC) 81 mg PO DAILY amlodipine 10 mg tablet 10 mg PO DAILY Qty: 30 0RF Referrals: Ani Bright MD [Primary Care Provider, Internal Medicine] Interventions: ED Discharge Assessment Last Done: 02/24/25 20:55 Discharge Date/Time: 02/24/25 20:56 Print Language: Kinyarwanda
--- NOTE | 2025-02-24 12:35 | ECG_ITS ---
Test Reason : DIZZINESS Blood Pressure : */* mmHG Vent. Rate : 71 BPM Atrial Rate : 71 BPM P-R Int : 158 ms QRS Dur : 68 ms QT Int : 410 ms P-R-T Axes : 55 -10 44 degrees QTcB Int : 445 ms Normal sinus rhythm Low voltage QRS Borderline ECG When compared with ECG of 05-Dec-2024 12:35, No significant change was found Referred By: Radha Villagran Electronically Signed By: JACKY JORGENSEN
[2025-02-24 13:06] LABS: MANUAL DIFF FLAG NO
[2025-02-24 13:07] LABS: Hematocrit 32.4 % (37.0-47.0); Hemoglobin 10.9 g/dl (12.0-16.0); Imm Gran Abs Auto 0.03 X10*3/uL (0.00-0.03); Imm Gran Pct Auto 0.5 % (0.0-0.4); Lymphocytes Absolute Auto 1.1 X10*3/uL (1.2-4.9); Mean Corpuscular HGB Conc 33.6 g/dl (31.0-35.0); Mean Corpuscular Hemoglobin 27.2 pg (27.0-33.0); Mean Corpuscular Volume 80.8 fL (80.0-98.0); NRBC Abs Auto 0.000 X10*3/uL (0.0-0.012); NRBC Pct Auto 0.0 /100WBC (0.0-0.2); Platelet Count 261 X10*3/uL (160-400); Red Blood Count 4.01 X10*6/uL (4.20-5.50); White Blood Count 6.6 X10*3/uL (4.8-10.8)
[2025-02-24 13:26] LABS: Alanine Aminotransferase 25 U/L (0-31); Albumin Level 4.5 g/dL (3.5-5.0); Alkaline Phosphatase 92 U/L (39-117); Anion Gap 13 (12-20); Aspartate Amino Transferase 22 U/L (5-31); Blood Urea Nitrogen 23 mg/dL (9-16); Calcium 9.3 mg/dL (8.4-10.2); Carbon Dioxide 27 mmol/L (22-29); Chloride 103 mmol/L (96-108); Creatinine Clr Calc Pharmacy 60.6; Estimated Glomerular Filt Rate 47; Potassium 4.4 mmol/L (3.3-5.1); Sodium 139 mmol/L (135-145); Total Protein 7.5 g/dL (6.5-8.0)
[2025-02-24 13:39] LABS: Troponin-I High Sensitivity < 2.7 ng/L (<3.5-17.0)
[2025-02-24 16:45] VITALS: BP 137/88; PULSE 69; RESP 16; O2SAT 98
--- OUTSIDE RECORDS SUMMARY | 2025-02-24 16:53 | XMS_ITS | Clinical Summary ---
Author Organization [facility] Address [address] [place] [address] Phone Care Team Providers Care Clinic Lpn Name Role Phone Ani Bright MD Primary [...] of 3 - 19+ 3-dose series) 1989 Pneumococcal Vaccine: 50+ Ye ars (1 of 2 - PCV) 1989 Colorectal Cancer Screening: Annual FOBT 12/21/2019 Colorectal Cancer Screening: Colonoscopy 12/21/2019 Colorectal Cancer Screening: Sigmoidoscopy 12/21/2019 Diabetes: Ophthalmology Exam 02/02/2025 Diabetes: Pedal Pulse Checked 02/02/2025 Diabetes: Sensory Foot Exam 02/02/2025 Diabetes: Visual Foot Exam 02/02/2025 Influenza Vaccine (#1) 2025 Diabetes: Hemoglobin A1C 05/04/2025 02/01/2025, 04/20 Procedures Procedure Name Priority Date/Time Associated Diagnosis Comments HEMOGLOBIN A1C Routine 05/04/2019 7:04 AM EDT from Last 3 Months or Most Recently Relevant to Health Maintenance Results * Hemoglobin A1c (05/04/2019 7:04 AM EDT) Estimated Average Glucose 103 MG/DL [facility] Comment: eAG = Estimated average glucose which is %A1C expressed as average glucose, using the formula of the F5L-Czeyddv Average Glucose study (ADAG), Diabetes Care, Vol.31,#8, Feb. 2007 Hemoglobin A1C 5.2 % [facility] Comment: Hemoglobin A1C Reference Range Adults: 4.8 - 6.0 % Non diabetic: < 6.0 % Goal: < 7.0 % Additional Action Suggested: > 8.0 % Note: Hemoglobin A1c results are invalid for patients with abnormal amounts of HbF. Blood transfusions may impact the HbA1c concentration in the patient sample. 05/04/2019 7:04 AM EDT Ani Bright MD LAB BLOOD ORDERABLES Final Result [facility] from Last 3 Months or Most Recently Relevant to Health Maintenance [place] Care Teams Clinic Lpn Relationship Specialty Start Date End Date Ani Bright MD [address] PCP - General Internal Medicine 02/28/21
--- OUTSIDE RECORDS SUMMARY | 2025-02-24 16:53 | XMS_ITS | Encounter Summary ---
Author Organization [employer] Address [address] [place] [address] Care Team Providers Care Mental Health Advanced Practice Nurse Name Role Phone Leslee Recinos MD Primary Care Provider Encounter Details Date Type Department Care Team (Late st Contact Info) Description 11/01/2024 Lab Requisition [facility] - Main Lab [address] [place] [address] Leslee Recinos MD [address] [place] [phone] Encounter for other general examination Social History [...] AM EDT) WBC 7.7 4.8 - 10.8 K/[facility] LAB HEMETOLOGY METHOD 11/01/2024 12:18 PM EDT [facility] RBC 4.50 3.80 - 4.80 M/[facility] LAB HEMETOLOGY METHOD 11/01/2024 12:18 PM EDT [facility] Hemoglobin 12.3 11.5 - 16.0 g/dL LAB HEMETOLOGY METHOD 11/01/2024 12:18 PM EDT [facility] Hematocrit 38.8 35.0 - 47.0 % LAB HEMETOLOGY METHOD 11/01/2024 12:18 PM EDT [facility] MCV 85.7 79.0 - 98.0 FL LAB HEMETOLOGY METHOD 11/01/2024 12:18 PM EDT [facility] MCH 27.2 27.0 - 32.0 pcg LAB HEMETOLOGY METHOD 11/01/2024 12:18 PM EDT [facility] MCHC 31.7(L) 32.0 - 37.0 g/dL LAB HEMETOLOGY METHOD 11/01/2024 12:18 PM EDT [facility] RDW 13.2 11.0 - 15.0 % LAB HEMETOLOGY METHOD 11/01/2024 12:18 PM EDT [facility] Platelets 301 130 - 400 K/mcL LAB HEMETOLOGY METHOD 11/01/2024 12:18 PM EDT [facility] MPV 10.8 7.0 - 11.0 FL LAB HEMETOLOGY METHOD 11/01/2024 12:18 PM EDT [facility] NRBC 0.0 <1.0 % LAB HEMETOLOGY METHOD 11/01/2024 12:18 PM EDT [facility] NRBC Absolute 0.00 <0.10 K/mcL LAB HEMETOLOGY METHOD 11/01/2024 12:18 PM EDT [facility] Blood Venous blood specimen / Unknown Venipuncture / Unknown 11/01/2024 6:03 AM EDT 11/01/2024 9:49 AM EDT us Leslee Recinos MD LAB BLOOD ORDERABLES Final Resu lt [facility] [address] [place] [address], * (ABNORMAL) Basic metabolic panel (11/01/2024 6:03 AM EDT) Sodium 141 133 - 145 mmol/L LAB CHEMISTRY METHOD 11/01/2024 12:[address] [facility] Potassium 4.5 3.5 - 5.5 mmol/L LAB CHEMISTRY METHOD 11/01/2024 12:[address] [facility] Chloride 105 96 - 110 mmol/L LAB CHEMISTRY METHOD 11/01/2024 12:[address] [facility] CO2 28 21 - 32 mmol/L LAB CHEMISTRY METHOD 11/01/2024 12:[address] [facility] Anion Gap 8 3 - 11 LAB CHEMISTRY METHOD 11/01/2024 12:[address] [facility] Glucose 106(H) 70 - 100 mg/dL LAB CHEMISTRY METHOD 11/01/2024 12:[address] [facility] BUN 14 5 - 25 mg/dL LAB CHEMISTRY METHOD 11/01/2024 12:[address] [facility] Creatinine 1.03 0.50 - 1.10 mg/dL LAB CHEMISTRY METHOD 11/01/2024 12:[address] [facility] eGFR 65 >=60 mL/min/1. 73m2 LAB CHEMISTRY METHOD 11/01/2024 12:[address] [facility] Comment:Calculation based on the Chronic Kidney Disease Epidemiology Collaboration (CKD-EPI) equation refit without adjustment for race. BUN/Creatinine Ratio 13.6 LAB CHEMISTRY METHOD 11/01/2024 12:[address] [facility] Calcium 9.5 8.5 - 10.5 mg/dL LAB CHEMISTRY METHOD 11/01/2024 12:[address] [facility] Blood Venous blood specimen / Unknown Venipuncture / Unknown 11/01/2024 6:03 AM EDT 11/01/2024 9:49 AM EDT us Leslee Recinos MD LAB BLOOD ORDERABLES Final Resu lt [facility] ([facility] [address] [place] [address], documented in this encounter Visit Diagnoses Diagnosis Encounter for other general examination documented in this encounter Care Teams Mental Health Advanced Practice Nurse Relationship Specialty Start Date End Date Leslee Recinos MD [address] [place] [phone] PCP - General Hospitalist Medicine 10/19/24 documented as of this encounter
--- OUTSIDE RECORDS SUMMARY | 2025-02-24 16:53 | XMS_ITS | Clinical Summary ---
Author Organization [employer] Address [address] [place] [address] Care Team Providers Care Orchid Worker Name Role Phone Unavailable Primary Care Provider Unavailabl e Immunizations Immunization Administration Dates Next Due Influenza Injectable Quadriv [...] Panel 1970 SDOH Screening 1970 Sigmoidoscopy 1970 Disability Screening 1970 Alcohol/Substance Use Screening 1982 Tobacco Screening 1982 Hepatitis C Screening 1988 Hepatitis B Vaccines (1 of 3 - 19+ 3-dose series) 1989 Pap Smear 12/21/1991 Cervical Cancer Screening 2000 HPV/Cotest 2000 Mammogram 2010 COVID-19 Vaccine ( season) 2024 09/04/2023, 07/19/2022, 07/04/2021, Additional history exists Influenza Vaccine (#1) 2025 , 05/27/2022, 08/29/2021 DTaP/Tdap/Td Vaccines (2 - Td or Tdap) 03/20/2034 03/20/2024 RSV Patients and Patients Aged 60 years or older (1 - 1-dose 75+ series) 2045 Pneumococcal Vaccine: 50+ Years Completed 08/12/2022 Zoster Vaccines Completed 04/29/2024, 08/12/2022 HIB Vaccines [...]
[2025-02-24] MEDS: oxyCODONE HCl Immed Release 5 MG TABLET PO (17:49)
[2025-02-24 18:37] VITALS: BP 130/65; BP 134/73; BP 143/80; PULSE 61; PULSE 65; PULSE 72
--- NOTE | 2025-02-24 19:18 | PC.NURSE ---
PT requested and provided sandwich and juice- provider ok'd pt to eat
[2025-02-24 20:26] VITALS: BP 121/48; PULSE 58; RESP 12; TEMP 36; O2SAT 100
[2025-02-24 20:55] VITALS: BP 121/48; PULSE 58; RESP 12; TEMP 36; O2SAT 100
== END 2025-02-24 20:56 | disposition home or self-care (01) ==
PROVIDERS: Registered Nurse Emergency; Emergency Provider Emergency Medicine; PCP Internal Medicine
DX: M25.511 Pain in right shoulder (principal); I95.1 Orthostatic hypotension; I69.351 Hemiplegia and hemiparesis following cerebral infarction affecting right dominant side; I10 Essential (primary) hypertension; R42 Dizziness and giddiness; Z79.899 Other long term (current) drug therapy
CPT/HCPCS: 36415; 73030; 80053; 84484; 85025; 93005; 99283; 99285

== ENCOUNTER → 2025-02-24 12:35 | Outpatient (BNV) | payer MEDICARE, MEDICAID, SELFPAY | PROVIDERS: Emergency Provider Emergency Medicine; PCP Internal Medicine; Visit Provider Internal Medicine | DX: R42 Dizziness and giddiness (principal) | CPT/HCPCS: 93010 ==

== ENCOUNTER → 2025-02-24 17:58 | Outpatient (BNV) | payer MEDICARE, MEDICAID, SELFPAY | PROVIDERS: Emergency Provider Emergency Medicine; PCP Internal Medicine; Visit Provider Specialist | DX: M25.511 Pain in right shoulder (principal) | CPT/HCPCS: 73030 ==

== ENCOUNTER 2025-03-29 13:34 | Outpatient (AMB) | payer MEDICARE, MEDICAID, SELFPAY ==
--- NOTE | 2025-03-29 13:37 | A.OFFVIS_ITS ---
Vital Signs 03/29/25 13:49 Height 5 ft 6 in Weight 205 lb BMI 33.1 BP 156/94 H Blood Pressure Location Rt brachial Position Sitting Pulse 70 Pulse Source Pulse Oximeter Pulse Oximetry (%) 98 Oxygen Delivery Method Room Air Intake Visit Reasons: Re-screening. Repeat colo q6 mos. Intake Note: Est pt for recall colo screening x6 mos per Dr. Bauer (prep) CC; Pt denies any GI sx or concerns at this time. Pt does report having concerns pertaining to accessing her insulin per endocrinology as well as pain management s/p CVA. Hide Salter Required: Yes Hide Salter Services: Hide Salter Present Hide Salter [place]: Shari [phone] [place] [facility] [place] Information Interpreted: clinical only Accompanied by: Self / Same As Patient Allergies No Known Allergies (No Known Allergies*) Allergy (Verified 04/08/25 15:19) HPI HPI Re-screening. Repeat colo q6 mos.: Details: LAST VISIT: Screen for colon cancer Plan Patient denies any GI, cardiac or respiratory symptoms.? Denies any issues with anesthesia in the past.? Denies any history of sleep apnea.? No history infectious diseases in the past or present.? Patient is on low-dose aspirin.? No family or personal history of colon cancer or polyps.? Patient denies melena, hematochezia, unintentional weight loss or ribbon like stools.? Discussed at length the pre-procedure,? prep, diet & medications as well as what to expect prior, during and after the procedure.?? Stressed the importance of good bowel prep.? Recommended the use of Vaseline or Calmoseptine OTC & baby wipes with bowel movements to promote comfort.? ?Patient verbalizes understanding and agrees to plan of care.? She was given the opportunity to ask questions and all questions answered.? We will see her after the procedure.? New magnesium citrate Drink one bottle at 17:00 and 2nd bottle at 22:00 296 mL PO ONCE 296 mL 1RF constipation Z12.11 bisacodyl (Dulcolax (bisacodyl)) Start taking 2 tablet every night 6 days before the procedure and 1 day before procedure take 2 tablets at noon time followed by MiraLax prep 10 mg (2 x 5 mg) PO BEDTIME 14 tabs 0RF Z12.11 COLONOSCOPY Findings: Terminal Ileum-normal Cecum: over the appendiceal orifice there was a well circumscribed polypoid lesion measuring about 18 mm, this was gently biopsied, it did not appear to be a prolapsed appendiceal orifice. It could be a lipoma. Ascending Colon: normal Transverse Colon -normal Descending Colon: 10 mm sessile polyp removed with cold snare Sigmoid Colon: 11-12 mm sessile polyp removed with cold snare Rectum: Retroflexion with small internal hemorrhoids seen, grade I, patchy erythema and granularitiy, bx taken Anorectum - normal Intervention: cold snare, cold forceps bx Colon preparation: [place] Bowel Preparation Scale Right colon; 2 Transverse colon: 2 Left colon; 1-2 (0 = Unprepared colon segment with mucosa not seen due to solid stool that cannot be cleared. 1 = Portion of mucosa of the colon segment seen, but other areas of the colon segment not well seen due to staining, residual stool and/or opaque liquid. 2 = Minor amount of residual staining, small fragments of stool and/or opaque liquid, but mucosa of colon segment seen well. 3 = Entire mucosa of colon segment seen well with no residual staining, small fragments of stool or opaque liquid) Impression and Post Procedure Diagnosis: submucosal lesion, appendiceal orifice colon polyps internal hemorrhoids Plan: High fiber diet leaflet Avoid straining at stool, epsom salts and sitz bath, anusol supps or cream Repeat Colonoscopy in 3-6 months due to fair prep on left and x2 polyps removed or earlier if clinically indicated also will get CT scan of the A/P with contrast TODAY'S VISIT: Patient is here today for follow-up and to discuss going again for colonoscopy. Patient had suboptimal prep last colonoscopy and was asked to repeated in 3-6 months. Patient denies any GI concerning symptoms. However patient does report that occasionally she will be constipated. Not always feeling like she empties her bowels completely. No issues with anesthesia in the past. Patient is on low-dose aspirin and Plavix. Patient reports that she is worried about her blood sugar mainly and does not have an department traffic freight router. Patient denies melena, hematochezia, unintentional weight loss or ribbon like stools. Patient denies any dyspepsia, dysphagia or odynophagia. [facility] Medical History TIA (transient ischemic attack) CVA (cerebral vascular accident) Hypertension FH: breast cancer in first degree relative Abnormal Pap smear of cervix Ovarian cyst Depression Surgical History H/O prior ablation treatment Hx of tubal ligation History of removal of ovarian cyst Family History Paternal Aunt Breast cancer Sister Breast cancer, Onset Age: 46 Social History Household Members: Children Housing: Apartment Housing Other:: lives with adult child in 3rd floor apt Do you presently have visiting nurse or other home services: No Alcohol intake: never Comment: Pt refuses alarms-ambulating independently Patient Tobacco Use Status: Never used Tobacco e-Cigarette/Vaping Use: Never Used Advance Directives Date on File: 05/09/21 service: No Current occupational status: disabled Gender identity: Female Review of Systems Const Denies weight gain and Denies weight loss ENT Reports no additional complaints, Denies dysphagia and Denies odynophagia Card Reports no additional complaints Resp Reports no additional complaints GI Denies abdominal pain, Denies belching, Denies melena, Denies bloating, Denies change in bowel habits, Denies dysphagia, Denies excessive flatus, Denies dyspepsia, Denies heartburn, Denies diarrhea, Denies loose stools, Denies nausea, Denies odynophagia and Denies vomiting Musc Reports no additional complaints Neuro Reports no additional complaints Psych Reports no additional complaints Endo Reports no additional complaints Physical Exam Vital Signs: Last Vital Signs Pulse 70 03/29/25 13:49 BP 156/94 H 03/29/25 13:49 Pulse Ox 98 03/29/25 13:49 Oxygen Delivery Method Room Air 03/29/25 13:49 BMI result Body Mass Index 33.1 Const General: healthy appearing, no acute distress and well developed Nutritional Appearance: well nourished Orientation/consciousness: patient oriented x3 Resp Effort & Inspection: normal respiratory effort, able to speak in complete sentences, no tracheal deviation and symmetric chest movement Auscultation: clear to auscultation bilaterally Cardio Rate: regular rate GI Inspection: Yes normal to inspection and No distended Palpation (GI): Soft to palpation, not firm, nontender and No hepatosplenomegaly present Auscultation: normal bowel sounds General: Yes no CVA tenderness Back/Spine/Pelvis Back: no CVA tenderness Skin General skin exam: elasticity normal, turgor normal and dry skin Neuro General: patient oriented x3 Psych Appearance: grossly normal Mental Status: mental status grossly normal Assessment & Plan Assessment & Plan (1) Screen for colon cancer: Code(s): Z12.11 - Encounter for screening for malignant neoplasm of colon (2) Constipation: Code(s): K59.00 - Constipation, unspecified Qualifiers: Constipation type: slow transit constipation Qualified Code(s): K59.01 - Slow transit constipation Plan Patient will be sent to Endocrinology. Patient will check A1c before going for her appointment. What to expect before during and after procedure discussed with patient. Patient had procedure in August with suboptimal prep. She will start taking Dulcolax as needed. Definitely patient was instructed to take it for 1 week before procedure to make sure that she has a good prep. Stressed importance of good bowel prep and clear liquid diet day before procedure. Patient denies any cardiac or respiratory symptoms. Patient will follow-up with us after the procedure, sooner on as needed basis. Patient is agreeable to this plan and verbalizes understanding of instructions. She was given the opportunity to ask questions and all questions answered. Thank you for allowing me to participate in her care Orders: Orders Hemoglobin A1c 03/29/25 Z83.3 - Family history of diabetes mellitus Referrals Endocrinology Referral E11.9 - Type 2 diabetes mellitus without complications Medications: New polyethylene glycol 3350 (Miralax) As directed by gastroenterology department at [facility] 238 grams PO ONCE 238 grams 0RF Z12.11 - Encounter for screening for malignant neoplasm of colon bisacodyl (Dulcolax (bisacodyl)) 10 mg (2 x 5 mg) PO BEDTIME 180 tabs 4RF Coding Level of Care Code Est Pt Level 3 (98864) Diagnoses Screen for colon cancer Z12.11 Slow transit constipation K59.01 Constipation type: slow transit constipation Time Spent (min) 30 Comment 20 minutes spent with patient and additional 10 minutes spent reviewing her records
[2025-03-29 13:49] VITALS: BP 156/94; PULSE 70; O2SAT 98; BMI 33.1
--- OUTSIDE RECORDS SUMMARY | 2025-03-29 16:05 | XMS_ITS | Clinical Summary ---
Author Organization [employer] Address [address] 7[address] [place] [address] Care Team Providers Care Lobbyist Name Role Phone Unavailable Primary Care Provider [...] 2000 Mammogram 2010 COVID-19 Vaccine ( season) 2025 09/04/2023, 07/19/2022, 07/04/2021, Additional history exists Influenza [...] patient's age to complete this topic Insurance [facility] STANDARD
--- OUTSIDE RECORDS SUMMARY | 2025-03-29 16:05 | XMS_ITS | Encounter Summary ---
Author Organization [employer] Address [address] [place] [address] Care Team Providers Care Badger Distiller Operator Name Role Phone Leslee Recinos MD Primary Care Provider Encounter Details Date Type Department Care Team (Late st Contact Info) Description 10/25/2024 Lab Requisition [facility] - Main Lab [address] [place] [address] Leslee Recinos MD [address] [place] [phone] Encounter for other general examination Social History [...] LAB CHEMISTRY METHOD 10/25/2024 8:46 AM EDT [facility] Blood Venous blood specimen / Unknown 10/25/2024 5:48 AM EDT 10/25/2024 8:11 AM EDT us Leslee Recinos MD LAB BLOOD ORDERABLES Final Resu lt [facility] [address] [place] [address], [place] [phone] * (ABNORMAL) Complete blood count (10/25/2024 5:48 [...] Resu lt [facility] [address] [place] [address], * (ABNORMAL) Basic metabolic panel (10/25/2024 5:48 AM EDT) Sodium 135 133 - 145 mmol/L LAB CHEMISTRY METHOD 10/25/2024 8:46 AM [facility] Potassium 4.1 3.5 - 5.5 mmol/L LAB CHEMISTRY METHOD 10/25/2024 8:46 AM [facility] Chloride 98 96 - 110 mmol/L LAB CHEMISTRY METHOD 10/25/2024 8:46 AM [facility] CO2 28 21 - 32 mmol/L LAB CHEMISTRY METHOD 10/25/2024 8:46 AM [facility] Anion Gap 9 3 - 11 LAB CHEMISTRY METHOD 10/25/2024 8:46 AM [facility] Glucose 157(H) 70 - 100 mg/dL LAB CHEMISTRY METHOD 10/25/2024 8:46 AM [facility] BUN 24 5 - 25 mg/dL LAB CHEMISTRY METHOD 10/25/2024 8:46 AM EDT [facility] Creatinine 1.10 0.50 - 1.10 mg/dL LAB CHEMISTRY METHOD 10/25/2024 8:46 AM EDT [facility] eGFR 60 >=60 mL/min/1. 73m2 LAB CHEMISTRY METHOD 10/25/2024 8:46 AM EDT [facility] Comment:Calculation based on the Chronic Kidney Disease Epidemiology Collaboration (CKD-EPI) equation refit without adjustment for race. BUN/Creatinine Ratio 21.8 LAB CHEMISTRY METHOD 10/25/2024 8:46 AM T [facility] Calcium 9.8 8.5 - 10.5 mg/dL LAB CHEMISTRY METHOD 10/25/2024 8:46 AM T [facility] Blood Venous blood specimen / Unknown 10/25/2024 5:48 AM EDT 10/25/2024 8:11 AM EDT us Leslee Recinos MD LAB BLOOD ORDERABLES Final Resu lt [facility] [address] [place] [address], documented in this encounter Visit Diagnoses Diagnosis Encounter for other general examination documented in this encounter Care Teams Badger Distiller Operator Relationship Specialty Start Date End Date Leslee Recinos MD [address] [place] [phone] PCP - General Hospitalist Medicine 10/19/24 documented as of this encounter
--- OUTSIDE RECORDS SUMMARY | 2025-03-29 16:05 | XMS_ITS | Encounter Summary ---
Author Organization [employer] Address [address] [place] [address] Care Team Providers Care Licensed Prosthetist/Orthotist Name Role Phone Leslee Recinos MD Primary Care Provider Encounter Details Date Type Department Care Team (Late st Contact Info) Description 10/19/2024 Lab Requisition [facility] - Main Lab [address] [facility] [employer] [place] [address] Leslee Recinos MD [address] [place] [phone] Encounter for other general examination Social History [...] AM EDT) WBC 7.9 4.8 - 10.8 K/[facility] LAB HEMETOLOGY METHOD 10/19/2024 10:31 AM [place] [...] MD LAB BLOOD ORDERABLES Final Resu lt [facility] [address] [place] [address], [place] [phone] * Magnesium (10/19/2024 5:40 AM EDT) Pathologist [facility] Magnesium 2.1 1.9 - 2.6 mg/dL LAB CHEMISTRY METHOD 10/19/2024 12:03 PM EDT [facility] Blood Venous blood specimen / Unknown Venipuncture / Unknown 10/19/2024 5:40 AM EDT 10/19/2024 9:43 AM EDT us Leslee Recinos MD LAB BLOOD ORDERABLES Final Resu lt Performing Organization Address City/[facility]/ZIP Co de Phone Number [facility] [address] [place] [address], [place] [phone] * (ABNORMAL) Comprehensive metabolic panel (10/19/2024 5:40 AM EDT) [facility] Sodium 136 133 - 145 mmol/L [...] [facility] Comment:Calculation based on the Chronic Kidney Disease Epidemiology Collaboration (CKD-EPI) equation refit without adjustment for race. BUN/Creatinine Ratio 23.1 LAB [...] MD LAB BLOOD ORDERABLES Final Resu lt [facility] [address] [place] [address], documented in this encounter Visit Diagnoses Diagnosis Encounter for other general examination documented in this encounter Care Teams Licensed Prosthetist/Orthotist Relationship Specialty Start Date End Date Leslee Recinos MD [address] [place] [phone] PCP - General Hospitalist Medicine 10/19/24 documented as of this encounter
--- OUTSIDE RECORDS SUMMARY | 2025-03-29 16:05 | XMS_ITS | Encounter Summary ---
Author Organization [employer] Address [address] [place] [address] Care Team Providers Care Drapery Rod Assembler Name Role Phone Leslee Recinos MD Primary Care Provider Encounter Details Date Type Department Care Team (Late st Contact Info) Description 10/23/2024 Lab Requisition [facility] - Main Lab [address] [place] [address] Leslee Recinos MD [address] [place] [phone] Encounter for other general examination Social History [...] LAB CHEMISTRY METHOD 10/23/2024 1:30 PM EDT [facility] Blood Venous blood specimen / Unknown Venipuncture / Unknown 10/23/2024 11:18 AM EDT 10/23/2024 12:58 PM EDT Leslee Recinos MD LAB BLOOD ORDERABLES Final Resu lt [facility] [address] [place] [address], * (ABNORMAL) Basic metabolic panel (10/23/2024 11:18 AM EDT) Sodium 137 133 - 145 mmol/L LAB CHEMISTRY METHOD 10/23/2024 1:[address] [facility] Potassium 4.5 3.5 - 5.5 mmol/L LAB CHEMISTRY METHOD 10/23/2024 1:[address] [facility] Chloride 101 96 - 110 mmol/L LAB CHEMISTRY METHOD 10/23/2024 1:[address] [facility] CO2 29 21 - 32 mmol/L LAB CHEMISTRY METHOD 10/23/2024 1:[address] [facility] Anion Gap 7 3 - 11 LAB CHEMISTRY METHOD 10/23/2024 1:[address] [facility] Glucose 148(H) 70 - 100 mg/dL LAB CHEMISTRY METHOD 10/23/2024 1:[address] [facility] BUN 27(H) 5 - 25 mg/dL LAB CHEMISTRY METHOD 10/23/2024 1:[address] [facility] Creatinine 1.16(H) 0.50 - 1.10 mg/dL LAB CHEMISTRY METHOD 10/23/2024 1:[address] [facility] eGFR 56(L) >=60 mL/min/1. 73m2 LAB CHEMISTRY METHOD 10/23/2024 1:[address] [facility] Comment:Calculation based on the Chronic Kidney Disease Epidemiology Collaboration (CKD-EPI) equation refit without adjustment for race. BUN/Creatinine Ratio 23.3 LAB CHEMISTRY METHOD 10/23/2024 1:[address] [facility] Calcium 10.0 8.5 - 10.5 mg/dL LAB CHEMISTRY METHOD 10/23/2024 1:[address] [facility] Blood Venous blood specimen / Unknown Venipuncture / Unknown 10/23/2024 11:18 AM EDT 10/23/2024 12:58 PM EDT us Leslee Recinos MD LAB BLOOD ORDERABLES Final Resu lt [facility] [address] [place] [address], documented in this encounter Visit Diagnoses Diagnosis Encounter for other general examination documented in this encounter Care Teams Drapery Rod Assembler Relationship Specialty Start Date End Date Leslee Recinos MD [address] [place] [phone] PCP - General Hospitalist Medicine 10/19/24 documented as of this encounter
--- OUTSIDE RECORDS SUMMARY | 2025-03-29 16:05 | XMS_ITS | Clinical Summary ---
Author Organization [facility] Address [address] [place] [address] Phone Care Team Providers Care Special Effects Technician Name Role Phone Ani Bright MD Primary [...] average glucose, using the formula of the [id number] Average Glucose study (ADAG), Diabetes Care, Vol.31,#8, [...] Bright MD LAB BLOOD ORDERABLES Final [facility] Last 3 Months or Most Recently Relevant to Health Maintenance Insurance Medicaid [place] Medicaid [place] Care Teams Special Effects Technician Relationship Specialty Start Date End Date Ani Bright MD [address] PCP - General Internal Medicine 02/28/21
--- OUTSIDE RECORDS SUMMARY | 2025-03-29 16:05 | XMS_ITS | Clinical Summary ---
Author Organization [address] [facility] Address [address] [place] [address] Phone Care Team Providers Care Off Track Betting Manager Name Role Phone Leslee Recinos MD Primary Care Provider [phone] Social History Tobacco Use Types Packs/Day Years Used Date Smoking Tobacco: Never Assessed Comments Unknown Sex and Gender Information Value Date Recorded Sex Assigned at Not on file Legal Sex Female 11:13 AM EST Gender Identity Not on file Sexual Orientation Not on file Plan of Treatment Health Maintenance Due Date Last Done Comments Breast Cancer Screening 1970 Diabetes: Annual Foot Exam 1980 Diabetes: Annual Retina Eye Exam 1980 DTaP,Tdap,and Td Vaccines (1 - Tdap) 1989 Hepatitis B Vaccines (1 of 3 - 19+ 3-dose series) 1989 Cervical Cancer Screening: Pap Smear 12/21/1991 Zoster Vaccines (2 of 2) 10/07/2022 08/12/2022 Depression Screening 07/21/2024 Colorectal Cancer Screening: Colonoscopy 10/19/2024 HIV Screening 10/19/2024 Hepatitis C Screening 10/19/2024 Medicare Annual Wellness Visit 10/19/2024 Social Influencers of Health Screening 10/19/2024 Diabetes: Annual Urine Albumin-Creatinine Ratio (uACR) 02/03/2025 COVID-19 Vaccine ( season) 2025 09/04/2023, 07/19/2022, 01/29/2021 Influenza Vaccine (#1) 2025 05/27/2022, 2021 Diabetes: Blood Sugar Control Test (HGBA1C) 08/04/2025 02/01/2025 Diabetes: Annual GFR (Glomerular Filtration Rate) 02/01/2026 02/01/2025, 11/01/2024, 10/25/2024, Additional history exists Hypertension/CHF/CAD Annual BMP Blood Test 02/01/2026 02/01/2025, 11/01/2024, 10/25/2024, Additional history exists Cholesterol Screening (Lipid Panel) 02/01/2030 02/01/2025 Pneumococcal Vaccine: 50+ Years Completed 08/12/2022 HIB Vaccines Aged Out No longer [...] Procedure Name Priority Date/Time Associated Diagnosis Comments BASIC METABOLIC PANEL Routine 11/01/2024 6:03 AM EDT Encounter for other general examination from Last 3 Months or Most Recently Relevant to Health Maintenance Results * (ABNORMAL) Basic metabolic panel (11/01/2024 6:03 AM EDT) Sodium 141 133 - 145 mmol/L LAB CHEMISTRY METHOD 11/01/2024 12:36 PM EDT [facility] Potassium 4.5 3.5 - 5.5 mmol/L LAB CHEMISTRY METHOD 11/01/2024 12:36 PM [facility] Chloride 105 96 - 110 mmol/L LAB CHEMISTRY METHOD 11/01/2024 12:36 PM [facility] CO2 28 21 - 32 mmol/L LAB CHEMISTRY METHOD 11/01/2024 12:36 PM [facility] Anion Gap 8 3 - 11 LAB CHEMISTRY METHOD 11/01/2024 12:36 PM EDT [facility] Glucose 106(H) 70 - 100 mg/dL LAB CHEMISTRY METHOD 11/01/2024 12:36 PM EDT [facility] BUN 14 5 - 25 mg/dL LAB CHEMISTRY METHOD 11/01/2024 12:36 PM EDT [facility] Creatinine 1.03 0.50 - 1.10 mg/dL LAB CHEMISTRY METHOD 11/01/2024 12:36 PM EDT [facility] eGFR 65 >=60 mL/min/1. 73m2 LAB CHEMISTRY METHOD 11/01/2024 12:36 PM EDT [facility] Comment:Calculation based on the Chronic Kidney Disease Epidemiology Collaboration (CKD-EPI) equation refit without adjustment for race. BUN/Creatinine Ratio 13.6 LAB CHEMISTRY METHOD 11/01/2024 12:36 PM EDT [facility] Calcium 9.5 8.5 - 10.5 mg/dL LAB CHEMISTRY METHOD 11/01/2024 12:36 PM EDT [facility] Blood Venous blood specimen / Unknown Venipuncture / Unknown 11/01/2024 6:03 AM EDT 11/01/2024 9:49 AM EDT us Leslee Recinos MD LAB BLOOD ORDERABLES Final Resu lt [facility] [address] [place] [address], from Last 3 Months or Most Recently Relevant to Health Maintenance Insurance MEDICARE MEDICAID - [place] Care Teams Off Track Betting Manager Relationship Specialty Start Date End Date Leslee Recinos MD [address] [place] [phone] PCP - General Hospitalist Medicine 10/19/24
--- OUTSIDE RECORDS SUMMARY | 2025-03-29 16:05 | XMS_ITS | Encounter Summary ---
Author Organization [employer] Address [address] [place] [address] Care Team Providers Care Wholesale Diamond Broker Name Role Phone Leslee Recinos MD Primary Care Provider Encounter Details Date Type Department Care Team (Late st Contact Info) Description 10/21/2024 Lab Requisition [facility] - Main Lab [address] [place] [address] Leslee Recinos MD [address] [place] [address] Encounter for other general examination Social History [...] LAB CHEMISTRY METHOD 10/21/2024 10:09 AM EDT [facility] Blood Venous blood specimen / Unknown Venipuncture / Unknown 10/21/2024 5:40 AM EDT 10/21/2024 8:40 AM EDT us Leslee Recinos MD LAB BLOOD ORDERABLES Final Resu lt [facility] [address] [place] [address], documented in this encounter Visit Diagnoses Diagnosis Encounter for other general examination documented in this encounter Care Teams Wholesale Diamond Broker Relationship Specialty Start Date End Date Leslee Recinos MD [address] [place] [phone] PCP - General Hospitalist Medicine 10/19/24 documented as of this encounter
--- OUTSIDE RECORDS SUMMARY | 2025-03-29 16:05 | XMS_ITS | Encounter Summary ---
Author Organization [employer] Address [address] [place] [address] Care Team Providers Care Information Technology Advisor Name Role Phone Leslee Recinos MD Primary Care Provider Encounter Details Date Type Department Care Team (Late st Contact Info) Description 11/01/2024 Lab Requisition [facility] - Main Lab [address] [place] [address] Leslee Recinos MD [address] [place] [address] Encounter for other general examination Social History [...] AM EDT) WBC 7.7 4.8 - 10.8 K/[facility] LAB HEMETOLOGY METHOD 11/01/2024 12:18 PM EDT [facility] RBC 4.50 3.80 - 4.80 M/[facility] LAB HEMETOLOGY METHOD 11/01/2024 12:18 PM EDT [...] Resu lt [facility] [address] [place] [address], * (ABNORMAL) Basic metabolic panel (11/01/2024 6:03 AM EDT) Sodium 141 133 - 145 mmol/L LAB CHEMISTRY METHOD 11/01/2024 12:[address] [facility] Potassium 4.5 3.5 - 5.5 mmol/L LAB CHEMISTRY METHOD 11/01/2024 12:[address] [facility] Chloride 105 96 - 110 mmol/L LAB CHEMISTRY METHOD 11/01/2024 12:[address] [facility] CO2 28 21 - 32 mmol/L LAB CHEMISTRY METHOD 11/01/2024 12:[address] [facility] Anion Gap 8 3 - 11 LAB CHEMISTRY METHOD 11/01/2024 12:[address] [facility] Glucose 106(H) 70 - 100 mg/dL LAB CHEMISTRY METHOD 11/01/2024 12:[address] [facility] BUN 14 5 - 25 mg/dL LAB CHEMISTRY METHOD 11/01/2024 12:[address] [facility] Creatinine 1.03 0.50 - 1.10 mg/dL LAB CHEMISTRY METHOD 11/01/2024 12:[address] [facility] eGFR 65 >=60 mL/min/1. 73m2 LAB CHEMISTRY METHOD 11/01/2024 12:[address] [facility] Comment:Calculation based on the Chronic Kidney Disease Epidemiology Collaboration (CKD-EPI) equation refit without adjustment for race. BUN/Creatinine Ratio 13.6 LAB CHEMISTRY METHOD 11/01/2024 12:[address] [facility] Calcium 9.5 8.5 - 10.5 mg/dL LAB CHEMISTRY METHOD 11/01/2024 12:[address] [facility] Blood Venous blood specimen / Unknown Venipuncture / Unknown 11/01/2024 6:03 AM EDT 11/01/2024 9:49 AM EDT us Leslee Recinos MD LAB BLOOD ORDERABLES Final Resu lt [facility] [address] [place] [address], documented in this encounter Visit Diagnoses Diagnosis Encounter for other general examination documented in this encounter Care Teams Information Technology Advisor Relationship Specialty Start Date End Date Leslee Recinos MD [address] [place] [phone] PCP - General Hospitalist Medicine 10/19/24 documented as of this encounter
== END 2025-03-29 14:19 | disposition home or self-care (01) ==
LOC: HO.HGI 13:34
PROVIDERS: PCP Internal Medicine; Visit Provider Nurse Practitioner Family
DX: K59.01 Slow transit constipation (principal); Z12.11 Encounter for screening for malignant neoplasm of colon
CPT/HCPCS: 99213

== ENCOUNTER → 2025-03-29 13:34 | Outpatient (BNVA) | payer MEDICARE, MEDICAID, SELFPAY | PROVIDERS: PCP Internal Medicine; Visit Provider Nurse Practitioner Family | DX: K59.01 Slow transit constipation (principal); Z12.11 Encounter for screening for malignant neoplasm of colon | CPT/HCPCS: 99212 ==

== ENCOUNTER 2025-03-30 12:34 | Outpatient (REF) | payer MEDICARE, MEDICAID, SELFPAY ==
[2025-03-30 13:16] LABS: Anion Gap 13 (12-20); Blood Urea Nitrogen 18 mg/dL (9-16); Calcium 9.3 mg/dL (8.4-10.2); Carbon Dioxide 26 mmol/L (22-29); Chloride 104 mmol/L (96-108); Estimated Glomerular Filt Rate 55; Potassium 4.1 mmol/L (3.3-5.1); Sodium 139 mmol/L (135-145)
[2025-03-30 13:59] LABS: Appearance Urine Clear; Glucose Urine UA >=1000 mg/dL (Negative); PH 5.5 (5.0-9.0); Specific Gravity - Urine 1.025 (1.005-1.025); UMIC TRIGGER UA YES
--- OUTSIDE RECORDS SUMMARY | 2025-03-30 15:29 | XMS_ITS | Encounter Summary ---
Author Organization [employer] Address [address] [place] [address] Care Team Providers Care Contractor Broomcorn Threshing Name Role Phone Leslee Recinos MD Primary Care Provider Encounter Details Date Type Department Care Team (Late st Contact Info) Description 11/01/2024 Lab Requisition [facility] - Main Lab [address] [place] [address] Leslee Recinos MD [address] [place] [address] Encounter for other general examination Social History [...] AM EDT) WBC 7.7 4.8 - 10.8 K/[facility] LAB HEMETOLOGY METHOD 11/01/2024 12:18 PM EDT [facility] RBC 4.50 3.80 - 4.80 M/[facility] LAB HEMETOLOGY METHOD 11/01/2024 12:18 PM EDT [facility] Hemoglobin 12.3 11.5 - 16.0 g/dL LAB HEMETOLOGY METHOD 11/01/2024 12:18 PM EDT [facility] Hematocrit 38.8 35.0 - 47.0 % LAB HEMETOLOGY METHOD 11/01/2024 12:18 PM EDT [facility] MCV 85.7 79.0 - 98.0 FL LAB HEMETOLOGY METHOD 11/01/2024 12:18 PM EDT [facility] MCH 27.2 27.0 - 32.0 pcg LAB HEMETOLOGY METHOD 11/01/2024 12:18 PM EDT [facility] MCHC 31.7(L) 32.0 - 37.0 g/dL LAB HEMETOLOGY METHOD 11/01/2024 12:18 PM EDT [facility] RDW 13.2 11.0 - 15.0 % LAB HEMETOLOGY METHOD 11/01/2024 12:18 PM EDT [facility] Platelets 301 130 - 400 K/mcL LAB HEMETOLOGY METHOD 11/01/2024 12:18 PM EDT [facility] MPV 10.8 7.0 - 11.0 FL LAB HEMETOLOGY METHOD 11/01/2024 12:18 PM EDT [facility] NRBC 0.0 <1.0 % LAB HEMETOLOGY METHOD 11/01/2024 12:18 PM EDT [facility] NRBC Absolute 0.00 <0.10 K/mcL LAB HEMETOLOGY METHOD 11/01/2024 12:18 PM EDT [facility] Blood Venous blood specimen / Unknown Venipuncture / Unknown 11/01/2024 6:03 AM EDT 11/01/2024 9:49 AM EDT us Leslee Recinos MD LAB BLOOD ORDERABLES Final Resu lt [facility] [address] [place] [address], * (ABNORMAL) Basic metabolic panel (11/01/2024 6:03 AM EDT) Sodium 141 133 - 145 mmol/L LAB CHEMISTRY METHOD 11/01/2024 12:36 PM [facility] Potassium 4.5 3.5 - 5.5 mmol/L LAB CHEMISTRY METHOD 11/01/2024 12:36 PM [facility] Chloride 105 96 - 110 mmol/L LAB CHEMISTRY METHOD 11/01/2024 12:36 PM [facility] CO2 28 21 - 32 mmol/L LAB CHEMISTRY METHOD 11/01/2024 12:36 PM [facility] Anion Gap 8 3 - 11 LAB CHEMISTRY METHOD 11/01/2024 12:36 PM [facility] Glucose 106(H) 70 - 100 mg/dL LAB CHEMISTRY METHOD 11/01/2024 12:36 PM [facility] BUN 14 5 - 25 mg/dL LAB CHEMISTRY METHOD 11/01/2024 12:36 PM [facility] Creatinine 1.03 0.50 - 1.10 mg/dL LAB CHEMISTRY METHOD 11/01/2024 12:36 PM [facility] eGFR 65 >=60 mL/min/1. 73m2 LAB CHEMISTRY METHOD 11/01/2024 12:36 PM [facility] Comment:Calculation based on the Chronic Kidney Disease Epidemiology Collaboration (CKD-EPI) equation refit without adjustment for race. BUN/Creatinine Ratio 13.6 LAB CHEMISTRY METHOD 11/01/2024 12:36 PM [facility] Calcium 9.5 8.5 - 10.5 mg/dL LAB CHEMISTRY METHOD 11/01/2024 12:36 PM [facility] Blood Venous blood specimen / Unknown Venipuncture / Unknown 11/01/2024 6:03 AM EDT 11/01/2024 9:49 AM EDT us Leslee Recinos MD LAB BLOOD ORDERABLES Final Resu lt [facility] [address] [place] [address], documented in this encounter Visit Diagnoses Diagnosis Encounter for other general examination documented in this encounter Care Teams Contractor Broomcorn Threshing Relationship Specialty Start Date End Date Leslee Recinos MD [address] [place] [address] PCP - General Hospitalist Medicine 10/19/24 documented as of this encounter
--- OUTSIDE RECORDS SUMMARY | 2025-03-30 15:29 | XMS_ITS | Clinical Summary ---
Author Organization [employer] Address [address] [facility] [address] [place] [address] Care Team Providers Care Principle Industrial Hygienist Name Role Phone Unavailable Primary Care Provider [...] patient's age to complete this topic Insurance [facility] STANDARD
--- OUTSIDE RECORDS SUMMARY | 2025-03-30 15:30 | XMS_ITS | Clinical Summary ---
Author Organization [facility] Address [address] [place] [address] Phone Care Team Providers Care Hydro Generation Manager Name Role Phone Ani Bright MD Primary Care Provider [phone] Allergies No known active allergies Medications amLODIPine [...] average glucose, using the formula of the P5P-Amrjujq Average Glucose study (ADAG), Diabetes Care, Vol.31,#8, [...] Bright MD LAB [facility]LOOD ORDERABLES [facility] Last 3 Months or Most Recently Relevant to Health Maintenance [place] Care Teams Hydro Generation Manager Relationship Specialty Start Date End Date Ani Bright MD [address] PCP - General Internal Medicine 02/28/21
--- OUTSIDE RECORDS SUMMARY | 2025-03-30 15:30 | XMS_ITS | Encounter Summary ---
Author Organization [employer] Address [address] [place] [address] Care Team Providers Care Tile Machine Operator Name Role Phone Leslee Recinos MD Primary Care Provider Encounter Details Date Type Department Care Team (Late st Contact Info) Description 10/25/2024 Lab Requisition [facility] - Main Lab [address] [place] [address] Leslee Recinos MD [address] [place] [address] Encounter for other general examination Social History [...] LAB CHEMISTRY METHOD 10/25/2024 8:46 AM EDT [facility]) [facility] Blood Venous blood specimen / Unknown 10/25/2024 5:48 AM EDT 10/25/2024 8:11 AM EDT us Leslee Recinos MD LAB BLOOD ORDERABLES Final Resu lt [facility] [address] [place] [address], [place] [phone] * (ABNORMAL) Complete blood count (10/25/2024 5:48 AM EDT) WBC 5.9 4.8 - 10.8 K/mcL LAB HEMETOLOGY METHOD 10/25/2024 8:40 AM EDT [facility] RBC 4.80 3.80 - 4.80 M/mcL LAB HEMETOLOGY METHOD 10/25/2024 8:40 AM EDT [facility] Hemoglobin 12.9 11.5 - 16.0 g/dL LAB HEMETOLOGY METHOD 10/25/2024 8:40 AM EDT [facility] Hematocrit 40.0 35.0 - 47.0 % LAB HEMETOLOGY METHOD 10/25/2024 8:40 AM EDT [facility] MCV 83.7 79.0 - 98.0 FL LAB HEMETOLOGY METHOD 10/25/2024 8:40 AM EDT [facility] MCH 27.0 27.0 - 32.0 pcg LAB HEMETOLOGY METHOD 10/25/2024 8:40 AM EDT [facility] MCHC 32.3 32.0 - 37.0 g/dL LAB HEMETOLOGY METHOD 10/25/2024 8:40 AM EDT [facility] RDW 13.1 11.0 - 15.0 % LAB HEMETOLOGY METHOD 10/25/2024 8:40 AM EDT [facility] Platelets 287 130 - 400 K/mcL LAB HEMETOLOGY METHOD 10/25/2024 8:40 AM EDT [facility] MPV 11.2(H) 7.0 - 11.0 FL LAB HEMETOLOGY METHOD 10/25/2024 8:40 AM EDT [facility] NRBC 0.0 <1.0 % LAB HEMETOLOGY METHOD 10/25/2024 8:40 AM EDT [facility] NRBC Absolute 0.00 <0.10 K/mcL LAB HEMETOLOGY METHOD 10/25/2024 8:40 AM EDT [facility] Blood Venous blood specimen / Unknown 10/25/2024 5:48 AM EDT 10/25/2024 8:11 AM EDT us Leslee Recinos MD LAB BLOOD ORDERABLES Final Resu lt [facility] [address] [place] [address], * (ABNORMAL) Basic metabolic panel (10/25/2024 5:48 AM EDT) Sodium 135 133 - 145 mmol/L LAB CHEMISTRY METHOD 10/25/2024 8:46 AM [facility] Potassium 4.1 3.5 - 5.5 mmol/L LAB CHEMISTRY METHOD 10/25/2024 8:46 AM [facility] Chloride 98 96 - 110 mmol/L LAB CHEMISTRY METHOD 10/25/2024 8:46 AM [facility] CO2 28 21 - 32 mmol/L LAB CHEMISTRY METHOD 10/25/2024 8:46 AM [facility] Anion Gap 9 3 - 11 LAB CHEMISTRY METHOD 10/25/2024 8:46 AM [facility] Glucose 157(H) 70 - 100 mg/dL LAB CHEMISTRY METHOD 10/25/2024 8:46 AM [facility] BUN 24 5 - 25 mg/dL LAB CHEMISTRY METHOD 10/25/2024 8:46 AM EDT [facility] Creatinine 1.10 0.50 - 1.10 mg/dL LAB CHEMISTRY METHOD 10/25/2024 8:46 AM EDT [facility] eGFR 60 >=60 mL/min/1. 73m2 LAB CHEMISTRY METHOD 10/25/2024 8:46 AM EDT [facility] Comment:Calculation based on the Chronic Kidney Disease Epidemiology Collaboration (CKD-EPI) equation refit without adjustment for race. BUN/Creatinine Ratio 21.8 LAB CHEMISTRY METHOD 10/25/2024 8:46 AM T [facility] Calcium 9.8 8.5 - 10.5 mg/dL LAB CHEMISTRY METHOD 10/25/2024 8:46 AM T [facility] Blood Venous blood specimen / Unknown 10/25/2024 5:48 AM EDT 10/25/2024 8:11 AM EDT us Leslee Recinos MD LAB BLOOD ORDERABLES Final Resu lt [facility] [address] [place] [address], documented in this encounter Visit Diagnoses Diagnosis Encounter for other general examination documented in this encounter Care Teams Tile Machine Operator Relationship Specialty Start Date End Date Leslee Recinos MD [address] [place] [phone] PCP - General Hospitalist Medicine 10/19/24 documented as of this encounter
--- OUTSIDE RECORDS SUMMARY | 2025-03-30 15:30 | XMS_ITS | Encounter Summary ---
Author Organization [employer] Address [address] [place] [address] Care Team Providers Care Netbackup Engineer Name Role Phone Leslee Recinos MD Primary Care Provider Encounter Details Date Type Department Care Team (Late st Contact Info) Description 10/23/2024 Lab Requisition [facility] - Main Lab [address] [place] [address] Leslee Recinos MD [address] [place] [address] Encounter for other general examination Social History [...] LAB CHEMISTRY METHOD 10/23/2024 1:30 PM EDT [facility] Blood Venous blood specimen / Unknown Venipuncture / Unknown 10/23/2024 11:18 AM EDT 10/23/2024 12:58 PM EDT us Leslee Recinos MD LAB BLOOD ORDERABLES Final Resu lt [facility] [address] [place] [address], * (ABNORMAL) Basic metabolic panel (10/23/2024 11:18 AM EDT) Sodium 137 133 - 145 mmol/L LAB CHEMISTRY METHOD 10/23/2024 1:[address] [facility] Potassium 4.5 3.5 - 5.5 mmol/L LAB CHEMISTRY METHOD 10/23/2024 1:[address] [facility] Chloride 101 96 - 110 mmol/L LAB CHEMISTRY METHOD 10/23/2024 1:[address] [facility] CO2 29 21 - 32 mmol/L LAB CHEMISTRY METHOD 10/23/2024 1:[address] [facility] Anion Gap 7 3 - 11 LAB CHEMISTRY METHOD 10/23/2024 1:[address] [facility] Glucose 148(H) 70 - 100 mg/dL LAB CHEMISTRY METHOD 10/23/2024 1:[address] [facility] BUN 27(H) 5 - 25 mg/dL LAB CHEMISTRY METHOD 10/23/2024 1:[address] [facility] Creatinine 1.16(H) 0.50 - 1.10 mg/dL LAB CHEMISTRY METHOD 10/23/2024 1:[address] [facility] eGFR 56(L) >=60 mL/min/1. 73m2 LAB CHEMISTRY METHOD 10/23/2024 1:[address] [facility] Comment:Calculation based on the Chronic Kidney Disease Epidemiology Collaboration (CKD-EPI) equation refit without adjustment for race. BUN/Creatinine Ratio 23.3 LAB CHEMISTRY METHOD 10/23/2024 1:[address] [facility] Calcium 10.0 8.5 - 10.5 mg/dL LAB CHEMISTRY METHOD 10/23/2024 1:30 PM EDT [facility] Blood Venous blood specimen / Unknown Venipuncture / Unknown 10/23/2024 11:18 AM EDT 10/23/2024 12:58 PM EDT us Leslee Recinos MD LAB BLOOD ORDERABLES Final Resu lt [facility] [address] [place] [address], documented in this encounter Visit Diagnoses Diagnosis Encounter for other general examination documented in this encounter Care Teams Netbackup Engineer Relationship Specialty Start Date End Date Leslee Recinos MD [address] [place] [phone] PCP - General Hospitalist Medicine 10/19/24 documented as of this encounter
--- OUTSIDE RECORDS SUMMARY | 2025-03-30 15:30 | XMS_ITS | Encounter Summary ---
Author Organization [employer] Address [address] [place] [address] Care Team Providers Care Presetter Operator Name Role Phone Leslee Recinos MD Primary Care Provider Encounter Details Date Type Department Care Team (Late st Contact Info) Description 10/21/2024 Lab Requisition [facility] - Main Lab [address] [place] [address] Leslee Recinos MD [address] [place] [address] Encounter for other general examination Social History [...] Resu lt [facility] [address] [place] [address], documented in this encounter Visit Diagnoses Diagnosis Encounter for other general examination documented in this encounter Care Teams Presetter Operator Relationship Specialty Start Date End Date Leslee Recinos MD [address] [place] [phone] PCP - General Hospitalist Medicine 10/19/24 documented as of this encounter
--- OUTSIDE RECORDS SUMMARY | 2025-03-30 15:30 | XMS_ITS | Clinical Summary ---
Author Organization [facility] Address [address] [place] [address] Phone Care Team Providers Care Vertical Contour Band Saw Operator Name Role Phone Leslee Recinos MD Primary Care Provider [phone] Social History Tobacco Use Types Packs/Day Years [...] LAB CHEMISTRY METHOD 11/01/2024 12:36 PM EDT [facility] Potassium 4.5 3.5 - 5.5 mmol/L LAB CHEMISTRY METHOD 11/01/2024 12:36 PM [facility] Chloride 105 96 - 110 mmol/L LAB CHEMISTRY METHOD 11/01/2024 12:36 PM [facility] CO2 28 21 - 32 mmol/L LAB CHEMISTRY METHOD 11/01/2024 12:36 PM [facility] Anion Gap 8 3 - 11 LAB CHEMISTRY METHOD 11/01/2024 12:36 PM EDT [facility] Glucose 106(H) 70 - 100 mg/dL LAB CHEMISTRY METHOD 11/01/2024 12:36 PM EDT [facility] BUN 14 5 - 25 mg/dL LAB CHEMISTRY METHOD 11/01/2024 12:36 PM EDT [facility] Creatinine 1.03 0.50 - 1.10 mg/dL LAB CHEMISTRY METHOD 11/01/2024 12:36 PM EDT [facility] eGFR 65 >=60 mL/min/1. 73m2 LAB CHEMISTRY METHOD 11/01/2024 12:36 PM EDT [facility] Comment:Calculation based on the Chronic Kidney Disease Epidemiology Collaboration (CKD-EPI) equation refit without adjustment for race. BUN/Creatinine Ratio 13.6 LAB CHEMISTRY METHOD 11/01/2024 12:36 PM EDT [facility] Calcium 9.5 8.5 - 10.5 mg/dL LAB CHEMISTRY METHOD 11/01/2024 12:36 PM EDT [facility] Blood Venous blood specimen / Unknown Venipuncture / Unknown 11/01/2024 6:03 AM EDT 11/01/2024 9:49 AM EDT us Leslee Recinos MD LAB BLOOD ORDERABLES Final Resu lt [facility] [address] [place] [address], from Last 3 Months or Most Recently Relevant to Health Maintenance Insurance MEDICARE MEDICAID - [place] Care Teams Vertical Contour Band Saw Operator Relationship Specialty Start Date End Date Leslee Recinos MD [address] [place] [phone] PCP - General Hospitalist Medicine 10/19/24
--- OUTSIDE RECORDS SUMMARY | 2025-03-30 15:30 | XMS_ITS | Encounter Summary ---
Author Organization [employer] Address [address] [place] [address] Care Team Providers Care [employer] Operator Name Role Phone Leslee Recinos MD Primary Care Provider Encounter Details Date Type Department Care Team (Late st Contact Info) Description 10/19/2024 Lab Requisition [facility] - Main Lab [address] [place] [address] Leslee Recinos MD [address] [place] [id number] Encounter for other general examination Social History [...] AM EDT) WBC 7.9 4.8 - 10.8 K/[facility] LAB HEMETOLOGY METHOD 10/19/2024 10:31 AM [facility] RBC 5.00(H) 3.80 - 4.80 M/mcL LAB HEMETOLOGY METHOD 10/19/2024 10:31 AM [facility] Hemoglobin 13.7 11.5 - 16.0 g/dL LAB HEMETOLOGY METHOD 10/19/2024 10:31 AM [facility] Hematocrit 41.2 35.0 - 47.0 % LAB HEMETOLOGY METHOD 10/19/2024 10:31 AM [facility] MCV 82.1 79.0 - 98.0 FL LAB HEMETOLOGY METHOD 10/19/2024 10:31 AM [facility] MCH 27.3 27.0 - 32.0 pcg LAB HEMETOLOGY METHOD 10/19/2024 10:31 AM [facility] MCHC 33.3 32.0 - 37.0 g/dL LAB HEMETOLOGY METHOD 10/19/2024 10:31 AM [facility] RDW 13.9 11.0 - 15.0 % LAB HEMETOLOGY METHOD 10/19/2024 10:31 AM [facility] Platelets 261 130 - 400 K/mcL LAB HEMETOLOGY METHOD 10/19/2024 10:31 AM [facility] MPV 10.1 7.0 - 11.0 FL LAB HEMETOLOGY METHOD 10/19/2024 10:31 AM [facility] NRBC 0.0 <1.0 % LAB HEMETOLOGY METHOD 10/19/2024 10:31 AM [facility] NRBC Absolute 0.00 <0.10 K/mcL LAB HEMETOLOGY METHOD 10/19/2024 10:31 AM [facility] Neutrophils Relative 64.6 % LAB HEMETOLOGY METHOD 10/19/2024 10:31 AM [facility] Lymphocytes Relative 26.0 % LAB HEMETOLOGY METHOD 10/19/2024 10:31 AM [facility] Monocytes Relative 7.7 % LAB HEMETOLOGY METHOD 10/19/2024 10:31 AM [facility] Eosinophils Relative 0.9 % LAB HEMETOLOGY METHOD 10/19/2024 10:31 AM [facility] Basophils Relative 0.4 % LAB HEMETOLOGY METHOD 10/19/2024 10:31 AM [facility] Immature Granulocytes Relative 0.4 % LAB HEMETOLOGY METHOD 10/19/2024 10:31 AM [facility] Neutrophils Absolute 5.12 1.50 - 7.00 K/mcL LAB HEMETOLOGY METHOD 10/19/2024 10:31 AM [facility] Lymphocytes Absolute 2.06 1.00 - 5.00 K/mcL LAB HEMETOLOGY METHOD 10/19/2024 10:31 AM [facility] Monocytes Absolute 0.61 0.20 - 1.00 K/mcL LAB HEMETOLOGY METHOD 10/19/2024 10:31 AM [facility] Eosinophils Absolute 0.07 0.00 - 0.50 K/mcL LAB HEMETOLOGY METHOD 10/19/2024 10:31 AM [facility] Basophils Absolute 0.03 0.00 - 0.20 K/mcL LAB HEMETOLOGY METHOD 10/19/2024 10:31 AM [facility] Immature Granulocytes Absolute 0.03 0.00 - 0.03 K/mcL LAB HEMETOLOGY METHOD 10/19/2024 10:31 AM [facility] Blood Venous blood specimen / Unknown Venipuncture / Unknown 10/19/2024 5:40 AM EDT 10/19/2024 9:43 AM EDT us Leslee Recinos MD LAB BLOOD ORDERABLES Final Resu lt [facility] [address] [place] [address], [place] [phone] * Magnesium (10/19/2024 5:40 AM EDT) Pathologist [facility] Magnesium 2.1 1.9 - 2.6 mg/dL LAB CHEMISTRY METHOD 10/19/2024 12:03 PM EDT [facility] Blood Venous blood specimen / Unknown Venipuncture / Unknown 10/19/2024 5:40 AM EDT 10/19/2024 9:43 AM EDT us Leslee Recinos MD LAB BLOOD ORDERABLES Final Resu lt Performing Organization Address City/[facility]/ZIP Co de Phone Number [facility] [address] [place] [address], [place] [phone] * (ABNORMAL) Comprehensive metabolic panel (10/19/2024 5:40 AM EDT) [facility] Sodium 136 133 - 145 mmol/L LAB CHEMISTRY METHOD 10/19/2024 12:03 PM [facility] Potassium 4.1 3.5 - 5.5 mmol/L LAB CHEMISTRY METHOD 10/19/2024 12:03 PM [facility] Chloride 98 96 - 110 mmol/L LAB CHEMISTRY METHOD 10/19/2024 12:03 PM [facility] CO2 27 21 - 32 mmol/L LAB CHEMISTRY METHOD 10/19/2024 12:03 PM [facility] Anion Gap 11 3 - 11 LAB CHEMISTRY METHOD 10/19/2024 12:03 PM [facility] Glucose 170(H) 70 - 100 mg/dL LAB CHEMISTRY METHOD 10/19/2024 12:03 PM [facility] BUN 24 5 - 25 mg/dL LAB CHEMISTRY METHOD 10/19/2024 12:03 PM [facility] Creatinine 1.04 0.50 - 1.10 mg/dL LAB CHEMISTRY METHOD 10/19/2024 12:03 PM [facility] eGFR 64 >=60 mL/min/1. 73m2 LAB CHEMISTRY METHOD 10/19/2024 12:03 PM [facility] Comment:Calculation based on the Chronic Kidney Disease Epidemiology Collaboration (CKD-EPI) equation refit without adjustment for race. BUN/Creatinine Ratio 23.1 LAB CHEMISTRY METHOD 10/19/2024 12:03 PM [facility] Calcium 9.4 8.5 - 10.5 mg/dL LAB CHEMISTRY METHOD 10/19/2024 12:03 PM [facility] AST (SGOT) 19 10 - 42 unit/L LAB CHEMISTRY METHOD 10/19/2024 12:03 PM [facility] ALT (SGPT) 39 10 - 60 unit/L LAB CHEMISTRY METHOD 10/19/2024 12:03 PM [facility] Alkaline Phosphatase 103 42 - 121 unit/L LAB CHEMISTRY METHOD 10/19/2024 12:03 PM [facility] Total Protein 7.2 6.0 - 8.0 g/dL LAB CHEMISTRY METHOD 10/19/2024 12:03 PM [facility] Albumin 3.9 3.2 - 5.0 g/dL LAB CHEMISTRY METHOD 10/19/2024 12:03 PM [facility] Total Bilirubin 0.9 0.0 - 1.4 mg/dL LAB CHEMISTRY METHOD 10/19/2024 12:03 PM [facility] Blood Venous blood specimen / Unknown Venipuncture / Unknown 10/19/2024 5:40 AM EDT 10/19/2024 9:43 AM EDT us Leslee Recinos MD LAB BLOOD ORDERABLES Final Resu lt [facility] [address] [place] [address], documented in this encounter Visit Diagnoses Diagnosis Encounter for other general examination documented in this encounter Care Teams [employer] Operator Relationship Specialty Start Date End Date Leslee Recinos MD [address] [place] [phone] PCP - General Hospitalist Medicine 10/19/24 documented as of this encounter
== END 2025-03-30 12:35 | disposition home or self-care (01) ==
LOC: HO.LAB 12:34
PROVIDERS: Internal Medicine Hypertension Specialist; PCP Internal Medicine; Visit Provider Nurse Practitioner Family
DX: I10 Essential (primary) hypertension (principal)
CPT/HCPCS: 36415; 80051; 81001; 82310; 82565; 84520

== ENCOUNTER 2025-04-08 15:14 | Inpatient (IN) | payer MEDICARE, MEDICAID, SELFPAY ==
--- NOTE | ~2025-04-08 | CT_ITS ---
EXAMINATION: CT HEAD WITHOUT CONTRAST CLINICAL INFORMATION: Dizziness COMPARISON: December 05, 2024 TECHNIQUE: Contiguous axial imaging was performed from the skull base to vertex without intravenous administration of contrast. This CT examination was performed using dose optimization techniques as appropriate, variously including the following: *Automated exposure control *Adjustment of mA and/or kV according to patient size (this includes techniques or standardized protocols for targeted exams where dose is matched to indication/reason for exam; i.e. extremities or head) *Use of iterative reconstruction technique DLP: 722 mGY*cm FINDINGS: There is no acute ischemic change. Chronic infarct is noted in the right occipital and right parietal occipital regions with encephalomalacia. Chronic ischemic change in the left thalamus, and left internal capsule show further decrease density when compared to the prior. There is no intracranial hemorrhage. There is no mass-effect or midline shift. Basal cisterns and ventricles are within normal limits for age/cerebral volume. Orbits are symmetrical and unremarkable. Paranasal sinuses and mastoid air cells are pneumatized. There are no bony abnormalities. CT/CT head/brain wo IV con IMPRESSION: No acute intracranial abnormality. Multifocal chronic ischemic changes. Electronically signed by: Abdiaziz Carrillo MD 04/08/2025 04:04 PM EDT
--- NOTE | ~2025-04-08 | MR_ITS ---
CLINICAL HISTORY: R sided weakness, speech difficulty MR of the brain without contrast Comparison: CT/REG/SR - CT ANGIO HEAD NECK - 04/09/25 01:[address] - CT ANGIO HEAD NECK - 04/09/25 01:[address]/SR - CT HEAD WITHOUT IV CONTRAST - 04/08/25 15:39 EDT MR - MR HEAD/BRAIN WO CON - 10/15/24 17:21 EDT Findings: No acute infarction, hemorrhage, mass-effect or herniation. New linear signal abnormality in the right riley radiata on the FLAIR/T2 weighted images measuring 1.6 cm and 1.3 cm ( series 12 and 16 images 17 through 18 ). There is increased signal of the larger lesion on the DWI images without decreased signal on the ADC map, indicating T2 shine through ( series 10 and 11, image 18). There are unchanged foci of susceptibility on the SWI images, such as in the basal ganglia, [id number]-left and in encephalomalacia in the right occipital lobe. No hydrocephalus. Increased signal intensity is seen in the deep and periventricular white matter on the T2/FLAIR sequences, which most likely represents the sequela of chronic small vessel ischemic disease. Unchanged encephalomalacia in the right occipital lobe. Chronic infarction in the left basal ganglia and riley radiata with increased in signal abnormality on the FLAIR/ T2 weighted images since the prior study, expected evolution. Chronic lacunar infarctions in the thalami. No extra-axial fluid collection or mass. There is a fatty falx cerebri. Unremarkable sella. Intact flow voids. Normal orbits. Clear paranasal sinuses and mastoid air cells. Unremarkable osseous structures. Impression: No acute infarction. Signal abnormality in the right riley radiata on the FLAIR/T2 weighted images without restricted diffusion which could be the sequela of chronic infarction, new since 10/15/24. Other etiologies such as a demyelinating process may also be considered. This document has been electronically signed by: Marcella Mccullough MD on 04/09/2025 14:08:20
--- NOTE | ~2025-04-08 | CT_ITS ---
CLINICAL HISTORY: dizziness, intractable headache, previous CVA CT angiography head and neck with contrast. 3D Postprocessing. Comparison: CT/MA/SR - CT ANGIO HEAD NECK STROKE - 10/15/24 12:03 EDT Findings: The aortic arch is widely patent. Calcific plaques are seen in bilateral carotid bifurcations without significant stenosis. Motion artifact is seen in bilateral cervical ICAs. Calcific plaques are seen in bilateral cavernous and right supraclinoid ICAs without significant stenosis. Intracranially, there is mild focal stenosis of one of the M2 segments of the right MCA (axial image 286 of series 6), unchanged. There is severe focal stenosis of the A2 segment of the right ASHLEY (axial image 290 of series 6), unchanged. The left middle cerebral and anterior cerebral arteries are widely patent. Bilateral vertebral arteries are patent. Vertebrobasilar junction is normal with patent basilar artery. There is severe focal stenosis/occlusion of one of the P3 segments of the right [employer] (axial image 329), unchanged. The left posterior cerebral and bilateral superior cerebellar arteries are unremarkable. 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 2 mm left posterior communicating artery infundibulum is present (axial image 381), unchanged. No enhancing neck mass is seen. The thyroid gland and salivary glands are unremarkable. There is no adenopathy. The lung apices are clear. No acute osseous abnormality is identified. IMPRESSION: 1. Severe focal stenosis of the A2 segment of the right ASHLEY, unchanged. 2. Severe focal stenosis/occlusion of one of the P3 segments of the right [employer], unchanged. 3. Mild focal stenosis of one of the M2 segments of the right MCA, unchanged. 4. 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 5. 2 mm left posterior communicating artery infundibulum, unchanged. This document has been electronically signed by: Mandy Villalobos on 04/09/2025 05:47:35
[2025-04-08 15:16] VITALS: BP 268/129; PULSE 68; RESP 18; TEMP 36.5; O2SAT 97; BMI 33.3
--- NOTE | 2025-04-08 15:20 | ED.GENADULT ---
HPI - General Adult General Chief complaint: General Medical Stated complaint: hx of stroke, headache, high bp Time Seen by Provider: 04/08/25 15:37 Source: patient Mode of arrival: ambulatory Limitations: language barrier (Patient's 1st language is Setswana, she speaks some Arabic, [facility] interpreter used) History of Present Illness ED Provider: Dr. Ashwin Almonte HPI narrative: 54-year-old female with a history of TIA, multiple strokes with residual right sided weakness, hypertension, depression, ovarian cyst, who presents emergency department for evaluation of severe headache and elevated blood pressure. Patient states that when she woke up this morning she had a headache involving her whole head. She states that this headache was mild and eventually resolved. She states that around 15:30 hours the headache came back. She states that it came on gradually but then became severe and was greater than 10/10. She states that the headache was associated with dizziness, nausea but no vomiting. She also had associated tongue numbness. Patient states that she did not have any increased weakness in her right side and states that the weakness was unchanged since her last stroke. Patient did take her blood pressure at home and states that it was markedly elevated. Patient states she has had similar headaches in the past often related to high blood pressure and related to stress. Patient states she has had similar headaches in the past. Patient was last admitted here from 10/15/2024 until 10/18/2024 with a diagnosis of acute CVA with symptoms including dizziness and right-sided weakness. MRI demonstrated a small focus of diffuse restriction with the left mike radiata extending in the left basal ganglion and neurology recommended treatment with aspirin, Plavix Lipitor and BP control. Related Data Home Medications ?Medication ?Instructions ?Recorded ?Confirmed doxazosin 4 mg tablet 4 mg PO BEDTIME 05/27/22 10/15/24 hydroxyzine HCl 50 mg tablet 50 mg PO BEDTIME 10/29/22 10/15/24 aspirin 81 mg tablet,delayed 81 mg PO DAILY 12/10/22 04/09/25 release albuterol sulfate 90 mcg/actuation 2 inh inhalation Q6H PRN Shortness 04/16/24 10/15/24 aerosol inhaler (Ventolin HFA) Of Breath Or Wheezing trazodone 150 mg tablet 150 mg PO BID PRN Psychosis 08/13/24 10/15/24 sertraline 100 mg tablet 100 mg PO DAILY 10/15/24 10/15/24 dabigatran etexilate 150 mg capsule mg PO 03/29/25 glipizide 5 mg tablet, extended 5 mg PO DAILY 03/29/25 release 24 hr ibuprofen 600 mg tablet 600 mg PO Q6H PRN 03/29/25 rosuvastatin 40 mg tablet 40 mg PO BEDTIME 03/29/25 carvedilol 25 mg tablet 25 mg PO BID 04/09/25 04/09/25 Previous Rx's ?Medication ?Instructions ?Recorded amlodipine 10 mg tablet 10 mg PO DAILY #30 tabs 08/10/24 spironolactone 25 mg tablet 25 mg PO DAILY #90 tabs 08/12/24 clopidogrel 75 mg tablet 75 mg PO DAILY #30 tabs 10/18/24 bisacodyl 5 mg tablet,delayed 10 mg (2 x 5 mg) PO BEDTIME #180 03/29/25 release (Dulcolax (bisacodyl)) tabs polyethylene glycol 3350 17 238 g PO ONCE #238 grams 03/29/25 gram/dose oral powder (Miralax) lisinopril 40 mg tablet 40 mg PO DAILY 90 days #90 tabs 04/08/25 Allergies Allergy/AdvReac Type Severity Reaction Status Date / Time No Known Allergies (No Known Allergy Verified 04/08/25 15:19 Allergies*) Review of Systems Review of Systems: Yes all other systems are reviewed and are negative [facility] Past Medical History Medical History TIA (transient ischemic attack) CVA (cerebral vascular accident) Hypertension FH: breast cancer in first degree relative Abnormal Pap smear of cervix Ovarian cyst Depression Surgical History H/O prior ablation treatment Hx of tubal ligation History of removal of ovarian cyst Family History Family History Paternal Aunt Breast cancer Sister Breast cancer, Onset Age: 46 Social History Social History Household Members: Children Housing: Apartment Housing Other:: lives with adult child in 3rd floor apt Do you presently have visiting nurse or other home services: No Unable to assess alcohol history related to: Unknown Alcohol intake: never Comment: Pt refuses alarms-ambulating independently Patient Tobacco Use Status: Never used Tobacco e-Cigarette/Vaping Use: Never Used Advance Directives: Yes Advance Directives on File: Yes Advance Directives Date on File: 05/09/21 service: No Current occupational status: disabled Gender identity: Female Physical Exam ED Vital Signs: Vital Signs - 24 hr 04/08/25 15:16 04/08/25 15:40 04/08/25 18:00 Temperature 97.7 F 98.2 F Pulse Rate 68 67 57 Respiratory Rate 18 18 12 Blood Pressure 268/129 H 211/103 H 213/99 H Pulse Oximetry 97 97 99 Oxygen Delivery Method Room Air Room Air Room Air 04/08/25 20:02 04/08/25 21:02 04/09/25 00:29 Temperature 98.0 F Pulse Rate 66 60 65 Respiratory Rate 12 18 Blood Pressure 218/100 H 230/91 H 160/64 H Pulse Oximetry 98 Oxygen Delivery Method Room Air 04/09/25 00:44 Temperature Pulse Rate 68 Respiratory Rate Blood Pressure 155/82 H Pulse Oximetry Oxygen Delivery Method BMI result Body Mass Index 33.3 Vital signs revealed an Sonu of the elevated blood pressure of 268/129. Exam: General: Awake, alert in no distress, answers all questions appropriately Head: Normocephalic, atraumatic EENT: PERRL, sclera and conjunctiva are normal, mouth with no erythema or exudates Neck: Supple, no adenopathy Lung: breath sounds symmetric, no wheezing, no rales and no rhonchi Chest: symmetric movement, nontender Heart: regular rate and rhythm, normal S1, S2 no murmurs or rubs Abdomen: soft, non-tender, nondistended, normal bowel sounds Back: no vertebral tenderness, no CVAT Extremities: no deformities, moves all extremities symmetrically, no edema Neuro: General: ?Awake, alert, oriented, normal speech Cranial nerves: ?Cranial nerves 2 through 12?intact Strength: Right-sided upper and lower extremity weakness compared to let Psych: Pleasant, cooperative Course Course Course Narrative: RME, this is a rapid medical exam performed by [facility] please refer to primary provider for complete H&P- 54-year-old female with a past medical history significant for hypertension, obesity, previous CVA presents for evaluation of weakness and dizziness. She reports that around 11:00 p.m. last night she started to develop dizziness. She reports that she had previous CVAs in December of this year. She has a nonfocal exam in triage but her blood pressure is elevated as high as 262/124. She was brought straight back to room 21. Labs, EKG and a CT scan of the brain were ordered. Medications Administered Generic Name Dose Route Start Last Admin Trade Name Marla PRN Reason Stop Dose Admin Amlodipine Besylate 10 mg 04/09/25 09:00 04/09/25 09:22 Amlodipine Besylate 10 Mg Tablet PO 10 mg DAILY ANIA Administration Protocol Aspirin 81 mg 04/09/25 09:00 04/09/25 09:23 Aspirin Enteric Coated 81 Mg Tablet.Dr PO 81 mg DAILY ANIA Administration Carvedilol 25 mg 04/09/25 09:00 04/09/25 09:22 Carvedilol 25 Mg Tablet PO 25 mg BID ANIA Administration Protocol Insulin Human Lispro 0 unit 04/09/25 01:30 04/09/25 08:07 Insulin Lispro 100 Unit/Ml 3 Ml Vial SUBCUT Not Given QIDACHS [facility] Protocol Lisinopril 20 mg 04/09/25 09:00 04/09/25 09:21 Lisinopril 20 Mg Tablet PO 20 mg DAILY ANIA Administration Protocol Sodium Chloride 3 ml 04/09/25 08:00 04/09/25 09:23 0.9 % Sodium Chloride Flush 3 Ml Syringe IVFLUSH 3 ml QSHIFT ANIA Administration Discontinued Medications Generic Name Dose Route Start Last Admin Trade Name Marla PRN Reason Stop Dose Admin Aspirin 243 mg 04/09/25 03:41 04/09/25 04:41 Aspirin 81 Mg Tab.Chew PO 04/09/25 03:42 243 mg ONCE STA Administration Carvedilol 25 mg 04/08/25 19:28 04/08/25 20:06 Carvedilol 25 Mg Tablet PO 04/08/25 19:29 25 mg ONCE ONE Administration Protocol Clopidogrel Bisulfate 75 mg 04/09/25 03:52 04/09/25 04:41 Clopidogrel Bisulfate 75 Mg Tablet PO 04/09/25 03:53 75 mg ONCE STA Administration Diazepam 5 mg 04/08/25 22:18 04/08/25 22:30 Diazepam 5 Mg Tablet PO 04/08/25 22:19 5 mg ONCE ONE Administration Diphenhydramine HCl 50 mg 04/08/25 15:59 04/08/25 16:23 Diphenhydramine Hcl 50 Mg/Ml Vial IVPUSH 04/08/25 16:00 50 mg ONCE STA Administration Haloperidol Lactate 5 mg 04/08/25 23:08 04/08/25 23:24 Haloperidol Lactate 5 Mg/Ml Vial IM 04/08/25 23:09 5 mg STAT STA Administration Hydromorphone HCl 1 mg 04/08/25 18:54 04/08/25 18:58 Hydromorphone Hcl 1 Mg/Ml Syringe IVPUSH 04/08/25 18:55 1 mg ONCE STA Administration Protocol Hydromorphone HCl 1 mg 04/08/25 21:09 04/08/25 21:21 Hydromorphone Hcl 1 Mg/Ml Syringe IVPUSH 04/08/25 21:10 1 mg ONCE STA Administration Protocol Sodium Chloride 1,000 mls @ 999 mls/hr 04/08/25 16:01 04/08/25 18:20 Ns IV 04/08/25 17:01 Infused .Q1H1M STA Infusion Lactated Ringer's 500 mls @ 999 mls/hr 04/09/25 05:45 04/09/25 06:23 Lr IV 04/09/25 06:00 Not Given .Q31M ANIA Lactated Ringer's 1,000 mls @ 999 mls/hr 04/09/25 06:01 04/09/25 07:12 Lr IV 04/09/25 07:01 Infused .Q1H1M STA Infusion Insulin Glargine 10 unit 04/09/25 01:31 04/09/25 03:34 Insulin Glargine,Hum.Rec.Anlog 100 Unit/Ml 10 Ml Vial SUBCUT 04/09/25 01:32 10 unit ONCE ONE Administration Iohexol 85 ml 04/09/25 02:11 04/09/25 02:11 Iohexol 350 Mg/Ml 100 Ml Infus..Btl IV 04/09/25 02:12 75 ml ONCE ONE Administration Lisinopril 20 mg 04/08/25 19:28 04/08/25 20:06 Lisinopril 20 Mg Tablet PO 04/08/25 19:29 20 mg ONCE ONE Administration Protocol Metoclopramide HCl 10 mg 04/08/25 15:59 04/08/25 16:25 Metoclopramide Hcl 10 Mg/2 Ml Vial IVPUSH 04/08/25 16:00 10 mg ONCE STA Administration Morphine Sulfate 4 mg 04/08/25 15:59 04/08/25 16:25 Morphine Sulfate 4 Mg/Ml Cartridge IVPUSH 04/08/25 16:00 4 mg ONCE STA Administration Protocol Morphine Sulfate 4 mg 04/08/25 18:19 04/08/25 18:28 Morphine Sulfate 4 Mg/Ml Cartridge IVPUSH 04/08/25 18:20 4 mg ONCE STA Administration Protocol Nifedipine 90 mg 04/08/25 22:18 04/08/25 22:30 Nifedipine Er 90 Mg Tab.Er.24 PO 04/08/25 22:19 90 mg ONCE ONE Administration Protocol Ondansetron HCl 4 mg 04/08/25 21:52 04/08/25 21:58 Ondansetron Hcl 4 Mg/2 Ml Vial IVPUSH 04/08/25 21:53 4 mg ONCE ONE Administration Medical Decision Making Medical Decision Making MDM Narrative: 54-year-old female with a history of TIA, multiple strokes with residual right sided weakness, hypertension, depression, ovarian cyst, who presents emergency department for evaluation of severe headache and elevated blood pressure. Patient states that when she woke up this morning she had a headache involving her whole head. She states that this headache was mild and eventually resolved. She states that around 15:30 hours the headache came back. She states that it came on gradually but then became severe and was greater than 10/10. She states that the headache was associated with dizziness, nausea but no vomiting. She also had associated tongue numbness. Patient states that she did not have any increased weakness in her right side and states that the weakness was unchanged since her last stroke. Patient did take her blood pressure at home and states that it was markedly elevated. Patient states she has had similar headaches in the past often related to high blood pressure and related to stress. Patient states she has had similar headaches in the past. Vital signs revealed markedly elevated blood pressure. Neurologic exam revealed residual right-sided weakness which is unchanged from her previous weakness according to the patient. Exam was otherwise unremarkable Differential diagnosis: ?Includes but is not limited to intracranial bleed, stroke, hypertensive crisis, essential hypertension, anemia, electrolyte abnormalities Course: 19:11 My interpretation patient's laboratory evaluation is as follows: Microcytic anemia with an H&H of 11 and 32.8 with an MCV of 77.4. Elevated glucose 369. LFTs were normal. Lipase elevated 299. Urinalysis revealed was positive for glucose, leukocyte esterase. Microscopic revealed 11-20 WBCs, 11-20 squamous cells, 2+ bacteria-this has not a clean catch specimen. CT of the head revealed no acute intracranial abnormality but multiple chronic ischemic changes consistent with a previous strokes. No evidence of intracranial hemorrhage which is reassuring. The patient's presentation is not consistent with hypertensive crisis and I believe that her elevated blood pressure and was caused by her headache. The patient's elevated glucose was treated with normal saline IV x1 L., Reglan 10 mg IV and morphine 4 mg IV. Patient then required a 2nd dose of morphine 4 mg IV with her pain coming down to 10/10. Therefore the patient was given Dilaudid 1 mg IV. 21:17 Patient's headache has significantly improved, she was given another dose of Dilaudid 1 mg IV. Patient was given lisinopril 20 mg orally and carvedilol 25 mg orally. I will increase the patient's lisinopril to 40 mg daily. Patient was advised to check her blood pressures on Mondays, Wednesdays and Fridays for 2 weeks and I did discuss these blood pressures with her PCP. Patient does not want any pain medications prescribed at this time. 00:08 AM 04/09/2025 (Dr. Benita Degorot, D.O.) patient with continued headache, nausea and vomiting. I gave her a dose of nifedipine and Valium p.o. which she promptly vomited. Gave a dose of IM haloperidol which seemed to help her nausea. She is now resting. Blood pressure remains elevated though at 219/93. Given her significant blood pressure elevation, continued headaches and dizziness, we will order a CTA to evaluate for LVO. Plan for admission to hospitalist for further care and evaluation of intractable migraine, rule out posterior circulation CVA. Differential Diagnosis Differential Diagnoses: The differential diagnosis associated with the presentation includes (See above) Admission/Observation Consideration of admission/observation: Escalation of care including admission/observation considered (Yes) Consult Healthcare Provider Management of the patient was discussed with: Hospitalist Lab Data [facility] Lab Attestation statement: I reviewed the patient's lab results. 04/09/25 03:52 04/09/25 03:52 Labs: Lab Results 04/08/25 04/08/25 04/08/25 Range/Units 15:35 15:36 18:17 WBC 7.4 (4.8-10.8) X10*3/uL RBC 4.24 (4.20-5.50) X10*6/uL Hgb 11.5 L (12.0-16.0) g/dl Hct 32.8 L (37.0-47.0) % MCV 77.4 L (80.0-98.0) fL MCH 27.1 (27.0-33.0) pg MCHC 35.1 H (31.0-35.0) g/dl RDW 14.4 (11.0-16.0) % Plt Count 241 (160-400) X10*3/uL MPV 9.1 L (9.4-12.3) fL Immature Gran % (Auto) 0.3 (0.0-0.4) % Neut % (Auto) 70.5 (45-73) % Lymph % (Auto) 21.7 (20-40) % Norman % (Auto) 5.7 (2-11) % Eos % (Auto) 1.4 (0-4) % Baso % (Auto) 0.4 (0-2) % Lymph # (Auto) 1.6 (1.2-4.9) X10*3/uL Norman # (Auto) 0.4 (0.1-1.2) X10*3/uL Eos # (Auto) 0.1 (0.0-0.4) X10*3/uL Baso # (Auto) 0.0 (0.0-0.2) X10*3/uL Abs Immat Gran (auto) 0.02 (0.00-0.03) X10*3/uL Absolute Neuts (auto) 5.2 (2.0-8.3) x10*3/uL Absolute Nucleated RBC 0.000 (0.0-0.012) X10*3/uL Nucleated RBC % (auto) 0.0 (0.0-0.2) /100WBC Sodium 136 (135-145) mmol/L Potassium 4.6 (3.3-5.1) mmol/L Chloride 100 (96-108) mmol/L Carbon Dioxide 26 (22-29) mmol/L Anion Gap 15 (12-20) BUN 19 H (9-16) mg/dL Creatinine 1.08 (0.5-1.4) mg/dL Estim Creat Clear Calc 68.6 Estimated GFR 53 Random Glucose 369 H* (60-115) mg/dL Calcium 9.2 (8.4-10.2) mg/dL Total Bilirubin 0.3 (0.0-1.0) mg/dL AST 30 (5-31) U/L ALT 20 (0-31) U/L Alkaline Phosphatase 108 (39-117) U/L Troponin I High Sens < 2.7 (<3.5-17.0) ng/L Total Protein 7.8 (6.5-8.0) g/dL Albumin 4.5 (3.5-5.0) g/dL Lipase 229 H (8-78) U/L Urine Color Yellow Urine Appearance Clear Urine pH 6.0 (5.0-9.0) Ur Specific Virgil <= 1.005 (1.005-1.025) Urine Protein Negative (Neg-Trace) mg/dL Urine Glucose (UA) 100 H (Negative) mg/dL Urine Ketones Negative (Negative) mg/dL Urine Blood Negative (Negative) Urine Nitrite Negative (Negative) Ur Leukocyte Esterase Small (1+) H (Negative) Urine RBC 0-2 (0-2) /HPF Urine WBC 11-20 H (0-5) /HPF Ur Squamous Epith Cells 11-20 (0-2) /HPF Urine Bacteria 2+ (None Seen) Hyaline Casts 0-2 (0-2) /LPF Independent Interpretation I performed an independent interpretation of an: EKG Interpretation: My independent interpretation patient's 12 EKG done on 04/08/2025 at 63 hours is as follows: Sinus bradycardia with a rate of 57, normal TX, QRS and QTC interval, no ST segment elevation, no ST segment depression, no significant T-wave abnormalities, no PACs, no PVCs. Radiology Impression Discussion of test interpretation with radiology: I have reviewed the radiologist's reading. Radiologist Impression: CT head/brain wo IV con IMPRESSION: No acute intracranial abnormality. Multifocal chronic ischemic changes. Electronically signed by: Abdiaziz Carrillo MD 04/08/2025 04:04 PM EDT Independent Historian Clinical information obtained from an independent historian. History obtained from or confirmed by: Friend External Record Review External record reviewed: Inpatient record Prescription Management I considered prescription management with: Other (Antihypertensive: Lisinopril 40 mg daily) Chronic Conditions Patient?s care impacted by: Diabetes and Hypertension Critical Care Time Critical Care Time Critical Care Time: Yes Total Critical Care Time: 45 Attestation: Critical Care: The patient was critically ill with a high probability of imminent or life threatening deterioration. I spent greater than 30 minutes of discontinuous time evaluating the patient,delivering critical care at the bedside, discussing and evaluating pertinent data with consultants. Critical care time does not include time spent performing separately billable procedures or teaching. Total time spent performing critical care was 45 minutes. Discharge Plan Discharge Clinical Impression: Intractable migraine, Essential (primary) hypertension, Dizziness, Nausea and vomiting, Poorly controlled diabetes mellitus Patient Disposition: Admitted As Inpatient Interventions: Admission Worksheet (ED) Last Done: 04/09/25 10:45
--- NOTE | 2025-04-08 15:21 | ECG_ITS ---
Test Reason : WEAKNESS Blood Pressure : */* mmHG Vent. Rate : 57 BPM Atrial Rate : 57 BPM P-R Int : 176 ms QRS Dur : 78 ms QT Int : 448 ms P-R-T Axes : 38 6 38 degrees QTcB Int : 436 ms Sinus bradycardia Otherwise normal ECG When compared with ECG of 24-Feb-2025 12:51, Nonspecific T wave abnormality, improved in Lateral leads Referred By: Jarocho Melendez Electronically Signed By: JACKY JORGENSEN
[2025-04-08 15:40] VITALS: BP 211/103; PULSE 67; RESP 18; O2SAT 97
--- NOTE | 2025-04-08 15:40 | PC.NURSE ---
Pt to ED 21 from [facility] for reports of stroke like s/s and HTN. Pt is alert and oriented on arrival, [facility]. BP 211/103 with HR 67. notified. IV access obtained 20G in LAC. Labs collected and sent, CT pending..
[2025-04-08 15:42] LABS: MANUAL DIFF FLAG NO
--- OUTSIDE RECORDS SUMMARY | 2025-04-08 15:42 | XMS_ITS | Clinical Summary ---
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
--- OUTSIDE RECORDS SUMMARY | 2025-04-08 15:42 | XMS_ITS | Encounter Summary ---
Author Organization [employer] Address [address] [place] [address] Care Team Providers Care Project Coordinator Rn Name Role Phone Leslee Recinos MD Primary Care Provider Encounter Details Date Type Department Care Team (Late st Contact Info) Description 11/01/2024 Lab Requisition [facility] - Main Lab [address] [place] [address] Leslee Recinos MD [address] [place] [address] Encounter for other general examination Social History [...] AM EDT) WBC 7.7 4.8 - 10.8 K/[facility] LAB HEMETOLOGY METHOD 11/01/2024 12:18 PM EDT [facility] RBC 4.50 3.80 - 4.80 M/[facility] LAB HEMETOLOGY METHOD 11/01/2024 12:18 PM EDT [facility] LAB Hemoglobin 12.3 11.5 - 16.0 g/dL LAB HEMETOLOGY METHOD 11/01/2024 12:18 PM EDT [facility] LAB Hematocrit 38.8 35.0 - 47.0 % LAB HEMETOLOGY METHOD 11/01/2024 12:18 PM EDT [facility] LAB MCV 85.7 79.0 - 98.0 FL LAB HEMETOLOGY METHOD 11/01/2024 12:18 PM EDT [facility] LAB MCH 27.2 27.0 - 32.0 pcg LAB HEMETOLOGY METHOD 11/01/2024 12:18 PM EDT [facility] LAB MCHC 31.7(L) 32.0 - 37.0 g/dL LAB HEMETOLOGY METHOD 11/01/2024 12:18 PM EDT [facility] LAB RDW 13.2 11.0 - 15.0 % LAB HEMETOLOGY METHOD 11/01/2024 12:18 PM EDT [facility] LAB Platelets 301 130 - 400 K/mcL LAB HEMETOLOGY METHOD 11/01/2024 12:18 PM EDT [facility] LAB MPV 10.8 7.0 - 11.0 FL LAB HEMETOLOGY METHOD 11/01/2024 12:18 PM EDT [facility] LAB NRBC 0.0 <1.0 % LAB HEMETOLOGY METHOD 11/01/2024 12:18 PM EDT [facility] LAB NRBC Absolute 0.00 <0.10 K/mcL LAB HEMETOLOGY METHOD 11/01/2024 12:18 PM EDT [facility] LAB Blood Venous blood specimen / Unknown Venipuncture / Unknown 11/01/2024 6:03 AM EDT 11/01/2024 9:49 AM EDT us Leslee Recinos MD LAB BLOOD ORDERABLES Final Resu lt [facility] LAB [address] [place] [address], * (ABNORMAL) Basic metabolic panel (11/01/2024 6:03 AM EDT) Sodium 141 133 - 145 mmol/L LAB CHEMISTRY METHOD 11/01/2024 12:36 PM [facility] Potassium 4.5 3.5 - 5.5 mmol/L LAB CHEMISTRY METHOD 11/01/2024 12:36 PM [facility] Chloride 105 96 - 110 mmol/L LAB CHEMISTRY METHOD 11/01/2024 12:36 PM [facility] CO2 28 21 - 32 mmol/L LAB CHEMISTRY METHOD 11/01/2024 12:36 PM [facility] Anion Gap 8 3 - 11 LAB CHEMISTRY METHOD 11/01/2024 12:36 PM [facility] Glucose 106(H) 70 - 100 mg/dL LAB CHEMISTRY METHOD 11/01/2024 12:36 PM [facility] BUN 14 5 - 25 mg/dL LAB CHEMISTRY METHOD 11/01/2024 12:36 PM [facility] Creatinine 1.03 0.50 - 1.10 mg/dL LAB CHEMISTRY METHOD 11/01/2024 12:36 PM [facility] eGFR 65 >=60 mL/min/1. 73m2 LAB CHEMISTRY METHOD 11/01/2024 12:36 PM [facility] Comment:Calculation based on the Chronic Kidney Disease Epidemiology Collaboration (CKD-EPI) equation refit without adjustment for race. BUN/Creatinine Ratio 13.6 LAB CHEMISTRY METHOD 11/01/2024 12:36 PM [facility] Calcium 9.5 8.5 - 10.5 mg/dL LAB CHEMISTRY METHOD 11/01/2024 12:36 PM [facility] Blood Venous blood specimen / Unknown Venipuncture / Unknown 11/01/2024 6:03 AM EDT 11/01/2024 9:49 AM EDT us Leslee Recinos MD LAB BLOOD ORDERABLES Final Resu lt [facility] ([facility]) [facility] [address] [place] [address], documented in this encounter Visit Diagnoses Diagnosis Encounter for other general examination documented in this encounter Care Teams Project Coordinator Rn Relationship Specialty Start Date End Date Leslee Recinos MD [address] [place] [phone] PCP - General Hospitalist Medicine 10/19/24 documented as of this encounter
--- OUTSIDE RECORDS SUMMARY | 2025-04-08 15:43 | XMS_ITS | Clinical Summary ---
Author Organization [address] [facility] Address [address] [place] [address] Phone Care Team Providers Care Internal Corrosion Specialist Name Role Phone Leslee Recinos MD Primary Care Provider [phone] Social History Tobacco Use Types Packs/Day Years [...] LAB CHEMISTRY METHOD 11/01/2024 12:36 PM EDT [facility] Potassium 4.5 3.5 - 5.5 mmol/L LAB CHEMISTRY METHOD 11/01/2024 12:36 PM [facility] Chloride 105 96 - 110 mmol/L LAB CHEMISTRY METHOD 11/01/2024 12:36 PM [facility] CO2 28 21 - 32 mmol/L LAB CHEMISTRY METHOD 11/01/2024 12:36 PM [facility] Anion Gap 8 3 - 11 LAB CHEMISTRY METHOD 11/01/2024 12:36 PM EDT [facility] Glucose 106(H) 70 - 100 mg/dL LAB CHEMISTRY METHOD 11/01/2024 12:36 PM EDT [facility] BUN 14 5 - 25 mg/dL LAB CHEMISTRY METHOD 11/01/2024 12:36 PM EDT [facility] Creatinine 1.03 0.50 - 1.10 mg/dL LAB CHEMISTRY METHOD 11/01/2024 12:36 PM EDT [facility] eGFR 65 >=60 mL/min/1. 73m2 LAB CHEMISTRY METHOD 11/01/2024 12:36 PM EDT [facility] Comment:Calculation based on the Chronic Kidney Disease Epidemiology Collaboration (CKD-EPI) equation refit without adjustment for race. BUN/Creatinine Ratio 13.6 LAB CHEMISTRY METHOD 11/01/2024 12:36 PM EDT [facility] Calcium 9.5 8.5 - 10.5 mg/dL LAB CHEMISTRY METHOD 11/01/2024 12:36 PM EDT [facility] Blood Venous blood specimen / Unknown Venipuncture / Unknown 11/01/2024 6:03 AM EDT 11/01/2024 9:49 AM EDT us Leslee Recinos MD LAB BLOOD ORDERABLES Final Resu lt [facility] [address] [place] [address], from Last 3 Months or Most Recently Relevant to Health Maintenance Insurance MEDICARE MEDICAID - [place] Care Teams Internal Corrosion Specialist Relationship Specialty Start Date End Date Leslee Recinos MD [address] [place] [phone] PCP - General Hospitalist Medicine 10/19/24
--- OUTSIDE RECORDS SUMMARY | 2025-04-08 15:43 | XMS_ITS | Encounter Summary ---
Author Organization [employer] Address [address] [place] [address] Care Team Providers Care Wet Process Miller Name Role Phone Leslee Recinos MD Primary Care Provider Encounter Details Date Type Department Care Team (Late st Contact Info) Description 10/21/2024 Lab Requisition [facility] - Main Lab [address] [place] [address] Leslee Recinos MD [address] [place] [address] Encounter for other general examination Social History [...] LAB CHEMISTRY METHOD 10/21/2024 10:[address] [facility] Blood Venous blood specimen / Unknown Venipuncture / Unknown 10/21/2024 5:40 AM EDT 10/21/2024 8:40 AM EDT us Leslee Recinos MD LAB BLOOD ORDERABLES Final Resu lt [facility] [address] [place] [address], documented in this encounter Visit Diagnoses Diagnosis Encounter for other general examination documented in this encounter Care Teams Wet Process Miller Relationship Specialty Start Date End Date Leslee Recinos MD [address] [place] [address] PCP - General Hospitalist Medicine 10/19/24 documented as of this encounter
--- OUTSIDE RECORDS SUMMARY | 2025-04-08 15:43 | XMS_ITS | Encounter Summary ---
Author Organization [employer] Address [address] [place] [address] Care Team Providers Care Slot Host Name Role Phone Leslee Recinos MD Primary Care Provider Encounter Details Date Type Department Care Team (Late st Contact Info) Description 10/25/2024 Lab Requisition [facility] - Main Lab [address] [place] [address] Leslee Recinos MD [address] [place] [address] Encounter for other general examination Social History [...] LAB CHEMISTRY METHOD 10/25/2024 8:46 AM EDT [facility] ([facility]) [facility] Blood Venous blood specimen / Unknown 10/25/2024 5:48 AM EDT 10/25/2024 8:11 AM EDT us Leslee Recinos MD LAB BLOOD ORDERABLES Final Resu lt [facility] [address] [place] [address], [place] [phone] * (ABNORMAL) Complete blood count (10/25/2024 5:48 AM EDT) WBC 5.9 4.8 - 10.8 K/mcL LAB HEMETOLOGY METHOD 10/25/2024 8:40 AM EDT [facility] RBC 4.80 3.80 - 4.80 M/mcL LAB HEMETOLOGY METHOD 10/25/2024 8:40 AM EDT [facility] Hemoglobin 12.9 11.5 - 16.0 g/dL LAB HEMETOLOGY METHOD 10/25/2024 8:40 AM EDT [facility] Hematocrit 40.0 35.0 - 47.0 % LAB HEMETOLOGY METHOD 10/25/2024 8:40 AM EDT [facility] MCV 83.7 79.0 - 98.0 FL LAB HEMETOLOGY METHOD 10/25/2024 8:40 AM EDT [facility] MCH 27.0 27.0 - 32.0 pcg LAB HEMETOLOGY METHOD 10/25/2024 8:40 AM EDT [facility] MCHC 32.3 32.0 - 37.0 g/dL LAB HEMETOLOGY METHOD 10/25/2024 8:40 AM EDT [facility] RDW 13.1 11.0 - 15.0 % LAB HEMETOLOGY METHOD 10/25/2024 8:40 AM EDT [facility] Platelets 287 130 - 400 K/mcL LAB HEMETOLOGY METHOD 10/25/2024 8:40 AM EDT [facility] MPV 11.2(H) 7.0 - 11.0 FL LAB HEMETOLOGY METHOD 10/25/2024 8:40 AM EDT [facility] NRBC 0.0 <1.0 % LAB HEMETOLOGY METHOD 10/25/2024 8:40 AM EDT [facility] NRBC Absolute 0.00 <0.10 K/mcL LAB HEMETOLOGY METHOD 10/25/2024 8:40 AM EDT [facility] Blood Venous blood specimen / Unknown 10/25/2024 5:48 AM EDT 10/25/2024 8:11 AM EDT us Leslee Recinos MD LAB BLOOD ORDERABLES Final Resu lt [facility] [address] [place] [address], * (ABNORMAL) Basic metabolic panel (10/25/2024 5:48 AM EDT) Sodium 135 133 - 145 mmol/L LAB CHEMISTRY METHOD 10/25/2024 8:46 AM [facility] Potassium 4.1 3.5 - 5.5 mmol/L LAB CHEMISTRY METHOD 10/25/2024 8:46 AM [facility] Chloride 98 96 - 110 mmol/L LAB CHEMISTRY METHOD 10/25/2024 8:46 AM [facility] CO2 28 21 - 32 mmol/L LAB CHEMISTRY METHOD 10/25/2024 8:46 AM [facility] Anion Gap 9 3 - 11 LAB CHEMISTRY METHOD 10/25/2024 8:46 AM [facility] Glucose 157(H) 70 - 100 mg/dL LAB CHEMISTRY METHOD 10/25/2024 8:46 AM [facility] BUN 24 5 - 25 mg/dL LAB CHEMISTRY METHOD 10/25/2024 8:46 AM EDT [facility] Creatinine 1.10 0.50 - 1.10 mg/dL LAB CHEMISTRY METHOD 10/25/2024 8:46 AM EDT [facility] eGFR 60 >=60 mL/min/1. 73m2 LAB CHEMISTRY METHOD 10/25/2024 8:46 AM EDT [facility] Comment:Calculation based on the Chronic Kidney Disease Epidemiology Collaboration (CKD-EPI) equation refit without adjustment for race. BUN/Creatinine Ratio 21.8 LAB CHEMISTRY METHOD 10/25/2024 8:46 AM T [facility] Calcium 9.8 8.5 - 10.5 mg/dL LAB CHEMISTRY METHOD 10/25/2024 8:46 AM T [facility] Blood Venous blood specimen / Unknown 10/25/2024 5:48 AM EDT 10/25/2024 8:11 AM EDT us Leslee Recinos MD LAB BLOOD ORDERABLES Final Resu lt [facility] [address] [place] [address], documented in this encounter Visit Diagnoses Diagnosis Encounter for other general examination documented in this encounter Care Teams Slot Host Relationship Specialty Start Date End Date Leslee Recinos MD [address] [place] [phone] PCP - General Hospitalist Medicine 10/19/24 documented as of this encounter
--- OUTSIDE RECORDS SUMMARY | 2025-04-08 15:43 | XMS_ITS | Encounter Summary ---
Author Organization [employer] Address [address] [place] [address] Care Team Providers Care Auto Striper Name Role Phone Leslee Recinos MD Primary Care Provider Encounter Details Date Type Department Care Team (Late st Contact Info) Description 10/23/2024 Lab Requisition [facility] - Main Lab [address] [place] [address] Leslee Recinos MD [address] [place] [address] Encounter for other general examination Social History [...] LAB CHEMISTRY METHOD 10/23/2024 1:30 PM EDT [facility] ([facility]) [facility] Blood Venous blood specimen / Unknown Venipuncture / Unknown 10/23/2024 11:18 AM EDT 10/23/2024 12:58 PM EDT us Leslee Recinos MD LAB BLOOD ORDERABLES Final Resu lt [facility] [address] [place] [address], * (ABNORMAL) Basic metabolic panel (10/23/2024 11:18 AM EDT) Sodium 137 133 - 145 mmol/L LAB CHEMISTRY METHOD 10/23/2024 1:30 PM [facility] Potassium 4.5 3.5 - 5.5 mmol/L LAB CHEMISTRY METHOD 10/23/2024 1:30 PM [facility] Chloride 101 96 - 110 mmol/L LAB CHEMISTRY METHOD 10/23/2024 1:30 PM [facility] CO2 29 21 - 32 mmol/L LAB CHEMISTRY METHOD 10/23/2024 1:30 PM [facility] Anion Gap 7 3 - 11 LAB CHEMISTRY METHOD 10/23/2024 1:30 PM [facility] Glucose 148(H) 70 - 100 mg/dL LAB CHEMISTRY METHOD 10/23/2024 1:30 PM [facility] BUN 27(H) 5 - 25 mg/dL LAB CHEMISTRY METHOD 10/23/2024 1:30 PM [facility] Creatinine 1.16(H) 0.50 - 1.10 mg/dL LAB CHEMISTRY METHOD 10/23/2024 1:30 PM [facility] eGFR 56(L) >=60 mL/min/1. 73m2 LAB CHEMISTRY METHOD 10/23/2024 1:30 PM [facility] Comment:Calculation based on the Chronic Kidney Disease Epidemiology Collaboration (CKD-EPI) equation refit without adjustment for race. BUN/Creatinine Ratio 23.3 LAB CHEMISTRY METHOD 10/23/2024 1:30 PM [facility] Calcium 10.0 8.5 - 10.5 mg/dL LAB CHEMISTRY METHOD 10/23/2024 1:30 PM EDT [facility] Blood Venous blood specimen / Unknown Venipuncture / Unknown 10/23/2024 11:18 AM EDT 10/23/2024 12:58 PM EDT us Leslee Recinos MD LAB BLOOD ORDERABLES Final Resu lt [facility] [address] [place] [address], documented in this encounter Visit Diagnoses Diagnosis Encounter for other general examination documented in this encounter Care Teams Auto Striper Relationship Specialty Start Date End Date Leslee Recinos MD [address] [place] [address] PCP - General Hospitalist Medicine 10/19/24 documented as of this encounter
--- OUTSIDE RECORDS SUMMARY | 2025-04-08 15:43 | XMS_ITS | Encounter Summary ---
Author Organization [employer] Address [address] [place] [address] Care Team Providers Care Elevator Examiner Name Role Phone Leslee Recinos MD Primary Care Provider Encounter Details Date Type Department Care Team (Late st Contact Info) Description 10/19/2024 Lab Requisition [facility] - Main Lab [address] [facility] [place] [address] Leslee Recinos MD [address] [place] [address] Encounter for other general examination Social History [...] AM EDT) WBC 7.9 4.8 - 10.8 K/[facility] LAB HEMETOLOGY METHOD 10/19/2024 10:31 AM [facility] [...] Resu lt [facility] [address] [place] [address], [place] [phone] * Magnesium (10/19/2024 5:40 AM EDT) Pathologist [facility] Magnesium 2.1 1.9 - 2.6 mg/dL LAB CHEMISTRY METHOD 10/19/2024 12:03 PM EDT [facility] Blood Venous blood specimen / Unknown Venipuncture / Unknown 10/19/2024 5:40 AM EDT 10/19/2024 9:43 AM EDT us Leslee Recinos MD LAB BLOOD ORDERABLES Final Resu lt Performing Organization Address City/[facility]/ZIP Co de Phone Number [facility] [address] [place] [address], [place] [phone] * (ABNORMAL) Comprehensive metabolic panel (10/19/2024 5:40 AM EDT) [facility] Sodium 136 133 - 145 mmol/L [...] [facility] Comment:Calculation based on the [...] MD LAB BLOOD ORDERABLES Final Resu lt [facility] LAB [address] [place] [address], documented in this encounter Visit Diagnoses Diagnosis Encounter for other general examination documented in this encounter Care Teams Elevator Examiner Relationship Specialty Start Date End Date Leslee Recinos MD [address] [place] [phone] PCP - General Hospitalist Medicine 10/19/24 documented as of this encounter
--- OUTSIDE RECORDS SUMMARY | 2025-04-08 15:43 | XMS_ITS | Clinical Summary ---
Author Organization [facility] Address [address] [place] [address] Phone Care Team Providers Care Litigation Attorney Associate Name Role Phone Ani Bright MD Primary [...] average glucose, using the formula of the [id number] Average Glucose study (ADAG), Diabetes Care, Vol.31,#8, [...] Bright MD LAB BLOOD ORDERABLES [facility] Last 3 Months or Most Recently Relevant to Health Maintenance [place] Care Teams Litigation Attorney Associate Relationship Specialty Start Date End Date Ani Bright MD [address] PCP - General Internal Medicine 02/28/21
[2025-04-08 15:46] LABS: Hematocrit 32.8 % (37.0-47.0); Hemoglobin 11.5 g/dl (12.0-16.0); Imm Gran Abs Auto 0.02 X10*3/uL (0.00-0.03); Imm Gran Pct Auto 0.3 % (0.0-0.4); Lymphocytes Absolute Auto 1.6 X10*3/uL (1.2-4.9); Mean Corpuscular HGB Conc 35.1 g/dl (31.0-35.0); Mean Corpuscular Hemoglobin 27.1 pg (27.0-33.0); Mean Corpuscular Volume 77.4 fL (80.0-98.0); NRBC Abs Auto 0.000 X10*3/uL (0.0-0.012); NRBC Pct Auto 0.0 /100WBC (0.0-0.2); Platelet Count 241 X10*3/uL (160-400); Red Blood Count 4.24 X10*6/uL (4.20-5.50); White Blood Count 7.4 X10*3/uL (4.8-10.8)
[2025-04-08 16:02] LABS: Alanine Aminotransferase 20 U/L (0-31); Albumin Level 4.5 g/dL (3.5-5.0); Alkaline Phosphatase 108 U/L (39-117); Anion Gap 15 (12-20); Aspartate Amino Transferase 30 U/L (5-31); Blood Urea Nitrogen 19 mg/dL (9-16); Calcium 9.2 mg/dL (8.4-10.2); Carbon Dioxide 26 mmol/L (22-29); Chloride 100 mmol/L (96-108); Creatinine Clr Calc Pharmacy 68.6; Estimated Glomerular Filt Rate 53; Lipase 229 U/L (8-78); Potassium 4.6 mmol/L (3.3-5.1); Sodium 136 mmol/L (135-145); Total Protein 7.8 g/dL (6.5-8.0)
[2025-04-08 16:05] LABS: Troponin-I High Sensitivity < 2.7 ng/L (<3.5-17.0)
[2025-04-08 18:00] VITALS: BP 213/99; PULSE 57; RESP 12; TEMP 36.8; O2SAT 99
--- NOTE | 2025-04-08 18:26 | PC.NURSE ---
notified pt is still hypertensive and reporting h/a. New orders in place, pt medicated per MAR
[2025-04-08 18:30] LABS: Appearance Urine Clear; Glucose Urine UA 100 mg/dL (Negative); PH 6.0 (5.0-9.0); Specific Gravity - Urine <= 1.005 (1.005-1.025); UMIC TRIGGER UACC YES
[2025-04-08 18:34] LABS: UACC Culture Trigger YES
[2025-04-08 20:02] VITALS: BP 218/100; PULSE 66; RESP 12; TEMP 36.7; O2SAT 98
--- NOTE | 2025-04-08 20:14 | PC.NURSE ---
pt medicated per SEP. MD aware of BP and HR
[2025-04-08 21:02] VITALS: BP 230/91; PULSE 60; RESP 18
--- NOTE | 2025-04-08 23:35 | PC.NURSE ---
Addendum entered by Mirian Nettles 04/08/25 23:36: BP still >200/100 Original Note: pt had an episode of vomiting, headache remains 8/10 despite multiple pain medications, pt reporting dizziness. all similar sx to previous stroke. head CTA ordered by provider. no d/c at this time
[2025-04-09] VITALS (9 sets, daily range): BP systolic 95–184; BP diastolic 51–82; PULSE 65–86; RESP 14–20; TEMP -17.7–36.6; O2SAT 93–96
[2025-04-09] MEDS: iohexoL 350 MG/ML 100 ML INFUS..BTL 85 ML IV (02:11)
[2025-04-09 02:43] LABS: Glucose, Whole Blood 250 mg/dL (60-115)
--- NOTE | 2025-04-09 03:21 | P.HPHOSP_ITS ---
History of Present Illness Date of Service: 04/09/25 Attending physician on admission: Jaret Edge Chief Complaint: Dizziness Michelle Yoon is a 54 years old woman with a past medical history significant for uncontrolled hypertension on multiple antihypertensive meds, CVA with residual right hemiparesis and type 2 diabetes mellitus on glipizide only presents to the emergency department complaining of dizziness, generalized headache, palpitations and speech difficulty. She also reported nausea but no vomiting. She said that today she almost fainted. These symptoms started yesterday around 3 p.m.. She denied loss of consciousness. She said that she was recently in [place] where she was also hospitalized for stroke. She denied worsening weakness to the right upper extremity and mentioned that the right lower extremity is quite weak today. She did not report any acute cardiopulmonary or genitourinary symptoms. In the ED, she was found to have marked hypertension, max 268/129. Most recent BP is 184/77. Other vital signs are normal. CBC showed no leukocytosis. Hemoglobin is 11.7 and platelets 241. There are no significant electrolyte imbalances. BUN is 19 and creatinine 1.08. Her glucose was 389 then 250 after treatment with Lantus and lispro. LFTs are unremarkable. Lipase is 229. Head CT scan showed no acute intracranial abnormality. Head and neck CTA is still pending. ECG showed sinus bradycardia, heart rate 57 beats per minute without ischemic changes. ED Tx: Dilaudid 2 g IV, Haldol 5 mg IV, Reglan 10 mg IV, morphine 4 mg IV, nifedipine 90 mg IV, carvedilol 25 mg IV, diazepam 5 mg IV, Benadryl 50 mg IV, lisinopril 20 mg, Zofran 4 mg Review of Systems 2 Review of Systems: All 12 systems were reviewed and normal except as noted in HPI. [facility] [place] [place] Medical History TIA (transient ischemic attack) CVA (cerebral vascular accident) Hypertension FH: breast cancer in first degree relative Abnormal Pap smear of cervix Ovarian cyst Depression Family History Paternal Aunt Breast cancer Sister Breast cancer, Onset Age: 46 Surgical History H/O prior ablation treatment Hx of tubal ligation History of removal of ovarian cyst Social History Household Members: Children Housing: Apartment Housing Other:: lives with adult child in 3rd floor apt Do you presently have visiting nurse or other home services: No Unable to assess alcohol history related to: Unknown Alcohol intake: never Comment: Pt refuses alarms-ambulating independently Patient Tobacco Use Status: Never used Tobacco e-Cigarette/Vaping Use: Never Used Advance Directives: Yes Advance Directives on File: Yes Advance Directives Date on File: 05/09/21 service: No Current occupational status: disabled Gender identity: Female Meds Allergies Allergy/AdvReac Type Severity Reaction Status Date / Time No Known Allergies (No Known Allergy Verified 04/08/25 15:19 Allergies*) Active Medications: Current Medications Acetaminophen (Acetaminophen 325 Mg Tablet) 975 mg PO Q6H PRN PRN Reason: Pain, Mild 1-3,fever,headache Acetaminophen (Acetaminophen 325 Mg Tablet) 650 mg PO Q6H PRN PRN Reason: Pain, Mild 1-3,fever,headache Amlodipine Besylate (Amlodipine Besylate 10 Mg Tablet) 10 mg PO DAILY [facility]; Protocol Aspirin (Aspirin Enteric Coated 81 Mg Tablet.Dr) 81 mg PO DAILY [facility] Calcium Carbonate (Calcium Carbonate 750 Mg Tab.Chew) 750 mg PO Q4H PRN PRN Reason: Heartburn Carvedilol (Carvedilol 25 Mg Tablet) 25 mg PO BID [facility]; Protocol Dextrose (Dextrose 50 % 25 Gm/50 Ml Syringe) 25 gm IVPUSH Q15M PRN; Protocol PRN Reason: per Hypoglycemia Standing Ord. Glucose (Glucose Gel 15 Gm Gel..Gram.) 15 gm PO Q15M PRN; Protocol PRN Reason: per Hypoglycemia Standing Ord. Insulin Human Lispro (Insulin Lispro 100 Unit/Ml 3 Ml Vial) 0 unit SUBCUT QIDACHS [facility]; Protocol Lisinopril (Lisinopril 20 Mg Tablet) 20 mg PO DAILY [facility]; Protocol Magnesium Hydroxide (Milk Of Magnesia 30 Ml Oral.Susp) 30 ml PO DAILY PRN PRN Reason: Constipation Melatonin (Melatonin 3 Mg Tablet) 6 mg PO BEDTIME PRN PRN Reason: Insomnia Sodium Chloride (0.9 % Sodium Chloride Flush 3 Ml Syringe) 3 ml IVFLUSH QSHIFT [facility] Home Medications ?Medication ?Instructions ?Recorded ?Confirmed ?Last Taken ?Type doxazosin 4 mg tablet 4 mg PO BEDTIME 05/27/2210/14/24 History hydroxyzine HCl 50 mg tablet 50 mg PO BEDTIME 10/29/22 10/15/24 10/14/24 History aspirin 81 mg tablet,delayed 81 mg PO DAILY 12/10/22 0 04/09/25 1 Day Ago History release ~04/08/25 albuterol sulfate 90 mcg/actuation 2 inh inhalation Q6 H PRN Shortness 04/16/24 10/15/24 Unknown History aerosol inhaler (Ventolin HFA) Of Breath Or Wheezing carvedilol 25 mg tablet 25 mg PO BID 04/16/2410/14/24 History trazodone 150 mg tablet 150 mg PO BID PRN Psychosis 08/13/24 10/15/24 Unknown History sertraline 100 mg tablet 100 mg PO DAILY 10/15/2410/14/24 History dabigatran etexilate 150 mg capsule mg PO 03/29/25 Un known History glipizide 5 mg tablet, extended 5 mg PO DAILY 03/29/25 Unknown History release 24 hr ibuprofen 600 mg tablet 600 mg PO Q6H PRN 03/29/25 Unknown History lisinopril 20 mg tablet 20 mg PO DAILY 03/29/25 Unk nown History rosuvastatin 40 mg tablet 40 mg PO BEDTIME 03/29/25 U nknown History carvedilol 25 mg tablet 25 mg PO BID 04/09/25 1 Day Ago History ~04/08/25 lisinopril 20 mg tablet 20 mg PO DAILY 04/09/2503/22 1 Day Ago History ~04/08/25 Physical Exam 2 Vital Signs and Narrative: Vital Signs: Last Vital Signs Temp 98.0 F 04/08/25 20:02 Pulse 68 04/09/25 00:44 Resp 18 04/08/25 21:02 BP 155/82 H 04/09/25 00:44 Pulse Ox 98 04/08/25 20:02 O2 Del Method Room Air 04/08/25 20:02 BMI result Body Mass Index 33.3 Constitutional - Awake and Alert, No apparent distress. Cooperative. Obese. HEENT - PERRLA, EOMI Heart - RRR, no murmurs Respiratory - Normal lung expansion, Normal respiratory effort, No respiratory distress, CTA bilaterally Gastrointestinal - NT / ND; +BS; No rebound or guarding Extremities - no calf tenderness bilaterally, no swelling Musculoskeletal - Normal inspection, normal ROM Skin - Warm/Dry Neurological - Alert & oriented x3. Speech difficulty. Strength: RUE + RLE = 3/5. Sensation intact. Psychological - Appropriate affect Results Labs 04/08/25 15:35 04/08/25 15:36 Labs: Laboratory Results - last 24 hr 04/08/25 04/08/25 04/08/25 15:35 15:36 18:17 MCV 77.4 L MCH 27.1 MCHC 35.1 H RDW 14.4 Plt Count 241 MPV 9.1 L Immature Gran % (Auto) 0.3 Neut % (Auto) 70.5 Lymph % (Auto) 21.7 [place] % (Auto) 5.7 Eos % (Auto) 1.4 Baso % (Auto) 0.4 Lymph # (Auto) 1.6 [place] # (Auto) 0.4 Eos # (Auto) 0.1 Baso # (Auto) 0.0 Abs Immat Gran (auto) 0.02 Absolute Neuts (auto) 5.2 Absolute Nucleated RBC 0.000 Nucleated RBC % (auto) 0.0 Anion Gap 15 Estim Creat Clear Calc 68.6 Estimated GFR 53 POC Glucose Random Glucose 369 H* Calcium 9.2 Total Bilirubin 0.3 AST 30 ALT 20 Alkaline Phosphatase 108 Troponin I High Sens < 2.7 Total Protein 7.8 Albumin 4.5 Lipase 229 H Urine Color Yellow Urine Appearance Clear Urine pH 6.0 Ur Specific [place] <= 1.005 Urine Protein Negative Urine Glucose (UA) 100 H Urine Ketones Negative Urine Blood Negative Urine Nitrite Negative Ur Leukocyte Esterase Small (1+) H Urine RBC 0-2 Urine WBC 11-20 H Ur Squamous Epith Cells 11-20 Urine Bacteria 2+ Hyaline Casts 0-2 04/09/25 02:39 MCV MCH MCHC RDW Plt Count MPV Immature Gran % (Auto) Neut % (Auto) Lymph % (Auto) [place] % (Auto) Eos % (Auto) Baso % (Auto) Lymph # (Auto) [place] # (Auto) Eos # (Auto) Baso # (Auto) Abs Immat Gran (auto) Absolute Neuts (auto) Absolute Nucleated RBC Nucleated RBC % (auto) Anion Gap Estim Creat Clear Calc Estimated GFR POC Glucose 250 H Random Glucose Calcium Total Bilirubin AST ALT Alkaline Phosphatase Troponin I High Sens Total Protein Albumin Lipase Urine Color Urine Appearance Urine pH Ur Specific [place] Urine Protein Urine Glucose (UA) Urine Ketones Urine Blood Urine Nitrite Ur Leukocyte Esterase Urine RBC Urine WBC Ur Squamous Epith Cells Urine Bacteria Hyaline Casts Imaging Radiologist's Impressions: Impressions Head CT 04/08/25 15:39 IMPRESSION: No acute intracranial abnormality. Multifocal chronic ischemic changes. Electronically signed by: Abdiaziz Carrillo MD 04/08/2025 04:04 PM EDT RP Assessment and Plan (1) Hypertensive emergency: Status: Acute (2) Difficulty with speech: Status: Acute (3) Uncontrolled type 2 diabetes mellitus with hyperglycemia: Status: Acute Plan Michelle Yoon is a 54 y/o woman who presents with: Hypertensive emergency --> stroke + TIA symptoms; improving. Head CTA - no bleeding. Head and neck CTA - pending. Telemetry. Neuro checks every 4 hours. Aspirin 243 mg p.o. now then 81 mg p.o. daily. Continue Plavix. Pt filled out prescription for Pradaxa on 02/02/2025 but not sure if she is taking this medication (no hx of a-fib). Continue amlodipine, lisinopril and carvedilol when able (Unclear if taking spironolactone and doxazosin); however, permissive hypertension for now. Continue high-intensity statin. Obtain TTE with bubble study and brain MRI. Recheck troponin and lipid panel. Stroke education. OT, PT and speech therapy evaluation and treatment. Low-salt diet. Neurology consult. Type 2 diabetes mellitus, uncontrolled. BG checks before meals at bedtime. Lantus 10 mg p.o. subacute bedtime. Insulin sliding scale. Continue Diabetic diet. Check hemoglobin A1c (9.9% on September of this year). Hyperlipidemia. Continue statin. Obesity. BMI 33.3 kg/m2. Lifestyle modifications. Depression. Continue sertraline. med rec pending Code status: Full DVT prophylaxis: Compression therapy for now. Lovenox if pt is not taking Pradaxa. Patient will need hospitalization for at least 2 midnights for hypertensive emergency + CVA/TIA symptoms treatment with continuous cardiac monitoring and further evaluation with brain MRI and evaluation by neurology service. This note is constructed using voice recognition software. While every effort has been made to ensure accuracy, garment sorter errors may have been included. Quality Stroke Does the patient have a stroke diagnosis?: Yes Reason for No Anti-thrombotic by Day Two: N/A - Med Ordered VTE Prior VTE?: No VTE Risk Level:: Medical - moderate - high VTE Device Contraindication: N/A - Device Ordered VTE Drug Contraindication: N/A - Med Ordered
[2025-04-09] MEDS: Insulin Glargine,Hum.rec.anlog 100 UNIT/ML 10 ML VIAL 10 UNIT SUBCUT (03:34)
[2025-04-09 03:59] LABS: MANUAL DIFF FLAG NO
[2025-04-09 04:02] LABS: Hematocrit 33.0 % (37.0-47.0); Hemoglobin 11.1 g/dl (12.0-16.0); Imm Gran Abs Auto 0.02 X10*3/uL (0.00-0.03); Imm Gran Pct Auto 0.2 % (0.0-0.4); Lymphocytes Absolute Auto 1.4 X10*3/uL (1.2-4.9); Mean Corpuscular HGB Conc 33.6 g/dl (31.0-35.0); Mean Corpuscular Hemoglobin 26.7 pg (27.0-33.0); Mean Corpuscular Volume 79.3 fL (80.0-98.0); NRBC Abs Auto 0.000 X10*3/uL (0.0-0.012); NRBC Pct Auto 0.0 /100WBC (0.0-0.2); Platelet Count 264 X10*3/uL (160-400); Red Blood Count 4.16 X10*6/uL (4.20-5.50); White Blood Count 10.3 X10*3/uL (4.8-10.8)
[2025-04-09 04:17] LABS: Anion Gap 16 (12-20); Blood Urea Nitrogen 18 mg/dL (9-16); Calcium 9.2 mg/dL (8.4-10.2); Carbon Dioxide 24 mmol/L (22-29); Chloride 102 mmol/L (96-108); Creatinine Clr Calc Pharmacy 74.1; Estimated Glomerular Filt Rate 58; Potassium 4.5 mmol/L (3.3-5.1); Sodium 137 mmol/L (135-145)
[2025-04-09 04:24] LABS: Troponin-I High Sensitivity < 2.7 ng/L (<3.5-17.0)
[2025-04-09 05:32] LABS: Hemoglobin A1C 175.5604 umol/L; Total Hemoglobin (HGBA1C) 2859.8720 umol/L
--- NOTE | 2025-04-09 05:42 | PC.NURSE ---
Addendum entered by Mirian Nettles 04/09/25 05:48: pt presents to ED for stroke sx. hx of stroke 12/2024. R sided hand weakness residual. pt reporting very high BP, severe headache, dizziness, n/v, unbalanced/ RLE weakness, CT negative, CTA ordered, PENDING. pt given multiple medications for headache and BP. BP now stable. headache manageable. uncontrolled T2DM. pt ambulates to the bathroom w/ 1 assist. a/o x4, calm and cooperative with care, Russian speaking primarily. 20g IV R upper arm. neuro, PT/OT/Speech consult. MRI. ADMIT: hypertensive emergency + CVA/TIA sx Original Note: pt presents to ED for stroke sx. hx of stroke 12/2024. R sided hand weakness residual. pt reporting very high BP, severe headache, dizziness, n/v, unbalanced. CT negative, CTA ordered, PENDING. pt given multiple medications for headache and BP. BP now stable. headache manageable. pt ambulates to the bathroom w/ 1 assist. a/o x4, calm and cooperative with care, Russian speaking primarily. 20g IV R upper arm. neuro, PT/OT/Speech consult. MRI.
[2025-04-09] MEDS: Lactated Ringers 1,000 ML 999 ML IV (06:05)
--- NOTE | 2025-04-09 06:06 | PC.NURSE ---
hospitalist made aware of BP 95/51. LR bolus infusing. pt resting comfortably, no complaints at this time, call sarmiento w/in reach
--- NOTE | 2025-04-09 07:28 | P.PNIM_ITS ---
Subjective Subjective Date of Service: 04/09/25 Physical Exam 2 Vital Signs: Vital Signs: Last Vital Signs Temp 97.8 F 04/09/25 03:28 Pulse 67 04/09/25 06:42 Resp 14 04/09/25 06:42 BP 118/55 L 04/09/25 06:42 Pulse Ox 93 04/09/25 06:42 O2 Del Method Room Air 04/09/25 06:42 BMI result Body Mass Index 33.3 Objective Data Active Medications Acetaminophen (Acetaminophen 325 Mg Tablet) 975 mg PO Q6H PRN PRN Reason: Pain, Mild 1-3,fever,headache Acetaminophen (Acetaminophen 325 Mg Tablet) 650 mg PO Q6H PRN PRN Reason: Pain, Mild 1-3,fever,headache Amlodipine Besylate (Amlodipine Besylate 10 Mg Tablet) 10 mg PO DAILY [facility]; Protocol Aspirin (Aspirin Enteric Coated 81 Mg Tablet.Dr) 81 mg PO DAILY [facility] Calcium Carbonate (Calcium Carbonate 750 Mg Tab.Chew) 750 mg PO Q4H PRN PRN Reason: Heartburn Carvedilol (Carvedilol 25 Mg Tablet) 25 mg PO BID [facility]; Protocol Dextrose (Dextrose 50 % 25 Gm/50 Ml Syringe) 25 gm IVPUSH Q15M PRN; Protocol PRN Reason: per Hypoglycemia Standing Ord. Glucose (Glucose Gel 15 Gm Gel..Gram.) 15 gm PO Q15M PRN; Protocol PRN Reason: per Hypoglycemia Standing Ord. Insulin Glargine (Insulin Glargine,Hum.Rec.Anlog 100 Unit/Ml 10 Ml Vial) 10 unit SUBCUT BEDTIME [facility] Insulin Human Lispro (Insulin Lispro 100 Unit/Ml 3 Ml Vial) 0 unit SUBCUT QIDACHS [facility]; Protocol Last Admin: 04/09/25 03:34 Dose: 4 unit Documented By: ARNOLDO Lisinopril (Lisinopril 20 Mg Tablet) 20 mg PO DAILY [facility]; Protocol Magnesium Hydroxide (Milk Of Magnesia 30 Ml Oral.Susp) 30 ml PO DAILY PRN PRN Reason: Constipation Melatonin (Melatonin 3 Mg Tablet) 6 mg PO BEDTIME PRN PRN Reason: Insomnia Sodium Chloride (0.9 % Sodium Chloride Flush 3 Ml Syringe) 3 ml IVFLUSH QSHIFT [facility] Labs 04/09/25 03:52 04/09/25 03:52 Labs: Laboratory Results - last 24 hr 04/08/25 04/08/25 04/08/25 15:35 15:36 18:17 MCV 77.4 L MCH 27.1 MCHC 35.1 H RDW 14.4 Plt Count 241 MPV 9.1 L Immature Gran % (Auto) 0.3 Neut % (Auto) 70.5 Lymph % (Auto) 21.7 [place] % (Auto) 5.7 Eos % (Auto) 1.4 Baso % (Auto) 0.4 Lymph # (Auto) 1.6 [place] # (Auto) 0.4 Eos # (Auto) 0.1 Baso # (Auto) 0.0 Abs Immat Gran (auto) 0.02 Absolute Neuts (auto) 5.2 Absolute Nucleated RBC 0.000 Nucleated RBC % (auto) 0.0 Anion Gap 15 Estim Creat Clear Calc 68.6 Estimated GFR 53 POC Glucose Random Glucose 369 H* Estimat Average Glucose Hemoglobin A1c % Calcium 9.2 Total Bilirubin 0.3 AST 30 ALT 20 Alkaline Phosphatase 108 Troponin I High Sens < 2.7 Total Protein 7.8 Albumin 4.5 Lipase 229 H Urine Color Yellow Urine Appearance Clear Urine pH 6.0 Ur Specific [place] <= 1.005 Urine Protein Negative Urine Glucose (UA) 100 H Urine Ketones Negative Urine Blood Negative Urine Nitrite Negative Ur Leukocyte Esterase Small (1+) H Urine RBC 0-2 Urine WBC 11-20 H Ur Squamous Epith Cells 11-20 Urine Bacteria 2+ Hyaline Casts 0-2 04/09/25 04/09/25 02:39 03:52 MCV 79.3 L MCH 26.7 L MCHC 33.6 RDW 14.4 Plt Count 264 MPV 9.3 L Immature Gran % (Auto) 0.2 Neut % (Auto) 80.1 H Lymph % (Auto) 13.9 L [place] % (Auto) 4.5 Eos % (Auto) 0.9 Baso % (Auto) 0.4 Lymph # (Auto) 1.4 [place] # (Auto) 0.5 Eos # (Auto) 0.1 Baso # (Auto) 0.0 Abs Immat Gran (auto) 0.02 Absolute Neuts (auto) 8.3 Absolute Nucleated RBC 0.000 Nucleated RBC % (auto) 0.0 Anion Gap 16 Estim Creat Clear Calc 74.1 Estimated GFR 58 POC Glucose 250 H Random Glucose 280 H Estimat Average Glucose 177 Hemoglobin A1c % 7.8 H Calcium 9.2 Total Bilirubin AST ALT Alkaline Phosphatase Troponin I High Sens < 2.7 Total Protein Albumin Lipase Urine Color Urine Appearance Urine pH Ur Specific [place] Urine Protein Urine Glucose (UA) Urine Ketones Urine Blood Urine Nitrite Ur Leukocyte Esterase Urine RBC Urine WBC Ur Squamous Epith Cells Urine Bacteria Hyaline Casts Quality Stroke Does the patient have a stroke diagnosis?: Yes Reason for No Anti-thrombotic by Day Two: N/A - Med Ordered VTE Prior VTE?: No VTE Risk Level:: Medical - moderate - high VTE Device Contraindication: N/A - Device Ordered VTE Drug Contraindication: N/A - Med Ordered
[2025-04-09 08:06] LABS: Glucose, Whole Blood 141 mg/dL (60-115)
[2025-04-09] MEDS: 0.9 % Sodium Chloride Flush 3 ML SYRINGE IVFLUSH (09:23)
[2025-04-09] MEDS: Aspirin Enteric Coated 81 MG TABLET.DR PO (09:23)
--- NOTE | 2025-04-09 09:30 | PC.NURSE ---
MRI screening form completed with Pt. Form faxed to MRI. Original form placed in hard chart.
--- NOTE | 2025-04-09 10:36 | HO.NURTONUR ---
54 yr old female admitted for hypertensive emergency acute speech difficulty, and uncontrolled DM. Pt comes to ED with c/o severe nausea, ABRAHAM, dizzy, and difficulty with speech. Pt found to be severely hypertensive. CT imaging negative. Admitted for further management and neuro consult. MRI ordered--screening form completed and faxed to MRI. A&Ox3 VSS 20g to LUE Pt ambulates with 1 assist d/t feeling unsteady. Pt has been resting comfortably this AM, no complaints offered.
--- NOTE | 2025-04-09 11:11 | PM.DS ---
DS: Providers Provider Date of Service: 04/09/25 Date of admission: 04/09/25 01:29 Date of discharge: 04/09/25 Primary care physician: Ani Bright MD Consults: 04/09/25 03:17 Consult to Neurology Routine Consulting Provider: Doreen Upton Reason for consultation: Left-sided weakness, speech difficulty Has provider been notified: No DS: Diagnosis Discharge Diagnosis (1) Hypertensive emergency: Status: Acute (2) Difficulty with speech: Status: Acute (3) Uncontrolled type 2 diabetes mellitus with hyperglycemia: Status: Acute DS: Summary Hospital Course Hospital Course: Hypertensive emergency (SBP 268) with organ dysfunction-dizziness brief aphasia likely secondary to medication adjustments and dietary indiscretions Stroke, seizure, infectious etiology ruled out Prior stroke 54 years old woman with a past medical history significant for uncontrolled hypertension on multiple antihypertensive meds, CVA with residual right hemiparesis and type 2 diabetes mellitus on glipizide only presents to the emergency department complaining of dizziness, generalized headache, palpitations and speech difficulty was noted to have hypertensive emergency with SBP in the 268, repeat SBP 184. Given hypertensive emergency with multi organ dysfunction-vision abnormalities, AMS, prior history of stroke in [place], stroke and seizure workup-were unremarkable. She was given multiple doses of IV medications - Dilaudid 2 g IV, Haldol 5 mg IV, Reglan 10 mg IV, morphine 4 mg IV, nifedipine 90 mg IV, carvedilol 25 mg IV, diazepam 5 mg IV, Benadryl 50 mg IV, lisinopril 20 mg, Zofran 4 mg with quick response. However after a 3 hours hours , she was noted to have normotension , briefly requiring a bolus of Ringer lactate. Since then 4 over 6 hours, in the ED patient remained normotensive without any further fluctuations in blood pressure. Her lisinopril has been increased to 40 mg from 20 mg home dose. No other changes in meds have been made . Stroke, seizure, low-salt diet and compliance with meds reinforced during this visit. PTOT consulted, no requirements during this hospitalization. She has been advised to follow up with the PCP or return to the ED if she notices any symptoms. Type 2 diabetes mellitus, suboptimally controlled-to 80s. A1c 04/09/2025 7.8. Patient educated about blood sugar control. Hyperlipidemia. Continue statin. Obesity. BMI 33.3 kg/m2. Lifestyle modifications. Depression. Continue sertraline. Code status: Full This note is constructed using voice recognition software. While every effort has been made to ensure accuracy, salon designer errors may have been included. Time spent discussing smoking cessation with patient: more than 10 minutes Status at Discharge Functional status at discharge: independent ambulation Overall status at discharge: patient is back to baseline Time Attestation Total time managing care of this patient today: 35 mintues. Discharge Coordination Time (in mins): 35 Quality: Safe Use of Opioids Does Pt have an Active Cancer Diagnosis on the Problem List?: No Quality: Stroke Does the patient have a stroke diagnosis?: No Physical Exam Vital Signs: Vital Signs: Last Vital Signs Temp 97.8 F 04/09/25 03:28 Pulse 76 04/09/25 09:22 Resp 14 04/09/25 06:42 BP 126/63 04/09/25 09:22 Pulse Ox 93 04/09/25 08:19 O2 Del Method Room Air 04/09/25 06:42 BMI result Body Mass Index 33.3 DS: Data Data Completed and Pending Labs on day of discharge: Laboratory Results - last 24 hr 04/08/25 04/08/25 04/08/25 15:35 15:36 18:17 WBC 7.4 RBC 4.24 Hgb 11.5 L Hct 32.8 L MCV 77.4 L MCH 27.1 MCHC 35.1 H RDW 14.4 Plt Count 241 MPV 9.1 L Immature Gran % (Auto) 0.3 Neut % (Auto) 70.5 Lymph % (Auto) 21.7 [place] % (Auto) 5.7 Eos % (Auto) 1.4 Baso % (Auto) 0.4 Lymph # (Auto) 1.6 [place] # (Auto) 0.4 Eos # (Auto) 0.1 Baso # (Auto) 0.0 Abs Immat Gran (auto) 0.02 Absolute Neuts (auto) 5.2 Absolute Nucleated RBC 0.000 Nucleated RBC % (auto) 0.0 Sodium 136 Potassium 4.6 Chloride 100 Carbon Dioxide 26 Anion Gap 15 BUN 19 H Creatinine 1.08 Estim Creat Clear Calc 68.6 Estimated GFR 53 POC Glucose Random Glucose 369 H* Estimat Average Glucose Hemoglobin A1c % Calcium 9.2 Total Bilirubin 0.3 AST 30 ALT 20 Alkaline Phosphatase 108 Troponin I High Sens < 2.7 Total Protein 7.8 Albumin 4.5 Lipase 229 H Urine Color Yellow Urine Appearance Clear Urine pH 6.0 Ur Specific [place] <= 1.005 Urine Protein Negative Urine Glucose (UA) 100 H Urine Ketones Negative Urine Blood Negative Urine Nitrite Negative Ur Leukocyte Esterase Small (1+) H Urine RBC 0-2 Urine WBC 11-20 H Ur Squamous Epith Cells 11-20 Urine Bacteria 2+ Hyaline Casts 0-2 04/09/25 04/09/25 04/09/25 02:39 03:52 08:03 WBC 10.3 RBC 4.16 L Hgb 11.1 L Hct 33.0 L MCV 79.3 L MCH 26.7 L MCHC 33.6 RDW 14.4 Plt Count 264 MPV 9.3 L Immature Gran % (Auto) 0.2 Neut % (Auto) 80.1 H Lymph % (Auto) 13.9 L [place] % (Auto) 4.5 Eos % (Auto) 0.9 Baso % (Auto) 0.4 Lymph # (Auto) 1.4 [place] # (Auto) 0.5 Eos # (Auto) 0.1 Baso # (Auto) 0.0 Abs Immat Gran (auto) 0.02 Absolute Neuts (auto) 8.3 Absolute Nucleated RBC 0.000 Nucleated RBC % (auto) 0.0 Sodium 137 Potassium 4.5 Chloride 102 Carbon Dioxide 24 Anion Gap 16 BUN 18 H Creatinine 1.00 Estim Creat Clear Calc 74.1 Estimated GFR 58 POC Glucose 250 H 141 H Random Glucose 280 H Estimat Average Glucose 177 Hemoglobin A1c % 7.8 H Calcium 9.2 Total Bilirubin AST ALT Alkaline Phosphatase Troponin I High Sens < 2.7 Total Protein Albumin Lipase Urine Color Urine Appearance Urine pH Ur Specific [place] Urine Protein Urine Glucose (UA) Urine Ketones Urine Blood Urine Nitrite Ur Leukocyte Esterase Urine RBC Urine WBC Ur Squamous Epith Cells Urine Bacteria Hyaline Casts Discharge Plan Discharge Anticipated Discharge Date/Time: 04/09/25 11:09 Patient Disposition: Home, Self-Care Discharge Diagnosis: HTN 2/2 headache (?stress) Referrals: Ani Bright MD [Primary Care Provider, Internal Medicine] - 1 Week Discharge Medications: New lisinopril 40 mg tablet 40 mg PO DAILY 90 Days Qty: 90 3RF Continued spironolactone 25 mg tablet 25 mg PO DAILY Qty: 90 1RF trazodone 150 mg tablet 150 mg PO BID PRN (Reason: Psychosis) hydroxyzine HCl 50 mg tablet 50 mg PO BEDTIME sertraline 100 mg tablet 100 mg PO DAILY clopidogrel 75 mg Tablet 75 mg PO DAILY Qty: 30 0RF carvedilol 25 mg tablet 25 mg PO BID doxazosin 4 mg tablet 4 mg PO BEDTIME albuterol sulfate [Ventolin HFA] 90 mcg/actuation HFA aerosol inhaler 2 inh inhalation Q6H PRN (Reason: Shortness Of Breath Or Wheezing) aspirin 81 mg tablet,delayed release (DR/EC) 81 mg PO DAILY amlodipine 10 mg tablet 10 mg PO DAILY Qty: 30 0RF glipizide 5 mg tablet extended release 24hr 5 mg PO DAILY ibuprofen 600 mg tablet 600 mg PO Q6H PRN rosuvastatin 40 mg tablet 40 mg PO BEDTIME dabigatran etexilate 150 mg capsule PO bisacodyl [Dulcolax (bisacodyl)] 5 mg tablet,delayed release (DR/EC) 10 mg PO BEDTIME Qty: 180 4RF polyethylene glycol 3350 [Miralax] 17 gram/dose powder 238 g PO ONCE Qty: 238 0RF Rx Instructions: As directed by gastroenterology department at [facility] Discontinued lisinopril 20 mg tablet 20 mg PO DAILY carvedilol 25 mg tablet 25 mg PO BID lisinopril 20 mg tablet 20 mg PO DAILY Discharge Orders: Discharge Order (Routine); Ordered 04/09/25 Ordered By: Mary Matthew Diet: Low salt diet Activity on Discharge: As tolerated Stand Alone Forms: Patient Portal Discharge page Print Language: Uruguayan Activity Restrictions/Additional Instructions: Your blood work was unremarkable. The CT scan of your brain did not reveal any bleeding in the brain or new strokes which is reassuring. You did have a severe headache with elevated blood pressures but I think that the headache pain was causing your blood pressure to be high. I am increasing your lisinopril from 20 mg a day to 40 mg a day. I sent a new prescription to the [facility] pharmacy on [facility] in [place] I want you to check your blood pressures on Mondays, Wednesdays and Friday mornings for the next 2 weeks. Write these blood pressures down and review them with your primary care doctor to determine if you need any other changes in your blood pressure medications. Continue taking your other medications as prescribed by your providers. Follow-up with your doctor in 2 days. Please return to the emergency department if your symptoms get worse or if you develop any symptoms that are concerning to you. Visit Report Forms: [facility] Instructions Care Plan Goals: SEE ABOVE Health Concerns: SEE ABOVE Plan of Treatment: Lisinopril increased to 40 mg daily Assessment: SEE ABOVE
--- NOTE | 2025-04-09 11:33 | PC.NURSE ---
Pt off unit to MRI
--- NOTE | 2025-04-09 13:12 | PM.NEUROCN ---
History of Present Illness Data of Consult Service Date: 04/09/25 Primary Care Provider: Ani Bright MD [facility] Reason for consult: Right-sided weakness This is a 54 years old woman with a past medical history significant for uncontrolled hypertension on multiple antihypertensive meds, multiple small-vessel strokes between September and December with right-sided weakness, and type 2 diabetes mellitus on glipizide only presents to the emergency department complaining of dizziness, generalized headache, palpitations and speech difficulty and some increase in right-sided weakness which appears to have returned to baseline. Her speech has also returned to baseline. She also reported nausea but no vomiting. She said that today she almost fainted. These symptoms started yesterday around 3 p.m.. She denied loss of consciousness. She said that she was recently in [place] where she was also hospitalized for stroke. In the ED, she was found to have marked hypertension, max 268/129. Her MRI was reviewed and shows multiple old strokes but no acute findings. There is a right parieto-occipital infarct and multiple deep white matter old infarcts in basal ganglia infarcts and lacunar on the left side. Her CTA shows multiple stenotic lesions in both the right ASHLEY, SOFT SHOE DANCER and MCA but no significant stenosis of the left MCA. [facility] Past Medical History Medical History TIA (transient ischemic attack) CVA (cerebral vascular accident) Hypertension FH: breast cancer in first degree relative Abnormal Pap smear of cervix Ovarian cyst Depression Family History Family History Paternal Aunt Breast cancer Sister Breast cancer, Onset Age: 46 Surgical History Surgical History H/O prior ablation treatment Hx of tubal ligation History of removal of ovarian cyst Social History Social History Household Members: Children Housing: Apartment Housing Other:: lives with adult child in 3rd floor apt Do you presently have visiting nurse or other home services: No Unable to assess alcohol history related to: Unknown Alcohol intake: never Comment: Pt refuses alarms-ambulating independently Patient Tobacco Use Status: Never used Tobacco e-Cigarette/Vaping Use: Never Used Advance Directives: Yes Advance Directives on File: Yes Advance Directives Date on File: 05/09/21 service: No Current occupational status: disabled Gender identity: Female Meds Allergies Allergy/AdvReac Type Severity Reaction Status Date / Time No Known Allergies (No Known Allergy Verified 04/08/25 15:19 Allergies*) Active Medications: Current Medications Acetaminophen (Acetaminophen 325 Mg Tablet) 975 mg PO Q6H PRN PRN Reason: Pain, Mild 1-3,fever,headache Acetaminophen (Acetaminophen 325 Mg Tablet) 650 mg PO Q6H PRN PRN Reason: Pain, Mild 1-3,fever,headache Amlodipine Besylate (Amlodipine Besylate 10 Mg Tablet) 10 mg PO DAILY [facility]; Protocol Last Admin: 04/09/25 09:22 Dose: 10 mg Aspirin (Aspirin Enteric Coated 81 Mg Tablet.Dr) 81 mg PO DAILY [facility] Last Admin: 04/09/25 09:23 Dose: 81 mg Calcium Carbonate (Calcium Carbonate 750 Mg Tab.Chew) 750 mg PO Q4H PRN PRN Reason: Heartburn Carvedilol (Carvedilol 25 Mg Tablet) 25 mg PO BID [facility]; Protocol Last Admin: 04/09/25 09:22 Dose: 25 mg Dextrose (Dextrose 50 % 25 Gm/50 Ml Syringe) 25 gm IVPUSH Q15M PRN; Protocol PRN Reason: per Hypoglycemia Standing Ord. Glucose (Glucose Gel 15 Gm Gel..Gram.) 15 gm PO Q15M PRN; Protocol PRN Reason: per Hypoglycemia Standing Ord. Insulin Glargine (Insulin Glargine,Hum.Rec.Anlog 100 Unit/Ml 10 Ml Vial) 10 unit SUBCUT BEDTIME [facility] Insulin Human Lispro (Insulin Lispro 100 Unit/Ml 3 Ml Vial) 0 unit SUBCUT QIDACHS [facility]; Protocol Last Admin: 04/09/25 08:07 Dose: Not Given Lisinopril (Lisinopril 20 Mg Tablet) 20 mg PO DAILY [facility]; Protocol Last Admin: 04/09/25 09:21 Dose: 20 mg Magnesium Hydroxide (Milk Of Magnesia 30 Ml Oral.Susp) 30 ml PO DAILY PRN PRN Reason: Constipation Melatonin (Melatonin 3 Mg Tablet) 6 mg PO BEDTIME PRN PRN Reason: Insomnia Sodium Chloride (0.9 % Sodium Chloride Flush 3 Ml Syringe) 3 ml IVFLUSH QSHIFT [facility] Last Admin: 04/09/25 09:23 Dose: 3 ml Home Medications ?Medication ?Instructions ?Recorded ?Confirmed ?Last Taken ?Type doxazosin 4 mg tablet 4 mg PO BEDTIME 05/27/22 10/15/24 10/14/24 History hydroxyzine HCl 50 mg tablet 50 mg PO BEDTIME 10/29/22 10/15/24 10/14/24 History aspirin 81 mg tablet,delayed 81 mg PO DAILY 12/10/22 04/09/25 1 Day Ago History release ~04/08/25 albuterol sulfate 90 mcg/actuation 2 inh inhalation Q6H PRN Shortness 04/16/24 10/15/24 Unknown History aerosol inhaler (Ventolin HFA) Of Breath Or Wheezing trazodone 150 mg tablet 150 mg PO BID PRN Psychosis 08/13/24 10/15/24 Unknown History sertraline 100 mg tablet 100 mg PO DAILY 10/15/24 10/15/24 10/14/24 History dabigatran etexilate 150 mg capsule mg PO 03/29/25 Unknown History glipizide 5 mg tablet, extended 5 mg PO DAILY 03/29/25 Unknown History release 24 hr ibuprofen 600 mg tablet 600 mg PO Q6H PRN 03/29/25 Unknown History rosuvastatin 40 mg tablet 40 mg PO BEDTIME 03/29/25 Unknown History carvedilol 25 mg tablet 25 mg PO BID 04/09/25 04/09/25 1 Day Ago History ~04/08/25 Physical Exam Vital Signs: Vital Signs: Last Vital Signs Temp 97.8 F 04/09/25 03:28 Pulse 76 04/09/25 09:22 Resp 14 04/09/25 06:42 BP 126/63 04/09/25 09:22 Pulse Ox 93 04/09/25 08:19 O2 Del Method Room Air 04/09/25 06:42 BMI result Body Mass Index 33.3 Neuro: Other: She is alert and oriented with normal intellectual functions. There is no dysphagia or dysarthria. No facial droop. Visual galvez are full to confrontation. She has right upper extremity drift and weakness graded at 4+/5 with some increased tone. Right lower extremities 5-/5 which appears to be her baseline. Left side strength is normal. There are no sensory deficits. Results Labs 04/09/25 03:52 04/09/25 03:52 Labs: Short CBC 04/08/25 04/09/25 Range/Units 15:35 03:52 WBC 7.4 10.3 (4.8-10.8) X10*3/uL Hgb 11.5 L 11.1 L (12.0-16.0) g/dl Hct 32.8 L 33.0 L (37.0-47.0) % Plt Count 241 264 (160-400) X10*3/uL BMP 04/08/25 04/09/25 15:36 03:52 Sodium 136 137 Potassium 4.6 4.5 Chloride 100 102 Carbon Dioxide 26 24 BUN 19 H 18 H Creatinine 1.08 1.00 Calcium 9.2 9.2 Liver Function 04/08/25 Range/Units 15:36 Total Bilirubin 0.3 (0.0-1.0) mg/dL AST 30 (5-31) U/L ALT 20 (0-31) U/L Alkaline Phosphatase 108 (39-117) U/L Albumin 4.5 (3.5-5.0) g/dL Urine 04/08/25 Range/Units 18:17 Urine Color Yellow Urine Appearance Clear Urine pH 6.0 (5.0-9.0) Ur Specific [place] <= 1.005 (1.005-1.025) Urine Protein Negative (Neg-Trace) mg/dL Urine Glucose (UA) 100 H (Negative) mg/dL Microbiology Microbiology Results: Microbiology 04/08/25 18:45 Urine clean catch - Clean Catch Midstream Urine Culture - Preliminary Culture too young to evaluate. Assessment and Plan (1) Hypertensive emergency: Status: Acute Recommend strict Control of blood pressure and diabetes. (2) CVA (cerebral vascular accident): Status: Acute She is back to her baseline so I do not believe that she has had another stroke. She has had multiple small-vessel strokes in the past including 1 in the right parieto-occipital area all of which appeared to be old. I reviewed her MRI and did not find any evidence of an acute diffusion abnormalities to suggest a new stroke. Recommendation continue antiplatelet therapy and strict control of blood pressure and diabetes. Continue atorvastatin. Procedures Date of Service Date of Service: 04/09/25
--- NOTE | 2025-04-09 13:17 | PC.NURSE ---
Pt returns from MRI
[2025-04-09 13:24] LABS: Glucose, Whole Blood 160 mg/dL (60-115)
[2025-04-09 14:12] LABS: Thyroid Stimulating Hormone 1.24 uIU/mL (0.32-4.0)
--- NOTE | 2025-04-09 16:01 | PC.NURSE ---
this RN as charge nurse clarified with attending about pt DC at this time they are in agreement with DC, and outpt follow up. Primary nurse aware
[2025-04-15 05:33] LABS: Metanephrine, Free 41 pg/mL (<=57); Normetanephrines, Free 120 pg/mL (<=148); Total Metanephrine, Free 161 pg/mL (<=205)
== END 2025-04-09 16:35 | disposition home or self-care (01) | DRG 305 ==
LOC: HO.ED 04-09 00:55 → HO.EDOVER 04-09 02:15
PROVIDERS: Physician Assistant; Admitting Provider Internal Medicine; Emergency Provider Emergency Medicine; PCP Internal Medicine; Visit Provider Student in an Organized Health Care Education/Training Program
DX: I16.1 Hypertensive emergency (principal); I69.351 Hemiplegia and hemiparesis following cerebral infarction affecting right dominant side; R47.01 Aphasia; E78.5 Hyperlipidemia, unspecified; F32.A Depression, unspecified; E11.65 Type 2 diabetes mellitus with hyperglycemia; E66.9 Obesity, unspecified; I10 Essential (primary) hypertension; Z71.3 Dietary counseling and surveillance; Z68.33 Body mass index [BMI] 33.0-33.9, adult; Z79.82 Long term (current) use of aspirin; Z79.02 Long term (current) use of antithrombotics/antiplatelets; Z79.84 Long term (current) use of oral hypoglycemic drugs; Z79.899 Other long term (current) drug therapy
CPT/HCPCS: 36415; 70450; 70496; 70498; 70551; 80048; 80053; 81001; 82947; 83036; 83690; 83835; 84443; 84484; 85025; 87086; 93005; 97161; 99285; J1171; J1200; J1630; J2270; J2405; J2765; J7120; Q9967

== ENCOUNTER → 2025-04-08 15:21 | Outpatient (BNV) | payer MEDICARE, MEDICAID, SELFPAY | PROVIDERS: Admitting Provider Internal Medicine; Emergency Provider Emergency Medicine; PCP Internal Medicine; Visit Provider Internal Medicine | DX: R00.1 Bradycardia, unspecified (principal) | CPT/HCPCS: 93010 ==

== ENCOUNTER → 2025-04-08 15:22 | Outpatient (BNV) | payer MEDICARE, MEDICAID, SELFPAY | PROVIDERS: Emergency Provider Emergency Medicine Emergency Medical Services; PCP Internal Medicine; Visit Provider Radiology Diagnostic Radiology | DX: I67.82 Cerebral ischemia (principal) | CPT/HCPCS: 70450 ==

== ENCOUNTER 2025-04-09 01:29 | Outpatient (BNV) | payer MEDICARE, MEDICAID, SELFPAY | END 2025-04-09 01:59 | PROVIDERS: Admitting Provider Internal Medicine; Emergency Provider Emergency Medicine; PCP Internal Medicine; Visit Provider Radiology Vascular & Interventional Radiology | DX: I66.11 Occlusion and stenosis of right anterior cerebral artery (principal); I66.21 Occlusion and stenosis of right posterior cerebral artery; I66.01 Occlusion and stenosis of right middle cerebral artery; I67.1 Cerebral aneurysm, nonruptured; R90.89 Other abnormal findings on diagnostic imaging of central nervous system | CPT/HCPCS: 70496; 70498 ==

== ENCOUNTER → 2025-04-09 01:29 | Outpatient (BNV) | payer MEDICARE, MEDICAID, SELFPAY | PROVIDERS: Admitting Provider Internal Medicine; Emergency Provider Emergency Medicine; PCP Internal Medicine; Visit Provider Internal Medicine | DX: I16.1 Hypertensive emergency (principal); R47.9 Unspecified speech disturbances; E11.65 Type 2 diabetes mellitus with hyperglycemia | CPT/HCPCS: 99235; 99499 ==

== ENCOUNTER → 2025-04-09 01:29 | Outpatient (BNV) | payer MEDICARE, MEDICAID, SELFPAY | PROVIDERS: Admitting Provider Internal Medicine; Emergency Provider Emergency Medicine; PCP Internal Medicine; Visit Provider Psychiatry & Neurology Neurology | DX: I16.1 Hypertensive emergency (principal); I63.9 Cerebral infarction, unspecified | CPT/HCPCS: 99223 ==

== ENCOUNTER → 2025-04-13 15:15 | Outpatient (BNV) | payer MEDICARE, MEDICAID, SELFPAY | PROVIDERS: Visit Provider Radiology Body Imaging | DX: Z12.31 Encounter for screening mammogram for malignant neoplasm of breast (principal) | CPT/HCPCS: 77063; 77067 ==

== ENCOUNTER 2025-04-13 15:20 | Outpatient (REF) | payer MEDICARE, MEDICAID, SELFPAY ==
--- NOTE | ~2025-04-13 | MM_ITS ---
EXAMINATION: MM SCREENING DIGITAL BREAST TOMOSYNTHESIS, BILATERAL CLINICAL INFORMATION: Screening. Asymptomatic. COMPARISON: Comparison made to multiple prior, most recent April 01, 2022, and most remote September 27, 2016. TECHNIQUE: Digital breast tomosynthesis is performed in mediolateral oblique and craniocaudal views along with computer-aided detection (CAD). Synthesized 2D images are generated from the tomosynthesis. Best possible images according to technologist's notes. FINDINGS: BREAST COMPOSITION: The breasts are heterogeneously dense, which may obscure small masses. BILATERAL BREASTS: Diffuse round and amorphous calcifications are not significantly changed from 2021. No significant masses, suspicious calcifications or other abnormalities are seen in either breast. MM/MM tomosynthesis screening BI IMPRESSION: BILATERAL BREASTS: Benign, no mammographic evidence of malignancy. Normal interval follow-up is recommended in 12 months. ASSESSMENT: BI-RADS: Category 2: Benign RECOMMENDATION: Routine annual mammography screening. FOLLOW-UP: 1 year F/U This examination should not preclude the clinical evaluation of a suspicious palpable abnormality. This patient's information was entered into a reminder system with a target due date for their next mammogram. Electronically signed by: Odin Vargas MD 04/15/2025 07:14 PM EDT
--- OUTSIDE RECORDS SUMMARY | 2025-04-13 17:47 | XMS_ITS | Clinical Summary ---
Author Organization [facility] Address [address] [place] [address] Phone Care Team Providers Care Lead Relay Tester Name Role Phone Ani Bright MD Primary [...] average glucose, using the formula of the [id number] Average Glucose study (ADAG), Diabetes Care, Vol.31,#8, [...] Bright MD LAB BLOOD ORDERABLES Final Result [facility] from Last 3 Months or Most Recently Relevant to Health Maintenance [place] Care Teams Lead Relay Tester Relationship Specialty Start Date End Date Ani Bright MD [address] PCP - General Internal Medicine 02/28/21
--- OUTSIDE RECORDS SUMMARY | 2025-04-13 17:47 | XMS_ITS | Clinical Summary ---
Author Organization [employer] Address [address] [place] [address] Care Team Providers Care Tube Coater Name Role Phone Unavailable Primary Care Provider [...] patient's age to complete this topic Insurance [facility] STANDARD
--- OUTSIDE RECORDS SUMMARY | 2025-04-13 17:47 | XMS_ITS | Encounter Summary ---
Author Organization [employer] Address [address] [place] [address] Care Team Providers Care Baton Teacher Name Role Phone Leslee Recinos MD Primary Care Provider Encounter Details Date Type Department Care Team (Late st Contact Info) Description 10/25/[address] [facility] - Main Lab [address] [place] [address] Leslee Recinos MD [address] [place] [id number] Encounter for other general examination Social History [...] LAB CHEMISTRY METHOD 10/25/2024 8:46 AM EDT [facility] ([facility]) [facility] Blood Venous blood specimen / Unknown 10/25/2024 5:48 AM EDT 10/25/2024 8:11 AM EDT us Leslee Recinos MD LAB BLOOD ORDERABLES Final Resu lt [facility] [address] [place] [address], [place] [phone] * (ABNORMAL) Complete blood count (10/25/2024 5:48 AM EDT) WBC 5.9 4.8 - 10.8 K/mcL LAB HEMETOLOGY METHOD 10/25/2024 8:40 AM EDT [facility] RBC 4.80 3.80 - 4.80 M/mcL LAB HEMETOLOGY METHOD 10/25/2024 8:40 AM EDT [facility] Hemoglobin 12.9 11.5 - 16.0 g/dL LAB HEMETOLOGY METHOD 10/25/2024 8:40 AM EDT [facility] Hematocrit 40.0 35.0 - 47.0 % LAB HEMETOLOGY METHOD 10/25/2024 8:40 AM EDT [facility] MCV 83.7 79.0 - 98.0 FL LAB HEMETOLOGY METHOD 10/25/2024 8:40 AM EDT [facility] MCH 27.0 27.0 - 32.0 pcg LAB HEMETOLOGY METHOD 10/25/2024 8:40 AM EDT [facility] MCHC 32.3 32.0 - 37.0 g/dL LAB HEMETOLOGY METHOD 10/25/2024 8:40 AM EDT [facility] RDW 13.1 11.0 - 15.0 % LAB HEMETOLOGY METHOD 10/25/2024 8:40 AM EDT [facility] Platelets 287 130 - 400 K/mcL LAB HEMETOLOGY METHOD 10/25/2024 8:40 AM EDT [facility] MPV 11.2(H) 7.0 - 11.0 FL LAB HEMETOLOGY METHOD 10/25/2024 8:40 AM EDT [facility] NRBC 0.0 <1.0 % LAB HEMETOLOGY METHOD 10/25/2024 8:40 AM EDT [facility] NRBC Absolute 0.00 <0.10 K/mcL LAB HEMETOLOGY METHOD 10/25/2024 8:40 AM EDT [facility] Blood Venous blood specimen / Unknown 10/25/2024 5:48 AM EDT 10/25/2024 8:11 AM EDT us Leslee Recinos MD LAB BLOOD ORDERABLES Final Resu lt [facility] [address] [place] [address], * (ABNORMAL) Basic metabolic panel (10/25/2024 5:48 AM EDT) Sodium 135 133 - 145 mmol/L LAB CHEMISTRY METHOD 10/25/2024 8:46 AM [facility] Potassium 4.1 3.5 - 5.5 mmol/L LAB CHEMISTRY METHOD 10/25/2024 8:46 AM [facility] Chloride 98 96 - 110 mmol/L LAB CHEMISTRY METHOD 10/25/2024 8:46 AM [facility] CO2 28 21 - 32 mmol/L LAB CHEMISTRY METHOD 10/25/2024 8:46 AM [facility] Anion Gap 9 3 - 11 LAB CHEMISTRY METHOD 10/25/2024 8:46 AM [facility] Glucose 157(H) 70 - 100 mg/dL LAB CHEMISTRY METHOD 10/25/2024 8:46 AM [facility] BUN 24 5 - 25 mg/dL LAB CHEMISTRY METHOD 10/25/2024 8:46 AM EDT [facility] Creatinine 1.10 0.50 - 1.10 mg/dL LAB CHEMISTRY METHOD 10/25/2024 8:46 AM EDT [facility] eGFR 60 >=60 mL/min/1. 73m2 LAB CHEMISTRY METHOD 10/25/2024 8:46 AM EDT [facility] Comment:Calculation based on the Chronic Kidney Disease Epidemiology Collaboration (CKD-EPI) equation refit without adjustment for race. BUN/Creatinine Ratio 21.8 LAB CHEMISTRY METHOD 10/25/2024 8:46 AM T [facility] Calcium 9.8 8.5 - 10.5 mg/dL LAB CHEMISTRY METHOD 10/25/2024 8:46 AM T [facility] Blood Venous blood specimen / Unknown 10/25/2024 5:48 AM EDT 10/25/2024 8:11 AM EDT us Leslee Recinos MD LAB BLOOD ORDERABLES Final Resu lt [facility] [address] [place] [address], documented in this encounter Visit Diagnoses Diagnosis Encounter for other general examination documented in this encounter Care Teams Baton Teacher Relationship Specialty Start Date End Date Leslee Recinos MD [address] [place] [phone] PCP - General Hospitalist Medicine 10/19/24 documented as of this encounter
--- OUTSIDE RECORDS SUMMARY | 2025-04-13 17:47 | XMS_ITS | Encounter Summary ---
Author Organization [employer] Address [address] [place] [address] Care Team Providers Care Stenotype Machine Operator Name Role Phone Leslee Recinos MD Primary Care Provider Encounter Details Date Type Department Care Team (Late st Contact Info) Description 10/23/2024 Lab Requisition [facility] - Main Lab [address] [place] [address] Leslee Recinos MD [address] [place] [id number] Encounter for other general examination Social History [...] LAB CHEMISTRY METHOD 10/23/2024 1:30 PM EDT [facility]) [facility] Blood Venous blood specimen / Unknown Venipuncture / Unknown 10/23/2024 11:18 AM EDT 10/23/2024 12:58 PM EDT Leslee Recinos MD LAB BLOOD ORDERABLES Final Resu lt [facility] [address] [place] [address], * (ABNORMAL) Basic metabolic panel (10/23/2024 11:18 [...] LAB CHEMISTRY METHOD 10/23/2024 1:30 PM EDT [facility] Blood Venous blood specimen / Unknown Venipuncture / Unknown 10/23/2024 11:18 AM EDT 10/23/2024 12:58 PM EDT us Leslee Recinos MD LAB BLOOD ORDERABLES Final Resu lt [facility] [address] [place] [address], documented in this encounter Visit Diagnoses Diagnosis Encounter for other general examination documented in this encounter Care Teams Stenotype Machine Operator Relationship Specialty Start Date End Date Leslee Recinos MD [address] [place] [id number] PCP - General Hospitalist Medicine 10/19/24 documented as of this encounter
--- OUTSIDE RECORDS SUMMARY | 2025-04-13 17:47 | XMS_ITS | Encounter Summary ---
Author Organization [facility] Address [address] [place] [address] Care Team Providers Care Pharmacist Hospital Name Role Phone Leslee Recinos MD Primary Care Provider Encounter Details Date Type Department Care Team (Late st Contact Info) Description 10/21/2024 Lab Requisition [facility] - Main Lab [address] [place] [address] Leslee Recinos MD [address] [place] [phone] Encounter for other general examination Social History [...] LAB CHEMISTRY METHOD 10/21/2024 10:09 AM EDT [facility] Blood Venous blood specimen / Unknown Venipuncture / Unknown 10/21/2024 5:40 AM EDT 10/21/2024 8:40 AM EDT us Leslee Recinos MD LAB BLOOD ORDERABLES Final Resu lt [facility] [address] [place] [address], documented in this encounter Visit Diagnoses Diagnosis Encounter for other general examination documented in this encounter Care Teams Pharmacist Hospital Relationship Specialty Start Date End Date Leslee Recinos MD [address] [place] [phone] PCP - General Hospitalist Medicine 10/19/24 documented as of this encounter
--- OUTSIDE RECORDS SUMMARY | 2025-04-13 17:47 | XMS_ITS | Encounter Summary ---
Author Organization [facility] Address [address] [place] [address] Care Team Providers Care Child Monitor Name Role Phone Leslee Recinos MD Primary Care Provider Encounter Details Date Type Department Care Team (Late st Contact Info) Description 11/01/[address] [facility] - Main Lab [address] [place] [address] Leslee Recinos MD [address] [place] [phone] Encounter for other general examination Social History [...] AM EDT) WBC 7.7 4.8 - 10.8 K/[facility] LAB HEMETOLOGY METHOD 11/01/2024 12:18 PM EDT [facility] RBC 4.50 3.80 - 4.80 M/[facility] LAB HEMETOLOGY METHOD 11/01/2024 12:18 [...] Final Resu lt [facility] [address] [place] [address], * (ABNORMAL) Basic metabolic panel (11/01/2024 6:03 AM EDT) Sodium 141 133 - 145 mmol/L LAB CHEMISTRY METHOD 11/01/2024 12:36 PM [facility] Potassium 4.5 3.5 - 5.5 mmol/L LAB CHEMISTRY METHOD 11/01/2024 12:36 PM [facility] Chloride 105 96 - 110 mmol/L LAB CHEMISTRY METHOD 11/01/2024 12:36 PM [facility] CO2 28 21 - 32 mmol/L LAB CHEMISTRY METHOD 11/01/2024 12:36 PM [facility] Anion Gap 8 3 - 11 LAB CHEMISTRY METHOD 11/01/2024 12:36 PM [facility] Glucose 106(H) 70 - 100 mg/dL LAB CHEMISTRY METHOD 11/01/2024 12:36 PM [facility] BUN 14 5 - 25 mg/dL LAB CHEMISTRY METHOD 11/01/2024 12:36 PM [facility] Creatinine 1.03 0.50 - 1.10 mg/dL LAB CHEMISTRY METHOD 11/01/2024 12:36 PM [facility] eGFR 65 >=60 mL/min/1. 73m2 LAB CHEMISTRY METHOD 11/01/2024 12:36 PM [facility] Comment:Calculation based on the Chronic Kidney Disease Epidemiology Collaboration (CKD-EPI) equation refit without adjustment for race. BUN/Creatinine Ratio 13.6 LAB CHEMISTRY METHOD 11/01/2024 12:36 PM [facility] Calcium 9.5 8.5 - 10.5 mg/dL LAB CHEMISTRY METHOD 11/01/2024 12:36 PM [facility] Blood Venous blood specimen / Unknown Venipuncture / Unknown 11/01/2024 6:03 AM EDT 11/01/2024 9:49 AM EDT us Leslee Recinos MD LAB BLOOD ORDERABLES Final Resu lt [facility] [address] [place] [address], documented in this encounter Visit Diagnoses Diagnosis Encounter for other general examination documented in this encounter Care Teams Child Monitor Relationship Specialty Start Date End Date Leslee Recinos MD [address] [place] [phone] PCP - General Hospitalist Medicine 10/19/24 documented as of this encounter
--- OUTSIDE RECORDS SUMMARY | 2025-04-13 17:47 | XMS_ITS | Clinical Summary ---
Author Organization [address] [facility] Address [address] [place] [address] Phone Care Team Providers Care Mate Relief Name Role Phone Leslee Recinos MD Primary Care Provider [phone] Social History Tobacco Use Types Packs/Day Years [...] LAB CHEMISTRY METHOD 11/01/2024 12:36 PM EDT [facility] Potassium 4.5 3.5 - 5.5 mmol/L LAB CHEMISTRY METHOD 11/01/2024 12:36 PM [facility] Chloride 105 96 - 110 mmol/L LAB CHEMISTRY METHOD 11/01/2024 12:36 PM [facility] CO2 28 21 - 32 mmol/L LAB CHEMISTRY METHOD 11/01/2024 12:36 PM [facility] Anion Gap 8 3 - 11 LAB CHEMISTRY METHOD 11/01/2024 12:36 PM EDT [facility] Glucose 106(H) 70 - 100 mg/dL LAB CHEMISTRY METHOD 11/01/2024 12:36 PM EDT [facility] BUN 14 5 - 25 mg/dL LAB CHEMISTRY METHOD 11/01/2024 12:36 PM EDT [facility] Creatinine 1.03 0.50 - 1.10 mg/dL LAB CHEMISTRY METHOD 11/01/2024 12:36 PM EDT [facility] eGFR 65 >=60 mL/min/1. 73m2 LAB CHEMISTRY METHOD 11/01/2024 12:36 PM EDT [facility] Comment:Calculation based on the Chronic Kidney Disease Epidemiology Collaboration (CKD-EPI) equation refit without adjustment for race. BUN/Creatinine Ratio 13.6 LAB CHEMISTRY METHOD 11/01/2024 12:36 PM EDT [facility] Calcium 9.5 8.5 - 10.5 mg/dL LAB CHEMISTRY METHOD 11/01/2024 12:36 PM EDT [facility] Blood Venous blood specimen / Unknown Venipuncture / Unknown 11/01/2024 6:03 AM EDT 11/01/2024 9:49 AM EDT us Leslee Recinos MD LAB BLOOD ORDERABLES Final Resu lt [facility] [address] [place] [address], from Last 3 Months or Most Recently Relevant to Health Maintenance Insurance MEDICARE MEDICAID - [place] Care Teams Mate Relief Relationship Specialty Start Date End Date Leslee Recinos MD [address] [place] [phone] PCP - General Hospitalist Medicine 10/19/24
--- OUTSIDE RECORDS SUMMARY | 2025-04-13 17:47 | XMS_ITS | Encounter Summary ---
Author Organization [employer] Address [address] [place] [address] Care Team Providers Care Fourdrinier Machine Operator Name Role Phone Leslee Recinos MD Primary Care Provider Encounter Details Date Type Department Care Team (Late st Contact Info) Description 10/19/2024 Lab Requisition [facility] - Main Lab [address] [facility] [place] [address] Leslee Recinos MD [address] [place] [phone] Encounter for other general examination Social History [...] AM EDT) WBC 7.9 4.8 - 10.8 K/[facility] LAB HEMETOLOGY METHOD 10/19/2024 10:31 AM [facility] RBC 5.00(H) 3.80 - 4.80 M/mcL LAB HEMETOLOGY METHOD 10/19/2024 10:31 AM [facility] Hemoglobin 13.7 11.5 - 16.0 g/dL LAB HEMETOLOGY METHOD 10/19/2024 10:31 AM [facility] Hematocrit 41.2 35.0 - 47.0 % LAB HEMETOLOGY METHOD 10/19/2024 10:31 AM [facility] MCV 82.1 79.0 - 98.0 FL LAB HEMETOLOGY METHOD 10/19/2024 10:31 AM [facility] MCH 27.3 27.0 - 32.0 pcg LAB HEMETOLOGY METHOD 10/19/2024 10:31 AM [facility] MCHC 33.3 32.0 - 37.0 g/dL LAB HEMETOLOGY METHOD 10/19/2024 10:31 AM [facility] RDW 13.9 11.0 - 15.0 % LAB HEMETOLOGY METHOD 10/19/2024 10:31 AM [facility] Platelets 261 130 - 400 K/mcL LAB HEMETOLOGY METHOD 10/19/2024 10:31 AM [facility] MPV 10.1 7.0 - 11.0 FL LAB HEMETOLOGY METHOD 10/19/2024 10:31 AM [facility] NRBC 0.0 <1.0 % LAB HEMETOLOGY METHOD 10/19/2024 10:31 AM [facility] NRBC Absolute 0.00 <0.10 K/mcL LAB HEMETOLOGY METHOD 10/19/2024 10:31 AM [facility] Neutrophils Relative 64.6 % LAB HEMETOLOGY METHOD 10/19/2024 10:31 AM [facility] Lymphocytes Relative 26.0 % LAB HEMETOLOGY METHOD 10/19/2024 10:31 AM [facility] Monocytes Relative 7.7 % LAB HEMETOLOGY METHOD 10/19/2024 10:31 AM [facility] Eosinophils Relative 0.9 % LAB HEMETOLOGY METHOD 10/19/2024 10:31 AM [facility] Basophils Relative 0.4 % LAB HEMETOLOGY METHOD 10/19/2024 10:31 AM [facility] Immature Granulocytes Relative 0.4 % LAB HEMETOLOGY METHOD 10/19/2024 10:31 AM [facility] Neutrophils Absolute 5.12 1.50 - 7.00 K/mcL LAB HEMETOLOGY METHOD 10/19/2024 10:31 AM [facility] Lymphocytes Absolute 2.06 1.00 - 5.00 K/mcL LAB HEMETOLOGY METHOD 10/19/2024 10:31 AM [facility] Monocytes Absolute 0.61 0.20 - 1.00 K/mcL LAB HEMETOLOGY METHOD 10/19/2024 10:31 AM [facility] Eosinophils Absolute 0.07 0.00 - 0.50 K/mcL LAB HEMETOLOGY METHOD 10/19/2024 10:31 AM [facility] Basophils Absolute 0.03 0.00 - 0.20 K/mcL LAB HEMETOLOGY METHOD 10/19/2024 10:31 AM [facility] Immature Granulocytes Absolute 0.03 0.00 - 0.03 K/mcL LAB HEMETOLOGY METHOD 10/19/2024 10:31 AM [facility] Blood Venous blood specimen / Unknown Venipuncture / Unknown 10/19/2024 5:40 AM EDT 10/19/2024 9:43 AM EDT us Leslee Recinos MD LAB BLOOD ORDERABLES Final Resu lt [facility] [address] [place] [address], [place] [phone] * Magnesium (10/19/2024 5:40 AM EDT) Pathologist [facility] Magnesium 2.1 1.9 - 2.6 mg/dL LAB CHEMISTRY METHOD 10/19/2024 12:03 PM EDT [facility] Blood Venous blood specimen / Unknown Venipuncture / Unknown 10/19/2024 5:40 AM EDT 10/19/2024 9:43 AM EDT us Leslee Recinos MD LAB BLOOD ORDERABLES Final Resu lt Performing Organization Address City/[facility]/ZIP Co de Phone Number [facility] [address] [place] [address], [place] [phone] * (ABNORMAL) Comprehensive metabolic panel (10/19/2024 5:40 AM EDT) [facility] Sodium 136 133 - 145 mmol/L LAB CHEMISTRY METHOD 10/19/2024 12:03 PM [facility] Potassium 4.1 3.5 - 5.5 mmol/L LAB CHEMISTRY METHOD 10/19/2024 12:03 PM [facility] Chloride 98 96 - 110 mmol/L LAB CHEMISTRY METHOD 10/19/2024 12:03 PM [facility] CO2 27 21 - 32 mmol/L LAB CHEMISTRY METHOD 10/19/2024 12:03 PM [facility] Anion Gap 11 3 - 11 LAB CHEMISTRY METHOD 10/19/2024 12:03 PM [facility] Glucose 170(H) 70 - 100 mg/dL LAB CHEMISTRY METHOD 10/19/2024 12:03 PM [facility] BUN 24 5 - 25 mg/dL LAB CHEMISTRY METHOD 10/19/2024 12:03 PM [facility] Creatinine 1.04 0.50 - 1.10 mg/dL LAB CHEMISTRY METHOD 10/19/2024 12:03 PM [facility] eGFR 64 >=60 mL/min/1. 73m2 LAB CHEMISTRY METHOD 10/19/2024 12:03 PM [facility] Comment:Calculation based on the Chronic Kidney Disease Epidemiology Collaboration (CKD-EPI) equation refit without adjustment for race. BUN/Creatinine Ratio 23.1 LAB CHEMISTRY METHOD 10/19/2024 12:03 PM [facility] Calcium 9.4 8.5 - 10.5 mg/dL LAB CHEMISTRY METHOD 10/19/2024 12:03 PM [facility] AST (SGOT) 19 10 - 42 unit/L LAB CHEMISTRY METHOD 10/19/2024 12:03 PM [facility] ALT (SGPT) 39 10 - 60 unit/L LAB CHEMISTRY METHOD 10/19/2024 12:03 PM [facility] Alkaline Phosphatase 103 42 - 121 unit/L LAB CHEMISTRY METHOD 10/19/2024 12:03 PM [facility] Total Protein 7.2 6.0 - 8.0 g/dL LAB CHEMISTRY METHOD 10/19/2024 12:03 PM [facility] Albumin 3.9 3.2 - 5.0 g/dL LAB CHEMISTRY METHOD 10/19/2024 12:03 PM [facility] Total Bilirubin 0.9 0.0 - 1.4 mg/dL LAB CHEMISTRY METHOD 10/19/2024 12:03 PM [facility] Blood Venous blood specimen / Unknown Venipuncture / Unknown 10/19/2024 5:40 AM EDT 10/19/2024 9:43 AM EDT us Leslee Recinos MD LAB BLOOD ORDERABLES Final Resu lt [facility] ([facility] HOSP[facility] LAB [address] [place] [address], documented in this encounter Visit Diagnoses Diagnosis Encounter for other general examination documented in this encounter Care Teams Fourdrinier Machine Operator Relationship Specialty Start Date End Date Leslee Recinos MD [address] [place] [phone] PCP - General Hospitalist Medicine 10/19/24 documented as of this encounter
== END 2025-04-13 15:21 | disposition home or self-care (01) ==
LOC: HO.MAMMO 15:20
PROVIDERS: Visit Provider Internal Medicine
DX: Z12.31 Encounter for screening mammogram for malignant neoplasm of breast (principal)
CPT/HCPCS: 77063; 77067

== ENCOUNTER 2025-04-19 14:57 | Outpatient (AMB) | payer MEDICARE, MEDICAID, SELFPAY ==
[2025-04-19 15:10] VITALS: BP 118/82; PULSE 97; O2SAT 97; BMI 32.4
--- NOTE | 2025-04-19 15:10 | A.OFFVIS_ITS ---
Vital Signs 04/19/25 15:10 Height 5 ft 6 in Weight 200 lb 9.93 oz BMI 32.4 BP 118/82 Blood Pressure Location Rt brachial Position Sitting Pulse 97 Pulse Source Pulse Oximeter Pulse Oximetry (%) 97 Oxygen Delivery Method Room Air Intake Visit Reasons: Type 2 diabetes mellitus without complications Intake Note: NEW Patient presents today to establish treatment for Type 2 Diabetes Mellitus: Last Diabetic eye exam was on: Patient stated a week ago Last Podiatry exam was on: Patient does not see a Purchase Request Editor Most recent HbA1c: 7.8%, 04/09/2025 Random Glucose: 276 mg/dL Wrapping Machine Helper Required: Yes Wrapping Machine Helper Language: Smoke Eater Services: Wrapping Machine Helper Offered & Declined (DR Rivera Speak Fluent Luxembourgish) Accompanied by: Self / Same As Patient Allergies No Known Allergies (No Known Allergies*) Allergy (Verified 04/19/25 15:11) Medication List - Last Reconciled 04/19/25 by Yeset Della López MD albuterol sulfate 90 mcg/actuation (Ventolin HFA) 2 inhalations inhalation Q6H PRN alcohol swabs (Alcohol Pads) topically; to measure blood glucose 4-6 times. amlodipine 10 mg PO DAILY aspirin 81 mg PO DAILY bisacodyl (Dulcolax (bisacodyl)) 10 mg (2 x 5 mg) PO BEDTIME blood sugar diagnostic (Contour Next Test Strips) To measure blood glucose 4-6 times per day. blood-glucose meter (Contour Next One Meter) As directed carvedilol 25 mg PO BID clopidogrel 75 mg PO DAILY dabigatran etexilate mg PO doxazosin 4 mg PO BEDTIME glipizide ER 5 mg PO DAILY hydroxyzine HCl 50 mg PO BEDTIME ibuprofen 600 mg PO Q6H PRN lancets (CareTouch Safety Lancets) To measure blood glucose 4-6 times per day lisinopril 40 mg PO DAILY 90 days metformin ER (Glucophage XR) 1,000 mg (2 x 500 mg) PO BID polyethylene glycol 3350 (Miralax) 238 grams PO ONCE rosuvastatin 40 mg PO BEDTIME sertraline 100 mg PO DAILY spironolactone 25 mg PO DAILY trazodone 150 mg PO BID PRN HPI Comments Details: The patient is a 54-year-old female presenting with diabetes mellitus type 1. She has a past medical history of type 2 diabetes, hypertension, CVA, obesity. She was diagnosed with diabetes mellitus type 2 in December while visiting [place] during workup of stroke. She has a family history of diabetes mellitus type 1, including her grandfather and brother. She was started on glipizide 5 mg daily, but she ran out of medication, leading to discontinuation after one month.She has not been taking any diabetes m edication regimen since discontinuation. She had not been measuring her blood sugars under is not glucose logs to review today. She was advised to stay in [place] for further neurological evaluation but was unable to do so. The patient has been experiencing intermittent cramps and pain in her feet, especially at night. She has been taking medications including carvedilol, clopidogrel, lisinopril, rosuvastatin, sertraline, spironolactone, and trazodone. During most recent admission on April 09, patient was admitted with neurological symptoms concerning for stroke or hypertensive encephalopathy, they draw plasma metanephrines which were negative, which rules out pheochromocytoma. Diet history: The patient reports a dietary change since January, focusing on steamed meats and salads. She occasionally consumes sweets and sodas, although she has reduced soda intake, substituting with coconut water. Her meals often include mature bananas, tostones, and viandas such as yautia and ?vikash. Review of systems: - Neurological: Reports intermittent cramps and pain in feet, especially at night. - Endocrine: Reports dizziness and body aches after starting diabetes medication. - Cardiovascular: Denies chest pain or palpitations. - Respiratory: Denies cough or dyspnea. No recent eye exam Not podiatry Patient denies episode of hypoglycemia (symptomatic) Physical exam: General: Well appearing. NAD. Not Cushingoid or Acromegalic Neck/Thyroid: Thyroid not palpable, no nodules. Eyes: No conjunctival injection, not lid lag or proptosis CV: RRR, no murmur. No edema. Resp:Lungs clear to auscultation bilaterally Abdomen: Soft, nontender. nondistended Extremities/Neuro: No weakness or tremor of outstretched hands Diabetic Foot Exam: Normal sensation to monofilament exam bilaterally Labs: 11/18/24 04/09/25 04/09/25 11:10 03:52 12:41 Creatinine 1.00 Estim Creat Clear Calc 74.1 Estimated GFR 58 Glucose (Clinic) Hemoglobin A1c % 7.8 H TSH 1.24 Plasma Free Metaneph 41 Plasma Free Normeta 120 Plas Total Metaneph 161 Microalb/Creat Ratio 6.4 04/19/25 15:16 Glucose (Clinic) 276 H PFSH Medical History TIA (transient ischemic attack) CVA (cerebral vascular accident) Hypertension FH: breast cancer in first degree relative Abnormal Pap smear of cervix Ovarian cyst Depression Surgical History H/O prior ablation treatment Hx of tubal ligation History of removal of ovarian cyst Family History Paternal Aunt Breast cancer Sister Breast cancer, Onset Age: 46 Social History Household Members: Children Housing: Apartment Housing Other:: lives with adult child in 3rd floor apt Do you presently have visiting nurse or other home services: No Alcohol intake: never Comment: Pt refuses alarms-ambulating independently Patient Tobacco Use Status: Never used Tobacco e-Cigarette/Vaping Use: Never Used Advance Directives Date on File: 05/09/21 service: No Current occupational status: disabled Gender identity: Female Physical Exam Vital Signs: Last Vital Signs Pulse 97 04/19/25 15:10 BP 118/82 04/19/25 15:10 Pulse Ox 97 04/19/25 15:10 Oxygen Delivery Method Room Air 04/19/25 15:10 BMI result Body Mass Index 32.4 Results Reviewed Results Reviewed: Laboratory Last Values Glucose (Clinic) 276 mg/dL (60-115) H 04/19/25 15:16 Assessment & Plan Assessment & Plan (1) Uncontrolled type 2 diabetes mellitus with hyperglycemia: Code(s): E11.65 - Type 2 diabetes mellitus with hyperglycemia Category: Medical (2) Diabetes with neurologic complications: Code(s): E11.49 - Type 2 diabetes mellitus with other diabetic neurological complication Category: Medical Qualifiers: Diabetes mellitus type: type 2 Diabetes mellitus penitentiary insulin use: without vermin exterminator use Diabetes mellitus complication detail: with other neurological complication Qualified Code(s): E11.49 - Type 2 diabetes mellitus with other diabetic neurological complication (3) Poorly controlled diabetes mellitus: Code(s): E11.65 - Type 2 diabetes mellitus with hyperglycemia Category: Medical Plan Uncontrolled type 2 diabetes in the setting of medication noncompliance. Discussed with the patient the importance of improving metabolic control to avoid further complications. She had had a stroke of unclear etiology at this point, she needs to follow with Neurology for further studies to rule out arrhythmia or other no metabolic causes of a stroke. - Start Metformin at 500 mg once daily, increasing to 1g twice daily if tolerated after 10 days. - Continue Glipizide at 5 mg daily with instructions to monitor for hypoglycemia. - Prescribe a glucometer with supplies for regular blood glucose monitoring. - Order a lipid panel to assess current LDL levels given the patient's history of strokes. - Rehab Physician on lifestyle changes including a balanced diet, portion control, and regular exercise (>=50 min/week). - Recommend daily foot checks and wearing appropriate footwear. - Schedule annual dilated eye exam and urine microalbumin test. - Referral to a neurologist for further evaluation of stroke etiology. - Monitor blood glucose four times daily and report any instances of hypoglycemia. - Maintain a consistent meal schedule to effectively manage carbohydrate intake. - Follow-up in 3 months. Orders: Orders Lipid Panel 04/19/25 E11.65 - Type 2 diabetes mellitus with hyperglycemia Referrals Neurology Referral I63.9 - Cerebral infarction, unspecified Medications: New metformin ER (Glucophage XR) Take 2 tablets twice daily 1,000 mg (2 x 500 mg) PO BID 60 tabs 3RF glipizide ER 5 mg PO DAILY 30 tabs 3RF lancets (CareTouch Safety Lancets) To measure blood glucose 4-6 times per day 100 ea 3RF alcohol swabs (Alcohol Pads) topically; to measure blood glucose 4-6 times. 100 ea 0RF blood-glucose meter (Contour Next One Meter) As directed 1 ea 0RF blood sugar diagnostic (Contour Next Test Strips) To measure blood glucose 4-6 times per day. 100 ea 0RF Coding Level of Care Code New Pt Level 5 (38502) Diagnoses Uncontrolled type 2 diabetes mellitus with hyperglycemia E11.65 Type 2 diabetes mellitus with other neurologic complication, without long-term current use of insulin E11.49 Diabetes mellitus type: type 2 Diabetes mellitus penitentiary insulin use: without penitentiary use Diabetes mellitus complication detail: with other neurological complication Poorly controlled diabetes mellitus E11.65 Time Spent (min) 60 Comment Time spent on review of previous records, history, exam/plan and patient education.
[2025-04-19 15:21] LABS: Glucose, Whole Blood 276 mg/dL (60-115)
--- OUTSIDE RECORDS SUMMARY | 2025-04-19 16:18 | XMS_ITS | Clinical Summary ---
Author Organization [facility] Address [address] [place] [address] Phone Care Team Providers Care Plasterer Helper Name Role Phone Ani Bright MD Primary Care Provider [phone] Allergies No known active allergies Medications amLODIPine [...] average glucose, using the formula of the [id number] Average Glucose study (ADAG), Diabetes Care, Vol.31,#8, [...] Bright MD LAB BLOOD ORDERABLES Final Result [facility] from Last 3 Months or Most Recently Relevant to Health Maintenance Insurance Medicaid OR Medicaid OR Care Teams Plasterer Helper Relationship Specialty Start Date End Date Ani Bright MD [address] PCP - General Internal Medicine 02/28/21
--- OUTSIDE RECORDS SUMMARY | 2025-04-19 16:18 | XMS_ITS | Encounter Summary ---
Author Organization [employer] Address [address] [place] [address] Care Team Providers Care Game Developer Name Role Phone Leslee Recinos MD Primary Care Provider Encounter Details Date Type Department Care Team (Late st Contact Info) Description 10/25/[address] [facility] - Main Lab [address] [place] [address] Leslee Recinos MD [address] [place] [phone] Encounter for other general examination Social History [...] LAB CHEMISTRY METHOD 10/25/2024 8:46 AM EDT [facility] ([facility]) [facility] Blood Venous blood specimen / Unknown 10/25/2024 5:48 AM EDT 10/25/2024 8:11 AM EDT us Leslee Recinos MD LAB BLOOD ORDERABLES Final Resu lt [facility] [address] [place] [address], [place] [phone] * (ABNORMAL) Complete blood count (10/25/2024 5:48 AM EDT) WBC 5.9 4.8 - 10.8 K/mcL LAB HEMETOLOGY METHOD 10/25/2024 8:40 AM EDT [facility] RBC 4.80 3.80 - 4.80 M/mcL LAB HEMETOLOGY METHOD 10/25/2024 8:40 AM EDT [facility] Hemoglobin 12.9 11.5 - 16.0 g/dL LAB HEMETOLOGY METHOD 10/25/2024 8:40 AM EDT [facility] Hematocrit 40.0 35.0 - 47.0 % LAB HEMETOLOGY METHOD 10/25/2024 8:40 AM EDT [facility] MCV 83.7 79.0 - 98.0 FL LAB HEMETOLOGY METHOD 10/25/2024 8:40 AM EDT [facility] MCH 27.0 27.0 - 32.0 pcg LAB HEMETOLOGY METHOD 10/25/2024 8:40 AM EDT [facility] MCHC 32.3 32.0 - 37.0 g/dL LAB HEMETOLOGY METHOD 10/25/2024 8:40 AM EDT [facility] RDW 13.1 11.0 - 15.0 % LAB HEMETOLOGY METHOD 10/25/2024 8:40 AM EDT [facility] Platelets 287 130 - 400 K/mcL LAB HEMETOLOGY METHOD 10/25/2024 8:40 AM EDT [facility] MPV 11.2(H) 7.0 - 11.0 FL LAB HEMETOLOGY METHOD 10/25/2024 8:40 AM EDT [facility] NRBC 0.0 <1.0 % LAB HEMETOLOGY METHOD 10/25/2024 8:40 AM EDT [facility] NRBC Absolute 0.00 <0.10 K/mcL LAB HEMETOLOGY METHOD 10/25/2024 8:40 AM EDT [facility] Blood Venous blood specimen / Unknown 10/25/2024 5:48 AM EDT 10/25/2024 8:11 AM EDT us Leslee Recinos MD LAB BLOOD ORDERABLES Final Resu lt [facility] [address] [place] [address], * (ABNORMAL) Basic metabolic panel (10/25/2024 5:48 AM EDT) Sodium 135 133 - 145 mmol/L LAB CHEMISTRY METHOD 10/25/2024 8:46 AM [facility] Potassium 4.1 3.5 - 5.5 mmol/L LAB CHEMISTRY METHOD 10/25/2024 8:46 AM [facility] Chloride 98 96 - 110 mmol/L LAB CHEMISTRY METHOD 10/25/2024 8:46 AM [facility] CO2 28 21 - 32 mmol/L LAB CHEMISTRY METHOD 10/25/2024 8:46 AM [facility] Anion Gap 9 3 - 11 LAB CHEMISTRY METHOD 10/25/2024 8:46 AM [facility] Glucose 157(H) 70 - 100 mg/dL LAB CHEMISTRY METHOD 10/25/2024 8:46 AM [facility] BUN 24 5 - 25 mg/dL LAB CHEMISTRY METHOD 10/25/2024 8:46 AM EDT [facility] Creatinine 1.10 0.50 - 1.10 mg/dL LAB CHEMISTRY METHOD 10/25/2024 8:46 AM EDT [facility] eGFR 60 >=60 mL/min/1. 73m2 LAB CHEMISTRY METHOD 10/25/2024 8:46 AM EDT [facility] Comment:Calculation based on the Chronic Kidney Disease Epidemiology Collaboration (CKD-EPI) equation refit without adjustment for race. BUN/Creatinine Ratio 21.8 LAB CHEMISTRY METHOD 10/25/2024 8:46 AM T [facility] Calcium 9.8 8.5 - 10.5 mg/dL LAB CHEMISTRY METHOD 10/25/2024 8:46 AM T [facility] Blood Venous blood specimen / Unknown 10/25/2024 5:48 AM EDT 10/25/2024 8:11 AM EDT us Leslee Recinos MD LAB BLOOD ORDERABLES Final Resu lt [facility] [address] [place] [address], documented in this encounter Visit Diagnoses Diagnosis Encounter for other general examination documented in this encounter Care Teams Game Developer Relationship Specialty Start Date End Date Leslee Recinos MD [address] [place] [phone] PCP - General Hospitalist Medicine 10/19/24 documented as of this encounter
--- OUTSIDE RECORDS SUMMARY | 2025-04-19 16:18 | XMS_ITS | Encounter Summary ---
Author Organization [employer] Address [address] [place] [address] Care Team Providers Care Career Resource Technician Name Role Phone Leslee Recinos MD Primary Care Provider Encounter Details Date Type Department Care Team (Late st Contact Info) Description 10/23/[address] [facility] - Main Lab [address] [place] [address] Leslee Recinos MD [address] [place] [address] Encounter for other general examination Social History [...] LAB CHEMISTRY METHOD 10/23/2024 1:30 PM EDT [facility] ([facility]) [facility] Blood Venous blood specimen / Unknown Venipuncture / Unknown 10/23/2024 11:18 AM EDT 10/23/2024 12:58 PM EDT Leslee Recinos MD LAB BLOOD ORDERABLES Final Resu lt [facility] [address] [place] [address], * (ABNORMAL) Basic metabolic panel (10/23/2024 11:18 AM EDT) Sodium 137 133 - 145 mmol/L LAB CHEMISTRY METHOD 10/23/2024 1:30 PM [facility] Potassium 4.5 3.5 - 5.5 mmol/L LAB CHEMISTRY METHOD 10/23/2024 1:30 PM [facility] Chloride 101 96 - 110 mmol/L LAB CHEMISTRY METHOD 10/23/2024 1:30 PM [facility] CO2 29 21 - 32 mmol/L LAB CHEMISTRY METHOD 10/23/2024 1:30 PM [facility] Anion Gap 7 3 - 11 LAB CHEMISTRY METHOD 10/23/2024 1:30 PM [facility] Glucose 148(H) 70 - 100 mg/dL LAB CHEMISTRY METHOD 10/23/2024 1:30 PM [facility] BUN 27(H) 5 - 25 mg/dL LAB CHEMISTRY METHOD 10/23/2024 1:30 PM [facility] Creatinine 1.16(H) 0.50 - 1.10 mg/dL LAB CHEMISTRY METHOD 10/23/2024 1:30 PM [facility] eGFR 56(L) >=60 mL/min/1. 73m2 LAB CHEMISTRY METHOD 10/23/2024 1:30 PM [facility] Comment:Calculation based on the Chronic Kidney Disease Epidemiology Collaboration (CKD-EPI) equation refit without adjustment for race. BUN/Creatinine Ratio 23.3 LAB CHEMISTRY METHOD 10/23/2024 1:30 PM [facility] Calcium 10.0 8.5 - 10.5 mg/dL LAB CHEMISTRY METHOD 10/23/2024 1:30 PM EDT [facility] Blood Venous blood specimen / Unknown Venipuncture / Unknown 10/23/2024 11:18 AM EDT 10/23/2024 12:58 PM EDT us Leslee Recinos MD LAB BLOOD ORDERABLES Final Resu lt [facility] [address] [place] [address], documented in this encounter Visit Diagnoses Diagnosis Encounter for other general examination documented in this encounter Care Teams Career Resource Technician Relationship Specialty Start Date End Date Leslee Recinos MD [address] [place] [phone] PCP - General Hospitalist Medicine 10/19/24 documented as of this encounter
--- OUTSIDE RECORDS SUMMARY | 2025-04-19 16:18 | XMS_ITS | Encounter Summary ---
Author Organization [employer] Address [address] [place] [address] Care Team Providers Care Master Electrician Name Role Phone Leslee Recinos MD Primary Care Provider Encounter Details Date Type Department Care Team (Late st Contact Info) Description 11/01/2024 Lab Requisition [facility] - Main Lab [address] [place] [address] Leslee Recinos MD [address] [place] [address] Encounter for other general examination Social History [...] AM EDT) WBC 7.7 4.8 - 10.8 K/[facility] LAB HEMETOLOGY METHOD 11/01/2024 12:18 PM EDT [facility] RBC 4.50 3.80 - 4.80 M/[facility] LAB HEMETOLOGY METHOD 11/01/2024 12:18 PM [...] Resu lt [facility] [address] [place] [address], * (ABNORMAL) Basic metabolic panel (11/01/2024 6:03 AM EDT) Sodium 141 133 - 145 mmol/L LAB CHEMISTRY METHOD 11/01/2024 12:36 PM [facility] Potassium 4.5 3.5 - 5.5 mmol/L LAB CHEMISTRY METHOD 11/01/2024 12:36 PM [facility] Chloride 105 96 - 110 mmol/L LAB CHEMISTRY METHOD 11/01/2024 12:36 PM [facility] CO2 28 21 - 32 mmol/L LAB CHEMISTRY METHOD 11/01/2024 12:36 PM [facility] Anion Gap 8 3 - 11 LAB CHEMISTRY METHOD 11/01/2024 12:36 PM [facility] Glucose 106(H) 70 - 100 mg/dL LAB CHEMISTRY METHOD 11/01/2024 12:36 PM [facility] BUN 14 5 - 25 mg/dL LAB CHEMISTRY METHOD 11/01/2024 12:36 PM [facility] Creatinine 1.03 0.50 - 1.10 mg/dL LAB CHEMISTRY METHOD 11/01/2024 12:36 PM [facility] eGFR 65 >=60 mL/min/1. 73m2 LAB CHEMISTRY METHOD 11/01/2024 12:36 PM [facility] Comment:Calculation based on the Chronic Kidney Disease Epidemiology Collaboration (CKD-EPI) equation refit without adjustment for race. BUN/Creatinine Ratio 13.6 LAB CHEMISTRY METHOD 11/01/2024 12:36 PM [facility] Calcium 9.5 8.5 - 10.5 mg/dL LAB CHEMISTRY METHOD 11/01/2024 12:36 PM [facility] Blood Venous blood specimen / Unknown Venipuncture / Unknown 11/01/2024 6:03 AM EDT 11/01/2024 9:49 AM EDT us Leslee Recinos MD LAB BLOOD ORDERABLES Final Resu lt [facility] ([facility]) [facility] [address] [place] [address], documented in this encounter Visit Diagnoses Diagnosis Encounter for other general examination documented in this encounter Care Teams Master Electrician Relationship Specialty Start Date End Date Leslee Recinos MD [address] [place] [phone] PCP - General Hospitalist Medicine 10/19/24 documented as of this encounter
--- OUTSIDE RECORDS SUMMARY | 2025-04-19 16:18 | XMS_ITS | Clinical Summary ---
Author Organization [employer] Address [address] [facility] [address] [place] [address] Care Team Providers Care Chief Enterprise Architect Name Role Phone Unavailable Primary Care Provider [...] patient's age to complete this topic Insurance [facility] STANDARD
--- OUTSIDE RECORDS SUMMARY | 2025-04-19 16:18 | XMS_ITS | Encounter Summary ---
Author Organization [employer] Address [address] [place] [address] Care Team Providers Care Heel Seat Sander Name Role Phone Leslee Recinos MD Primary Care Provider Encounter Details Date Type Department Care Team (Late st Contact Info) Description 10/21/2024 Lab Requisition [facility] - Main Lab [address] [place] [address] Leslee Recinos MD [address] [place] [address] Encounter for other general examination Social History [...] Resu lt [facility] [address] [place] [address], documented in this encounter Visit Diagnoses Diagnosis Encounter for other general examination documented in this encounter Care Teams Heel Seat Sander Relationship Specialty Start Date End Date Leslee Recinos MD [address] [place] [phone] PCP - General Hospitalist Medicine 10/19/24 documented as of this encounter
--- OUTSIDE RECORDS SUMMARY | 2025-04-19 16:18 | XMS_ITS | Encounter Summary ---
Author Organization [employer] Address [address] [place] [address] Care Team Providers Care Global Climate Change Analyst Name Role Phone Leslee Recinos MD Primary Care Provider Encounter Details Date Type Department Care Team (Late st Contact Info) Description 10/19/2024 Lab Requisition [facility] - Main Lab [address] [facility] [place] [address] Leslee Recinos MD [address] [place] [address] Encounter for other general examination Social History [...] AM EDT) WBC 7.9 4.8 - 10.8 K/[facility] LAB HEMETOLOGY METHOD 10/19/2024 10:31 AM [facility] RBC 5.00(H) 3.80 - 4.80 M/mcL LAB HEMETOLOGY METHOD 10/19/2024 10:31 AM [facility] Hemoglobin 13.7 11.5 - 16.0 g/dL LAB HEMETOLOGY METHOD 10/19/2024 10:31 AM [facility] Hematocrit 41.2 35.0 - 47.0 % LAB HEMETOLOGY METHOD 10/19/2024 10:31 AM [facility] MCV 82.1 79.0 - 98.0 FL LAB HEMETOLOGY METHOD 10/19/2024 10:31 AM [facility] MCH 27.3 27.0 - 32.0 pcg LAB HEMETOLOGY METHOD 10/19/2024 10:31 AM [facility] MCHC 33.3 32.0 - 37.0 g/dL LAB HEMETOLOGY METHOD 10/19/2024 10:31 AM [facility] RDW 13.9 11.0 - 15.0 % LAB HEMETOLOGY METHOD 10/19/2024 10:31 AM [facility] Platelets 261 130 - 400 K/mcL LAB HEMETOLOGY METHOD 10/19/2024 10:31 AM [facility] MPV 10.1 7.0 - 11.0 FL LAB HEMETOLOGY METHOD 10/19/2024 10:31 AM [facility] NRBC 0.0 <1.0 % LAB HEMETOLOGY METHOD 10/19/2024 10:31 AM [facility] NRBC Absolute 0.00 <0.10 K/mcL LAB HEMETOLOGY METHOD 10/19/2024 10:31 AM [facility] Neutrophils Relative 64.6 % LAB HEMETOLOGY METHOD 10/19/2024 10:31 AM [facility] Lymphocytes Relative 26.0 % LAB HEMETOLOGY METHOD 10/19/2024 10:31 AM [facility] Monocytes Relative 7.7 % LAB HEMETOLOGY METHOD 10/19/2024 10:31 AM [facility] Eosinophils Relative 0.9 % LAB HEMETOLOGY METHOD 10/19/2024 10:31 AM [facility] Basophils Relative 0.4 % LAB HEMETOLOGY METHOD 10/19/2024 10:31 AM [facility] Immature Granulocytes Relative 0.4 % LAB HEMETOLOGY METHOD 10/19/2024 10:31 AM [facility] Neutrophils Absolute 5.12 1.50 - 7.00 K/mcL LAB HEMETOLOGY METHOD 10/19/2024 10:31 AM [facility] Lymphocytes Absolute 2.06 1.00 - 5.00 K/mcL LAB HEMETOLOGY METHOD 10/19/2024 10:31 AM [facility] Monocytes Absolute 0.61 0.20 - 1.00 K/mcL LAB HEMETOLOGY METHOD 10/19/2024 10:31 AM [facility] Eosinophils Absolute 0.07 0.00 - 0.50 K/mcL LAB HEMETOLOGY METHOD 10/19/2024 10:31 AM [facility] Basophils Absolute 0.03 0.00 - 0.20 K/mcL LAB HEMETOLOGY METHOD 10/19/2024 10:31 AM [facility] Immature Granulocytes Absolute 0.03 0.00 - 0.03 K/mcL LAB HEMETOLOGY METHOD 10/19/2024 10:31 AM [facility] Blood Venous blood specimen / Unknown Venipuncture / Unknown 10/19/2024 5:40 AM EDT 10/19/2024 9:43 AM EDT us Leslee Recinos MD LAB BLOOD ORDERABLES Final Resu lt [facility] [address] [place] [address], [place] [phone] * Magnesium (10/19/2024 5:40 AM EDT) Pathologist [facility] Magnesium 2.1 1.9 - 2.6 mg/dL LAB CHEMISTRY METHOD 10/19/2024 12:03 PM EDT [facility] Blood Venous blood specimen / Unknown Venipuncture / Unknown 10/19/2024 5:40 AM EDT 10/19/2024 9:43 AM EDT us Leslee Recinos MD LAB BLOOD ORDERABLES Final Resu lt Performing Organization Address City/[facility]/ZIP Co de Phone Number [facility] [address] [place] [address], [place] [phone] * (ABNORMAL) Comprehensive metabolic panel (10/19/2024 5:40 AM EDT) [facility] Sodium 136 133 - 145 mmol/L LAB CHEMISTRY METHOD 10/19/2024 12:03 PM [facility] Potassium 4.1 3.5 - 5.5 mmol/L LAB CHEMISTRY METHOD 10/19/2024 12:03 PM [facility] Chloride 98 96 - 110 mmol/L LAB CHEMISTRY METHOD 10/19/2024 12:03 PM [facility] CO2 27 21 - 32 mmol/L LAB CHEMISTRY METHOD 10/19/2024 12:03 PM [facility] Anion Gap 11 3 - 11 LAB CHEMISTRY METHOD 10/19/2024 12:03 PM [facility] Glucose 170(H) 70 - 100 mg/dL LAB CHEMISTRY METHOD 10/19/2024 12:03 PM [facility] BUN 24 5 - 25 mg/dL LAB CHEMISTRY METHOD 10/19/2024 12:03 PM [facility] Creatinine 1.04 0.50 - 1.10 mg/dL LAB CHEMISTRY METHOD 10/19/2024 12:03 PM [facility] eGFR 64 >=60 mL/min/1. 73m2 LAB CHEMISTRY METHOD 10/19/2024 12:03 PM [facility] Comment:Calculation based on the Chronic Kidney Disease Epidemiology Collaboration (CKD-EPI) equation refit without adjustment for race. BUN/Creatinine Ratio 23.1 LAB CHEMISTRY METHOD 10/19/2024 12:03 PM [facility] Calcium 9.4 8.5 - 10.5 mg/dL LAB CHEMISTRY METHOD 10/19/2024 12:03 PM [facility] AST (SGOT) 19 10 - 42 unit/L LAB CHEMISTRY METHOD 10/19/2024 12:03 PM [facility] ALT (SGPT) 39 10 - 60 unit/L LAB CHEMISTRY METHOD 10/19/2024 12:03 PM [facility] Alkaline Phosphatase 103 42 - 121 unit/L LAB CHEMISTRY METHOD 10/19/2024 12:03 PM [facility] Total Protein 7.2 6.0 - 8.0 g/dL LAB CHEMISTRY METHOD 10/19/2024 12:03 PM [facility] Albumin 3.9 3.2 - 5.0 g/dL LAB CHEMISTRY METHOD 10/19/2024 12:03 PM [facility] Total Bilirubin 0.9 0.0 - 1.4 mg/dL LAB CHEMISTRY METHOD 10/19/2024 12:03 PM [facility] Blood Venous blood specimen / Unknown Venipuncture / Unknown 10/19/2024 5:40 AM EDT 10/19/2024 9:43 AM EDT us Leslee Recinos MD LAB BLOOD ORDERABLES Final Resu lt [facility] [address] [place] [address], documented in this encounter Visit Diagnoses Diagnosis Encounter for other general examination documented in this encounter Care Teams Global Climate Change Analyst Relationship Specialty Start Date End Date Leslee Recinos MD [address] [place] [phone] PCP - General Hospitalist Medicine 10/19/24 documented as of this encounter
--- OUTSIDE RECORDS SUMMARY | 2025-04-19 16:18 | XMS_ITS | Clinical Summary ---
Author Organization [address] [facility] Address [address] [place] [address] Phone Care Team Providers Care Land Manager Name Role Phone Leslee Recinos MD Primary Care Provider [phone] Social History Tobacco Use Types Packs/Day Years Used Date Smoking Tobacco: Never Assessed Comments Unknown Sex and Gender Information Value Date Recorded Sex Assigned at Not on file Legal Sex Female 11:13 AM EST Gender Identity Not on file Sexual Orientation Not on file Plan of Treatment Health Maintenance Due Date Last Done Comments Breast Cancer Screening 1970 Colorectal Cancer Screening: Colonoscopy 1970 Diabetes: Annual Foot Exam 1980 Diabetes: Annual Retina Eye Exam 1980 DTaP,Tdap,and Td Vaccines (1 - Tdap) 1989 Hepatitis B Vaccines (1 of 3 - 19+ 3-dose series) 1989 Cervical Cancer Screening: Pap Smear 12/21/1991 Zoster Vaccines (2 of 2) 10/07/2022 08/12/2022 Depression Screening 07/21/2024 HIV Screening 10/19/2024 Hepatitis C Screening 10/19/2024 [...] exists Cholesterol Screening (Lipid Panel) 02/01/2030 02/01/2025 RSV Immunization Adult Patients (1 - 1-dose 75+ series) 2045 Pneumococcal Vaccine: 50+ Years Completed 08/12/2022 HIB [...] 11/01/2024 12:36 PM EDT [facility] Chloride 105 96 - 110 mmol/L LAB CHEMISTRY METHOD 11/01/2024 12:36 PM EDT [facility] CO2 28 21 - 32 mmol/L LAB CHEMISTRY METHOD 11/01/2024 12:36 PM EDT [facility] Anion Gap 8 3 - [...] mg/dL LAB CHEMISTRY METHOD 11/01/2024 12:36 PM [facility] Blood Venous blood specimen / Unknown Venipuncture / Unknown 11/01/2024 6:03 AM EDT 11/01/2024 9:49 AM EDT us Leslee Recinos MD LAB BLOOD ORDERABLES Final Resu lt [facility] [address] [place] [address], from Last 3 Months or Most Recently Relevant to Health Maintenance Insurance MEDICARE MEDICAID - [place] Care Teams Land Manager Relationship Specialty Start Date End Date Leslee Recinos MD [address] [place] [phone] PCP - General Hospitalist Medicine 10/19/24
== END 2025-04-19 16:05 | disposition home or self-care (01) ==
LOC: HO.ENCR 14:57
PROVIDERS: Visit Provider Student in an Organized Health Care Education/Training Program
DX: E11.65 Type 2 diabetes mellitus with hyperglycemia (principal); E11.49 Type 2 diabetes mellitus with other diabetic neurological complication
CPT/HCPCS: 99205

== ENCOUNTER → 2025-04-19 14:57 | Outpatient (BNVA) | payer MEDICARE, MEDICAID, SELFPAY | PROVIDERS: Visit Provider Student in an Organized Health Care Education/Training Program | DX: E11.65 Type 2 diabetes mellitus with hyperglycemia (principal); E11.49 Type 2 diabetes mellitus with other diabetic neurological complication; Z86.73 Personal history of transient ischemic attack (TIA), and cerebral infarction without residual deficits; Z83.3 Family history of diabetes mellitus | CPT/HCPCS: 82947; 99202 ==

== ENCOUNTER 2025-05-13 10:00 | Outpatient (AMB) | payer MEDICARE, MEDICAID, SELFPAY ==
--- NOTE | 2025-05-13 10:29 | MHC.OFFVIS ---
Vital Signs 05/13/25 10:34 Height 5 ft 6 in Intake Visit Reasons: New Prob - right shoulder pain Intake Note: Michelle is a 54 year old female who presents today for a evaluation of her right shoulder pain. Patient reports ongoing pain since the end of September. Patient states that she had 3 strokes after her first one in September. She states that her pain is on the lateral aspect of the shoulder. Patient notices that her pain is worse when she is lifting her arm, reaching over head and getting dressed. She has tried Tylenol with no relief. Business Intelligence Developer Services: Business Intelligence Developer Present (([id number])) Allergies No Known Allergies (No Known Allergies*) Allergy (Verified 05/13/25 10:33) HPI HPI New Prob - right shoulder pain: Details: Ms. Yoon is a 54-year-old right-hand dominant female who presents to the office today for evaluation of right shoulder pain. She reports that in September of this year she sustained a stroke and then subsequently had several mini strokes after. She does have residual deficits on the right side of her body. However, after the stroke she did participate in physical therapy and occupational therapy in which she has regained some function in the right upper extremity and is able to walk without assistance. She continues to have weakness in the right upper extremity and is unable to lift her arm on her own. [facility] Medical History TIA (transient ischemic attack) CVA (cerebral vascular accident) Hypertension FH: breast cancer in first degree relative Abnormal Pap smear of cervix Ovarian cyst Depression Surgical History H/O prior ablation treatment Hx of tubal ligation History of removal of ovarian cyst Family History Paternal Aunt Breast cancer Sister Breast cancer, Onset Age: 46 Social History Household Members: Children Housing: Apartment Housing Other:: lives with adult child in 3rd floor apt Do you presently have visiting nurse or other home services: No Alcohol intake: never Comment: Pt refuses alarms-ambulating independently Patient Tobacco Use Status: Never used Tobacco e-Cigarette/Vaping Use: Never Used Advance Directives Date on File: 05/09/21 service: No Current occupational status: disabled Gender identity: Female Review of Systems Const All systems reviewed & are unremarkable except as noted in HPI and below Physical Exam Const General: cooperative, healthy appearing and no acute distress Resp Effort & Inspection: normal respiratory effort and able to speak in complete sentences Extrem Other: Right upper extremity able to perform range of motion of the elbow hand and wrist with weakness. Unable to perform forward flexion or abduction due to neurological deficits of the right shoulder. No external rotation motion present. Psych Appearance: grossly normal Mental Status: mental status grossly normal Attitude: cooperative Office Procedures AMB Joint Injection/Aspiration Joint Injection/Aspiration Primary Site: right shoulder Prep: site was prepped using aseptic technique, ethochloride spray was applied and injection warnings given Injected: 40 mg of, with 3 mL of, 1% plain lidocaine, 0.25% bupivacaine, in the subcromial space and decadron Approach Used: posterolateral Procedure: The patient tolerated the procedure well, but had some pain with the injection and there was some relief with the local anesthesia Coding 31576 - Large joint Procedure code (CPT) selection complete Assessment & Plan Assessment & Plan (1) Adhesive capsulitis of right shoulder: Code(s): M75.01 - Adhesive capsulitis of right shoulder Category: Medical (2) Uncontrolled type 2 diabetes mellitus with hyperglycemia: Code(s): E11.65 - Type 2 diabetes mellitus with hyperglycemia Category: Medical (3) Right sided weakness: Code(s): R53.1 - Weakness Category: Medical (4) CVA (cerebral vascular accident): Code(s): I63.9 - Cerebral infarction, unspecified Category: Medical Qualifiers: CVA mechanism: thrombosis Laterality of affected vessel: left Precerebral and cerebral artery: middle cerebral artery Qualified Code(s): I63.312 - Cerebral infarction due to thrombosis of left middle cerebral artery Plan Ms. Yoon is a 54-year-old right-hand dominant female who presents to the office today for evaluation of right shoulder pain. She reports that in September of this year she sustained a stroke and then subsequently had several mini strokes after. She does have residual deficits on the right side of her body. However, after the stroke she did participate in physical therapy and occupational therapy in which she has regained some function in the right upper extremity and is able to walk without assistance. She continues to have weakness in the right upper extremity and is unable to lift her arm on her own. The patient was offered a cortisone injection in the right shoulder. The patient was explained the risks, benefits, and alternatives to receiving this injection. After receiving consent for the injection, the patient had the procedure done while in the office today. The patient tolerated the procedure well with no complications. Additionally, I have recommended physical therapy to work on gentle range of motion of the right shoulder. It appears that due to the right-sided deficits that she sustained after her CVA she was unable to perform any motion leading to adhesive capsulitis. Follow-up will be after physical therapy sessions have been completed, or sooner if needed Coding Level of Care Code Est Pt Level 4 (98363) Diagnoses Adhesive capsulitis of right shoulder M75.01 Uncontrolled type 2 diabetes mellitus with hyperglycemia E11.65 Right sided weakness R53.1 Cerebrovascular accident (CVA) due to thrombosis of left middle cerebral artery I63.312 CVA mechanism: thrombosis Laterality of affected vessel: left Precerebral and cerebral artery: middle cerebral artery CPT Codes Coding - 12659 Large joint: 52213 - Large joint ([id number])
--- OUTSIDE RECORDS SUMMARY | 2025-05-13 11:17 | XMS_ITS | Encounter Summary ---
Author Organization [employer] Address [address] [place] [address] Care Team Providers Care Internet Cafe Manager Name Role Phone Leslee Recinos MD Primary Care Provider Encounter Details Date Type Department Care Team (Late st Contact Info) Description 10/19/2024 Lab Requisition [facility] - Main Lab [address] [facility] [employer] [place] [address] Leslee Recinos MD [address] [place] [phone] Encounter for other general examination Social History [...] AM EDT) WBC 7.9 4.8 - 10.8 K/[facility] LAB HEMETOLOGY METHOD 10/19/2024 10:31 AM [facility] RBC 5.00(H) 3.80 - 4.80 M/mcL LAB HEMETOLOGY METHOD 10/19/2024 10:31 AM [facility] Hemoglobin 13.7 11.5 - 16.0 g/dL LAB HEMETOLOGY METHOD 10/19/2024 10:31 AM [facility] LAB Hematocrit 41.2 35.0 - 47.0 % LAB HEMETOLOGY METHOD 10/19/2024 10:31 AM [facility] LAB MCV 82.1 79.0 - 98.0 FL LAB HEMETOLOGY METHOD 10/19/2024 10:31 AM [facility] LAB MCH 27.3 27.0 - 32.0 pcg LAB HEMETOLOGY METHOD 10/19/2024 10:31 AM [facility] LAB MCHC 33.3 32.0 - 37.0 g/dL LAB HEMETOLOGY METHOD 10/19/2024 10:31 AM [facility] LAB RDW 13.9 11.0 - 15.0 % LAB HEMETOLOGY METHOD 10/19/2024 10:31 AM [facility] Platelets 261 130 - 400 K/mcL LAB HEMETOLOGY METHOD 10/19/2024 10:31 AM [facility] MPV 10.1 7.0 - 11.0 FL LAB HEMETOLOGY METHOD 10/19/2024 10:31 AM [facility] NRBC 0.0 <1.0 % LAB HEMETOLOGY METHOD 10/19/2024 10:31 AM [facility] NRBC Absolute 0.00 <0.10 K/mcL LAB HEMETOLOGY METHOD 10/19/2024 10:31 AM [facility] Neutrophils Relative 64.6 % LAB HEMETOLOGY METHOD 10/19/2024 10:31 AM [facility] Lymphocytes Relative 26.0 % LAB HEMETOLOGY METHOD 10/19/2024 10:31 AM [facility] Monocytes Relative 7.7 % LAB HEMETOLOGY METHOD 10/19/2024 10:31 AM [facility] Eosinophils Relative 0.9 % LAB HEMETOLOGY METHOD 10/19/2024 10:31 AM [facility] Basophils Relative 0.4 % LAB HEMETOLOGY METHOD 10/19/2024 10:31 AM [facility] Immature Granulocytes Relative 0.4 % LAB HEMETOLOGY METHOD 10/19/2024 10:31 AM [facility] Neutrophils Absolute 5.12 1.50 - 7.00 K/mcL LAB HEMETOLOGY METHOD 10/19/2024 10:31 AM [facility] Lymphocytes Absolute 2.06 1.00 - 5.00 K/mcL LAB HEMETOLOGY METHOD 10/19/2024 10:31 AM [facility] Monocytes Absolute 0.61 0.20 - 1.00 K/mcL LAB HEMETOLOGY METHOD 10/19/2024 10:31 AM [facility] Eosinophils Absolute 0.07 0.00 - 0.50 K/mcL LAB HEMETOLOGY METHOD 10/19/2024 10:31 AM [facility] Basophils Absolute 0.03 0.00 - 0.20 K/mcL LAB HEMETOLOGY METHOD 10/19/2024 10:31 AM [facility] Immature Granulocytes Absolute 0.03 0.00 - 0.03 K/mcL LAB HEMETOLOGY METHOD 10/19/2024 10:31 AM [facility] Blood Venous blood specimen / Unknown Venipuncture / Unknown 10/19/2024 5:40 AM EDT 10/19/2024 9:43 AM EDT us Leslee Recinos MD LAB BLOOD ORDERABLES Final Resu lt [facility] [address] [place] [address], [place] [phone] * Magnesium (10/19/2024 5:40 AM EDT) Pathologist [facility] Magnesium 2.1 1.9 - 2.6 mg/dL LAB CHEMISTRY METHOD 10/19/2024 12:03 PM EDT [facility] Blood Venous blood specimen / Unknown Venipuncture / Unknown 10/19/2024 5:40 AM EDT 10/19/2024 9:43 AM EDT us Leslee Recinos MD LAB BLOOD ORDERABLES Final Resu lt Performing Organization Address City/[facility]/ZIP Co de Phone Number [facility] [address] [place] [address], [place] [phone] * (ABNORMAL) Comprehensive metabolic panel (10/19/2024 5:40 AM EDT) [facility] Sodium 136 133 - 145 mmol/L LAB CHEMISTRY METHOD 10/19/2024 12:03 PM [facility] Potassium 4.1 3.5 - 5.5 mmol/L LAB CHEMISTRY METHOD 10/19/2024 12:03 PM [facility] Chloride 98 96 - 110 mmol/L LAB CHEMISTRY METHOD 10/19/2024 12:03 PM [facility] CO2 27 21 - 32 mmol/L LAB CHEMISTRY METHOD 10/19/2024 12:03 PM [facility] Anion Gap 11 3 - 11 LAB CHEMISTRY METHOD 10/19/2024 12:03 PM [facility] Glucose 170(H) 70 - 100 mg/dL LAB CHEMISTRY METHOD 10/19/2024 12:03 PM [facility] BUN 24 5 - 25 mg/dL LAB CHEMISTRY METHOD 10/19/2024 12:03 PM [facility] Creatinine 1.04 0.50 - 1.10 mg/dL LAB CHEMISTRY METHOD 10/19/2024 12:03 PM [facility] eGFR 64 >=60 mL/min/1. 73m2 LAB CHEMISTRY METHOD 10/19/2024 12:03 PM [facility] Comment:Calculation based on the Chronic Kidney Disease Epidemiology Collaboration (CKD-EPI) equation refit without adjustment for race. BUN/Creatinine Ratio 23.1 LAB CHEMISTRY METHOD 10/19/2024 12:03 PM [facility] Calcium 9.4 8.5 - 10.5 mg/dL LAB CHEMISTRY METHOD 10/19/2024 12:03 PM [facility] AST (SGOT) 19 10 - 42 unit/L LAB CHEMISTRY METHOD 10/19/2024 12:03 PM [facility] ALT (SGPT) 39 10 - 60 unit/L LAB CHEMISTRY METHOD 10/19/2024 12:03 PM [facility] Alkaline Phosphatase 103 42 - 121 unit/L LAB CHEMISTRY METHOD 10/19/2024 12:03 PM [facility] Total Protein 7.2 6.0 - 8.0 g/dL LAB CHEMISTRY METHOD 10/19/2024 12:03 PM [facility] Albumin 3.9 3.2 - 5.0 g/dL LAB CHEMISTRY METHOD 10/19/2024 12:03 PM [facility] Total Bilirubin 0.9 0.0 - 1.4 mg/dL LAB CHEMISTRY METHOD 10/19/2024 12:03 PM [facility] Blood Venous blood specimen / Unknown Venipuncture / Unknown 10/19/2024 5:40 AM EDT 10/19/2024 9:43 AM EDT us Leslee Recinos MD LAB BLOOD ORDERABLES Final Resu lt [facility] [address] [place] [address], documented in this encounter Visit Diagnoses Diagnosis Encounter for other general examination documented in this encounter Care Teams Internet Cafe Manager Relationship Specialty Start Date End Date Leslee Recinos MD [address] [place] [phone] PCP - General Hospitalist Medicine 10/19/24 documented as of this encounter
--- OUTSIDE RECORDS SUMMARY | 2025-05-13 11:17 | XMS_ITS | Clinical Summary ---
Author Organization [address] [facility] Address [address] [place] [address] Phone Care Team Providers Care Bottle Carrier Name Role Phone Leslee Recinos MD Primary Care Provider [phone] Social History Tobacco Use Types Packs/Day Years Used Date Smoking Tobacco: Never Assessed Comments Unknown Sex and Gender Information Value Date Recorded Sex Assigned at Not on file Legal Sex Female 11:13 AM EST Gender Identity Not on file Sexual Orientation Not on file Plan of Treatment Health Maintenance Due Date Last Done Comments Breast Cancer Screening 1970 Colorectal Cancer Screening: Colonoscopy 1970 DTaP,Tdap,and Td Vaccines (1 - Tdap) 1989 Hepatitis B Vaccines (1 of 3 - 19+ 3-dose series) 1989 Cervical Cancer Screening: Pap Smear 12/21/1991 Zoster Vaccines (2 of 2) 10/07/2022 08/12/2022 Depression Screening 07/21/2024 HIV Screening 10/19/2024 Hepatitis C Screening 10/19/2024 Medicare Annual Wellness Visit 10/19/2024 Social Influencers of Health Screening 10/19/2024 COVID-19 Vaccine ( season) 2025 09/04/2023, 07/19/2022, 01/29/2021 Influenza Vaccine (#1) 2025 05/27/2022, 2021 Hypertension/CHF/CAD Annual BMP Blood Test 02/01/2026 02/01/2025, [...] Resu lt [facility] [address] [place] [address], from Last 3 Months or Most Recently Relevant to Health Maintenance Insurance MEDICARE MEDICAID - [place] Care Teams Bottle Carrier Relationship Specialty Start Date End Date Leslee Recinos MD [address] [place] [id number] PCP - General Hospitalist Medicine 10/19/24
--- OUTSIDE RECORDS SUMMARY | 2025-05-13 11:17 | XMS_ITS | Clinical Summary ---
Author Organization [facility] Address [address] [place] [address] Phone Care Team Providers Care Price Checker Name Role Phone Ani Bright MD Primary [...] average glucose, using the formula of the T3I-Faaadlw Average Glucose study (ADAG), Diabetes Care, Vol.31,#8, [...] Bright MD LAB BLOOD ORDERABLES Final [facility] Last 3 Months or Most Recently Relevant to Health Maintenance Insurance [place] Care Teams Price Checker Relationship Specialty Start Date End Date Ani Bright MD [address] PCP - General Internal Medicine 02/28/21
--- OUTSIDE RECORDS SUMMARY | 2025-05-13 11:17 | XMS_ITS | Encounter Summary ---
Author Organization [employer] Address [address] [place] [address] Care Team Providers Care Rotational Moulding Operator Name Role Phone Leslee Recinos MD Primary Care Provider Encounter Details Date Type Department Care Team (Late st Contact Info) Description 11/01/2024 Lab Requisition [facility] - Main Lab [address] [place] [address] Leslee Recinos MD [address] [place] [phone] Encounter for other general examination Social History [...] AM EDT) WBC 7.7 4.8 - 10.8 K/[facility] LAB HEMETOLOGY METHOD 11/01/2024 12:18 PM EDT [facility] LAB RBC 4.50 3.80 - 4.80 M/[facility] LAB HEMETOLOGY METHOD 11/01/2024 12:18 PM EDT [facility] LAB Hemoglobin 12.3 11.5 - 16.0 g/dL LAB HEMETOLOGY METHOD 11/01/2024 12:18 PM EDT [facility] LAB Hematocrit 38.8 35.0 - 47.0 % LAB HEMETOLOGY METHOD 11/01/2024 12:18 PM EDT [facility] LAB MCV 85.7 79.0 - 98.0 FL LAB HEMETOLOGY METHOD 11/01/2024 12:18 PM EDT [facility] LAB MCH 27.2 27.0 - 32.0 pcg LAB HEMETOLOGY METHOD 11/01/2024 12:18 PM EDT [facility] LAB MCHC 31.7(L) 32.0 - 37.0 g/dL LAB HEMETOLOGY METHOD 11/01/2024 12:18 PM EDT [facility] LAB RDW 13.2 11.0 - 15.0 % LAB HEMETOLOGY METHOD 11/01/2024 12:18 PM EDT [facility] LAB Platelets 301 130 - 400 K/mcL LAB HEMETOLOGY METHOD 11/01/2024 12:18 PM EDT [facility] LAB MPV 10.8 7.0 - 11.0 FL LAB HEMETOLOGY METHOD 11/01/2024 12:18 PM EDT [facility] LAB NRBC 0.0 <1.0 % LAB HEMETOLOGY METHOD 11/01/2024 12:18 PM EDT [facility] LAB NRBC Absolute 0.00 <0.10 K/mcL LAB HEMETOLOGY METHOD 11/01/2024 12:18 PM EDT [facility] LAB Blood Venous blood specimen / Unknown Venipuncture / Unknown 11/01/2024 6:03 AM EDT 11/01/2024 9:49 AM EDT us Leslee Recinos MD LAB BLOOD ORDERABLES Final Resu lt [facility] LAB [address] [place] [address], * (ABNORMAL) Basic metabolic panel (11/01/2024 6:03 AM EDT) Sodium 141 133 - 145 mmol/L LAB CHEMISTRY METHOD 11/01/2024 12:36 PM [facility] LAB Potassium 4.5 3.5 - 5.5 mmol/L LAB CHEMISTRY METHOD 11/01/2024 12:36 PM [facility] LAB Chloride 105 96 - 110 mmol/L LAB CHEMISTRY METHOD 11/01/2024 12:36 PM [facility] LAB CO2 28 21 - 32 mmol/L LAB CHEMISTRY METHOD 11/01/2024 12:36 PM [facility] LAB Anion Gap 8 3 - 11 LAB CHEMISTRY METHOD 11/01/2024 12:36 PM [facility] LAB Glucose 106(H) 70 - 100 mg/dL LAB CHEMISTRY METHOD 11/01/2024 12:36 PM [facility] LAB BUN 14 5 - 25 mg/dL LAB CHEMISTRY METHOD 11/01/2024 12:36 PM [facility] LAB Creatinine 1.03 0.50 - 1.10 mg/dL LAB CHEMISTRY METHOD 11/01/2024 12:36 PM [facility] LAB eGFR 65 >=60 mL/min/1. 73m2 LAB CHEMISTRY METHOD 11/01/2024 12:36 PM [facility] LAB Comment:Calculation based on the Chronic Kidney Disease Epidemiology Collaboration (CKD-EPI) equation refit without adjustment for race. BUN/Creatinine Ratio 13.6 LAB CHEMISTRY METHOD 11/01/2024 12:36 PM [facility] LAB Calcium 9.5 8.5 - 10.5 mg/dL LAB CHEMISTRY METHOD 11/01/2024 12:36 PM [facility] LAB Blood Venous blood specimen / Unknown Venipuncture / Unknown 11/01/2024 6:03 AM EDT 11/01/2024 9:49 AM EDT us Leslee Recinos MD LAB BLOOD ORDERABLES Final Resu lt [facility] LAB [address] [place] [address], documented in this encounter Visit Diagnoses Diagnosis Encounter for other general examination documented in this encounter Care Teams Rotational Moulding Operator Relationship Specialty Start Date End Date Leslee Recinos MD [address] [place] [phone] PCP - General Hospitalist Medicine 10/19/24 documented as of this encounter
--- OUTSIDE RECORDS SUMMARY | 2025-05-13 11:17 | XMS_ITS | Encounter Summary ---
Author Organization [employer] Address [address] [place] [address] Care Team Providers Care Privacy Compliance Manager Name Role Phone Leslee Recinos MD Primary Care Provider Encounter Details Date Type Department Care Team (Late st Contact Info) Description 10/23/2024 Lab Requisition [facility] - Main Lab [address] [place] [address] Leslee Recinos MD [address] [place] [address] Encounter for other general examination Social History [...] LAB CHEMISTRY METHOD 10/23/2024 1:30 PM EDT [facility] ([facility]) [facility] LAB Blood Venous blood specimen / Unknown Venipuncture / Unknown 10/23/2024 11:18 AM EDT 10/23/2024 12:58 PM EDT Leslee Recinos MD LAB BLOOD ORDERABLES Final Resu lt [facility] LAB [address] [place] [address], * (ABNORMAL) Basic metabolic panel (10/23/2024 11:18 AM EDT) Sodium 137 133 - 145 mmol/L LAB CHEMISTRY METHOD 10/23/2024 1:30 PM [facility] LAB Potassium 4.5 3.5 - 5.5 mmol/L LAB CHEMISTRY METHOD 10/23/2024 1:30 PM [facility] LAB Chloride 101 96 - 110 mmol/L LAB CHEMISTRY METHOD 10/23/2024 1:30 PM [facility] LAB CO2 29 21 - 32 mmol/L LAB CHEMISTRY METHOD 10/23/2024 1:30 PM [facility] LAB Anion Gap 7 3 - 11 LAB CHEMISTRY METHOD 10/23/2024 1:30 PM [facility] LAB Glucose 148(H) 70 - 100 mg/dL LAB CHEMISTRY METHOD 10/23/2024 1:30 PM [facility] LAB BUN 27(H) 5 - 25 mg/dL LAB CHEMISTRY METHOD 10/23/2024 1:30 PM [facility] LAB Creatinine 1.16(H) 0.50 - 1.10 mg/dL LAB CHEMISTRY METHOD 10/23/2024 1:30 PM [facility] LAB eGFR 56(L) >=60 mL/min/1. 73m2 LAB CHEMISTRY METHOD 10/23/2024 1:30 PM [facility] LAB Comment:Calculation based on the Chronic Kidney Disease Epidemiology Collaboration (CKD-EPI) equation refit without adjustment for race. BUN/Creatinine Ratio 23.3 LAB CHEMISTRY METHOD 10/23/2024 1:30 PM [facility] LAB Calcium 10.0 8.5 - 10.5 mg/dL LAB CHEMISTRY METHOD 10/23/2024 1:30 PM EDT [facility] LAB Blood Venous blood specimen / Unknown Venipuncture / Unknown 10/23/2024 11:18 AM EDT 10/23/2024 12:58 PM EDT us Leslee Recinos MD LAB BLOOD ORDERABLES Final Resu lt [facility] LAB [address] [place] [address], documented in this encounter Visit Diagnoses Diagnosis Encounter for other general examination documented in this encounter Care Teams Privacy Compliance Manager Relationship Specialty Start Date End Date Leslee Recinos MD [address] [place] [phone] PCP - General Hospitalist Medicine 10/19/24 documented as of this encounter
--- OUTSIDE RECORDS SUMMARY | 2025-05-13 11:17 | XMS_ITS | Encounter Summary ---
Author Organization [employer] Address [address] [place] [address] Care Team Providers Care Ramp Boss Name Role Phone Leslee Recinos MD Primary Care Provider Encounter Details Date Type Department Care Team (Late st Contact Info) Description 10/21/[address] [facility] - Main Lab [address] [place] [address] Leslee Recinos MD [address] [place] [address] Encounter for other general examination Social History [...] LAB CHEMISTRY METHOD 10/21/2024 10:09 AM EDT [facility] LAB Blood Venous blood specimen / Unknown Venipuncture / Unknown 10/21/2024 5:40 AM EDT 10/21/2024 8:40 AM EDT us Leslee Recinos MD LAB BLOOD ORDERABLES Final Resu lt [facility] LAB [address] [place] [address], documented in this encounter Visit Diagnoses Diagnosis Encounter for other general examination documented in this encounter Care Teams Ramp Boss Relationship Specialty Start Date End Date Leslee Recinos MD [address] [place] [id number] PCP - General Hospitalist Medicine 10/19/24 documented as of this encounter
--- OUTSIDE RECORDS SUMMARY | 2025-05-13 11:17 | XMS_ITS | Encounter Summary ---
Author Organization [employer] Address [address] [place] [address] Care Team Providers Care Solution Lead Name Role Phone Leslee Recinos MD Primary Care Provider Encounter Details Date Type Department Care Team (Late st Contact Info) Description 10/25/[address] [facility] - Main Lab [address] [place] [address] Leslee Recinos MD [address] [place] [address] Encounter for other general examination Social History [...] CHEMISTRY METHOD 10/25/2024 8:46 AM EDT [facility] LAB Blood Venous blood specimen / Unknown 10/25/2024 5:48 AM EDT 10/25/2024 8:11 AM EDT us Leslee Recinos MD LAB BLOOD ORDERABLES Final Resu lt [facility] LAB [address] [place] [address], [place] [phone] * (ABNORMAL) Complete blood count (10/25/2024 5:48 AM EDT) WBC 5.9 4.8 - 10.8 K/mcL LAB HEMETOLOGY METHOD 10/25/2024 8:40 AM EDT [facility] LAB RBC 4.80 3.80 - 4.80 M/mcL LAB HEMETOLOGY METHOD 10/25/2024 8:40 AM EDT [facility] LAB Hemoglobin 12.9 11.5 - 16.0 g/dL LAB HEMETOLOGY METHOD 10/25/2024 8:40 AM EDT [facility] LAB Hematocrit 40.0 35.0 - 47.0 % LAB HEMETOLOGY METHOD 10/25/2024 8:40 AM EDT [facility] LAB MCV 83.7 79.0 - 98.0 FL LAB HEMETOLOGY METHOD 10/25/2024 8:40 AM EDT [facility] LAB MCH 27.0 27.0 - 32.0 pcg LAB HEMETOLOGY METHOD 10/25/2024 8:40 AM EDT [facility] LAB MCHC 32.3 32.0 - 37.0 g/dL LAB HEMETOLOGY METHOD 10/25/2024 8:40 AM EDT [facility] LAB RDW 13.1 11.0 - 15.0 % LAB HEMETOLOGY METHOD 10/25/2024 8:40 AM EDT [facility] LAB Platelets 287 130 - 400 K/mcL LAB HEMETOLOGY METHOD 10/25/2024 8:40 AM EDT [facility] LAB MPV 11.2(H) 7.0 - 11.0 FL LAB HEMETOLOGY METHOD 10/25/2024 8:40 AM EDT [facility] LAB NRBC 0.0 <1.0 % LAB HEMETOLOGY METHOD 10/25/2024 8:40 AM EDT [facility] LAB NRBC Absolute 0.00 <0.10 K/mcL LAB HEMETOLOGY METHOD 10/25/2024 8:40 AM EDT [facility] LAB Blood Venous blood specimen / Unknown 10/25/2024 5:48 AM EDT 10/25/2024 8:11 AM EDT us Leslee Recinos MD LAB BLOOD ORDERABLES Final Resu lt [facility] LAB [address] [place] [address], * (ABNORMAL) Basic metabolic panel (10/25/2024 5:48 AM EDT) Sodium 135 133 - 145 mmol/L LAB CHEMISTRY METHOD 10/25/2024 8:46 AM [facility] LAB Potassium 4.1 3.5 - 5.5 mmol/L LAB CHEMISTRY METHOD 10/25/2024 8:46 AM [facility] LAB Chloride 98 96 - 110 mmol/L LAB CHEMISTRY METHOD 10/25/2024 8:46 AM [facility] LAB CO2 28 21 - 32 mmol/L LAB CHEMISTRY METHOD 10/25/2024 8:46 AM [facility] LAB Anion Gap 9 3 - 11 LAB CHEMISTRY METHOD 10/25/2024 8:46 AM [facility] LAB Glucose 157(H) 70 - 100 mg/dL LAB CHEMISTRY METHOD 10/25/2024 8:46 AM [facility] LAB BUN 24 5 - 25 mg/dL LAB CHEMISTRY METHOD 10/25/2024 8:46 AM EDT [facility] LAB Creatinine 1.10 0.50 - 1.10 mg/dL LAB CHEMISTRY METHOD 10/25/2024 8:46 AM EDT [facility] LAB eGFR 60 >=60 mL/min/1. 73m2 LAB CHEMISTRY METHOD 10/25/2024 8:46 AM EDT [facility] LAB Comment:Calculation based on the Chronic Kidney Disease Epidemiology Collaboration (CKD-EPI) equation refit without adjustment for race. BUN/Creatinine Ratio 21.8 LAB CHEMISTRY METHOD 10/25/2024 8:46 AM T [facility] LAB Calcium 9.8 8.5 - 10.5 mg/dL LAB CHEMISTRY METHOD 10/25/2024 8:46 AM T [facility] LAB Blood Venous blood specimen / Unknown 10/25/2024 5:48 AM EDT 10/25/2024 8:11 AM EDT us Leslee Recinos MD LAB BLOOD ORDERABLES Final Resu lt [facility] LAB [address] [place] [address], documented in this encounter Visit Diagnoses Diagnosis Encounter for other general examination documented in this encounter Care Teams Solution Lead Relationship Specialty Start Date End Date Leslee Recinos MD [address] [place] [phone] PCP - General Hospitalist Medicine 10/19/24 documented as of this encounter
== END 2025-05-13 11:07 | disposition home or self-care (01) ==
LOC: HO.HOS 10:00
PROVIDERS: PCP Internal Medicine; Visit Provider Physician Assistant
DX: M75.01 Adhesive capsulitis of right shoulder (principal); E11.65 Type 2 diabetes mellitus with hyperglycemia; R53.1 Weakness; I63.312 Cerebral infarction due to thrombosis of left middle cerebral artery
CPT/HCPCS: 20610; 99214

== ENCOUNTER → 2025-05-13 10:00 | Outpatient (BNVA) | payer MEDICARE, MEDICAID, SELFPAY | PROVIDERS: PCP Internal Medicine; Visit Provider Physician Assistant | DX: M25.511 Pain in right shoulder (principal); M75.01 Adhesive capsulitis of right shoulder; E11.65 Type 2 diabetes mellitus with hyperglycemia; R53.1 Weakness; I69.398 Other sequelae of cerebral infarction; I10 Essential (primary) hypertension; E66.9 Obesity, unspecified | CPT/HCPCS: 20610; 99212; J0665; J1100; J2003 ==

== ENCOUNTER 2025-05-13 11:02 | Outpatient (AMB) | payer MEDICARE, MEDICAID, SELFPAY ==
--- NOTE | 2025-05-13 11:03 | HO.NEPHOV ---
Vital Signs 05/13/25 11:04 05/13/25 11:15 Height 5 ft 6 in Weight 198 lb 6 oz BMI 32.0 BP 162/100 H 155/86 H Blood Pressure Location Lt brachial Rt brachial Position Sitting Sitting Pulse 83 Pulse Source Pulse Oximeter Pulse Oximetry (%) 95 Oxygen Delivery Method Room Air Intake Visit Reasons: f/u confirmed-see comments Microfilming Document Preparer Required: Yes Microfilming Document Preparer Language: Apron Cleaner Name: Percy [id number] Accompanied by: Self / Same As Patient Allergies No Known Allergies (No Known Allergies*) Allergy (Verified 05/13/25 11:08) Medication List - Last Reconciled 05/13/25 by Kali Franco MD albuterol sulfate 90 mcg/actuation (Ventolin HFA) 2 inhalations inhalation Q6H PRN alcohol swabs (Alcohol Pads) topically; to measure blood glucose 4-6 times. amlodipine 10 mg PO DAILY aspirin 81 mg PO DAILY bisacodyl (Dulcolax (bisacodyl)) 10 mg (2 x 5 mg) PO BEDTIME blood sugar diagnostic (Contour Next Test Strips) To measure blood glucose 4-6 times per day. blood-glucose meter (Contour Next One Meter) As directed carvedilol 25 mg PO BID clopidogrel 75 mg PO DAILY dabigatran etexilate mg PO doxazosin 4 mg PO BEDTIME glipizide ER 5 mg PO DAILY hydroxyzine HCl 50 mg PO BEDTIME ibuprofen 600 mg PO Q6H PRN lancets (CareTouch Safety Lancets) To measure blood glucose 4-6 times per day lisinopril 40 mg PO DAILY 90 days metformin ER (Glucophage XR) 1,000 mg (2 x 500 mg) PO BID polyethylene glycol 3350 (Miralax) 238 grams PO ONCE rosuvastatin 40 mg PO BEDTIME sertraline 100 mg PO DAILY spironolactone 25 mg PO DAILY trazodone 150 mg PO BID PRN Do you need a note to return to daycare/school/sports/work: No HPI Comments Details: 53 yr old woman with resistnant HTN Here for follow up Seems complaint with meds now No change in weight 09/09/24 Recently had an episode of diziness REsolved 05/13/25 - The patient is a 54-year-old female presenting for follow-up regarding hypertension management. - Hypertension: History of elevated blood pressure with missed medication doses. - Reports variable home blood pressure readings, sometimes with dizziness and headaches. - Diabetes Mellitus: Long-standing condition with recent weight loss. - Medication adherence: Missed dose today, plans to take later. PFSH Medical History TIA (transient ischemic attack) CVA (cerebral vascular accident) Hypertension FH: breast cancer in first degree relative Abnormal Pap smear of cervix Ovarian cyst Depression Surgical History H/O prior ablation treatment Hx of tubal ligation History of removal of ovarian cyst Family History Paternal Aunt Breast cancer Sister Breast cancer, Onset Age: 46 Social History Household Members: Children Housing: Apartment Housing Other:: lives with adult child in 3rd floor apt Do you presently have visiting nurse or other home services: No Alcohol intake: never Comment: Pt refuses alarms-ambulating independently Patient Tobacco Use Status: Never used Tobacco e-Cigarette/Vaping Use: Never Used Advance Directives Date on File: 05/09/21 service: No Current occupational status: disabled Gender identity: Female Physical Exam Vital Signs: Last Vital Signs Pulse 83 05/13/25 11:04 BP 155/86 H 05/13/25 11:15 Pulse Ox 95 05/13/25 11:04 Oxygen Delivery Method Room Air 05/13/25 11:04 BMI result Body Mass Index 32.0 Const General: comfortable; No acute distress Orientation/consciousness: patient oriented x3 Eyes General: appearance normal, both eyes and all related structures Visual Craft: normal visual craft by confrontation Neck Neck: Yes supple and Yes no JVD Resp Effort & Inspection: normal respiratory effort and respiratory effort not decreased Auscultation: rhonchi Cardio Palpation: no palpable S3 and no palpable S4 Heart sounds: no rubs GI Inspection: Yes normal to inspection Palpation (GI): Soft to palpation Percussion: Yes normal to percussion Auscultation: normal bowel sounds General: Yes no CVA tenderness Back/Spine/Pelvis Back: no CVA tenderness Skin General skin exam: no petechiae and no purpura Neuro General: patient oriented x3 and no focal motor deficits Extrem General: No clubbing and No edema Results Reviewed Nephrology Results: Hgb, (12.0-16.0) 11.1 g/dl L 04/09/25 WBC, (4.8-10.8) 10.3 X10*3/uL 04/09/25 Plt Count, (160-400) 264 X10*3/uL 04/09/25 Sodium, (135-145) 137 mmol/L 04/09/25 Potassium, (3.3-5.1) 4.5 mmol/L 04/09/25 Chloride, (96-108) 102 mmol/L 04/09/25 Carbon Dioxide, (22-29) 24 mmol/L 04/09/25 BUN, (9-16) 18 mg/dL H 04/09/25 Creatinine, (0.5-1.4) 1.00 mg/dL 04/09/25 Calcium, (8.4-10.2) 9.2 mg/dL 04/09/25 Urine Protein, (Neg-Trace) Negative mg/dL 04/08/25 Renal US 02/11/24 Assessment & Plan Assessment & Plan (1) Hypertension: Code(s): I10 - Essential (primary) hypertension Category: Medical Plan: BP has been better controlled Compliance seems to be the main issue. Currently taking all her medications Needs weight loss Low salt diet (2) Obesity: Code(s): E66.9 - Obesity, unspecified Category: Medical Plan: Seen by weight loss clinic work up in progress Await follow up Orders: Orders Basic Metabolic Panel 3 Months I10 - Essential (primary) hypertension Patient Instructions: - Take your blood pressure medication as prescribed. - Reduce salt in your diet. - Check your blood pressure at home regularly. - Schedule a follow-up visit in three months. - Continue your diabetes management plan and monitor your weight. Coding Level of Care Code Est Pt Level 4 (27959) Diagnoses Hypertension I10 Obesity E66.9
[2025-05-13 11:04] VITALS: BP 162/100; PULSE 83; O2SAT 95; BMI 32.0
[2025-05-13 11:15] VITALS: BP 155/86
--- OUTSIDE RECORDS SUMMARY | 2025-05-13 13:07 | XMS_ITS | Clinical Summary ---
Author Organization [employer] Address [address] [facility] [address] [place] [address] Care Team Providers Care Care Connector Name Role Phone Unavailable Primary Care Provider [...] patient's age to complete this topic Insurance [facility] STANDARD
== END 2025-05-13 11:22 | disposition home or self-care (01) ==
LOC: HO.HKA 11:02
PROVIDERS: Visit Provider Internal Medicine Hypertension Specialist
DX: I10 Essential (primary) hypertension (principal); E66.9 Obesity, unspecified
CPT/HCPCS: 99214

== ENCOUNTER 2025-06-08 09:47 | Outpatient (AMB) | payer MEDICARE, MEDICAID, SELFPAY ==
--- NOTE | 2025-06-08 10:14 | MHC.OFFVIS ---
Vital Signs 06/08/25 10:16 Height 5 ft 6 in Weight 195 lb BMI 31.5 BP 136/80 Intake Visit Reasons: lump on vagina Vocational Education Professional Required: Yes Vocational Education Professional Language: Chemistry Physics Teacher Services: Vocational Education Professional Present (in person) Vocational Education Professional Name: Richelle MOTA Information Interpreted: non-clinical & clinical Business Technology Teacher: Business Technology Teacher Present (Richelle MOTA) Accompanied by: Self / Same As Patient Allergies No Known Allergies (No Known Allergies*) Allergy (Verified 06/08/25 10:18) Post menopausal: Yes HPI Comments Details: Presenting complaining of mons pubis of 2 weeks' duration associated with tenderness PFSH Medical History TIA (transient ischemic attack) CVA (cerebral vascular accident) Hypertension FH: breast cancer in first degree relative Abnormal Pap smear of cervix Ovarian cyst Depression Surgical History H/O prior ablation treatment Hx of tubal ligation History of removal of ovarian cyst Family History Paternal Aunt Breast cancer Sister Breast cancer, Onset Age: 46 Social History Household Members: Children Housing: Apartment Housing Other:: lives with adult child in 3rd floor apt Do you presently have visiting nurse or other home services: No Alcohol intake: never Comment: Pt refuses alarms-ambulating independently Patient Tobacco Use Status: Never used Tobacco e-Cigarette/Vaping Use: Never Used Advance Directives Date on File: 05/09/21 service: No Current occupational status: disabled Gender identity: Female Physical Exam Vital Signs: Last Vital Signs BP 136/80 06/08/25 10:16 BMI result Body Mass Index 31.5 Other: Months pubis 2 cm abscess with cellulitis Office Procedures Incision/Drainage MEASURING MACHINE OPERATOR Incision/Drainage MEASURING MACHINE OPERATOR Details: Before the procedure was started d/w patient the procedure, alternatives (do nothing, medical rx), & all the risks associated with the procedure ( bleeding , infection, vulvar scarring, painful intercourse, injury to vessels, possible need for transfusion with all its risks) then patient signed the consent. Preoperative diagnosis: Mons pubis Abscess. Operation: Mons pubis Abscess I & D Post-operative diagnosis: Same Anesthesia: Lidocaine 1% 3cc used Procedure: The skin was prepped with Betadine, palpation was used for guidance, 11-blade was used to incise the skin contiguous with the abscess cavity. This yielded 2 cc of purulent fluid &substantially decompressed the swelling, a clean dressing was used at the end. The patient tolerated the procedure well. The patient was sent home in stable condition. Discharge Instructions: The patient was instructed to call if temp>100.4, abdominal pain, nausea/vomiting. This note was generated with a voice recognition program. Some errors may have been overlooked during the review of this note. Sometimes these errors may affect the content or meaning of a given sentence. 90596-A&D of vulva/perineum All charges added?: Procedure code (CPT) selection complete Assessment & Plan Assessment & Plan (1) Abscess: Comment: Of mons pubis with cellulitis Code(s): L02.91 - Cutaneous abscess, unspecified Category: Medical Plan: Discussed with the patient the finding on exam abscess of the mons pubis with cellulitis, recommended I&D with Augmentin 875 mg p.o. b.i.d. for 7 days I&D done, culture sent, see procedure note Instructions given to patient to call or go to emergency room in case of fever, skin discoloration worsening of pain or redness and to schedule 2 week follow-up appointment. All questions answered, the patient verbalized understanding Orders: Orders Incision & Drainage MEASURING MACHINE OPERATOR Today L02.91 - Cutaneous abscess, unspecified Medications: New amoxicillin-pot clavulanate 875-125 mg 1 tab PO BID 14 tabs 0RF 7 days Coding Level of Care Code Est Pt Level 3 (01259) Procedure Only Diagnoses Abscess L02.91 CPT Codes Incision/Drainage MEASURING MACHINE OPERATOR - IDGYN 1: 89673-N&D of vulva/perineum ([id number])
[2025-06-08 10:16] VITALS: BP 136/80; BMI 31.5
== END 2025-06-08 10:56 | disposition home or self-care (01) ==
LOC: HO.HWS 09:47
PROVIDERS: PCP Internal Medicine; Visit Provider Obstetrics & Gynecology
DX: L02.91 Cutaneous abscess, unspecified (principal)
CPT/HCPCS: 56405

== ENCOUNTER 2025-06-08 09:47 | Outpatient (REF) | payer MEDICARE, MEDICAID, SELFPAY | END 2025-06-08 09:48 | disposition home or self-care (01) | LOC: HO.LNP 09:47 | PROVIDERS: PCP Internal Medicine; Visit Provider Obstetrics & Gynecology | DX: L02.215 Cutaneous abscess of perineum (principal) | CPT/HCPCS: 56405; 87070; 87077; 87186; 87205 ==

== ENCOUNTER 2025-06-22 12:46 | Outpatient (AMB) | payer MEDICARE, MEDICAID, SELFPAY ==
--- NOTE | 2025-06-22 13:06 | A.OFFVIS_ITS ---
Vital Signs 06/22/25 13:08 Height 5 ft 6 in Weight 195 lb BMI 31.5 Intake Visit Reasons: Follow up abscess Wire Mesh Filter Fabricator Required: Yes Wire Mesh Filter Fabricator Language: Microfilm Camera Operator Services: Wire Mesh Filter Fabricator Present (in person) Wire Mesh Filter Fabricator Name: Richelle MOTA Information Interpreted: non-clinical & clinical Utility Systems Repairer Operator: Utility Systems Repairer Operator Present (Richelle MOTA) Accompanied by: Daughter Allergies No Known Allergies (No Known Allergies*) Allergy (Verified 06/22/25 13:09) Post menopausal: Yes HPI Comments Details: Presenting status post I and D of mons pubis abscess, culture grew staph aureus sensitive to tetracycline, the patient has been last 3 days on tetracycline 500 p.o. b.i.d. and has 4 more days left , the abscess has improved markedly but has not resolved completely PFSH Medical History TIA (transient ischemic attack) CVA (cerebral vascular accident) Hypertension FH: breast cancer in first degree relative Abnormal Pap smear of cervix Ovarian cyst Depression Surgical History H/O prior ablation treatment Hx of tubal ligation History of removal of ovarian cyst Family History Paternal Aunt Breast cancer Sister Breast cancer, Onset Age: 46 Social History Household Members: Children Housing: Apartment Housing Other:: lives with adult child in 3rd floor apt Do you presently have visiting nurse or other home services: No Alcohol intake: never Comment: Pt refuses alarms-ambulating independently Patient Tobacco Use Status: Never used Tobacco e-Cigarette/Vaping Use: Never Used Advance Directives Date on File: 05/09/21 service: No Current occupational status: disabled Gender identity: Female Physical Exam Vital Signs: BMI result Body Mass Index 31.5 Skin Other: Mass pubis abscess redness improved markedly minimally draining Assessment & Plan Assessment & Plan (1) Abscess: Comment: Of mons pubis with cellulitis improving Code(s): L02.91 - Cutaneous abscess, unspecified Category: Medical Plan: Discussed with the patient the finding, improvement of her cellulitis and abscess but not completely resolved, recommended the patient to complete her tetracycline and to call back in case of persistence of her abscess and or redness fever above 100.4 or skin discoloration. All questions answered, the patient verbalized understanding Coding Level of Care Code Est Pt Level 3 (93387) Diagnoses Abscess L02.91
[2025-06-22 13:08] VITALS: BMI 31.5
--- OUTSIDE RECORDS SUMMARY | 2025-06-22 15:00 | XMS_ITS | Encounter Summary ---
Author Organization [email or web address] Address [address] [place] [address] Care Team Providers Care Computer Numeric Control Setter Name Role Phone Leslee Recinos MD Primary Care Provider Encounter Details Date Type Department Care Team (Late st Contact Info) Description 11/01/2024 Lab Requisition [facility] - Main Lab [address] [place] [address] Leslee Recinos MD [address] [place] [address] Encounter for other general examination Social History [...] AM EDT) WBC 7.7 4.8 - 10.8 K/[facility] LAB HEMETOLOGY METHOD 11/01/2024 12:18 PM EDT [facility] LAB RBC 4.50 3.80 - 4.80 M/[facility] LAB HEMETOLOGY METHOD 11/01/2024 12:18 PM EDT [facility] LAB Hemoglobin 12.3 11.5 - 16.0 g/dL LAB HEMETOLOGY METHOD 11/01/2024 12:18 PM EDT [facility] LAB Hematocrit 38.8 35.0 - 47.0 % LAB HEMETOLOGY METHOD 11/01/2024 12:18 PM EDT [facility] LAB MCV 85.7 79.0 - 98.0 FL LAB HEMETOLOGY METHOD 11/01/2024 12:18 PM EDT [facility] LAB MCH 27.2 27.0 - 32.0 pcg LAB HEMETOLOGY METHOD 11/01/2024 12:18 PM EDT [facility] LAB MCHC 31.7(L) 32.0 - 37.0 g/dL LAB HEMETOLOGY METHOD 11/01/2024 12:18 PM EDT [facility] LAB RDW 13.2 11.0 - 15.0 % LAB HEMETOLOGY METHOD 11/01/2024 12:18 PM EDT [facility] LAB Platelets 301 130 - 400 K/mcL LAB HEMETOLOGY METHOD 11/01/2024 12:18 PM EDT [facility] LAB MPV 10.8 7.0 - 11.0 FL LAB HEMETOLOGY METHOD 11/01/2024 12:18 PM EDT [facility] LAB NRBC 0.0 <1.0 % LAB HEMETOLOGY METHOD 11/01/2024 12:18 PM EDT [facility] LAB NRBC Absolute 0.00 <0.10 K/mcL LAB HEMETOLOGY METHOD 11/01/2024 12:18 PM EDT [facility] LAB Blood Venous blood specimen / Unknown Venipuncture / Unknown 11/01/2024 6:03 AM EDT 11/01/2024 9:49 AM EDT us Leslee Recinos MD LAB BLOOD ORDERABLES Final Resu lt [facility] [address] [place] [address], * (ABNORMAL) Basic metabolic panel (11/01/2024 6:03 [...] MD LAB BLOOD ORDERABLES Final Resu lt [facility] ([facility]) [facility] [address] [place] [address], documented in this encounter Visit Diagnoses Diagnosis Encounter for other general examination documented in this encounter Care Teams Computer Numeric Control Setter Relationship Specialty Start Date End Date Leslee Recinos MD [address] [place] [phone] PCP - General Hospitalist Medicine 10/19/24 documented as of this encounter
--- OUTSIDE RECORDS SUMMARY | 2025-06-22 15:00 | XMS_ITS | Clinical Summary ---
Author Organization [address] [facility] Address [address] [place] [address] Phone Care Team Providers Care Panel Monitor Name Role Phone Leslee Recinos MD Primary Care Provider Social History Tobacco Use Types Packs/Day Years [...] LAB CHEMISTRY METHOD 11/01/2024 12:36 PM EDT [facility] LAB eGFR 65 >=60 mL/min/1. 73m2 LAB CHEMISTRY METHOD 11/01/2024 12:36 PM EDT [facility] LAB Comment:Calculation based on the Chronic Kidney Disease Epidemiology Collaboration (CKD-EPI) equation refit without adjustment for race. BUN/Creatinine Ratio 13.6 LAB CHEMISTRY METHOD 11/01/2024 12:36 PM EDT [facility] LAB Calcium 9.5 8.5 - 10.5 mg/dL LAB CHEMISTRY METHOD 11/01/2024 12:36 PM EDT [facility] LAB Blood Venous blood specimen / Unknown Venipuncture / Unknown 11/01/2024 6:03 AM EDT 11/01/2024 9:49 AM EDT us Leslee Recinos MD LAB BLOOD ORDERABLES Final Resu lt [facility] [address] [place] [address], from Last 3 Months or Most Recently Relevant to Health Maintenance Insurance MEDICARE MEDICAID - [place] Care Teams Panel Monitor Relationship Specialty Start Date End Date Leslee Recinos MD [address] [place] [phone] PCP - General Hospitalist Medicine 10/19/24
--- OUTSIDE RECORDS SUMMARY | 2025-06-22 15:00 | XMS_ITS | Encounter Summary ---
Author Organization [employer] Address [address] [place] [address] Care Team Providers Care Advertising Sales Manager Name Role Phone Leslee Recinos MD Primary Care Provider Encounter Details Date Type Department Care Team (Late st Contact Info) Description 10/23/[address] [facility] - Main Lab [address] [place] [address] Leslee Recinos MD [address] [place] [phone] Encounter for other general examination Social History [...] LAB CHEMISTRY METHOD 10/23/2024 1:30 PM EDT [facility] Blood Venous blood specimen / Unknown Venipuncture / Unknown 10/23/2024 11:18 AM EDT 10/23/2024 12:58 PM EDT us Leslee Recinos MD LAB BLOOD ORDERABLES Final Resu lt [facility] [address] [place] [address], * (ABNORMAL) Basic metabolic panel (10/23/2024 11:18 AM EDT) Sodium 137 133 - 145 mmol/L LAB CHEMISTRY METHOD 10/23/2024 1:30 PM [facility] Potassium 4.5 3.5 - 5.5 mmol/L LAB CHEMISTRY METHOD 10/23/2024 1:30 PM [facility] Chloride 101 96 - 110 mmol/L LAB CHEMISTRY METHOD 10/23/2024 1:30 PM [facility] CO2 29 21 - 32 mmol/L LAB CHEMISTRY METHOD 10/23/2024 1:30 PM [facility] Anion Gap 7 3 - 11 LAB CHEMISTRY METHOD 10/23/2024 1:30 PM [facility] Glucose 148(H) 70 - 100 mg/dL LAB CHEMISTRY METHOD 10/23/2024 1:30 PM [facility] BUN 27(H) 5 - 25 mg/dL LAB CHEMISTRY METHOD 10/23/2024 1:30 PM [facility] Creatinine 1.16(H) 0.50 - 1.10 mg/dL LAB CHEMISTRY METHOD 10/23/2024 1:30 PM [facility] eGFR 56(L) >=60 mL/min/1. 73m2 LAB CHEMISTRY METHOD 10/23/2024 1:30 PM [facility] LAB Comment:Calculation based on the Chronic Kidney Disease Epidemiology Collaboration (CKD-EPI) equation refit without adjustment for race. BUN/Creatinine Ratio 23.3 LAB CHEMISTRY METHOD 10/23/2024 1:30 PM [facility] Calcium 10.0 8.5 - 10.5 mg/dL LAB CHEMISTRY METHOD 10/23/2024 1:30 PM EDT [facility] Blood Venous blood specimen / Unknown Venipuncture / Unknown 10/23/2024 11:18 AM EDT 10/23/2024 12:58 PM EDT us Leslee Recinos MD LAB BLOOD ORDERABLES Final Resu lt [facility] [address] [place] [address], documented in this encounter Visit Diagnoses Diagnosis Encounter for other general examination documented in this encounter Care Teams Advertising Sales Manager Relationship Specialty Start Date End Date Leslee Recinos MD [address] [place] [phone] PCP - General Hospitalist Medicine 10/19/24 documented as of this encounter
--- OUTSIDE RECORDS SUMMARY | 2025-06-22 15:00 | XMS_ITS | Encounter Summary ---
Author Organization [employer] Address [address] [place] [address] Care Team Providers Care Grades 1 Thru 6 Visiting Teacher Name Role Phone Leslee Recinos MD Primary Care Provider Encounter Details Date Type Department Care Team (Late st Contact Info) Description 10/19/2024 Lab Requisition [facility] - Main Lab [address] [facility] [place] [address] Leslee Recinos MD [address] [place] [phone] Encounter for other general examination Social History [...] AM EDT) WBC 7.9 4.8 - 10.8 [facility] LAB HEMETOLOGY METHOD 10/19/2024 10:31 AM [facility] LAB RBC 5.00(H) 3.80 - 4.80 M/mcL LAB HEMETOLOGY METHOD 10/19/2024 10:31 AM [facility] LAB Hemoglobin 13.7 11.5 - 16.0 g/dL LAB HEMETOLOGY METHOD 10/19/2024 10:31 AM [facility] LAB Hematocrit 41.2 35.0 - 47.0 % LAB HEMETOLOGY METHOD 10/19/2024 10:31 AM [facility] LAB MCV 82.1 79.0 - 98.0 FL LAB HEMETOLOGY METHOD 10/19/2024 10:31 AM [facility] LAB MCH 27.3 27.0 - 32.0 pcg LAB HEMETOLOGY METHOD 10/19/2024 10:31 AM [facility] LAB MCHC 33.3 32.0 - 37.0 g/dL LAB HEMETOLOGY METHOD 10/19/2024 10:31 AM [facility] LAB RDW 13.9 11.0 - 15.0 % LAB HEMETOLOGY METHOD 10/19/2024 10:31 AM [facility] LAB Platelets 261 130 - 400 K/mcL LAB HEMETOLOGY METHOD 10/19/2024 10:31 AM [facility] LAB MPV 10.1 7.0 - 11.0 FL LAB HEMETOLOGY METHOD 10/19/2024 10:31 AM [facility] LAB NRBC 0.0 <1.0 % LAB HEMETOLOGY METHOD 10/19/2024 10:31 AM [facility] LAB NRBC Absolute 0.00 <0.10 K/mcL LAB HEMETOLOGY METHOD 10/19/2024 10:31 AM [facility] Neutrophils Relative 64.6 % LAB HEMETOLOGY METHOD 10/19/2024 10:31 AM [facility] Lymphocytes Relative 26.0 % LAB HEMETOLOGY METHOD 10/19/2024 10:31 AM [facility] Monocytes Relative 7.7 % LAB HEMETOLOGY METHOD 10/19/2024 10:31 AM [facility] Eosinophils Relative 0.9 % LAB HEMETOLOGY METHOD 10/19/2024 10:31 AM [facility] Basophils Relative 0.4 % LAB HEMETOLOGY METHOD 10/19/2024 10:31 AM [facility] Immature Granulocytes Relative 0.4 % LAB HEMETOLOGY METHOD 10/19/2024 10:31 AM [facility] LAB Neutrophils Absolute 5.12 1.50 - 7.00 K/mcL LAB HEMETOLOGY METHOD 10/19/2024 10:31 AM [facility] Lymphocytes Absolute 2.06 1.00 - 5.00 K/mcL LAB HEMETOLOGY METHOD 10/19/2024 10:31 AM [facility] Monocytes Absolute 0.61 0.20 - 1.00 K/mcL LAB HEMETOLOGY METHOD 10/19/2024 10:31 AM [facility] Eosinophils Absolute 0.07 0.00 - 0.50 K/mcL LAB HEMETOLOGY METHOD 10/19/2024 10:31 AM [facility] Basophils Absolute 0.03 0.00 - 0.20 K/mcL LAB HEMETOLOGY METHOD 10/19/2024 10:31 AM [facility] Immature Granulocytes Absolute 0.03 0.00 - 0.03 K/mcL LAB HEMETOLOGY METHOD 10/19/2024 10:31 AM [facility] Blood Venous blood specimen / Unknown Venipuncture / Unknown 10/19/2024 5:40 AM EDT 10/19/2024 9:43 AM EDT us Leslee Recinos MD LAB BLOOD ORDERABLES Final Resu lt [facility] LAB [address] [place] [address], [place] [phone] * Magnesium (10/19/2024 5:40 AM EDT) Pathologist [facility] Magnesium 2.1 1.9 - 2.6 mg/dL LAB CHEMISTRY METHOD 10/19/2024 12:03 PM EDT [facility] LAB Blood Venous blood specimen / Unknown Venipuncture / Unknown 10/19/2024 5:40 AM EDT 10/19/2024 9:43 AM EDT us Leslee Recinos MD LAB BLOOD ORDERABLES Final Resu lt Performing Organization Address City/[facility]/ZIP Co de Phone Number [facility] [address] [place] [address], [place] [phone] * (ABNORMAL) Comprehensive metabolic panel (10/19/2024 5:40 AM EDT) [facility] Sodium 136 133 - 145 mmol/L LAB CHEMISTRY METHOD 10/19/2024 12:03 PM [facility] Potassium 4.1 3.5 - 5.5 mmol/L LAB CHEMISTRY METHOD 10/19/2024 12:03 PM [facility] Chloride 98 96 - 110 mmol/L LAB CHEMISTRY METHOD 10/19/2024 12:03 PM [facility] CO2 27 21 - 32 mmol/L LAB CHEMISTRY METHOD 10/19/2024 12:03 PM [facility] Anion Gap 11 3 - 11 LAB CHEMISTRY METHOD 10/19/2024 12:03 PM [facility] Glucose 170(H) 70 - 100 mg/dL LAB CHEMISTRY METHOD 10/19/2024 12:03 PM [facility] BUN 24 5 - 25 mg/dL LAB CHEMISTRY METHOD 10/19/2024 12:03 PM [facility] Creatinine 1.04 0.50 - 1.10 mg/dL LAB CHEMISTRY METHOD 10/19/2024 12:03 PM [facility] LAB eGFR 64 >=60 mL/min/1. 73m2 LAB CHEMISTRY METHOD 10/19/2024 12:03 PM [facility] LAB Comment:Calculation based on the Chronic Kidney Disease Epidemiology Collaboration (CKD-EPI) equation refit without adjustment for race. BUN/Creatinine Ratio 23.1 LAB CHEMISTRY METHOD 10/19/2024 12:03 PM [facility] Calcium 9.4 8.5 - 10.5 mg/dL LAB CHEMISTRY METHOD 10/19/2024 12:03 PM [facility] AST (SGOT) 19 10 - 42 unit/L LAB CHEMISTRY METHOD 10/19/2024 12:03 PM [facility] ALT (SGPT) 39 10 - 60 unit/L LAB CHEMISTRY METHOD 10/19/2024 12:03 PM [facility] Alkaline Phosphatase 103 42 - 121 unit/L LAB CHEMISTRY METHOD 10/19/2024 12:03 PM [facility] Total Protein 7.2 6.0 - 8.0 g/dL LAB CHEMISTRY METHOD 10/19/2024 12:03 PM [facility] Albumin 3.9 3.2 - 5.0 g/dL LAB CHEMISTRY METHOD 10/19/2024 12:03 PM [facility] Total Bilirubin 0.9 0.0 - 1.4 mg/dL LAB CHEMISTRY METHOD 10/19/2024 12:03 PM [facility] Blood Venous blood specimen / Unknown Venipuncture / Unknown 10/19/2024 5:40 AM EDT 10/19/2024 9:43 AM EDT us Leslee Recinos MD LAB BLOOD ORDERABLES Final Resu lt [facility] HOSPITAL LAB [address] [place] [address], documented in this encounter Visit Diagnoses Diagnosis Encounter for other general examination documented in this encounter Care Teams Grades 1 Thru 6 Visiting Teacher Relationship Specialty Start Date End Date Leslee Recinos MD [address] [place] [phone] PCP - General Hospitalist Medicine 10/19/24 documented as of this encounter
--- OUTSIDE RECORDS SUMMARY | 2025-06-22 15:00 | XMS_ITS | Encounter Summary ---
Author Organization [employer] Address [address] [place] [address] Care Team Providers Care Physical Biochemist Name Role Phone Leslee Recinos MD Primary Care Provider Encounter Details Date Type Department Care Team (Late st Contact Info) Description 10/21/2024 Lab Requisition [facility] - Main Lab [address] [place] [address] Leslee Recinos MD [address] [place] [phone] Encounter for other general examination Social History [...] LAB CHEMISTRY METHOD 10/21/2024 10:09 AM EDT [facility] LAB Blood Venous blood specimen / Unknown Venipuncture / Unknown 10/21/2024 5:40 AM EDT 10/21/2024 8:40 AM EDT us Leslee Recinos MD LAB BLOOD ORDERABLES Final Resu lt [facility] [address] [place] [address], documented in this encounter Visit Diagnoses Diagnosis Encounter for other general examination documented in this encounter Care Teams Physical Biochemist Relationship Specialty Start Date End Date Leslee Recinos MD [address] [place] [phone] PCP - General Hospitalist Medicine 10/19/24 documented as of this encounter
--- OUTSIDE RECORDS SUMMARY | 2025-06-22 15:00 | XMS_ITS | Encounter Summary ---
Author Organization [employer] Address [address] [place] [address] Care Team Providers Care Flight Simulator Teacher Name Role Phone Leslee Recinos MD Primary Care Provider Encounter Details Date Type Department Care Team (Late st Contact Info) Description 10/25/2024 Lab Requisition [facility] - Main Lab [address] [place] [address] Leslee Recinos MD [address] [place] [phone] Encounter for other general examination Social History [...] LAB CHEMISTRY METHOD 10/25/2024 8:[address] [facility] Blood Venous blood specimen / Unknown 10/25/2024 5:48 AM EDT 10/25/2024 8:11 AM EDT us Leslee Recinos MD LAB BLOOD ORDERABLES Final Resu lt [facility] [address] [place] [address], [place] [phone] * (ABNORMAL) Complete blood count (10/25/2024 5:48 AM EDT) WBC 5.9 4.8 - 10.8 K/mcL LAB HEMETOLOGY METHOD 10/25/2024 8:40 AM EDT [facility] RBC 4.80 3.80 - 4.80 M/mcL LAB HEMETOLOGY METHOD 10/25/2024 8:40 AM EDT [facility] Hemoglobin 12.9 11.5 - 16.0 g/dL LAB HEMETOLOGY METHOD 10/25/2024 8:40 AM EDT [facility] LAB Hematocrit 40.0 35.0 - 47.0 % LAB HEMETOLOGY METHOD 10/25/2024 8:40 AM EDT [facility] LAB MCV 83.7 79.0 - 98.0 FL LAB HEMETOLOGY METHOD 10/25/2024 8:40 AM EDT [facility] MCH 27.0 27.0 - 32.0 pcg LAB HEMETOLOGY METHOD 10/25/2024 8:40 AM EDT [facility] MCHC 32.3 32.0 - 37.0 g/dL LAB HEMETOLOGY METHOD 10/25/2024 8:40 AM EDT [facility] RDW 13.1 11.0 - 15.0 % LAB HEMETOLOGY METHOD 10/25/2024 8:40 AM EDT [facility] Platelets 287 130 - 400 K/mcL LAB HEMETOLOGY METHOD 10/25/2024 8:40 AM EDT [facility] MPV 11.2(H) 7.0 - 11.0 FL LAB HEMETOLOGY METHOD 10/25/2024 8:40 AM EDT [facility] NRBC 0.0 <1.0 % LAB HEMETOLOGY METHOD 10/25/2024 8:40 AM EDT [facility] LAB NRBC Absolute 0.00 <0.10 K/mcL LAB HEMETOLOGY METHOD 10/25/2024 8:40 AM EDT [facility] Blood Venous blood specimen / Unknown 10/25/2024 5:48 AM EDT 10/25/2024 8:11 AM EDT us Leslee Recinos MD LAB BLOOD ORDERABLES Final Resu lt [facility] [address] [place] [address], * (ABNORMAL) Basic metabolic panel (10/25/2024 5:48 AM EDT) Sodium 135 133 - 145 mmol/L LAB CHEMISTRY METHOD 10/25/2024 8:46 AM [facility] Potassium 4.1 3.5 - 5.5 mmol/L LAB CHEMISTRY METHOD 10/25/2024 8:46 AM [facility] LAB Chloride 98 96 - 110 mmol/L LAB CHEMISTRY METHOD 10/25/2024 8:46 AM [facility] LAB CO2 28 21 - 32 mmol/L LAB CHEMISTRY METHOD 10/25/2024 8:46 AM [facility] LAB Anion Gap 9 3 - 11 LAB CHEMISTRY METHOD 10/25/2024 8:46 AM [facility] LAB Glucose 157(H) 70 - 100 mg/dL LAB CHEMISTRY METHOD 10/25/2024 8:46 AM [facility] LAB BUN 24 5 - 25 mg/dL LAB CHEMISTRY METHOD 10/25/2024 8:46 AM EDT [facility] Creatinine 1.10 0.50 - 1.10 mg/dL LAB CHEMISTRY METHOD 10/25/2024 8:46 AM EDT [facility] LAB eGFR 60 >=60 mL/min/1. 73m2 LAB CHEMISTRY METHOD 10/25/2024 8:46 AM EDT [facility] Comment:Calculation based on the Chronic Kidney Disease Epidemiology Collaboration (CKD-EPI) equation refit without adjustment for race. BUN/Creatinine Ratio 21.8 LAB CHEMISTRY METHOD 10/25/2024 8:46 AM T [facility] Calcium 9.8 8.5 - 10.5 mg/dL LAB CHEMISTRY METHOD 10/25/2024 8:46 AM T [facility] LAB Blood Venous blood specimen / Unknown 10/25/2024 5:48 AM EDT 10/25/2024 8:11 AM EDT us Leslee Recinos MD LAB BLOOD ORDERABLES Final Resu lt [facility] [address] [place] [address], documented in this encounter Visit Diagnoses Diagnosis Encounter for other general examination documented in this encounter Care Teams Flight Simulator Teacher Relationship Specialty Start Date End Date Leslee Recinos MD [address] [place] [phone] PCP - General Hospitalist Medicine 10/19/24 documented as of this encounter
--- OUTSIDE RECORDS SUMMARY | 2025-06-22 15:00 | XMS_ITS | Clinical Summary ---
Author Organization [employer] Address [address] [facility] [address] [place] [address] Care Team Providers Care District Loss Prevention Manager Name Role Phone Unavailable Primary Care [...] patient's age to complete this topic Insurance [facility] STANDARD
== END 2025-06-22 13:28 | disposition home or self-care (01) ==
LOC: HO.HWS 12:47
PROVIDERS: PCP Internal Medicine; Visit Provider Obstetrics & Gynecology
DX: L02.91 Cutaneous abscess, unspecified (principal)
CPT/HCPCS: 99213

== ENCOUNTER → 2025-06-22 12:46 | Outpatient (BNVA) | payer MEDICARE, MEDICAID, SELFPAY | PROVIDERS: PCP Internal Medicine; Visit Provider Obstetrics & Gynecology | DX: L02.91 Cutaneous abscess, unspecified (principal) | CPT/HCPCS: 99212 ==